=== PATIENT | female | born 1985 | race Caucasian/White ===

== ENCOUNTER 2017-06-02 22:53 | Emergency (ER) | payer MEDICAID, SELFPAY ==
[2017-06-02 22:54] VITALS: BP 142/91; PULSE 130; RESP 18; TEMP 37.1; O2SAT 98; BMI 31.1
--- NOTE | 2017-06-02 23:36 | EKG12_ITS ---
Test Reason : CP Blood Pressure : / mmHG Vent. Rate : 117 BPM Atrial Rate : 117 BPM P-R Int : 146 ms QRS Dur : 076 ms QT Int : 312 ms P-R-T Axes : 031 083 013 degrees QTc Int : 435 ms Sinus tachycardia Otherwise normal ECG Confirmed by JAY JAY HEALY, CATALINA ([id number]), photographic editor AMRIK HOOVER ([id number]) on 06/05/2017 12:57:18 PM Referred By: LISBETH Confirmed By:CATALINA GOYAL MD
--- NOTE | 2017-06-02 23:48 | RAD_ITS ---
STUDY: X-RAY CHEST REASON FOR EXAM: Female, 31 years old. chest pain TECHNIQUE: Single AP portable view of the chest. COMPARISON: None. FINDINGS: The lungs are clear and expanded. There is no demonstrated pleural abnormality. Normal size heart. Normal mediastinum and shruthi. Normal visualized pulmonary arteries. Normal visualized aortic arch and descending thoracic aorta. Normal visualized thoracic spine. Normal visualized ribs, clavicles, and shoulders. There is no demonstrated abnormality of the visualized soft tissue structures of the upper abdomen. RAD/Chest PA and Lateral IMPRESSION: Normal x-ray examination of the chest. Electronically Signed: Teresa Morse MD at 0:09 EST Tel , Service support ,
[2017-06-02 23:49] VITALS: O2SAT 99
--- NOTE | 2017-06-02 23:49 | ED.DCSUM_ITS ---
- ER Visit Summary Date of Service: 06/02/17 Chief Complaint: Chest pain History of Present Illness: The patient is a 31 F with central substernal sharp pleuritic chest pain that started about 2 hours prior to evaluation while she was sitting, resting at home. Associated with dyspnea, radiation to her neck and throat and jaw, no lateralizing here. Also radiates to her mid back between her scapulae, and has discomfort down her left upper extremity. Also has some epigastric discomfort and some nausea. Minor cough recently with some runny nose. No leg pain or swelling. No recent travel, hospitalization, surgery, history of DVT/PE. Has a history of PVCs, has felt nothing unusual tonight. Takes no medications. Physical Examination: Well-appearing in no distress. Tachycardic in the 120 area. Sinus tach on the monitor. Otherwise vital signs are normal. Pulse ox 98% on room air. She does not appear uncomfortable. Chest is nontender, epigastrium is tender. No other abdominal tenderness. No guarding or rebound or distention, normal bowel sounds present. Lungs are clear to auscultate throughout, no splinting on deep inspiration. Equal bilateral 2+/4 radial pulses. No calf tenderness or pedal edema bilaterally. Test Results: EKG shows sinus tachycardia 117 with no acute injury pattern, normal axis. Labs show a slightly elevated d-dimer but are otherwise unremarkable. Chest x-ray unremarkable. CTA chest normal/negative. Emergency Department Course and Treatment: Initially patient was given a GI cocktail but it did not help her discomfort. She developed a headache and nausea. She was initially given Toradol but it did not help her headache. It did help her chest feel much better although not completely gone, she can still feel discomfort when she took a breath. After Compazine her head and nausea feel much better. I reassure her, her EKG is normal except for the tachycardia. When I would reevaluate her heart rate was in the mid 90s, and as she would talk and breathe it would quickly go to the 110s. Sinus tachycardia, no dysrhythmia or ectopy seen as I was watching this. I think she is stable to be discharged home on NSAID, suspect that her discomfort is more related to pleurisy. It is not impossible that she could have esophageal spasm although that is difficult to rule out and test for in the ED. Treatment Plan: Naproxen prn, follow-up --referred to PCP Disposition: Discharge home Impression: Pleurisy This note was generated with [employer] dictation software. It may contain incorrect words, spelling, and punctuation that were not noted in review of the chart prior to signing ED Disposition - Plan for ED Patient: Disposition: Home or Assisted Living Chief Complaint: Chest Pain Instructions: ED Chest Pain Pleurisy Prescriptions: Naproxen [Naprosyn] 500 mg PO BID PRN #20 tab Referrals: Zina Parks MD [STAFF PHYSICIAN] - 3-5 Days if not improving
[2017-06-02 23:50] LABS: Absolute Lymphocyte Count 1.98 X10^3/ul (0.83-4.51); Basophil# 0.05 X10^3/uL; Basophil% 0.2 % (0-1); Eosinophil# 0.13 X10^3/uL; Eosinophils% 0.6 % (0-5); Hematocrit 42.3 % (37-47); Hemoglobin 14.7 g/dl (12.0-15.0); Lymphocyte # 1.98 X10^3/ul (4.0); Lymphocyte % 9.8 % (19-41); Mean Corp Hgb Conc 34.8 g/gl (32-36); Mean Corpuscular Hgb 29.2 pg (27.0-32.0); Mean Corpuscular Volume 83.9 fL (81-99); Mean Platelet Vol. 9.9 fl (6.2-12.0); Monocyte# 0.96 X10^3/uL; Monocyte% 4.8 % (0-10); Neutrophil # 17.03 X10^3/uL (2.7-7.7); Neutrophil % 84.3 % (47-70); Platelet Count 249 K/mm3 (150-450); RBC Distribution Width CV 12.9 % (11.6-14.6); RBC Distribution Width SD 39.1 fl (35.1-43.9); Red Blood Count 5.04 M/mm3 (4.2-5.4); White Blood Count 20.2 K/mm3 (4.4-11.0)
[2017-06-02 23:51] LABS: POSITIVE COUNT NO; POSITIVE DIFFERENTIAL NO; POSITIVE MORPHOLOGY NO
[2017-06-03 00:02] LABS: D-Dimer Quantitative (DVT/PE) 0.59 FEU/ug/m (0.27-0.49)
--- NOTE | 2017-06-03 00:02 | ED.RN ---
DR. BOB NOTIFIED OF CRITICAL D-DIMER 0.59
[2017-06-03 00:11] LABS: BUN 19 mg/dL (7-18); Creatinine, Serum 0.92 mg/dL (0.55-1.02); Estimated Creatinine Clearance 66.86 ml/min; Glucose 115 mg/dL (74-106)
[2017-06-03 00:12] LABS: Anion Gap 12 (5-15); BUN/Creat Ratio 20.7 RATIO (10-20); Calcium,Total 9.3 mg/dL (8.5-10.1); Chloride 106 mmol/L (98-107); EST Glomerular Filtration Rate 76 mL/min (>60); Est Glom Filt Rate - Afr Amer 92 mL/min (>60); Potassium 3.5 mmol/L (3.5-5.1); Sodium Level 138 mmol/L (136-145)
--- NOTE | 2017-06-03 00:15 | ED.RN ---
lab called with critical lab results. d-dimer 0.59. dr. bailey made aware. no new orders at this time
[2017-06-03 00:30] VITALS: BP 123/91; PULSE 126; RESP 27; O2SAT 97
--- NOTE | 2017-06-03 00:43 | CT_ITS ---
STUDY: CTA CHEST REASON FOR EXAM: Female, 31 years old. SOB/ELEV DDIMER. Hx of cholecystectomy RADIATION DOSAGE (If Supplied By Facility): CTDIvol = ( 12.24 ) mGy, DLP = ( 446.63 ) mGycm TECHNIQUE: The examination was performed with the intravenous administration of 100ml ml of Isovue 370 contrast material. Post-processing of the angiographic images was performed, with multiplanar reformation and 3D reconstruction. Individualized dose optimization techniques were used for this CT. COMPARISON: None. FINDINGS: Normal enhancement of the main pulmonary artery and right and left pulmonary arteries. There is limited evaluation of the bilateral peripheral pulmonary arteries due to motion artifacts. There is no demonstrated pulmonary embolism. Normal thoracic aorta and visualized great vessels. There is no demonstrated aortic dissection. Normal heart and pericardium. Normal mediastinum. Normal hilar regions. Normal visualized trachea and bronchi. The lungs are well expanded. Normal pulmonary parenchyma. Normal pleura. Normal chest wall structures. Normal osseous structures. There is fatty infiltration of the liver CT/CTA Chest W/WO Contrast IMPRESSION: No demonstrated pulmonary embolism or arterial dissection. Electronically Signed: Teresa Morse MD at 2:29 EST Tel , Service support ,
[2017-06-03] MEDS: Ketorolac 30 MG/ML Syringe IV (01:26)
[2017-06-03 02:00] VITALS: BP 121/84; PULSE 108; RESP 15; O2SAT 97
[2017-06-03] MEDS: proCHLORPERazine 10 MG/2 ML Vial 5 MG IV (02:22)
[2017-06-03 02:46] VITALS: BP 108/76; PULSE 104; RESP 18; O2SAT 96
[2017-06-03 03:28] VITALS: BP 118/70; PULSE 98; RESP 19; O2SAT 93
== END 2017-06-03 03:29 | disposition home or self-care (01) ==
PROVIDERS: Emergency Provider Emergency Medicine
DX: R09.1 Pleurisy (principal); R74.8 Abnormal levels of other serum enzymes; R00.0 Tachycardia, unspecified; R11.0 Nausea; R51 Headache
CPT/HCPCS: 71046; 71275; 80048; 84484; 85025; 85379; 93005; 96361; 96374; 96375; 99285; J7030; J7040; Q9967; A4216

== ENCOUNTER 2017-06-30 23:18 | Emergency (ER) | payer MEDICAID, SELFPAY ==
[2017-06-30 23:19] VITALS: BP 148/88; PULSE 97; RESP 14; TEMP 36.1; O2SAT 99; BMI 37.2
--- NOTE | 2017-06-30 23:30 | RAD_ITS ---
STUDY: X-RAY - RIGHT WRIST REASON FOR EXAM: Female, 31 years old. Pain, twisting injury TECHNIQUE: 3 view(s) of the wrist were obtained. COMPARISON: None. FINDINGS: Normal visualized distal radius and ulna. Normal radiocarpal articulation. Normal distal radioulnar articulation. Normal carpal bones. Normal carpal articulations. Normal carpometacarpal articulation of the thumb. Normal second through fifth carpometacarpal articulations. Normal visualized metacarpal bones. The soft tissue structures are unremarkable. RAD/Wrist min 3 Views IMPRESSION: Normal x-ray examination of the wrist. Electronically Signed: Roseanne Del Rosario MD at 0:36 EDT Tel , Service support ,
--- NOTE | 2017-07-01 00:13 | ED.RN ---
ON TRIAGE PT REPORTS TO THIS RN THAT SHE DOES NOT FEEL SAFE AT HOME. PT REPORTS THIS IS NOT THE FIRST TIME SOMETHING LIKE THIS HAS HAPPENED TO HER. PT REPORTS SHE WOULD LIKE TO SPEAK WITH AN OFFICER. CHARGE NURSE YAEL NOTIFIED. REFERENCE SERVICES HEAD NOTIFIED.
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
[2017-07-01] MEDS: Ibuprofen 600 MG Tablet PO (02:09)
[2017-07-01 02:14] VITALS: PULSE 107; RESP 16; O2SAT 97
== END 2017-07-01 02:14 | disposition home or self-care (01) ==
LOC: ED 07-01 01:59
PROVIDERS: Emergency Provider Emergency Medicine
DX: Z04.71 Encounter for examination and observation following alleged adult physical abuse (principal); S63.501A Unspecified sprain of right wrist, initial encounter; S30.0XXA Contusion of lower back and pelvis, initial encounter; Y04.8XXA Assault by other bodily force, initial encounter; Y93.9 Activity, unspecified; Y92.9 Unspecified place or not applicable; Y99.9 Unspecified external cause status; I49.3 Ventricular premature depolarization
CPT/HCPCS: 73110; 99283

== ENCOUNTER 2018-12-31 14:02 | Emergency (ER) | payer MEDICAID, SELFPAY ==
[2018-12-31 14:04] VITALS: BP 130/72; PULSE 66; RESP 16; TEMP 36.6; O2SAT 98; BMI 28.0
[2018-12-31 14:29] VITALS: RESP 16
[2018-12-31 14:47] LABS: Absolute Lymphocyte Count 2.97 X10^3/uL (0.83-4.51); Absolute Neutrophil Count 3.9 X10^3/uL (2.0-7.7); Basophil# 0.05 X10^3/uL; Basophil% 0.7 % (0-1); Eosinophil# 0.14 X10^3/uL; Eosinophils% 1.8 % (0-5); Hematocrit 47.9 % (37-47); Hemoglobin 15.6 g/dL (12.0-15.0); Lymphocyte # 2.97 X10^3/ul (4.0); Lymphocyte % 39.2 % (19-41); Mean Corp Hgb Conc 32.6 g/dL (32-36); Mean Corpuscular Hgb 28.6 pg (27.0-32.0); Mean Corpuscular Volume 87.7 fL (81-99); Mean Platelet Vol. 9.8 fl (6.2-12.0); Monocyte# 0.55 X10^3/uL; Monocyte% 7.3 % (0-10); NRBC Flagged by Analyzer 0 % (0-5); Neutrophil # 3.85 X10^3/uL (2.7-7.7); Neutrophil % 50.7 % (47-70); Platelet Count 268 K/mm3 (150-450); RBC Distribution Width CV 12.9 % (11.6-14.6); RBC Distribution Width SD 41.3 fl (35.1-43.9); Red Blood Count 5.46 M/mm3 (4.2-5.4); White Blood Count 7.6 K/mm3 (4.4-11.0)
[2018-12-31 15:06] LABS: AST(SGOT) 27 U/L (15-37); Alanine Aminotransfer ALT/SGPT 51 U/L (13-56); Albumin, Serum 4.3 g/dL (3.2-5.0); Alkaline Phosphatase 148 U/L (45-117); Anion Gap 6 (5-15); BUN 15 mg/dL (7-18); BUN/Creat Ratio 18.7 RATIO (10-20); Bilirubin, Direct 0.13 mg/dL (0.00-0.30); Calcium,Total 9.1 mg/dL (8.5-10.1); Chloride 106 mmol/L (98-107); EST Glomerular Filtration Rate 88 mL/min (>60); Est Glom Filt Rate - Afr Amer 106 mL/min (>60); Estimated Creatinine Clearance 75.48 ml/min; Globulin 4.1 g/dL (2.2-4.2); Glucose 85 mg/dL (74-106); Lipase 118 U/L (73-393); Potassium 3.8 mmol/L (3.5-5.1); Protein, Total 8.4 g/dL (6.4-8.2); Sodium Level 141 mmol/L (136-145)
[2018-12-31] MEDS: 0.9% Normal Saline 1,000 ML 1000 ML IV (15:07)
[2018-12-31] MEDS: Ondansetron 4 MG/2 ML Vial IV (15:08)
[2018-12-31] MEDS: Mag Hydrox/Al Hydrox/Simeth 30 ML UDC PO (15:09)
[2018-12-31 15:30] LABS: Internal QC Validated? YES +Cl - CLEAR BKGD; Pregnancy, Serum, hCG Quali. NEGATIVE Negative
--- NOTE | 2018-12-31 16:25 | ED.DCSUM_ITS ---
History of Present Illness Chief Complaint: Abd Pain Informant: Patient Onset: Yesterday Narrative: Increasing epigastric abdominal pain radiates to the left side and across her abdomen since yesterday. Nausea without vomiting. Loose stool yesterday. No urinary symptoms. No fevers. History of cholecystectomy [place] [address] Esqueda. No fevers. Prior similar symptoms: Yes Past Medical History - Allergies and Home Meds Allergies/Adverse Reactions: Allergies hydrocodone bitartrate [From Vicodin] Adverse Reaction (Verified 12/31/18 14:04) Other jittery and heart races tramadol [From Ultram] Adverse Reaction (Verified 12/31/18 14:04) Nausea Primary Care Physician: Care Physician,No Primary [Primary Care Provider] - Surgical History: - - wisdom teeth extraction Smoking Status: Never smoker - Family History Maternal Family History: Reports: - - pt was adopted and has no knowledge of her parents. Review of Systems General: Denies: Chills, Fever, Sweats Eyes: Denies: Visual changes - bilaterally, Diplopia ENT: Denies: Rhinorrhea, Sore throat Cardiovascular: Denies: Chest pain, Palpitations Respiratory: Denies: Dyspnea, Cough, Dyspnea on exertion Gastrointestinal: Reports: Abdominal pain, Nausea. Denies: Vomiting, Diarrhea, Melena, Hematochezia Genitourinary: Denies: Dysuria, Hematuria, Frequency Musculoskeletal: Denies: Back pain, Extremity Pain Skin: Denies: Rash, Wounds Neurological: Denies: Headache, Weakness, Numbness Physical Exam Vital Signs/Narrative: Vital Signs Temp Pulse Resp BP Pulse Ox 12/31/18 14:29 16 12/31/18 14:04 98 F 66 16 130/72 H 98 Inital Vital Signs reviewed: Yes General: Well nourished, Well developed, No Acute Distress Head: Normocephalic, Atraumatic Eyes: Perrl, EOMI ENT: Moist mucous membranes, No rhinorrhea Neck: Supple, Nontender Cardiovascular: Regular rate, Regular rhythm, No murmurs Respiratory: No distress, CTA bilaterally, Chest nontender Abdomen: Soft, Nondistended, Normal bowel sounds, Tender, - - slight tenderness epigastric, no G/R Back: Nontender, Normal Inspection Extremities: Nontender, No edema Skin: Normal color, No rash Neurological: Alert, Oriented x3, Cranial nerves II-XII grossly intact, Normal Strength, Normal Sensation Psychological: Normal affect, Normal Mood Diagnostic/Tx/Re-eval Abnormal Lab Results 12/31/18 12/31/18 12/31/18 14:25 14:25 14:25 WBC 7.6 RBC 5.46 H Hgb 15.6 H Hct 47.9 H MCV 87.7 MCH 28.6 MCHC 32.6 RDW Std Deviation 41.3 RDW Coeff of Johnny 12.9 Plt Count 268 MPV 9.8 Immature Gran % (Auto) 0.300 Neut % (Auto) 50.7 Lymph % (Auto) 39.2 [place] % (Auto) 7.3 Eos % (Auto) 1.8 Baso % (Auto) 0.7 Absolute Neuts (auto) 3.9 Absolute Lymphs (auto) 2.97 Nucleated RBC % 0 Sodium 141 Potassium 3.8 Chloride 106 Carbon Dioxide 29.0 Anion Gap 6 BUN 15 Creatinine 0.80 Estim Creat Clear Calc 75.48 Est GFR (MDRD) Af Amer 106 Est GFR (MDRD) Non-Af 88 BUN/Creatinine Ratio 18.7 Glucose 85 Calcium 9.1 Total Bilirubin 0.60 Direct Bilirubin 0.13 AST 27 ALT 51 Alkaline Phosphatase 148 H Total Protein 8.4 H Albumin 4.3 Globulin 4.1 Lipase 118 Serum , Qual NEGATIVE Patient nontoxic, vital signs stable, nonsurgical abdomen. History of cholecystectomy. Abdominal labs obtained normal labs including lipase and LFTs. hCG negative. Given fluids, Zofran, GI cocktail. Reevaluation reports she had similar improvement with a GI cocktail, she denies any GI bleed issues. She will be a prescription for Zofran, omeprazole, Carafate. She will follow-up with Dr. Esqueda as an outpatient. ED Disposition - Plan for ED Patient: Disposition: [facility] Diagnosis: Acute gastritis without bleeding Instructions: GASTRITIS vs. ULCER Prescriptions: Sucralfate [Carafate] 1 gm PO 4X/DAY #60 tablet Omeprazole 40 mg PO DAILY #30 capsule. Ondansetron [Zofran Odt] 4 mg PO Q8H PRN PRN #10 tablet PRN Reason: Nausea Referrals: Care Physician,No Primary [Primary Care Provider] - Tangela Esqueda MD [STAFF PHYSICIAN] - 5-7 Days
[2018-12-31 16:50] VITALS: BP 113/78; PULSE 55; RESP 16; O2SAT 100
== END 2018-12-31 16:51 | disposition home or self-care (01) ==
PROVIDERS: Emergency Provider Emergency Medicine
DX: K29.00 Acute gastritis without bleeding (principal); Z88.8 Allergy status to other drugs, medicaments and biological substances; Z88.5 Allergy status to narcotic agent; Z90.49 Acquired absence of other specified parts of digestive tract
CPT/HCPCS: 80048; 80076; 83690; 84703; 85025; 96361; 96374; 99285; J7030; A4216; J2405

== ENCOUNTER 2019-01-03 13:45 | Emergency (ER) | payer MEDICAID, SELFPAY ==
[2019-01-03 13:45] VITALS: BP 123/68; PULSE 73; RESP 18; TEMP 37; O2SAT 99; BMI 27.6
--- NOTE | 2019-01-03 14:21 | ED.VISSUMM ---
- ER Visit Summary Date of Service: 01/03/19 Chief Complaint: Diffuse abdominal pain for 1 week. History of Present Illness: The patient is a 33 F and is post cholecystectomy and prior . Patient states for 1 week since last Friday evening she has had abdominal pain basically from her lower abdomen up to her epigastric and right upper quadrant. She denies any fever or chills. She denies nausea without vomiting or diarrhea. No constipation. No menstrual bleeding or discharge. Last menstrual period was approximately a week ago. She has been recently seen in this emergency department had a negative work-up. At that time was felt to be possibly gastritis. She denies any melena. Physical Examination: Well-appearing young female vital signs are stable afebrile. HEENT exam unremarkable. Lungs clear to auscultation. Heart regular rhythm no murmur. Abdomen is soft. Nondistended normal bowel sounds no peritoneal signs. She describes tenderness in the periumbilical epigastric and suprapubic region. Is not specifically reproducible. Positive bowel sounds. No hernias or masses. No peritoneal signs. No signs of obstruction. Back nontender. Moving all 4 extremities. Neurologically awake and alert. Test Results: Normal white count of 6. Hemoglobin 13. No bands. Chemistries normal normal creatinine gap. Liver enzymes unremarkable alkaline phosphatase 136. Lipase 125. UA negative. Emergency Department Course and Treatment: I reviewed the patient's recent work-up CBC, chemistry, liver and lipase tests were all negative. She will be treated with GI cocktail and Protonix here orally. Repeat exam patient is doing well at 1515 p.m. GI cocktail Protonix and to help her. Abdomen is benign. Treatment Plan: Protonix for possible gastritis. Outpatient follow-up. Disposition: Discharge Impression: Acute abdominal pain uncertain etiology Gastritis This note was generated with [employer] dictation software. It may contain incorrect words, spelling, and punctuation that were not noted in review of the chart prior to signing ED Disposition - Plan for ED Patient: Referrals: Care Physician,No Primary [Primary Care Provider] -
[2019-01-03 14:36] LABS: Absolute Lymphocyte Count 2.23 X10^3/uL (0.83-4.51); Basophil# 0.05 X10^3/uL; Basophil% 0.7 % (0-1); Eosinophil# 0.11 X10^3/uL; Eosinophils% 1.6 % (0-5); Hematocrit 42.4 % (37-47); Hemoglobin 13.8 g/dL (12.0-15.0); Lymphocyte # 2.23 X10^3/ul (4.0); Lymphocyte % 32.6 % (19-41); Mean Corp Hgb Conc 32.5 g/dL (32-36); Mean Corpuscular Hgb 28.5 pg (27.0-32.0); Mean Corpuscular Volume 87.6 fL (81-99); Mean Platelet Vol. 9.6 fl (6.2-12.0); Monocyte# 0.45 X10^3/uL; Monocyte% 6.6 % (0-10); NRBC Flagged by Analyzer 0 % (0-5); Neutrophil # 3.99 X10^3/uL (2.7-7.7); Neutrophil % 58.4 % (47-70); Platelet Count 232 K/mm3 (150-450); RBC Distribution Width CV 12.5 % (11.6-14.6); RBC Distribution Width SD 40.4 fl (35.1-43.9); Red Blood Count 4.84 M/mm3 (4.2-5.4); White Blood Count 6.8 K/mm3 (4.4-11.0)
[2019-01-03 14:51] LABS: AST(SGOT) 18 U/L (15-37); Alanine Aminotransfer ALT/SGPT 39 U/L (13-56); Alkaline Phosphatase 136 U/L (45-117); Anion Gap 5 (5-15); BUN 17 mg/dL (7-18); Bilirubin, Direct 0.12 mg/dL (0.00-0.30); Calcium,Total 8.9 mg/dL (8.5-10.1); Chloride 107 mmol/L (98-107); Creatinine, Serum 0.71 mg/dL (0.55-1.02); EST Glomerular Filtration Rate 101 mL/min (>60); Est Glom Filt Rate - Afr Amer 122 mL/min (>60); Estimated Creatinine Clearance 85.04 ml/min; Globulin 3.5 g/dL (2.2-4.2); Glucose 92 mg/dL (74-106); Lipase 125 U/L (73-393); Potassium 3.5 mmol/L (3.5-5.1); Protein, Total 7.5 g/dL (6.4-8.2); Sodium Level 141 mmol/L (136-145)
[2019-01-03] MEDS: Pantoprazole Sodium 40 MG Tablet PO (14:55)
[2019-01-03] MEDS: Mag Hydrox/Al Hydrox/Simeth 30 ML UDC PO (14:56)
[2019-01-03 15:04] LABS: Red Blood Cells-Urine 0 SEEN /hpf (0-5); White Blood Cells 0 SEEN /hpf (0-5)
[2019-01-03 15:05] LABS: Color, Urine Yellow (Yellow); Glucose, Dipstick Normal (Normal); Ketone-Dipstick 15 mg/dl (Negative); Leukocyte Esterase-Dipstick Negative /ul (Negative); Nitrite-Dipstick Negative (Negative); Occult Blood-Urine Negative /ul (Negative); Protein-Dipstick 15 mg/dl (Negative); Specific Gravity, Urine 1.015 (1.002-1.030); Urine Bilirubin Dipstick Negative (Negative); Urine Clarity Sl. Cloudy (Clear); Urine Urobilinogen 1 mg/dl (Normal)
[2019-01-03 15:11] LABS: Amorphous Sediment 1+; Bacteria RARE /hpf (None Seen); Mucous, Urine 2+ /hpf (<or=2+); Squamous Epithelial Cells - UA 0-5 SEEN /hpf (5-10)
--- NOTE | 2019-01-03 15:19 | ED.DEP ---
ED Disposition - Plan for ED Patient: Disposition: Home or Assisted Living Instructions: ABDOMINAL PAIN, Unknown Cause, (Female) Prescriptions: Pantoprazole Sodium [Protonix] 20 mg PO DAILY #20 tab Prescription Printed Referrals: Augie Rodrigues MD [NON-STAFF] - 1-2 Weeks Additional Instructions: Protonix for possible gastritis Follow-up with local doctor.
== END 2019-01-03 15:35 | disposition home or self-care (01) ==
PROVIDERS: Emergency Provider Emergency Medicine
DX: K29.70 Gastritis, unspecified, without bleeding (principal); R10.9 Unspecified abdominal pain; R11.0 Nausea; Z90.49 Acquired absence of other specified parts of digestive tract
CPT/HCPCS: 80048; 80076; 81001; 83690; 85025; 99284; A4216

== ENCOUNTER → 2019-01-14 11:35 | Outpatient (CLI) | payer MEDICAID, SELFPAY ==
[2019-01-03 13:45] VITALS: BMI 27.6
--- NOTE | 2019-01-20 16:52 | STRESSREP ---
Stress Test Report Date: 01/14/2019 Procedure: Exercise tolerance test Indications: Chest pain Consent: Per the patient Procedure: The patient exercised on a Herman protocol for 9 minutes achieving a peak heart rate of 146 bpm (78 % predicted maximal heart rate) with a peak blood pressure 130/80 mmHg and a peak MET capacity of approximately 10.1 mET's. The baseline ECG demonstrated normal sinus rhythm. The peak exercise ECG demonstrated no significant ischemic changes. Patient had some chest discomfort at rest which got worse with exertion. She also had shortness of breath dizziness and tingling sensation in her hands. The functional capacity was considered average for age. The examination was discontinued secondary to symptoms described above. Impression: 1. Technically suboptimal exercise tolerance test due to inability to reach target heart rate. 2. The test is negative for exercise-induced EKG changes of ischemia. However the sensitivity of the test is decreased because of inability to reach target heart rate. 3. Patient had chest pain at rest that was worse with exertion. This note was generated with [employer] software. It may contain incorrect words, spelling, and punctuation that were not noted in checking the note before signing.
== END ==
PROVIDERS: Family Provider Nurse Practitioner Primary Care; PCP Nurse Practitioner Primary Care; Referring Provider Nurse Practitioner Primary Care; Visit Provider Nurse Practitioner Primary Care
DX: R07.9 Chest pain, unspecified (principal)
CPT/HCPCS: 93017

== ENCOUNTER → 2019-05-19 11:51 | Outpatient (CLI) | payer MEDICAID, SELFPAY ==
--- NOTE | 2019-05-19 13:45 | NEURO ---
NCS and/or EMG Patient Report Ordering Doctor: Radha Campos DATE OF SERVICE: 05/19/19 Samantha Dwyer is a 33-year-old female presents for electrodiagnostic testing of the upper limbs. She works numbness and tingling in both hands. Electrodiagnostic findings: Nerve conduction study, median motor nerve demonstrates normal distal latency, amplitude and conduction velocity bilaterally. Ulnar motor response normal bilaterally, including conduction across the elbow. Normal median ulnar F waves. Sensory responses are within normal limits. On needle EMG, all muscles tested in the upper limb showed no evidence of denervation with normal motor unit action potentials. Electrodiagnostic impression: This is a normal electrodiagnostic study of the upper limbs. There is no electrodiagnostic evidence for peripheral neuropathy, including cubital tunnel or carpal tunnel syndrome. There is no electrodiagnostic evidence for cervical radiculopathy. If there are any further questions, please do not hesitate to contact me.
== END ==
PROVIDERS: Family Provider Nurse Practitioner Primary Care; PCP Nurse Practitioner Primary Care; Referring Provider Nurse Practitioner Primary Care; Visit Provider Nurse Practitioner Primary Care
DX: R20.0 Anesthesia of skin (principal); R20.2 Paresthesia of skin
CPT/HCPCS: 95886; 95912

== ENCOUNTER → 2019-11-18 | Outpatient (CLI) | payer MEDICAID, SELFPAY ==
[2019-11-18 09:33] VITALS: BMI 27.6
[2019-11-18 11:33] LABS: Amphetamine Urine VISTA NEGATIVE (<1000 ng/mL); Barbiturate Urine VISTA NEGATIVE (< 200 ng/mL); Benzodiazepine Urine VISTA NEGATIVE (< 200 ng/mL); Cocaine Urine VISTA NEGATIVE (< 300 ng/mL); Ecstacy Urine VISTA NEGATIVE (< 500 ng/mL); Methadone Urine VISTA NEGATIVE (< 300 ng/mL); PCP Urine VISTA NEGATIVE (< 25 ng/mL); THC Urine VISTA NEGATIVE (< 50 ng/mL); Vista UDS pH Range 5
== END | disposition home or self-care (01) ==
LOC: LABSPEC 10:44
PROVIDERS: PCP Nurse Practitioner Primary Care; Referring Provider Obstetrics & Gynecology; Visit Provider Obstetrics & Gynecology
DX: Z34.90 Encounter for supervision of normal pregnancy, unspecified, unspecified trimester (principal)
CPT/HCPCS: 80307; 87086; 87088

== ENCOUNTER → 2019-11-22 13:09 | Outpatient (CLI) | payer MEDICAID, SELFPAY ==
[2019-11-18 09:33] VITALS: BMI 27.6
[2019-11-22 13:55] LABS: Absolute Neutrophil Count 2.6 X10^3/uL (2.0-7.7); Basophil# 0.02 X10^3/uL; Basophil% 0.4 % (0-1); Eosinophil# 0.09 X10^3/uL; Eosinophils% 1.9 % (0-5); Hematocrit 38.9 % (37-47); Hemoglobin 12.7 g/dL (12.0-15.0); Lymphocyte % 31.7 % (19-41); Mean Corp Hgb Conc 32.6 g/dL (32-36); Mean Corpuscular Hgb 28.3 pg (27.0-32.0); Mean Corpuscular Volume 86.8 fL (81-99); Mean Platelet Vol. 9.8 fl (6.2-12.0); Monocyte# 0.47 X10^3/uL; Monocyte% 9.9 % (0-10); NRBC Flagged by Analyzer 0 % (0-5); Neutrophil # 2.64 X10^3/uL (2.7-7.7); Neutrophil % 55.9 % (47-70); Platelet Count 172 K/mm3 (150-450); RBC Distribution Width CV 13.7 % (11.6-14.6); RBC Distribution Width SD 43.5 fl (35.1-43.9); Red Blood Count 4.48 M/mm3 (4.2-5.4); White Blood Count 4.7 K/mm3 (4.4-11.0)
[2019-11-22 14:37] LABS: NATERA MAILED SPECIMEN
[2019-11-22 15:20] LABS: HIV - WCH Non-Reactive (Nonreactive); Hepatitis B Surface Antigen Non-Reactive (Nonreactive); Hepatitis C Antibody Non-Reactive (Nonreactive); Rubella IgG 187.4 IU/mL
[2019-11-23 16:56] LABS: V-Zoster IgG (Immunity) 604 index (Immune >165)
[2019-11-25 02:04] LABS: Rapid Plasmin Reagin (RPR) NONREACTIVE (NONREACTIVE)
== END ==
PROVIDERS: PCP Nurse Practitioner Primary Care; Referring Provider Obstetrics & Gynecology; Visit Provider Obstetrics & Gynecology
DX: Z34.81 Encounter for supervision of other normal pregnancy, first trimester (principal); Z31.430 Encounter of female for testing for genetic disease carrier status for procreative management
CPT/HCPCS: 36415; 85025; 86592; 86703; 86762; 86787; 86803; 86850; 86900; 86901; 87340

== ENCOUNTER → 2019-12-17 | Outpatient (CLI) | payer MEDICAID, SELFPAY ==
[2019-12-17 09:18] VITALS: BMI 27.6
[2019-12-17 17:53] LABS: Chlamydia Trachomatis by PCR Negative (Negative); Neisserai gonorrhoeae by PCR Negative (Negative); Probe Check PASS; Sample Adequacy Control PASS; Specimen Processing Control PASS
== END | disposition home or self-care (01) ==
LOC: LABSPEC 12:45
PROVIDERS: PCP Nurse Practitioner Primary Care; Referring Provider Obstetrics & Gynecology; Visit Provider Obstetrics & Gynecology
DX: Z34.90 Encounter for supervision of normal pregnancy, unspecified, unspecified trimester (principal)
CPT/HCPCS: 87491; 87591

== ENCOUNTER 2020-01-28 09:44 | Emergency (ER) | payer MEDICAID, SELFPAY ==
[2020-01-28 09:09] VITALS: BMI 27.6
[2020-01-28 09:45] VITALS: BP 132/83; PULSE 99; RESP 20; TEMP 36.9; O2SAT 98; BMI 32.6
--- NOTE | 2020-01-28 10:04 | CT_ITS ---
STUDY: CT ABDOMEN AND PELVIS WITH CONTRAST REASON FOR EXAM: Female, 34 years old. RLQ PAIN/ ? APPY 20 WKS RADIATION DOSAGE (If Supplied By Facility): CTDIvol = ( 16.18 ) mGy, DLP = ( 1093.07 ) mGycm TECHNIQUE: Transaxial images were obtained from the dome of the diaphragm to the symphysis pubis without oral contrast. IV 100mL Isovue-300 was administered. Sagittal and coronal images were reconstructed. Individualized dose optimization techniques were used for this CT. COMPARISON: None. FINDINGS: The visualized lung bases are unremarkable. The visualized portions of the heart are within normal limits. Normal liver. There is non-visualization of the gallbladder, which may be secondary to either contraction or a prior cholecystectomy. Normal spleen. Normal pancreas. Normal bilateral adrenal glands. Normal right kidney. Normal left kidney. Normal visualized stomach. Normal small intestine. Normal colon. There is non-visualization of the appendix. Normal abdominal aorta. Normal inferior vena cava. Normal retroperitoneum. Normal urinary bladder. Enlarged gravid uterus. Normal abdominal wall. Normal osseous structures. CT/Abdomen/Pelvis WITH Contrast IMPRESSION: Normal enhanced CT of the abdomen and pelvis. Electronically Signed: Kenny Marshall MD at 12:39 EDT Tel , Service support ,
[2020-01-28 10:24] LABS: Absolute Lymphocyte Count 1.87 X10^3/uL (0.83-4.51); Absolute Neutrophil Count 8.4 X10^3/uL (2.0-7.7); Basophil# 0.04 X10^3/uL; Basophil% 0.4 % (0-1); Eosinophil# 0.23 X10^3/uL; Hematocrit 38.7 % (37-47); Hemoglobin 12.5 g/dL (12.0-15.0); Lymphocyte # 1.87 X10^3/ul (4.0); Lymphocyte % 16.4 % (19-41); Mean Corp Hgb Conc 32.3 g/dL (32-36); Mean Corpuscular Hgb 28.6 pg (27.0-32.0); Mean Corpuscular Volume 88.6 fL (81-99); Mean Platelet Vol. 9.1 fl (6.2-12.0); Monocyte# 0.83 X10^3/uL; Monocyte% 7.3 % (0-10); NRBC Flagged by Analyzer 0 % (0-5); Neutrophil # 8.36 X10^3/uL (2.7-7.7); Neutrophil % 73.4 % (47-70); Platelet Count 243 K/mm3 (150-450); RBC Distribution Width CV 13.4 % (11.6-14.6); RBC Distribution Width SD 43.8 fl (35.1-43.9); Red Blood Count 4.37 M/mm3 (4.2-5.4); White Blood Count 11.4 K/mm3 (4.4-11.0)
[2020-01-28 10:26] LABS: Mucous, Urine 0 SEEN /hpf (<or=2+); Red Blood Cells-Urine 0 SEEN /hpf (0-5); White Blood Cells 0 SEEN /hpf (0-5)
[2020-01-28 10:32] LABS: Color, Urine Yellow (Yellow); Glucose, Dipstick Normal (Normal); Ketone-Dipstick 15 mg/dl (Negative); Leukocyte Esterase-Dipstick 25 /ul (Negative); Nitrite-Dipstick Negative (Negative); Occult Blood-Urine Negative /ul (Negative); Protein-Dipstick Negative (Negative); Urine Bilirubin Dipstick Negative (Negative); Urine Clarity Cloudy (Clear); Urine Urobilinogen Normal (Normal)
[2020-01-28 10:38] LABS: ALB/GLOB Ratio 0.8 RATIO (0.9-2.4); AST(SGOT) 18 U/L (15-37); Alanine Aminotransfer ALT/SGPT 23 U/L (13-56); Albumin, Serum 3.1 g/dL (3.2-5.0); Alkaline Phosphatase 95 U/L (45-117); Anion Gap 9 (5-15); BUN 10 mg/dL (7-18); BUN/Creat Ratio 16.7 RATIO (10-20); Calcium,Total 8.9 mg/dL (8.5-10.1); Chloride 109 mmol/L (98-107); EST Glomerular Filtration Rate 122 mL/min (>60); Est Glom Filt Rate - Afr Amer 147 mL/min (>60); Estimated Creatinine Clearance 99.69 ml/min; Globulin 3.8 g/dL (2.2-4.2); Glucose 94 mg/dL (74-106); Lipase 80 U/L (73-393); Potassium 3.8 mmol/L (3.5-5.1); Protein, Total 6.9 g/dL (6.4-8.2); Sodium Level 139 mmol/L (136-145)
[2020-01-28 10:40] LABS: Amorphous Sediment 2+; Bacteria 2+ /hpf (None Seen); Squamous Epithelial Cells - UA 50-100 SEEN /hpf (5-10)
[2020-01-28] MEDS: Morphine 4 MG/ML Syringe IV (11:10)
[2020-01-28] MEDS: Ondansetron 4 MG/2 ML Vial IV (11:10)
[2020-01-28] MEDS: 0.9% Normal Saline 1,000 ML 1000 ML IV (11:10)
[2020-01-28 12:09] VITALS: BP 104/60; PULSE 80; RESP 16; O2SAT 100
--- NOTE | 2020-01-28 12:45 | ED.RN ---
PT ASSISTED UP TO BATHROOM. PT COMPLAINS OF CONTINUED PAIN, DR. CURRAN MADE AWARE.
--- NOTE | 2020-01-28 12:45 | ED.VISSUMM ---
- ER Visit Summary Date of Service: 01/28/20 Chief Complaint: Abdominal pain History of Present Illness: The patient is a [address] Joey Shepherd and . She is a G2, P1 at 20 weeks of . She reports she is right side abdominal pain that began 3 days ago. Is a sharp pain is 1010 worsening a 10 currently. Is worsened by movement relieved by remaining still. She is had nausea without vomiting. No diarrhea. Her last bowel was today. No hematochezia. No dysuria or frequency. No vaginal discharge. She reports that she is spotted twice in the past 6 days. Physical Examination: Vitals: Stable. Afebrile. General: Well-nourished and well-developed. Head: Normocephalic atraumatic. Neck: Supple, no lymphadenopathy. No JVD. Nontender. Cardiovascular: Regular rate and rhythm. No murmurs. Respiratory: No respiratory distress. Clear to auscultation bilaterally. Abdominal: Soft, moderate right upper quadrant tenderness and mild right lower quadrant tenderness to palpation, nondistended, normal bowel sounds. No guarding, rebound, or peritoneal signs. Gravid uterus. Back: Nontender. Extremities: Nontender, no edema. Skin: Normal color, no rash. Neurologic: Alert and oriented ?3. Cranial nerves II through XII are intact. Normal strength and sensation. Psych: Normal affect. Test Results: CBC shows a white count 11.4 with segmented for 70 lymphs at 16. Chem-7 shows a chloride of 109. LFTs are normal. Lipase is 80. UA is negative. Clinical Impression(s) from Imaging Studies Abdomen/Pelvis CT 01/28/20 10:04 IMPRESSION: Normal enhanced CT of the abdomen and pelvis. Electronically Signed: Kenny Marshall MD at 12:39 EDT Tel , Service support , Emergency Department Course and Treatment: Patient had heart tones of 145. She was given a dose of Zofran and morphine IV initially. When the CT returned and was unremarkable she was given Tylenol p.o. They did not visualize her appendix on CT. However, she has had 3 days of pain and I would expect that she would have some inflammatory changes if she did have appendicitis. Treatment Plan: Patient was discussed with Dr. Joey Shepherd. She be discharged with Zofran and Tylenol. Follow-up with her in 2 weeks for another exam. Return to the emergency department for any worsening symptoms. Of note Dr. Joey Shepherd saw the patient prior to arrival to the emergency department and had a prolonged discussion with her about the risk of CT during . Disposition: To home in improved and stable condition. Impression: 1. Abdominal pain, uncertain cause. 2. Second trimester . This note was generated with [employer] dictation software. It may contain incorrect words, spelling, and punctuation that were not noted in review of the chart prior to signing ED Disposition - Plan for ED Patient: Instructions: ED Abdominal Pain Unkn Cause Fem Prescriptions: Ondansetron [Zofran Odt] 4 mg PO Q8H PRN PRN #10 tablet PRN Reason: Nausea Referrals: PodlogRadha medina NP, PROCESS CONTROL SUPERVISOR-C [Primary Care Provider] - Kae Lindsey MD [STAFF PHYSICIAN] - 1-2 Weeks
[2020-01-28] MEDS: Acetaminophen 500 MG Tablet 1000 MG PO (12:56)
--- NOTE | 2020-01-28 12:59 | ED.RN ---
IV DC'ED, CATHETER INTACT, SMALL GAUZE DRESSING PLACED. DISCHARGE INSTRUCTIONS GIVEN TO AND REVIEWED WITH PATIENT, PATIENT DENIES QUESTIONS OR CONCERNS AND VOICES UNDERSTANDING OF DISCHARGE INSTRUCTIONS. PT AMBULATES OUT OF ROOM WITHOUT DIFFICULTY.
== END 2020-01-28 13:00 | disposition home or self-care (01) ==
LOC: ED 10:38
PROVIDERS: Emergency Provider Emergency Medicine; PCP Nurse Practitioner Primary Care
DX: O26.892 Other specified pregnancy related conditions, second trimester (principal); R10.11 Right upper quadrant pain; R10.31 Right lower quadrant pain; Z3A.20 20 weeks gestation of pregnancy
CPT/HCPCS: 74177; 80053; 81001; 83690; 85025; 96361; 96374; 96375; 99284; J7030; Q9967; J2405

== ENCOUNTER 2020-02-21 17:10 | Outpatient (CLI) | payer MEDICAID, SELFPAY ==
[2020-02-07 09:45] VITALS: BMI 33.4
[2020-02-21 17:29] VITALS: BP 115/53; PULSE 84; PULSE 88; TEMP 36.9; O2SAT 98
[2020-02-21 17:31] VITALS: BMI 31.4
[2020-02-21 18:59] LABS: Fibrinogen 465 mg/dl (203-444)
[2020-02-21 19:21] VITALS: BP 129/62; PULSE 85
[2020-02-21 19:26] VITALS: PULSE 99; TEMP 37; O2SAT 99
[2020-02-21 19:41] LABS: Absolute Lymphocyte Count 2.12 X10^3/uL (0.83-4.51); Basophil# 0.06 X10^3/uL; Basophil% 0.5 % (0-1); Eosinophils% 1.8 % (0-5); Hematocrit 37.2 % (37-47); Hemoglobin 11.9 g/dL (12.0-15.0); Lymphocyte # 2.12 X10^3/ul (4.0); Lymphocyte % 18.7 % (19-41); Mean Corpuscular Hgb 28.7 pg (27.0-32.0); Mean Corpuscular Volume 89.6 fL (81-99); Mean Platelet Vol. 9.6 fl (6.2-12.0); Monocyte# 0.91 X10^3/uL; NRBC Flagged by Analyzer 0 % (0-5); Neutrophil # 7.96 X10^3/uL (2.7-7.7); Neutrophil % 70.1 % (47-70); Platelet Count 259 K/mm3 (150-450); RBC Distribution Width CV 13.7 % (11.6-14.6); RBC Distribution Width SD 44.7 fl (35.1-43.9); Red Blood Count 4.15 M/mm3 (4.2-5.4); White Blood Count 11.4 K/mm3 (4.4-11.0)
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
[2020-02-23 07:41] LABS: Kleihauer-Betke Negative
== END 2020-02-21 21:10 | disposition home or self-care (01) ==
PROVIDERS: PCP Nurse Practitioner Primary Care; Visit Provider Obstetrics & Gynecology
DX: O36.8120 Decreased fetal movements, second trimester, not applicable or unspecified (principal); O44.12 Complete placenta previa with hemorrhage, second trimester; O26.892 Other specified pregnancy related conditions, second trimester; R10.2 Pelvic and perineal pain; O99.412 Diseases of the circulatory system complicating pregnancy, second trimester; I49.3 Ventricular premature depolarization; Z3A.23 23 weeks gestation of pregnancy; Z88.5 Allergy status to narcotic agent; Z88.8 Allergy status to other drugs, medicaments and biological substances; Z28.21 Immunization not carried out because of patient refusal; Z87.59 Personal history of other complications of pregnancy, childbirth and the puerperium
CPT/HCPCS: 59025; 59050; 85025; 85384; 85460; 99218; G0378

== ENCOUNTER 2020-02-22 22:44 | Outpatient (CLI) | payer MEDICAID, SELFPAY ==
[2020-02-21 17:31] VITALS: BMI 31.4
[2020-02-22 22:58] VITALS: BP 134/75; PULSE 116; TEMP 37
[2020-02-22 22:59] VITALS: PULSE 112; O2SAT 99
[2020-02-22 23:04] VITALS: PULSE 116; O2SAT 99
[2020-02-22 23:09] VITALS: PULSE 108; O2SAT 97
[2020-02-22 23:14] VITALS: BMI 33.3
[2020-02-22 23:50] LABS: Absolute Lymphocyte Count 2.09 X10^3/uL (0.83-4.51); Absolute Neutrophil Count 8.8 X10^3/uL (2.0-7.7); Basophil# 0.05 X10^3/uL; Basophil% 0.4 % (0-1); Eosinophil# 0.18 X10^3/uL; Eosinophils% 1.5 % (0-5); Hemoglobin 11.6 g/dL (12.0-15.0); Lymphocyte # 2.09 X10^3/ul (4.0); Lymphocyte % 17.1 % (19-41); Mean Corp Hgb Conc 32.2 g/dL (32-36); Mean Corpuscular Hgb 28.4 pg (27.0-32.0); Mean Corpuscular Volume 88.2 fL (81-99); Mean Platelet Vol. 9.2 fl (6.2-12.0); Monocyte# 0.95 X10^3/uL; Monocyte% 7.8 % (0-10); NRBC Flagged by Analyzer 0 % (0-5); Neutrophil # 8.77 X10^3/uL (2.7-7.7); Neutrophil % 71.6 % (47-70); Platelet Count 251 K/mm3 (150-450); RBC Distribution Width CV 13.4 % (11.6-14.6); RBC Distribution Width SD 43.6 fl (35.1-43.9); Red Blood Count 4.08 M/mm3 (4.2-5.4); White Blood Count 12.2 K/mm3 (4.4-11.0)
[2020-02-22 23:53] LABS: Fibrinogen 449 mg/dl (203-444)
[2020-02-23 04:58] VITALS: BP 127/83; PULSE 103
--- NOTE | 2020-02-23 11:38 | OB.TRI.PN_ITS ---
Progress Notes Date of Service: 02/22/20 Progress Note: patient seen for cramping and spotting- has been present for most of her , known previa. still previable. saw mfm last week and recommended exp management with nl cervical lenght. reassuring fht and cbc fibrinogen today. recommend fu in office Laboratory Studies: Laboratory Tests 02/22/20 02/22/20 Range/Units 23:35 23:35 WBC 12.2 H (4.4-11.0) K/mm3 RBC 4.08 L (4.2-5.4) M/mm3 Hgb 11.6 L (12.0-15.0) g/dL Hct 36.0 L (37-47) % MCV 88.2 (81-99) fL MCH 28.4 (27.0-32.0) pg MCHC 32.2 (32-36) g/dL RDW Std Deviation 43.6 (35.1-43.9) fl RDW Coeff of Johnny 13.4 (11.6-14.6) % Plt Count 251 (150-450) K/mm3 MPV 9.2 (6.2-12.0) fl Immature Gran % (Auto) 1.600 H (0.0-0.9) % Neut % (Auto) 71.6 H (47-70) % Lymph % (Auto) 17.1 L (19-41) % [place] % (Auto) 7.8 (0-10) % Eos % (Auto) 1.5 (0-5) % Baso % (Auto) 0.4 (0-1) % Absolute Neuts (auto) 8.8 H (2.0-7.7) X10^3/uL Absolute Lymphs (auto) 2.09 (0.83-4.51) X10^3/uL Nucleated RBC % 0 (0-5) % Fibrinogen 449 H (203-444) mg/dl Multi Select Codes - Urinary/Genital Urinary/Genital CPT Codes: No Charge - report visit
== END 2020-02-23 00:20 | disposition other institution (70) ==
LOC: WPOUT 22:55 → WP 22:56
PROVIDERS: PCP Nurse Practitioner Primary Care; Visit Provider Obstetrics & Gynecology
DX: O44.00 Complete placenta previa NOS or without hemorrhage, unspecified trimester (principal); Z3A.00 Weeks of gestation of pregnancy not specified
CPT/HCPCS: 36415; 59025; 59050; 85025; 85384; 99218; G0378

== ENCOUNTER 2020-02-25 10:37 | Outpatient (CLI) | payer MEDICAID, SELFPAY ==
[2020-02-25] VITALS (45 sets, daily range): BP systolic 113–133; BP diastolic 60–90; PULSE 92–128; RESP 18; TEMP 36.6–37.2; O2SAT 91–100; BMI 32.9
[2020-02-25 11:17] LABS: Absolute Lymphocyte Count 1.55 X10^3/uL (0.83-4.51); Basophil# 0.05 X10^3/uL; Basophil% 0.4 % (0-1); Eosinophil# 0.17 X10^3/uL; Eosinophils% 1.4 % (0-5); Hematocrit 37.3 % (37-47); Hemoglobin 12.1 g/dL (12.0-15.0); Lymphocyte # 1.55 X10^3/ul (4.0); Lymphocyte % 12.9 % (19-41); Mean Corp Hgb Conc 32.4 g/dL (32-36); Mean Corpuscular Hgb 28.8 pg (27.0-32.0); Mean Corpuscular Volume 88.8 fL (81-99); Mean Platelet Vol. 9.3 fl (6.2-12.0); Monocyte# 1.05 X10^3/uL; Monocyte% 8.8 % (0-10); NRBC Flagged by Analyzer 0 % (0-5); Neutrophil # 9.04 X10^3/uL (2.7-7.7); Neutrophil % 75.6 % (47-70); Platelet Count 235 K/mm3 (150-450); RBC Distribution Width CV 13.6 % (11.6-14.6); RBC Distribution Width SD 43.9 fl (35.1-43.9)
[2020-02-25 11:58] LABS: Prothrombin Time (Protime)PT. 12.6 SECONDS (11.7-14.9)
[2020-02-25 11:59] LABS: Fibrinogen 541 mg/dl (203-444)
[2020-02-25 12:06] LABS: Partial Thromboplast Time 27.7 Seconds (24.1-36.2)
[2020-02-25] MEDS: Lactated Ringers 1,000 ML 15 ML IV (12:55)
[2020-02-25] MEDS: Magnesium Sulfate 4gm/100mL 4 GM/100 ML IV.SOLN. IV (13:07)
[2020-02-25] MEDS: Magnesium Sulfate 4gm/100mL 2 GM/50 ML IV.SOLN. IV (13:27)
[2020-02-25] MEDS: Magnesium Sulfate 20 GM/500 ML BAG IV (13:39)
[2020-02-25] MEDS: Betamethasone/Betamethasone 30 MG/5 ML Vial 12 MG IM (13:40)
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
[2020-02-25] MEDS: NIFEdipine 10 MG Capsule 20 MG PO (15:11)
== END 2020-02-25 15:55 | disposition short-term general hospital (02) ==
LOC: WPOUT 10:39 → WP 02-28 09:43
PROVIDERS: PCP Nurse Practitioner Primary Care; Visit Provider Obstetrics & Gynecology
DX: O44.12 Complete placenta previa with hemorrhage, second trimester (principal); Z3A.24 24 weeks gestation of pregnancy
CPT/HCPCS: 96365; 96366; 36415; 59025; 59050; 85025; 85384; 85610; 85730; 96372; 99218; J7120; G0378; J0702

== ENCOUNTER → 2022-01-24 | Outpatient (CLI) | payer MEDICAID, SELFPAY ==
[2022-02-02 14:36] LABS: HPV APTIMA, High Risk Negative (Negative)
== END | disposition home or self-care (01) ==
LOC: LABSPEC 14:29
PROVIDERS: PCP Nurse Practitioner Primary Care; Referring Provider Obstetrics & Gynecology; Visit Provider Obstetrics & Gynecology
DX: Z12.4 Encounter for screening for malignant neoplasm of cervix (principal)
CPT/HCPCS: 87624; 88175; G0145

== ENCOUNTER → 2023-02-12 | Outpatient (CLI) | payer MEDICAID, SELFPAY ==
[2023-02-12 17:13] LABS: Absolute Lymphocyte Count 2.66 X10^3/uL (0.83-4.51); Absolute Neutrophil Count 4.1 X10^3/uL (2.0-7.7); Basophil# 0.07 X10^3/uL; Basophil% 0.9 % (0-1); Eosinophil# 0.19 X10^3/uL; Eosinophils% 2.5 % (0-5); Hematocrit 41.9 % (37-47); Hemoglobin 13.3 g/dL (12.0-15.0); Lymphocyte # 2.66 X10^3/ul (0.83-4.51); Lymphocyte % 35.3 % (19-41); Mean Corp Hgb Conc 31.7 g/dL (32-36); Mean Corpuscular Hgb 28.4 pg (27.0-32.0); Mean Corpuscular Volume 89.3 fL (81-99); Mean Platelet Vol. 9.5 fl (6.2-12.0); Monocyte# 0.54 X10^3/uL; Monocyte% 7.2 % (0-10); NRBC Flagged by Analyzer 0 % (0-5); Neutrophil # 4.05 X10^3/uL (2.7-7.7); Neutrophil % 53.8 % (47-70); Platelet Count 246 K/mm3 (150-450); RBC Distribution Width CV 13.2 % (11.6-14.6); RBC Distribution Width SD 43.3 fl (35.1-43.9); Red Blood Count 4.69 M/mm3 (4.2-5.4); White Blood Count 7.5 K/mm3 (4.4-11.0)
[2023-02-12 17:53] LABS: Hemoglobin A1c 5.4 % (3.8-5.6)
[2023-02-12 18:11] LABS: Thyroid Stim Hormone (TSH) 1.46 uIU/mL (0.358-3.74)
[2023-02-12 18:18] LABS: Vitamin B12 308 pg/mL (211-911); Vitamin D,25 Hydroxy 29.1 ng/mL
== END | disposition home or self-care (01) ==
LOC: LAB 16:40
PROVIDERS: PCP Internal Medicine; Referring Provider Obstetrics & Gynecology; Visit Provider Obstetrics & Gynecology
DX: N93.9 Abnormal uterine and vaginal bleeding, unspecified (principal); R53.83 Other fatigue; R73.03 Prediabetes; Z13.21 Encounter for screening for nutritional disorder
CPT/HCPCS: 36415; 82306; 82607; 83036; 84443; 85025

== ENCOUNTER 2023-03-21 17:20 | Emergency (ER) | payer MEDICAID, SELFPAY ==
[2023-03-21 17:22] VITALS: BP 133/70; PULSE 74; RESP 14; TEMP 36.7; O2SAT 98; BMI 34.6
[2023-03-21 18:32] LABS: Absolute Lymphocyte Count 2.91 X10^3/uL (0.83-4.51); Absolute Neutrophil Count 3.2 X10^3/uL (2.0-7.7); Basophil# 0.07 X10^3/uL; Eosinophil# 0.25 X10^3/uL; Eosinophils% 3.5 % (0-5); Hematocrit 43.8 % (37-47); Hemoglobin 13.9 g/dL (12.0-15.0); Lymphocyte # 2.91 X10^3/ul (0.83-4.51); Lymphocyte % 40.8 % (19-41); Mean Corp Hgb Conc 31.7 g/dL (32-36); Mean Corpuscular Hgb 28.3 pg (27.0-32.0); Mean Corpuscular Volume 89.2 fL (81-99); Mean Platelet Vol. 9.2 fl (6.2-12.0); Monocyte# 0.64 X10^3/uL; NRBC Flagged by Analyzer 0 % (0-5); Neutrophil # 3.24 X10^3/uL (2.7-7.7); Neutrophil % 45.3 % (47-70); Platelet Count 234 K/mm3 (150-450); RBC Distribution Width CV 13.3 % (11.6-14.6); RBC Distribution Width SD 43.8 fl (35.1-43.9); Red Blood Count 4.91 M/mm3 (4.2-5.4); White Blood Count 7.1 K/mm3 (4.4-11.0)
[2023-03-21 18:44] LABS: Internal QC Validated? YES +Cl - CLEAR BKGD; Pregnancy, Serum, hCG Quali. NEGATIVE Negative; Record Kit Lot#, Serum Preg. 667200
[2023-03-21 18:46] LABS: Mucous, Urine 0 SEEN /hpf (<or=2+); Red Blood Cells-Urine 0 SEEN /hpf (0-5)
[2023-03-21 18:50] LABS: Color, Urine Yellow (Yellow); Glucose, Dipstick Normal (Normal); Ketone-Dipstick 5 mg/dl (Negative); Leukocyte Esterase-Dipstick Negative /ul (Negative); Nitrite-Dipstick Negative (Negative); Occult Blood-Urine Negative /ul (Negative); Protein-Dipstick 15 mg/dl (Negative); Urine Bilirubin Dipstick Negative (Negative); Urine Clarity Clear (Clear); Urine Urobilinogen Normal (Normal); Urine pH 6.5 (5.0 - 8.0)
[2023-03-21 18:50] LABS: AST(SGOT) 86 U/L (15-37); Alanine Aminotransfer ALT/SGPT 190 U/L (13-56); Albumin, Serum 3.9 g/dL (3.2-5.0); Alkaline Phosphatase 202 U/L (45-117); Anion Gap 2 (5-15); BUN 13 mg/dL (7-18); BUN/Creat Ratio 15.4 RATIO (10-20); Calcium,Total 9.1 mg/dL (8.5-10.1); Chloride 112 mmol/L (98-107); Creatinine, Serum 0.84 mg/dL (0.55-1.02); EST Glomerular Filtration Rate 81 mL/min (>60); Est Glom Filt Rate - Afr Amer 97 mL/min (>60); Estimated Creatinine Clearance 69.19 ml/min; Glucose 124 mg/dL (74-106); Lipase 50 U/L (13-75); Potassium 3.4 mmol/L (3.5-5.1); Protein, Total 7.9 g/dL (6.4-8.2); Sodium Level 141 mmol/L (136-145)
[2023-03-21 18:56] LABS: Bacteria 2+ /hpf (None Seen); Squamous Epithelial Cells - UA 0-5 SEEN /hpf (5-10); White Blood Cells 0-5 SEEN /hpf (0-5)
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
[2023-03-21 20:00] VITALS: RESP 18
[2023-03-21] MEDS: Dicyclomine 10 MG Capsule 20 MG PO (20:02)
[2023-03-21] MEDS: Ondansetron 4 MG/2 ML Vial IV (20:02)
--- NOTE | 2023-03-21 21:29 | US_ITS ---
INDICATION: abdominal pain EXAMINATION: Ultrasound US Abdomen RUQ (limited) TECHNIQUE: Santillan scale and color doppler imaging was performed of the right upper quadrant. COMPARISON: 01/28/2020 CT. FINDINGS: LIVER: Diffuse increased echogenicity. Hepatomegaly with the right lobe length measuring 17.6 cm. No evidence of a mass. No intrahepatic duct dilation. GALLBLADDER: Status post cholecystectomy. COMMON BILE DUCT: Normal measuring 4 mm in diameter. PANCREAS: Visualized portions of the pancreas appear normal. RIGHT KIDNEY: Unremarkable. FREE FLUID: No free fluid in the right upper quadrant. US/Gallbladder IMPRESSION: 1. No acute abnormality in the right upper quadrant. 2. Fatty infiltration of the liver and hepatomegaly. Electronically Signed: Mark Nix DO at 0:12 EST ,
== END 2023-03-22 02:10 | disposition home or self-care (01) ==
PROVIDERS: Emergency Provider Student in an Organized Health Care Education/Training Program; PCP Internal Medicine; Visit Provider Student in an Organized Health Care Education/Training Program
DX: R10.9 Unspecified abdominal pain (principal); R74.01 Elevation of levels of liver transaminase levels
CPT/HCPCS: 76705; 80053; 81001; 83690; 84703; 85025; 96374; 99284; J2405

== ENCOUNTER 2023-03-27 17:15 | Emergency (ER) | payer MEDICAID, SELFPAY ==
[2023-03-27 17:15] VITALS: BP 144/77; PULSE 98; RESP 17; TEMP 36.4; O2SAT 98; BMI 35.0
[2023-03-27 20:28] LABS: Absolute Lymphocyte Count 2.85 X10^3/uL (0.83-4.51); Absolute Neutrophil Count 3.6 X10^3/uL (2.0-7.7); Basophil# 0.06 X10^3/uL; Basophil% 0.8 % (0-1); Eosinophil# 0.19 X10^3/uL; Eosinophils% 2.6 % (0-5); Hematocrit 41.7 % (37-47); Hemoglobin 13.5 g/dL (12.0-15.0); Lymphocyte # 2.85 X10^3/ul (0.83-4.51); Lymphocyte % 38.6 % (19-41); Mean Corp Hgb Conc 32.4 g/dL (32-36); Mean Corpuscular Hgb 28.5 pg (27.0-32.0); Mean Corpuscular Volume 88.2 fL (81-99); Mean Platelet Vol. 9.4 fl (6.2-12.0); Monocyte# 0.69 X10^3/uL; Monocyte% 9.3 % (0-10); NRBC Flagged by Analyzer 0 % (0-5); Neutrophil # 3.58 X10^3/uL (2.7-7.7); Neutrophil % 48.4 % (47-70); Platelet Count 231 K/mm3 (150-450); RBC Distribution Width CV 13.1 % (11.6-14.6); RBC Distribution Width SD 42.2 fl (35.1-43.9); Red Blood Count 4.73 M/mm3 (4.2-5.4); White Blood Count 7.4 K/mm3 (4.4-11.0)
[2023-03-27 20:57] LABS: AST(SGOT) 72 U/L (15-37); Alanine Aminotransfer ALT/SGPT 172 U/L (13-56); Albumin, Serum 3.6 g/dL (3.2-5.0); Alkaline Phosphatase 184 U/L (45-117); Anion Gap 5 (5-15); BUN 15 mg/dL (7-18); BUN/Creat Ratio 16.9 RATIO (10-20); Bilirubin, Direct 0.08 mg/dL (0.00-0.30); Calcium,Total 8.3 mg/dL (8.5-10.1); Chloride 113 mmol/L (98-107); Creatinine, Serum 0.89 mg/dL (0.55-1.02); EST Glomerular Filtration Rate 76 mL/min (>60); Est Glom Filt Rate - Afr Amer 92 mL/min (>60); Estimated Creatinine Clearance 65.31 ml/min; Globulin 3.7 g/dL (2.2-4.2); Glucose 132 mg/dL (74-106); Lipase 46 U/L (13-75); Potassium 3.6 mmol/L (3.5-5.1); Protein, Total 7.3 g/dL (6.4-8.2); Sodium Level 139 mmol/L (136-145)
--- NOTE | 2023-03-27 22:10 | CT_ITS ---
INDICATION: Pain EXAMINATION: CT Head or Brain W/O Contrast Injection TECHNIQUE: Multiple axial images were obtained of the head without intravenous contrast. A radiation dose optimization technique was used for this scan. IV Contrast dosage and agent: None. COMPARISON: None FINDINGS: BRAIN PARENCHYMA: No intra- or extra-axial hemorrhage. No evidence of acute major territorial infarct. No intracranial mass or mass effect. There is preservation of the pyle/white matter interface. Posterior fossa structures are unremarkable. CSF SPACES: Appropriate for age. No hydrocephalus. Basal cisterns are patent. CALVARIUM, SKULL BASE, PARANASAL SINUSES AND MASTOID AIR CELLS: Calvarium is intact. No acute findings within imaged paranasal sinuses. Mastoid air cells are well-pneumatized. ORBITS: No acute findings, as visualized. CT/Brain/Head without Contrast IMPRESSION: No evidence of acute intracranial abnormality. Electronically Signed: Joey Gamez MD at 22:48 EST ,
[2023-03-27] MEDS: Metoclopramide 10 MG/2 ML Vial IV (22:38)
[2023-03-27] MEDS: DiphenhydrAMINE 50 MG/ML Syringe 25 MG IV (22:38)
[2023-03-27] MEDS: 0.9% Normal Saline (1000mL) 1,000 ML 999 ML IV (22:38)
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
[2023-03-27 23:55] VITALS: BP 121/77; PULSE 65; RESP 16; O2SAT 99
== END 2023-03-27 23:57 | disposition home or self-care (01) ==
PROVIDERS: Emergency Provider Student in an Organized Health Care Education/Training Program; PCP Internal Medicine; Visit Provider Student in an Organized Health Care Education/Training Program
DX: R51.9 Headache, unspecified (principal)
CPT/HCPCS: 70450; 80048; 80076; 83690; 85025; 96374; 96375; 99283; J7030; A4216

== ENCOUNTER → 2023-08-12 | Outpatient (CLI) | payer MEDICAID, SELFPAY | END | disposition home or self-care (01) | LOC: LABSPEC 15:03 | PROVIDERS: PCP Internal Medicine; Referring Provider Nurse Practitioner Women's Health; Visit Provider Nurse Practitioner Women's Health | DX: N89.8 Other specified noninflammatory disorders of vagina (principal) | CPT/HCPCS: 87070; 87205 ==

== ENCOUNTER → 2023-11-06 | Outpatient (CLI) | payer MEDICAID, SELFPAY ==
--- NOTE | 2023-11-06 14:42 | US_ITS ---
STUDY: ULTRASOUND OF THE FEMALE PELVIS - COMPLETE REASON FOR EXAM: Female, 38 years old. Infertility, abdominal pain LMP: October 28, 2023. TECHNIQUE: Transabdominal and Transvaginal TECHNICAL QUALITY: Adequate. COMPARISON: Comparison is made with prior study March 12, 2017. FINDINGS: The uterus is retroverted and is in a midline position. The uterus measures 7.5 cm x 5.6 cm x 3.9 cm. There is a Nabothian cyst of the cervix. The endometrium measures 4.2 mm in thickness, and is hyperechoic. There is no demonstrated endometrial mass. There is no demonstrated myometrial mass. I.U.D. - The patient does not have an I.U.D. The right ovary is visualized. The right ovary measures 3.2 cm x 1.7 cm x 1.9 cm. Small follicles are seen within the right ovary. There is no visualized right adnexal mass or complex lesion. There is normal arterial and normal venous vascularity. The left ovary is visualized. The left ovary measures 3.1 cm x 2.7 cm x 1.9 cm. Several follicles are seen. There is a dominant follicle measuring 1.5 cm x 1.6 cm x 1.1 cm. There is no visualized left adnexal mass or complex lesion. There is normal arterial and normal venous vascularity. There is no fluid in the cul-de-sac. The pre void volume of the bladder was 500 ml. US/Pelvic w/ Transvaginal IMPRESSION: Follicles are seen in both ovaries. Electronically Signed: Carlo Moreno MD at 8:29 EDT ,
== END | disposition home or self-care (01) ==
LOC: OPUS 14:41
PROVIDERS: PCP Internal Medicine; Referring Provider Obstetrics & Gynecology; Visit Provider Obstetrics & Gynecology
DX: R10.9 Unspecified abdominal pain (principal); Z31.69 Encounter for other general counseling and advice on procreation
CPT/HCPCS: 76830; 76856

== ENCOUNTER 2023-12-10 14:54 | Emergency (ER) | payer MEDICAID, SELFPAY ==
[2023-12-10 14:55] VITALS: BP 136/95; PULSE 83; RESP 16; TEMP 36.1; O2SAT 97; BMI 33.3
--- NOTE | 2023-12-10 15:53 | EKG12_ITS ---
Test Reason : Blood Pressure : / mmHG Vent. Rate : 071 BPM Atrial Rate : 071 BPM P-R Int : 156 ms QRS Dur : 084 ms QT Int : 380 ms P-R-T Axes : -12 059 005 degrees QTc Int : 412 ms Normal sinus rhythm Normal ECG Confirmed by LEE HEALY, SENAIT ([id number]), news video editor KEVIN DANGELO ([id number]) on 12/12/2023 6:48:42 AM Referred By: Confirmed By:SIL HOWARD MD
--- NOTE | 2023-12-10 15:55 | RAD_ITS ---
STUDY: X-RAY - LUMBAR SPINE REASON FOR EXAM: Female, 38 years old. pain TECHNIQUE: 5 view(s) of the lumbar spine were obtained. COMPARISON: None FINDINGS: Normal lumbar lordosis. There is no substantial scoliosis. There is a normal alignment of the vertebrae. Normal vertebral bodies and endplates. Normal disc space heights. There is no demonstrated fracture. The soft tissue structures are unremarkable. RAD/L/S Spine Min 4 Views IMPRESSION: Normal x-ray examination of the lumbar spine. Electronically Signed: Aston Manzo MD at 16:40 EDT ,
[2023-12-10 16:04] LABS: Mucous, Urine 0 SEEN /hpf (<or=2+); Red Blood Cells-Urine 0 SEEN /hpf (0-5); White Blood Cells 0 SEEN /hpf (0-5)
[2023-12-10 16:07] LABS: Absolute Lymphocyte Count 2.04 X10^3/uL (0.83-4.51); Absolute Neutrophil Count 4.1 X10^3/uL (2.0-7.7); Basophil# 0.04 X10^3/uL; Basophil% 0.6 % (0-1); Color, Urine Straw (Yellow); Eosinophils% 1.5 % (0-5); Glucose, Dipstick 1000 mg/dl (Normal); Hematocrit 46.1 % (37-47); Hemoglobin 14.9 g/dL (12.0-15.0); Ketone-Dipstick Negative (Negative); Leukocyte Esterase-Dipstick Negative /ul (Negative); Lymphocyte # 2.04 X10^3/ul (0.83-4.51); Lymphocyte % 30.4 % (19-41); Mean Corp Hgb Conc 32.3 g/dL (32-36); Mean Corpuscular Hgb 27.6 pg (27.0-32.0); Mean Corpuscular Volume 85.5 fL (81-99); Mean Platelet Vol. 10.4 fl (6.2-12.0); Monocyte# 0.45 X10^3/uL; Monocyte% 6.7 % (0-10); NRBC Flagged by Analyzer 0 % (0-5); Neutrophil # 4.05 X10^3/uL (2.7-7.7); Neutrophil % 60.5 % (47-70); Nitrite-Dipstick Negative (Negative); Occult Blood-Urine Negative /ul (Negative); Platelet Count 182 K/mm3 (150-450); Protein-Dipstick Negative (Negative); RBC Distribution Width CV 12.5 % (11.6-14.6); RBC Distribution Width SD 38.5 fl (35.1-43.9); Red Blood Count 5.39 M/mm3 (4.2-5.4); Urine Bilirubin Dipstick Negative (Negative); Urine Clarity Clear (Clear); Urine Urobilinogen Normal (Normal); White Blood Count 6.7 K/mm3 (4.4-11.0)
[2023-12-10] MEDS: Morphine 4 MG/ML Syringe IV (16:09)
[2023-12-10] MEDS: 0.9% Normal Saline (1000mL) 1,000 ML 999 ML IV ×2 (16:10→17:43)
[2023-12-10] MEDS: Ondansetron 4 MG/2 ML Vial IV (16:10)
--- NOTE | 2023-12-10 16:10 | RAD_ITS ---
STUDY: X-RAY CHEST REASON FOR EXAM: Female, 38 years old. chest pressure TECHNIQUE: Single AP portable view of the chest. COMPARISON: 06/02/2017. FINDINGS: The lungs are clear and expanded. There is no demonstrated pleural abnormality. Normal size heart. Normal mediastinum and shruthi. Normal visualized pulmonary arteries. Normal visualized aortic arch and descending thoracic aorta. Normal visualized thoracic spine. Normal visualized ribs, clavicles, and shoulders. There is no demonstrated abnormality of the visualized soft tissue structures of the upper abdomen. RAD/Chest PA and Lateral IMPRESSION: Normal x-ray examination of the chest. Electronically Signed: Aston Manzo MD at 16:39 EDT ,
[2023-12-10 16:22] LABS: Bacteria 1+ /hpf (None Seen); Internal QC Validated? YES +Cl - CLEAR BKGD; Pregnancy, Urine Negative Negative; Squamous Epithelial Cells - UA 0-5 SEEN /hpf (5-10)
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
[2023-12-10 16:32] LABS: Blood Gas Specimen Type VEN; O2 Delivery Device Not entered; SITE Not entered; VBG BASE EXCESS -5 mmol/L (-1.0-3.5); VBG Bicarbonate 21 mmol/L (22-26); VBG PO2 41 mmHg (25-40); VBG SO2 75 % (50-70); VBG TCO2 22 mmol/L (23-33); VBG pCO2 36.5 mmHg (41-51); VBG pH 7.36 (7.32-7.42)
--- NOTE | 2023-12-10 16:36 | ED.RN ---
CRITICAL GLUCOSE OF 620. DR. GONZALEZ INFORMED
[2023-12-10 16:38] LABS: AST(SGOT) 129 U/L (15-37); Alanine Aminotransfer ALT/SGPT 241 U/L (13-56); Albumin, Serum 3.8 g/dL (3.2-5.0); Alkaline Phosphatase 287 U/L (45-117); Anion Gap 9 (5-15); BUN 11 mg/dL (7-18); BUN/Creat Ratio 10.2 RATIO (10-20); Calcium,Total 9.2 mg/dL (8.5-10.1); Chloride 98 mmol/L (98-107); Creatinine, Serum 1.08 mg/dL (0.55-1.02); EST Glomerular Filtration Rate 60 mL/min (>60); Est Glom Filt Rate - Afr Amer 73 mL/min (>60); Globulin 3.9 g/dL (2.2-4.2); Glucose 620 mg/dL (74-106); Potassium 4.1 mmol/L (3.5-5.1); Protein, Total 7.7 g/dL (6.4-8.2); Sodium Level 129 mmol/L (136-145); Troponin-I HS < 3 pg/mL (3.0-54.0)
--- NOTE | 2023-12-10 17:57 | US_ITS ---
STUDY: ABDOMINAL ULTRASOUND - RIGHT UPPER QUADRANT REASON FOR VISIT: Female, 38 years old pain, transaminitis . TECHNIQUE: Ultrasound evaluation of the right upper quadrant was performed with real-time and static pyle-scale imaging. TECHNICAL QUALITY: Adequate. COMPARISON: 03/21/2023. FINDINGS: Liver: The liver measures 19.3 cm. There is increased echogenicity consistent with fatty infiltration. The bile ducts are within normal limits. There is hepatic color flow. The direction of portal flow is hepatopetal. There is no demonstrated mass lesion. Gallbladder: The patient is status post cholecystectomy. Common Bile Duct (C.B.D.): The common bile duct measures 5 mm. Pancreas: Normal size of the head, body and tail of the pancreas. There is normal echogenicity of the pancreas. There is no demonstrated pancreatic mass or cyst. Right Kidney: Normal size of the right kidney. The right kidney measures 12.3 cm. Normal renal cortex. The right cortex measures 1.7 cm. There is no demonstrated renal mass or cyst. There is no right hydronephrosis. US/Liver IMPRESSION: Hepatomegaly. Fatty liver. Otherwise negative. Electronically Signed: Aston Manzo MD at 19:28 EDT ,
[2023-12-10] MEDS: diazePAM 5 MG Tablet 2.5 MG PO (18:07)
[2023-12-10 18:17] LABS: Lipase 65 U/L (13-75)
[2023-12-10 18:58] VITALS: BP 101/90; PULSE 80; RESP 16; O2SAT 98
[2023-12-10] MEDS: HYDROmorphone 0.5 MG/0.5 ML SYRINGE IV (19:14)
[2023-12-10 20:02] LABS: CPK Total, Creatine Kinase 44 U/L (26-192)
[2023-12-10 20:31] LABS: Bedside Glucose 250 mg/dL (74-106)
[2023-12-10] MEDS: Ketorolac 15 MG/ML Vial IV (20:34)
[2023-12-10] MEDS: Insulin Lispro 100 UNIT/ML INSULN.PEN SC (21:12)
[2023-12-10 21:15] VITALS: BP 126/75; PULSE 79; RESP 16; TEMP 36.6; O2SAT 99
== END 2023-12-10 21:49 | disposition home or self-care (01) ==
PROVIDERS: Emergency Provider Emergency Medicine; PCP Internal Medicine; Visit Provider Emergency Medicine
DX: M54.42 Lumbago with sciatica, left side (principal); E11.65 Type 2 diabetes mellitus with hyperglycemia; Z79.4 Long term (current) use of insulin; R94.5 Abnormal results of liver function studies; R10.11 Right upper quadrant pain; R07.9 Chest pain, unspecified
CPT/HCPCS: 71046; 72110; 76705; 80053; 81001; 81025; 82009; 82550; 82803; 82962; 83690; 84484; 85025; 93005; 96361; 96374; 96375; 99283; J7030; A4216; J2405

== ENCOUNTER → 2024-01-07 | Outpatient (CLI) | payer MEDICAID, SELFPAY ==
--- NOTE | 2024-01-07 13:37 | NEURO ---
NCS and/or EMG Patient Report Ordering Doctor: Prabhakar Dempsey DATE OF SERVICE: 01/07/24 Samantha presents with complaints of left leg pain with numbness and tingling. She reports chronic low back pain. Electrodiagnostic findings: Left peroneal motor nerve demonstrates normal distal latency, amplitude and conduction velocity. Normal left tibial motor response. Normal tibial and peroneal F?waves. Sensory responses are within normal limits in the left lower limb. H-reflex is normal bilaterally. Needle EMG testing was performed in the left lower limb. All muscles tested showed no evidence of denervation with normal motor unit action potentials. Electrodiagnostic impression: This is a normal electrodiagnostic study in the left lower limb. There is no electrodiagnostic evidence for peripheral neuropathy or lumbosacral radiculopathy. Multi Select Codes Neurology Neurology Interp Codes: 57031-49 Musc test done w/n test comp (interp) and 27513-99 Nrv cndj test 7-8 studies (interp)
== END | disposition home or self-care (01) ==
LOC: PSN 12:08
PROVIDERS: PCP Internal Medicine; Referring Provider Orthopaedic Surgery Sports Medicine; Visit Provider Orthopaedic Surgery Sports Medicine
DX: M54.32 Sciatica, left side (principal)
CPT/HCPCS: 95886; 95910

== ENCOUNTER → 2024-01-08 | Outpatient (CLI) | payer MEDICAID, SELFPAY ==
--- NOTE | 2024-01-08 11:18 | MRI_ITS ---
INDICATION: left L spine radicu -- LBP AND INTO BOTH LEGS WITH NUMB AND TINGLING X 3MOS EXAMINATION: MRI - MR Spine Lumbar W/O Contrast TECHNIQUE: Multiplanar and multisequence MR images of the lumbar spine without contrast. IV Contrast Dosage and Agent: None. COMPARISON: Lumbar spine radiograph December 10, 2023. FINDINGS: VERTEBRAE: Normal bone marrow signal. No fracture or compression deformity. No aggressive osseous lesion. VERTEBRAL ALIGNMENT: No spondylolisthesis. There is preservation of the normal lumbar lordosis. CORD: Conus medullaris at L1. Imaged portion of the cord is normal signal. Cauda equina layer dependently. L1/L2: Normal disc height and morphology. Normal spinal canal, lateral recesses and neuroforamina. L2/L3: Normal disc height and morphology. Normal spinal canal, lateral recesses and neuroforamina. L3/L4: Normal disc height and morphology. Normal spinal canal, lateral recesses and neuroforamina. L4/L5: Normal disc height and morphology. Normal spinal canal, lateral recesses and neuroforamina. L5/S1: Disc desiccation with small broad-based posterior disc protrusion extending 3 mm posterior to vertebral body with minimal spinal canal and bilateral neural foraminal narrowing.. SOFT TISSUES: Multiple left ovarian follicles up to 2 cm in size.. MRI/Spine Lumbar (Routine) IMPRESSION: Small L5-S1 posterior disc protrusion with minimal spinal canal and bilateral neural foraminal stenosis Partially seen dominant 2 cm left ovarian follicle. Electronically Signed: Miky Milner MD at 8:40 EDT ,
== END | disposition home or self-care (01) ==
PROVIDERS: PCP Internal Medicine; Referring Provider Orthopaedic Surgery Sports Medicine; Visit Provider Orthopaedic Surgery Sports Medicine
DX: M54.32 Sciatica, left side (principal)
CPT/HCPCS: 72148

== ENCOUNTER 2024-03-26 12:00 | Outpatient (RCR) | payer MEDICAID, SELFPAY ==
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
--- NOTE | 2024-03-26 12:47 | HP.PTDCSUM ---
Discharge Summary D/C summary: It has been my pleasure to treat ANAHI BERGERON referred by Dr. Prabhakar Dempsey MD, with the diagnosis of SCIATICA ,LEFT for a total of 12 visit(s). Discharge Date: 03/26/24 Please see the following information for a summary of their discharge status. Subjective Subjective: Doing better Pain Right Lower Extremity: Pain Intensity (Out of 10): N/A Left Back: Pain Intensity (Out of 10): 6 LBP: Pain Intensity (Out of 10): 6 LLE: Pain Intensity (Out of 10): 6 Overall Improvement % Improvement: 60 Objective Objective/Function: POSTURE: mild forward posture PALPATION: tender LS /SI GAIT:reciprocal pattern SYMMETRIES: align FLEXABILITY: mod tight hamstrings MMT: quads/hams4/5 ,hip flexion 4/5 ,ankle 4/5 LUMBAR ROM: flexion min loss ,extension min loss ,side glides min loss Goals Goal 1:: Patient to be I with HEP and Aquatic therapy for lumbar Goal Progress: Goal Met Goal 2:: Patient to improve lumbar ROM for function of recovery Goal Progress: Goal Met Goal 3:: Patient to demonstrate 50% improvement with less pain and improved function Goal Progress: Goal Met Goal 4:: Patient to improve back oswestry by 5 points allison improve function Goal Progress: Goal Met Goal 5:: Patient to return to prior level of function without limitations Goal Progress: Progressing Plan Plan: D/C RTD D/C Information d/c sentence: If there are questions or concerns regarding this patient's physical therapy, please feel free to call me at [phone]. Thank you for the referral of this patient. Sincerely, Manoj Caputo, PT, Cert MDT, OCS Balance/Gait/Functional tests Balance/Special Test Scores Oswestry Low Back Score: 5 Improvement % Improvement: 60
== END 2024-03-26 19:00 | disposition home or self-care (01) ==
LOC: PT 12:00
PROVIDERS: PCP Internal Medicine; Referring Provider Orthopaedic Surgery Sports Medicine; Visit Provider Orthopaedic Surgery Sports Medicine
DX: M54.32 Sciatica, left side (principal)
CPT/HCPCS: 97113; 97162; 97530

== ENCOUNTER 2024-04-07 09:45 | Outpatient (RCR) | payer MEDICAID, SELFPAY ==
--- NOTE | 2024-04-07 12:01 | HP.PTEVAL ---
Patient's Visit Information Visit Information Visit Information: ANAHI BERGERON is a 38 year old F referred to Physical Therapy by Dr. Rosas Lopes MD with a diagnosis of LBP secondary to leg length discrepancy. Date of Evaluation: 04/07/24 Physical Therapist: Grant Aguirre, PT, ATC Visit Plan Frequency: 2-3x /Week Duration: 4-6 Weeks Plan: Postural edu, core stab ex's in neutral, B LE strengthening, and HEP Subjective Subjective: Pt reports she has had LBP and B LE pain for several years, really ever since she can remember. Pt notes the past year has progressively worsened until she had to go and see her doctor. Pt reports she is here for PT to see if we can help with her pain and assess her LE's for a leg length discrepancy. Pt reports she has had an MRI in the past which revealed a herniated disc. Pt reports the pain that she has in her LE's is sharp and tingling in nature, and extends down her legs all the way to her toes. Pt reports she has sleep difficulty at this time secondary to pain. Pt reports prolonged walking and standing tend to increase her LE sx's. 6/10 pain while sitting here in the clinic, 10/10 pain at worst (standing for a prolonged period of time and forward bending activity). Pt works at [employer]. Pain LBP: Pain Intensity (Out of 10): 6 Pain Intensity Range: 10 Objective Objective: Neuro: B LE sensation is WNL to light touch. MMT:B LE's are grossly 4/5 throughout ROM: Pt is moderately limited with both flexion and extension. B SB is WNL Repeated movements: Both flexion and extension peripheralize sx's Special testing: No leg length discrepancy this date. Balance/Special Test Scores Lower Extremity Functional Score: 32 Goals Goal 1:: Decrease LBP x 50% to aid with sleep Goal Time Frame: 4-6 Weeks Goal 2:: Increase L/S flex and ext ROM x 1 grade to aid with IADL's Goal Time Frame: 4-6 Weeks Goal 3:: Decrease frequency and intensity of B LE radiculopathy x 50% to aid with sleep Goal Time Frame: 4-6 Weeks Goal 4:: I with HEP Goal Time Frame: 4-6 Weeks Rehabilitation Potential Physical Therapy Diagnosis: Pt has LBP and B LE radiculopathy secondary to Lumbar disc pathology Rehabilitation Potential: Good Anticipated Interventions Patient/Client Instruction: Educate patient on: Condition and Plan of Care For the Purpose of:: To improve self management Therapeutic Exercise to Include: Strength training, Body mechanics, Postural training and Dynamic Lumbar Stabilization For the Purpose of:: To decrease pain, To increase ROM and To improve muscle performance and motor function Text: Thank you for the opportunity to evaluate your patient. For Medicare and Medicare HMO plans, please review the plan of care and approve it. It will need to be FAXED BACK to us at [phone] for Medicare purposes. For Medicare only, by signing this I certify the plan of care. Please let me know if there are questions or concerns regarding this plan of care. Physician Signature: Date:
--- NOTE | 2024-05-28 12:50 | HP.PT.NRP ---
Patient Information Patient Information: ANAHI BERGERON was seen in my office for initial evaluation on 04/07/24. The following Plan of Care was established for this patient: POC Established Initial Frequency: 2-3x /Week Initial Duration: 4-6 Weeks Anticipated Interventions Patient/Client Instruction: Educate patient on: Condition and Plan of Care For the Purpose of:: To improve self management Therapeutic Exercise to Include: Strength training, Body mechanics, Postural training and Dynamic Lumbar Stabilization For the Purpose of:: To decrease pain, To increase ROM and To improve muscle performance and motor function Last Seen Last Seen: This patient was last seen in our office . Pertinent comments regarding their Physical therapy will appear below: Pt has not returned through todays date for 30 days and is discontinued at this time. At this point I will be discontinuing this patient from physical therapy. I would be happy to see this patient again in the future if found appropriate by the physician. Thank you! Grant Aguirre, PT, ATC Balance/Gait/Functional tests Balance/Special Test Scores Lower Extremity Functional Score: 32
== END 2024-04-07 19:00 | disposition home or self-care (01) ==
LOC: PT 09:45
PROVIDERS: PCP Internal Medicine; Referring Provider Orthopaedic Surgery Orthopaedic Surgery of the Spine; Visit Provider Orthopaedic Surgery Orthopaedic Surgery of the Spine
DX: M21.70 Unequal limb length (acquired), unspecified site (principal)
CPT/HCPCS: 97161

== ENCOUNTER → 2024-06-30 | Outpatient (CLI) | payer MEDICAID, SELFPAY ==
[2024-06-30 11:30] LABS: ALB/GLOB Ratio 1.3 RATIO (0.9-2.4); AST(SGOT) 50 U/L (<=31); Alanine Aminotransfer ALT/SGPT 74 U/L (<=34); Albumin, Serum 4.2 g/dL (3.5-5.0); Alkaline Phosphatase 162 U/L (35-104); Anion Gap 10 (5-15); BUN 11 mg/dL (4-19); BUN/Creat Ratio 14.6 RATIO (10-20); Calcium,Total 9.4 mg/dL (7.6-11.0); Carbon Dioxide 24.8 mmol/L (21.0-32.0); Chloride 104 mmol/L (98-108); Cholesterol 182 mg/dL (<=200); Creatinine, Serum 0.72 mg/dL (0.70-1.20); EST Glomerular Filtration Rate 110 (>60); Globulin 3.3 g/dL (2.2-4.2); Glucose 100 mg/dL (70-99); High Density Lipoprotein 41 mg/dL; Low Density Lipoprotein Calc. 110 mg/dL; Potassium 3.8 mmol/L (3.3-5.1); Protein, Total 7.5 g/dL (5.9-8.4); Sodium Level 138 mmol/L (133-145); Total Bilirubin 0.32 mg/dL (0.00-1.30); Triglycerides 158 mg/dL; Very Low Density Lipoprotein 32 mg/dL (5-40); cholesterol:hdl ratio screen 4.48
[2024-06-30 14:19] LABS: Microalbumin,Random Urine < 12.0 mg/L (NO RANGE EST.); Microalbumin:Creatinine Ratio UNABLE TO CALCULATE mg/g CRE
== END | disposition home or self-care (01) ==
LOC: LAB 10:19
PROVIDERS: Referring Provider Nurse Practitioner Family; Visit Provider Nurse Practitioner Family
DX: E11.65 Type 2 diabetes mellitus with hyperglycemia (principal); Z79.4 Long term (current) use of insulin
CPT/HCPCS: 36415; 80053; 80061; 82043; 82570; 84443

== ENCOUNTER → 2024-07-16 | Outpatient (CLI) | payer MEDICAID, SELFPAY ==
[2024-07-16 17:54] LABS: hCG Titer Quant., Serum 24 mIU/mL (<9 non-preg)
== END | disposition home or self-care (01) ==
PROVIDERS: Referring Provider Obstetrics & Gynecology; Visit Provider Obstetrics & Gynecology
DX: N91.2 Amenorrhea, unspecified (principal)
CPT/HCPCS: 36415; 84702

== ENCOUNTER → 2024-07-18 | Outpatient (CLI) | payer MEDICAID, SELFPAY ==
[2024-07-18 15:42] LABS: hCG Titer Quant., Serum 8 mIU/mL (<9 non-preg)
== END | disposition home or self-care (01) ==
LOC: LAB 14:30
PROVIDERS: Visit Provider Obstetrics & Gynecology
DX: N91.2 Amenorrhea, unspecified (principal)
CPT/HCPCS: 84702

== ENCOUNTER 2024-07-19 10:18 | Emergency (ER) | payer MEDICAID, SELFPAY ==
[2024-07-19 10:19] VITALS: BP 125/71; PULSE 65; RESP 16; TEMP 36.7; O2SAT 99; BMI 35.4
--- NOTE | 2024-07-19 11:03 | US_ITS ---
PROCEDURE: TRANSVAGINAL W/PREG US 07/19/2024 REASON FOR EXAM: RIGHT PELVIC PAIN, NEAR-SYNCOPE TECHNIQUE: Transvaginal. COMPARISON: None FINDINGS: Comments: LMP: June 16, 2024 Number of Gestational Sacs: 0 Yolk Sac: Not visualized. Uterine Abnormalities: 1 cm x 1 cm x 0.9 cm fundal fibroid. Small nabothian cyst. Ovaries / Adnexa: Enlarged right ovary. It measures 5.3 cm x 3.2 cm x 3.1 cm. There is a 3.1 cm x 2.5 cm x 3 cm cyst within it. The left ovary measures 2.4 cm x 2.1 cm x 1.3 cm. Minimal amount of free fluid is seen in the cul-de-sac. ESTIMATED GESTATIONAL AGE: By LMP: 4 weeks and 5 days ESTIMATED DATE OF DELIVERY: By LMP: March 23, 2025. US/Transvaginal w/Preg US IMPRESSION: No intrauterine gestational sac is seen. Small fundal fibroid of the uterus. 3.1 cm x 2.5 cm x 3 cm cyst in the enlarged right ovary. Reading Location: [place] [id number]
[2024-07-19] MEDS: 0.9% Normal Saline (1000mL) 1,000 ML 999 ML IV (11:22)
[2024-07-19] MEDS: Ondansetron 4 MG/2 ML Vial IV (11:22)
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
[2024-07-19 11:32] LABS: Mucous, Urine 0 SEEN /hpf (<or=2+)
[2024-07-19 11:33] LABS: Absolute Lymphocyte Count 1.99 X10^3/uL (0.83-4.51); Absolute Neutrophil Count 4.2 X10^3/uL (2.0-7.7); Basophil# 0.04 X10^3/uL; Basophil% 0.6 % (0-1); Eosinophil# 0.15 X10^3/uL; Eosinophils% 2.1 % (0-5); Hematocrit 39.5 % (37-47); Hemoglobin 13.1 g/dL (12.0-15.0); Lymphocyte # 1.99 X10^3/ul (0.83-4.51); Lymphocyte % 28.3 % (19-41); Mean Corp Hgb Conc 33.2 g/dL (32-36); Mean Corpuscular Hgb 28.5 pg (27.0-32.0); Mean Corpuscular Volume 85.9 fL (81-99); Mean Platelet Vol. 9.2 fl (6.2-12.0); Monocyte# 0.66 X10^3/uL; Monocyte% 9.4 % (0-10); NRBC Flagged by Analyzer 0 % (0-5); Neutrophil # 4.18 X10^3/uL (2.7-7.7); Neutrophil % 59.3 % (47-70); Platelet Count 206 K/mm3 (150-450); RBC Distribution Width CV 13.5 % (11.6-14.6); RBC Distribution Width SD 42.3 fl (35.1-43.9)
[2024-07-19 11:36] LABS: Color, Urine Yellow (Yellow); Glucose, Dipstick Normal (Normal); Ketone-Dipstick Negative (Negative); Leukocyte Esterase-Dipstick Negative /ul (Negative); Nitrite-Dipstick Negative (Negative); Occult Blood-Urine Negative /ul (Negative); Protein-Dipstick 15 mg/dl (Negative); Urine Bilirubin Dipstick Negative (Negative); Urine Clarity Clear (Clear); Urine Urobilinogen Normal (Normal)
[2024-07-19 12:04] LABS: Red Blood Cells-Urine 0-5 SEEN /hpf (0-5); White Blood Cells 0-5 SEEN /hpf (0-5)
[2024-07-19 12:05] LABS: Bacteria 1+ /hpf (None Seen); Squamous Epithelial Cells - UA 0-5 SEEN /hpf (5-10)
[2024-07-19 12:19] VITALS: PULSE 69; RESP 16; O2SAT 97
[2024-07-19 12:23] LABS: ALB/GLOB Ratio 1.6 RATIO (0.9-2.4); AST(SGOT) 65 U/L (<=31); Alanine Aminotransfer ALT/SGPT 101 U/L (<=34); Albumin, Serum 3.9 g/dL (3.5-5.0); Alkaline Phosphatase 157 U/L (35-104); Anion Gap 11 (5-15); BUN 13 mg/dL (4-19); BUN/Creat Ratio 21.5 RATIO (10-20); Calcium,Total 8.8 mg/dL (7.6-11.0); Carbon Dioxide 18.7 mmol/L (21.0-32.0); Chloride 107 mmol/L (98-108); Creatinine, Serum 0.59 mg/dL (0.70-1.20); EST Glomerular Filtration Rate 118 (>60); Estimated Creatinine Clearance 128.12 ml/min (50-250); Globulin 2.4 g/dL (2.2-4.2); Glucose 134 mg/dL (70-99); Potassium 3.9 mmol/L (3.3-5.1); Protein, Total 6.3 g/dL (5.9-8.4); Sodium Level 137 mmol/L (133-145); Total Bilirubin 0.22 mg/dL (0.00-1.30)
[2024-07-19 12:36] LABS: hCG Titer Quant., Serum 3 mIU/mL (<9 non-preg)
[2024-07-19 14:00] VITALS: PULSE 71; RESP 16; O2SAT 97
[2024-07-19 14:25] VITALS: BP 125/71; PULSE 71; RESP 16; TEMP 36.7; O2SAT 97
== END 2024-07-19 14:35 | disposition home or self-care (01) ==
PROVIDERS: Emergency Provider Emergency Medicine; Visit Provider Emergency Medicine
DX: O02.1 Missed abortion (principal); N83.201 Unspecified ovarian cyst, right side; R42 Dizziness and giddiness; O99.891 Other specified diseases and conditions complicating pregnancy; Z90.49 Acquired absence of other specified parts of digestive tract; O34.80 Maternal care for other abnormalities of pelvic organs, unspecified trimester; Z3A.00 Weeks of gestation of pregnancy not specified
CPT/HCPCS: 76817; 80053; 81001; 84702; 85025; 96361; 96374; 99283; A4216; J2405

== ENCOUNTER → 2024-10-04 | Outpatient (CLI) | payer MEDICAID, SELFPAY ==
[2024-10-06 04:07] LABS: PROGESTERONE 21.8 ng/mL (.)
== END | disposition home or self-care (01) ==
PROVIDERS: Obstetrics & Gynecology; Referring Provider Advanced Practice Midwife; Visit Provider Advanced Practice Midwife
DX: N97.0 Female infertility associated with anovulation (principal)
CPT/HCPCS: 36415; 84144

== ENCOUNTER → 2024-10-28 | Outpatient (CLI) | payer MEDICAID, SELFPAY ==
[2024-11-02 17:08] LABS: QNTFERON TB Mitogen Value > 10.00 IU/mL (.); QNTFERON TB Nil Value 0.05 IU/mL (.); QNTFERON TB1+ Ag Value 0.12 IU/mL (.); QNTFERON TB2+ Ag Value 0.12 IU/mL (.); QNTIFERON TB Positive Criteria Negative (Negative)
== END | disposition home or self-care (01) ==
PROVIDERS: PCP Physician Assistant Medical; Referring Provider Physician Assistant; Visit Provider Physician Assistant
DX: L40.0 Psoriasis vulgaris (principal)
CPT/HCPCS: 36415; 86480

== ENCOUNTER 2024-11-24 19:13 | Emergency (ER) | payer MEDICAID, SELFPAY ==
[2024-11-24 19:13] VITALS: PULSE 82; RESP 15; TEMP 36.6; O2SAT 100; BMI 34.5
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
--- OUTSIDE RECORDS SUMMARY | 2024-11-24 19:52 | XMS RPT_ITS | CCD ---
Author Organization [facility] Care Team Providers Care Technical Business Systems Analyst Name Role Phone Niangua ANALYTICS SENIOR MANAGER, Kasie Matos Unavailable MIRYAM Goodman RN, Micki Guan Unavailable Unavailabl e Felgar, Angelita C Unavailable Unavailable Felgar, Angelita C Unavailable Unavailable Felgar, Angelita C Unavailable Unavailable Felgar, Angelita C Unavailable Unavailable MIRYAM Goodman RN, Micki A Unavailable Unavailabl e MIRYAM Goodman RN, Micki Guan Unavailable Unavailabl e Unavailable Primary Care Provider Unavailabl e Free, Text Entry Unavailable Unavailable David Seaman Unavailable Alonzo Rosales Unavailable Unavailable Nelly Agarwal MD Primary Care Provider Pending Provider Unavailable Unavailable Oberhauser, Nicola L Unavailable Unavailable Primary Care Provider Unavailabl e Unavailable Unavailable Podlogar ANALYTICS SENIOR MANAGER, ANALYTICS SENIOR MANAGER-C Radha Primary Care Provider Podlogar ANALYT[employer] SENIOR MANAGER, ANALYTICS SENIOR MANAGER-C Radha Referring Provider [phone] Dr. Michelle Huerta Attending Provider [phone] Vasilyjustina DDS, Francesca Unavailable [phone] Oberhauser DO, Nicola Primary Care Provider [phone] Vasilyeva DDS, Francesca Unavailable Oberhauser, Nicola Primary Care Unavailable Oberhauser, Nicola Attending Unavailable Oberhauser, Nicola Primary Care Unavailable Oberhauser, Nicola Attending Unavailable Oberhauser, Nicola Primary Care Unavailable Aris Moreno Attending Unavailable Oberhauser, Nicola Primary Care Unavailable Aris Moreno Attending Unavailable Oberhauser DO, Nicola L Primary Care Provider PROVIDER, UNKNOWN Admitting Unavailable PROVIDER, UNKNOWN Attending Unavailable PROVIDER, UNKNOWN Admitting Unavailable PROVIDER, UNKNOWN Attending Unavailable PROVIDER, UNKNOWN Admitting Unavailable PROVIDER, UNKNOWN Attending Unavailable PROVIDER, UNKNOWN Admitting Unavailable PROVIDER, UNKNOWN Attending Unavailable PROVIDER, UNKNOWN Admitting Unavailable PROVIDER, UNKNOWN Attending Unavailable PROVIDER, UNKNOWN Admitting Unavailable PROVIDER, UNKNOWN Attending Unavailable PROVIDER, UNKNOWN Admitting Unavailable PROVIDER, UNKNOWN Attending Unavailable PROVIDER, UNKNOWN Attending Unavailable PROVIDER, UNKNOWN Admitting Unavailable PROVIDER, UNKNOWN Admitting Unavailable PROVIDER, UNKNOWN Attending Unavailable PODLOGAR, RADHA A Primary Care Unavailable PODLOGAR, RADHA A Referring Unavailable BOYDSTUN, ANTHONY P Attending Unavailable PODLOGAR, RADHA A Primary Care Unavailable PODLOGAR, RADHA A Referring Unavailable BOYDSTUN, ANTHONY P Attending Unavailable PODLOGAR, RADHA A Primary Care Unavailable KUPIECJADEN Referring Unavailable BOYDSTUN, ANTHONY P Attending Unavailable PODLOGAR, RADHA A Primary Care Unavailable PODLOGAR, RADHA A Referring Unavailable [#/Vol] 0.2 10*3/uL [facility] Eosinophils/100 WBC (Bld) 1.7 % 0.0 - 6.0 % [facility] Erythrocyte distribution width (RBC) [Ratio] 13.1 % 11.5 - 14.5 % [facility] Hematocrit (Bld) [Volume fraction] 49 % High 36.0 - 46.0 % [facility] Hemoglobin (Bld) [Mass/Vol] 16.2 g/dL High 12.0 - 16.0 g/dL [facility] Immature granulocytes (Bld) [#/Vol] 0.04 10*3/uL [facility] Immature granulocytes/100 WBC (Bld) 0.3 % 0.0 - 0.9 % [facility] Comment on above: Immature Granulocyte Count (IG) includes promyelocytes, myelocytes and metamyelocytes but does not include bands. Percent differential counts (%) should be interpreted in the context of the absolute cell counts (cells/UL). Interpretation and review of laboratory results Abnormal [facility] Lymphocytes (Bld) [#/Vol] 2.33 10*3/uL [facility] Lymphocytes/100 WBC (Bld) 19.4 % 13.0 - 44.0 % [facility] MCH (RBC) [Entitic mass] 28.5 pg 26.0 - 34.0 pg [facility] MCHC (RBC) [Mass/Vol] 33.1 g/dL 32.0 - 36.0 g/dL [facility] MCV (RBC) [Entitic vol] 86 fL 80 - 100 fL [facility] Monocytes (Bld) [#/Vol] 0.73 10*3/uL [facility] Monocytes/100 WBC (Bld) 6.1 % 2.0 - 10.0 % [facility] Neutrophils (Bld) [#/Vol] 8.68 10*3/uL High [facility] Comment on above: Percent differential counts (%) should be interpreted in the context of the absolute cell counts (cells/uL). Neutrophils/100 WBC (Bld) 72 % 40.0 - 80.0 % [facility] Nucleated RBC/100 WBC (Bld) [Ratio] 0 % [facility] Platelets (Bld) [#/Vol] 287 10*3/uL [facility] RBC (Bld) [#/Vol] 5.68 10*6/uL High [facility] WBC (Bld) [#/Vol] 12 10*3/uL High [facility] Basophils (Bld) [#/Vol] 0.06 x10*3/uL Normal 0.00-0.10 [facility] Comment on above: Performed By: #### 5 643-2 #### BIN SCOTT ([id number]) [facility] ([facility]) [address] [place] [address] 66944 Basophils/100 WBC (Bld) 0.5 % Normal 0.0-2.0 [facility] Comment on above: Performed By: #### 5 643-2 #### BIN SCOTT ([id number]) [facility] ([facility]) [address] [place] [address] 38248 Eosinophils (Bld) [#/Vol] 0.20 x10*3/uL Normal 0.00-0.70 [facility] Comment on above: Performed By: #### 5 643-2 #### BIN SCOTT ([id number]) [facility] ([facility]) [address] [place] [address] 14023 Eosinophils/100 WBC (Bld) 1.7 % Normal 0.0-6.0 [facility] Comment on above: Performed By: #### 5 643-2 #### BIN SCOTT ([id number]) [facility] ([facility]) [address] [place] [address] 50327 Erythrocyte distribution width (RBC) [Ratio] 13.1 % Normal 11.5-14.5 [facility] Comment on above: Performed By: #### 5 643-2 #### BIN SCOTT ([id number]) [facility] ([facility]) [address] [place], [place] [id number] Hematocrit (Bld) [Volume fraction] 49.0 % High 36.0-46.0 [facility] Comment on above: Performed By: #### 5 643-2 #### BIN SCOTT ([id number]) [facility] ([facility]) [address] [place] [address] 65310 Hemoglobin (Bld) [Mass/Vol] 16.2 g/dL High 12.0-16.0 [facility] Comment on above: Performed By: #### 5 643-2 #### BIN SCOTT ([id number]) [facility] ([facility]) [address] [place] [address] 71055 Immature granulocytes (Bld) [#/Vol] 0.04 x10*3/uL Normal 0.00-0.70 [facility] Comment on above: Performed By: #### 5 643-2 #### BIN SCOTT ([id number]) [facility] ([facility]) [address] [place] [address] 03545 Immature granulocytes/100 WBC (Bld) 0.3 % Normal 0.0-0.9 [facility] Comment on above: Result Comment: Tatyana ture Granulocyte Count (IG) includes promyelocytes, myelocytes and metamyelocytes but does not include bands. Percent differential counts (%) should be interpreted in the context of the absolute cell counts (cells/UL). Performed By: #### 5 643-2 #### BIN SCOTT ([id number]) [facility] ([facility]) [address] [place] [address] 94611 Lymphocytes (Bld) [#/Vol] 2.33 x10*3/uL Normal 1.20-4.80 [facility] Comment on above: Performed By: #### 5 643-2 #### BIN SCOTT ([id number]) [facility] ([facility]) [address] [place], [place] [id number] Lymphocytes/100 WBC (Bld) 19.4 % Normal 13.0-44.0 [facility] Comment on above: Performed By: #### 5 643-2 #### BIN SCOTT ([id number]) [facility] ([facility]) [address] [place] [address] 55992 MCH (RBC) [Entitic mass] 28.5 pg Normal 26.0-34.0 [facility] Comment on above: Performed By: #### 5 643-2 #### BIN SCOTT ([id number]) [facility] ([facility]) [address] [place] [address] 78200 MCHC (RBC) [Mass/Vol] 33.1 g/dL Normal 32.0-36.0 [facility] Comment on above: Performed By: #### 5 643-2 #### BIN SCOTT ([id number]) [facility] ([facility]) [address] [place] [address] 94530 MCV (RBC) [Entitic vol] 86 fL Normal 80-100 [facility] Comment on above: Performed By: #### 5 643-2 #### BIN SCOTT ([id number]) [facility] ([facility]) [address] [place] [address] 18504 Monocytes (Bld) [#/Vol] 0.73 x10*3/uL Normal 0.10-1.00 [facility] Comment on above: Performed By: #### 5 643-2 #### BIN SCOTT ([id number]) [facility] ([facility]) [address] [place] [address] 17123 Monocytes/100 WBC (Bld) 6.1 % Normal 2.0-10.0 [facility] Comment on above: Performed By: #### 5 643-2 #### BIN SCOTT ([id number]) [facility] ([facility]) [address] [place] [address] 82669 Neutrophils (Bld) [#/Vol] 8.68 x10*3/uL High 1.20-7.70 [facility] Comment on above: Result Comment: Perc ent differential counts (%) should be interpreted in the context of the absolute cell counts (cells/uL). Performed By: #### 5 643-2 #### BIN SCOTT ([id number]) [facility] ([facility]) [address] [place] [address] 78478 Neutrophils/100 WBC (Bld) 72.0 % Normal 40.0-80.0 [facility] Comment on above: Performed By: #### 5 643-2 #### BIN SCOTT ([id number]) [facility] ([facility]) [address] [place] [address] 53978 Nucleated RBC/100 WBC (Bld) [Ratio] 0.0 /100 WBCs Normal 0.0-0.0 [facility] Comment on above: Performed By: #### 5 643-2 #### BIN SCOTT ([id number]) [facility] ([facility]) [address] [place] [address] 01824 Platelets (Bld) [#/Vol] 287 x10*3/uL Normal 150-450 [facility] Comment on above: Performed By: #### 5 643-2 #### BIN SCOTT ([id number]) [facility] ([facility]) [address] [place] [address] 18754 RBC (Bld) [#/Vol] 5.68 x10*6/uL High 4.00-5.20 [facility] Comment on above: Performed By: #### 5 643-2 #### BIN SCOTT ([id number]) [facility] ([facility]) [address] [place] [address] WBC (Bld) [#/Vol] 12.0 x10*3/uL High 4.4-11.3 [facility] Comment on above: Performed By: #### 5 643-2 #### STEWARD SONIA ([id number]) [facility] ([facility]) [address] [place] [id number] Comprehensive metabolic 2000 panelon 02-12-2024 Albumin BCP dye [Mass/Vol] 4.9 g/dL 3.4 - 5.0 g/dL [facility] ALP [Catalytic activity/Vol] 201 U/L High 33 - 110 U/L [facility] ALT With P-5'-P [Catalytic activity/Vol] 109 U/L High 7 - 45 U/L [facility] Comment on above: Patients treated wit h Sulfasalazine may generate falsely decreased results for ALT. Anion gap [Moles/Vol] 13 mmol/L 10 - 2 0 mmol/L [facility] AST With P-5'-P [Catalytic activity/Vol] 48 U/L High 9 - 39 U/L [facility] Bilirubin [Mass/Vol] 0.5 mg/dL 0.0 - 1 .2 mg/dL [facility] Calcium [Mass/Vol] 10.1 mg/dL 8.6 - 10. 3 mg/dL [facility] Chloride [Moles/Vol] 105 mmol/L 98 - 10 7 mmol/L [facility] CO2 [Moles/Vol] 23 mmol/L 21 - 32 mmol/L [facility] Creatinine [Mass/Vol] 0.7 mg/dL 0.50 - 1.05 mg/dL [facility] eGFR - PINF [facility] Comment on above: Calculations of sherwin mated GFR are performed using the 2020 CKD-EPI Study Refit equation without the race variable for the IDMS-Traceable creatinine methods. https://jasn.asnjournals.org/content//ASN.11720 34640 Glucose [Mass/Vol] 133 mg/dL High 74 - 99 mg/dL [facility] Interpretation and review of laboratory results Abnormal [facility] Potassium [Moles/Vol] 3.9 mmol/L 3.5 - 5.3 mmol/L [facility] Protein [Mass/Vol] 8.3 g/dL High 6.4 - 8.2 g/dL [facility] Sodium [Moles/Vol] 137 mmol/L 136 - 145 mmol/L [facility] Urea nitrogen [Mass/Vol] 22 mg/dL 6 - 23 mg/dL [facility] Albumin BCP dye [Mass/Vol] 4.9 g/dL Normal 3.4-5.0 [facility] Comment on above: Performed By: #### 5 643-2 #### BIN SCOTT ([id number]) [facility] ([facility]) [address] [place] [address] ALP [Catalytic activity/Vol] 201 U/L High 33-110 [facility] Comment on above: Performed By: #### 5 643-2 #### BIN SCOTT ([id number]) [facility] ([facility]) [address] [place] [address] ALT With P-5'-P [Catalytic activity/Vol] 109 U/L High 7-45 [facility] Comment on above: Result Comment: Ana M ents treated with Sulfasalazine may generate falsely decreased results for ALT. Performed By: #### 5 643-2 #### BIN SCOTT ([id number]) [facility] ([facility]) [address] [place] [address] 58809 Anion gap [Moles/Vol] 13 mmol/L Normal 10-20 [facility] Comment on above: Performed By: #### 5 643-2 #### BIN SCOTT ([id number]) [facility] ([facility]) [address] [place] [address] 55982 AST With P-5'-P [Catalytic activity/Vol] 48 U/L High 9-39 [facility] Comment on above: Performed By: #### 5 643-2 #### BIN SCOTT ([id number]) [facility] ([facility]) [address] [place] [address] 81248 Bilirubin [Mass/Vol] 0.5 mg/dL Normal 0.0-1.2 [facility] Comment on above: Performed By: #### 5 643-2 #### BIN SCOTT ([id number]) [facility] ([facility]) [address] [place] [address] 31930 Calcium [Mass/Vol] 10.1 mg/dL Normal 8.6-10.3 [facility] Comment on above: Performed By: #### 5 643-2 #### BIN SCOTT ([id number]) [facility] ([facility]) [address] [place] [address] 54749 Chloride [Moles/Vol] 105 mmol/L Normal 98-107 [facility] Comment on above: Performed By: #### 5 643-2 #### BIN SCOTT ([id number]) [facility] ([facility]) [address] [place] [address] 95500 CO2 [Moles/Vol] 23 mmol/L Normal 21-32 [facility] Comment on above: Performed By: #### 5 643-2 #### BIN SCOTT ([id number]) [facility] ([facility]) [address] [place] [address] 69598 Creatinine [Mass/Vol] 0.70 mg/dL Normal 0.50-1.05 [facility] Comment on above: Performed By: #### 5 643-2 #### BIN SCOTT ([id number]) [facility] ([facility]) [address] [place] [address] 93976 GFR/1.73 sq M.predicted MDRD (S/P/Bld) [Vol rate/Area] mL/min/{1.73_m2} Normal >60 [facility] Comment on above: Result Comment: Calc ulations of estimated GFR are performed using the 2020 CKD-EPI Study Refit equation without the race variable for the IDMS-Traceable creatinine methods. https://jasn.asnjournals.org/content//ASN.24465 97828 Performed By: #### 5 643-2 #### BIN SCOTT ([id number]) [facility] ([facility]) [facility] [place] [address] Glucose [Mass/Vol] 133 mg/dL High 74-99 [facility] Comment on above: Performed By: #### 5 643-2 #### BIN SCOTT ([id number]) [facility] ([facility]) [address] [place] [address] 88015 Potassium [Moles/Vol] 3.9 mmol/L Normal 3.5-5.3 [facility] Comment on above: Performed By: #### 5 643-2 #### BIN SCOTT ([id number]) [facility] ([facility]) [address] [place] [address] 40901 Protein [Mass/Vol] 8.3 g/dL High 6.4-8.2 [facility] Comment on above: Performed By: #### 5 643-2 #### BIN SCOTT ([id number]) [facility] ([facility]) [address] [place] [address] 73559 Sodium [Moles/Vol] 137 mmol/L Normal 136-145 [facility] Comment on above: Performed By: #### 5 643-2 #### BIN SCOTT ([id number]) [facility] ([facility]) [address] [place] [address] 17373 Urea nitrogen [Mass/Vol] 22 mg/dL Normal 6-23 [facility] Comment on above: Performed By: #### 5 643-2 #### BNI SCOTT ([id number]) [facility] ([facility]) [address] [place] [address] 02347 ECG 12-LEADon 02-12-2024 ECG 12-LEAD Ventricular Rate 84 Atrial Rate 84 P-R Interval 148 QRS Duration 82 Q-T Interval 374 QTC Calculation(Bazett) 441 P Elgin 7 R Elgin 24 T Elgin 10 QRS Count 14 Q Onset 216 P Onset 142 P Offset 195 T Offset 403 QTC Fredericia 418 Diagnosis Normal sinus rhythm with sinus arrhythmia Normal ECG When compared with ECG of 05-FEB-2024 15:31, No significant change was found See ED provider note for full interpretation and clinical correlation Confirmed by Ramesh Serrano ([id number]) on 02/20/2024 12:30:21 PM Normal [facility] Glucose Test strip manual (B ld) [Mass/Vol]on 02-12-2024 Glucose [Mass/Vol] 120 mg/dL High 74 - 99 mg/dL [facility] Interpretation and review of laboratory results Abnormal [facility] Glucose [Mass/Vol] 120 mg/dL High 74-99 [facility] Comment on above: Performed By: #### 5 643-2 #### BIN SCOTT ([id number]) [facility] ([facility]) [address] [place] [address] Glucose [Mass/Vol] 106 mg/dL High 74 - 99 mg/dL [facility] Interpretation and review of laboratory results Abnormal [facility] Glucose [Mass/Vol] 106 mg/dL High 74-99 [facility] Comment on above: Performed By: #### 5 643-2 #### BIN SCOTT ([id number]) [facility] ([facility]) [address] [place] [address] HCG ( test) IA.rapi d Ql (U)Ordered By: Odalis Pike on 02-12-2024 HCG ( test) Ql (U) Negative NEGATIVE [facility] Interpretation and review of laboratory results Normal [facility] HCG ( test) IA.rapi d Ql (U)on 02-12-2024 HCG ( test) Ql (U) Negative Normal NEGATIVE [facility] Comment on above: Performed By: #### 5 643-2 #### BNI SCOTT ([id number]) [facility] ([facility]) [address] [place] [address] Magnesiumon 02-12-2024 Magnesium [Mass/Vol] 1.94 mg/dL 1.60 - 2.40 mg/dL [facility] Magnesium [Mass/Vol] 1.94 mg/dL Normal 1.60-2.40 [facility] Comment on above: Performed By: #### 5 643-2 #### STEWARD SONIA ([id number]) [facility] ([facility]) [address] [place] [address] Magnesium [Mass/Vol]on 02-11 Interpretation and review of laboratory results Normal [facility] No Panel Informationon 02-11 [facility] Tropinin I.cardiac panel Hig h sensitivity methodon 02-12-2024 Interpretation and review of laboratory results Normal [facility] Less than 99th percentile of normal range cutoff- Female and children under 18 years old <14 ng/L; Male <21 ng/L: Negative Repeat testing should be performed if clinically indicated. Female and children under 18 years old 14-50 ng/L; Male 21-50 ng/L: Consistent with possible cardiac damage and possible increased clinical risk. Serial measurements may help to assess extent of myocardial damage. >50 ng/L: Consistent with cardiac damage, increased clinical risk and myocardial infarction. Serial measurements may help assess extent of myocardial damage. NOTE: Children less than 1 year old may have higher baseline troponin levels and results should be interpreted in conjunction with the overall clinical context. NOTE: Troponin I testing is performed using a different testing methodology at [facility] than at other [facility]. Direct result comparisons should only be made within the same method. [facility] Troponin I, High Sensitivity on 02-12-2024 Tropinin I.cardiac panel High sensitivity method 3 ng/L 0 - 13 ng/L [facility] Troponin I.cardiac panelon 1 Tropinin I.cardiac panel High sensitivity method 3 ng/L Normal 0-13 [facility] Comment on above: Order Comment: Less than 99th percentile of normal range cutoff-Female and children under 18 years old <14 ng/L; Male <21 ng/L: NegativeRepeat testing should be performed if clinically indicated.Female and children under 18 years old 14-50 ng/L; Male 21-50 ng/L:Consistent with possible cardiac damage and possible increased clinicalrisk. Serial measurements may help to assess extent of myocardial damage.>50 ng/L: Consistent with cardiac damage, increased clinical risk andmyocardial infarction. Serial measurements may help assess extent ofmyocardial damage.NOTE: Children less than 1 year old may have higher baseline troponinlevels and results should be interpreted in conjunction with the overallclinical context.NOTE: Troponin I testing is performed using a differenttesting methodology at [facility] than at [facility]. Direct result comparisons should onlybe made within the same method. Performed By: #### 5 643-2 #### STEWARD SONIA ([id number]) [facility] ([facility]) [address] [place] [address] Urinalysis complete W Reflex Culture panel (U)on 02-12-2024 Appearance (U) Clear Clear [facility] Bacteria Auto (Urine sed) [#/Area] 1+ Abnormal NONE SEEN /HPF [facility] Bilirubin (U) [Mass/Vol] Negative NEGATIVE [facility] Color (U) Light-Yellow Light-Yellow , Yellow, Dark-Yellow [facility] Crystals.amorphous Computer assisted (U) [#/Area] 1+ NONE, 1+, 2+ /HPF [facility] Epithelial cells.squamous Auto (Urine sed) [#/Area] 1-9 (SPARSE) Reference range not established. /HPF [facility] Glucose Auto test strip (U) [Mass/Vol] Normal Normal mg/dL [facility] Interpretation and review of laboratory results Normal [facility] Interpretation and review of laboratory results Abnormal [facility] Ketones (U) [Mass/Vol] Negative NEGAT REHAN mg/dL [facility] Leukocyte esterase Auto test strip Ql (U) Negative NEGATIVE [facility] Mucus Auto (Urine sed) [#/Area] FEW Reference range not established. /LPF [facility] Nitrite Auto test strip Ql (U) Negative NEGATIVE [facility] pH (U) 5.5 [pH] 5.0, 5.5, 6.0, 6.5, 7.0, 7.5, 8.0 [facility] Protein (U) [Mass/Vol] 10 (TRACE) NEGAT REHAN, 10 (TRACE), 20 (TRACE) mg/dL [facility] RBC (U) [#/Vol] Negative NEGATIVE [facility] RBC Auto (Urine sed) [#/Area] 3-5 NONE, 1-2, 3-5 /HPF [facility] Specific gravity (U) [Rel density] 1.024 1.005 - 1.035 [facility] Urobilinogen (U) [Mass/Vol] Normal Normal mg/dL [facility] WBC Auto (Urine sed) [#/Area] 1-5 1-5, NONE /HPF [facility] Appearance (U) Clear Normal Clear [facility] Comment on above: Performed By: #### 5 643-2 #### BIN SCOTT ([id number]) [facility] ([facility]) [address] [place] [address] Bacteria Auto (Urine sed) [#/Area] 1+ /HPF Abnormal NONE SEEN [facility] Comment on above: Performed By: #### 5 643-2 #### BIN SCOTT ([id number]) [facility] ([facility]) [address] [place] [address] Bilirubin (U) [Mass/Vol] Negative Normal NEGATIVE [facility] Comment on above: Performed By: #### 5 643-2 #### BIN SCOTT ([id number]) [facility] ([facility]) [address] [place] [address] Color (U) Light-Yellow Normal Light-Yellow , Yellow, Dark-Yellow [facility] Comment on above: Performed By: #### 5 643-2 #### BIN SCOTT ([id number]) [facility] ([facility]) [address] [place] [address] Crystals.amorphous Computer assisted (U) [#/Area] 1+ /HPF Normal NONE, 1+, 2+ [facility] Comment on above: Performed By: #### 5 643-2 #### BIN SCOTT ([id number]) [facility] ([facility]) [address] [place] [address] Epithelial cells.squamous Auto (Urine sed) [#/Area] 1-9 (SPARSE) Normal Reference range not established. [facility] Comment on above: Performed By: #### 5 643-2 #### BIN SCOTT ([id number]) [facility] ([facility]) [address] [place] [address] 48010 Glucose Auto test strip (U) [Mass/Vol] Normal Normal Normal [facility] Comment on above: Performed By: #### 5 643-2 #### BIN SCOTT ([id number]) [facility] ([facility]) [address] [place] [address] 27390 Ketones (U) [Mass/Vol] Negative Normal NEGATIVE [facility] Comment on above: Performed By: #### 5 643-2 #### BIN SCOTT ([id number]) [facility] ([facility]) [address] [place] [address] 23014 Leukocyte esterase Auto test strip Ql (U) Negative Normal NEGATIVE [facility] Comment on above: Performed By: #### 5 643-2 #### BIN SCOTT ([id number]) [facility] ([facility]) [address] [place], [place] [id number] Mucus Auto (Urine sed) [#/Area] FEW Normal Reference range not established. [facility] Comment on above: Performed By: #### 5 643-2 #### BIN SCOTT ([id number]) [facility] ([facility]) [address] [place] [address] 32676 Nitrite Auto test strip Ql (U) Negative Normal NEGATIVE [facility] Comment on above: Performed By: #### 5 643-2 #### BIN SCOTT ([id number]) [facility] ([facility]) [address] [place] [address] 10677 pH (U) 5.5 [pH] Normal 5.0, 5.5, 6.0, 6.5, 7.0, 7.5, 8.0 [facility] Comment on above: Performed By: #### 5 643-2 #### BIN SCOTT ([id number]) [facility] ([facility]) [address] [place] [address] 08793 Protein (U) [Mass/Vol] 10 (TRACE) Normal NEGAT REHAN, 10 (TRACE), 20 (TRACE) [facility] Comment on above: Performed By: #### 5 643-2 #### BIN SCOTT ([id number]) [facility] ([facility]) [address] [place] [address] RBC (U) [#/Vol] Negative Normal NEGATIVE [facility] Comment on above: Performed By: #### 5 643-2 #### BIN SCOTT ([id number]) [facility] ([facility]) [address] [place] [address] RBC Auto (Urine sed) [#/Area] 3-5 Normal NONE, 1-2, 3-5 [facility] Comment on above: Performed By: #### 5 643-2 #### BIN SCOTT ([id number]) [facility] ([facility]) [address] [place] [address] Specific gravity (U) [Rel density] 1.024 Normal 1.005-1.035 [facility] Comment on above: Performed By: #### 5 643-2 #### BIN SCOTT ([id number]) [facility] ([facility]) [address] [place] [address] 12640 Urobilinogen (U) [Mass/Vol] Normal Normal Normal [facility] Comment on above: Performed By: #### 5 643-2 #### BIN SCOTT ([id number]) [facility] ([facility]) [address] [place] [address] 90786 WBC Auto (Urine sed) [#/Area] 1-5 Normal 1-5, NONE [facility] Comment on above: Performed By: #### 5 643-2 #### BIN SCOTT ([id number]) [facility] ([facility]) [address] [place] [address] XR CHEST 1 VIEWon 02-12-2024 XR CHEST 1 VIEW Interpreted By: Abimael Vick i, STUDY: XR CHEST 1 VIEW; 02/12/2024 12:30 am INDICATION: Signs/Symptoms:weaknes s; hypoglycemia. COMPARISON: CT chest abdomen and pelvis 02/05/2024 ACCESSION NUMBER(S): [id number] ORDERING CLINICIAN: RAMESH SERRANO FINDINGS: Lungs are clear. No pleural effusion or pneumothorax. Cardiomediastinal contour is normal in size and configuration. No remarkable upper abdominal findings. No acute osseous abnormality. IMPRESSION: 1. No acute cardiopulmonary process. MACRO: None Signed by: Abimael Botello 02/12/2024 1:12 AM Dictation workstation: [id number] [facility] XR Chest Single viewon 02-11 1. No acute cardiopulmonary process. MACRO: None Signed by: Abimael Botello 02/12/2024 1:12 AM Dictation workstation: [id number] MMODAL Interpreted By: Abimael Vick i, STUDY: XR CHEST 1 VIEW; 02/12/2024 12:30 am INDICATION: Signs/Symptoms:weaknes s; hypoglycemia. COMPARISON: CT chest abdomen and pelvis 02/05/2024 ACCESSION NUMBER(S): [id number] ORDERING CLINICIAN: RAMESH SERRANO FINDINGS: Lungs are clear. No pleural effusion or pneumothorax.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 other Details: bilateral lower leg pain ; Denies arthralgias Integumentary Denies rash Neurologic Neurologic: Reports headache(s) and paresthesias; Denies weakness EXAM Physical Exam Const Vital Signs: 12/10/23 14:55 12/10/23 18:58 12/10/23 21:15 Temperature 97 (more content not included)... Normal [facility] L/S Spine Min 4 Views11-20 L/S Spine Min 4 Views [facility] Imaging Services [address] [place] [address] L/S Spine Min 4 Views MR#: [id number] Acct: [id number] Name: ANAHI DWYER Rep #: [id number] : 1985 F 38 From: Aston singh MD PCP: Dr. Nicola Glez DO Status: REG ER Study: L/S Spine Min 4 Views Date of Exam: 12/10/23 Exam# [id number] Ordering Dr: Joy Pappas DO [id number] STUDY: X-RAY - LUMBAR SPINE REASON FOR EXAM: Female, 38 years old. pain TECHNIQUE: 5 view(s) of the lumbar spine were obtained. COMPARISON: None FINDINGS: Normal lumbar lordosis. There is no substantial scoliosis. There is a normal alignment of the vertebrae. Normal vertebral bodies and endplates. Normal disc space heights. There is no demonstrated fracture. The soft tissue structures are unremarkable. RAD/L/S Spine Min 4 Views IMPRESSION: Normal x-ray examination of the lumbar spine. Electronically Signed: Aston Manzo MD at 16:40 EDT , CC: Dr. Joy Pappas, DO; Dr. Nicola Glez, DO Staffing Account Manager: Signed Normal [facility] L501.4020on 12-10-2023 TROPONIN-I HS < 3 Low 3.0-54.0 [facility] Comment on above: Order Comment: 'TROP ' Serial specimen #1, #2 or #3: 1 Result Comment: Jorge otoole Note: New Test Units and Gender Specific Reference Ranges. For more information see Policy Stat Procedure [place] High Sensitivity Troponin (TNIH) and attachments. Performed By: #### L 501.6900, L501.4020, L100.0100, L500.4050 #### [facility] [place], [place], [address] Lipaseon 12-10-2023 Lipase [Catalytic activity/Vol] 65 U/L Normal 13-75 [facility] Comment on above: Result Comment: Jorge otoole note: LIPASE revised reference range effective 22. New Lipase methodology. Expected to produce lower values than the previous assay method. NEW Reference Range: 13 - 75 U/L Performed By: #### L 501.2450 #### [facility] Laboratory [address] [place], [place], [address] Liveron 12-10-2023 Liver [facility] Imaging Services [address] [place] [address] Liver MR#: [id number] Acct: [id number] Name: ANAHI DWYER Rep #: [id number] : [id number] F [id number] From: Aston singh MD PCP: Dr. Nicola Glez, DO Status: REG ER Study: Liver Date of Exam: 12/10/23 Exam# [id number] Ordering Dr: Joy Pappas DO [id number] STUDY: ABDOMINAL ULTRASOUND - RIGHT UPPER QUADRANT REASON FOR VISIT: Female, 38 years old pain, transaminitis . TECHNIQUE: Ultrasound evaluation of the right upper quadrant was performed with real-time and static swanson-scale imaging. TECHNICAL QUALITY: Adequate. COMPARISON: 03/21/2023. FINDINGS: Liver: The liver measures 19.3 cm. There is increased echogenicity consistent with fatty infiltration. The bile ducts are within normal limits. There is hepatic color flow. The direction of portal flow is hepatopetal. There is no demonstrated mass lesion. Gallbladder: The patient is status post cholecystectomy. Common Bile Duct (C.B.D.): The common bile duct measures 5 mm. Pancreas: Normal size of the head, body and tail of the pancreas. There is normal echogenicity of the pancreas. There is no demonstrated pancreatic mass or cyst. Right Kidney: Normal size of the right kidney. The right kidney measures 12.3 cm. Normal renal cortex. The right cortex measures 1.7 cm. There is no demonstrated renal mass or cyst. There is no right hydronephrosis. US/Liver IMPRESSION: Hepatomegaly. Fatty liver. Otherwise negative. Electronically Signed: Aston Manzo MD at 19:28 EDT , CC: Dr. Joy Pappas, DO; Dr. Nicola Glez, DO Staffing Account Manager: Signed Normal [facility] ,Urineon 12-10-2023 Beta HCG ( test) Ql (U) Negative Normal [facility] Comment on above: Order Comment: CLEAN CATCH Result Comment: Very dilute urine specimens, as indicated by a low specific gravity, may not contain artist's representative levels of hCG. If is still suspected, a first morning urine specimen should be collected 48 hours later and tested. Performed By: #### L 700.8000 #### [facility] [address] [place], [address] Urinalysis, Completeon 12-09 BACTERIA 1+ /hpf Normal None Seen [facility] Comment on above: Order Comment: CLEAN CATCH Performed By: #### L 700.8000 #### [facility] [address] [place], [address] EPI,SQUAMOUS 0-5 SEEN Normal 5-10 [facility] Comment on above: Order Comment: CLEAN CATCH Performed By: #### L 700.8000 #### [facility] [address] [place], [address] Mucus Ql (Urine sed) 0 SEEN Normal [facility] Comment on above: Order Comment: CLEAN CATCH Performed By: #### L 700.8000 #### [facility] [address] [place], [address] RBC 0 SEEN Normal 0-5 [facility] Comment on above: Order Comment: CLEAN CATCH Performed By: #### L 700.8000 #### [facility] [address] [place], [address] WBC 0 SEEN Normal 0-5 [facility] Comment on above: Order Comment: CLEAN CATCH Performed By: #### L 700.8000 #### [facility] [address] [place], [address] Venous Blood Gason 4 Blood Gas Type ALEX Normal [facility] Comment on above: Performed By: #### L 9000.0810 #### [facility] [address] [place], [address] CO2 [Moles/Vol] 22 mmol/L Low 23-33 [facility] Comment on above: Performed By: #### L 9000.0810 #### [facility] [address] [place], [address] HCO3 (Bld) [Moles/Vol] 21 mmol/L Low 22-26 [facility] Comment on above: Performed By: #### L 9000.0810 #### [facility] [address] [place], [address] O2 Delivery Dev Not entered Normal [facility] Comment on above: Performed By: #### L 9000.0810 #### [facility] [address] [place], [address] SITE Not entered Normal [facility] Comment on above: Performed By: #### L 9000.0810 #### [facility] [address] [place], [address] VBG BE -5 mmol/L Low -1.0-3.5 [facility] Comment on above: Performed By: #### L 9000.0810 #### [facility] [address] [place], [address] VBG pCO2 36.5 mmHg Low 41-51 [facility] Comment on above: Performed By: #### L 9000.0810 #### [facility] [address] [place], [place], [address] VBG pH 7.36 Normal 7.32-7.42 [facility] Comment on above: Performed By: #### L 9000.0810 #### [facility] [address] [place], [address] VBG PO2 41 mmHg High 25-40 [facility] Comment on above: Performed By: #### L 9000.0810 #### [facility] [address] [place], [address] VBG SO2 75 High 50-70 [facility] Comment on above: Performed By: #### L 9000.0810 #### [facility] [address] [place], [address] CBC W Auto Differential pane l (Bld)on 11-20-2023 Basophils (Bld) [#/Vol] 0.06 x10*3/uL Normal 0.00-0.10 [facility] Comment on above: Performed By: #### 6 3453-5 #### BRENNA Napier ([id number]) [facility] ([facility]) [address] [place] [address] Basophils/100 WBC (Bld) 0.7 % Normal 0.0-2.0 [facility] Comment on above: Performed By: #### 6 3453-5 #### BRENNA Napier ([id number]) [facility] ([facility]) [address] [place] [address] Eosinophils (Bld) [#/Vol] 0.17 x10*3/uL Normal 0.00-0.70 [facility] Comment on above: Performed By: #### 6 3453-5 #### BRENNA Napier ([id number]) [facility] ([facility]) [address] [place] [address] Eosinophils/100 WBC (Bld) 2.1 % Normal 0.0-6.0 [facility] Comment on above: Performed By: #### 6 0073-5 #### BRENNA Napier ([id number]) [facility] ([facility]) [address] [place] [address] 12255 Erythrocyte distribution width (RBC) [Ratio] 12.8 % Normal 11.5-14.5 [facility] Comment on above: Performed By: #### 6 4233-5 #### BRENNA Napier ([id number]) [facility] ([facility]) [address] [place] [address] Hematocrit (Bld) [Volume fraction] 45.7 % Normal 36.0-46.0 [facility] Comment on above: Performed By: #### 6 1703-5 #### BRENNA Napier ([id number]) [facility] ([facility]) [address] [place] [address] 17070 Hemoglobin (Bld) [Mass/Vol] 14.9 g/dL Normal 12.0-16.0 [facility] Comment on above: Performed By: #### 6 5303-5 #### BRENNA Napier ([id number]) [facility] ([facility]) [address] [place] [address]808 Immature granulocytes (Bld) [#/Vol] 0.02 x10*3/uL Normal 0.00-0.70 [facility] Comment on above: Performed By: #### 6 7303-5 #### BRENNA Napier ([id number]) [facility] ([facility]) [address] [place] [address] 44362 Immature granulocytes/100 WBC (Bld) 0.2 % Normal 0.0-0.9 [facility] Comment on above: Result Comment: Tatyana ture Granulocyte Count (IG) includes promyelocytes, myelocytes and metamyelocytes but does not include bands. Percent differential counts (%) should be interpreted in the context of the absolute cell counts (cells/UL). Performed By: #### 6 73035 #### BRENNA Napier ([id number]) [facility] ([facility]) [address] [place] [address] [place] [address] Lymphocytes (Bld) [#/Vol] 2.44 x10*3/uL Normal 1.20-4.80 [facility] Comment on above: Performed By: #### 6 6093-5 #### BRENNA Napier ([id number]) [facility] ([facility]) [address] [place] [address] 75569 Lymphocytes/100 WBC (Bld) 30.1 % Normal 13.0-44.0 [facility] Comment on above: Performed By: #### 6 2833-5 #### BRENNA Napier ([id number]) [facility] ([facility]) [address] [place] [address] 67101 MCH (RBC) [Entitic mass] 28.0 pg Normal 26.0-34.0 [facility] Comment on above: Performed By: #### 6 0453-5 #### BRENNA Napier ([id number]) [facility] ([facility]) [address] [place] [address] 86339 MCHC (RBC) [Mass/Vol] 32.6 g/dL Normal 32.0-36.0 [facility] Comment on above: Performed By: #### 6 5403-5 #### BRENNA Napier (09293) [facility] ([facility]) [address] [place] [address] 11858 MCV (RBC) [Entitic vol] 86 fL Normal 80-100 [facility] Comment on above: Performed By: #### 6 2183-5 #### BRENNA Napier ([id number]) [facility] ([facility]) [address] [place] [address] 33055 Monocytes (Bld) [#/Vol] 0.49 x10*3/uL Normal 0.10-1.00 [facility] Comment on above: Performed By: #### 6 0173-5 #### BRENNA Napier ([id number]) [facility] ([facility]) [address] [place] [address] 06249 Monocytes/100 WBC (Bld) 6.0 % Normal 2.0-10.0 [facility] Comment on above: Performed By: #### 6 3453-5 #### BRENNA Napier ([id number]) [facility] ([facility]) [address] [place] [address] 63028 Neutrophils (Bld) [#/Vol] 4.93 x10*3/uL Normal 1.20-7.70 [facility] Comment on above: Result Comment: Perc ent differential counts (%) should be interpreted in the context of the absolute cell counts (cells/uL). Performed By: #### 6 3453-5 #### BRENNA Napier ([id number]) [facility] ([facility]) [address] [place] [address] 46322 Neutrophils/100 WBC (Bld) 60.9 % Normal 40.0-80.0 [facility] Comment on above: Performed By: #### 6 2533-5 #### BRENNA Napier (18808) [facility] ([facility]) [address] [place] [address] 74560 Nucleated RBC/100 WBC (Bld) [Ratio] 0.0 /100 WBCs Normal 0.0-0.0 [facility] Comment on above: Performed By: #### 6 1843-5 #### BRENNA Napier (84979) [facility] ([facility]) [address] [place] [address] 18873 Platelets (Bld) [#/Vol] 227 x10*3/uL Normal 150-450 [facility] Comment on above: Performed By: #### 6 3453-5 #### BRENNA MALCOLM L (82939) [facility] ([facility]) [address] [place] [address] RBC (Bld) [#/Vol] 5.32 x10*6/uL High 4.00-5.20 [facility] Comment on above: Performed By: #### 6 6593-5 #### BRENNA MALCOLM L (69779) [facility] ([facility]) [address] [place] [address] 64193 WBC (Bld) [#/Vol] 8.1 x10*3/uL Normal 4.4-11.3 [facility] Comment on above: Performed By: #### 6 6793-5 #### BRENNA Napier (61980) [facility] ([facility]) [address] [place] [address] 71013 Comprehensive metabolic 2000 panelon 11-20-2023 Albumin BCP dye [Mass/Vol] 4.5 g/dL Normal 3.4-5.0 [facility] Comment on above: Performed By: #### 6 5883-5 #### BRENNA MALCOLM L (85205) [facility] ([facility]) [address] [place] [address] 34969 ALP [Catalytic activity/Vol] 269 U/L High 33-110 [facility] Comment on above: Performed By: #### 6 0183-5 #### BRENNA Napier (24327) [facility] ([facility]) [address] [place] [address] 87757 ALT With P-5'-P [Catalytic activity/Vol] 214 U/L High 7-45 [facility] Comment on above: Result Comment: Ana M ents treated with Sulfasalazine may generate falsely decreased results for ALT. Performed By: #### 6 2063-5 #### BRENNA Napier ([id number]) [facility] ([facility]) [address] [place] [address] 36907 Anion gap [Moles/Vol] 14 mmol/L Normal 10-20 [facility] Comment on above: Performed By: #### 6 5733-5 #### BRENNA MALCOLM L ([id number]) [facility] ([facility]) [address] [place] [address] AST With P-5'-P [Catalytic activity/Vol] 110 U/L High 9-39 [facility] Comment on above: Performed By: #### 6 4623-5 #### BRENNA MALCOLM L (26626) [facility] ([facility]) [address] [place] [address] 14023 Bilirubin [Mass/Vol] 0.4 mg/dL Normal 0.0-1.2 [facility] Comment on above: Performed By: #### 6 3453-5 #### BRENNA MALCOLM L (27483) [facility] ([facility]) [address] [place] [address] Calcium [Mass/Vol] 10.4 mg/dL Normal 8.6-10.6 [facility] Comment on above: Performed By: #### 6 3453-5 #### BRENNA DANIELTZER L (28493) [facility] ([facility]) [address] [place] [address] Chloride [Moles/Vol] 102 mmol/L Normal 98-107 [facility] Comment on above: Performed By: #### 6 3453-5 #### BRENNA THOMASMOTZER L (95727) [facility] ([facility]) [address] [place] [address] CO2 [Moles/Vol] 24 mmol/L Normal 21-32 [facility] Comment on above: Performed By: #### 6 3453-5 #### BRENNA MALCOLM L (41953) [facility] ([facility]) [address] [place] [address] Creatinine [Mass/Vol] 0.69 mg/dL Normal 0.50-1.05 [facility] Comment on above: Performed By: #### 6 3453-5 #### BRENNA MALCOLM L (06305) [facility] ([facility]) [address] [place] [address] 84654 GFR/1.73 sq M.predicted MDRD (S/P/Bld) [Vol rate/Area] mL/min/{1.73_m2} Normal >60 [facility] Comment on above: Result Comment: Calc ulations of estimated GFR are performed using the 2020 CKD-EPI Study Refit equation without the race variable for the IDMS-Traceable creatinine methods. https://jasn.asnjournals.org/content//ASN53408 43476 Performed By: #### 6 3453-5 #### BRENNA Napier (82144) [facility] ([facility]) [address] [place] [address] 81489 Glucose [Mass/Vol] 349 mg/dL High 74-99 [facility] Comment on above: Performed By: #### 6 3453-5 #### BRENNA Napier ([id number]) [facility] ([facility]) [address] [place] [address] 66054 Potassium [Moles/Vol] 4.7 mmol/L Normal 3.5-5.3 [facility] Comment on above: Performed By: #### 6 7823-5 #### BRENNA Napier (41404) [facility] ([facility]) [address] [place] [address] 35323 Protein [Mass/Vol] 7.8 g/dL Normal 6.4-8.2 [facility] Comment on above: Performed By: #### 6 1213-5 #### BRENNA Napier (84438) [facility] ([facility]) [address] [place] [address] 55231 Sodium [Moles/Vol] 135 mmol/L Low 136-145 [facility] Comment on above: Performed By: #### 6 6173-5 #### BRENNA Napier (56549) [facility] ([facility]) [address] [place] [address] 78536 Urea nitrogen [Mass/Vol] 16 mg/dL Normal 6-23 [facility] Comment on above: Performed By: #### 6 1083-5 #### BRENNA Napier (84954) [facility] ([facility]) [address] [place] [address] 97988 Gamma glutamyl transferaseon 11-20-2023 Gamma glutamyl transferase [Catalytic activity/Vol] 194 U/L High 5-55 [facility] Comment on above: Performed By: #### 6 2343-5 #### BRENNA Napier (02296) [facility] ([facility]) [address] [place] [address] VITAMIN D, TOTAL, 25-OHon VITAMIN D 25-HYDROXY 32 ng/mL Normal 20-100 [facility] Comment on above: Order Comment: Vitam in D Expected Values Deficiency: 0-10 Insufficiency: 10-20 Sufficient: 20-100 Toxicity: >100 Performed By: #### 4 6678 #### LAB [address] [facility] [address] Jorge Crespo M.D. [id number] Vitamin D, Total, 25-OHon 25-hydroxyvitamin D [Mass/Vol] 32 ng/mL 20 - 100 ng/mL [facility] Interpretation and review of laboratory results Normal [facility] Vitamin D Expected Values Deficiency: 0-10 Insufficiency: 10-20 Sufficient: 20-100 Toxicity: >100 [facility] HbA1c (Bld) [Mass fraction]o n 09-05-2023 Average glucose Estimated from glycated hemoglobin (Bld) [Mass/Vol] 278 mg/dL Normal Not Established [facility] Comment on above: Order Comment: Diagn osis of Vgjvdadu-JqbphxQsr-Sojjrhto: < or = 5.6%Increased risk for developing diabetes: 5.7-6.4%Diagnostic of diabetes: > or = 6.5%Monitoring of DiabetesAge (y)....................... Therapeutic Goal (%)Adults: >18.........................<7.0Pediatrics: 13-18...................<7.5Pediatrics: 7-12....................<8.0Pediatrics: 0-6..................... 7.5-8.5American Diabetes Association. Diabetes Care 33(S1), Apr 2009 Performed By: #### 6 3453-5 #### BRENNA Napier (05031) [facility] ([facility]) [address] [place] [address] Hemoglobin A1c/Hemoglobin.to ady 09-05-2023 HbA1c (Bld) [Mass fraction] 11.3 % High see below [facility] Comment on above: Order Comment: Diagn osis of Kqohrdyn-IfvfhvFyn-Pohqzkrw: < or = 5.6%Increased risk for developing diabetes: 5.7-6.4%Diagnostic of diabetes: > or = 6.5%Monitoring of DiabetesAge (y)....................... Therapeutic Goal (%)Adults: >18.........................<7.0Pediatrics: 13-18...................<7.5Pediatrics: 7-12....................<8.0Pediatrics: 0-6..................... 7.5-8.5American Diabetes Association. Diabetes Care 33(S1), Apr 2009 Performed By: #### 6 3453-5 #### BRENNA Napier (44677) [facility] ([facility]) [address] [place], [place] [address] Comprehensive metabolic 2000 panelon 09-03-2023 Albumin BCP dye [Mass/Vol] 3.7 g/dL 3.4 - 5.0 g/dL [facility] ALP [Catalytic activity/Vol] 207 U/L High 33 - 110 U/L [facility] ALT With P-5'-P [Catalytic activity/Vol] 244 U/L High 7 - 45 U/L [facility] Comment on above: Patients treated wit h Sulfasalazine may generate falsely decreased results for ALT. Anion gap [Moles/Vol] 11 mmol/L 10 - 2 0 mmol/L [facility] AST With P-5'-P [Catalytic activity/Vol] 182 U/L High 9 - 39 U/L [facility] Comment on above: MILD HEMOLYSIS DETEC EVELYN. The result may be falsely elevated due to hemolysis or other interferents. Clinical correlation is recommended. Repeat testing may be considered. Bilirubin [Mass/Vol] 0.4 mg/dL 0.0 - 1 .2 mg/dL [facility] Calcium [Mass/Vol] 8.5 mg/dL Low 8.6 - 10. 3 mg/dL [facility] Chloride [Moles/Vol] 110 mmol/L High 98 - 10 7 mmol/L [facility] CO2 [Moles/Vol] 18 mmol/L Low 21 - 32 mmol/L [facility] Creatinine [Mass/Vol] 0.76 mg/dL 0.50 - 1.05 mg/dL [facility] eGFR - PINF [facility] Comment on above: Calculations of sherwin mated GFR are performed using the 2020 CKD-EPI Study Refit equation without the race variable for the IDMS-Traceable creatinine methods. https://jasn.asnjournals.org/content/early/ASN.47528 92890 Glucose [Mass/Vol] 209 mg/dL High 74 - 99 mg/dL [facility] Interpretation and review of laboratory results Abnormal [facility] Potassium [Moles/Vol] 3.9 mmol/L 3.5 - 5.3 mmol/L [facility] Comment on above: MILD HEMOLYSIS DETEC EVELYN. The result may be falsely elevated due to hemolysis or other interferents. Clinical correlation is recommended. Repeat testing may be considered. Protein [Mass/Vol] 6.4 g/dL 6.4 - 8.2 g/dL [facility] Sodium [Moles/Vol] 135 mmol/L Low 136 - 145 mmol/L [facility] Urea nitrogen [Mass/Vol] 11 mg/dL 6 - 23 mg/dL [facility] Glucose Test strip manual (B ld) [Mass/Vol]on 09-03-2023 Glucose [Mass/Vol] 189 mg/dL High 74 - 99 mg/dL [facility] Interpretation and review of laboratory results Abnormal [facility] Glucose [Mass/Vol] 241 mg/dL High 74 - 99 mg/dL [facility] Interpretation and review of laboratory results Abnormal [facility] Lavender Topon 09-03-2023 Extra Tube Hold for add-ons. [facility] Comment on above: Auto resulted. [facility] CBC panel Auto (Bld)on 09-01 Erythrocyte distribution width (RBC) [Ratio] 12.2 % 11.5 - 14.5 % [facility] Hematocrit (Bld) [Volume fraction] 43.9 % 36.0 - 46.0 % [facility] Hemoglobin (Bld) [Mass/Vol] 13.8 g/dL 12.0 - 16.0 g/dL [facility] Interpretation and review of laboratory results Abnormal [facility] MCH (RBC) [Entitic mass] 28.4 pg 26.0 - 34.0 pg [facility] MCHC (RBC) [Mass/Vol] 31.4 g/dL Low 32.0 - 36.0 g/dL [facility] MCV (RBC) [Entitic vol] 90 fL 80 - 100 fL [facility] Nucleated RBC/100 WBC (Bld) [Ratio] 0.0 % [facility] Platelets (Bld) [#/Vol] 184 10*3/uL [facility] RBC (Bld) [#/Vol] 4.86 10*6/uL [facility] WBC (Bld) [#/Vol] 5.8 10*3/uL [facility] Cobalamin (Vitamin B12) [Mas s/Vol]on 09-02-2023 Interpretation and review of laboratory results Normal [facility] Comprehensive metabolic 2000 panelon 09-02-2023 Albumin BCP dye [Mass/Vol] 3.9 g/dL 3.4 - 5.0 g/dL [facility] ALP [Catalytic activity/Vol] 223 U/L High 33 - 110 U/L [facility] ALT With P-5'-P [Catalytic activity/Vol] 253 U/L High 7 - 45 U/L [facility] Comment on above: Patients treated wit h Sulfasalazine may generate falsely decreased results for ALT. Anion gap [Moles/Vol] 10 mmol/L 10 - 2 0 mmol/L [facility] AST With P-5'-P [Catalytic activity/Vol] 194 U/L High 9 - 39 U/L [facility] Bilirubin [Mass/Vol] 0.5 mg/dL 0.0 - 1 .2 mg/dL [facility] Calcium [Mass/Vol] 8.7 mg/dL 8.6 - 10. 3 mg/dL [facility] Chloride [Moles/Vol] 110 mmol/L High 98 - 10 7 mmol/L [facility] CO2 [Moles/Vol] 21 mmol/L 21 - 32 mmol/L [facility] Creatinine [Mass/Vol] 0.75 mg/dL 0.50 - 1.05 mg/dL [facility] eGFR - PINF [facility] Comment on above: Calculations of sherwin mated GFR are performed using the 2020 CKD-EPI Study Refit equation without the race variable for the IDMS-Traceable creatinine methods. https://jasn.asnjournals.org/content//ASN.18541 62279 Glucose [Mass/Vol] 181 mg/dL High 74 - 99 mg/dL [facility] Interpretation and review of laboratory results Abnormal [facility] Potassium [Moles/Vol] 3.7 mmol/L 3.5 - 5.3 mmol/L [facility] Protein [Mass/Vol] 6.6 g/dL 6.4 - 8.2 g/dL [facility] Sodium [Moles/Vol] 137 mmol/L 136 - 145 mmol/L [facility] Urea nitrogen [Mass/Vol] 7 mg/dL 6 - 23 mg/dL [facility] Glucose Test strip manual (B ld) [Mass/Vol]on 09-02-2023 Glucose [Mass/Vol] 188 mg/dL High 74 - 99 mg/dL [facility] Interpretation and review of laboratory results Abnormal [facility] [facility] Glucose [Mass/Vol] 173 mg/dL High 74 - 99 mg/dL [facility] Interpretation and review of laboratory results Abnormal [facility] Glucose [Mass/Vol] 193 mg/dL High 74 - 99 mg/dL [facility] Interpretation and review of laboratory results Abnormal [facility] Glucose [Mass/Vol] 166 mg/dL High 74 - 99 mg/dL [facility] Interpretation and review of laboratory results Abnormal [facility] MR Pancreas WO and W contras t Aixa 09-02-2023 1. Hepatomegaly with hepatic steatosis. 2. Cholecystectomy without abnormal biliary ductal dilatation. Signed by: Amy Rojas 09/02/2023 4:46 PM Dictation workstation: [id number] [facility] Interpreted By: Amy Rojas, STUDY: MRCP PANCREAS W AND WO IV CONTRAST; 09/01/2023 3:38 pm INDICATION: Signs/Symptoms:RUQ pain. COMPARISON: CT dated 08/31/2023 ACCESSION NUMBER(S): [id number] ORDERING CLINICIAN: CHELSEA JON TECHNIQUE: Multiplanar multisequence T1 and T2 weighted images through the abdomen. 17 ml of Gadolinium contrast agent Dotarem were administered intravenously without immediate complication. FINDINGS: Motion degradation limits evaluation. Lower Chest: Clear. Liver: Hepatic steatosis. Hepatomegaly, liver measures 21 cm craniocaudally. Gallbladder and Biliary: Status post cholecystectomy. No abnormal CBD or intrahepatic biliary ductal dilatation. No choledocholithiasis or biliary stricture. Pancreas: No abnormality identified in the pancreas. Limited assessment for detection of pancreatic divisum due to motion artifact. Spleen: No abnormality identified in the spleen. Adrenals: No abnormality identified in either adrenal gland. Urinary: No parenchymal abnormality identified in either kidney. No hydronephrosis. Gastrointestinal/Perit oneum: No small or large bowel obstruction in the visualized abdomen. In the abdomen, there is no extraluminal air. No significant free fluid. Vascular: Abdominal aorta is normal in caliber. Lymphatics: No enlarged lymph nodes by size criteria. MSK/Body Wall: No aggressive bony lesion identified. [facility] Amy Rojas MD - 09/02/2023 Interpreted By: Amy Rojas, STUDY: MRCP PANCREAS W AND WO IV CONTRAST; 09/01/2023 3:38 pm INDICATION: Signs/Symptoms:RUQ pain. COMPARISON: CT dated 08/31/2023 ACCESSION NUMBER(S): [id number] ORDERING CLINICIAN: CHELSEA JON TECHNIQUE: Multiplanar multisequence T1 and T2 weighted images through the abdomen. 17 ml of Gadolinium contrast agent Dotarem were administered intravenously without immediate complication. FINDINGS: Motion degradation limits evaluation. Lower Chest: Clear. Liver: Hepatic steatosis. Hepatomegaly, liver measures 21 cm craniocaudally. Gallbladder and Biliary: Status post cholecystectomy. No abnormal CBD or intrahepatic biliary ductal dilatation. No choledocholithiasis or biliary stricture. Pancreas: No abnormality identified in the pancreas. Limited assessment for detection of pancreatic divisum due to motion artifact. Spleen: No abnormality identified in the spleen. Adrenals: No abnormality identified in either adrenal gland. Urinary: No parenchymal abnormality identified in either kidney. No hydronephrosis. Gastrointestinal/Perit oneum: No small or large bowel obstruction in the visualized abdomen. In the abdomen, there is no extraluminal air. No significant free fluid. Vascular: Abdominal aorta is normal in caliber. Lymphatics: No enlarged lymph nodes by size criteria. MSK/Body Wall: No aggressive bony lesion identified. IMPRESSION: 1. Hepatomegaly with hepatic steatosis. 2. Cholecystectomy without abnormal biliary ductal dilatation. Signed by: Amy Rojas 09/02/2023 4:46 PM Dictation workstation: [id number] [facility] Work Phone: MR Pancreas WO and W contras t IVOrdered By: Amy Rojas on 09-02-2023 [facility] Work Phone: Vitamin B12on 09-02-2023 Cobalamin (Vitamin B12) [Mass/Vol] 512 pg/mL 211 - 911 pg/mL [facility] CBC panel Auto (Bld)on 08-31 Erythrocyte distribution width (RBC) [Ratio] 12.3 % 11.5 - 14.5 % [facility] Hematocrit (Bld) [Volume fraction] 40.9 % 36.0 - 46.0 % [facility] Hemoglobin (Bld) [Mass/Vol] 13.2 g/dL 12.0 - 16.0 g/dL [facility] Interpretation and review of laboratory results Normal [facility] MCH (RBC) [Entitic mass] 29.0 pg 26.0 - 34.0 pg [facility] MCHC (RBC) [Mass/Vol] 32.3 g/dL 32.0 - 36.0 g/dL [facility] MCV (RBC) [Entitic vol] 90 fL 80 - 100 fL [facility] Nucleated RBC/100 WBC (Bld) [Ratio] 0.0 % [facility] Platelets (Bld) [#/Vol] 175 10*3/uL [facility] RBC (Bld) [#/Vol] 4.55 10*6/uL [facility] WBC (Bld) [#/Vol] 5.8 10*3/uL [facility] Comprehensive metabolic 2000 panelon 09-01-2023 Albumin BCP dye [Mass/Vol] 3.5 g/dL 3.4 - 5.0 g/dL [facility] ALP [Catalytic activity/Vol] 198 U/L High 33 - 110 U/L [facility] ALT With P-5'-P [Catalytic activity/Vol] 198 U/L High 7 - 45 U/L [facility] Comment on above: Patients treated wit h Sulfasalazine may generate falsely decreased results for ALT. Anion gap [Moles/Vol] 9 mmol/L Low 10 - 2 0 mmol/L [facility] AST With P-5'-P [Catalytic activity/Vol] 163 U/L High 9 - 39 U/L [facility] Bilirubin [Mass/Vol] 0.5 mg/dL 0.0 - 1 .2 mg/dL [facility] Calcium [Mass/Vol] 7.9 mg/dL Low 8.6 - 10. 3 mg/dL [facility] Chloride [Moles/Vol] 110 mmol/L High 98 - 10 7 mmol/L [facility] CO2 [Moles/Vol] 21 mmol/L 21 - 32 mmol/L [facility] Creatinine [Mass/Vol] 0.64 mg/dL 0.50 - 1.05 mg/dL [facility] eGFR - PINF [facility] Comment on above: Calculations of sherwin mated GFR are performed using the 2020 CKD-EPI Study Refit equation without the race variable for the IDMS-Traceable creatinine methods. https://jasn.asnjournals.org/content//ASN.95244 50641 Glucose [Mass/Vol] 202 mg/dL High 74 - 99 mg/dL [facility] Interpretation and review of laboratory results Abnormal [facility] Potassium [Moles/Vol] 3.7 mmol/L 3.5 - 5.3 mmol/L [facility] Protein [Mass/Vol] 5.9 g/dL Low 6.4 - 8.2 g/dL [facility] Sodium [Moles/Vol] 136 mmol/L 136 - 145 mmol/L [facility] Urea nitrogen [Mass/Vol] 13 mg/dL 6 - 23 mg/dL [facility] Glucose Test strip manual (B ld) [Mass/Vol]on 09-01-2023 Glucose [Mass/Vol] 220 mg/dL High 74 - 99 mg/dL [facility] Interpretation and review of laboratory results Abnormal [facility] Glucose [Mass/Vol] 134 mg/dL High 74 - 99 mg/dL [facility] Interpretation and review of laboratory results Abnormal [facility] Glucose [Mass/Vol] 135 mg/dL High 74 - 99 mg/dL [facility] Interpretation and review of laboratory results Abnormal [facility] MR Brain WO contraston 08-31 No evidence of restricted diffusion to suggest recent ischemia. I personally reviewed the images/study and I agree with the findings as stated by Resident Ga Lagunas MD. This study was interpreted at [place], [place]. MACRO: None Signed by: Bar Mckinley 09/01/2023 6:00 PM Dictation workstation: [id number] [facility] Interpreted By: Bar Cho and Dervishi Mario STUDY: MR BRAIN WO IV CONTRAST; 09/01/2023 10:38 am INDICATION: Signs/Symptoms:dizzine ss. COMPARISON: CT head: 08/31/2023 ACCESSION NUMBER(S): [id number] ORDERING CLINICIAN: CHECO MO TECHNIQUE: Axial T2, FLAIR, DWI, gradient echo T2 and sagittal and coronal T1 weighted images of brain were acquired. FINDINGS: The ventricles, sulci and basal cisterns are within normal limits. There is no extra-axial fluid collections. Diffusion-weighted imaging demonstrates no diffusion restriction abnormality to suggest an acute infarct. No focal parenchymal signal abnormality. No mass effect or midline shift Visualized paranasal sinuses and mastoid air cells are clear. [facility] Bar Mckinley MD - 09/01/2023 Interpreted By: Bar Mckinley, and Bebo Koroma STUDY: MR BRAIN WO IV CONTRAST; 09/01/2023 10:38 am INDICATION: Signs/Symptoms:dizzine ss. COMPARISON: CT head: 08/31/2023 ACCESSION NUMBER(S): [id number] ORDERING CLINICIAN: CHECO MO TECHNIQUE: Axial T2, FLAIR, DWI, gradient echo T2 and sagittal and coronal T1 weighted images of brain were acquired. FINDINGS: The ventricles, sulci and basal cisterns are within normal limits. There is no extra-axial fluid collections. Diffusion-weighted imaging demonstrates no diffusion restriction abnormality to suggest an acute infarct. No focal parenchymal signal abnormality. No mass effect or midline shift Visualized paranasal sinuses and mastoid air cells are clear. IMPRESSION: No evidence of restricted diffusion to suggest recent ischemia. I personally reviewed the images/study and I agree with the findings as stated by Resident Ga Lagunas MD. This study was interpreted at [place], [place]. MACRO: None Signed by: Bar Mckinley 09/01/2023 6:00 PM Dictation workstation: [id number] [facility] Work Phone: Radiology Study observation (narrative) [facility] Work Phone: MR Brain WO contrastOrdered By: Bar Mckinley on 09-01-2023 [facility] Work Phone: MR Pancreas WO and W contras t Aixa 09-01-2023 Radiology Study observation (narrative) [facility] Work Phone: PT Coag (PPP) [Time]on 08-31 INR Coag (PPP) [Relative time] 1.2 {INR} High 0.9 - 1.1 [facility] Interpretation and review of laboratory results Abnormal [facility] Protime-INRon 09-01-2023 PT Coag (PPP) [Time] 13.1 s High [facility] Beta hydroxybutyrate [Mass o r moles/Vol]on 08-31-2023 Beta hydroxybutyrate [Moles/Vol] 0.18 mmol/L 0.02 - 0.27 mmol/L [facility] Interpretation and review of laboratory results Normal [facility] The beta-hydroxybutyrate test performance characteristics have been validated by [facility]. This test has not been approved by the FDA; however, such approval is not necessary. [facility] CBC W Auto Differential pane l (Bld)on 08-31-2023 Basophils (Bld) [#/Vol] 0.06 10*3/uL [facility] Basophils/100 WBC (Bld) 1.1 % 0.0 - 2.0 % [facility] Eosinophils (Bld) [#/Vol] 0.12 10*3/uL [facility] Eosinophils/100 WBC (Bld) 2.1 % 0.0 - 6.0 % [facility] Erythrocyte distribution width (RBC) [Ratio] 12.0 % 11.5 - 14.5 % [facility] Hematocrit (Bld) [Volume fraction] 44.1 % 36.0 - 46.0 % [facility] Hemoglobin (Bld) [Mass/Vol] 14.1 g/dL 12.0 - 16.0 g/dL [facility] Immature granulocytes (Bld) [#/Vol] 0.02 10*3/uL [facility] Immature granulocytes/100 WBC (Bld) 0.4 % 0.0 - 0.9 % [facility] Comment on above: Immature Granulocyte Count (IG) includes promyelocytes, myelocytes and metamyelocytes but does not include bands. Percent differential counts (%) should be interpreted in the context of the absolute cell counts (cells/UL). Lymphocytes (Bld) [#/Vol] 1.83 10*3/uL [facility] Lymphocytes/100 WBC (Bld) 32.7 % 13.0 - 44.0 % [facility] MCH (RBC) [Entitic mass] 28.8 pg 26.0 - 34.0 pg [facility] MCHC (RBC) [Mass/Vol] 32.0 g/dL 32.0 - 36.0 g/dL [facility] MCV (RBC) [Entitic vol] 90 fL 80 - 100 fL [facility] Monocytes (Bld) [#/Vol] 0.39 10*3/uL [facility] Monocytes/100 WBC (Bld) 7.0 % 2.0 - 10.0 % [facility] Neutrophils (Bld) [#/Vol] 3.17 10*3/uL [facility] Comment on above: Percent differential counts (%) should be interpreted in the context of the absolute cell counts (cells/uL). Neutrophils/100 WBC (Bld) 56.7 % 40.0 - 80.0 % [facility] Nucleated RBC/100 WBC (Bld) [Ratio] 0.0 % [facility] Platelets (Bld) [#/Vol] 181 10*3/uL [facility] RBC (Bld) [#/Vol] 4.90 10*6/uL [facility] WBC (Bld) [#/Vol] 5.6 10*3/uL [facility] CT Abdomen and Pelvis W cont rast Aixa 08-31-2023 Hepatomegaly and diffuse fatty infiltration of the liver. Previous cholecystectomy. No biliary dilation. Normal appendix. No bowel obstruction. MACRO: None. Signed by: Miky Mccann 08/31/2023 12:25 PM Dictation workstation: [id number] [facility] Interpreted By: Miky Mccann, STUDY: CT ABDOMEN PELVIS W IV CONTRAST; 08/31/2023 12:09 pm INDICATION: Signs/Symptoms:RUQ abd pain. COMPARISON: 06/16/2023. ACCESSION NUMBER(S): [id number] ORDERING CLINICIAN: HOLLEY GARNER TECHNIQUE: Contiguous axial images were obtained through the abdomen and pelvis after the administration of 69 mL Omnipaque 350 intravenous contrast. Coronal and sagittal reformations were made. FINDINGS: LOWER CHEST: Lung bases are clear. ABDOMEN: LIVER: Liver is enlarged measuring 20 cm in craniocaudal dimension. Diffuse fatty infiltration of the liver is again seen. BILE DUCTS: Nondilated. GALLBLADDER: Surgically absent. PANCREAS: Within normal limits. SPLEEN: Within normal limits. ADRENAL GLANDS: Within normal limits. KIDNEYS AND URETERS: The kidneys enhance symmetrically without focal lesion. No hydroureteronephrosis bilaterally. Urinary bladder is unremarkable. VESSELS: There is no aneurysmal dilatation of the abdominal aorta. The IVC is within normal limits. BOWEL: No bowel obstruction. Appendix is normal. No focal diverticular disease. PERITONEUM/RETROPERITO NEUM/LYMPH NODES: No ascites or free air, no fluid collection. No retroperitoneal fluid collection or lymphadenopathy. ABDOMINAL WALL: Unremarkable. BONE AND SOFT TISSUE: There is L5 left unilateral spondylolysis without spondylolisthesis. [facility] Miky Mccann MD - 08/31/2023 Interpreted By: Miky Mccann, STUDY: CT ABDOMEN PELVIS W IV CONTRAST; 08/31/2023 12:09 pm INDICATION: Signs/Symptoms:RUQ abd pain. COMPARISON: 06/16/2023. ACCESSION NUMBER(S): [id number] ORDERING CLINICIAN: HOLLEY GARNER TECHNIQUE: Contiguous axial images were obtained through the abdomen and pelvis after the administration of 69 mL Omnipaque 350 intravenous contrast. Coronal and sagittal reformations were made. FINDINGS: LOWER CHEST: Lung bases are clear. ABDOMEN: LIVER: Liver is enlarged measuring 20 cm in craniocaudal dimension. Diffuse fatty infiltration of the liver is again seen. BILE DUCTS: Nondilated. GALLBLADDER: Surgically absent. PANCREAS: Within normal limits. SPLEEN: Within normal limits. ADRENAL GLANDS: Within normal limits. KIDNEYS AND URETERS: The kidneys enhance symmetrically without focal lesion. No hydroureteronephrosis bilaterally. Urinary bladder is unremarkable. VESSELS: There is no aneurysmal dilatation of the abdominal aorta. The IVC is within normal limits. BOWEL: No bowel obstruction. Appendix is normal. No focal diverticular disease. PERITONEUM/RETROPERITO NEUM/LYMPH NODES: No ascites or free air, no fluid collection. No retroperitoneal fluid collection or lymphadenopathy. ABDOMINAL WALL: Unremarkable. BONE AND SOFT TISSUE: There is L5 left unilateral spondylolysis without spondylolisthesis. IMPRESSION: Hepatomegaly and diffuse fatty infiltration of the liver. Previous cholecystectomy. No biliary dilation. Normal appendix. No bowel obstruction. MACRO: None. Signed by: Miky Mccann 08/31/2023 12:25 PM Dictation workstation: [id number] [facility] Work Phone: [facility] Work Phone: CT Head WO contraston 2023 No acute intracrania l process. MACRO: None. Signed by: Miky Mccann 08/31/2023 12:17 PM Dictation workstation: [id number] [facility] Interpreted By: Miky Mccann, STUDY: CT HEAD WO IV CONTRAST; 08/31/2023 12:09 pm INDICATION: Signs/Symptoms:dizzine ss. COMPARISON: None. ACCESSION NUMBER(S): [id number] ORDERING CLINICIAN: HOLLEY GARNER TECHNIQUE: Contiguous unenhanced axial images were obtained through the brain. FINDINGS: INTRACRANIAL: No acute intracranial bleed, midline shift, or mass effect is seen. Swanson-white differentiation is maintained. No extra-axial fluid collection or hydrocephalus. Bones are intact. EXTRACRANIAL: Visualized paranasal sinuses and mastoids are clear. [facility] Miky Mccann MD - 08/31/2023 Interpreted By: Miky Mccann, STUDY: CT HEAD WO IV CONTRAST; 08/31/2023 12:09 pm INDICATION: Signs/Symptoms:dizzine ss. COMPARISON: None. ACCESSION NUMBER(S): [id number] ORDERING CLINICIAN: HOLLEY GARNER TECHNIQUE: Contiguous unenhanced axial images were obtained through the brain. FINDINGS: INTRACRANIAL: No acute intracranial bleed, midline shift, or mass effect is seen. Swanson-white differentiation is maintained. No extra-axial fluid collection or hydrocephalus. Bones are intact. EXTRACRANIAL: Visualized paranasal sinuses and mastoids are clear. IMPRESSION: No acute intracranial process. MACRO: None. Signed by: Miky Mccann 08/31/2023 12:17 PM Dictation workstation: [id number] [facility] Work Phone: CT Head WO contrastOrdered B y: Miky Mccann on 08-31-2023 [facility] Work Phone: Comprehensive metabolic 2000 panelon 08-31-2023 Albumin BCP dye [Mass/Vol] 4.2 g/dL 3.4 - 5.0 g/dL [facility] ALP [Catalytic activity/Vol] 249 U/L High 33 - 110 U/L [facility] ALT With P-5'-P [Catalytic activity/Vol] 218 U/L High 7 - 45 U/L [facility] Comment on above: Patients treated wit h Sulfasalazine may generate falsely decreased results for ALT. Anion gap [Moles/Vol] 13 mmol/L 10 - 2 0 mmol/L [facility] AST With P-5'-P [Catalytic activity/Vol] 137 U/L High 9 - 39 U/L [facility] Bilirubin [Mass/Vol] 0.4 mg/dL 0.0 - 1 .2 mg/dL [facility] Calcium [Mass/Vol] 8.8 mg/dL 8.6 - 10. 3 mg/dL [facility] Chloride [Moles/Vol] 101 mmol/L 98 - 10 7 mmol/L [facility] CO2 [Moles/Vol] 21 mmol/L 21 - 32 mmol/L [facility] Creatinine [Mass/Vol] 0.81 mg/dL 0.50 - 1.05 mg/dL [facility] eGFR - PINF [facility] Comment on above: Calculations of sherwin mated GFR are performed using the 2020 CKD-EPI Study Refit equation without the race variable for the IDMS-Traceable creatinine methods. https://jasn.asnjournals.org/content//ASN.89146 56275 Glucose [Mass/Vol] 505 mg/dL Critically high 74 - 9 9 mg/dL [facility] Interpretation and review of laboratory results Abnormal [facility] Potassium [Moles/Vol] 4.1 mmol/L 3.5 - 5.3 mmol/L [facility] Protein [Mass/Vol] 7.1 g/dL 6.4 - 8.2 g/dL [facility] Sodium [Moles/Vol] 131 mmol/L Low 136 - 145 mmol/L [facility] Urea nitrogen [Mass/Vol] 13 mg/dL 6 - 23 mg/dL [facility] ECG 12-LEADon 08-31-2023 ECG 12-LEAD Ventricular Rate 75 Atrial Rate 75 P-R Interval 138 QRS Duration 82 Q-T Interval 376 QTC Calculation(Bazett) 419 P Elgin 8 R Elgin 55 T Elgin 7 QRS Count 12 Q Onset 217 P Onset 148 P Offset 197 T Offset 405 QTC Fredericia 404 Diagnosis Normal sinus rhythm Cannot rule out Inferior infarct (cited on or before 16-JUN-2023) Abnormal ECG When compared with ECG of 16-JUN-2023 16:55, No significant change was found See ED provider note for full interpretation and clinical correlation Confirmed by Holley Landry ([id number]) on 09/10/2023 3:13:42 PM Normal [facility] Extra Urine Swanson Tubeon 08-19 Extra Tube Hold for add-ons. [facility] Comment on above: Auto resulted. [facility] FLUAV and FLUBV RNA GAY+prob e Nom (Unsp spec)on 08-31-2023 FLUAV RNA GAY+probe Ql (Resp) Not detected Not Detected [facility] FLUBV RNA GAY+probe Ql (Resp) Not detected Not Detected [facility] This assay is an in vitro diagnostic multiplex nucleic acid amplification test for the detection and discrimination of Influenza A & B from nasopharyngeal specimens, and has been validated for use at [facility]. Negative results do not preclude Influenza A/B infections, and should not be used as the sole basis for diagnosis, treatment, or other management decisions. If Influenza A/B and RSV PCR results are negative, testing for Parainfluenza virus, Adenovirus and Metapneumovirus is routinely performed for [facility] pediatric oncology and intensive care inpatients, and is available on other patients by placing an add-on request. [facility] Glucose Test strip manual (B ld) [Mass/Vol]on 08-31-2023 Glucose [Mass/Vol] 250 mg/dL High 74 - 99 mg/dL [facility] Interpretation and review of laboratory results Abnormal [facility] Glucose [Mass/Vol] 317 mg/dL High 74 - 99 mg/dL [facility] Interpretation and review of laboratory results Abnormal [facility] Glucose [Mass/Vol] 461 mg/dL High 74 - 99 mg/dL [facility] Comment on above: RN/MD NOTIFIED Interpretation and review of laboratory results Abnormal [facility] Glucose [Mass/Vol] 434 mg/dL High 74 - 99 mg/dL [facility] Interpretation and review of laboratory results Abnormal [facility] HCG ( test) IAnataliya d Ql (U)Ordered By: Freddy Dillard on 08-31-2023 HCG ( test) Ql (U) Negative NEGATIVE [facility] Interpretation and review of laboratory results Normal [facility] Lipaseon 08-31-2023 Lipase [Catalytic activity/Vol] 62 U/L 9 - 82 U/L [facility] Lipase [Catalytic activity/V ol]on 08-31-2023 Interpretation and review of laboratory results Normal [facility] Venipuncture immediately after or during the administration of Metamizole may lead to falsely low results. Testing should be performed immediately prior to Metamizole dosing. [facility] No Panel Informationon 08-30 Interpretation and review of laboratory results Normal [facility] Radiology Study observation (narrative) [facility] Work Phone: RSV PCRon 08-31-2023 RSV RNA GAY+probe Ql (Resp) Not detected Not Detected [facility] RSV RNA GAY+probe Ql (Resp)o n 08-31-2023 This assay is an FDA-cleared, in vitro diagnostic nucleic acid amplification test for the detection of RSV from nasopharyngeal specimens, and has been validated for use at [facility]. Negative results do not preclude RSV infections, and should not be used as the sole basis for diagnosis, treatment, or other management decisions. If Influenza A/B and RSV PCR results are negative, testing for Parainfluenza virus, Adenovirus and Metapneumovirus is routinely performed for pediatric oncology and intensive care inpatients at [facility], and is available on other patients by placing an add-on request. [facility] SARS-CoV-2 (COVID-19) RNA NA A+probe Ql (Resp)on 08-31-2023 This assay has received FDA Emergency Use Authorization (EUA) and is only authorized for the duration of time that circumstances exist to justify the authorization of the emergency use of in vitro diagnostic tests for the detection of SARS-CoV-2 virus and/or diagnosis of COVID-19 infection under section 564(b)(1) of the Act, 21 U.S.C. 360bbb-3(b)(1). This assay is an in vitro diagnostic nucleic acid amplification test for the qualitative detection of SARS-CoV-2 from nasopharyngeal specimens and has been validated for use at [facility]. Negative results do not preclude COVID-19 infections and should not be used as the sole basis for diagnosis, treatment, or other management decisions. [facility] Sars-CoV-2 PCRon 08-31-2023 SARS-CoV-2 (COVID-19) RNA GAY+probe Ql (Resp) Not detected Not Detected [facility] TSHon 08-31-2023 TSH Qn 2.34 m[IU]/L [facility] TSH Qnon 08-31-2023 Interpretation and review of laboratory results Normal [facility] TSH testing is performed using different testing methodology at [facility] than at [facility]. Direct result comparisons should only be made within the same method. [facility] Tropinin I.cardiac panel Hig h sensitivity methodon 08-31-2023 Interpretation and review of laboratory results Normal [facility] Less than 99th percentile of normal range cutoff- Female and children under 18 years old <14 ng/L; Male <21 ng/L: Negative Repeat testing should be performed if clinically indicated. Female and children under 18 years old 14-50 ng/L; Male 21-50 ng/L: Consistent with possible cardiac damage and possible increased clinical risk. Serial measurements may help to assess extent of myocardial damage. >50 ng/L: Consistent with cardiac damage, increased clinical risk and myocardial infarction. Serial measurements may help assess extent of myocardial damage. NOTE: Children less than 1 year old may have higher baseline troponin levels and results should be interpreted in conjunction with the overall clinical context. NOTE: Troponin I testing is performed using a different testing methodology at [facility] than at other [facility]. Direct result comparisons should only be made within the same method. [facility] Troponin I, High Sensitivity on 08-31-2023 Tropinin I.cardiac panel High sensitivity method 4 ng/L 0 - 13 ng/L [facility] Urinalysis complete W Reflex Culture panel (U)on 08-31-2023 Appearance (U) Clear Clear [facility] Bilirubin (U) [Mass/Vol] Negative NEGATIVE [facility] Color (U) Straw Straw, Yellow [facility] Epithelial cells.squamous Auto (Urine sed) [#/Area] 1-9 (SPARSE) Reference range not established. /HPF [facility] Glucose Auto test strip (U) [Mass/Vol] >=500 (3+) Abnormal NEGATIVE mg/dL [facility] Interpretation and review of laboratory results Abnormal [facility] Ketones (U) [Mass/Vol] Negative NEGAT REHAN mg/dL [facility] Leukocyte esterase Auto test strip Ql (U) Negative NEGATIVE [facility] Nitrite Auto test strip Ql (U) Negative NEGATIVE [facility] pH (U) 5.0 [pH] 5.0, 5.5, 6.0, 6.5, 7.0, 7.5, 8.0 [facility] Protein (U) [Mass/Vol] Negative NEGAT REHAN mg/dL [facility] RBC (U) [#/Vol] LARGE (3+) Abnormal NEGATIVE [facility] RBC Auto (Urine sed) [#/Area] NONE NONE, 1-2, 3-5 /HPF [facility] Specific gravity (U) [Rel density] 1.032 1.005 - 1.035 [facility] Urobilinogen (U) [Mass/Vol] mg/dL NINF - 2.0 mg/dL [facility] WBC Auto (Urine sed) [#/Area] 1-5 1-5, NONE /HPF [facility] VITAMIN D, TOTAL, 25-OHon VITAMIN D 25-HYDROXY 20 ng/mL Normal 20-100 [facility] Comment on above: Order Comment: Vitam in D Expected Values Deficiency: 0-10 Insufficiency: 10-20 Sufficient: 20-100 Toxicity: >100 Performed By: #### 4 [id number] #### [address] [place], [place] [address] Jorge Crespo M.D. [id number] CBC W Auto Differential pane l (Bld)on 08-14-2023 Basophils (Bld) [#/Vol] 0.06 x10*3/uL Normal 0.00-0.10 [facility] Comment on above: Performed By: #### 6 3453-5 #### BRENNA Napier ([id number]) [facility] ([facility]) [address] [place] [address] 50713 Basophils/100 WBC (Bld) 0.7 % Normal 0.0-2.0 [facility] Comment on above: Performed By: #### 6 3453-5 #### BRENNA Napier ([id number]) [facility] ([facility]) [address] [place] [address] 54617 Eosinophils (Bld) [#/Vol] 0.23 x10*3/uL Normal 0.00-0.70 [facility] Comment on above: Performed By: #### 6 6883-5 #### BRENNA Napier ([id number]) [facility] ([facility]) [address] [place] [address] 47529 Eosinophils/100 WBC (Bld) 2.7 % Normal 0.0-6.0 [facility] Comment on above: Performed By: #### 6 3453-5 #### BRENNA Napier ([id number]) [facility] ([facility]) [address] [place] [address] 53276 Erythrocyte distribution width (RBC) [Ratio] 13.2 % Normal 11.5-14.5 [facility] Comment on above: Performed By: #### 6 3453-5 #### BRENNA Napier ([id number]) [facility] ([facility]) [address] [place] [address] 18910 Hematocrit (Bld) [Volume fraction] 41.0 % Normal 36.0-46.0 [facility] Comment on above: Performed By: #### 6 3453-5 #### BRENNA THOMASMOTZER L ([id number]) [facility] ([facility]) [address] [place] [address] 62260 Hemoglobin (Bld) [Mass/Vol] 13.4 g/dL Normal 12.0-16.0 [facility] Comment on above: Performed By: #### 6 5763-5 #### BRENNA THOMASMOTZER L ([id number]) [facility] ([facility]) [address] [place] [address] 54251 Immature granulocytes (Bld) [#/Vol] 0.02 x10*3/uL Normal 0.00-0.70 [facility] Comment on above: Performed By: #### 6 3453-5 #### BRENNA THOMASMOTZER L ([id number]) [facility] ([facility]) [address] [place] [address] 52561 Immature granulocytes/100 WBC (Bld) 0.2 % Normal 0.0-0.9 [facility] Comment on above: Result Comment: Tatyana ture Granulocyte Count (IG) includes promyelocytes, myelocytes and metamyelocytes but does not include bands. Percent differential counts (%) should be interpreted in the context of the absolute cell counts (cells/UL). Performed By: ####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 By: #### 2 777-1 #### YANIQUE CHARLES ([id number]) [facility] [address] [place] [address] Erythrocyte distribution width (RBC) [Ratio] 13.6 % 11.5 - 14.5 % [facility] Hematocrit (Bld) [Volume fraction] 41.6 % 36.0 - 46.0 % [facility] Hemoglobin (Bld) [Mass/Vol] 13.0 g/dL 12.0 - 16.0 g/dL [facility] Interpretation and review of laboratory results Abnormal [facility] MCH (RBC) [Entitic mass] 28.5 pg 26.0 - 34.0 pg [facility] MCHC (RBC) [Mass/Vol] 31.3 g/dL Low 32.0 - 36.0 g/dL [facility] MCV (RBC) [Entitic vol] 91 fL 80 - 100 fL [facility] Nucleated RBC/100 WBC (Bld) [Ratio] 0.0 % [facility] Platelets (Bld) [#/Vol] 217 10*3/uL [facility] RBC (Bld) [#/Vol] 4.56 10*6/uL [facility] WBC (Bld) [#/Vol] 8.4 10*3/uL [facility] Comprehensive metabolic 2000 panelon 06-20-2023 Albumin BCP dye [Mass/Vol] 4.2 g/dL Normal 3.4-5.0 [facility] Comment on above: Performed By: #### 2 777-1 #### YANIQUE CHARLES ([id number]) [facility] [address] [place] [address] ALP [Catalytic activity/Vol] 215 U/L High 33-110 [facility] Comment on above: Performed By: #### 2 777-1 #### YANIQUE CHARLES ([id number]) [facility] ([facility] [address] [place] [address] ALT With P-5'-P [Catalytic activity/Vol] 222 U/L High 7-45 [facility] Comment on above: Result Comment: Ana M ents treated with Sulfasalazine may generate falsely decreased results for ALT. Performed By: #### 2 777-1 #### YANIQUE CHARLES ([id number]) [facility] [address] [place] [address] Anion gap [Moles/Vol] 11 mmol/L Normal 10-20 [facility] Comment on above: Performed By: #### 2 777-1 #### YANIQUE CHARLES ([id number]) [facility] [address] [place] [address] AST With P-5'-P [Catalytic activity/Vol] 234 U/L High 9-39 [facility] Comment on above: Performed By: #### 2 777-1 #### YANIQUE CHARLES ([id number]) [facility] [address] [place] [address] Bilirubin [Mass/Vol] 0.6 mg/dL Normal 0.0-1.2 [facility] Comment on above: Performed By: #### 2 777-1 #### YANIQUE CHARLES ([id number]) [facility] [address] [place] [address] Calcium [Mass/Vol] 9.3 mg/dL Normal 8.6-10.3 [facility] Comment on above: Performed By: #### 2 777-1 #### YANIQUE CHARLES ([id number]) [facility] [address] [place] [address] Chloride [Moles/Vol] 106 mmol/L Normal 98-107 [facility] Comment on above: Performed By: #### 2 777-1 #### YANIQUE CHARLES ([id number]) [facility] [address] [place] [address] CO2 [Moles/Vol] 24 mmol/L Normal 21-32 [facility] Comment on above: Performed By: #### 2 777-1 #### YANIQUE CHARLES ([id number]) [facility] ([facility] [address] [place] [address] Creatinine [Mass/Vol] 0.81 mg/dL Normal 0.50-1.05 [facility] Comment on above: Performed By: #### 2 777-1 #### YANIQUE CHARLES ([id number]) [facility] ([facility] [address] [place] [address] GFR/1.73 sq M.predicted MDRD (S/P/Bld) [Vol rate/Area] mL/min/{1.73_m2} Normal >60 [facility] Comment on above: Result Comment: Calc ulations of estimated GFR are performed using the 2021 CKD-EPI Study Refit equation without the race variable for the IDMS-Traceable creatinine methods. https://jasn.asnjournals.org/content//ASN.59762 85537 Performed By: #### 2 777-1 #### YANIQUE CHARLES ([id number]) [facility] ([facility] [address] [place] [address] Glucose [Mass/Vol] 126 mg/dL High 74-99 [facility] Comment on above: Performed By: #### 2 777-1 #### YANIQUE CHARLES ([id number]) [facility] [address] [place] [address] Potassium [Moles/Vol] 3.6 mmol/L Normal 3.5-5.3 [facility] Comment on above: Performed By: #### 2 777-1 #### YANIQUE CHARLES ([id number]) [facility] [address] [place] [address] Protein [Mass/Vol] 7.2 g/dL Normal 6.4-8.2 [facility] Comment on above: Performed By: #### 2 777-1 #### YANIQUE CHARLES ([id number]) [facility] [address] [place] [address] Sodium [Moles/Vol] 137 mmol/L Normal 136-145 [facility] Comment on above: Performed By: #### 2 777-1 #### YANIQUE CHARLES ([id number]) [facility] [address] [place] [address] Urea nitrogen [Mass/Vol] 9 mg/dL Normal 6-23 [facility] Comment on above: Performed By: #### 2 777-1 #### YANIQUE CHARLES ([id number]) [facility] [address] [place] [address] Albumin BCP dye [Mass/Vol] 4.2 g/dL 3.4 - 5.0 g/dL [facility] ALP [Catalytic activity/Vol] 215 U/L High 33 - 110 U/L [facility] ALT With P-5'-P [Catalytic activity/Vol] 222 U/L High 7 - 45 U/L [facility] Comment on above: Patients treated wit h Sulfasalazine may generate falsely decreased results for ALT. Anion gap [Moles/Vol] 11 mmol/L 10 - 2 0 mmol/L [facility] AST With P-5'-P [Catalytic activity/Vol] 234 U/L High 9 - 39 U/L [facility] Bilirubin [Mass/Vol] 0.6 mg/dL 0.0 - 1 .2 mg/dL [facility] Calcium [Mass/Vol] 9.3 mg/dL 8.6 - 10. 3 mg/dL [facility] Chloride [Moles/Vol] 106 mmol/L 98 - 10 7 mmol/L [facility] CO2 [Moles/Vol] 24 mmol/L 21 - 32 mmol/L [facility] Creatinine [Mass/Vol] 0.81 mg/dL 0.50 - 1.05 mg/dL [facility] eGFR - PINF [facility] Comment on above: Calculations of sherwin mated GFR are performed using the 2020 CKD-EPI Study Refit equation without the race variable for the IDMS-Traceable creatinine methods. https://jasn.asnjournals.org/content//ASN.91948 [address]81 Glucose [Mass/Vol] 126 mg/dL High 74 - 99 mg/dL [facility] Interpretation and review of laboratory results Abnormal [facility] Potassium [Moles/Vol] 3.6 mmol/L 3.5 - 5.3 mmol/L [facility] Protein [Mass/Vol] 7.2 g/dL 6.4 - 8.2 g/dL [facility] Sodium [Moles/Vol] 137 mmol/L 136 - 145 mmol/L [facility] Urea nitrogen [Mass/Vol] 9 mg/dL 6 - 23 mg/dL [facility] Glucose Test strip manual (B ld) [Mass/Vol]on 06-20-2023 Glucose [Mass/Vol] 111 mg/dL High 74-99 [facility] Comment on above: Performed By: #### 2 777-1 #### YANIQUE CHARLES ([id number]) [facility] ([facility] [address] [place] [address] Glucose [Mass/Vol] 111 mg/dL High 74 - 99 mg/dL [facility] Interpretation and review of laboratory results Abnormal [facility] Glucose [Mass/Vol] 108 mg/dL High 74-99 [facility] Comment on above: Performed By: #### 2 777-1 #### YANIQUE CHARLES ([id number]) [facility] ([facility] [address] [place] [address] Glucose [Mass/Vol] 108 mg/dL High 74 - 99 mg/dL [facility] Interpretation and review of laboratory results Abnormal [facility] Glucose [Mass/Vol] 128 mg/dL High 74-99 [facility] Comment on above: Performed By: #### 2 777-1 #### YANIQUE CHARLES ([id number]) [facility] ([facility] [address] [place] [address] Glucose [Mass/Vol] 128 mg/dL High 74 - 99 mg/dL [facility] Interpretation and review of laboratory results Abnormal [facility] Glucose [Mass/Vol] 129 mg/dL High 74-99 [facility] Comment on above: Performed By: #### 2 777-1 #### YANIQUE CHARLES ([id number]) [facility] ([facility] [address] [place] [address] Glucose [Mass/Vol] 129 mg/dL High 74 - 99 mg/dL [facility] Interpretation and review of laboratory results Abnormal [facility] Glucose [Mass/Vol] 114 mg/dL High 74-99 [facility] Comment on above: Performed By: #### 2 777-1 #### YANIQUE CHARLES ([id number]) [facility] ([facility] [address] [place] [address] Glucose [Mass/Vol] 114 mg/dL High 74 - 99 mg/dL [facility] Interpretation and review of laboratory results Abnormal [facility] Magnesiumon 06-20-2023 Magnesium [Mass/Vol] 1.96 mg/dL Normal 1.60-2.40 [facility] Comment on above: Performed By: #### 2 777-1 #### YANIQUE CHARLES ([id number]) [facility] ([facility] [address] [place] [address] Magnesium [Mass/Vol] 1.96 mg/dL 1.60 - 2.40 mg/dL [facility] Magnesium [Mass/Vol]on 06-19 Interpretation and review of laboratory results Normal [facility] No Panel Informationon 06-19 [facility] Surgical pathology studyon 0 06-20-2023 Surgical pathology study Pathology report.total SEE COMMENT Surgical Pathology Case: [id number] Authorizing Provider: Desmond Lai PA-C Collected: 06/20/2023 1051 Ordering Location: [facility] Received: 06/20/2023 1216 [address] Pathologist: Emilia Daigle MD PhD Specimen: LIVER BIOPSY RIGHT Path report.final diagnosis SEE COMMENT A. LIVER BIOPSY RIGHT: -Steatohepatitis with moderate steatosis and perisinusoidal fibrosis Note: The liver shows 55-60% macrovesicular steatosis with ballooning degeneration and Jackie bodies. Multiple foci of neutrophilic inflammation are present, with rare hepatocyte necrosis. There is no significant portal inflammation, bile duct injury, or cholestasis. Special stains: Iron trace PAS with digestion no cytoplasmic eosinophilic globules Trichrome perisinusoidal Reticulin no collapsed liver parenchyma Laboratory comment By the signature on this report, the individual or group listed as making the Final Interpretation/Diagnos is certifies that they have reviewed this case. Path report.relevant Hx fatty liver Path report.gross observation SEE COMMENT A: Received in formalin, labeled with the patient's name and hospital number and liver BX R, are multiple cylindrical segments of mayo-red soft tissue measuring 0.9 cm, 0.9 cm, and 1.1 cm in length by < 0.1 cm in diameter. The specimen is submitted in toto in two cassettes. DMB Normal [facility] US Guidance for biopsy of Gi pulliam 06-20-2023 1. Significant increased echotexture of the hepatic parenchyma consistent with hepatic steatosis. 2. Random liver biopsy as above. Performed and dictated at [facility]. Signed by: Augie Archibald 06/20/2023 12:32 PM Dictation workstation: [id number] [facility] MMODAL Interpreted By: Augie Archibald, STUDY: US GUIDED NEEDLE LIVER BIOPSY; 06/20/2023 11:16 am INDICATION: Signs/Symptoms:LIver biopsy for Portal HTN on EGD. COMPARISON: 06/16/2023. ACCESSION NUMBER(S): [id number] ORDERING CLINICIAN: PORFIRIO NORTON TECHNIQUE: TIPPLE OILER: Augie Archibald MD CONSENT: The patient was informed of the nature of the proposed procedure. The purposes, alternatives, risks, and benefits were explained and discussed. All questions were answered and consent was obtained. SEDATION: Moderate conscious intravenous sedation services (supervision of administration, induction, and maintenance) were provided by the physician performing the procedure with intravenous fentanyl and versed. Total intra-service sedation time from 9414-4218 hours (10 minutes). The physician was assisted by an independent trained observer, an interventional radiology nurse, in the continuous monitoring of the patient level of consciousness and physiologic status. MEDICATION/CONTRAST: None additional TIME OUT: A time out was performed immediately prior to the procedure start with interventional team, correctly identifying the patient using multiple identifiers and ensuring the appropriate procedure and anatomy (including laterality, if applicable) were identified. The procedure consent form and all relevant laboratory and imaging tests were reviewed. The need for antibiotic administration or patient or procedure specific safety precautions or equipment was reviewed. COMPLICATIONS: None immediate FINDINGS: The patient was positioned supine on the ultrasound table. Limited sonographic images of the liver were obtained for the purpose of needle guidance. These demonstrate diffuse increased echotexture consistent with hepatic steatosis. No focal lesion seen on limited imaging of the right hepatic lobe. The right upper abdomen was then prepped and draped in the usual sterile fashion. The skin and subcutaneous tissues were then anesthetized with 1% lidocaine. A small cutaneous incision was made to allow for passage of a 17 gauge coaxial needle. Next, under direct sonographic guidance, the needle was advanced into the liver and immediately adjacent to the area targeted for biopsy. Once positioned appropriately, the inner stylet was removed and 3 18 gauge core biopsy samples were obtained. Sonographic images of each pass were saved. A Gelfoam pledget was injected through the outer needle as it was withdrawn from the liver. Post procedure images demonstrate no evidence of immediate hemorrhage. A sterile dressing was applied. [facility] MM[facility]AL Augie Archibald MD - 06/20/2023 Interpreted By: Augie Archibald, STUDY: US GUIDED NEEDLE LIVER BIOPSY; 06/20/2023 11:16 am INDICATION: Signs/Symptoms:LIver biopsy for Portal HTN on EGD. COMPARISON: 06/16/2023. ACCESSION NUMBER(S): [id number] ORDERING CLINICIAN: PORFIRIO NORTON TECHNIQUE: TIPPLE OILER: Augie Archibald MD CONSENT: The patient was informed of the nature of the proposed procedure. The purposes, alternatives, risks, and benefits were explained and discussed. All questions were answered and consent was obtained. SEDATION: Moderate conscious intravenous sedation services (supervision of administration, induction, and maintenance) were provided by the physician performing the procedure with intravenous fentanyl and versed. Total intra-service sedation time from 6792-7299 hours (10 minutes). The physician was assisted by an independent trained observer, an interventional radiology nurse, in the continuous monitoring of the patient level of consciousness and physiologic status. MEDICATION/CONTRAST: None additional TIME OUT: A time out was performed immediately prior to the procedure start with interventional team, correctly identifying the patient using multiple identifiers and ensuring the appropriate procedure and anatomy (including laterality, if applicable) were identified. The procedure consent form and all relevant laboratory and imaging tests were reviewed. The need for antibiotic administration or patient or procedure specific safety precautions or equipment was reviewed. COMPLICATIONS: None immediate FINDINGS: The patient was positioned supine on the ultrasound table. Limited sonographic images of the liver were obtained for the purpose of needle guidance. These demonstrate diffuse increased echotexture consistent with hepatic steatosis. No focal lesion seen on limited imaging of the right hepatic lobe. The right upper abdomen was then prepped and draped in the usual sterile fashion. The skin and subcutaneous tissues were then anesthetized with 1% lidocaine. A small cutaneous incision was made to allow for passage of a 17 gauge coaxial needle. Next, under direct sonographic guidance, the needle was advanced into the liver and immediately adjacent to the area targeted for biopsy. Once positioned appropriately, the inner stylet was removed and 3 18 gauge core biopsy samples were obtained. Sonographic images of each pass were saved. A Gelfoam pledget was injected through the outer needle as it was withdrawn from the liver. Post procedure images demonstrate no evidence of immediate hemorrhage. A sterile dressing was applied. IMPRESSION: 1. Significant increased echotexture of the hepatic parenchyma consistent with hepatic steatosis. 2. Random liver biopsy as above. Performed and dictated at [facility]. Signed by: Augie Archibald 06/20/2023 12:32 PM Dictation workstation: [id number] [facility] Work Phone: [facility] Work Phone: Radiology Study observation (narrative) [facility] Work Phone: CBC panel Auto (Bld)on Erythrocyte distribution width (RBC) [Ratio] 13.7 % Normal 11.5-14.5 [facility] Comment on above: Performed By: #### 1 9123-9 #### YANIQUE CHARLES ([id number]) [facility] ([facility] [address] [place] [address] Hematocrit (Bld) [Volume fraction] 41.8 % Normal 36.0-46.0 [facility] Comment on above: Performed By: #### 1 9123-9 #### YANIQUE CHARLES ([id number]) [facility] ([facility] [address] [place] [address] Hemoglobin (Bld) [Mass/Vol] 13.2 g/dL Normal 12.0-16.0 [facility] Comment on above: Performed By: #### 1 9123-9 #### YANIQUE CHARLES ([id number]) [facility] ([facility] [address] [place] [address] MCH (RBC) [Entitic mass] 28.4 pg Normal 26.0-34.0 [facility] Comment on above: Performed By: #### 1 9123-9 #### YANIQUE CHARLES ([id number]) [facility] ([facility] [address] [place] [address] MCHC (RBC) [Mass/Vol] 31.6 g/dL Low 32.0-36.0 [facility] Comment on above: Performed By: #### 1 9123-9 #### YANIQUE CHARLES ([id number]) [facility] ([facility] [address] [place] [address] MCV (RBC) [Entitic vol] 90 fL Normal 80-100 [facility] Comment on above: Performed By: #### 1 9123-9 #### YANIQUE CHARLES ([id number]) [facility] ([facility] [address] [place] [address] Nucleated RBC/100 WBC (Bld) [Ratio] 0.0 /100 WBCs Normal 0.0-0.0 [facility] Comment on above: Performed By: #### 1 9123-9 #### YANIQUE CHARLES ([id number]) [facility] ([facility] [address] [place] [address] Platelets (Bld) [#/Vol] 232 x10*3/uL Normal 150-450 [facility] Comment on above: Performed By: #### 1 9123-9 #### YANIQUE CHARLES ([id number]) [facility] ([facility] [address] [place] [address] RBC (Bld) [#/Vol] 4.65 x10*6/uL Normal 4.00-5.20 [facility] Comment on above: Performed By: #### 1 9123-9 #### YANIQUE CHARLES ([id number]) [facility] ([facility] [address] [place] [address] WBC (Bld) [#/Vol] 8.5 x10*3/uL Normal 4.4-11.3 [facility] Comment on above: Performed By: #### 1 9123-9 #### YANIQUE CHARLES ([id number]) [facility] ([facility] [address] [place] [address] Erythrocyte distribution width (RBC) [Ratio] 13.7 % 11.5 - 14.5 % [facility] Hematocrit (Bld) [Volume fraction] 41.8 % 36.0 - 46.0 % [facility] Hemoglobin (Bld) [Mass/Vol] 13.2 g/dL 12.0 - 16.0 g/dL [facility] Interpretation and review of laboratory results Abnormal [facility] MCH (RBC) [Entitic mass] 28.4 pg 26.0 - 34.0 pg [facility] MCHC (RBC) [Mass/Vol] 31.6 g/dL Low 32.0 - 36.0 g/dL [facility] MCV (RBC) [Entitic vol] 90 fL 80 - 100 fL [facility] Nucleated RBC/100 WBC (Bld) [Ratio] 0.0 % [facility] Platelets (Bld) [#/Vol] 232 10*3/uL [facility] RBC (Bld) [#/Vol] 4.65 10*6/uL [facility] WBC (Bld) [#/Vol] 8.5 10*3/uL [facility] Coagulation tissue factor in ducedon 06-19-2023 PT Coag (PPP) [Time] 13.4 s High 9.8-12.8 [facility] Comment on above: Performed By: #### 1 9123-9 #### YANIQUE CHARLES ([id number]) [facility] ([facility] [address] [place] [address] Comprehensive metabolic 2000 panelon 06-19-2023 Albumin BCP dye [Mass/Vol] 3.8 g/dL Normal 3.4-5.0 [facility] Comment on above: Performed By: #### 1 9123-9 #### YANIQUE CHARLES ([id number]) [facility] ([facility] [address] [place] [address] ALP [Catalytic activity/Vol] 222 U/L High 33-110 [facility] Comment on above: Performed By: #### 1 9123-9 #### YANIQUE CHARLES ([id number]) [facility] ([facility] [address] [place] [address] ALT With P-5'-P [Catalytic activity/Vol] 232 U/L High 7-45 [facility] Comment on above: Result Comment: Ana M ents treated with Sulfasalazine may generate falsely decreased results for ALT. Performed By: #### 1 9123-9 #### YANIQUE CHARLES ([id number]) [facility] ([facility] [address] [place] [address] Anion gap [Moles/Vol] 11 mmol/L Normal 10-20 [facility] Comment on above: Performed By: #### 1 9123-9 #### YANIQUE CHARLES ([id number]) [facility] ([facility] [address] [place] [address] AST With P-5'-P [Catalytic activity/Vol] 265 U/L High 9-39 [facility] Comment on above: Performed By: #### 1 9123-9 #### YANIQUE CHARLES ([id number]) [facility] ([facility] [address] [place] [address] Bilirubin [Mass/Vol] 0.6 mg/dL Normal 0.0-1.2 [facility] Comment on above: Performed By: #### 1 9123-9 #### YANIQUE CHARLES ([id number]) [facility] ([facility] [address] [place] [address] Calcium [Mass/Vol] 9.0 mg/dL Normal 8.6-10.3 [facility] Comment on above: Performed By: #### 1 9123-9 #### YANIQUE CHARLES ([id number]) [facility] ([facility] [address] [place] [address] Chloride [Moles/Vol] 107 mmol/L Normal 98-107 [facility] Comment on above: Performed By: #### 1 9123-9 #### YANIQUE CHARLES ([id number]) [facility] ([facility] [address] [place] [address] CO2 [Moles/Vol] 23 mmol/L Normal 21-32 [facility] Comment on above: Performed By: #### 1 9123-9 #### YANIQUE CHARLES ([id number]) [facility] ([facility] [address] [place] [address] Creatinine [Mass/Vol] 0.74 mg/dL Normal 0.50-1.05 [facility] Comment on above: Performed By: #### 1 9123-9 #### YANIQUE CHARLES ([id number]) [facility] ([facility] [address] [place] [address] GFR/1.73 sq M.predicted MDRD (S/P/Bld) [Vol rate/Area] mL/min/{1.73_m2} Normal >60 [facility] Comment on above: Result Comment: Calc ulations of estimated GFR are performed using the 2020 CKD-EPI Study Refit equation without the race variable for the IDMS-Traceable creatinine methods. https://jasn.asnjournals.org/content/early//ASN.95438 47404 Performed By: #### 1 9123-9 #### YANIQUE CHARLES ([id number]) [facility] ([facility] [address] [place] [address] Glucose [Mass/Vol] 111 mg/dL High 74-99 [facility] Comment on above: Performed By: #### 1 9123-9 #### YANIQUE CHARLES ([id number]) [facility] ([facility] [address] [place] [address] Potassium [Moles/Vol] 3.6 mmol/L Normal 3.5-5.3 [facility] Comment on above: Performed By: #### 1 9123-9 #### YANIQUE CHARLES ([id number]) [facility] ([facility] [address] [place] [address] Protein [Mass/Vol] 7.2 g/dL Normal 6.4-8.2 [facility] Comment on above: Performed By: #### 1 9123-9 #### YANIQUE CHARLES ([id number]) [facility] ([facility] [address] [place] [address] Sodium [Moles/Vol] 137 mmol/L Normal 136-145 [facility] Comment on above: Performed By: #### 1 9123-9 #### YANIQUE CHARLES ([id number]) [facility] ([facility] [address] [place] [address] Urea nitrogen [Mass/Vol] 10 mg/dL Normal 6-23 [facility] Comment on above: Performed By: #### 1 9123-9 #### YANIQUE CHARLES ([id number]) [facility] ([facility] [address] [place] [address] Albumin BCP dye [Mass/Vol] 3.8 g/dL 3.4 - 5.0 g/dL [facility] ALP [Catalytic activity/Vol] 222 U/L High 33 - 110 U/L [facility] ALT With P-5'-P [Catalytic activity/Vol] 232 U/L High 7 - 45 U/L [facility] Comment on above: Patients treated wit h Sulfasalazine may generate falsely decreased results for ALT. Anion gap [Moles/Vol] 11 mmol/L 10 - 2 0 mmol/L [facility] AST With P-5'-P [Catalytic activity/Vol] 265 U/L High 9 - 39 U/L [facility] Bilirubin [Mass/Vol] 0.6 mg/dL 0.0 - 1 .2 mg/dL [facility] Calcium [Mass/Vol] 9.0 mg/dL 8.6 - 10. 3 mg/dL [facility] Chloride [Moles/Vol] 107 mmol/L 98 - 10 7 mmol/L [facility] CO2 [Moles/Vol] 23 mmol/L 21 - 32 mmol/L [facility] Creatinine [Mass/Vol] 0.74 mg/dL 0.50 - 1.05 mg/dL [facility] eGFR - PINF [facility] Comment on above: Calculations of sherwin mated GFR are performed using the 2020 CKD-EPI Study Refit equation without the race variable for the IDMS-Traceable creatinine methods. https://jasn.asnjournals.org/content/early//ASN.50984 93254 Glucose [Mass/Vol] 111 mg/dL High 74 - 99 mg/dL [facility] Interpretation and review of laboratory results Abnormal [facility] Potassium [Moles/Vol] 3.6 mmol/L 3.5 - 5.3 mmol/L [facility] Protein [Mass/Vol] 7.2 g/dL 6.4 - 8.2 g/dL [facility] Sodium [Moles/Vol] 137 mmol/L 136 - 145 mmol/L [facility] Urea nitrogen [Mass/Vol] 10 mg/dL 6 - 23 mg/dL [facility] EGDon 06-19-2023 Esophagogastroduodenos copy Table formatting from the original result was not included. Normal [facility] EGD Study observation Narrat ivrafaelon 06-19-2023 Table formatting fro m the original result was not included. Impression The cricopharynx, upper third of the esophagus, middle third of the esophagus, lower third of the esophagus, GE junction and Z-line appeared normal. Moderate abnormal mucosa in the body of the stomach and antrum, consistent with gastritis; performed cold forceps biopsy Mild and mosaic portal hypertensive gastropathy in the body of the stomach The duodenal bulb and 2nd part of the duodenum appeared normal. Findings The cricopharynx, upper third of the esophagus, middle third of the esophagus, lower third of the esophagus, GE junction and Z-line appeared normal. Moderate, patchy edematous and erythematous mucosa in the body of the stomach and antrum, consistent with gastritis; performed cold forceps biopsy; Mild, diffuse and mosaic portal hypertensive gastropathy in the body of the stomach The duodenal bulb and 2nd part of the duodenum appeared normal. Recommendation Await pathology results Indication RUQ abdominal pain Staff Staff Role No Staff Documented Medications See Anesthesia Record. Preprocedure A history and physical has been performed, and patient medication allergies have been reviewed. The patient's tolerance of previous anesthesia has been reviewed. The risks and benefits of the procedure and the sedation options and risks were discussed with the patient. All questions were answered and informed consent obtained. Details of the Procedure The patient underwent monitored anesthesia care, which was administered by an anesthesia professional. The patient's blood pressure, ECG, ETCO2, heart rate, level of consciousness, oxygen and respirations were monitored throughout the procedure. The scope was introduced through the mouth and advanced to the second part of the duodenum. Retroflexion was performed in the cardia. Prior to the procedure, the patient's H. Pylori status was unknown. The patient experienced no blood loss. The procedure was not difficult. The patient tolerated the procedure well. There were no apparent adverse events. Events Procedure Events Event Event Time ENDO SCOPE IN TIME 06/19/2023 9:42 AM Specimens ID Type Source Tests Collected by Time 1 : gastritis Tissue STOMACH BODY/CORPUS BIOPSY SURGICAL PATHOLOGY EXAM Ayush Moody 06/19/2023 0945 Procedure Location [facility] Observation [address] [facility] [address] Referring Provider Desmond Lai PA-C [address] [place] [address] Procedure Provider No name on file [facility] Work Phone: Radiology Study observation (narrative) [facility] Work Phone: EGD Study observation Narrat iveOrdered By: Deirdre Krause on 06-19-2023 [facility] Work Phone: Glucose Test strip manual (B ld) [Mass/Vol]on 06-19-2023 Glucose [Mass/Vol] 132 mg/dL High 74-99 [facility] Comment on above: Performed By: #### 2 777-1 #### YANIQUE CHARLES ([id number]) [facility] ([facility] [address] [place] [address] Glucose [Mass/Vol] 132 mg/dL High 74 - 99 mg/dL [facility] Interpretation and review of laboratory results Abnormal [facility] Glucose [Mass/Vol] 153 mg/dL High 74-99 [facility] Comment on above: Performed By: #### 1 9123-9 #### YANIQUE CHARLES ([id number]) [facility] ([facility] [address] [place] [address] Glucose [Mass/Vol] 153 mg/dL High 74 - 99 mg/dL [facility] Interpretation and review of laboratory results Abnormal [facility] Glucose [Mass/Vol] 117 mg/dL High 74-99 [facility] Comment on above: Performed By: #### 1 9123-9 #### YANIQUE CHARLES ([id number]) [facility] ([facility] [address] [place] [address] Glucose [Mass/Vol] 123 mg/dL High 74-99 [facility] Comment on above: Performed By: #### 1 9123-9 #### YANIQUE CHARLES ([id number]) [facility] ([facility] [address] [place] [address] Glucose [Mass/Vol] 117 mg/dL High 74 - 99 mg/dL [facility] Interpretation and review of laboratory results Abnormal [facility] Glucose [Mass/Vol] 123 mg/dL High 74 - 99 mg/dL [facility] Interpretation and review of laboratory results Abnormal [facility] Glucose [Mass/Vol] 110 mg/dL High 74-99 [facility] Comment on above: Performed By: #### 1 9123-9 #### YANIQUE CHARLES ([id number]) [facility] ([facility] [address] [place] [address] Glucose [Mass/Vol] 110 mg/dL High 74-99 [facility] Comment on above: Performed By: #### 2 341-6 #### YANIQUE CHARLES ([id number]) [facility] ([facility] [address] [place] [address] Glucose [Mass/Vol] 110 mg/dL High 74 - 99 mg/dL [facility] Interpretation and review of laboratory results Abnormal [facility] Glucose [Mass/Vol] 121 mg/dL High 74-99 [facility] Comment on above: Performed By: #### 2 341-6 #### YANIQUE CHARLES ([id number]) [facility] ([facility] [address] [place] [address] Glucose [Mass/Vol] 110 mg/dL High 74 - 99 mg/dL [facility] Interpretation and review of laboratory results Abnormal [facility] Glucose [Mass/Vol] 121 mg/dL High 74 - 99 mg/dL [facility] Interpretation and review of laboratory results Abnormal [facility] Glucose [Mass/Vol] 119 mg/dL High 74-99 [facility] Comment on above: Performed By: #### 2 341-6 #### YANIQUE CHARLES ([id number]) [facility] ([facility] [address] [place] [address] Glucose [Mass/Vol] 119 mg/dL High 74 - 99 mg/dL [facility] Interpretation and review of laboratory results Abnormal [facility] Glucose [Mass/Vol] 176 mg/dL High 74-99 [facility] Comment on above: Performed By: #### 2 341-6 #### YANIQUE CHARLES ([id number]) [facility] ([facility] [address] [place] [address] Magnesiumon 06-19-2023 Magnesium [Mass/Vol] 1.88 mg/dL Normal 1.60-2.40 [facility] Comment on above: Performed By: #### 1 9123-9 #### YANIQUE CHARLES ([id number]) [facility] ([facility] [address] [place] [address] Magnesium [Mass/Vol] 1.88 mg/dL 1.60 - 2.40 mg/dL [facility] Magnesium [Mass/Vol]on Interpretation and review of laboratory results Normal [facility] No Panel Informationon [facility] PT Coag (PPP) [Time]on INR Coag (PPP) [Relative time] 1.2 High 0.9-1.1 [facility] Comment on above: Performed By: #### 1 9123-9 #### YANIQUE CHARLES ([id number]) [facility] ([facility] [address] [place] [address] INR Coag (PPP) [Relative time] 1.2 {INR} High 0.9 - 1.1 [facility] Interpretation and review of laboratory results Abnormal [facility] Protime-INRon 06-19-2023 PT Coag (PPP) [Time] 13.4 s High [facility] Surgical pathology studyon 0 06-19-2023 Surgical pathology study Pathology report.total SEE COMMENT Surgical Pathology Case: [id number] Authorizing Provider: Deirdre Krause MD Collected: 06/19/2023 0945 Ordering Location: [facility] Received: 06/19/2023 1000 [address] South Observation Pathologist: Raul Nance MD Specimen: STOMACH BODY/CORPUS BIOPSY, gastritis Path report.final diagnosis SEE COMMENT A. STOMACH BODY/CORPUS BIOPSY: Mild reactive gastritis/gastropathy No H. pylori organisms are identified Laboratory comment By the signature on this report, the individual or group listed as making the Final Interpretation/Diagnos is certifies that they have reviewed this case. Path report.relevant Hx RUQ abdominal pain [R10.11] Path report.gross observation SEE COMMENT Received in formalin, labeled with the patient's name and hospital number and gastritis, are 2 fragments of mayo, soft tissue aggregating to 0.3 x 0.3 cm. The specimen is submitted in toto in one cassette. [facility] US Abdomen RUQon 06-19-2023 Enlarged liver with diffuse fatty infiltration. The patient is status post cholecystectomy. Overall, stable appearance when compared to 05/23/2023. MACRO: None Signed by: Jorge Wilson 06/19/2023 6:38 AM Dictation workstation: [id number] MMODAL Interpreted By: Jorge Wilson, STUDY: US GALLBLADDER; 06/18/2023 6:55 pm INDICATION: Signs/Symptoms:Right upper quadrant pain. COMPARISON: 05/23/2023 ACCESSION NUMBER(S): [id number] ORDERING CLINICIAN: KATIE GARLAND TECHNIQUE: Multiple images of the right upper quadrant were obtained. FINDINGS: LIVER: The liver measures 22.2 cm and is diffusely echogenic in appearance, consistent with diffuse fatty infiltration. The resulting increased beam attenuation thereby limiting evaluation of the liver for focal lesions. Within the limitations, no focal lesions are seen. GALLBLADDER: Surgically absent. BILE DUCTS: No evidence of intra or extrahepatic biliary dilatation is identified; the common bile duct measures .5 cm. PANCREAS: The visualized pancreas is unremarkable in appearance. RIGHT KIDNEY: The right kidney measures 11.6 cm in length. The renal cortical echogenicity and thickness are within normal limit. No hydronephrosis or renal calculi are seen. MMODAL Jorge Wilson MD - 06/19/2023 Interpreted By: Jorge Wilson, STUDY: US GALLBLADDER; 06/18/2023 6:55 pm INDICATION: Signs/Symptoms:Right upper quadrant pain. COMPARISON: 05/23/2023 ACCESSION NUMBER(S): [id number] ORDERING CLINICIAN: KATIE GARLAND TECHNIQUE: Multiple images of the right upper quadrant were obtained. FINDINGS: LIVER: The liver measures 22.2 cm and is diffusely echogenic in appearance, consistent with diffuse fatty infiltration. The resulting increased beam attenuation thereby limiting evaluation of the liver for focal lesions. Within the limitations, no focal lesions are seen. GALLBLADDER: Surgically absent. BILE DUCTS: No evidence of intra or extrahepatic biliary dilatation is identified; the common bile duct measures .5 cm. PANCREAS: The visualized pancreas is unremarkable in appearance. RIGHT KIDNEY: The right kidney measures 11.6 cm in length. The renal cortical echogenicity and thickness are within normal limit. No hydronephrosis or renal calculi are seen. IMPRESSION: Enlarged liver with diffuse fatty infiltration. The patient is status post cholecystectomy. Overall, stable appearance when compared to 05/23/2023. MACRO: None Signed by: Jorge Wilson 06/19/2023 6:38 AM Dictation workstation: [id number] [facility] Work Phone: US Abdomen RUQOrdered By: Ana Wilson on 06-19-2023 [facility] Work Phone: US GUIDED NEEDLE LIVER BIOPS Yon 06-19-2023 US GUIDED NEEDLE LIVER BIOPSY Interpreted By: Augie Archibald, STUDY: US GUIDED NEEDLE LIVER BIOPSY; 06/20/2023 11:16 am INDICATION: Signs/Symptoms:LIver biopsy for Portal HTN on EGD. COMPARISON: 06/16/2023. ACCESSION NUMBER(S): [id number] ORDERING CLINICIAN: PORFIRIO NORTON TECHNIQUE: TIPPLE OILER: Augie Archibald MD CONSENT: The patient was informed of the nature of the proposed procedure. The purposes, alternatives, risks, and benefits were explained and discussed. All questions were answered and consent was obtained. SEDATION: Moderate conscious intravenous sedation services (supervision of administration, induction, and maintenance) were provided by the physician performing the procedure with intravenous fentanyl and versed. Total intra-service sedation time from 9012-1108 hours (10 minutes). The physician was assisted by an independent trained observer, an interventional radiology nurse, in the continuous monitoring of the patient level of consciousness and physiologic status. MEDICATION/CONTRAST: None additional TIME OUT: A time out was performed immediately prior to the procedure start with interventional team, correctly identifying the patient using multiple identifiers and ensuring the appropriate procedure and anatomy (including laterality, if applicable) were identified. The procedure consent form and all relevant laboratory and imaging tests were reviewed. The need for antibiotic administration or patient or procedure specific safety precautions or equipment was reviewed. COMPLICATIONS: None immediate FINDINGS: The patient was positioned supine on the ultrasound table. Limited sonographic images of the liver were obtained for the purpose of needle guidance. These demonstrate diffuse increased echotexture consistent with hepatic steatosis. No focal lesion seen on limited imaging of the right hepatic lobe. The right upper abdomen was then prepped and draped in the usual sterile fashion. The skin and subcutaneous tissues were then anesthetized with 1% lidocaine. A small cutaneous incision was made to allow for passage of a 17 gauge coaxial needle. Next, under direct sonographic guidance, the needle was advanced into the liver and immediately adjacent to the area targeted for biopsy. Once positioned appropriately, the inner stylet was removed and 3 18 gauge core biopsy samples were obtained. Sonographic images of each pass were saved. A Gelfoam pledget was injected through the outer needle as it was withdrawn from the liver. Post procedure images demonstrate no evidence of immediate hemorrhage. A sterile dressing was applied. IMPRESSION: 1. Significant increased echotexture of the hepatic parenchyma consistent with hepatic steatosis. 2. Random liver biopsy as above. Performed and dictated at [facility]. Signed by: Augie Archibald 06/20/2023 12:32 PM Dictation workstation: [id number] Normal [facility] Albumin , Urine Randomon Albumin/Creatinine DL <= 20 mg/L (U) [Mass ratio] 25.7 mg/g [facility] Albumin/Creatinine DL <= 20 mg/L (U) [Mass ratio]on 06-18-2023 Albumin DL <= 20 mg/L (U) [Mass/Vol] 8.3 mg/L Not established [facility] Creatinine (U) [Mass/Vol] 32.3 mg/dL 20.0 - 320.0 mg/dL [facility] CBC panel Auto (Bld)on 06-18 Erythrocyte distribution width (RBC) [Ratio] 13.8 % Normal 11.5-14.5 [facility] Comment on above: Performed By: #### 5 8410-2 #### YANIQUE CHARLES ([id number]) [facility] ([facility] [address] [place] [address] Hematocrit (Bld) [Volume fraction] 43.4 % Normal 36.0-46.0 [facility] Comment on above: Performed By: #### 5 8410-2 #### YANIQUE CHARLES ([id number]) [facility] ([facility] [address] [place] [address] Hemoglobin (Bld) [Mass/Vol] 13.3 g/dL Normal 12.0-16.0 [facility] Comment on above: Performed By: #### 5 8410-2 #### YANIQUE CHARLES ([id number]) [facility] ([facility]) [address] [place] [address] MCH (RBC) [Entitic mass] 28.7 pg Normal 26.0-34.0 [facility] Comment on above: Performed By: #### 5 8410-2 #### YANIQUE CHARLES ([id number]) [facility] ([facility]) [address] [place] [address] MCHC (RBC) [Mass/Vol] 30.6 g/dL Low 32.0-36.0 [facility] Comment on above: Performed By: #### 5 8410-2 #### YANIQUE CHARLES ([id number]) [facility] ([facility]) [address] [place] [address] MCV (RBC) [Entitic vol] 94 fL Normal 80-100 [facility] Comment on above: Performed By: #### 5 8410-2 #### YANIQUE CHARLES ([id number]) [facility] ([facility] [address] [place] [address] Nucleated RBC/100 WBC (Bld) [Ratio] 0.0 /100 WBCs Normal 0.0-0.0 [facility] Comment on above: Performed By: #### 5 8410-2 #### YANIQUE CHARLES ([id number]) [facility] ([facility]) [address] [place] [address] Platelets (Bld) [#/Vol] 200 x10*3/uL Normal 150-450 [facility] Comment on above: Performed By: #### 5 8410-2 #### YANIQUE CHARLES ([id number]) [facility] ([facility]) [address] [place] [address] RBC (Bld) [#/Vol] 4.63 x10*6/uL Normal 4.00-5.20 [facility] Comment on above: Performed By: #### 5 8410-2 #### YANIQUE CHARLES ([id number]) [facility] ([facility] [address] [place] [address] WBC (Bld) [#/Vol] 8.5 x10*3/uL Normal 4.4-11.3 [facility] Comment on above: Performed By: #### 5 8410-2 #### YANIQUE CHARLES ([id number]) [facility] ([facility]) [address] [place] [address] Erythrocyte distribution width (RBC) [Ratio] 13.8 % 11.5 - 14.5 % [facility] Hematocrit (Bld) [Volume fraction] 43.4 % 36.0 - 46.0 % [facility] Hemoglobin (Bld) [Mass/Vol] 13.3 g/dL 12.0 - 16.0 g/dL [facility] Interpretation and review of laboratory results Abnormal [facility] MCH (RBC) [Entitic mass] 28.7 pg 26.0 - 34.0 pg [facility] MCHC (RBC) [Mass/Vol] 30.6 g/dL Low 32.0 - 36.0 g/dL [facility] MCV (RBC) [Entitic vol] 94 fL 80 - 100 fL [facility] Nucleated RBC/100 WBC (Bld) [Ratio] 0.0 % [facility] Platelets (Bld) [#/Vol] 200 10*3/uL [facility] RBC (Bld) [#/Vol] 4.63 10*6/uL [facility] WBC (Bld) [#/Vol] 8.5 10*3/uL [facility] Comprehensive metabolic 2000 panelon 06-18-2023 Albumin BCP dye [Mass/Vol] 4.0 g/dL Normal 3.4-5.0 [facility] Comment on above: Performed By: #### 2 341-6 #### YANIQUE CHARLES ([id number]) [facility] ([facility]) [id number] [place] [address] ALP [Catalytic activity/Vol] 224 U/L High 33-110 [facility] Comment on above: Performed By: #### 2 341-6 #### YANIQUE CHARLES ([id number]) [facility] ([facility]) [address] [place] [address] ALT With P-5'-P [Catalytic activity/Vol] 230 U/L High 7-45 [facility] Comment on above: Result Comment: Ana M ents treated with Sulfasalazine may generate falsely decreased results for ALT. Performed By: #### 2 341-6 #### YANIQUE CHARLES ([id number]) [facility] ([facility] [id number] [place] [address] Anion gap [Moles/Vol] 14 mmol/L Normal 10-20 [facility] Comment on above: Performed By: #### 2 341-6 #### YANIQUE CHARLES ([id number]) [facility] ([facility]) [address] [place] [address] AST With P-5'-P [Catalytic activity/Vol] 258 U/L High 9-39 [facility] Comment on above: Result Comment: MILD HEMOLYSIS DETECTED. The result may be falsely elevated due to hemolysis or other interferents. Clinical correlation is recommended. Repeat testing may be considered. Performed By: #### 2 341-6 #### YANIQUE CHARLES ([id number]) [facility] ([facility]) [address] [place] [address] Bilirubin [Mass/Vol] 0.7 mg/dL Normal 0.0-1.2 [facility] Comment on above: Performed By: #### 2 341-6 #### YANIQUE CHARLES ([id number]) [facility] ([facility]) [address] [place] [address] Calcium [Mass/Vol] 9.4 mg/dL Normal 8.6-10.3 [facility] Comment on above: Performed By: #### 2 341-6 #### YANIQUE CHARLES ([id number]) [facility] ([facility] [address] [place] [address] Chloride [Moles/Vol] 105 mmol/L Normal 98-107 [facility] Comment on above: Performed By: #### 2 341-6 #### YANIQUE CHARLES ([id number]) [facility] ([facility] [address] [place] [address] CO2 [Moles/Vol] 19 mmol/L Low 21-32 [facility] Comment on above: Performed By: #### 2 341-6 #### YANIQUE CHARLES ([id number]) [facility] ([facility] [address] [place] [address] Creatinine [Mass/Vol] 0.70 mg/dL Normal 0.50-1.05 [facility] Comment on above: Performed By: #### 2 341-6 #### YANIQUE CHARLES ([id number]) [facility] ([facility] [address] [place] [address] GFR/1.73 sq M.predicted MDRD (S/P/Bld) [Vol rate/Area] mL/min/{1.73_m2} Normal >60 [facility] Comment on above: Result Comment: Calc ulations of estimated GFR are performed using the 2020 CKD-EPI Study Refit equation without the race variable for the IDMS-Traceable creatinine methods. https://jasn.asnjournals.org/content//ASN.48820 75872 Performed By: #### 2 341-6 #### YANIQUE CHARLES ([id number]) [facility] ([facility] [address] [place] [address] Glucose [Mass/Vol] 139 mg/dL High 74-99 [facility] Comment on above: Performed By: #### 2 341-6 #### YANIUQE CHARLES ([id number]) [facility] ([facility] [address] [place] [address] Potassium [Moles/Vol] 3.8 mmol/L Normal 3.5-5.3 [facility] Comment on above: Result Comment: MILD HEMOLYSIS DETECTED. The result may be falsely elevated due to hemolysis or other interferents. Clinical correlation is recommended. Repeat testing may be considered. Performed By: #### 2 341-6 #### YANIQUE CHARLES ([id number]) [facility] ([facility]) [address] [place] [address] Protein [Mass/Vol] 7.2 g/dL Normal 6.4-8.2 [facility] Comment on above: Performed By: #### 2 341-6 #### YANIQUE CHARLES ([id number]) [facility] ([facility] [address] [place] [address] Sodium [Moles/Vol] 134 mmol/L Low 136-145 [facility] Comment on above: Performed By: #### 2 341-6 #### YANIQUE CHARLES ([id number]) [facility] ([facility]) [address] [place] [address] Urea nitrogen [Mass/Vol] 10 mg/dL Normal 6-23 [facility] Comment on above: Performed By: #### 2 341-6 #### YANIQUE CHARLES ([id number]) [facility] ([facility] [address] [place] [address] Albumin BCP dye [Mass/Vol] 4.0 g/dL 3.4 - 5.0 g/dL [facility] ALP [Catalytic activity/Vol] 224 U/L High 33 - 110 U/L [facility] ALT With P-5'-P [Catalytic activity/Vol] 230 U/L High 7 - 45 U/L [facility] Comment on above: Patients treated wit h Sulfasalazine may generate falsely decreased results for ALT. Anion gap [Moles/Vol] 14 mmol/L 10 - 2 0 mmol/L [facility] AST With P-5'-P [Catalytic activity/Vol] 258 U/L High 9 - 39 U/L [facility] Comment on above: MILD HEMOLYSIS DETEC EVELYN. The result may be falsely elevated due to hemolysis or other interferents. Clinical correlation is recommended. Repeat testing may be considered. Bilirubin [Mass/Vol] 0.7 mg/dL 0.0 - 1 .2 mg/dL [facility] Calcium [Mass/Vol] 9.4 mg/dL 8.6 - 10. 3 mg/dL [facility] Chloride [Moles/Vol] 105 mmol/L 98 - 10 7 mmol/L [facility] CO2 [Moles/Vol] 19 mmol/L Low 21 - 32 mmol/L [facility] Creatinine [Mass/Vol] 0.70 mg/dL 0.50 - 1.05 mg/dL [facility] eGFR - PINF [facility] Comment on above: Calculations of sherwin mated GFR are performed using the 2020 CKD-EPI Study Refit equation without the race variable for the IDMS-Traceable creatinine methods. https://jasn.asnjournals.org/content//ASN.19939 17030 Glucose [Mass/Vol] 139 mg/dL High 74 - 99 mg/dL [facility] Interpretation and review of laboratory results Abnormal [facility] Potassium [Moles/Vol] 3.8 mmol/L 3.5 - 5.3 mmol/L [facility] Comment on above: MILD HEMOLYSIS DETEC EVELYN. The result may be falsely elevated due to hemolysis or other interferents. Clinical correlation is recommended. Repeat testing may be considered. Protein [Mass/Vol] 7.2 g/dL 6.4 - 8.2 g/dL [facility] Sodium [Moles/Vol] 134 mmol/L Low 136 - 145 mmol/L [facility] Urea nitrogen [Mass/Vol] 10 mg/dL 6 - 23 mg/dL [facility] Free T4 [Mass/Vol]on Interpretation and review of laboratory results Abnormal [facility] Thyroxine Free testi ng is performed using different testing methodology at [facility] than at other [facility]. Direct result comparisons should only be made within the same method. Biotin can cause falsely elevated free T4 results. Patients taking a Biotin dose of up to 10 mg/day should refrain from taking Biotin for 24 hours before sample collection. Patient taking a Biotin dose of >10 mg/day should consult with their physician or the laboratory before the blood draw. [facility] Glucose Test strip manual (B ld) [Mass/Vol]on 06-18-2023 Glucose [Mass/Vol] 176 mg/dL High 74 - 99 mg/dL [facility] Interpretation and review of laboratory results Abnormal [facility] Glucose [Mass/Vol] 195 mg/dL High 74-99 [facility] Comment on above: Performed By: #### 2 341-6 #### YANIQUE CHARLES ([id number]) [facility] ([facility] [address] [place] [address] Glucose [Mass/Vol] 195 mg/dL High 74 - 99 mg/dL [facility] Interpretation and review of laboratory results Abnormal [facility] Glucose [Mass/Vol] 113 mg/dL High 74-99 [facility] Comment on above: Performed By: #### 2 341-6 #### YANIQUE CHARLES ([id number]) [facility] ([facility] [address] [place] [address] Glucose [Mass/Vol] 113 mg/dL High 74 - 99 mg/dL [facility] Interpretation and review of laboratory results Abnormal [facility] Glucose [Mass/Vol] 88 mg/dL Normal 74-99 [facility] Comment on above: Performed By: #### 2 341-6 #### YANIQUE CHARLES ([id number]) [facility] ([facility] [address] [place] [address] Glucose [Mass/Vol] 88 mg/dL 74 - 99 mg/dL [facility] Interpretation and review of laboratory results Normal [facility] [facility] Glucose [Mass/Vol] 176 mg/dL High 74-99 [facility] Comment on above: Performed By: #### 2 341-6 #### YANIQUE CHARLES ([id number]) [facility] ([facility] [address] [place] [address] Glucose [Mass/Vol] 176 mg/dL High 74 - 99 mg/dL [facility] Interpretation and review of laboratory results Abnormal [facility] Glucose [Mass/Vol] 171 mg/dL High 74-99 [facility] Comment on above: Performed By: #### 5 8410-2 #### YANIQUE CHARLES ([id number]) [facility] ([facility] [address] [place] [address] Glucose [Mass/Vol] 171 mg/dL High 74 - 99 mg/dL [facility] Interpretation and review of laboratory results Abnormal [facility] Glucose [Mass/Vol] 126 mg/dL High 74-99 [facility] Comment on above: Performed By: #### 5 8410-2 #### YANIQUE CHARLES ([id number]) [facility] ([facility] [address] [place] [address] Glucose [Mass/Vol] 126 mg/dL High 74 - 99 mg/dL [facility] Interpretation and review of laboratory results Abnormal [facility] Magnesiumon 06-18-2023 Magnesium [Mass/Vol] 2.05 mg/dL Normal 1.60-2.40 [facility] Comment on above: Performed By: #### 5 8410-2 #### YANIQUE CHARLES ([id number]) [facility] ([facility]) [address] [place] [address] Magnesium [Mass/Vol] 2.05 mg/dL 1.60 - 2.40 mg/dL [facility] Magnesium [Mass/Vol]on 06-18 Interpretation and review of laboratory results Normal [facility] No Panel Informationon 06-18 [facility] T4, freeon 06-18-2023 Free T4 [Mass/Vol] 1.15 ng/dL High 0.61 - 1. 12 ng/dL [facility] TPO Ab Qnon 06-18-2023 Interpretation and review of laboratory results Normal [facility] Negative: <=60 U/mL Positive: >60 U/mL [facility] Thyroid Peroxidase Antibodyo n 06-18-2023 TPO Ab Qn 58 [IU]/mL NINF [facility] Thyroperoxidase Abon 024 TPO Ab Qn 58 [IU]/mL Normal <=60 [facility] Comment on above: Order Comment: Negat rehan: <=60 U/mLPositive: >60 U/mL Performed By: #### 2 341-6 #### YANIQUE CHARLES ([id number]) [facility] ([facility]) [address] [place] [address] Thyroxine.freeon 06-18-2023 Free T4 [Mass/Vol] 1.15 ng/dL High 0.61-1.12 [facility] Comment on above: Order Comment: Thyro xine Free testing is performed using different testing methodology at [facility] than at other [facility]. Direct result comparisons should only be made within the same method.Biotin can cause falsely elevated free T4 results. Patients taking a Biotin dose of up to 10 mg/day should refrain from taking Biotin for 24 hours before sample collection. Patient taking a Biotin dose of >10 mg/day should consult with their physician or the laboratory before the blood draw. Performed By: #### 5 8410-2 #### YANIQUE CHARLES ([id number]) [facility] ([facility]) [address] [place] [address] US Abdomen RUQon 06-18-2023 Radiology Study observation (narrative) [facility] Work Phone: US GALLBLADDERon 06-18-2023 US GALLBLADDER Interpreted By: Jorge Wilson, STUDY: US GALLBLADDER; 06/18/2023 6:55 pm INDICATION: Signs/Symptoms:Right upper quadrant pain. COMPARISON: 05/23/2023 ACCESSION NUMBER(S): [id number] ORDERING CLINICIAN: KATIE GARLAND TECHNIQUE: Multiple images of the right upper quadrant were obtained. FINDINGS: LIVER: The liver measures 22.2 cm and is diffusely echogenic in appearance, consistent with diffuse fatty infiltration. The resulting increased beam attenuation thereby limiting evaluation of the liver for focal lesions. Within the limitations, no focal lesions are seen. GALLBLADDER: Surgically absent. BILE DUCTS: No evidence of intra or extrahepatic biliary dilatation is identified; the common bile duct measures .5 cm. PANCREAS: The visualized pancreas is unremarkable in appearance. RIGHT KIDNEY: The right kidney measures 11.6 cm in length. The renal cortical echogenicity and thickness are within normal limit. No hydronephrosis or renal calculi are seen. IMPRESSION: Enlarged liver with diffuse fatty infiltration. The patient is status post cholecystectomy. Overall, stable appearance when compared to 05/23/2023. MACRO: None Signed by: Jorge Wilson 06/19/2023 6:38 AM Dictation workstation: [id number] Normal [facility] Ammoniaon 06-17-2023 Ammonia (P) [Moles/Vol] 37 umol/L Normal 16-53 [facility] Comment on above: Performed By: #### 1 6362-6 #### YANIQUE CHARLES ([id number]) [facility] ([facility]) [address] [place] [address] Ammonia (P) [Moles/Vol] 37 umol/L 16 - 53 umol/L [facility] Ammonia (P) [Moles/Vol]on Interpretation and review of laboratory results Normal [facility] CBC panel Auto (Bld)on 06-17 Erythrocyte distribution width (RBC) [Ratio] 13.5 % Normal 11.5-14.5 [facility] Comment on above: Performed By: #### 5 8410-2 #### YANIQUE CHARLES ([id number]) [facility] ([facility]) [address] [place] [address] Hematocrit (Bld) [Volume fraction] 37.8 % Normal 36.0-46.0 [facility] Comment on above: Performed By: #### 5 8410-2 #### YANIQUE CHARLES ([id number]) [facility] ([facility]) [address] [place] [address] Hemoglobin (Bld) [Mass/Vol] 12.2 g/dL Normal 12.0-16.0 [facility] Comment on above: Performed By: #### 5 8410-2 #### YANIQUE CHARLES ([id number]) [facility] ([facility]) [address] [place] [address] MCH (RBC) [Entitic mass] 28.6 pg Normal 26.0-34.0 [facility] Comment on above: Performed By: #### 5 8410-2 #### YANIQUE CHARLES ([id number]) [facility] ([facility]) [address] [place] [address] MCHC (RBC) [Mass/Vol] 32.3 g/dL Normal 32.0-36.0 [facility] Comment on above: Performed By: #### 5 8410-2 #### YANIQUE CHARLES ([id number]) [facility] ([facility]) [address] [place] [address] MCV (RBC) [Entitic vol] 89 fL Normal 80-100 [facility] Comment on above: Performed By: #### 5 8410-2 #### YANIQUE CHARLES ([id number]) [facility] ([facility]) [address] [place] [address] Nucleated RBC/100 WBC (Bld) [Ratio] 0.0 /100 WBCs Normal 0.0-0.0 [facility] Comment on above: Performed By: #### 5 8410-2 #### YANIQUE CHARLES ([id number]) [facility] ([facility]) [address] [place] [address] Platelets (Bld) [#/Vol] 203 x10*3/uL Normal 150-450 [facility] Comment on above: Performed By: #### 5 8410-2 #### YANIQUE CHARLES ([id number]) [facility] ([facility]) [address] [place] [address] RBC (Bld) [#/Vol] 4.27 x10*6/uL Normal 4.00-5.20 [facility] Comment on above: Performed By: #### 5 8410-2 #### YANIQUE CHARLES ([id number]) [facility] ([facility]) [address] [place] [address] WBC (Bld) [#/Vol] 9.2 x10*3/uL Normal 4.4-11.3 [facility] Comment on above: Performed By: #### 5 8410-2 #### YANIQUE CHARLES ([id number]) [facility] ([facility]) [address] [place] [address] Erythrocyte distribution width (RBC) [Ratio] 13.5 % 11.5 - 14.5 % [facility] Hematocrit (Bld) [Volume fraction] 37.8 % 36.0 - 46.0 % [facility] Hemoglobin (Bld) [Mass/Vol] 12.2 g/dL 12.0 - 16.0 g/dL [facility] Interpretation and review of laboratory results Normal [facility] MCH (RBC) [Entitic mass] 28.6 pg 26.0 - 34.0 pg [facility] MCHC (RBC) [Mass/Vol] 32.3 g/dL 32.0 - 36.0 g/dL [facility] MCV (RBC) [Entitic vol] 89 fL 80 - 100 fL [facility] Nucleated RBC/100 WBC (Bld) [Ratio] 0.0 % [facility] Platelets (Bld) [#/Vol] 203 10*3/uL [facility] RBC (Bld) [#/Vol] 4.27 10*6/uL [facility] WBC (Bld) [#/Vol] 9.2 10*3/uL [facility] Comprehensive metabolic 2000 panelon 06-17-2023 Albumin BCP dye [Mass/Vol] 3.6 g/dL Normal 3.4-5.0 [facility] Comment on above: Performed By: #### 2 4323-8 #### YANIQUE CHARLES ([id number]) [facility] ([facility]) [address] [place] [address] ALP [Catalytic activity/Vol] 195 U/L High 33-110 [facility] Comment on above: Performed By: #### 2 4323-8 #### YANIQUE CHARLES ([id number]) [facility] ([facility]) [address] [place] [address] ALT With P-5'-P [Catalytic activity/Vol] 214 U/L High 7-45 [facility] Comment on above: Result Comment: Ana M ents treated with Sulfasalazine may generate falsely decreased results for ALT. Performed By: #### 2 4323-8 #### YANIQUE CHARLES ([id number]) [facility] ([facility]) [address] [place] [address] Anion gap [Moles/Vol] 15 mmol/L Normal 10-20 [facility] Comment on above: Performed By: #### 2 4323-8 #### YANIQUE CHARLES ([id number]) [facility] ([facility]) [address] [place] [address] AST With P-5'-P [Catalytic activity/Vol] 267 U/L High 9-39 [facility] Comment on above: Performed By: #### 2 4323-8 #### YANIQUE CHARLES ([id number]) [facility] ([facility]) [address] [place] [address] Bilirubin [Mass/Vol] 0.5 mg/dL Normal 0.0-1.2 [facility] Comment on above: Performed By: #### 2 4323-8 #### YANIQUE CHARLES ([id number]) [facility] ([facility]) [address] [place] [address] Calcium [Mass/Vol] 8.7 mg/dL Normal 8.6-10.3 [facility] Comment on above: Performed By: #### 2 4323-8 #### YANIQUE CHARLES ([id number]) [facility] ([facility]) [address] [place] [address] Chloride [Moles/Vol] 108 mmol/L High 98-107 [facility] Comment on above: Performed By: #### 2 4323-8 #### YANIQUE CHARLES ([id number]) [facility] ([facility]) [address] [place] [address] CO2 [Moles/Vol] 18 mmol/L Low 21-32 [facility] Comment on above: Performed By: #### 2 4323-8 #### YANIQUE CHARLES ([id number]) [facility] ([facility]) [address] [place] [address] Creatinine [Mass/Vol] 0.63 mg/dL Normal 0.50-1.05 [facility] Comment on above: Performed By: #### 2 4323-8 #### YANIQUE CHARLES ([id number]) [facility] ([facility]) [address] [place] [address] GFR/1.73 sq M.predicted MDRD (S/P/Bld) [Vol rate/Area] mL/min/{1.73_m2} Normal >60 [facility] Comment on above: Result Comment: Calc ulations of estimated GFR are performed using the 2020 CKD-EPI Study Refit equation without the race variable for the IDMS-Traceable creatinine methods. https://jasn.asnjournals.org/content/early/ASN.71171 53451 Performed By: #### 2 4323-8 #### YANIQUE CHARLES ([id number]) [facility] ([facility]) [address] [place] [address] Glucose [Mass/Vol] 142 mg/dL High 74-99 [facility] Comment on above: Performed By: #### 2 4323-8 #### YANIQUE CHARLES ([id number]) [facility] ([facility]) [address] [place] [address] Potassium [Moles/Vol] 3.6 mmol/L Normal 3.5-5.3 [facility] Comment on above: Performed By: #### 2 4323-8 #### YANIQUE CHARLES ([id number]) [facility] ([facility]) [address] [place] [address] Protein [Mass/Vol] 6.5 g/dL Normal 6.4-8.2 [facility] Comment on above: Performed By: #### 2 4323-8 #### YANIQUE CHARLES ([id number]) [facility] ([facility]) [address] [place] [address] Sodium [Moles/Vol] 137 mmol/L Normal 136-145 [facility] Comment on above: Performed By: #### 2 4323-8 #### YANIQUE CHARLES ([id number]) [facility] ([facility]) [address] [place] [address] Urea nitrogen [Mass/Vol] 14 mg/dL Normal 6-23 [facility] Comment on above: Performed By: #### 2 4323-8 #### YANIQUE CHARLES ([id number]) [facility] ([facility]) [address] [place] [address] Albumin BCP dye [Mass/Vol] 3.6 g/dL 3.4 - 5.0 g/dL [facility] ALP [Catalytic activity/Vol] 195 U/L High 33 - 110 U/L [facility] ALT With P-5'-P [Catalytic activity/Vol] 214 U/L High 7 - 45 U/L [facility] Comment on above: Patients treated wit h Sulfasalazine may generate falsely decreased results for ALT. Anion gap [Moles/Vol] 15 mmol/L 10 - 2 0 mmol/L [facility] AST With P-5'-P [Catalytic activity/Vol] 267 U/L High 9 - 39 U/L [facility] Bilirubin [Mass/Vol] 0.5 mg/dL 0.0 - 1 .2 mg/dL [facility] Calcium [Mass/Vol] 8.7 mg/dL 8.6 - 10. 3 mg/dL [facility] Chloride [Moles/Vol] 108 mmol/L High 98 - 10 7 mmol/L [facility] CO2 [Moles/Vol] 18 mmol/L Low 21 - 32 mmol/L [facility] Creatinine [Mass/Vol] 0.63 mg/dL 0.50 - 1.05 mg/dL [facility] eGFR - PINF [facility] Comment on above: Calculations of sherwin mated GFR are performed using the 2020 CKD-EPI Study Refit equation without the race variable for the IDMS-Traceable creatinine methods. https://jasn.asnjournals.org/content//ASN.94024 [address] Glucose [Mass/Vol] 142 mg/dL High 74 - 99 mg/dL [facility] Interpretation and review of laboratory results Abnormal [facility] Potassium [Moles/Vol] 3.6 mmol/L 3.5 - 5.3 mmol/L [facility] Protein [Mass/Vol] 6.5 g/dL 6.4 - 8.2 g/dL [facility] Sodium [Moles/Vol] 137 mmol/L 136 - 145 mmol/L [facility] Urea nitrogen [Mass/Vol] 14 mg/dL 6 - 23 mg/dL [facility] Free T4 [Mass/Vol]on 024 Interpretation and review of laboratory results Normal [facility] Thyroxine Free testi ng is performed using different testing methodology at [facility] than at other [facility]. Direct result comparisons should only be made within the same method. Biotin can cause falsely elevated free T4 results. Patients taking a Biotin dose of up to 10 mg/day should refrain from taking Biotin for 24 hours before sample collection. Patient taking a Biotin dose of >10 mg/day should consult with their physician or the laboratory before the blood draw. [facility] Glucose Test strip manual (B ld) [Mass/Vol]on 06-17-2023 Glucose [Mass/Vol] 120 mg/dL High 74-99 [facility] Comment on above: Performed By: #### 5 8410-2 #### YANIQUE CHARLES ([id number]) [facility] ([facility]) [address] [place] [address] Glucose [Mass/Vol] 120 mg/dL High 74 - 99 mg/dL [facility] Interpretation and review of laboratory results Abnormal [facility] Glucose [Mass/Vol] 165 mg/dL High 74-99 [facility] Comment on above: Performed By: #### 5 8410-2 #### YANIQUE CHARLES ([id number]) [facility] ([facility]) [address] [place] [address] Glucose [Mass/Vol] 165 mg/dL High 74 - 99 mg/dL [facility] Interpretation and review of laboratory results Abnormal [facility] Glucose [Mass/Vol] 103 mg/dL High 74-99 [facility] Comment on above: Performed By: #### 5 8410-2 #### YANIQUE CHARLES ([id number]) [facility] ([facility]) [address] [place] [address] Glucose [Mass/Vol] 103 mg/dL High 74 - 99 mg/dL [facility] Interpretation and review of laboratory results Abnormal [facility] Glucose [Mass/Vol] 123 mg/dL High 74-99 [facility] Comment on above: Performed By: #### 5 8410-2 #### YANIQUE CHARLES ([id number]) [facility] ([facility]) [address] [place] [address] Glucose [Mass/Vol] 123 mg/dL High 74 - 99 mg/dL [facility] Interpretation and review of laboratory results Abnormal [facility] Glucose [Mass/Vol] 144 mg/dL High 74-99 [facility] Comment on above: Performed By: #### 2 341-6 #### YAINQUE CHARLES ([id number]) [facility] ([facility]) [address] [place] [address] Glucose [Mass/Vol] 144 mg/dL High 74 - 99 mg/dL [facility] Interpretation and review of laboratory results Abnormal [facility] Glucose [Mass/Vol] 172 mg/dL High 74-99 [facility] Comment on above: Performed By: #### 2 341-6 #### YANIQUE CHARLES ([id number]) [facility] ([facility]) [address] [place] [address] Glucose [Mass/Vol] 172 mg/dL High 74 - 99 mg/dL [facility] Interpretation and review of laboratory results Abnormal [facility] Lipid 1996 panelon 4 Cholesterol [Mass/Vol] 195 mg/dL 0 - 1 99 mg/dL [facility] Comment on above: Age Desirable Borderline High High 0-19 Y 0 - 169 170 - 199 >/= 200 20-24 Y 0 - 189 190 - 224 >/= 225 >24 Y 0 - 199 200 - 239 >/= 240 All ranges are based on fasting samples. Specific therapeutic targets will vary based on patient-specific cardiac risk. Pediatric guidelines reference:Pediatrics 2011, 128(S5).Adult guidelines reference: NCEP ATPIII Guidelines,MICHELLE 2001, 258:2486-97 Venipuncture immediately after or during the administration of Metamizole may lead to falsely low results. Testing should be performed immediately prior to Metamizole dosing. Cholesterol in HDL [Mass/Vol] 30.3 mg/dL [facility] Comment on above: Age Very Low Low Normal High 0-19 Y < 35 < 40 40-45 ---- 20-24 Y ---- < 40 >45 ---- >24 Y ---- < 40 40-60 >60 Cholesterol in LDL [Mass/Vol] 122 mg/dL High NINF - 99 mg/dL [facility] Comment on above: Near Borderline AGE Desirable Optimal High High Very High 0-19 Y 0 - 109 --- 110-129 >/= 130 ---- 20-24 Y 0 - 119 --- 120-159 >/= 160 ---- >24 Y 0 - 99 100-129 130-159 160-189 >/=190 Cholesterol in VLDL [Mass/Vol] 43 mg/dL High 0 - 40 mg/dL [facility] Cholesterol.total/Chol esterol in HDL [Mass ratio] 6.4 {ratio} [facility] Comment on above: Ref Values Desirable < 3.4 High Risk > 5.0 Interpretation and review of laboratory results Abnormal [facility] Non HDL Cholesterol 165 mg/dL High 0 - 149 mg/dL [facility] Comment on above: Age Desirable Borderline High High Very High 0-19 Y 0 - 119 120 - 144 >/= 145 >/= 160 20-24 Y 0 - 149 150 - 189 >/= 190 ---- >24 Y 30 mg/dL above LDL Cholesterol goal Triglyceride [Mass/Vol] 214 mg/dL High 0 - 149 mg/dL [facility] Comment on above: Age Desirable Borderline High High Very High 0 D-90 D 19 - 174 ---- ---- ---- 91 D- 9 Y 0 - 74 75 - 99 >/= 100 ---- 10-19 Y 0 - 89 90 - 129 >/= 130 ---- 20-24 Y 0 - 114 115 - 149 >/= 150 ---- >24 Y 0 - 149 150 - 199 200- 499 >/= 500 Venipuncture immediately after or during the administration of Metamizole may lead to falsely low results. Testing should be performed immediately prior to Metamizole dosing. [facility] Cholesterol [Mass/Vol] 195 mg/dL Normal 0-199 [facility] Comment on above: Result Comment: Age Desirable Borderline High High 0-19 Y 0 - 169 170 - 199 >/= 200 20-24 Y 0 - 189 190 - 224 >/= 225 >24 Y 0 - 199 200 - 239 >/= 240 All ranges are based on fasting samples. Specific therapeutic targets will vary based on patient-specific cardiac risk. Pediatric guidelines reference:Pediatrics 2011, 128(S5).Adult guidelines reference: NCEP ATPIII Guidelines,MICHELLE 2001, 258:2486-97 Venipuncture immediately after or during the administration of Metamizole may lead to falsely low results. Testing should be performed immediately prior to Metamizole dosing. Performed By: #### 2 4331-1 #### YANIQUE CHARLES ([id number]) [facility] ([facility] [address] [place] [address] Cholesterol in HDL [Mass/Vol] 30.3 mg/dL Normal [facility] Comment on above: Result Comment: Age Very Low Low Normal High 0-19 Y < 35 < 40 40-45 ---- 20-24 Y ---- < 40 >45 ---- >24 Y ---- < 40 40-60 >60 Performed By: #### 2 4331-1 #### YANIQUE CHARLES ([id number]) [facility] ([facility] [address] [place] [address] Cholesterol in LDL [Mass/Vol] 122 mg/dL High <=99 [facility] Comment on above: Result Comment: Near Borderline AGE Desirable Optimal High High Very High 0-19 Y 0 - 109 --- 110-129 >/= 130 ---- 20-24 Y 0 - 119 --- 120-159 >/= 160 ---- >24 Y 0 - 99 100-129 130-159 160-189 >/=190 Performed By: #### 2 4331-1 #### YANIQUE CHARLES ([id number]) [facility] ([facility] [address] [place] [address] Cholesterol in VLDL [Mass/Vol] 43 mg/dL High 0-40 [facility] Comment on above: Performed By: #### 2 4331-1 #### YANIQUE CHARLES ([id number]) [facility] ([facility]) [address] [place] [address] CHOLESTEROL/HDL RATIO 6.4 Normal [facility] Comment on above: Result Comment: Ref Values Desirable < 3.4 High Risk > 5.0 Performed By: #### 2 4331-1 #### YANIQUE CHARLES ([id number]) [facility] ([facility] [address] [place] [address] NON HDL CHOLESTEROL 165 mg/dL High 0-149 [facility] Comment on above: Result Comment: Age Desirable Borderline High High Very High 0-19 Y 0 - 119 120 - 144 >/= 145 >/= 160 20-24 Y 0 - 149 150 - 189 >/= 190 ---- >24 Y 30 mg/dL above LDL Cholesterol goal Performed By: #### 2 4331-1 #### YANIQUE CHARLES ([id number]) [facility] ([facility]) [address] [place] [address] Triglyceride [Mass/Vol] 214 mg/dL High 0-149 [facility] Comment on above: Result Comment: Age Desirable Borderline High High Very High 0 D-90 D 19 - 174 ---- ---- ---- 91 D- 9 Y 0 - 74 75 - 99 >/= 100 ---- 10-19 Y 0 - 89 90 - 129 >/= 130 ---- 20-24 Y 0 - 114 115 - 149 >/= 150 ---- >24 Y 0 - 149 150 - 199 200- 499 >/= 500 Venipuncture immediately after or during the administration of Metamizole may lead to falsely low results. Testing should be performed immediately prior to Metamizole dosing. Performed By: #### 2 4331-1 #### YANIQUE CHARLES ([id number]) [facility] ([facility] [address] [place] [address] Magnesiumon 06-17-2023 Magnesium [Mass/Vol] 1.74 mg/dL Normal 1.60-2.40 [facility] Comment on above: Performed By: #### 1 9123-9 #### YANIQUE CHARLES ([id number]) [facility] ([facility]) [address] [place] [address] 18912 Magnesium [Mass/Vol] 1.74 mg/dL 1.60 - 2.40 mg/dL [facility] No Panel Informationon 06-17 Interpretation and review of laboratory results Normal [facility] Phosphateon 06-17-2023 Phosphate [Mass/Vol] 3.3 mg/dL Normal 2.5-4.9 [facility] Comment on above: Result Comment: The performance characteristics of phosphorus testing in heparinized plasma have been validated by the individual laboratory site where testing is performed. Testing on heparinized plasma is not approved by the FDA; however, such approval is not necessary. Performed By: #### 2 777-1 #### YANIQUE CHARLES ([id number]) [facility] ([facility]) [address] [place] [address] Phosphoruson 06-17-2023 Phosphate [Mass/Vol] 3.3 mg/dL 2.5 - 4 .9 mg/dL [facility] Comment on above: The performance ladonna acteristics of phosphorus testing in heparinized plasma have been validated by the individual laboratory site where testing is performed. Testing on heparinized plasma is not approved by the FDA; however, such approval is not necessary. T4, freeon 06-17-2023 Free T4 [Mass/Vol] 1.08 ng/dL 0.61 - 1. 12 ng/dL [facility] TSHon 06-17-2023 TSH Qn 5.79 m[IU]/L High [facility] TSH Qnon 06-17-2023 Interpretation and review of laboratory results Abnormal [facility] TSH testing is performed using different testing methodology at [facility] than at other [facility]. Direct result comparisons should only be made within the same method. [facility] Thyrotropinon 06-17-2023 TSH Qn 5.79 m[IU]/L High 0.44-3.98 [facility] Comment on above: Order Comment: TSH t esting is performed using different testing methodology at [facility] than at other [facility]. Direct result comparisons should only be made within the same method. Performed By: #### 3 016-3 #### YANIQUE CHARLES ([id number]) [facility] ([facility]) [address] [place] [address] Thyroxine.freeon 06-17-2023 Free T4 [Mass/Vol] 1.08 ng/dL Normal 0.61-1.12 [facility] Comment on above: Order Comment: Thyro xine Free testing is performed using different testing methodology at [facility] than at other [facility]. Direct result comparisons should only be made within the same method. Biotin can cause falsely elevated free T4 results. Patients taking a Biotin dose of up to 10 mg/day should refrain from taking Biotin for 24 hours before sample collection. Patient taking a Biotin dose of >10 mg/day should consult with their physician or the laboratory before the blood draw. Performed By: #### 3 024-7 #### YANIQUE CHARLES ([id number]) [facility] ([facility]) [address] [place] [address] 29569 Albumin/Creatinineon 024 Albumin/Creatinine DL <= 20 mg/L (U) [Mass ratio] 25.7 ug/mg Creat Normal <30.0 [facility] Comment on above: Performed By: #### 5 8410-2 #### YANIQUE CHARLES ([id number]) [facility] ([facility]) [address] [place] [address] 27746 Albumin/Creatinine DL <= 20 mg/L (U) [Mass ratio]on 06-16-2023 Albumin DL <= 20 mg/L (U) [Mass/Vol] 8.3 mg/L Normal Not established [facility] Comment on above: Performed By: #### 5 8410-2 #### YANIQUE CHARLES ([id number]) [facility] ([facility]) [address] [place] [address] 83088 Creatinine (U) [Mass/Vol] 32.3 mg/dL Normal 20.0-320.0 [facility] Comment on above: Performed By: #### 5 8410-2 #### YANIQUE CHARLES ([id number]) [facility] ([facility]) [address] [place] [address] 88165 Acute hepatitis 2000 panel ( S)on 06-12-2023 HAV IgM Ql (S) Non-Reactive Normal Nonreactive [facility] Comment on above: Result Comment: Biot in interference may cause falsely decreased results. Patients taking a Biotin dose of up to 5 mg/day should refrain from taking Biotin for 24 hours before sample collection. Providers may contact their local laboratory for further information. Performed By: #### 2 4363-4 #### BRENNA Napier ([id number]) [facility] ([facility]) [address] [place] [address] 67827 HBV core IgM Ql (S) Non-Reactive Normal Nonreactive [facility] Comment on above: Result Comment: Resu lts from patients taking biotin supplements or receiving high-dose biotin therapy should be interpreted with caution due to possible interference with this test. Providers may contact their local laboratory for further information. Performed By: #### 2 4363-4 #### BRENNA Napier ([id number]) [facility] ([facility]) [address] [place] [address] 61293 HBV surface Ag IA Ql Non-Reactive Normal Nonreactive [facility] Comment on above: Result Comment: Biot in interference may cause falsely decreased results. Patients taking a Biotin dose of up to 5 mg/day should refrain from taking Biotin for 24 hours before sample collection. Providers may contact their local laboratory for further information. Performed By: #### 2 4363-4 #### BRENNA Napier ([id number]) [facility] ([facility]) [address] [place] [address] 65840 HCV Ab Ql (S) Non-Reactive Normal Nonreactive [facility] Comment on above: Result Comment: Resu lts from patients taking biotin supplements or receiving high-dose biotin therapy should be interpreted with caution due to possible interference with this test. Providers may contact their local laboratory for further information. 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 The M allele protein product is a normal variant. The S allele protein product is a deficiency variant that is associated with a less severe deficiency (approximately 60 percent of normal serum concentrations) of the smthh-0-dyqudsdg inhibitor than the classic Z variant (approximately 15 percent of normal serum concentrations). Individuals with this phenotype are rarely at risk for development of tbixg-0-mfgdyoim inhibitor deficiency-related hepatic or pulmonary disease. Caution in interpretation is advised if the patient has been transfused in the previous 21 days. Performed By: [employer] [address] [place] [address]67 Codifier: Jorge Kruse MD, PhD CLIA Number: [id number] Performed By: #### 2 4325-3 #### BIN SCOTT ([id number]) [facility] ([facility]) [address] [place] [address] 70660 Alpha 1 antitrypsin phenotyp ing [Interp]on 06-12-2023 Alpha 1 antitrypsin [Mass/Vol] 145 mg/dL Normal 90-200 [facility] Comment on above: Result Comment: To c onvert to umol/L, multiply mg/dL by 0.185 Performed By: #### 2 4325-3 #### BIN SCOTT ([id number]) [facility] ([facility]) [address] [place] [address] 20454 Ceruloplasminon 06-12-2023 Ceruloplasmin [Mass/Vol] 31.4 mg/dL Normal 20.0-60.0 [facility] Comment on above: Performed By: #### 2 064-4 #### BRENNA Napier ([id number]) [facility] ([facility]) [address] [place] [address] 07547 Ferritinon 06-12-2023 Ferritin [Mass/Vol] 943 ng/mL High 8-150 [facility] Comment on above: Performed By: #### 2 276-4 #### BIN SCOTT ([id number]) [facility] ([facility]) [address] [place] [address] 20679 Mitochondria Abon 06-12-2023 Mitochondria Ab IF Ql (S) Negative Normal Negative [facility] Comment on above: Performed By: #### 2 4325-3 #### BIN SCOTT ([id number]) [facility] ([facility]) [address] [place] [address] 58934 Nuclear Abon 06-12-2023 Nuclear Ab Hep2 substrate Ql (S) Negative Normal Negative [facility] Comment on above: Result Comment: The Antinuclear Antibody (PAULETTE) test was performed using indirect immunofluorescence assay with HEp-2 cells slide. Performed By: #### 2 4325-3 #### STEWARD SONIA ([id number]) [facility] ([facility]) [facility] [place] [address] Smooth muscle Abon 4 Smooth muscle Ab IF Ql (S) Negative Normal Negative [facility] Comment on above: Performed By: #### 2 6971-2 #### BRENNA Napier ([id number]) [facility] ([facility]) [address] [place] [address] 25793 Gliadin peptide Ab.IgAon Gliadin peptide IgA IA Qn (S) 2.5 U/mL Normal <15.0 [facility] Comment on above: Result Comment: Fals e negative Deamidated Gliadin Peptide Antibody, IgA results can occur in patients already adhering to a gluten-free diet or patients with IgA deficiency. Tissue Transglutaminase Antibody, IgA is the preferred test for screening patients with suspected Celiac Disease. ??? Performed By: #### 6 3453-5 #### BRENNA Napier ([id number]) [facility] ([facility]) [address] [place] [address] 00085 Gliadin peptide Ab.IgGon Gliadin peptide IgG IA Qn (S) <0.56 Normal 0.00-4.99 [facility] Comment on above: Result Comment: INTE RPRETIVE INFORMATION: Deamidated Gliadin Peptide (DGP) Ab, IgG In individuals with low or deficient IgA, testing for tissue transglutaminase (tTG) and deamidated Gliadin (DGP) antibodies of the IgG isotype is performed. Positive tTG and/or DGP IgG antibody results indicate celiac disease; however, small intestinal biopsy is required to establish a diagnosis due to the lower accuracy of these markers, especially in patients without IgA deficiency. Performed By: [employer] [address] [place] [address]140 Codifier: Jorge Kruse MD, PhD [place] Number: [id number] Performed By: #### 6 3459-2 #### EKTA BELLA) ([id number]) [address] [place] [address] Hepatic function 2000 panelo n 06-02-2023 Albumin BCP dye [Mass/Vol] 4.1 g/dL Normal 3.4-5.0 [facility] Comment on above: Performed By: #### 2 4325-3 #### BIN SCOTT ([id number]) [facility] ([facility]) [address] [place] [address] 73708 ALP [Catalytic activity/Vol] 203 U/L High 33-110 [facility] Comment on above: Performed By: #### 2 5-3 #### BIN SCOTT ([id number]) [facility] ([facility]) [address] [place] [address] 84712 ALT With P-5'-P [Catalytic activity/Vol] 189 U/L High 7-45 [facility] Comment on above: Result Comment: Ana M ents treated with Sulfasalazine may generate falsely decreased results for ALT. Performed By: #### 2 5-3 #### BIN SCOTT ([id number]) [facility] ([facility]) [address] [place] [address] 02324 AST With P-5'-P [Catalytic activity/Vol] 108 U/L High 9-39 [facility] Comment on above: Performed By: #### 2 5-3 #### BIN SCOTT ([id number]) [facility] ([facility]) [address] [place] [address] 95214 Bilirubin [Mass/Vol] 0.3 mg/dL Normal 0.0-1.2 [facility] Comment on above: Performed By: #### 2 5-3 #### BIN SCOTT ([id number]) [facility] ([facility]) [address] [place] [address] 65949 Bilirubin.direct [Mass/Vol] 0.0 mg/dL Normal 0.0-0.3 [facility] Comment on above: Performed By: #### 2 5-3 #### BIN SCOTT ([id number]) [facility] ([facility]) [address] [place] [address] 14356 Protein [Mass/Vol] 6.6 g/dL Normal 6.4-8.2 [facility] Comment on above: Performed By: #### 2 4325-3 #### BIN SCOTT ([id number]) [facility] ([facility]) [address] [place] [address] 43063 Tissue transglutaminase Ab.I gAon 06-02-2023 tTG IgA IA Qn (S) <1.0 Normal <15.0 [facility] Comment on above: Result Comment: Soheila ac disease is unlikely. False negative Tissue Transglutaminase Antibody, IgA results can occur in approximately 10% of patients with celiac disease, patients already adhering to a gluten-free diet, or patients with IgA deficiency. Performed By: #### 4 6128-5 #### BRENNA Napier ([id number]) [facility] ([facility]) [address] [place] [address] 96016 Tissue transglutaminase Ab.I gGon 06-02-2023 tTG IgG IA Qn (S) <0.82 Normal 0.00-4.99 [facility] Comment on above: Result Comment: INTE RPRETIVE INFORMATION: Tissue Transglutaminase Ab, IgG In individuals with low or deficient IgA, testing for tissue transglutaminase (tTG) and deamidated Gliadin (DGP) antibodies of the IgG isotype is performed. Positive tTG and/or DGP IgG antibody results indicate celiac disease; however, small intestinal biopsy is required to establish a diagnosis due to the lower accuracy of these markers, especially in patients without IgA deficiency. Performed By: [employer] [address] [place] [address] Codifier: Jorge Kruse MD, PhD CLIA Number: [id number] Performed By: #### 5 6537-4 #### [employer] RADHA BELLA) ([id number]) [address] [place] [address] Elastase.pancreaticon 2023 Elastase.pancreatic (Stl) [Mass/Mass] 335 ug/g Normal >=100 [facility] Comment on above: Result Comment: REFE RENCE INTERVAL: Pancreatic Elastase Fecal by Immunoassay Less than 100 ug/g............Severe insufficiency 100 - 199 ug/g................Moderate insufficiency 200 ug/g or greater...........Normal INTERPRETIVE INFORMATION: Pancreatic Elastase Fecal by Immunoassay Reference intervals do not apply for infants less than one month old. Performed By: [employer] [address] [place] [address] Codifier: Jorge Kruse MD, PhD CLIA Number: [id number] Performed By: #### 2 5907-7 #### [employer] [facility] ([id number]) [address] [place] [address] Liver limitedon 4 Enlarged liver with diffuse fatty infiltration. The patient is status post cholecystectomy. Otherwise, grossly unremarkable right upper quadrant ultrasound. MACRO: None Signed by: Jorge Wilson 05/24/2023 7:20 AM Dictation workstation: [id number] MMODAL Interpreted By: Jorge Wilson, STUDY: US ABDOMEN LIMITED LIVER; 05/23/2023 8:29 am INDICATION: Signs/Symptoms:elevate d transaminases. COMPARISON: 01/27/2021 ACCESSION NUMBER(S): [id number] ORDERING CLINICIAN: TITI QUEZADA TECHNIQUE: Multiple images of the right upper quadrant were obtained. FINDINGS: LIVER: The liver measures 19.9 cm and is diffusely echogenic in appearance, consistent with diffuse fatty infiltration. The resulting increased beam attenuation thereby limiting evaluation of the liver for focal lesions. Within the limitations, no focal lesions are seen. GALLBLADDER: Surgically absent. BILE DUCTS: No evidence of intra or extrahepatic biliary dilatation is identified; the common bile duct measures 5.2 mm. PANCREAS: The visualized pancreas is unremarkable in appearance. RIGHT KIDNEY: The right kidney measures 11.3 cm in length. The renal cortical echogenicity and thickness are within normal limit. No hydronephrosis or renal calculi are seen. MMODAL Jorge Wilson MD - 05/24/2023 Interpreted By: Jorge Wilson, STUDY: US ABDOMEN LIMITED LIVER; 05/23/2023 8:29 am INDICATION: Signs/Symptoms:elevate d transaminases. COMPARISON: 01/27/2021 ACCESSION NUMBER(S): [id number] ORDERING CLINICIAN: TITI QUEZADA TECHNIQUE: Multiple images of the right upper quadrant were obtained. FINDINGS: LIVER: The liver measures 19.9 cm and is diffusely echogenic in appearance, consistent with diffuse fatty infiltration. The resulting increased beam attenuation thereby limiting evaluation of the liver for focal lesions. Within the limitations, no focal lesions are seen. GALLBLADDER: Surgically absent. BILE DUCTS: No evidence of intra or extrahepatic biliary dilatation is identified; the common bile duct measures 5.2 mm. PANCREAS: The visualized pancreas is unremarkable in appearance. RIGHT KIDNEY: The right kidney measures 11.3 cm in length. The renal cortical echogenicity and thickness are within normal limit. No hydronephrosis or renal calculi are seen. IMPRESSION: Enlarged liver with diffuse fatty infiltration. The patient is status post cholecystectomy. Otherwise, grossly unremarkable right upper quadrant ultrasound. MACRO: None Signed by: Jorge Wilson 05/24/2023 7:20 AM Dictation workstation: [id number] [facility] Work Phone: US Liver limitedOrdered By: Jorge Wilson on 05-24-2023 [facility] Work Phone: US Liver limitedon Radiology Study observation (narrative) [facility] Work Phone: Absolute lymphocyte countOrd ered By: Tyler Ariza on 03-27-2023 Lymphocytes Auto (Unsp spec) [#/Vol] 2.85 10*3/uL 0.83-4.51 [facility] Basophil percentageOrdered B y: Tyler Ariza on 03-27-2023 Basophils/100 WBC (Bld) 0.8 % 0-1 [facility] Bilirubin [Mass/Vol] 0.20 mg/dL 0.20-1.00 [facility] Comment on above: For patients on eltr ombopag therapy, use of Dimension [place] TBIL is not recommended. Chloride [Moles/Vol] 113 mmol/L 98-107 [facility] Eosinophils/100 WBC (Bld) 2.6 % 0-5 [facility] Glucose [Mass/Vol] 132 mg/dL 74-106 [facility] Comment on above: Fasting Glucose resu lt greater than or equal to 126 mg/dL suggests DIABETES MELLITUS per A.D.A. criteria. Neutrophils (Bld) [#/Vol] 3.6 10*3/uL 2.0-7.7 [facility] Neutrophils/100 WBC (Bld) 48.4 % 47-70 [facility] Potassium [Moles/Vol] 3.6 mmol/L 3.5-5.1 [facility] Protein [Mass/Vol] 7.3 g/dL 6.4-8.2 [facility] Sodium [Moles/Vol] 139 mmol/L 136-145 [facility] WBC (Bld) [#/Vol] 7.4 10*3/uL 4.4-11.0 [facility] Blood erythrocytes count (nu mber/volume)Ordered By: Tyler Ariza on 03-27-2023 RBC (Bld) [#/Vol] 4.73 10*6/uL 4.2-5.4 [facility] Blood hemoglobin measurement (mass/volume)Ordered By: Tyler Ariza on 03-27-2023 Hemoglobin (Bld) [Mass/Vol] 13.5 g/dL 12.0-15.0 [facility] Blood lymphocytes/100 leukoc ytesOrdered By: Tyler Ariza on 03-27-2023 Lymphocytes/100 WBC (Bld) 38.6 % 19-41 [facility] Blood monocytes/100 leukocyt esOrdered By: Tyler Ariza on 03-27-2023 Monocytes/100 WBC (Bld) 9.3 % 0-10 [facility] Blood platelet mean volumeOr dered By: Tyler Ariza on 03-27-2023 Platelet mean volume (Bld) [Entitic vol] 9.4 fL 6.2-12.0 [facility] Determination of erythrocyte mean corpuscular volume (MCV)Ordered By: Tyler Ariza on 03-27-2023 MCV (RBC) [Entitic vol] 88.2 fL 81-99 [facility] Direct bilirubinOrdered By: Tyler Ariza on 03-27-2023 Bilirubin.direct [Mass/Vol] 0.08 mg/dL 0.00-0.30 [facility] Hematocrit Auto (Bld) [Volum e fraction]Ordered By: Tyler Ariza on 03-27-2023 Hematocrit (Bld) [Volume fraction] 41.7 % 37-47 [facility] - Chemistry and C hemistry - challengeOrdered By: Tyler Ariza on 03-27-2023 ALP [Catalytic activity/Vol] 184 U/L 45-117 [facility] ALT [Catalytic activity/Vol] 172 U/L 13-56 [facility] CO2 [Moles/Vol] 21.0 mmol/L 21.0-32.0 [facility] Globulin (S) [Mass/Vol] 3.7 g/dL 2.2-4.2 [facility] Lipase [Catalytic activity/Vol] 46 U/L 13-75 [facility] Comment on above: Please note:LIPASE r evised reference range effective 22. New Lipase methodology. Expected to produce lower values than the previous assay method. NEW Reference Range: 13 - 75 U/L Urea nitrogen/Creatinine [Mass ratio] 16.9 mg/mg 10-20 [facility] - Hematology and Cell countsOrdered By: Tyler Ariza on 03-27-2023 Erythrocyte distribution width (RBC) [Entitic vol] 42.2 fL 35.1-43.9 [facility] Erythrocyte distribution width (RBC) [Ratio] 13.1 % 11.6-14.6 [facility] Immature granulocytes/100 WBC (Bld) 0.300 % 0.0-0.9 [facility] Comment on above: IG% - Immature Granu locytes (promyelocytes, myelocytes and metamyelocytes) > 1% indicates that a LEFT SHIFT is Present. MCH (RBC) [Entitic mass] 28.5 pg 27.0-32.0 [facility] Nucleated RBC/100 WBC (Bld) [Ratio] 0 % 0-5 [facility] MCHC Auto (RBC) [Mass/Vol]Or dered By: Tyler Ariza on 03-27-2023 MCHC (RBC) [Mass/Vol] 32.4 g/dL 32-36 [facility] No Panel InformationOrdered By: Tyler Ariza on 03-27-2023 Estimated Creatinine Clearance Calc 65.31 ml/min [facility] Estimated GFR (MDRD) Amer 92 mL/min >60 [facility] Comment on above: GFR Calc Estimated GFR (MDRD) Non-Af Amer 76 mL/min >60 [facility] Comment on above: Non- GFR Calc Platelets bldOrdered By: Jeanmarie Ariza on 03-27-2023 Platelets (Bld) [#/Vol] 231 10*3/uL 150-450 [facility] Serum or plasma albumin thomas urement (mass/volume)Ordered By: Tyler Ariza on 03-27-2023 Albumin [Mass/Vol] 3.6 g/dL 3.2-5.0 [facility] Serum or plasma calcium thomas urement (mass/volume)Ordered By: Tyler Ariza on 03-27-2023 Calcium [Mass/Vol] 8.3 mg/dL 8.5-10.1 [facility] Serum or plasma creatinine m easurement (mass/volume)Ordered By: Tyler Ariza on 03-27-2023 Creatinine [Mass/Vol] 0.89 mg/dL 0.55-1.02 [facility] Comment on above: The validity of the calculated GFR & GFRAA in patients over 70 years has not been determined. Clinical correlation is essential. Serum or plasma urea nitroge n measurement (mass/volume)Ordered By: Tyler Ariza on 03-27-2023 Urea nitrogen [Mass/Vol] 15 mg/dL 7-18 [facility] Thin prep Papanicolaou smear with manual screeningOrdered By: Tyler Ariza on 03-27-2023 Thin prep Papanicolaou smear with manual screening 72 U/L 15-37 [facility] Thin prep Papanicolaou smear with manual screening 5 5-15 [facility] Absolute lymphocyte countOrd ered By: Tyler Ariza on 03-21-2023 Lymphocytes Auto (Unsp spec) [#/Vol] 2.91 10*3/uL 0.83-4.51 [facility] Basophil percentageOrdered B y: Tyler Ariza on 03-21-2023 Basophil percentage 0-5 SEEN /hpf 0-5 [facility] Basophils/100 WBC (Bld) 1.0 % 0-1 [facility] Bilirubin [Mass/Vol] 0.20 mg/dL 0.20-1.00 [facility] Comment on above: For patients on eltr ombopag therapy, use of Dimension [place] TBIL is not recommended. Chloride [Moles/Vol] 112 mmol/L 98-107 [facility] Eosinophils/100 WBC (Bld) 3.5 % 0-5 [facility] Glucose [Mass/Vol] 124 mg/dL 74-106 [facility] Comment on above: Fasting Glucose resu lt from 100 to 125 mg/dL suggests IMPAIRED HOMEOSTASIS per A.D.A. criteria. Neutrophils (Bld) [#/Vol] 3.2 10*3/uL 2.0-7.7 [facility] Neutrophils/100 WBC (Bld) 45.3 % 47-70 [facility] Potassium [Moles/Vol] 3.4 mmol/L 3.5-5.1 [facility] Protein [Mass/Vol] 7.9 g/dL 6.4-8.2 [facility] Sodium [Moles/Vol] 141 mmol/L 136-145 [facility] WBC (Bld) [#/Vol] 7.1 10*3/uL 4.4-11.0 [facility] [facility] Beta hCG serum qualOrdered B y: Tyler Ariza on 03-21-2023 Beta HCG ( test) Ql Negative [facility] Bilirubin Test strip Ql (U)O rdered By: Tyler Ariza on 03-21-2023 Bilirubin Ql (U) Negative Negative [facility] Blood erythrocytes count (nu mber/volume)Ordered By: Tyler Ariza on 03-21-2023 RBC (Bld) [#/Vol] 4.91 10*6/uL 4.2-5.4 [facility] Blood hemoglobin measurement (mass/volume)Ordered By: Tyler Ariza on 03-21-2023 Hemoglobin (Bld) [Mass/Vol] 13.9 g/dL 12.0-15.0 [facility] Blood lymphocytes/100 leukoc ytesOrdered By: Tyler Ariza on 03-21-2023 Lymphocytes/100 WBC (Bld) 40.8 % 19-41 [facility] Blood monocytes/100 leukocyt esOrdered By: Tyler Ariza on 03-21-2023 Monocytes/100 WBC (Bld) 9.0 % 0-10 [facility] Blood platelet mean volumeOr dered By: Tyler Ariza on 03-21-2023 Platelet mean volume (Bld) [Entitic vol] 9.2 fL 6.2-12.0 [facility] Determination of erythrocyte mean corpuscular volume (MCV)Ordered By: Tyler Ariza on 03-21-2023 MCV (RBC) [Entitic vol] 89.2 fL 81-99 [facility] Hematocrit Auto (Bld) [Volum e fraction]Ordered By: Tyler Ariza on 03-21-2023 Hematocrit (Bld) [Volume fraction] 43.8 % 37-47 [facility] Ketones Test strip Ql (U)Ord ered By: Tyler Ariza on 03-21-2023 Ketones Ql (U) 5 mg/dl Negative [facility] Laboratory - Chemistry and C hemistry - challengeOrdered By: Tyler Ariza on 03-21-2023 ALP [Catalytic activity/Vol] 202 U/L 45-117 [facility] ALT [Catalytic activity/Vol] 190 U/L 13-56 [facility] CO2 [Moles/Vol] 27.0 mmol/L 21.0-32.0 [facility] Globulin (S) [Mass/Vol] 4.0 g/dL 2.2-4.2 [facility] Lipase [Catalytic activity/Vol] 50 U/L 13-75 [facility] Comment on above: Please note:LIPASE r evised reference range effective 22. New Lipase methodology. Expected to produce lower values than the previous assay method. NEW Reference Range: 13 - 75 U/L Urea nitrogen/Creatinine [Mass ratio] 15.4 mg/mg 10-20 [facility] Laboratory - Hematology and Cell countsOrdered By: Tyler Ariza on 03-21-2023 Erythrocyte distribution width (RBC) [Entitic vol] 43.8 fL 35.1-43.9 [facility] Erythrocyte distribution width (RBC) [Ratio] 13.3 % 11.6-14.6 [facility] Immature granulocytes/100 WBC (Bld) 0.400 % 0.0-0.9 [facility] Comment on above: IG% - Immature Granu locytes (promyelocytes, myelocytes and metamyelocytes) > 1% indicates that a LEFT SHIFT is Present. MCH (RBC) [Entitic mass] 28.3 pg 27.0-32.0 [facility] Nucleated RBC/100 WBC (Bld) [Ratio] 0 % 0-5 [facility] MCHC Auto (RBC) [Mass/Vol]Or dered By: Tyler Ariza on 03-21-2023 MCHC (RBC) [Mass/Vol] 31.7 g/dL 32-36 [facility] Mucus LM Ql (Urine sed)Order ed By: Tyler Ariza on 03-21-2023 Mucus Ql (Urine sed) 0 SEEN /hpf [facility] Nitrite Test strip Ql (U)Ord ered By: Tyler Ariza on 03-21-2023 Nitrite Ql (U) Negative Negative [facility] No Panel InformationOrdered By: Tyler Ariza on 03-21-2023 Estimated Creatinine Clearance Calc 69.19 ml/min [facility] Estimated GFR (MDRD) Amer 97 mL/min >60 [facility] Comment on above: GFR Calc Estimated GFR (MDRD) Non-Af Amer 81 mL/min >60 [facility] Comment on above: Non- GFR Calc Platelets bldOrdered By: Jeanmaire Ariza on 03-21-2023 Platelets (Bld) [#/Vol] 234 10*3/uL 150-450 [facility] Protein Test strip Ql (U)Ord ered By: Tyler Ariza on 03-21-2023 Protein Ql (U) 15 mg/dl Negative [facility] Serum or plasma albumin thomas urement (mass/volume)Ordered By: Tyler Ariza on 03-21-2023 Albumin [Mass/Vol] 3.9 g/dL 3.2-5.0 [facility] Serum or plasma albumin/glob ulin mass ratioOrdered By: Tyler Ariza on 03-21-2023 Albumin/Globulin [Mass ratio] 1.0 {ratio} 0.9-2.4 [facility] Serum or plasma calcium thomas urement (mass/volume)Ordered By: Tyler Ariza on 03-21-2023 Calcium [Mass/Vol] 9.1 mg/dL 8.5-10.1 [facility] Serum or plasma creatinine m easurement (mass/volume)Ordered By: Tyler Ariza on 03-21-2023 Creatinine [Mass/Vol] 0.84 mg/dL 0.55-1.02 [facility] Comment on above: The validity of the calculated GFR & GFRAA in patients over 70 years has not been determined. Clinical correlation is essential. Serum or plasma urea nitroge n measurement (mass/volume)Ordered By: Tyler Ariza on 03-21-2023 Urea nitrogen [Mass/Vol] 13 mg/dL 7-18 [facility] Squamous epithelial cells de tection in urine sediment by light microscopyOrdered By: Tyler Ariza on 03-21-2023 Epithelial cells.squamous LM Ql (Urine sed) 0-5 SEEN /hpf 5-10 [facility] Thin prep Papanicolaou smear with manual screeningOrdered By: Tyler Ariza on 03-21-2023 Thin prep Papanicolaou smear with manual screening 86 U/L 15-37 [facility] Thin prep Papanicolaou smear with manual screening 2 5-15 [facility] Urine blood detectionOrdered By: Tyler Ariza on 03-21-2023 RBC Ql (U) Negative Negative [facility] RBC Ql (U) 0 SEEN /hpf 0-5 [facility] Urine clarityOrdered By: Jeanmarie Ariza on 03-21-2023 Clarity (U) Clear Clear [facility] Urine color determinationOrd ered By: Tyler Ariza on 03-21-2023 Color (U) Yellow Yellow [facility] Urine glucose detectionOrder ed By: Tyler Ariza on 03-21-2023 Glucose Ql (U) Normal mg/dl Normal [facility] Urine leukocyte esterase det ection by dipstickOrdered By: Tyler Ariza on 03-21-2023 Leukocyte esterase Test strip Ql (U) Negative Negative [facility] Urine pHOrdered By: Tyler omalley on 03-21-2023 pH (U) 6.5 [pH] 5.0 - 8.0 [facility] Urine sediment bacteria coun t by microscopy (number/high power field)Ordered By: Tyler Ariza on 03-21-2023 Bacteria LM.HPF (Urine sed) [#/Area] 2 /[HPF] None Seen [facility] Urine specific gravity measu rementOrdered By: Tyler Ariza on 03-21-2023 Specific gravity (U) [Rel density] 1.020 1.002-1.030 [facility] Urobilinogen Auto test strip Ql (U)Ordered By: Tyler To on 03-21-2023 Urobilinogen Ql (U) Normal mg/dl Normal [facility] CBC W Auto Differential pane l (Bld)on 03-14-2023 Basophils (Bld) [#/Vol] 0.05 10*3/uL [facility] Basophils/100 WBC (Bld) 0.8 % 0.0 - 2.0 % [facility] Eosinophils (Bld) [#/Vol] 0.18 10*3/uL [facility] Eosinophils/100 WBC (Bld) 2.8 % 0.0 - 6.0 % [facility] Erythrocyte distribution width (RBC) [Ratio] 13.4 % 11.5 - 14.5 % [facility] Hematocrit (Bld) [Volume fraction] 45.0 % 36.0 - 46.0 % [facility] Hemoglobin (Bld) [Mass/Vol] 14.5 g/dL 12.0 - 16.0 g/dL [facility] Immature granulocytes (Bld) [#/Vol] 0.03 10*3/uL [facility] Immature granulocytes/100 WBC (Bld) 0.5 % 0.0 - 0.9 % [facility] Comment on above: Immature Granulocyte Count (IG) includes promyelocytes, myelocytes and metamyelocytes but does not include bands. Percent differential counts (%) should be interpreted in the context of the absolute cell counts (cells/UL). Lymphocytes (Bld) [#/Vol] 1.90 10*3/uL [facility] Lymphocytes/100 WBC (Bld) 30.0 % 13.0 - 44.0 % [facility] MCH (RBC) [Entitic mass] 29.1 pg 26.0 - 34.0 pg [facility] MCHC (RBC) [Mass/Vol] 32.2 g/dL 32.0 - 36.0 g/dL [facility] MCV (RBC) [Entitic vol] 90 fL 80 - 100 fL [facility] Monocytes (Bld) [#/Vol] 0.43 10*3/uL [facility] Monocytes/100 WBC (Bld) 6.8 % 2.0 - 10.0 % [facility] Neutrophils (Bld) [#/Vol] 3.75 10*3/uL [facility] Comment on above: Percent differential counts (%) should be interpreted in the context of the absolute cell counts (cells/uL). Neutrophils/100 WBC (Bld) 59.1 % 40.0 - 80.0 % [facility] Nucleated RBC/100 WBC (Bld) [Ratio] 0.0 % [facility] Platelets (Bld) [#/Vol] 251 10*3/uL [facility] RBC (Bld) [#/Vol] 4.99 10*6/uL [facility] WBC (Bld) [#/Vol] 6.3 10*3/uL [facility] CT Abdomen and Pelvis W cont rast Aixa 03-14-2023 Normal appendix. No evidence of renal or ureteral calculi. No evidence of hydronephrosis. Hepatic steatosis. Otherwise unremarkable CT scan of the abdomen and pelvis. Signed by Jose Whatley MD TELERADIOLOGY STUDY: CT Abdomen and Pelvis with IV Contrast; 03/14/23 at 11:58 AM INDICATION: RLQ pain, right flank pain. COMPARISON: Gallbladder US 01/27/21, CT AP 01/26/21. ACCESSION NUMBER(S): [id number] ORDERING CLINICIAN: JULIANE HARRINGTON TECHNIQUE: CT of the abdomen and pelvis was performed. Contiguous axial images were obtained at 3 mm slice thickness through the abdomen and pelvis. Coronal and sagittal reconstructions at 3 mm slice thickness were performed. Omnipaque 350 70 mL was administered intravenously. FINDINGS: LOWER CHEST: No cardiomegaly. No pericardial effusion. Lung bases are clear. ABDOMEN: LIVER: No hepatomegaly. Smooth surface contour. There is fatty infiltration of the liver. BILE DUCTS: No intrahepatic or extrahepatic biliary ductal dilatation. GALLBLADDER: The gallbladder is nonvisualized. STOMACH: No abnormalities identified. PANCREAS: No masses or ductal dilatation. SPLEEN: No splenomegaly or focal splenic lesion. ADRENAL GLANDS: No thickening or nodules. KIDNEYS AND URETERS: Kidneys are normal in size and location. No renal or ureteral calculi. PELVIS: BLADDER: No abnormalities identified. REPRODUCTIVE ORGANS: No abnormalities identified. BOWEL: No abnormalities identified. The appendix is identified and is normal. VESSELS: No abnormalities identified. Abdominal aorta is normal in caliber. PERITONEUM/RETROPERITO NEUM/LYMPH NODES: No free fluid. No pneumoperitoneum. No lymphadenopathy. ABDOMINAL WALL: No abnormalities identified. SOFT TISSUES: No abnormalities identified. BONES: No acute fracture or aggressive osseous lesion. TELERADIOLOGY Jose Whatley MD - 03/14/2023 STUDY: CT Abdomen and Pelvis with IV Contrast; 03/14/23 at 11:58 AM INDICATION: RLQ pain, right flank pain. COMPARISON: Gallbladder US 01/27/21, CT AP 01/26/21. ACCESSION NUMBER(S): [id number] ORDERING CLINICIAN: JULIANE HARRINGTON TECHNIQUE: CT of the abdomen and pelvis was performed. Contiguous axial images were obtained at 3 mm slice thickness through the abdomen and pelvis. Coronal and sagittal reconstructions at 3 mm slice thickness were performed. Omnipaque 350 70 mL was administered intravenously. FINDINGS: LOWER CHEST: No cardiomegaly. No pericardial effusion. Lung bases are clear. ABDOMEN: LIVER: No hepatomegaly. Smooth surface contour. There is fatty infiltration of the liver. BILE DUCTS: No intrahepatic or extrahepatic biliary ductal dilatation. GALLBLADDER: The gallbladder is nonvisualized. STOMACH: No abnormalities identified. PANCREAS: No masses or ductal dilatation. SPLEEN: No splenomegaly or focal splenic lesion. ADRENAL GLANDS: No thickening or nodules. KIDNEYS AND URETERS: Kidneys are normal in size and location. No renal or ureteral calculi. PELVIS: BLADDER: No abnormalities identified. REPRODUCTIVE ORGANS: No abnormalities identified. BOWEL: No abnormalities identified. The appendix is identified and is normal. VESSELS: No abnormalities identified. Abdominal aorta is normal in caliber. PERITONEUM/RETROPERITO NEUM/LYMPH NODES: No free fluid. No pneumoperitoneum. No lymphadenopathy. ABDOMINAL WALL: No abnormalities identified. SOFT TISSUES: No abnormalities identified. BONES: No acute fracture or aggressive osseous lesion. IMPRESSION: Normal appendix. No evidence of renal or ureteral calculi. No evidence of hydronephrosis. Hepatic steatosis. Otherwise unremarkable CT scan of the abdomen and pelvis. Signed by Jose Whatley MD [facility] Work Phone: Radiology Study observation (narrative) [facility] Work Phone: CT Abdomen and Pelvis W cont rast IVOrdered By: Jose Whatley on 03-14-2023 [facility] Work Phone: Comprehensive metabolic 2000 panelon 03-14-2023 Albumin BCP dye [Mass/Vol] 4.6 g/dL 3.4 - 5.0 g/dL [facility] ALP [Catalytic activity/Vol] 181 U/L High 33 - 110 U/L [facility] ALT With P-5'-P [Catalytic activity/Vol] 156 U/L High 7 - 45 U/L [facility] Comment on above: Patients treated wit h Sulfasalazine may generate falsely decreased results for ALT. Anion gap [Moles/Vol] 11 mmol/L 10 - 2 0 mmol/L [facility] AST With P-5'-P [Catalytic activity/Vol] 102 U/L High 9 - 39 U/L [facility] Bilirubin [Mass/Vol] 0.4 mg/dL 0.0 - 1 .2 mg/dL [facility] Calcium [Mass/Vol] 9.2 mg/dL 8.6 - 10. 3 mg/dL [facility] Chloride [Moles/Vol] 108 mmol/L High 98 - 10 7 mmol/L [facility] CO2 [Moles/Vol] 24 mmol/L 21 - 32 mmol/L [facility] Creatinine [Mass/Vol] 0.77 mg/dL 0.50 - 1.05 mg/dL [facility] GFR/1.73 sq M.predicted MDRD (S/P/Bld) [Vol rate/Area] - PINF [facility] Comment on above: Calculations of sherwin mated GFR are performed using the 2020 CKD-EPI Study Refit equation without the race variable for the IDMS-Traceable creatinine methods. https://jasn.asnjournals.org/content//ASN.87058 11284 Glucose [Mass/Vol] 110 mg/dL High 74 - 99 mg/dL [facility] Interpretation and review of laboratory results Abnormal [facility] Potassium [Moles/Vol] 3.6 mmol/L 3.5 - 5.3 mmol/L [facility] Protein [Mass/Vol] 7.5 g/dL 6.4 - 8.2 g/dL [facility] Sodium [Moles/Vol] 139 mmol/L 136 - 145 mmol/L [facility] Urea nitrogen [Mass/Vol] 18 mg/dL 6 - 23 mg/dL [facility] Extra Urine Swanson Tubeon 02-20 Extra Tube Hold for add-ons. [facility] Comment on above: Auto resulted. [facility] HCG.beta subunit Qnon 2022 Interpretation and review of laboratory results Normal [facility] Total HCG measuremen t is performed using the Melinda Renaldo Access Immunoassay which detects intact HCG and free beta HCG subunit. This test is not indicated for use as a tumor marker. HCG testing is performed using a different test methodology at [facility] than other [facility]. Direct result comparison should only be made within the same method. [facility] Human Chorionic Gonadotropin , Serum Quantitativeon 03-14-2023 HCG.beta subunit Qn NINF Unive [facility] Lactateon 03-14-2023 Lactate [Moles/Vol] 1.2 mmol/L 0.4 - 2. 0 mmol/L [facility] Lactate [Moles/Vol]on 2022 Interpretation and review of laboratory results Normal [facility] Venipuncture immediately after or during the administration of Metamizole may lead to falsely low results. Testing should be performed immediately prior to Metamizole dosing. [facility] Lipaseon 03-14-2023 Lipase [Catalytic activity/Vol] 34 U/L 9 - 82 U/L [facility] Lipase [Catalytic activity/V ol]on 03-14-2023 Interpretation and review of laboratory results Normal [facility] Venipuncture immediately after or during the administration of Metamizole may lead to falsely low results. Testing should be performed immediately prior to Metamizole dosing. [facility] Urinalysis complete W Reflex Culture panel (U)on 03-14-2023 Appearance (U) Hazy Abnormal Clear [facility] Bilirubin (U) [Mass/Vol] Negative NEGATIVE [facility] Color (U) Yellow Straw, Yellow [facility] Epithelial cells.squamous Auto (Urine sed) [#/Area] 10-25 (FEW) Reference range not established. /HPF [facility] Glucose Auto test strip (U) [Mass/Vol] Negative NEGATIVE mg/dL [facility] Interpretation and review of laboratory results Abnormal [facility] Ketones (U) [Mass/Vol] Negative NEGAT REHAN mg/dL [facility] Leukocyte esterase Auto test strip Ql (U) Negative NEGATIVE [facility] Mucus Auto (Urine sed) [#/Area] 1+ Reference range not established. /LPF [facility] Nitrite Auto test strip Ql (U) Negative NEGATIVE [facility] pH (U) 5.0 [pH] 5.0, 5.5, 6.0, 6.5, 7.0, 7.5, 8.0 [facility] Protein (U) [Mass/Vol] Negative NEGAT REHAN mg/dL [facility] RBC (U) [#/Vol] SMALL (1+) Abnormal NEGATIVE [facility] RBC Auto (Urine sed) [#/Area] 6-10 Abnormal NONE, 1-2, 3-5 /HPF [facility] Specific gravity (U) [Rel density] 1.023 1.005 - 1.035 [facility] Urobilinogen (U) [Mass/Vol] mg/dL NINF - 2.0 mg/dL [facility] WBC Auto (Urine sed) [#/Area] 1-5 1-5, NONE /HPF [facility] Absolute lymphocyte countOrd ered By: Michelle Guzman on 02-12-2023 Lymphocytes Auto (Unsp spec) [#/Vol] 2.66 10*3/uL 0.83-4.51 [facility] Basophil percentageOrdered B y: Michelle Guzman on 02-12-2023 Basophils/100 WBC (Bld) 0.9 % 0-1 [facility] Eosinophils/100 WBC (Bld) 2.5 % 0-5 [facility] Neutrophils (Bld) [#/Vol] 4.1 10*3/uL 2.0-7.7 [facility] Neutrophils/100 WBC (Bld) 53.8 % 47-70 [facility] WBC (Bld) [#/Vol] 7.5 10*3/uL 4.4-11.0 [facility] Blood erythrocytes count (nu mber/volume)Ordered By: Michelle Guzman on 02-12-2023 RBC (Bld) [#/Vol] 4.69 10*6/uL 4.2-5.4 [facility] Blood hemoglobin measurement (mass/volume)Ordered By: Michelle Guzman on 02-12-2023 Hemoglobin (Bld) [Mass/Vol] 13.3 g/dL 12.0-15.0 [facility] Blood lymphocytes/100 leukoc ytesOrdered By: Michelle Guzman on 02-12-2023 Lymphocytes/100 WBC (Bld) 35.3 % 19-41 [facility] Blood monocytes/100 leukocyt esOrdered By: Michelle Guzman on 02-12-2023 Monocytes/100 WBC (Bld) 7.2 % 0-10 [facility] Blood platelet mean volumeOr dered By: Michelle Guzman on 02-12-2023 Platelet mean volume (Bld) [Entitic vol] 9.5 fL 6.2-12.0 [facility] Determination of erythrocyte mean corpuscular volume (MCV)Ordered By: Michelle Guzman on 02-12-2023 MCV (RBC) [Entitic vol] 89.3 fL 81-99 [facility] Hematocrit Auto (Bld) [Volum e fraction]Ordered By: Michelle Guzman on 02-12-2023 Hematocrit (Bld) [Volume fraction] 41.9 % 37-47 [facility] Laboratory - Chemistry and C hemistry - challengeOrdered By: Michelle Guzman on 02-12-2023 Cobalamin (Vitamin B12) [Mass/Vol] 308 pg/mL 211-911 [facility] - Hematology and Cell countsOrdered By: Michelle Guzman on 02-12-2023 Erythrocyte distribution width (RBC) [Entitic vol] 43.3 fL 35.1-43.9 [facility] Erythrocyte distribution width (RBC) [Ratio] 13.2 % 11.6-14.6 [facility] Immature granulocytes/100 WBC (Bld) 0.300 % 0.0-0.9 [facility] Comment on above: IG% - Immature Granu locytes (promyelocytes, myelocytes and metamyelocytes) > 1% indicates that a LEFT SHIFT is Present. MCH (RBC) [Entitic mass] 28.4 pg 27.0-32.0 [facility] Nucleated RBC/100 WBC (Bld) [Ratio] 0 % 0-5 [facility] MCHC Auto (RBC) [Mass/Vol]Or dered By: Michelle Guzman on 02-12-2023 MCHC (RBC) [Mass/Vol] 31.7 g/dL 32-36 [facility] No Panel InformationOrdered By: Michelle Guzman on 02-12-2023 Miscellaneous Test See comment [facility] Comment on above: Sent directly to [facility] facility per ordering physician. Thyroid Stimulating Hormone (TSH) 1.46 uIU/mL 0.358-3.74 [facility] Vitamin D 25-Hydroxy 29.1 ng/mL [facility] Comment on above: Vitamin D 25(OH) Sta tus Range Deficiency <20 ng/mL (50nmol/L) Insufficiency 20 - 30 ng/mL (50 - 75 nmol/L) Sufficiency 30 - 100 ng/mL (75 - 250 nmol/L) Toxicity >100 ng/mL (>250 nmol/L) Platelets bldOrdered By: Agustina Guzman on 02-12-2023 Platelets (Bld) [#/Vol] 246 10*3/uL 150-450 [facility] Whole blood hemoglobin A1c/t otal hemoglobin ratio (mass fraction)Ordered By: Michelle Guzman on 02-12-2023 HbA1c (Bld) [Mass fraction] 5.4 % 3.8-5.6 [facility] Comment on above: Normal < 5.7 % Predi abetic 5.7 - 6.4 % Diabetic >or= 6.5 % Please note range changes. Progress Noteon 01-14-2023 Clinical Engineer Authentication Interface Message Text Chief Complaint Patient presents with Strabismus Post-op Exam History of Presenting Problem: HPI Strabismus Laterality: both eyes Onset: chronic Duration: years Movement: turning out Context: random times Course: stable Treatments tried: glasses and surgery Comments PO EOM 01/10. Parent states that Pt is doing well after surgery. Sleeping and eating well. Using Tobradex 4 times a day. States that she is seeing double specially for driving. States that she's in a lot pain right now. 9/10 scale. Last edited by Army Misha on 01/14/2023 11:16 AM. Ocular History: Ocular History Glasses Yes Headaches Yes Refractive Error Yes Strabismus Yes Past Medical History: History reviewed. No pertinent past medical history. Past Surgical History: Procedure Laterality Date STRABISMUS SURGERY Review of Systems: Review of Systems Constitutional: Negative for fever. HENT: Negative for congestion. Eyes: Positive for blurred vision, double vision, pain and redness. Negative for discharge. Respiratory: Negative for cough. Gastrointestinal: Negative for vomiting. Skin: Negative for rash. Neurological: Negative for headaches. Endo/Heme/Allergies: Negative for environmental allergies. A complete ROS was performed. Pertinent positives have been documented above or are in the HPI. All other systems were negative. Allergies: Not on File Medications: Current Outpatient Medications Medication Sig Dispense Refill tobramycin-DexAMETHaso ne (TOBRADEX) 0.3-0.1 % ophthalmic solution instill 1 Drop into both eyes 4 times daily for 14 days 5 mL 1 acetaminophen (TYLENOL) 325 MG tablet Take 2 Tablets (650 mg) by mouth every 6 hours as needed for Pain for up to 7 days 56 Tablet 0 ibuprofen (MOTRIN) 600 MG tablet Take 1 Tablet (600 mg) by mouth every 6 hours as needed for Pain for up to 7 days 28 Tablet 0 FLUoxetine HCl (PROZAC PO) Take by mouth topiramate (TOPAMAX) 25 MG tablet Take by mouth 2 times daily Cetirizine HCl (ZYRTEC ALLERGY PO) Take by mouth ARTIFICIAL TEARS SOLN Apply to eye No current facility-administered medications for this visit. Family Medical History: Family History Problem Relation Age of Onset Amblyopia Neg Hx Blindness Neg Hx Cataracts Neg Hx ChildHD Cataract Neg Hx Diabetes Neg Hx Glasses BF 6 Y/O Neg Hx Glaucoma Neg Hx Hypertension Neg Hx Macular Degen Neg Hx Patching Treatment Neg Hx Ptosis Neg Hx Retinal Detachment Neg Hx Social History: Social History Social History Socioeconomic History Marital status: Spouse name: None Number of children: None Years of education: None Highest education level: None Tobacco Use Smoking status: Never Smokeless tobacco: Never Exam: Physical Exam Base Eye Exam Visual Acuity (HOTV - Blocked) Dist cc Right 20/200 Left 20/200 Both 20/150 Correction: Glasses Tonometry (I Care, 11:23 AM) Pressure Right 17 Left 15 Pupils Pupils Right PERRL Left PERRL Extraocular Movement Right -- -- -- 0 0 -- -- -- Left -- -- -- 0 0 -- -- -- Strabismus Exam Distance Near Near +3DS N Bifocals E(T) 4 Ortho - - - - - - - - - - - - 0 0 0 0 - - - - - - - - - - - - Monocular diplopia OS Slit Lamp and Fundus Exam External Exam Right Left External Normal Normal Slit Lamp Exam Right Left Lids/Lashes Normal Normal Conjunctiva/Sclera MARTHA MARTHA Cornea Clear Clear Anterior Chamber Deep and quiet Deep and quiet Iris Round and reactive Round and reactive Lens Clear Clear Anterior Vitreous Normal Normal Fundus Exam Good rr ou Refraction Wearing Rx Sphere Cylinder [place] Horz Prism Right -2.25 +0.50 100 Left -2.00 +0.75 090 2.00IN Type: SVL Impression/Plan/Recomm endations: 1. Exotropia 2. Diplopia 3. Myopic astigmatism, unspecified laterality 4. Blurred vision 5. Amblyopia, bilateral 6. History of strabismus surgery 36 yoF S/P BLRc Doing well, excellent post op alignment Continue gtts as scheduled Pt reports intermittent diplopia, endorses monocular diplopia OS that was present prior to surgery Will monitor Patch provided in office for symptomatic relief F/U 3 months or sooner PRN Normal [facility] Progress Noteon 01-10-2023 Clinical Engineer Authentication Interface Message Text Date: 01/10/2023 Patient: Anahi Dwyer Date of : 1985 Service: Ophthalmology Surgeon: Anthony Moffett DO Corner Cutter: none Preoperative Diagnosis: Exotropia - Alternating Postoperative Diagnosis: Same Procedure: Bilateral Lateral Rectus Recession 8.0 mm Anesthesia: General Complications: None EBL: Minimal SPECIMENS: None. LOCATION: [facility] Indications for Procedure: Anahi Dwyer is a 37 y.o. female with a history of exotropia who was seen previously in the [facility]. The risks, benefits, and alternatives of operative repair were discussed with the parents(s) and informed consent was obtained. Procedure: On the day of surgery the patient was seen in the preop area where the correct procedure was verified with the parent(s) and the operative eye(s) was marked. The patient was then taken to operative suite where general anesthesia was induced. A time out was performed and the correct patient, operation, and eyes were confirmed with the hearing aid assistant and the operative staff. The eyes were then prepped and draped in the usual sterile fashion for ocular surgery. A speculum was placed in the right eye. A locking forcep was placed at the inferotemporal limbus and the eye was then rotated superonasally. An incision through conjunctiva and tenon's capsule was made using braden scissors inferotemporally. A small and then large hook was used to isolate the lateral rectus muscle and the insertion was then cleaned of any tenon's adhesions using braden scissors. A double armed, 6-0 vicryl suture was then used to secure the muscle with locking bites to the upper and lower poles. The muscle was then disinserted from the globe using braden scissors and then reattached approximately 8.0 mm posterior to the original insertion using partial thickness scleral bites. Good muscle spread without central sag was observed. Hemostasis was achieved using gentle cautery. The conjunctiva and tenon's was then closed using multiple interrupted 8-0 vicryl sutures. The subconjunctival space was irrigated with 0.5-1.0 cc of 0.5% marcaine. The speculum was then removed from the right eye and placed in the left at which time the exact same procedure, a lateral rectus recession of 8.0 mm, was performed. The speculum was removed and the drapes were removed. Tobradex drops were placed in the operative eye(s) and the patient was taken to the recovery area in good condition. DO Dl Huerta [facility] Progress Noteon 01-03-2023 Clinical Engineer Authentication Interface Message Text Chief Complaint Patient presents with Strabismus Eye Pain History of Presenting Problem: HPI Strabismus Laterality: both eyes Onset: present since childhood Duration: years Movement: turning out Course: gradually worsening Associated symptoms: headaches Treatments tried: patching and glasses Eye Pain Laterality: In right eye Quality: throbbing Pain scale: 6/10 Frequency: intermittently Duration: 2 months Associated symptoms: photophobia and headaches. Negative for discharge and redness Treatments tried: glasses Comments Sx sched 01/10/23, Here for pre op measurements Using AT PRN Last edited by Kandice Mcconnell MA on 01/03/2023 8:27 AM. Ocular History: Ocular History Glasses Yes Headaches Yes Strabismus Yes Past Medical History: No past medical history on file. No past surgical history on file. Review of Systems: Review of Systems Constitutional: Negative for fever. HENT: Negative for congestion. Eyes: Positive for blurred vision and double vision. Negative for discharge and redness. Respiratory: Negative for cough. Gastrointestinal: Negative for vomiting. Skin: Negative for rash. Neurological: Negative for headaches. Endo/Heme/Allergies: Negative for environmental allergies. A complete ROS was performed. Pertinent positives have been documented above or are in the HPI. All other systems were negative. Allergies: Not on File Medications: Current Outpatient Medications Medication Sig Dispense Refill FLUoxetine HCl (PROZAC PO) Take by mouth topiramate (TOPAMAX) 25 MG tablet Take by mouth 2 times daily Cetirizine HCl (ZYRTEC ALLERGY PO) Take by mouth ARTIFICIAL TEARS SOLN Apply to eye No current facility-administered medications for this visit. Family Medical History: Family History Problem Relation Age of Onset Amblyopia Neg Hx Blindness Neg Hx Cataracts Neg Hx Social History: Social History Social History Socioeconomic History Marital status: Spouse name: None Number of children: None Years of education: None Highest education level: None Tobacco Use Smoking status: Never Smokeless tobacco: Never Exam: Physical Exam Base Eye Exam Visual Acuity (HOTV - Blocked) Dist cc Right 20/150 Left 20/150 Both 20/70 Correction: Glasses Tonometry (I Care, 8:33 AM) Pressure Right 15 Left 15 Pupils Pupils Right PERRL Left PERRL Extraocular Movement Right Full Left Full Dilation Both eyes: 2.5% Phenylephrine, 1.0% Mydriacyl @ 8:58 AM Additional Tests Stereo Fly: + Animals: 0/3 Circles: 0/9 Strabismus Exam Method: Alternate cover Correction: sc Distance Near Near +3DS N Bifocals XT 40 rev 45 XT' 60 0 0 0 XT 40 0 0 0 LHT 4 XT 40 0 0 XT 40 0 0 XT 40 LHT 4 LHT 4 LHT 4 0 0 0 XT 40 0 0 0 LHT 4 R Tilt L Tilt XT 25 XT 25 RHT 2 LHT 4 AHP: Yes: slight right tilt Reports closing eyes for a few minutes resolves monocular diplopia Slit Lamp and Fundus Exam External Exam Right Left External Normal Normal Slit Lamp Exam Right Left Lids/Lashes Normal Normal Conjunctiva/Sclera White and quiet White and quiet Cornea Clear Clear Anterior Chamber Deep and quiet Deep and quiet Iris Round and reactive Round and reactive Lens Clear Clear Anterior Vitreous Normal Normal Fundus Exam Right Left Disc Normal Normal Macula Normal Normal Vessels Normal Normal Periphery Normal Normal Refraction Wearing Rx Sphere Cylinder [place] Horz Prism Right -2.25 +0.50 098 Left -2.00 +0.79 081 2.00IN Type: SVL Manifest Refraction (Auto) Sphere Cylinder [place] Right -1.75 +0.75 092 Left -2.00 +1.00 081 Cycloplegic Refraction (Subjective) Sphere Cylinder [place] Dist VA Right -2.00 +0.50 092 20/150 Left -2.25 +0.75 083 20/150 Impression/Plan/Recomm endations: 1. Exotropia 2. Diplopia 3. Myopic astigmatism, unspecified laterality 4. Blurred vision 5. Amblyopia, bilateral 36 yoF Here for pre op measurements Exam stable, f/u for EOM sx as scheduled - BLRc Best corrected VA poor again today Encouraged follow up with a scheduling administrator for further evaluation as pt without a diagnosis or known reason for poor VA Normal [facility] Progress Noteson 09-19-2022 Clinical Engineer Authentication Interface Message Text ----- September at 3:59:46 PM ----- ----- Provider: Blayne Vásquez, Fellow -- Clinic: [place] ----- Reevaluation for trigger point injections cycle 2 #1 Referring physician: Nicola Glez DO Overall feeling better -- overall stable although still headaches On exam, stiff and tender muscles of neck, although tenderness and palpable knots in masseters overall improved BP 105/55 P 76 Plan: Trigger point injections: done today, prep with alcohol, IFC signed. Explained risks and benefits, including pain, swelling, hemorrhage, CN VII involvement. Mepivacaine 3% on bilateral, masseter (0.3 cc), temporalis tendon extraoral (0.1 cc), temporalis tendon intraoral (0.1 cc), temporalis anterior (0.1 cc), occipital (0.1 cc), SCM (0.1 cc) Rested 5 min to observe for AEs. Discussion/Counseling: discussed and encouraged habit awareness, warm compresses, massage at home discuss PT at next visit sent refills for baclogen 10mg Qhs NV: TPI cycle 2 #2 Teaching Attending Note: I saw and evaluated the patient. I personally obtained the espinal and critical portions of the history and physical exam. I reviewed the resident's /fellow's documentation and discussed the patient with the resident. I agree with the resident's medical decision making as documented in the resident's note. ----- Signed on Tuesday, September 20, 2022 at 6:39:53 AM ----- ----- Provider: Shae Tineo DMD -- Clinic: [place] ----- Normal [facility] Progress Noteon 08-27-2022 Clinical Engineer Authentication Interface Message Text Chief Complaint Patient presents with Strabismus Headache Diplopia History of Presenting Problem: HPI Strabismus Laterality: both eyes Onset: present since childhood Duration: years Movement: turning out Course: gradually worsening Associated symptoms: headaches Treatments tried: patching and glasses Headache Laterality: Temporal Quality: pressure Pain scale: 7/10 Frequency: constantly Timing: throughout the day Duration: 1 year Course: gradually worsening Associated symptoms: photophobia. Negative for swelling Treatments tried: analgesics Response to treatment: mild improvement Diplopia Quality: vertical (And horizontal ) Duration: years Frequency: constantly Timing: when tired Associated symptoms: headaches Treatments tried: glasses Comments Referred by Dr Any Mireles for strabismus. States that her eyes are wandering since 6 yrs old. States that she wore eye patch for 5 months years ago. Last eye exam was April 2022. States that sometimes she feel pressure in her eyes. States that she take medicines for headaches and sometimes help. ( Sumatriptan) Last edited by Army Misha on 08/27/2022 12:55 PM. Ocular History: Ocular History Glasses Yes Headaches Yes Strabismus Yes Past Medical History: No past medical history on file. No past surgical history on file. Review of Systems: ROS A complete ROS was performed. Pertinent positives have been documented above or are in the HPI. All other systems were negative. Allergies: Not on File Medications: No current outpatient medications on file. No current facility-administered medications for this visit. Family Medical History: Family History Problem Relation Age of Onset Amblyopia Neg Hx Blindness Neg Hx Cataracts Neg Hx Social History: Social History Social History Socioeconomic History Marital status: Exam: Physical Exam Base Eye Exam Visual Acuity (HOTV - Blocked) Dist cc Dist ph cc Near cc Right 20/150 20/150 J10 Left 20/200 20/150 J10 Correction: Glasses Still diplopia with pinhole OS Tonometry (I Care, 1:07 PM) Pressure Right 18 Left 16 Visual Peterson Right Left Extraocular Movement Right Full Left Full Additional Tests Color Pt. saw pags 1,5,7,10 OU Stereo Fly: + Animals: 2/3 Circles: 0/9 [place] 4 Dot Distance: Suppression Left Eye Near: Diplopia Strabismus Exam Distance Near Near +3DS N Bifocals XT' 30 0 0 0 XT 30 0 0 0 LHT 4 XT 25 0 0 XT 25 0 0 XT 25 LHT 4 LHT 4 LHT 4 0 0 0 XT 25 0 0 0 LHT 4 R Tilt L Tilt XT 25 XT 25 RHT 2 LHT 4 AHP: Yes: slight right tilt Monocular horizontal diplopia OS today No monocular diplopia OD today Reports closing eyes for a few minutes resolves monocular diplopia Slit Lamp and Fundus Exam External Exam Right Left External Normal Normal Slit Lamp Exam Right Left Lids/Lashes Normal Normal Conjunctiva/Sclera White and quiet White and quiet Cornea Clear Clear Anterior Chamber Deep and quiet Deep and quiet Iris Round and reactive Round and reactive Lens Clear Clear Anterior Vitreous Normal Normal Fundus Exam Right Left Disc Normal Normal Refraction Wearing Rx Sphere Cylinder [place] Horz Prism Right -2.25 +0.50 098 Left -2.00 +0.79 081 2.00IN Age: 4m Type: SVL Manifest Refraction Sphere Cylinder [place] Dist VA Right -2.25 +0.50 105 20/150 Left -2.00 +0.50 050 20/150 Dry refraction Impression/Plan/Recomm endations: 1. Exotropia 2. Diplopia 3. Myopic astigmatism, unspecified laterality 4. Blurred vision 5. Amblyopia, bilateral 36 yoF Exotropia and diplopia Pt reports worsening of symptoms Discussed binocular vs monocular diplopia and that EOM sx will not alleviate monocular diplopia Monocular diplopia does improve with eyelid closure for a few minutes - recommend trying artificial tears to see if episodes of dry eye contributes to symptoms Pt interested in pursuing EOM sx I discussed the risks benefits and alternatives of operative correction with the parent(s)/guardian(s)/ fork lift mechanic(s). The risks may include but are not limited to: 1. Loss of vision - partial or complete 2. Loss of eye 3. Hemorrhage 4. Reoperation 5. Infection 6. Loss of Life I reviewed the risks, benefits and options with the patient/family for their elective surgery that may require hospitalization during the COVID-19 pandemic. This included the potential risk of exposure to COVID-19 virus during the surgery and hospital stay. The COVID-19 illness may also occur. Educational material was used and all of the family's questions were answered. Delaying the surgery further is an option that was discussed. The patient/family agreed to proceed with this procedure where the likely benefit outweighs this potential chance of COVID-19 exposure/illness. The benefits may include but are not limited to: 1. Improvement of visual f (more content not included)... Normal [facility] Cardiac Stress Teston 2022 [place]iac [place] [address] [phone], Exercise Stress Test Patient Name: ANAHI DWYER Ordering Physician: Study Date: 08/15/2022 Reading Physician: [id number] Moreno MD MRN/PID: [id number] Supervising Physician: Edil Moreno MD Accession/Order#: [id number] Referring Physician: ARIS MORENO Date of : 1985 PCP: Gender: F Fellow: Admit Date: 08/15/2022 Fellow: Admission Status: Outpatient In Service Educator: Height: 154.94 cm Nurse: N/A Weight: 77.11 kg Carton Catcher: N/A BSA: 1.76 m2 Technologist: Anat Stewart BMI: 32.12 kg/m2 Additional Staff: Age: 36 years cc report to: Patient Location: [facility] Stress Lab cc report to: Study Type: Stress Test-Exercise Treadmill Diagnosis/ICD: R07.9-Chest pain, unspecified Indication: Chest Pain Procedure/CPT: Stress Test Interpretation-[id number]; Stress Test Supervision-[id number] Falls Risk: Low: Patient has low risk for sustaining a fall; environmental safety interventions in place. Study Details: Correct procedure and correct patient verified verbally and with ID Band checked. Patient History: Chest pain, syncope and PVC'S. Allergies: VICODIN. Smoker: Never. Diabetes: No. BMI: Obese >30. Medications: SEE ATTACHED SHEET. The patient did not take medications as prescribed. Patient Performance: The patient exercised to stage IV on a Herman protocol for 9 minutes and 25 seconds, achieving 10.5 METS. The peak heart rate achieved was 165 bpm, which was 90 % of the age predicted target heart rate of 183 bpm. The resting blood pressure was 110/76 mmHg with a heart rate of 60 bpm. The standing blood pressure was 116/77 mmHg with a heart rate of 67 bpm. The patient developed atypical chest pain and shortness of breath during the stress exam. The symptoms resolved with rest 3 minutes into recovery. The blood pressure response was normal. The test was terminated due to: MPHR >85%, dyspnea and chest pain - non-cardiac. Baseline ECG: Resting ECG showed Sinus Arrhythmia. Stress Stage Data: + +--- +------+-------+ HR Sys BP Nuno BP + +--- +------+-------+ Baseline Resting 60 110 76 + +--- +------+-------+ Baseline Standing 67 116 77 + +--- +------+-------+ Stage I 114 158 74 + +--- +------+-------+ Stage II 113 144 68 + +--- +------+-------+ Stage III 147 151 95 + +--- +------+-------+ Stage IV 165 + +--- +------+-------+ Recovery ECG: The heart rate recovery was normal. + +---+---- --+-------+ HR Sys BP Nuno BP + +---+---- --+-------+ Recovery I 130 + +---+---- --+-------+ Recovery II 112 168 95 + +---+---- --+-------+ Recovery III 94 + +---+---- --+-------+ Recovery IV 88 140 82 + +---+---- --+-------+ Recovery V 85 + +---+---- --+-------+ Recovery 87 132 78 + +---+---- --+-------+ Summary: 1. Baseline EKG shows normal sinus rhythm with nonspecific ST-T segment changes. 2. Patient exercised for 9 minutes 25 seconds achieving 10.5 METS. 3. Exercise capacity is average for age. 4. Heart rate response to exercise is normal. Blood pressure response to exercise is normal. 5. With exercise no ST-T segment changes suggestive of ischemia or sustained ventricular arrhythmias are seen. Sensitivity is reduced due to marked artifact seen at peak exercise. 6. Exercise stress EKG appears to be negative for ischemia. 7. Waller treadmill score is 9 (low risk). [id number] Aris Moreno MD Electronically signed on 08/15/2022 at 1:09:05 PM Final Normal [facility] Progress Noteson 06-11-2022 Clinical Engineer Authentication Interface Message Text ----- Saturday, June 11, 2022 at 12:07:08 PM ----- ----- Provider: Cyn Dumont -- Clinic: [place] ----- Trigger point injections cycle 1 # 6 Overall feeling better -- overall improved but still sore on R. On exam, palpable muscle knots masseters bilterally. stiffness of neck overall improved Plan: Trigger point injections: done today, prep with alcohol, IFC signed. Explained risks and benefits, including pain, swelling, hemorrhage, CN VII involvement. Mepivacaine 3% on bilateral, masseter (0.3 cc), temporalis tendon extraoral (0.1 cc), temporalis tendon intraoral (0.1 cc), temporalis anterior (0.1 cc), occipital (0.1 cc), SCM (0.1 cc), and trapezius (0.3 cc). Rested 5 min to observe for AEs. Discussion/Counseling: discussed and encouraged habit awareness, warm compresses, massage at home PT referral in system, discussed scheduling instructions NV: reeval for TPI cycle 2. ----- Signed on Saturday, June 11, 2022 at 1:45:21 PM ----- ----- Provider: [id number] Bal Mejias DDS -- Clinic: [place] ----- Normal [facility] Progress Noteson 05-21-2022 Clinical Engineer Authentication Interface Message Text ----- Saturday, May 21, 2022 at 1:17:09 PM ----- ----- Provider: Blayne Vásquez, Fellow -- Clinic: [place] ----- MUSIC COORDINATOR DELIVERY Patient presents for Irrigation Worker delivery fabricated to the Lower arch. Reviewed patient's medical history. Patient is ready for treatment. An Occlusal Bite Guard was fitted in the patient's mouth. Occlusion checked and adjusted. The patient has been instructed to wear the bite guard at night. The patient has also been encouraged to wear the guard any time they are biting or grinding their teeth. __ Trigger point injections cycle 1 # 5 Overall feeling much better -- still sore but overall improved. On exam, palpable muscle knots masseters bilterally. stiffness of neck overall improved Plan: Trigger point injections: done today, prep with alcohol, IFC signed. Explained risks and benefits, including pain, swelling, hemorrhage, CN VII involvement. Mepivacaine 3% on bilateral, masseter (0.3 cc), temporalis tendon extraoral (0.1 cc), temporalis tendon intraoral (0.1 cc), temporalis anterior (0.1 cc), occipital (0.1 cc), SCM (0.1 cc), and trapezius (0.3 cc). Rested 5 min to observe for AEs. Discussion/Counseling: discussed habit awareness, warm compresses, massage at home NV: TPI cycle 1 # 6; GIRALDO follow ----- Signed on Saturday, May 21, 2022 at 2:19:53 PM ----- ----- Provider: [id number] Bal Mejias DDS -- Clinic: [place] ----- Normal [facility] Progress Noteson 05-07-2022 Clinical Engineer Authentication Interface Message Text ----- Saturday, May 07, 2022 at 1:44:58 PM ----- ----- Provider: Blayne Vásquez, Fellow -- Clinic: [place] ----- Patient presents for trigger point injections cycle 1 # 4 Reports improvement in symptoms immediately after previous TPIs GIRALDO is not back yet On exam, myalgia masseters and SCM bilaterally, tendonitis temporalis bilaterally Plan: Trigger point injections: done today, prep with alcohol, IFC signed. Explained risks and benefits, including pain, swelling, hemorrhage, CN VII involvement. Mepivacaine 3% on bilateral, masseter (0.3 cc), temporalis tendon extraoral (0.1 cc), temporalis tendon intraoral (0.1 cc), temporalis anterior (0.1 cc), occipital (0.1 cc), SCM (0.1 cc), and trapezius (0.3 cc). Rested 5 min to observe for AEs. NV: TPI cycle 1 # 5; GIRALDO delivery if back. ----- Signed on Saturday, May 07, 2022 at 1:47:04 PM ----- ----- Provider: [id number] Bal Mejias DDS -- Clinic: [place] ----- Normal [facility] EEG (Standard)on 04-30-2022 Prabhakar Davenport MD 04/30/2022 2:46 PM EEG Report Indication for Study: Evaluate for possible seizure activity Clinical Summary: Pt is a 36 y.o. year old female presenting with syncopal episodes. Patient is undergoing EEG to evaluate for evidence of seizure activity. Medications reviewed in chart. Conditions of Recording This routine EEG study was performed using a standard 10-20 placement system digital electroencephalographi c array, with data analyzed across multiple montages. A single EKG lead is utilized throughout the study, as is direct video visualization of the patient. Photic stimulation was performed. HV was not performed. The patient is not noted to be sleep deprived. EEG Description Overall the patient's awake background activity consists of moderate voltage primarily alpha activity. There is the presence of a well-developed 10 Hz PDR that is reactive. Sleep features were not seen. Focal slowing is not seen. No sustained significant asymmetry seen between the two hemispheres. Provoking maneuvers were unremarkable. Just after typical recording finished, she began reporting typical symptoms of lightheadedness, followed about 5 minutes later by a migraine-type headache. EEG was resumed. During this period of typical symptoms, there was no change in the background EEG rhythm and no epileptic features were seen. No clear epileptiform discharges are seen. NO Electrographic Seizures are captured. Summary This is a normal EEG obtained during the awake and drowsy state. She had an episode of her typical lightheadedness and feeling like she was going to pass out, followed by a migraine-type headache, with normal EEG during this period. Consider nonepileptic spell but also migraine aura given the symptom progression without EEG change. There are no interictal epileptiform discharges and no seizures seen but this does not rule out a potential diagnosis of epilepsy. Prabhakar Davenport MD Staff Neurologist [facility] [id number], [facility] [id number] Clinic Fax: [phone] 04/30/22 __ [facility] EEG (Standard)Ordered By: Rod Davenport on 04-30-2022 [facility] Work Phone: Progress Noteson 04-23-2022 Clinical Engineer Authentication Interface Message Text ----- Saturday, April 23, 2022 at 2:23:43 PM ----- ----- Provider: Cyn Dumont -- Clinic: [place] ----- Patient presents for trigger point injections cycle 1 # 3 Reports improvement in symptoms immediately after TPI cycle 1 #1 and #2 On exam, myalgia masseters and SCM bilaterally, tendonitis temporalis bilaterally Plan: Trigger point injections: done today, prep with alcohol, IFC signed. Explained risks and benefits, including pain, swelling, hemorrhage, CN VII involvement. Mepivacaine 3% on bilateral, masseter (0.3 cc), temporalis tendon extraoral (0.1 cc), temporalis tendon intraoral (0.1 cc), temporalis anterior (0.1 cc), occipital (0.1 cc), SCM (0.1 cc), and trapezius (0.3 cc). Rested 5 min to observe for AEs. Reports immediate improvement in ability to open mouth right after this TPI session. NV: TPI cycle 1 # 4; GIRALDO delivery if back ----- Signed on Saturday, April 23, 2022 at 4:54:17 PM ----- ----- Provider: [id number] Brown DDS -- Clinic: [place] ----- Normal [facility] [employer] [facility] MR Brain With And Without Co ntraston 04-18-2022 1. No acute intracranial abnormality or abnormal enhancement. 2. Incidental note of prominence of the Meckel's caves bilaterally. This is nonspecific in appearance although it has been described previously idiopathic intracranial hypertension. Clinical correlation is recommended. Workstation ID: [id number] [employer] EXAMINATION: MR BRAIN WITH AND WITHOUT CONTRAST HISTORY: Syncope, recurrent Injury/Trauma or Illness?:Illness/Other How long have you had these symptoms (acute/chronic)?:Acute Reason for exam?:Syncope episodes since 2019 w/headaches and dizziness Type of Exam?:Subsequent/Follo w-up Additional signs and symptoms?:. R55 Syncope, unspecified syncope type Injury/Trauma or Illness?:Illness/Other How long have you had these symptoms (acute/chronic)?:Acute TECHNIQUE: Multiplanar multiecho sequences were performed through the brain utilizing T1 and T2 weighting, as well as T2 gradient echo sequences, and axial diffusion weighted images. 3 planes T1 postcontrast as well as T2 gradient echo sequences, and axial diffusion weighted images. Imaging was performed with and without contrast administration: 15.5 mL of contrast:DOTAREM FINDINGS: Diagnostic Quality: Adequate. The brain sulci and ventricles are overall within normal limits for patient age. No significant white matter changes were noted within the limitation of the study. There is no intraparenchymal mass, mass effect or midline shift is noted. No abnormal extra-axial fluid collections are seen. The basal cisterns are patent. No evidence of acute infarction or definite intracranial hemorrhage within the limitation of the study. No abnormal intracranial enhancement is present. Incidental note of prominence of the Meckel caves bilaterally. Vascular Flow Voids: Normal. Paranasal Sinuses and Mastoid Air Cells: Grossly clear. Orbits: No definite masses within the limitations of the study. Extracranial Findings: None. Craniocervical Junction and Skull Base: No tonsillar ectopia or mass is present. [facility] Hillary Blake MD - 04/18/2022 EXAMINATION: MR BRAIN WITH AND WITHOUT CONTRAST HISTORY: Syncope, recurrent Injury/Trauma or Illness?:Illness/Other How long have you had these symptoms (acute/chronic)?:Acute Reason for exam?:Syncope episodes since 2019 w/headaches and dizziness Type of Exam?:Subsequent/Follo w-up Additional signs and symptoms?:. R55 Syncope, unspecified syncope type Injury/Trauma or Illness?:Illness/Other How long have you had these symptoms (acute/chronic)?:Acute TECHNIQUE: Multiplanar multiecho sequences were performed through the brain utilizing T1 and T2 weighting, as well as T2 gradient echo sequences, and axial diffusion weighted images. 3 planes T1 postcontrast as well as T2 gradient echo sequences, and axial diffusion weighted images. Imaging was performed with and without contrast administration: 15.5 mL of contrast:DOTAREM FINDINGS: Diagnostic Quality: Adequate. The brain sulci and ventricles are overall within normal limits for patient age. No significant white matter changes were noted within the limitation of the study. There is no intraparenchymal mass, mass effect or midline shift is noted. No abnormal extra-axial fluid collections are seen. The basal cisterns are patent. No evidence of acute infarction or definite intracranial hemorrhage within the limitation of the study. No abnormal intracranial enhancement is present. Incidental note of prominence of the Meckel caves bilaterally. Vascular Flow Voids: Normal. Paranasal Sinuses and Mastoid Air Cells: Grossly clear. Orbits: No definite masses within the limitations of the study. Extracranial Findings: None. Craniocervical Junction and Skull Base: No tonsillar ectopia or mass is present. IMPRESSION: 1. No acute intracranial abnormality or abnormal enhancement. 2. Incidental note of prominence of the Meckel's caves bilaterally. This is nonspecific in appearance although it has been described previously idiopathic intracranial hypertension. Clinical correlation is recommended. Workstation ID: [id number] [facility] MR Brain With And Without Co ntrastOrdered By: Nam Blake on 04-18-2022 [facility] Work Phone: MR Brain With And Without Co ntraston 04-17-2022 Radiology Study observation (narrative) [facility] Progress Noteson 04-09-2022 Clinical Engineer Authentication Interface Message Text ----- Saturday, April 09, 2022 at 2:09:19 PM ----- ----- Provider: Blayne Vásquez, Fellow -- Clinic: [place] ----- Patient presents for trigger point injections cycle 1 # 2 Reports improvement in symptoms immediately after TPI cycle 1 #1 Reports tender cervical LAD: on exam, tonsillitis. Denies sore throat. Recommend supportive treatment and reevaluation. On exam, myalgia masseters and SCM bilaterally, tendonitis temporalis bilaterally Plan: Trigger point injections: done today, prep with alcohol, IFC signed. Explained risks and benefits, including pain, swelling, hemorrhage, CN VII involvement. Mepivacaine 3% on bilateral, masseter (0.3 cc), temporalis tendon extraoral (0.1 cc), temporalis tendon intraoral (0.1 cc), temporalis anterior (0.1 cc), occipital (0.1 cc), SCM (0.1 cc), and trapezius (0.3 cc). Rested 5 min to observe for AEs. NV: TPI cycle 1 # 3 ----- Signed on Saturday, April 09, 2022 at 3:53:40 PM ----- ----- Provider: [id number] Bal Mejias DDS -- Clinic: [place] ----- Normal [facility] [employer] [facility] Progress Noteson 03-25-2022 Clinical Engineer Authentication Interface Message Text ----- Friday, March 25, 2022 at 11:14:13 AM ----- ----- Provider: [id number] Cyn Castro -- Clinic: [place] ----- Patient presents for follow up of facial pain after 6 weeks on tizanidine 4 mg Qhs. S: Reports improvement in symptoms, attributes to muscle relaxant and chiropractor. O: Taking topiramate and sumatriptan for headache. On exam today, myalgia and myospasm persist (bilateral masseter, temporalis posterior, trapezius), temporalis tendon (bilateral), R > L A/P: - continue tizanidine 4mg - continue muscle relaxants - lower GIRALDO -- impressed today - consider TPI -- offered and chosen by patient trigger point injections cycle 1 # 1 Plan: Trigger point injections: done today, prep with alcohol, IFC signed. Explained risks and benefits, including pain, swelling, hemorrhage, CN VII involvement. Mepivacaine 3% on bilateral, masseter (0.3 cc), temporalis tendon extraoral (0.1 cc), temporalis tendon intraoral (0.1 cc) and trapezius (0.3 cc) Rested 5 min to observe for AEs. NV: TPI cycle 1 # 2 ----- Signed on Saturday, March 26, 2022 at 7:04:00 AM ----- ----- Provider: Shae Tineo DMD -- Clinic: [place] ----- Normal [facility] Cobalamin (Vitamin B12) [Mas s/Vol]on 03-18-2022 Interpretation and review of laboratory results Normal [facility] Comprehensive metabolic 2000 panelon 03-18-2022 Albumin [Mass/Vol] 3.8 g/dL 3.2 - 5.2 g/dL [facility] ALP [Catalytic activity/Vol] 171 U/L High 40 - 140 U/L [facility] ALT [Catalytic activity/Vol] 124 U/L High 14 - 65 U/L [facility] Anion gap [Moles/Vol] 9 mmol/L Low 10 - 2 0 mmol/L [facility] AST [Catalytic activity/Vol] 57 U/L High 0 - 45 U/L [facility] Bilirubin [Mass/Vol] 0.2 mg/dL 0.0 - 1 .3 mg/dL [facility] Calcium [Mass/Vol] 9.0 mg/dL 8.4 - 10. 2 mg/dL [facility] Chloride [Moles/Vol] 108 mmol/L 98 - 10 8 mmol/L [facility] Creatinine [Mass/Vol] 0.66 mg/dL 0.40 - 1.10 mg/dL [facility] GFR/1.73 sq M.predicted CKD-EPI (S/P/Bld) [Vol rate/Area] 117 - PINF [facility] Comment on above: Estimated GFR was ca lculated using the 2020 CKD-EPI creatinine equation. Glucose [Mass/Vol] 148 mg/dL High 65 - 99 mg/dL [facility] HCO3 [Moles/Vol] 26 mmol/L 21 - 32 mmol/L [facility] Potassium [Moles/Vol] 3.8 mmol/L 3.5 - 5.1 mmol/L [facility] Protein [Mass/Vol] 6.9 g/dL 6.0 - 8.0 g/dL [facility] Sodium [Moles/Vol] 139 mmol/L 135 - 145 mmol/L [facility] Urea nitrogen [Mass/Vol] 12 mg/dL 8 - 25 mg/dL [facility] Urea nitrogen/Creatinine [Mass ratio] 18.2 mg/mg 10.0 - 20.0 [facility] has implemented the eGFR calculation approach that does not have a coefficient for race that conforms to the NKF-ASN Task Force Recommendations. [facility] Folateon 03-18-2022 Folate [Mass/Vol] 11.8 ng/mL 3.1 - 17.5 ng/mL [facility] Comment on above: Deficient <2.2 Borderline 2.2 - 3.0 Excessive >17.5 Folate [Mass/Vol]on 03-18-20 Interpretation and review of laboratory results Normal [facility] Lipid 1996 panelon Cholesterol [Mass/Vol] 176 mg/dL 100 - 199 mg/dL [facility] Comment on above: National Cholesterol Education Program Guidelines: Cholesterol Desirable: <200 mg/dL Borderline High: 200-239 mg/dL High: greater than or equal to 240 mg/dL Cholesterol in HDL [Mass/Vol] 35 mg/dL Low 40 - 59 mg/dL [facility] Comment on above: National Cholesterol Education Program Guidelines: HDL Cholesterol Low: <40 mg/dL Near Optimal: 40-59 mg/dL High: greater than or equal to 60 mg/dL Cholesterol in LDL [Mass/Vol] 90 mg/dL 10 - 130 mg/dL [facility] Comment on above: National Cholesterol Education Program Guidelines: LDL Cholesterol Optimal: <100 mg/dL Near Optimal/above Optimal: 100-129 mg/dL Borderline High: 130-159 mg/dL High: 160-189 mg/dL Very High: greater than or equal to 190 mg/dL Cholesterol non HDL [Mass/Vol] 141 mg/dL [facility] Comment on above: National Cholesterol Education Program Guidelines: NON HDL Cholesterol Desirable: <130 mg/dL Borderline High: 130-159 mg/dL High: 160-189 mg/dL Very High: > or = 190 mg/dL Cholesterol.total/Chol esterol in HDL [Mass ratio] 5.0 {ratio} ratio [facility] Comment on above: Female Cholesterol/H DL Ratio: Average risk: 4.4 1/2 average risk: 3.3 2 x average risk: 7.1 Triglyceride [Mass/Vol] 256 mg/dL High 30 - 150 mg/dL [facility] Comment on above: National Cholesterol Education Program Guidelines: Triglyceride Normal: <150 mg/dL Borderline High: 150-199 mg/dL High: 200-499 mg/dL Very High: greater than or equal to 500 mg/dL No Panel Informationon 03-18 Interpretation and review of laboratory results Abnormal [facility] TSH DL <= 0.005 mIU/L Qnon 1 05-18-2021 Interpretation and review of laboratory results Normal [facility] TSH Qn 1.04 m[IU]/L [facility] Vitamin B12on 03-18-2022 Cobalamin (Vitamin B12) [Mass/Vol] 503 pg/mL 193 - 986 pg/mL [facility] Echocardiogramon 03-06-2022 [place] [address] [phone], TRANSTHORACIC ECHOCARDIOGRAM REPORT Patient Name: ANAHI DWYER Reading Physician: [id number] Zac Davis MD Study Date: 03/06/2022 Referring Physician: ARIS MORENO MRN/PID: [id number] PCP: Accession/Order#: [id number] Department Location: [facility] Echo Lab Date of : 1985 Fellow: Gender: F Nurse: Shama Talley RN Admit Date: Carton Catcher: Bernardo Parrish [facility] Admission Status: Outpatient Additional Staff: Height: 154.94 cm CC Report to: Weight: 79.38 kg Study Type: Echocardiogram BSA: 1.78 m2 Blood Pressure: 120 /78 mmHg Diagnosis/ICD: S53-[id number] Indication: Procedure/CPT: Echo Complete w Full [id number] Study Detail: The following Echo studies were performed: 2D, M-Mode, Doppler and color flow. Agitated saline used as a contrast agent for intraseptal flow evaluation. PHYSICIAN INTERPRETATION: Left Ventricle: Left ventricular systolic function is normal. There are no regional wall motion abnormalities. The left ventricular cavity size is normal. Spectral Doppler shows a normal pattern of left ventricular diastolic filling. Left Atrium: The left atrium is normal in size. A bubble study using agitated saline was performed. Bubble study is negative. Right Ventricle: The right ventricle is normal in size. There is normal right ventricular global systolic function. Right Atrium: The right atrium is normal in size. Aortic Valve: The aortic valve is trileaflet. There is mild aortic valve thickening. There is no evidence of aortic valve regurgitation. The peak instantaneous gradient of the aortic valve is 8.0 mmHg. The mean gradient of the aortic valve is 5.0 mmHg. Mitral Valve: The mitral valve is normal in structure. There is trace mitral valve regurgitation. Tricuspid Valve: The tricuspid valve is structurally normal. No evidence of tricuspid regurgitation. Pulmonic Valve: The pulmonic valve is structurally normal. There is no indication of pulmonic valve regurgitation. Pericardium: There is no pericardial effusion noted. Aorta: The aortic root is normal. CONCLUSIONS: 1. Left ventricular systolic function is normal. QUANTITATIVE DATA SUMMARY: 2D MEASUREMENTS: Normal Ranges: Ao Root d: 2.80 cm (2.0-3.7cm) LAs: 2.50 cm (2.7-4.0cm) IVSd: 0.81 cm (0.6-1.1cm) LVPWd: 0.68 cm (0.6-1.1cm) LVIDd: 4.26 cm (3.9-5.9cm) LVIDs: 2.92 cm LV Mass Index: 52.8 g/m2 LV % FS 31.5 % LA VOLUME: Normal Ranges: LA Vol A4C: 30.8 ml (22+/-6mL/m2) LA Vol A2C: 25.3 ml LA Vol BP: 30.1 ml LA Vol Index A4C: 17.3ml/m2 LA Vol Index A2C: 14.2 ml/m2 LA Vol Index BP: 16.9 ml/m2 LA Area A4C: 13.9 cm2 LA Area A2C: 11.7 cm2 LA Major [place] A4C: 5.3 cm LA Major [place] A2C: 4.6 cm LA Volume Index: 16.7 ml/m2 LA Vol A4C: 29.3 ml LA Vol A2C: 24.9 ml LV SYSTOLIC FUNCTION BY 2D PLANIMETRY (MOD): Normal Ranges: EF-A4C View: 64.4 % (>=55%) EF-A2C View: 60.5 % EF-Biplane: 61.0 % LV DIASTOLIC FUNCTION: Normal Ranges: MV Peak E: 0.74 m/s (0.7-1.2 m/s) MV Peak A: 0.40 m/s (0.42-0.7 m/s) E/A Ratio: 1.83 (1.0-2.2) MV lateral e' 0.16 m/s MV medial e' 0.09 m/s MITRAL VALVE: Normal Ranges: MV DT: 180 msec (150-240msec) AORTIC VALVE: Normal Ranges: AoV Vmax: 1.41 m/s (<=1.7m/s) AoV Peak P.0 mmHg (<20mmHg) AoV Mean P.0 mmHg (1.7-11.5mmHg) LVOT Max Meng: 1.11 m/s (<=1.1m/s) AoV VTI: 30.10 cm (18-25cm) LVOT VTI: 25.20 cm LVOT Diameter: 1.90 cm (1.8-2.4cm) AoV Area, VTI: 2.13 cm2 (2.5-5.5cm2) AoV Area,Vmax: 2.00 cm2 (2.5-4.5cm2) AoV Dimensionless Index: 0.84 RIGHT VENTRICLE: RV 1 3.53 cm RV 2 2.58 cm RV 3 6.84 cm TAPSE: 20.3 mm RV s' 0.14 m/s PULMONIC VALVE: Normal Ranges: PV Accel Time: 123 msec (>120ms) PV Max Meng: 1.0 m/s (0.6-0.9m/s) PV Max P.8 mmHg [id number] Zac Davis MD Electronically signed on 03/06/2022 at 7:27:59 PM Final [facility] Narrative Note - Outpatient- CPS for bubble studyon 03-06-2022 Narrative Note - Outpatient-CPS for bubble study Narrative Note: Discipline/ClinicCPS for bubble study Description Called to CPS to administer bubbles. Started a 22g IV in the LAC. IV flushed easily. Administered bubble test times 1 as electronics technology department chair instructed. Once test completed IV flushed with NS then dc'ed with angiocath intact and dressing to site. Patient tolerated without complaint. Electronic Signatures: Shama Talley (MIRYAM) (Signed 06-Mar-2022 14:20) Authored: Narrative Note - OP Last Updated: 06-Mar-2022 14:20 by Shama Talley) [facility] Blood Pressure Cuff Sizeon 1 04-28-2021 Fall risk assessment a) No falls within the last year [facility] Work Phone: Tobacco use status CP b) No [facility] Work Phone: Blood Pressure Cuff Size Adult [facility] Work Phone: Office Visit (Internal Medic ine)on 02-26-2022 Follow-up visit Diagnoses/Problems Assessed Hair loss (704.00) (L65.9) Skin tag (701.9) (L91.8) Orders Hair loss Start: Hair Skin AND Nails Gummies 1250-7.5-7.5 MCG-MG-UNT Oral Tablet Chewable; Take 1 vitamin gummy by mouth daily Rx By: Nicola Glez; Dispense: 0 Days ; #:30 Tablet; Refill: 4;For: Hair loss; YESI = N; Verified Transmission to [id number]; Msg to Pharmacy: whatever hair skin and nails vitamin insurance will cover; Last Updated By: DonalOncovision; 02/26/2022 1:40:37 PM Provider Impressions 1. Pt tolerated skin tag removal well with no complications -instructed in aftercare, leave bandage on for 24 hours, keep Vaseline, antibiotic ointment or Aquaphor on it, try to avoid getting deodorant on it until it is healed Chief Complaint 36 y/o female presents for skin excision of her LT axilla States her Prozac was increased to 20 MG History of Present IllnessPatient is here today skin excision. Patient reports that since her last appt she had her Prozac to 20mg po daily by [facility] for the last month. She has a large skin tag in her left axilla that she would like removed. Review of Systems Integumentary: skin lesions. Active Problems Problems Depression (311) (F32.A) Hair loss (704.00) (L65.9) Near syncope (780.2) (R55) PVC's (premature ventricular contractions) (427.69) (I49.3) Vitamin D deficiency (268.9) (E55.9) Past Medical History Problems No pertinent past medical history (V49.89) (Z78.9) Surgical History Problems History of section History of Gallbladder surgery Family History Mother No pertinent family history Father No pertinent family history Other Family history of Patient unsure of family history Social History Problems Daily caffeinated coffee consumption Drinks caffeinated tea No alcohol use No illicit drug use Non-smoker (V49.89) (Z78.9) Allergies Medication Vicodin TABS Recorded By: Rach Ennis; 12/12/2021 2:07:08 PM Current Meds Medication NameInstruction FLUoxetine HCl - 20 MG Oral TabletTAKE 1 TABLET DAILY. 27-0.8 MG Oral TabletTAKE 1 TABLET DAILY DIRECTED. Vitamin D3 125 MCG (5000 UT) Oral TabletTake 1 tablet daily Vitals Vital Signs Recorded: 26Feb2022 01:22PM Heart Rate85 Refzjnze041 Jpvfoxhym59 Blood Pressure Cuff SizeAdult Height5 ft 1 in Uieznc339 lb BMI Gshpsiywuv80.44 kg/m2 BSA Calculated1.79 Tobacco Useb) No Falls Screening (Age 18+)a) No falls within the last year Physical Exam Constitutional General appearance: Alert and in no acute distress. Eyes Inspection of eyes: Sclera and conjunctiva were normal. Pupil exam: Pupils were equal in size. Extraocular movements were intact. Musculoskeletal Examination of gait: Normal. Inspection of digits and nails: No clubbing or cyanosis of the fingernails. Skin Skin and subcutaneous tissue: Abnormal. large 5mm x 3 mm pedunculated skin tag in upper corner of left axilla. Procedure Procedure Note: Anesthesia: xylocaine 1%. The lesion was located on the left axilla. The patient was prepped and draped in the usual sterile fashion using alcohol. snipped with sterile scissors at the base. The base of the wound was cauterized with silver nitrate. antibiotic ointment and bandage applied Signatures Electronically signed by : Nicola Glez DO; Feb 26 2022 2:32PM EST (Author) Normal [facility] Laboratory - Chemistry and C hemistry - challengeon 01-30-2022 TSH Qn 1.44 m[IU]/L See Below MP-Cardiolog y- [address] Work Phone: Comment on above: Reference Range: 0.4 4 - 3.98 TSH testing is performed using different testing methodology at [facility] than at other [facility]. Direct result comparisons should only be made within the same method. Lipid Panelon 01-30-2022 Cholesterol [Mass/Vol] 169 mg/dL 0 - 199 [facility] Work Phone: Comment on above: . AGE DESIRABLE BORD IVETH HIGH HIGH 0-19 Y 0 - 169 170 - 199 >/= 200 20-24 Y 0 - 189 190 - 224 >/= 225 >24 Y 0 - 199 200 - 239 >/= 240 All ranges are based on fasting samples. Specific therapeutic targets will vary based on patient-specific cardiac risk.. Pediatric guidelines reference:Pediatrics 2011, 128(S5). Adult guidelines reference: NCEP ATPIII Guidelines, MICHELLE 2001, 258:2486-97. Venipuncture immediately after or during the administration of Metamizole may lead to falsely low results. Testing should be performed immediately prior to Metamizole dosing. Cholesterol in HDL [Mass/Vol] 34.0 mg/dL Abnormal [facility] Work Phone: Comment on above: . AGE VERY LOW LOW N ORMAL HIGH 0-19 Y < 35 < 40 40-45 ---- 20-24 Y ---- < 40 >45 ---- >24 Y ---- < 40 40-60 >60. Cholesterol in LDL [Mass/Vol] 108 mg/dL above high threshold 0 - 99 [facility] Work Phone: Comment on above: . NEAR BORD AGE ISABELL RABLE OPTIMAL HIGH HIGH VERY HIGH 0-19 Y 0 - 109 --- 110-129 >/= 130 ---- 20-24 Y 0 - 119 --- 120-159 >/= 160 ---- >24 Y 0 - 99 100-129 130-159 160-189 >/=190. Cholesterol.total/Chol esterol in HDL [Mass ratio] 5.0 {ratio} [facility] Work Phone: Comment on above: REF VALUESDESIRABLE < 3.4HIGH RISK > 5.0 Triglyceride [Mass/Vol] 134 mg/dL 0 - 149 [facility] Work Phone: Comment on above: . AGE DESIRABLE BORD IVETH HIGH HIGH VERY HIGH 0 D-90 D 19 - 174 ---- ---- ----91 D- 9 Y 0 - 74 75 - 99 >/= 100 ---- 10-19 Y 0 - 89 90 - 129 >/= 130 ---- 20-24 Y 0 - 114 115 - 149 >/= 150 ---- >24 Y 0 - 149 150 - 199 200- 499 >/= 500. Venipuncture immediately after or during the administration of Metamizole may lead to falsely low results. Testing should be performed immediately prior to Metamizole dosing. Lipid Panel 27 mg/dL 0 - 40 -Cardiology - [place] [facility] Work Phone: Office Visit (Cardiology)on 01-23-2022 Follow-up visit Diagnoses/Problems Assessed Near syncope (780.2) (R55) Orders Near syncope Echocardiogram; Status:Hold For - Scheduling; Requested for:23Jan2022; Lipid Panel; Status:Active; Requested for:23Jan2022; TSH WITH REFLEX TO FREE T4 IF ABNORMAL; Status:Active; Requested for:23Jan2022; Chief Complaint syncope History of Present [id number]-necp-wbc female with a medical history of PVCs, anxiety, IBS, here to establish care regarding the following conditions: Vasovagal syncope -Patient notes that for the past 2 years she has occasional episodes where she reports dizziness/lightheadedn ess -Episodes do not have any clear triggers. They are associated with warmth/diaphoresis to the face, dizziness, and transient episodes of loss of consciousness. Denies any exertional angina or shortness of breath. Although she does admit to chest discomfort that happens randomly; described as sharp lasting a few minutes; changes with position/palpation/res piration. -Denies any orthopnea/PND/lower extremity edema Active Problems Problems Depression (311) (F32.A) Hair loss (704.00) (L65.9) Near syncope (780.2) (R55) PVC's (premature ventricular contractions) (427.69) (I49.3) Vitamin D deficiency (268.9) (E55.9) Surgical History Problems History of section History of Gallbladder surgery Past Medical History Problems No pertinent past medical history (V49.89) (Z78.9) Current Meds Medication NameInstruction FLUoxetine HCl - 10 MG Oral TabletTAKE 1 TABLET DAILY. 27-0.8 MG Oral TabletTAKE 1 TABLET DAILY DIRECTED. Vitamin D3 125 MCG (5000 UT) Oral TabletTake 1 tablet daily Allergies Medication Vicodin TABS Recorded By: Rach Ennis; 12/12/2021 2:07:08 PM Family History Mother No pertinent family history Father No pertinent family history Other Family history of Patient unsure of family history Social History Problems Daily caffeinated coffee consumption Drinks caffeinated tea No alcohol use No illicit drug use Non-smoker (V49.89) (Z78.9) Review of Systems Constitutional: Denies any fever or chills Eyes: Denies any eye pain or blurry vision ENT: Denies any ear pain or hearing loss Cardiovascular: The heart rate is not slow, the heart rate is not fast Respiratory: Denies any asthma/wheezing Gastrointestinal: Denies any jordan colored stools or fatty food intolerance Genitourinary: Denies any blood in the urine or pelvic pain Musculoskeletal: Denies any swelling in the joints or difficulty walking Skin: Denies any skin lumps or skin lesions Neurological: Denies any dizziness/tingling Vitals Vital Signs Recorded: 23Jan2022 03:25PM Heart Rate81 Epblemtz394, RUE Vhsocnxlb27, RUE Height5 ft 1 in Fqhpfx230 lb BMI Ovxpjmjyql86.63 kg/m2 BSA Calculated1.8 Tobacco Useb) No Falls Screening (Age 18+)b) One or more falls in the last year O2 [id number] Physical Exam General: AANDOx3 HEENT: NC/AT; EOMI; PERRLA, external ear is normal Neck: supple; no JVD Chest: CTAB; no wheezing CVS: S1S2 normal, no murmurs Abdomen: Soft, NT/ND, no organomegaly Extremities: no clubbing/cyanosis/yasmin a Neuro: Grossly intact Results/Data Complete Blood Count + [id number] 08:40AMNicola Glez Test NameResultFlagReferenc e White Blood Cell Count6.9 x10E9/L4.4 - 11.3 Red Blood Cell Count5.20 x10E12/LSee Below Reference Range: 4.00 - 5.20 Nucleated Erythrocyte Count0.1 /100 WBC Wdyepaybmb30.7 g/dLSee Below Reference Range: 12.0 - 16.0 HCT44.6 %See Below Reference Range: 36.0 - 46.0 MCV86 fL80 - 100 MCHC33.0 g/dLSee Below Reference Range: 32.0 - 36.0 Platelet Yoxmg088 x10E9/L150 - 450 RDW-CV13.4 %See Below Reference Range: 11.5 - 14.5 Neutrophil %56.8 %See Below Reference Range: 40.0 - 80.0 Lymphocyte %33.7 %See Below Reference Range: 13.0 - 44.0 Monocyte %5.8 %2.0 - 10.0 Eosinophil %2.9 %0.0 - 6.0 Basophil %0.8 %0.0 - 2.0 Neutrophil Count3.90 x10E9/LSee Below Reference Range: 1.20 - 7.70 Percent differential counts (%) should be interpreted in the context of the absolute cell counts (cells/L). Lymphocyte Count2.30 x10E9/LSee Below Reference Range: 1.20 - 4.80 Monocyte Count0.40 x10E9/LSee Below Reference Range: 0.10 - 1.00 Eosinophil Count0.20 x10E9/LSee Below Reference Range: 0.00 - 0.70 Basophil Count0.10 x10E9/LSee Below Reference Range: 0.00 - 0.10 Comprehensive Metabolic [id number] 08:40AMNicola Glez Test NameResultFlagReferenc e Glucose, Yladx289 mg/dLH74 - 99 Sodium, Zouxm109 mmol/L136 - 145 POTASSIUM3.8 mmol/L3.5 - 5.3 Chloride, Eqysc211 mmol/L98 - 107 Bicarbonate, Serum25 mmol/L21 - 32 Anion Gap, Serum12 mmol/L10 - 20 Blood Urea Nitrogen, Serum16 mg/dL6 - 23 CREATININE0.66 mg/dLSee Below Reference Range: 0.50 - 1.05 Calcium, Serum9.5 mg/dL8.6 - 10.3 Albumin, Serum4.4 g/dL3.4 - 5.0 ALKALINE [id number] U/LH33 - 110 Protein, Total Serum7.2 g/dL6.4 - 8.2 Geo (more content not included)... Normal edPULSE Tobacco Screening.on 10-05-2 022 Fall risk assessment b) One or more fall s in the last year [facility] Work Phone: Tobacco use status CPHS b) No NPTV Work Phone: Progress Noteson 01-14-2022 Clinical Engineer Authentication Interface Message Text ----- Friday, January 14, 2022 at 7:14:03 PM ----- ----- Provider: Blayne - Francesca Vásquez, Fellow -- Clinic: [place] ----- Chief complaint - Patient presented with outside referral complaining of bilateral face/TMJ pain also pops and clicks on both sides, painful worse with looking up pain on opening for at least a decade clenching Quality - sharp, discomfort Intensity - 4/5 Duration - 10+ years Frequency - per day Ameliorating - chiropractor Aggravating - wide opening/chewing hard Associated pains - neck pain Headaches - frontal headache Past Treatment - bite guard has been made in [facility] ~2012 - no help No meds for CC Imaging panoramic film: CBCT: None Legal - No legal action in process Sleep duration: 9-10 hours No interruptions Exam PMH: anxiety, strabismus, IBS Meds: prozac Allergies: vicodin (heart racing) Social - Denies EtOH, denies tobacco Habits - denies Physical exam Height: 5-7 ft. weight: 180 lbs. Vitals - BP: 127/88 T: NA P: 78 R: O2: ROS: rhinorrhea, DV, no dysphagia, some muscle pain general Cranial Nerves - II through XII grossly intact Detailed CN V: sensory: R: Normal L:Normal V1-V3 Motor: R: Normal L: Normal Two point discrimination: Not done Directionality: Not done Detailed CN VII: motor R: Normal L: Normal Cervical - NO LAD Balance/Equilibrium - Finger to nose normal response. Romberg: not performed Occlusion: OV: 6 mm OJ: 4mm Wear: fair Midline: Deviated to the L 1 mm Deviation/deflection - L on opening R lateral: 9 mm L lateral: 11 mm Joint palpation: R TMJ dorsal:4/5 lateral:0 intrauaricular: 0 L TMJ dorsal:4/5 lateral:0 intraauricular:0 Joint sounds - R TMJ: None L TMJ: None Loading: R TMJ: ipsilateral pain: - contralateral pain:- L TMJ: ipsilateral pain: - contralateral pain:- Occlusion (self-report): even : + uneven:- Myofascial Exam - Deep masseter: R:4/5 L:4/5 Superficial masseter R:0 L:0 Anterior temp R:0 L:0 Medial/post temp R:0 L:0 Frontal R:0 L:0 Medial pterygoid R:0 L:0 Lateral pterygoid R:0 L:0 Digastric Ant R:0 L:0 Digastric post: R:0 L:0 Temp tendon R:4/5 L:4/5 Occipital R:0 L:0 Splenius R:0 L:0 Scalenes R:0 L:0 Trapezius R:0 L:0 Suprascapular R:0 L:0 SCM R:0 L:0 Stylohyoid R:0 L:0 Presence of trigger areas: None Presence of ANS signs: None Impression: 1. bruxism 2. myofascial pain 3. TTH 4. cervical MFP 5. anterior DD with reduction TMJ bilateral Plan: 1. start tizanidine 4mg 2. follow up 6 weeks 3. consider ENZO NV: 6 week follow up Normal [employer] Complete Blood Count + Diffrafael morales 12-19-2021 Basophils/100 WBC (Bld) 0.8 % 0.0 - 2.0 [facility] Work Phone: Erythrocyte distribution width (RBC) [Ratio] 13.4 % See Below [facility] Work Phone: Comment on above: Reference Range: 11. 5 - 14.5 Hematocrit (Bld) [Volume fraction] 44.6 % See Below [facility] Work Phone: Comment on above: Reference Range: 36. 0 - 46.0 Hemoglobin (Bld) [Mass/Vol] 14.7 g/dL See Below [facility] Work Phone: Comment on above: Reference Range: 12. 0 - 16.0 Lymphocytes/100 WBC (Bld) 33.7 % See Below [facility] Work Phone: Comment on above: Reference Range: 13. 0 - 44.0 MCHC (RBC) [Mass/Vol] 33.0 g/dL See Below [facility] Work Phone: Comment on above: Reference Range: 32. 0 - 36.0 MCV (RBC) [Entitic vol] 86 fL 80 - 100 [facility] Work Phone: Monocytes/100 WBC (Bld) 5.8 % 2.0 - 10.0 [facility] Work Phone: Neutrophils/100 WBC (Bld) 56.8 % See Below [facility] Work Phone: Comment on above: Reference Range: 40. 0 - 80.0 Platelets (Bld) [#/Vol] 227 10*3/uL 150 - 450 [facility] Work Phone: RBC (Bld) [#/Vol] 5.20 {x10E12/L} See Below [facility] Work Phone: Comment on above: Reference Range: 4.0 0 - 5.20 WBC (Bld) [#/Vol] 6.9 10*3/uL 4.4 - 11.3 [facility] Work Phone: Complete Blood Count + Differential 0.10 {x10E9/L} See Below [facility] Work Phone: Comment on above: Reference Range: 0.0 0 - 0.10 Complete Blood Count + Differential 0.20 {x10E9/L} See Below [facility] Work Phone: Comment on above: Reference Range: 0.0 0 - 0.70 Complete Blood Count + Differential 0.40 {x10E9/L} See Below [facility] Work Phone: Comment on above: Reference Range: 0.1 0 - 1.00 Complete Blood Count + Differential 2.30 {x10E9/L} See Below [facility] Work Phone: Comment on above: Reference Range: 1.2 0 - 4.80 Complete Blood Count + Differential 3.90 {x10E9/L} See Below [facility] Work Phone: Comment on above: Reference Range: 1.2 0 - 7.70 Percent differential counts (%) should be interpreted in the context of the absolute cell counts (cells/L). Complete Blood Count + Differential 2.9 % 0.0 - 6.0 [facility] Work Phone: Complete Blood Count + Differential 0.1 {/100_WBC} [facility] Work Phone: Hemoglobin A1Con 12-19-2021 Glucose [Mass/Vol] 117 mg/dL [facility] Work Phone: HbA1c (Bld) [Mass fraction] 5.7 % Abnormal [facility] Work Phone: Comment on above: Diagnosis of Diabete s-Adults Non-Diabetic: < or = 5.6% Increased risk for developing diabetes: 5.7-6.4% Diagnostic of diabetes: > or = 6.5%. Monitoring of Diabetes Age (y) Therapeutic Goal (%) Adults: >18 <7.0 Pediatrics: 13-18 <7.5 7-12 <8.0 0- 6 7.5-8.5 [place] [employer]. Diabetes Care 33(S1), Apr 2009. Laboratory - Chemistry and C hemistry - challengeon 12-19-2021 Albumin BCP dye [Mass/Vol] 4.4 g/dL 3.4 - 5.0 [facility] Work Phone: ALP [Catalytic activity/Vol] 160 U/L above high threshold 33 - 110 [facility] Work Phone: ALT With P-5'-P [Catalytic activity/Vol] 306 U/L above high threshold 7 - 45 [facility] Work Phone: Comment on above: Patients treated wit h Sulfasalazine may generate falsely decreased results for ALT. Anion gap [Moles/Vol] 12 mmol/L 10 - 20 [facility] Work Phone: AST With P-5'-P [Catalytic activity/Vol] 168 U/L above high threshold 9 - 39 [facility] Work Phone: Bilirubin [Mass/Vol] 0.4 mg/dL 0.0 - 1.2 [facility] Work Phone: Calcium [Mass/Vol] 9.5 mg/dL 8.6 - 10.3 [facility] Work Phone: Chloride [Moles/Vol] 105 mmol/L 98 - 107 [facility] Work Phone: CO2 [Moles/Vol] 25 mmol/L 21 - 32 [facility] Work Phone: Creatinine [Mass/Vol] 0.66 mg/dL See Below [facility] Work Phone: Comment on above: Reference Range: 0.5 0 - 1.05 Glucose [Mass/Vol] 136 mg/dL above high threshold 74 - 99 [facility] Work Phone: Iron [Mass/Vol] 108 ug/dL 35 - 150 [facility] Work Phone: Iron binding capacity [Mass/Vol] 382 ug/dL 240 - 445 [facility] Work Phone: Potassium [Moles/Vol] 3.8 mmol/L 3.5 - 5.3 [facility] Work Phone: Protein [Mass/Vol] 7.2 g/dL 6.4 - 8.2 [facility] Work Phone: Sodium [Moles/Vol] 138 mmol/L 136 - 145 [facility] Work Phone: TSH Qn 1.99 m[IU]/L See Below [facility] Work Phone: Comment on above: Reference Range: 0.4 4 - 3.98 TSH testing is performed using different testing methodology at [facility] than at other [facility]. Direct result comparisons should only be made within the same method. Urea nitrogen [Mass/Vol] 16 mg/dL 6 - 23 [facility] Work Phone: No Panel Informationon 12-19 >90 >90 [facility] Work Phone: Comment on above: CALCULATIONS OF SHERWIN MATED GFR ARE PERFORMED USING THE 2020 CKD-EPI STUDY REFIT EQUATION WITHOUT THE RACE VARIABLE FOR THE IDMS-TRACEABLE CREATININE METHODS.https://jasn.asnjournals.org/content/early/A .4311318723 28 % 25 - 45 [facility] Work Phone: Vitamin B12, Serumon 022 Cobalamin (Vitamin B12) [Mass/Vol] 499 pg/mL 211 - 911 [facility] Work Phone: Vitamin D 25-Hydroxyon 12-19 25-hydroxyvitamin D3 [Mass/Vol] 19 ng/mL Abnormal [facility] Work Phone: Comment on above: .DEFICIENCY: < 20 NG /MLINSUFFICIENCY: 20-29 NG/MLSUFFICIENCY: 30-100 NG/MLTHIS ASSAY ACCURATELY QUANTIFIES THE SUM OFVITAMIN D3, 25-HYDROXY AND VIT D2,25-HYDROXY. Blood Pressure Cuff Sizeon 0 12-12-2021 Adult depression screening assessment Yes [facility] Work Phone: Adult depression screening assessment No [facility] Work Phone: Fall risk assessment b) One or more fall s in the last year [facility] Work Phone: Tobacco use status CPHS b) No [facility] Work Phone: Blood Pressure Cuff Size Adult [facility] Work Phone: Office Visit (Internal Medic ine)on 12-12-2021 Follow-up visit Diagnoses/Problems Health Maintenance/Risks Encounter for preventive health examination (V70.0) (Z00.00) Assessed Hair loss (704.00) (L65.9) Near syncope (780.2) (R55) PVC's (premature ventricular contractions) (427.69) (I49.3) Orders Hair loss Iron + TIBC, Serum; Status:Active; Requested for:12Dec2021; Perform:Lab Services - Lab To Draw (Blood Test); Due:12Mar2022;Ordered; For:Hair loss; Ordered By:Nicola Glez; TSH WITH REFLEX TO FREE T4 IF ABNORMAL; Status:Active; Requested for:12Dec2021; Perform:Lab Services - Lab To Draw (Blood Test); Due:12Mar2022;Ordered; For:Hair loss; Ordered By:Niocla Glez; Vitamin B12, Serum; Status:Active; Requested for:12Dec2021; Perform:Lab Services - Lab To Draw (Blood Test); Due:12Mar2022;Ordered; For:Hair loss; Ordered By:Nicola Glez; Vitamin D 25-Hydroxy; Status:Active; Requested for:12Dec2021; Perform:Lab Services - Lab To Draw (Blood Test); Due:12Mar2022;Ordered; For:Hair loss; Ordered By:Nicola Glez; Health Maintenance Complete Blood Count + Differential; Status:Active; Requested for:[id number]; Perform:Lab Services - Lab To Draw (Blood Test); Due:12Mar2022;Ordered; For:Health Maintenance; Ordered By:Nicola Glez; Comprehensive Metabolic Panel; Status:Active; Requested for:12Dec2021; Perform:Lab Services - Lab To Draw (Blood Test); Due:12Mar2022;Ordered; For:Health Maintenance; Ordered By:Nicola Glez; Near syncope Hemoglobin A1C; Status:Active; Requested for:[id number]; Perform:Lab Services - Lab To Draw (Blood Test); Due:12Mar2022;Ordered; For:Near syncope; Ordered By:Nicola Glez; Neurology - General Referral Evaluation and Treatment Evaluate AND Treat near syncope, possible seizure activity Status: Hold For - Scheduling Requested for: 12Dec2021 Ordered;For: Near syncope; Ordered By: Nicola Glez Performed: Due: 12Mar2022 Near syncope, PVC's (premature ventricular contractions) Holter Monitor 3-14 Days; Status:Hold For - Scheduling,Retrospecti ve Authorization; Requested for:13Dec2021; Perform:[facility]; Due:13Mar2022; Last Updated By:Rach Ennis; 12/13/2021 8:33:06 AM;Ordered; For:Near syncope, PVC's (premature ventricular contractions); Ordered By:Nicola Glez; Holter Monitor 3-14 Days; Status:Complete; Done: 12Dec2021 Perform:[facility]; Due:12Mar2022; Last Updated By:Etta Hernandez; 12/12/2021 3:20:34 PM;Ordered; For:Near syncope, PVC's (premature ventricular contractions); Ordered By:Nicola Glez; Cardiology - General Referral Evaluation and Treatment Evaluate AND Treat Status: Complete Done: 12Dec2021 Ordered;For: Near syncope, PVC's (premature ventricular contractions); Ordered By: Nicola Glez Performed: Due: 12Mar2022; Last Updated By: Etta Hernandez; 12/12/2021 3:20:34 PM SocHx: Non-smoker Tobacco Use Screening; Status:Complete; Done: 12Dec2021 Perform:Not Applicable;Ordered; For:SocHx: Non-smoker; Ordered By:Rach Ennis; Provider Impressions 36 y.o. female who is here today to establish care with a cc of blackouts, weight gain and hair loss: 1. Blackouts, near syncopal episodes, possibly syncopal episodes, not really clear if she actually has syncope or she just reports lapses in memory at times - differential includes cardiac or nervous system pathology, does have a history of PVCs, consider also seizures, pseudoseizures, conversion disorder or other psych causes - will order holter monitor - will check cbc, cmp, tsh, b12, vit d, does have heavy periods so will check iron studies - referral to cardiology for eval - referral to neurology for eval 2. Hair loss - has been under a lot of stress with current custody arthur, had covid in May 12, also possible that she is pulling her hair out herself as coping mechanism to stress,though she denies this - checking tsh 3. Per patient she tells me that she was diagnosed with [place] by [facility], I have no records to review and she is not sure what circumstances led them to make that diagnosis, she is currently seeing psych services through [place] and says they have diagnosed her with depression, anxiety and PTSD though she is not currently on any medications, most recently on Lexapro but says she had side effects so she stopped it. Per document sent from color artist pt is being evaluated by psych as part of her court proceedings to retain custody of the baby back but at this time they are just looking for medical work up to be completed regarding her self reported blackouts. 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 male patient who is here today to establish care. Pt is here today to have workup for medical issues that she has been having. (more content not included)... Normal [employer] Amita 03-28-2021 JAIME Telephone (CDLBME) ANAHI DWYER ([id number]) 1985 F Date Time Provider Department 03/28/21 AUNDREA BIRD During your visit today, we recorded the following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 Codes 96787 (CT Abdomen/Pelvis w/ IV Contrast (IV Onl), Q9967 (CT ISOVUE 370MG/[id number] andMLand1) Reason For Exam abdominal pain Report CT ABDOMEN AND PELVIS WITH CONTRAST CLINICAL INDICATION: Abdominal pain, placenta previa, [address] images of the abdomen and pelvis were acquired after the administration of intravenous contrast. 75 ml of Isovue 370 contrast was given intravenously. Oral contrast was also given for this examination. COMPARISON: None FINDINGS: The gallbladder has been removed. The liver, spleen, pancreas, adrenal glands and kidneys appear within normal limits. The abdominal aorta is normal in caliber. There is no retroperitoneal, pelvic, or inguinal lymphadenopathy. The urinary bladder appears grossly normal. There is a gravid uterus with a single intrauterine gestation. The placenta is posterior. The large and small bowel appears within normal limits without evidence of wall thickening or dilatation. The appendix is not definitely identified, however there are no inflammatory changes within the right lower quadrant of the abdomen to suggest acute appendicitis. There is no free fluid within the abdomen or pelvis. There is no free air under the diaphragm. The visualized portion of the lung bases appear clear. No lytic or blastic lesions are seen on the bone windows. IMPRESSION: No acute findings are seen on this examination to explain the patient's pain. Gravid uterus noted with a single intrauterine gestation. The placenta is posterior and appears to cover the cervical os, consistent with the history of placenta previa. Report Dictated on Final Dictated: 02/26/2020 8:51 am Dictating Physician: MD SANCHEZ JONATHAN R Signed Date and Time: 02/26/2020 8:59 am Signed by: MD SANCHEZ JONATHAN R Transcribed Date and Time: 02/26/2020 8:51 Normal [facility] Chlamydia and GC PCR Panelon 02-26-2020 Chlamydia and GC PCR Panel Chlamydia trachomatis PCR --> Status: F NOT Detected Chlamydia trachomatis Nucleic Acid NOT Detected by DNA Amplification using the [employer] System. Culture is the only recommended test in medical-legal cases such as suspected child abuse or molestation. Chlamydia trachomatis Nucleic Acid NOT Detected by DNA Amplification using the [employer] System. Culture is the only recommended test in medical-legal cases such as suspected child abuse or molestation. Neisseria gonorrhoeae PCR --> Status: F NOT Detected Neisseria gonorrhoeae Nucleic Acid NOT Detected by DNA Amplification using the [employer] System. Culture is the only recommended test in medical-legal cases such as suspected child abuse or molestation. Neisseria gonorrhoeae Nucleic Acid NOT Detected by DNA Amplification using the [employer] System. Culture is the only recommended test in medical-legal cases such as suspected child abuse or molestation. Normal [facility] Comment on above: Order Comment: Speci men Source Comment Performed By: #### C UA2 #### [address] [address] GROUP B STREP,PCRon 02-26-20 20 Group B Strep Screen PCR NEGATIVE Expected Result: Negative CDC guidelines for prevention of Group B Strep disease recommends collection of both vaginal and rectal specimens for optimal recovery of GBS. Methodology - Real Time PCR ([employer]) [place], [place] Test Performed by [facility], [address] [place] [address] Specimen Source Comment:Vaginal-Perire ctal [place], [place] Group B Strep Screen PCRon 1 04-27-2019 Group B Strep Screen PCR Group B Strep Screen PCR --> Status: F NEGATIVE Expected Result: Negative CDC guidelines for prevention of Group B Strep disease recommends collection of both vaginal and rectal specimens for optimal recovery of GBS. Methodology - Real Time PCR ([employer]) Expected Result: Negative CDC guidelines for prevention of Group B Strep disease recommends collection of both vaginal and rectal specimens for optimal recovery of GBS. Methodology - Real Time PCR ([employer]) Normal [facility] Comment on above: Order Comment: Speci men Source Comment:Vaginal-Perirectal Performed By: #### C UA2 #### [address] [address] [place] [address] RETROPERITONEAL LIMITEDon 02-26-2020 Patient Name: ANAHI DWYER ---Ultrasound--- Exam Date/Time 02/26/2020 03:18:04 EST Exam US Retroperitoneal Limited Ordering Physician CODIE ROBLES Accession Number [id number] CPT4 Codes 10728 () Reason For Exam BL flank pain Report RENAL ULTRASOUND CLINICAL INDICATION: Bilateral flank pain Sonographic images of the bilateral kidneys and bladder were obtained. COMPARISON: None. FINDINGS: The right kidney measures 11.5 cm in longitudinal dimension. Parenchymal echotexture is normal. No focal lesions are seen. Slight prominence of the renal pelvis and calyces are noted, without definite dimitri hydronephrosis. There is no renal calculus. The left kidney measures 11.6 cm in longitudinal dimension. Parenchymal echotexture is normal. No focal lesions are seen. There is no evidence of hydronephrosis or renal calculus. No mass or fluid collection is seen adjacent to the kidneys. The bladder is grossly unremarkable. IMPRESSION: Mild prominence of the right renal pelvis and renal calyces, without definite dimitri hydronephrosis. Otherwise unremarkable renal ultrasound. Report Dictated on --- Final --- Dictated: 02/26/2020 7:04 am Dictating Physician: MD SANCHEZ JONATHAN R Signed Date and Time: 02/26/2020 7:06 am Signed by: MD SANCHEZ JONATHAN R Transcribed Date and Time: 02/26/2020 7:04 [place], [place] Mehrdad, [facility] Incoming Radiology Results From [facility] - 02/26/2020 7:07 AM EST Patient Name: ANAHI DWYER ---Ultrasound--- Exam Date/Time 02/26/2020 03:18:04 EST Exam US Retroperitoneal Limited Ordering Physician CODIE ROBLES Accession Number [id number] CPT4 Codes 05257 () Reason For Exam BL flank pain Report RENAL ULTRASOUND CLINICAL INDICATION: Bilateral flank pain Sonographic images of the bilateral kidneys and bladder were obtained. COMPARISON: None. FINDINGS: The right kidney measures 11.5 cm in longitudinal dimension. Parenchymal echotexture is normal. No focal lesions are seen. Slight prominence of the renal pelvis and calyces are noted, without definite dimitri hydronephrosis. There is no renal calculus. The left kidney measures 11.6 cm in longitudinal dimension. Parenchymal echotexture is normal. No focal lesions are seen. There is no evidence of hydronephrosis or renal calculus. No mass or fluid collection is seen adjacent to the kidneys. The bladder is grossly unremarkable. IMPRESSION: Mild prominence of the right renal pelvis and renal calyces, without definite dimitri hydronephrosis. Otherwise unremarkable renal ultrasound. Report Dictated on --- Final --- Dictated: 02/26/2020 7:04 am Dictating Physician: MD SANCHEZ JONATHAN R Signed Date and Time: 02/26/2020 7:06 am Signed by: MD SANCHEZ JONATHAN R Transcribed Date and Time: 02/26/2020 7:04 [place], [place] US Retroperitoneal Limitedon 02-26-2020 US Retroperitoneal Limited Patient Name: ANAHI DWYER Ultrasound Exam Date/Time 02/26/2020 03:18:04 EST Exam US Retroperitoneal Limited Ordering Physician [id number] SHARIF Accession Number [id number] CPT4 Codes 89321 () Reason For Exam BL flank pain Report RENAL ULTRASOUND CLINICAL INDICATION: Bilateral flank pain Sonographic images of the bilateral kidneys and bladder were obtained. COMPARISON: None. FINDINGS: The right kidney measures 11.5 cm in longitudinal dimension. Parenchymal echotexture is normal. No focal lesions are seen. Slight prominence of the renal pelvis and calyces are noted, without definite dimitri hydronephrosis. There is no renal calculus. The left kidney measures 11.6 cm in longitudinal dimension. Parenchymal echotexture is normal. No focal lesions are seen. There is no evidence of hydronephrosis or renal calculus. No mass or fluid collection is seen adjacent to the kidneys. The bladder is grossly unremarkable. IMPRESSION: Mild prominence of the right renal pelvis and renal calyces, without definite dimitri hydronephrosis. Otherwise unremarkable renal ultrasound. Report Dictated on Final Dictated: 02/26/2020 7:04 am Dictating Physician: MD SANCHEZ JONATHAN R Signed Date and Time: 02/26/2020 7:06 am Signed by: MD SANCHEZ JONATHAN R Transcribed Date and Time: 02/26/2020 7:04 Normal [facility] CBCon 02-25-2020 Erythrocyte distribution width (RBC) [Ratio] 13.5 % 11.5 - 14.5 % [place], [place] Hematocrit (Bld) [Volume fraction] 37.9 % 35 - 47 % [place] Hemoglobin (Bld) [Mass/Vol] 12.5 g/dL 11.7 - 16 g/dL [place] Interpretation and review of laboratory results Abnormal [place] MCH (RBC) [Entitic mass] 28.7 pg 26 - 34 pg [place] MCHC (RBC) [Mass/Vol] 32.9 % 32 - 36 % [place] MCV (RBC) [Entitic vol] 87.3 fL 79 - 98 fL [place] Platelet mean volume (Bld) [Entitic vol] 7.6 fL 7.4 - 10.4 fL [place] Platelets (Bld) [#/Vol] 270 10*3/uL 140 - 440 10*3/uL [place] RBC (Bld) [#/Vol] 4.35 10*6/uL 3.8 - 5.2 10*6/uL [place] WBC (Bld) [#/Vol] 13.9 10*3/uL High 3.6 - 10.7 10*3/uL [place] Test Performed by [facility], [address] [id number] [place], [place] Comp Metabolic Panelon 02-24 ALT [Catalytic activity/Vol] 19 U/L Normal 0-34 [facility] Comment on above: Result Comment: The ALT test is performed by an updated assay method. Please note that the reference intervals have been changed and are now sex specific. Performed By: #### H EMOG, FIBGN, PT/AP, CMP3 #### [address] [id number] Calcium [Mass/Vol] 8.0 mg/dL Low 8.4-10.4 [facility] Comment on above: Performed By: #### H EMOG, FIBGN, PT/AP, CMP3 #### [place] [address] [address] [place], [place] Glucose [Mass/Vol] 136 mg/dL High 70-100 [facility] Comment on above: Performed By: #### H EMOG, FIBGN, PT/AP, CMP3 #### [place] [address] [address] [place], [place] ALP [Catalytic activity/Vol] 137 U/L High 38-126 [facility] Comment on above: Performed By: #### H EMOG, FIBGN, PT/AP, CMP3 #### [place] [address] [address] [place], [place] Anion gap [Moles/Vol] 12 Normal [facility] Comment on above: Performed By: #### H EMOG, FIBGN, PT/AP, CMP3 #### [place] [address] [address] [place], [place] AST [Catalytic activity/Vol] 33 U/L Normal 15-46 [facility] Comment on above: Performed By: #### H EMOG, FIBGN, PT/AP, CMP3 #### [place] [address] [address] [place], [place] Bilirubin [Mass/Vol] 0.3 mg/dL Normal 0.2-1.3 [facility] Comment on above: Performed By: #### H EMOG, FIBGN, PT/AP, CMP3 #### [place] [address] [place], [place] CO2 [Moles/Vol] 14 mmol/L Low 22-30 [facility] Comment on above: Performed By: #### H EMOG, FIBGN, PT/AP, CMP3 #### [place] [address] [place], [place] Creatinine [Mass/Vol] 0.43 mg/dL Low 0.52-1.25 [facility] Comment on above: Performed By: #### H EMOG, FIBGN, PT/AP, CMP3 #### [address] GFR/1.73 sq M predicted among blacks MDRD (S/P/Bld) [Vol rate/Area] mL/min/{1.73_m2} Normal >60 [facility] Comment on above: Performed By: #### H EMOG, FIBGN, PT/AP, CMP3 #### [address] GFR/1.73 sq M predicted among non-blacks MDRD (S/P/Bld) [Vol rate/Area] mL/min/{1.73_m2} Normal >60 [facility] Comment on above: Result Comment: KDIG O guidelines provide the following GFR categories: Stage GFR(ml/min/1.73 m2) Terms G1 >=90 Normal or high G2 60-89 Mildly decreased* G3a 45-59 Mildly to moderately decreased G3b 30-44 Moderately to severely decreased G4 15-29 Severely decreased G5 <15 Kidney failure *Relative to young adult level. In the absence of evidence of kidney damage, neither GFR category G1 nor G2 fulfill the criteria for CKD. The CKD-EPI equation is validated in individuals 18 years of age and older. Currently the best equation for estimating glomerular filtration rate (GFR) from serum creatinine in children is the Bedside Rendon equation. It is less accurate in patients with extremes of muscle mass, restriction of dietary protein, ingestion of creatine, extra-renal metabolism of creatinine, or treatment with medications that affect renal tubular creatinine secretion. Performed By: #### H EMOG, FIBGN, PT/AP, CMP3 #### [address] Protein [Mass/Vol] 7.4 g/dL Normal 6.3-8.2 [facility] Comment on above: Performed By: #### H EMOG, FIBGN, PT/AP, CMP3 #### [address] Urea nitrogen [Mass/Vol] 7 mg/dL Normal 7-20 [facility] Comment on above: Performed By: #### H EMOG, FIBGN, PT/AP, CMP3 #### [address] [place], [place] Potassium [Moles/Vol] 3.8 mmol/L Normal 3.5-5.1 [facility] Comment on above: Performed By: #### H EMOG, FIBGN, PT/AP, CMP3 #### [facility] [address], [place] Sodium [Moles/Vol] 134 mmol/L Low 135-145 [facility] Comment on above: Performed By: #### H EMOG, FIBGN, PT/AP, CMP3 #### [place] [address] [address] [place], [place] Albumin [Mass/Vol] 4.0 g/dL Normal 3.5-5.0 [facility] Comment on above: Performed By: #### H EMOG, FIBGN, PT/AP, CMP3 #### [place] [address] [address] [place], [place] Chloride [Moles/Vol] 107 mmol/L Normal 98-107 [facility] Comment on above: Performed By: #### H EMOG, FIBGN, PT/AP, CMP3 #### [place] [address] [address] [place], [place] Complete Urinalysison 2019 Appearance (U) Clear Normal Clear [facility] Comment on above: Result Comment: . Performed By: #### C UA2 #### [place] [address] [address] [place], [place] Bilirubin,Urine Negative Normal Negative [facility] Comment on above: Result Comment: . Performed By: #### C UA2 #### [place] [address] [address] [place], [place] Color (U) Colorless Normal Lt. Yellow [facility] Comment on above: Result Comment: . Performed By: #### C UA2 #### [place] [address] [address] [place], [place] Glucose Ql (U) Normal Normal Normal (<70) [facility] Comment on above: Result Comment: . Performed By: #### C UA2 #### [place] [address] [address] [place], [place] Ketone,Urine 100 mg/dL Abnormal Negative [facility] Comment on above: Result Comment: . Performed By: #### C UA2 #### [facility] [address], [place] Leukocytes,Urine Negative Normal Negative [facility] Comment on above: Result Comment: . Performed By: #### C UA2 #### [facility] [address], [place] Nitrites,Urine Negative Normal Negative [facility] Comment on above: Result Comment: . Performed By: #### C UA2 #### [place] [address] [address] [place], [place] Occult Blood,Urine Negative Normal Negative [facility] Comment on above: Result Comment: . Performed By: #### C UA2 #### [place] [address] [address] [place], [place] pH (U) 5.0 Normal 5.0-8.0 [facility] Comment on above: Result Comment: . Performed By: #### C UA2 #### [place] [address] [address] [place], [place] Protein (U) [Mass/Vol] Negative Normal Negative [facility] Comment on above: Result Comment: . Performed By: #### C UA2 #### [place] [address] [address] [place], [place] Specific [place],Urine 1.013 Normal 1.005 - 1.030 [facility] Comment on above: Result Comment: . Performed By: #### C UA2 #### [place] [address] [place], [place] Urobilinogen,Urine Normal Normal Normal (0-1) [facility] Comment on above: Result Comment: . Performed By: #### C UA2 #### [place] [address] [address] [place], [place] Comprehensive Metabolic Pane lyndsey 02-25-2020 Albumin [Mass/Vol] 4.0 g/dL 3.5 - 5 g/dL [facility], [place] ALP [Catalytic activity/Vol] 137 U/L High 38 - 126 U/L [place], [place] ALT [Catalytic activity/Vol] 19 U/L 0 - 34 U/L [place] Comment on above: The ALT test is perf ormed by an updated assay method. Please note that the reference intervals have been changed and are now sex specific. Anion gap [Moles/Vol] 12 mmol/L [place] AST [Catalytic activity/Vol] 33 U/L 15 - 46 U/L [place] Bilirubin Ql (U) 0.3 mg/dL 0.2 - 1.3 mg/dL [place] Calcium [Mass/Vol] 8.0 mg/dL Low 8.4 - 10. 4 mg/dL [place] Chloride [Moles/Vol] 107 mmol/L 98 - 10 7 mmol/L [place] CO2 [Moles/Vol] 14 mmol/L Low 22 - 30 mmol/L [place] Creatinine [Mass/Vol] 0.43 mg/dL Low 0.52 - 1.25 mg/dL [place] EGFR IF NonAfrican [place]cuadorean >90.0 >60 mL/min [place] Comment on above: KDIGO guidelines pro vide the following GFR categories: Stage GFR(ml/min/1.73 m2) Terms G1 >=90 Normal or high G2 60-89 Mildly decreased* G3a 45-59 Mildly to moderately decreased G3b 30-44 Moderately to severely decreased G4 15-29 Severely decreased G5 <15 Kidney failure *Relative to young adult level. In the absence of evidence of kidney damage, neither GFR category G1 nor G2 fulfill the criteria for CKD. The CKD-EPI equation is validated in individuals 18 years of age and older. Currently the best equation for estimating glomerular filtration rate (GFR) from serum creatinine in children is the Bedside Rendon equation. It is less accurate in patients with extremes of muscle mass, restriction of dietary protein, ingestion of creatine, extra-renal metabolism of creatinine, or treatment with medications that affect renal tubular creatinine secretion. GFR/1.73 sq M predicted among blacks MDRD (S/P/Bld) [Vol rate/Area] mL/min/{1.73_m2} >60 mL/min [place] Glucose [Mass/Vol] 136 mg/dL High 70 - 100 mg/dL [place] Interpretation and review of laboratory results Abnormal [place] Potassium [Moles/Vol] 3.8 mmol/L 3.5 - 5.1 mmol/L [place] Protein [Mass/Vol] 7.4 g/dL 6.3 - 8.2 g/dL [place] Sodium [Moles/Vol] 134 mmol/L Low 135 - 145 mmol/L [place] Urea nitrogen [Mass/Vol] 7 mg/dL 7 - 20 mg/dL [place] Test Performed by [id number] [place] [address] Fibrinogenon 02-25-2020 Fibrinogen 550 mg/dL High 200-400 [facility] Comment on above: Performed By: #### H EMOG, FIBGN, PT/AP, CMP3 #### [address] Fibrinogen 550 mg/dL High 200 - 400 mg/dL [place] Interpretation and review of laboratory results Abnormal [place] Hemogramon 02-25-2020 Erythrocyte distribution width (RBC) [Ratio] 13.5 % Normal 11.5-14.5 [facility] Comment on above: Performed By: #### H EMOG, FIBGN, PT/AP, CMP3 #### [address] Hematocrit (Bld) [Volume fraction] 37.9 % Normal 35.0-47.0 [facility] Comment on above: Performed By: #### H EMOG, FIBGN, PT/AP, CMP3 #### [address] Hemoglobin (Bld) [Mass/Vol] 12.5 g/dL Normal 11.7-16.0 [facility] Comment on above: Performed By: #### H EMOG, FIBGN, PT/AP, CMP3 #### [address] MCH (RBC) [Entitic mass] 28.7 pg Normal 26.0-34.0 [facility] Comment on above: Performed By: #### H EMOG, FIBGN, PT/AP, CMP3 #### [address] [place] [address] [place], [place] MCHC (RBC) [Mass/Vol] 32.9 % Normal 32.0-36.0 [facility] Comment on above: Performed By: #### H EMOG, FIBGN, PT/AP, CMP3 #### [address] MCV (RBC) [Entitic vol] 87.3 fL Normal 79.0-98.0 [facility] Comment on above: Performed By: #### H EMOG, FIBGN, PT/AP, CMP3 #### [address] Platelet mean volume (Bld) [Entitic vol] 7.6 fL Normal 7.4-10.4 [facility] Comment on above: Performed By: #### H EMOG, FIBGN, PT/AP, CMP3 #### [address] Platelets (Bld) [#/Vol] 270 10*3/uL Normal 140-440 [facility] Comment on above: Performed By: #### H EMOG, FIBGN, PT/AP, CMP3 #### [address] RBC (Bld) [#/Vol] 4.35 10*6/uL Normal 3.80-5.20 [facility] Comment on above: Performed By: #### H EMOG, FIBGN, PT/AP, CMP3 #### [address] WBC (Bld) [#/Vol] 13.9 10*3/uL High 3.6-10.7 [facility] Comment on above: Performed By: #### H EMOG, FIBGN, PT/AP, CMP3 #### [address] Medication Assisted Treatmen t Panelon 02-25-2020 Amphetamines Ql (U) Negative Normal [facility] Comment on above: Performed By: #### M AT #### [facility] [address], [place] Barbiturates Negative Normal [facility] Comment on above: Performed By: #### M AT #### [facility] [address], [place] Benzodiazepines Ql (U) Negative Normal [facility] Comment on above: Performed By: #### M AT #### [facility] [address], [place] Buprenorphine Screen Negative [facility] Comment on above: Performed By: #### M AT #### [facility] [address], [place] Cocaine Ql (U) Negative Normal [facility] Comment on above: Performed By: #### M AT #### [facility] [address], [place] Ethanol [Mass/Vol] Negative Normal [facility] Comment on above: Performed By: #### M AT #### [facility] [address], [place] Fentanyl Negative [facility] Comment on above: Performed By: #### M AT #### [facility] [address] [facility], [place] Methadone Ql (U) Negative Normal [facility] Comment on above: Performed By: #### M AT #### [facility] [address], [place] Opiates Ql (U) Negative Normal [facility] Comment on above: Performed By: #### M AT #### [facility] [address], [place] Oxycodone/Oxymorphone Negative Normal [facility] Comment on above: Performed By: #### M AT #### [facility] [address], [place] PCP Negative Normal [facility] Comment on above: Performed By: #### M AT #### [facility] [address] [place] [address] THC Negative Normal [facility] Comment on above: Performed By: #### M AT #### [facility] [address] [place] [place] [address] Amphetamines Ql (U) Negative [facility], [place] Benzodiazepines Ql (U) Negative [facility], [place] Cocaine Ql (U) Negative [facility], [place] Ethanol [Mass/Vol] Negative [facility], [place] Methadone Ql (U) Negative [facility] [place], [place] Opiates Ql (U) Negative [facility], [place] Sodium [Moles/Vol] See Below [place], [place] Comment on above: The expected value f or the drugs listed above is Negative. The following drugs or drug groups have been screened for by Immunoassay at the following thresholds: Amphetamine class(1000ng/mL), Barbituates(200ng/mL), Benzodiazepines(200ng/mL), Cocaine(300ng/mL), Ethanol (50 ng/mL), Methadone(300ng/mL), Opiates(300ng/mL), Oxycodone(100ng/mL), PCP(25ng/mL), Buprenorphine(5ng/mL), THC(50ng/mL), Fentanyl(2ng/mL). Positive results are NOT confirmed by a more specific alternative method unless requested. If confirmation is needed, request confirmation under separate order. NOTE: These results are for medical treatment only. Analysis performed using non-forensic procedures. Test Performed by [address] [address] [place], [place] MAT Panel Test Comment See Below [facility] Comment on above: Result Comment: The expected value for the drugs listed above is Negative. The following drugs or drug groups have been screened for by Immunoassay at the following thresholds: Amphetamine class(1000ng/mL), Barbituates(200ng/mL), Benzodiazepines(200ng/mL), Cocaine(300ng/mL), Ethanol (50 ng/mL), Methadone(300ng/mL), Opiates(300ng/mL), Oxycodone(100ng/mL), PCP(25ng/mL), Buprenorphine(5ng/mL), THC(50ng/mL), Fentanyl(2ng/mL). Positive results are NOT confirmed by a more specific alternative method unless requested. If confirmation is needed, request confirmation under separate order. NOTE: These results are for medical treatment only. Analysis performed using non-forensic procedures. Performed By: #### M AT #### [address] [place] [address] [place] [address] Metabolic Panelon 02-25-2020 Sodium [Moles/Vol] Negative [place], [place] Otheron 02-25-2020 Test Performed by [facility], [address] [id number] [place] [address] PROTIME/INR & PTTon 02-25-20 20 aPTT Coag (Bld) [Time] 25.1 s 20 - 30.5 s [place], [place] Comment on above: NOTE: The therapeuti c time for Heparin anticoagulation, based on Xa activity inhibition, is an APTT of 46-80 seconds. INR Coag (PPP) [Relative time] 0.9 {INR} [place], [place] Comment on above: Recommended Anticoag ulant Therapy: SEE BELOW ----- INR of 2.0 - 3.0 : - Prophylaxis of Venous Thrombosis (high-risk surgery) - Treatment of Venous Thrombosis - Treatment of Pulmonary Embolism (Includes tissue heart valves, Acute Myocardial Infarction to prevent systemic embolism, Valvular Heart Disease, and Atrial Fibrillation) ----- INR of 2.5 - 3.5 : - Mechanical Prosthetic Valves (high risk) - If oral anticoagulant therapy is used to prevent Myocardial Infarction PT Coag (PPP) [Time] 9.8 s 9 - 12 s [place], [place] Comment on above: . Protime AND APTTon 0 aPTT Coag (Bld) [Time] 25.1 s Normal 20.0-30.5 [facility] Comment on above: Result Comment: NOTE : The therapeutic time for Heparin anticoagulation, based on Xa activity inhibition, is an APTT of 46-80 seconds. Performed By: #### H EMOG, FIBGN, PT/AP, CMP3 #### [address] [place] [place] [address] INR Coag (PPP) [Relative time] 0.9 Normal 0.9-1.1 [facility] Comment on above: Result Comment: David mmended Anticoagulant Therapy: SEE BELOW ----- INR of 2.0 - 3.0 : - Prophylaxis of Venous Thrombosis (high-risk surgery) - Treatment of Venous Thrombosis - Treatment of Pulmonary Embolism (Includes tissue heart valves, Acute Myocardial Infarction to prevent systemic embolism, Valvular Heart Disease, and Atrial Fibrillation) ----- INR of 2.5 - 3.5 : - Mechanical Prosthetic Valves (high risk) - If oral anticoagulant therapy is used to prevent Myocardial Infarction Performed By: #### H EMOG, FIBGN, PT/AP, CMP3 #### [address] PT Coag (PPP) [Time] 9.8 s Normal 9.0-12.0 [facility] Comment on above: Result Comment: . Performed By: #### H EMOG, FIBGN, PT/AP, CMP3 #### [address] TS GELon 02-25-2020 TS GEL ABO Group: A Rh, Gel: POS Antibody Screen Gel: NEG Normal [facility] Comment on above: Performed By: #### C UA2 #### [address] TYPE AND SCREENon 02-25-2020 Sodium [Moles/Vol] A [place] Sodium [Moles/Vol] Negative [place] Sodium [Moles/Vol] Positive [place] Test Performed by [facility], [address] [place] [id number] [place] [address] Urinalysison 02-25-2020 Appearance (U) Clear Clear NA [place], [place] Comment on above: . Bilirubin Urine Negative Negative mg/dL [place], [place] Comment on above: . Color (U) Colorless Lt. Yellow NA [place], [place] Comment on above: . Glucose, Ur Normal Normal (<70) mg/dL [place], [place] Comment on above: . Interpretation and review of laboratory results Abnormal [place], [place] Ketones Ql (U) 100 mg/dL Abnormal Negative [place], [place] Comment on above: . LEUKOCYTES, UA Negative Negative Dannielle/uL [place], [place] Comment on above: . Nitrite, Urine Negative Negative NA [place], [place] Comment on above: . Occult Blood,Urine Negative Negative mg/dL [place], [place] Comment on above: . pH (U) 5.0 [pH] [place], [place] Comment on above: . Protein (U) [Mass/Vol] Negative Negat rehan mg/dL [place], [place] Comment on above: . Specific [place], Urine 1.013 [place], [place] Comment on above: . Urobilinogen, Urine Normal Normal ( 0-1) mg/dL [place], [place] Comment on above: . Test [facility], [address] [place] [id number] [place] ABO, External Resulton 11-21 ABO, External Result A [place], [place] HIV, External Resulton 11-21 HIV, External Result non-reactive [place], [place] Hepatitis B, External Result on 11-22-2019 Hep B, External Result non-reactive [place], [place] Hepatitis C Antibody, Cigarette Inspector al Resulton 11-22-2019 Hepatitis C Antibody, External Result non-reactive [place], [place] Otheron 11-22-2019 Verified by Antonia Pollard RN [place], [place] RPR, External Labon 11-22-19 20 RPR, External Result non-reactive [place], [place] Rh Factor, External Resulton 11-22-2019 Rh Factor, External Result Positive [place], [place] Rubella Titer, External Resu lton 11-22-2019 Rubella Titer, External Result immune [place], [place] Microbiology: Culture, Genit al Comprehensiveon 03-14-2017 CUV Gent Cult CompNormal genital hui isolated Invalid Interpretation Code [facility] Microbiology: (P) Culture, G enital Comprehensiveon 03-11-2017 CUV . Invalid Interpretation Code [facility] Work Phone: Lab Report: CT/NG [facility] BY PCR on 03-10-2017 Chlamydia trachomatis DNA [Presence] in Urine by Probe and target amplification method Negative Invalid Interpretation Code Negative [facility] Neisseria gonorrhoeae presence Negative Invalid Interpretation Code Negative [facility] Office Visit: lower back vicki n/bloatingon 03-10-2017 Documentation of current medications (procedure) Done Invalid Interpretation Code [facility] Fall risk assessment No Invalid Interpretation Code [facility] Tobacco smoking status NHIS Never Invalid Interpretation Code [facility] Tobacco use CPHS Never smoker Invalid Interpretation Code [facility] Microbiology: Culture, Urine on 03-05-2017 CUUR . Invalid Interpretation Code [facility] Append: Preloadon 03-03-2017 Bilirubin Ql (U) Negative Invalid Interpretation Code [facility] blood in urine (hemoglobin) by dipstick 1+ Invalid Interpretation Code [facility] specific gravity, urine 1.030 Invalid Interpretation Code [facility] Urine, appearance cloudy Invalid Interpretation Code [facility] Urine, color brown Invalid Interpretation Code [facility] Urine, glucose presence Negative Invalid Interpretation Code [facility] Urine, ketones presence large (80) Invalid Interpretation Code [facility] Urine, leukocyte esterase presence Negative Invalid Interpretation Code [facility] Urine, nitrite presence Negative Invalid Interpretation Code [facility] Urine, pH 5.0 [pH] Invalid Interpretation Code [facility] Urine, protein trace Invalid Interpretation Code [facility] Urine, urobilinogen presence Negative Invalid Interpretation Code [facility] Lab Report: CBC W/Diff, Auto matedon 03-03-2017 Absolute Neut 7.8 X10 3/UL High 2.0-7.7 [facility] Basophils/100 WBC Auto (Bld) 1.2 % High 0-1 [facility] Eosinophils/100 leukocytes 4.8 % Invalid Interpretation Code 0-5 [facility] Erythrocyte distribution width Auto Ratio (RBC) 13.1 % Invalid Interpretation Code 11.6-14.6 [facility] Erythrocytes (RBC) 5.05 10*6/uL Invalid Interpretation Code 4.2-5.4 [facility] Hematocrit (HCT) 42.8 % Invalid Interpretation Code 37-47 [facility] Hemoglobin mass conc (Bld) 14.6 g/dL Invalid Interpretation Code 12.0-15.0 [facility] Immature granulocytes/100 WBC (Bld) 0.200 % Invalid Interpretation Code 0.0-0.9 [facility] Lymphocytes 2.78 X10 3/UL Invalid Interpretation Code 0.83-4.51 [facility] Lymphocytes/100 leukocytes 23.0 % Invalid Interpretation Code 19-41 [facility] MCH 28.9 pg Invalid Interpretation Code 27.0-32.0 [facility] MCHC mass conc (RBC) 34.1 G/GL Invalid Interpretation Code 32-36 [facility] MCV 84.8 fL Invalid Interpretation Code 81-99 [facility] Monocytes/100 leukocytes 6.4 % Invalid Interpretation Code 0-10 [facility] Neutrophils/100 WBC Auto (Bld) 64.4 % Invalid Interpretation Code 47-70 [facility] Platelets 265 10*3/mm3 Invalid Interpretation Code 150-450 [facility] PMV by Perri 9.6 fL Invalid Interpretation Code 6.2-12.0 [facility] RDW SD 40.0 fL Invalid Interpretation Code 35.1-43.9 [facility] WBC (Leukocytes) 12.1 10*3/uL High 4.4-11.0 [facility] Lab Report: Thyroid Stim Hor dariel (TSH)on 03-03-2017 Thyroid stimulating hormone (TSH) 1.64 u[iU]/mL Invalid Interpretation Code 0.358-3.74 [facility] Office Visit: ovarian pain, fatigueon 03-03-2017 Documentation of current medications (procedure) Done Invalid Interpretation Code [facility] Fall risk assessment No Invalid Interpretation Code [facility] Tobacco smoking status NHIS Never Invalid Interpretation Code [facility] Tobacco use CPHS Never smoker Invalid Interpretation Code [facility] Lab Report: PAP I-G HPV Hi R iskon 02-19-2017 HPV HC,HGH RISK . Invalid Interpretation Code [facility] Office Visit: bloatingon Documentation of current medications (procedure) Done Invalid Interpretation Code [facility] Fall risk assessment No Invalid Interpretation Code [facility] Protein mass conc Done Invalid Interpretation Code [facility] Tobacco smoking status NHIS Never Invalid Interpretation Code [facility] Tobacco smoking status FLIS Never smoker Invalid Interpretation Code [facility] Tobacco use [facility] Never smoker Invalid Interpretation Code [facility] Lab Report: CBC W/Diff, Auto matedon 08-10-2016 Absolute Neut 4.5 X10 3/UL Invalid Interpretation Code 2.0-7.7 [facility] Basophils/100 WBC Auto (Bld) 0.4 % Invalid Interpretation Code 0-1 [facility] Eosinophils/100 WBC Auto (Bld) 3.7 % Invalid Interpretation Code 0-5 [facility] Erythrocyte distribution width Auto Ratio (RBC) 15.3 % High 11.6-14.6 [facility] Erythrocyte distribution width Auto Ratio (RBC) 47.0 fL High 35.1-43.9 [facility] Hematocrit Auto Volume Fraction (Bld) 39.4 % Invalid Interpretation Code 37-47 [facility] Hemoglobin mass conc (Bld) 12.8 g/dL Invalid Interpretation Code 12.0-15.0 [facility] Immature granulocytes #/vol (Bld) 0.100 % Invalid Interpretation Code 0.0-0.9 [facility] Immature granulocytes/100 WBC (Bld) 0.100 % Invalid Interpretation Code 0.0-0.9 [facility] Lymphocytes Auto #/vol (Bld) 1.66 X10 3/UL Invalid Interpretation Code 0.83-4.51 [facility] Lymphocytes/100 WBC Auto (Bld) 23.0 % Invalid Interpretation Code 19-41 [facility] MCH Auto Entitic mass (RBC) 27.5 pg Invalid Interpretation Code 27.0-32.0 [facility] MCHC Auto mass conc (RBC) 32.5 G/GL Invalid Interpretation Code 32-36 [facility] MCV Auto Entitic volume (RBC) 84.5 fL Invalid Interpretation Code 81-99 [facility] Monocytes/100 WBC Auto (Bld) 10.2 % High 0-10 [facility] Neutrophils Auto #/vol (Bld) 4.5 X10 3/UL Invalid Interpretation Code 2.0-7.7 [facility] Neutrophils/100 WBC Auto (Bld) 62.6 % Invalid Interpretation Code 47-70 [facility] Platelet mean volume Payam-Pat Entitic volume (Bld) 8.8 fL Invalid Interpretation Code 6.2-12.0 [facility] Platelets Auto #/vol (Bld) 253 10*3/mm3 Invalid Interpretation Code 150-450 [facility] RBC Auto #/vol (Bld) 4.66 10*6/uL Invalid Interpretation Code 4.2-5.4 [facility] RDW SD 47.0 fL High 35.1-43.9 [facility] WBC Auto #/vol (Bld) 7.2 10*3/uL Invalid Interpretation Code 4.4-11.0 [facility] Lab Report: Comprehensive Ia tabolic Profilon 08-10-2016 Albumin mass conc 3.1 g/dL Low 3.4-5.0 [facility] Albumin/Globulin mass ratio 0.9 {ratio} Invalid Interpretation Code 0.9-2.4 [facility] Alkaline phosphatase (ALP) 335 U/L High 45-117 [facility] ALP enzyme act/vol (Bld) 335 U/L High 45-117 [facility] ALT enzyme act/vol 736 U/L High 12-78 [facility] Anion gap 6 mmol/L Invalid Interpretation Code 5-15 [facility] Anion gap 4 molar conc 6 Invalid Interpretation Code 5-15 [facility] AST enzyme act/vol 315 U/L High 15-37 [facility] Bilirubin mass conc 4.70 mg/dL High 0.20-1.00 [facility] Calcium mass conc 8.9 mg/dL Invalid Interpretation Code 8.5-10.1 [facility] Chloride molar conc 103 mmol/L Invalid Interpretation Code 98-107 [facility] CO2 29.0 mmol/L Invalid Interpretation Code 21.0-32.0 [facility] CO2 ppres (BldV) 29.0 mmol/L Invalid Interpretation Code 21.0-32.0 [facility] Creatinine 81.68 mL/min Invalid Interpretation Code [facility] Creatinine mass conc 0.76 mg/dL Invalid Interpretation Code 0.55-1.02 [facility] eGFR (non-black) 114 mL/min/{1.73_m2} Invalid Interpretation Code >60 [facility] EST GFR - AA 114 mL/min Invalid Interpretation Code >60 [facility] GFR/1.73 sq M predicted among non-blacks MDRD vol rate/area (S/P/Bld) 94 mL/min/{1.73_m2} Invalid Interpretation Code >60 [facility] Globulin Calculated mass conc (S) 3.5 g/dL Invalid Interpretation Code 2.3-3.5 [facility] Glucose mass conc 107 mg/dL Invalid Interpretation Code 70-110 [facility] Potassium molar conc 3.5 mmol/L Invalid Interpretation Code 3.5-5.1 [facility] Protein mass conc 6.6 g/dL Invalid Interpretation Code 6.4-8.2 [facility] Sodium molar conc 138 mmol/L Invalid Interpretation Code 136-145 [facility] Urea nitrogen mass conc 4 mg/dL Low 7-18 [facility] Urea nitrogen/Creatinine mass ratio 5.2 RATIO Low 10-20 [facility] Lab Report: Lipaseon 017 LIPASE 279 U/L Invalid Interpretation Code 04-537 [facility] Office Visit: bloatingon General categories Cyto stain Interp (Cervical or vaginal smear or scraping) Normal Invalid Interpretation Code [facility] Vital Signs Date Time Vital Sign Value Performing Clinician Facility 11-24-2024 03:29-0400 Diastolic blood pressure 60 mm[Hg] Antonio Tan MD Work Phone: [facility] 11-24-2024 03:29-0400 Heart rate 54 /min Antonio Tan MD Work Phone: [facility] 11-24-2024 03:29-0400 SaO2% (BldA) [Mass fraction] 97 % Antonio Tan MD Work Phone: [facility] 11-24-2024 03:29-0400 Systolic blood pressure 99 mm[Hg] Antonio Tan MD Work Phone: [facility] 11-24-2024 02:53-0400 Respiratory rate 16 /min Antonio Tan MD Work Phone: [facility] 11-24-2024 01:56-0400 Body height 154.9 cm Antonio Tan MD Work Phone: [facility] 11-24-2024 01:56-0400 Body mass index (BMI) [Ratio] 33.25 kg/m2 Antonio Tan MD Work Phone: [facility] 11-24-2024 01:56-0400 Body temperature 97.81 [degF] Antonio Tan MD Work Phone: [facility] 11-24-2024 01:56-0400 Body weight 79.83 kg Antonio Tan MD Work Phone: [facility] 08-25-2024 01:03-0400 Diastolic blood pressure 61 mm[Hg] Luan Joyner DO Work Phone: [facility] 08-25-2024 01:03-0400 Heart rate 68 /min Luan Joyner DO Work Phone: [facility] 08-25-2024 01:03-0400 Respiratory rate 16 /min Luan Joyner DO Work Phone: [facility] 08-25-2024 01:03-0400 SaO2% (BldA) [Mass fraction] 96 % Luan Joyner DO Work Phone: [facility] 08-25-2024 01:03-0400 Systolic blood pressure 104 mm[Hg] Luan Joyner DO Work Phone: [facility] 08-24-2024 23:02-0400 Body height 157.5 cm Luan Joyner DO Work Phone: [facility] 08-24-2024 23:02-0400 Body mass index (BMI) [Ratio] 34.39 kg/m2 Luan Joyner DO Work Phone: [facility] 08-24-2024 23:02-0400 Body temperature 97.59 [degF] Luan Joyner DO Work Phone: [facility] 08-24-2024 23:02-0400 Body weight 85.28 kg Luan Joyner DO Work Phone: [facility] 07-22-2024 09:12-0400 Body height 154.[address] Nicola Glez DO Work Phone: [facility] 07-22-2024 09:12-0400 Body mass index (BMI) [Ratio] 35.5 kg/m2 Dr. Nicola Glez DO Work Phone: [facility] 07-22-2024 09:12-0400 Body weight 85.[address] Nicola Gelz DO Work Phone: [facility] 07-22-2024 09:12-0400 Diastolic blood pressure 79 mm[Hg] Dr. Nicola Glez DO Work Phone: [facility] 07-22-2024 09:12-0400 Systolic blood pressure 114 mm[Hg] Dr. Nicola Glez DO Work Phone: [facility] 07-20-2024 10:12-0400 Body height 154.9 cm Carri Carrasco PA-C Work Phone: [facility] 07-20-2024 10:12-0400 Body mass index (BMI) [Ratio] 35.67 kg/m2 Carri SALDIVAR-C Work Phone: [facility] 07-20-2024 10:12-0400 Body weight 85.64 kg Carri SALDIVAR-C Work Phone: [facility] 07-20-2024 10:12-0400 Diastolic blood pressure 64 mm[Hg] Carri SALDIVAR-C Work Phone: [facility] 07-20-2024 10:12-0400 Heart rate 68 /min Carri Carrasco PA-C Work Phone: [facility] 07-20-2024 10:12-0400 Systolic blood pressure 110 mm[Hg] Carri Carrasco PA-C Work Phone: [facility] 07-19-2024 14:25-0400 Body temperature 98.1 [degF] Dr. Nicola Glez DO Work Phone: [facility] 07-19-2024 14:25-0400 Diastolic blood pressure 71 mm[Hg] Dr. Nicola Glez DO Work Phone: [facility] 07-19-2024 14:25-0400 Heart rate 71 /min Dr. Nicola Glez DO Work Phone: [facility] 07-19-2024 14:25-0400 Respiratory rate 16 /min Dr. Nicola Glez DO Work Phone: [facility] 07-19-2024 14:25-0400 SaO2% (BldA) [Mass fraction] 97 % Dr. Nicola Glez DO Work Phone: [facility] 07-19-2024 14:25-0400 Systolic blood pressure 125 mm[Hg] Dr. Nicola Glez DO Work Phone: [facility] 07-19-2024 10:19-0400 Body height 154.[address] Nicola Glez DO Work Phone: [facility] 07-19-2024 10:19-0400 Body mass index (BMI) [Ratio] 35.4 kg/m2 Dr. Nicola Glez DO Work Phone: [facility] 07-19-2024 10:19-0400 Body weight 85.[address] Nicola Glez DO Work Phone: [facility] 06-30-2024 10:36-0400 Body height 154.[address] Nicola Glez DO Work Phone: [facility] 06-30-2024 10:36-0400 Body mass index (BMI) [Ratio] 34.4 kg/m2 Dr. Nicola Glez DO Work Phone: [facility] 06-30-2024 10:36-0400 Body weight 82.[address] Nicola Glez DO Work Phone: [facility] 06-30-2024 10:36-0400 Diastolic blood pressure 87 mm[Hg] Dr. Nicola Glez DO Work Phone: [facility] 06-30-2024 10:36-0400 Systolic blood pressure 128 mm[Hg] Dr. Nicola Glez DO Work Phone: [facility] 06-28-2024 11:49-0400 Body mass index (BMI) [Ratio] 34.4 kg/m2 Dr. Nicola Glez DO Work Phone: [facility] 06-28-2024 11:49-0400 Body weight 82.[address] Nicola Glez DO Work Phone: [facility] 06-28-2024 11:49-0400 Diastolic blood pressure 71 mm[Hg] Dr. Nicola Glez DO Work Phone: [facility] 06-28-2024 11:49-0400 Heart rate 72 /min Dr. Nicola Glez DO Work Phone: [facility] 06-28-2024 11:49-0400 SaO2% (BldA) [Mass fraction] 97 % Dr. Nicola Glez DO Work Phone: [facility] 06-28-2024 11:49-0400 Systolic blood pressure 121 mm[Hg] Dr. Nicola Glez DO Work Phone: [facility] 06-19-2024 15:04-0500 Diastolic blood pressure 75 mm[Hg] Cesar Whatley DO Work Phone: [facility] 06-19-2024 15:04-0500 Heart rate 75 /min Cesar Whatley DO Work Phone: [facility] 06-19-2024 15:04-0500 Respiratory rate 16 /min Cesar Whatley DO Work Phone: [facility] 06-19-2024 15:04-0500 SaO2% (BldA) [Mass fraction] 97 % Cesar Whatley DO Work Phone: [facility] 06-19-2024 15:04-0500 Systolic blood pressure 95 mm[Hg] Cesar Whatley DO Work Phone: [facility] 06-19-2024 11:39-0500 Body height 154.9 cm Cesar Whatley DO Work Phone: [facility] 06-19-2024 11:39-0500 Body mass index (BMI) [Ratio] 33.44 kg/m2 Cesar Whatley DO Work Phone: [facility] 06-19-2024 11:39-0500 Body temperature 98.01 [degF] Cesar Whatley DO Work Phone: [facility] 06-19-2024 11:39-0500 Body weight 80.29 kg Cesar Whatley DO Work Phone: [facility] 06-15-2024 10:18-0500 Body height 154.9 cm Nicola Oberhauser DO Work Phone: [facility] 06-15-2024 10:18-0500 Body mass index (BMI) [Ratio] 35.03 kg/m2 Nicola Oberhauser DO Work Phone: [facility] 06-15-2024 10:18-0500 Body weight 84.1 kg Nicola Oberhauser DO Work Phone: [facility] 06-15-2024 10:18-0500 Diastolic blood pressure 77 mm[Hg] Nicola Oberhauser DO Work Phone: [facility] 06-15-2024 10:18-0500 Heart rate 76 /min Nicola Oberhauser DO Work Phone: [facility] 06-15-2024 10:18-0500 SaO2% (BldA) [Mass fraction] 98 % Nicola Oberhauser DO Work Phone: [facility] 06-15-2024 10:18-0500 Systolic blood pressure 116 mm[Hg] Nicola Oberhauser DO Work Phone: [facility] 05-22-2024 02:07-0500 Diastolic blood pressure 80 mm[Hg] Ramesh Ridge DO Work Phone: [facility] 05-22-2024 02:07-0500 Heart rate 70 /min Ramesh Mcelroyjacinta DO Work Phone: [facility] 05-22-2024 02:07-0500 Respiratory rate 16 /min Ramesh Ridge DO Work Phone: [facility] 05-22-2024 02:07-0500 SaO2% (BldA) [Mass fraction] 97 % Ramesh Ridge DO Work Phone: [facility] 05-22-2024 02:07-0500 Systolic blood pressure 112 mm[Hg] Ramesh Mcelroyjacinta DO Work Phone: [facility] 05-22-2024 01:00-0500 Body temperature 98.8 [degF] Ramesh Lemasters DO Work Phone: [facility] 05-21-2024 23:19-0500 Body height 154.9 cm Ramesh Mcelroyjacinta DO Work Phone: [facility] 05-21-2024 23:19-0500 Body mass index (BMI) [Ratio] 34.39 kg/m2 Ramesh Serrano DO Work Phone: [facility] 05-21-2024 23:19-0500 Body weight 82.56 kg Ramesh Navijacinta DO Work Phone: [facility] 05-10-2024 10:03-0500 Body height 154.9 cm Rach Ballesteros [employer] DISPATCHER[employer] WORK[employer] Work Phone: [facility] 05-10-2024 10:03-0500 Body mass index (BMI) [Ratio] 35.04 kg/m2 Rach Gillner [employer] DISP[employer]ER[employer] WORK[employer] Work Phone: [facility] 05-10-2024 10:03-0500 Body temperature 98.4 [degF] Rach Gillner TOOL DISPATCHER[employer] WORK[employer] Work Phone: [facility] 05-10-2024 10:03-0500 Body weight 84.13 kg Rach Gillner TOOL DISPATCHER[employer] WORK[employer] Work Phone: [facility] 05-10-2024 10:03-0500 Diastolic blood pressure 75 mm[Hg] Rach Gillner [employer]OL DISPATCHER[employer] WORKER Work Phone: [facility] 05-10-2024 10:03-0500 Heart rate 76 /min Rach Gillner TOOL DISPATCHER[employer] WORKER Work Phone: [facility] 05-10-2024 10:03-0500 Systolic blood pressure 109 mm[Hg] Rach Gillner TO[employer] DISPATCHER[employer] WORKER Work Phone: [facility] 03-16-2024 10:27-0500 Body height 154.9 cm Nicola Oberhauser DO Work Phone: [facility] 03-16-2024 10:27-0500 Body mass index (BMI) [Ratio] 34.58 kg/m2 Nicola Oberhauser DO Work Phone: [facility] 03-16-2024 10:27-0500 Body weight 83.01 kg Nicola Oberhauser DO Work Phone: [facility] 03-16-2024 10:27-0500 Diastolic blood pressure 75 mm[Hg] Nicola Oberhauser DO Work Phone: [facility] 03-16-2024 10:27-0500 Heart rate 77 /min Nicola Oberhauser DO Work Phone: [facility] 03-16-2024 10:27-0500 Systolic blood pressure 114 mm[Hg] Nicola Oberhauser DO Work Phone: [facility] 02-13-2024 18:30-0400 Diastolic blood pressure 89 mm[Hg] Nicola Oberhauser DO Work Phone: [facility] 02-13-2024 18:30-0400 Heart rate 99 /min Nicola Oberhauser DO Work Phone: [facility] 02-13-2024 18:30-0400 Respiratory rate 16 /min Nicola Oberhauser DO Work Phone: [facility] 02-13-2024 18:30-0400 SaO2% (BldA) [Mass fraction] 96 % Nicola Oberhauser DO Work Phone: [facility] 02-13-2024 18:30-0400 Systolic blood pressure 107 mm[Hg] Nicola Oberhauser DO Work Phone: [facility] 02-13-2024 15:53-0400 Body height 154.9 cm Nicola Oberhauser DO Work Phone: [facility] 02-13-2024 15:53-0400 Body mass index (BMI) [Ratio] 33.44 kg/m2 Nicola Oberhauser DO Work Phone: [facility] 02-13-2024 15:53-0400 Body temperature 98.49 [degF] Nicola Oberhauser DO Work Phone: [facility] 02-13-2024 15:53-0400 Body weight 80.29 kg Nicola Oberhauser DO Work Phone: [facility] 02-12-2024 02:51-0400 Diastolic blood pressure 78 mm[Hg] Ramesh Serrano DO Work Phone: [facility] 02-12-2024 02:51-0400 Heart rate 80 /min Ramesh Serrano DO Work Phone: [facility] 02-12-2024 02:51-0400 Respiratory rate 20 /min Ramesh Serrano DO Work Phone: [facility] 02-12-2024 02:51-0400 SaO2% (BldA) [Mass fraction] 99 % Ramesh Serrano DO Work Phone: [facility] 02-12-2024 02:51-0400 Systolic blood pressure 109 mm[Hg] Ramesh Serrano DO Work Phone: [facility] 02-12-2024 00:28-0400 Body mass index (BMI) [Ratio] 33.44 kg/m2 Ramesh Serrano DO Work Phone: [facility] 02-12-2024 00:28-0400 Body temperature 98.1 [degF] Ramesh Serrano DO Work Phone: [facility] 02-12-2024 00:28-0400 Body weight 80.29 kg Ramesh Serrano DO Work Phone: [facility] 02-07-2024 15:25-0400 Body temperature 97.59 [degF] Cesar Whatley DO Work Phone: [facility] 02-07-2024 15:25-0400 Diastolic blood pressure 66 mm[Hg] Cesar Whatley DO Work Phone: [facility] 02-07-2024 15:25-0400 Heart rate 67 /min Cesar Whatley DO Work Phone: [facility] 02-07-2024 15:25-0400 Respiratory rate 16 /min Cesar Whatley DO Work Phone: [facility] 02-07-2024 15:25-0400 SaO2% (BldA) [Mass fraction] 95 % Cesar Whatley DO Work Phone: [facility] 02-07-2024 15:25-0400 Systolic blood pressure 101 mm[Hg] Cesar Whatley DO Work Phone: [facility] 02-05-2024 21:20-0400 Body height 154.9 cm Cesar Whatley DO Work Phone: [facility] 02-05-2024 21:20-0400 Body mass index (BMI) [Ratio] 33.82 kg/m2 Cesar Whatley DO Work Phone: [facility] 02-05-2024 21:20-0400 Body weight 81.2 kg Cesar Whatley DO Work Phone: [facility] 01-15-2024 09:11-0400 Body height 154.9 cm Titi Quezada DO Work Phone: [facility] 01-15-2024 09:11-0400 Body mass index (BMI) [Ratio] 34.12 kg/m2 Titi Christieae DO Work Phone: [facility] 01-15-2024 09:11-0400 Body weight 81.92 kg Titi Christieae DO Work Phone: [facility] 01-15-2024 09:11-0400 Diastolic blood pressure 73 mm[Hg] Titi Thomae DO Work Phone: [facility] 01-15-2024 09:11-0400 Heart rate 69 /min Titi Thomae DO Work Phone: [facility] 01-15-2024 09:11-0400 Systolic blood pressure 116 mm[Hg] Titi Thomae DO Work Phone: [facility] 12-30-2023 14:47-0400 Body height 154.9 cm Nicola Glez DO Work Phone: [facility] 12-30-2023 14:47-0400 Body mass index (BMI) [Ratio] 33.25 kg/m2 Nicola Oberhauser DO Work Phone: [facility] 12-30-2023 14:47-0400 Body weight 79.83 kg Nicola Oberhauser DO Work Phone: [facility] 12-30-2023 14:47-0400 Diastolic blood pressure 74 mm[Hg] Nicola Oberhauser DO Work Phone: [facility] 12-30-2023 14:47-0400 Heart rate 90 /min Nicola Oberhauser DO Work Phone: [facility] 12-30-2023 14:47-0400 Systolic blood pressure 125 mm[Hg] Nicola Oberhauser DO Work Phone: [facility] 12-16-2023 14:32-0400 Body height 154.9 cm Michelle Rubineder RED CROSS WORKER Work Phone: [facility] 12-16-2023 14:32-0400 Body mass index (BMI) [Ratio] 32.31 kg/m2 Michelle Rubineder RED CROSS WORKER Work Phone: [facility] 12-16-2023 14:32-0400 Body weight 77.56 kg Michelle Rubineder RED CROSS WORKER Work Phone: [facility] 12-16-2023 14:32-0400 Diastolic blood pressure 72 mm[Hg] Michelle Veronica RED CROSS WORKER Work Phone: [facility] 12-16-2023 14:32-0400 Heart rate 74 /min Michelle Veronica RED CROSS WORKER Work Phone: [facility] 12-16-2023 14:32-0400 Respiratory rate 16 /min Michelle Veronica RED CROSS WORKER Work Phone: [facility] 12-16-2023 14:32-0400 SaO2% (BldA) [Mass fraction] 98 % Michelle Veronica RED CROSS WORKER Work Phone: [facility] 12-16-2023 14:32-0400 Systolic blood pressure 116 mm[Hg] Michelle Lambert CNP Work Phone: [facility] 11-04-2023 13:01-0400 Body height 154.9 cm Michelle Lambert CNP Work Phone: [facility] 11-04-2023 13:01-0400 Body mass index (BMI) [Ratio] 34.39 kg/m2 Michelle Lambert CNP Work Phone: [facility] 11-04-2023 13:01-0400 Body weight 82.56 kg Michelle Lambert CNP Work Phone: [facility] 11-04-2023 13:01-0400 Diastolic blood pressure 73 mm[Hg] Michelle Lambert CNP Work Phone: [facility] 11-04-2023 13:01-0400 Heart rate 72 /min Michelle Lambert CNP Work Phone: [facility] 11-04-2023 13:01-0400 SaO2% (BldA) [Mass fraction] 95 % Michelle Lambert CNP Work Phone: [facility] 11-04-2023 13:01-0400 Systolic blood pressure 110 mm[Hg] Michelle Lambert RED CROSS WORKER Work Phone: [facility] 10-27-2023 15:50-0400 Body temperature 98.71 [degF] Natalya Bronx DPM Work Phone: [facility] 10-27-2023 15:50-0400 Diastolic blood pressure 70 mm[Hg] Natalya Rashad DPM Work Phone: [facility] 10-27-2023 15:50-0400 Heart rate 85 /min Natalya Rashad DPM Work Phone: [facility] 10-27-2023 15:50-0400 Systolic blood pressure 109 mm[Hg] Natalya Bronx DPM Work Phone: [facility] 09-25-2023 08:56-0400 Body height 154.9 cm Nicola Oberhauser DO Work Phone: [facility] 09-25-2023 08:56-0400 Body mass index (BMI) [Ratio] 35.14 kg/m2 Nicola Oberhauser DO Work Phone: [facility] 09-25-2023 08:56-0400 Body weight 84.37 kg Nicola Oberhauser DO Work Phone: [facility] 09-25-2023 08:56-0400 Diastolic blood pressure 71 mm[Hg] Nicola Oberhauser DO Work Phone: [facility] 09-25-2023 08:56-0400 Heart rate 87 /min Nicola Oberhauser DO Work Phone: [facility] 09-25-2023 08:56-0400 Systolic blood pressure 110 mm[Hg] Nicola Oberhauser DO Work Phone: [facility] 09-03-2023 12:16-0400 Diastolic blood pressure 72 mm[Hg] Checo Mo MD Work Phone: [facility] 09-03-2023 12:16-0400 Heart rate 75 /min Checo Mo MD Work Phone: [facility] 09-03-2023 12:16-0400 SaO2% (BldA) [Mass fraction] 96 % Checo Mo MD Work Phone: [facility] 09-03-2023 12:16-0400 Systolic blood pressure 109 mm[Hg] Checo Mo MD Work Phone: [facility] 09-03-2023 11:34-0400 Body temperature 96.8 [degF] Checo Mo MD Work Phone: [facility] 09-03-2023 11:34-0400 Respiratory rate 16 /min Checo Mo MD Work Phone: [facility] 08-31-2023 15:45-0400 Body height 154.9 cm Checo Mo MD Work Phone: [facility] 08-31-2023 15:45-0400 Body mass index (BMI) [Ratio] 35.37 kg/m2 Checo Mo MD Work Phone: [facility] 08-31-2023 15:45-0400 Body weight 84.9 kg Checo Mo MD Work Phone: [facility] 08-14-2023 15:05-0400 Body mass index (BMI) [Ratio] 36.11 kg/m2 Rach Hepner TOOL DISPATCHER-RED CROSS WORKER Work Phone: [facility] 08-14-2023 15:05-0400 Body temperature 98.71 [degF] Rach Hepner TOOL DISPATCHER-RED CROSS WORKER Work Phone: [facility] 08-14-2023 15:05-0400 Body weight 86.64 kg Rach Hepner TOOL DISPATCHER-RED CROSS WORKER Work Phone: [facility] 08-14-2023 15:05-0400 Diastolic blood pressure 73 mm[Hg] Rach Hepner TOOL DISPATCHER-RED CROSS WORKER Work Phone: [facility] 08-14-2023 15:05-0400 Heart rate 81 /min Rach Hepner TOOL DISPATCHER-RED CROSS WORKER Work Phone: [facility] 08-14-2023 15:05-0400 Systolic blood pressure 106 mm[Hg] Rach Hepner TOOL DISPATCHER-RED CROSS WORKER Work Phone: [facility] 08-13-2023 15:16-0400 Body height 157.5 cm Nicolle Cioce TOOL DISPATCHER.RED CROSS WORKER Work Phone: [facility] 08-13-2023 15:16-0400 Body mass index (BMI) [Ratio] 34.79 kg/m2 Nicolle Cioce TOOL DISPATCHER.RED CROSS WORKER Work Phone: [facility] 08-13-2023 15:16-0400 Body temperature 97.59 [degF] Nicolle Cioce TOOL DISPATCHER.RED CROSS WORKER Work Phone: [facility] 08-13-2023 15:16-0400 Body weight 86.27 kg Nicolle Cioce TOOL DISPATCHER.RED CROSS WORKER Work Phone: [facility] 08-13-2023 15:16-0400 Diastolic blood pressure 78 mm[Hg] Nicolle Cioce TOOL DISPATCHER.RED CROSS WORKER Work Phone: [facility] 08-13-2023 15:16-0400 Heart rate 89 /min Nicolle Cioce TOOL DISPATCHER.RED CROSS WORKER Work Phone: [facility] 08-13-2023 15:16-0400 SaO2% (BldA) [Mass fraction] 97 % Nicolle Cioce TOOL DISPATCHER.RED CROSS WORKER Work Phone: [facility] 08-13-2023 15:16-0400 Systolic blood pressure 116 mm[Hg] Nicolle Cioce TOOL DISPATCHER.RED CROSS WORKER Work Phone: [facility] 08-12-2023 13:50-0400 Body height 154.[address] Nicola Glez Work Phone: [facility] 08-12-2023 13:41-0400 Body mass index (BMI) [Ratio] 35.8 kg/m2 Dr. Nicola Glez Work Phone: [facility] 08-12-2023 13:41-0400 Body weight 85.[address] Nicola Glez Work Phone: [facility] 08-12-2023 13:41-0400 Diastolic blood pressure 82 mm[Hg] Dr. Nicola Glez Work Phone: [facility] 08-12-2023 13:41-0400 Systolic blood pressure 128 mm[Hg] Dr. Nicola Glez Work Phone: [facility] 07-28-2023 09:20-0400 Body height 154.9 cm Michelle Lambert RED CROSS WORKER Work Phone: [facility] 07-28-2023 09:20-0400 Body mass index (BMI) [Ratio] 36.09 kg/m2 Michelle Lambert CNP Work Phone: [facility] 07-28-2023 09:20-0400 Body weight 86.64 kg Michelle Lambert RED CROSS WORKER Work Phone: [facility] 07-28-2023 09:20-0400 Diastolic blood pressure 68 mm[Hg] Michelle Lambert RED CROSS WORKER Work Phone: [facility] 07-28-2023 09:20-0400 Heart rate 76 /min Michelle Lambert CNP Work Phone: [facility] 07-28-2023 09:20-0400 Respiratory rate 16 /min Michelle Lambert RED CROSS WORKER Work Phone: [facility] 07-28-2023 09:20-0400 SaO2% (BldA) [Mass fraction] 96 % Michelle Lambert CNP Work Phone: [facility] 07-28-2023 09:20-0400 Systolic blood pressure 114 mm[Hg] Michelle Lambert CNP Work Phone: [facility] 07-02-2023 10:57-0400 Body height 157.5 cm Nicolle Cioce TOOL DISPATCHER.RED CROSS WORKER Work Phone: [facility] 07-02-2023 10:57-0400 Body temperature 98.2 [degF] Nicolle Cioce TOOL DISPATCHER.RED CROSS WORKER Work Phone: [facility] 07-02-2023 10:57-0400 Body weight 88 kg Nicolle Cioce TOOL DISPATCHER.RED CROSS WORKER Work Phone: [facility] 07-02-2023 10:57-0400 Diastolic blood pressure 78 mm[Hg] Nicolle Cioce TOOL DISPATCHER.RED CROSS WORKER Work Phone: [facility] 07-02-2023 10:57-0400 Heart rate 96 /min Nicolle Cioce TOOL DISPATCHER.RED CROSS WORKER Work Phone: [facility] 07-02-2023 10:57-0400 SaO2% (BldA) [Mass fraction] 95 % Nicolle Cioce TOOL DISPATCHER.RED CROSS WORKER Work Phone: [facility] 07-02-2023 10:57-0400 Systolic blood pressure 124 mm[Hg] Nicolle Cioce TOOL DISPATCHER.RED CROSS WORKER Work Phone: [facility] 06-25-2023 15:38-0500 Body height 154.9 cm Nicola Oberhauser DO Work Phone: [facility] 06-25-2023 15:38-0500 Body mass index (BMI) [Ratio] 35.92 kg/m2 Nicola Oberhauser DO Work Phone: [facility] 06-25-2023 15:38-0500 Body weight 86.18 kg Nicola Oberhauser DO Work Phone: [facility] 06-25-2023 15:38-0500 Diastolic blood pressure 74 mm[Hg] Nicola Oberhauser DO Work Phone: [facility] 06-25-2023 15:38-0500 Heart rate 88 /min Nicola Oberhauser DO Work Phone: [facility] 06-25-2023 15:38-0500 Systolic blood pressure 116 mm[Hg] Nicola Oberhauser DO Work Phone: [facility] 06-20-2023 16:00-0500 Body temperature 97 [degF] Stephanie Hernadnez MD Work Phone: [facility] 06-20-2023 16:00-0500 Diastolic blood pressure 63 mm[Hg] Stephanie Hernandez MD Work Phone: [facility] 06-20-2023 16:00-0500 Heart rate 78 /min Stephanie Hernandez MD Work Phone: [facility] 06-20-2023 16:00-0500 Respiratory rate 16 /min Stephanie Hernandez MD Work Phone: [facility] 06-20-2023 16:00-0500 SaO2% (BldA) [Mass fraction] 97 % Stephanie Hernandez MD Work Phone: [facility] 06-20-2023 16:00-0500 Systolic blood pressure 108 mm[Hg] Stephanie Hernandez MD Work Phone: [facility] 06-19-2023 08:00-0500 Body mass index (BMI) [Ratio] 34.22 kg/m2 Stephanie Hernandez MD Work Phone: 0(077)[phone] [place] [address] 06-19-2023 08:00-0500 Body weight 82.1 kg Stephanie Hernandez MD Work Phone: 0(959)[phone] [place] [address] 06-17-2023 01:42-0500 Body height 154.9 cm Stephanie Hernandez MD Work Phone: 6(730)[phone] [place] [address] 06-12-2023 08:39-0500 Body height 154.9 cm Titi Quezada DO Work Phone: [facility] 06-12-2023 08:39-0500 Body mass index (BMI) [Ratio] 36.43 kg/m2 Titi Thomae DO Work Phone: [facility] 06-12-2023 08:39-0500 Body weight 87.45 kg Titi Thomjose DO Work Phone: [facility] 06-10-2023 09:05-0500 Body mass index (BMI) [Ratio] 36.09 kg/m2 Trinity ALEXANDER DNP Work Phone: [facility] 06-10-2023 09:05-0500 Body weight 86.64 kg Trinity ALEXANDER, DNP Work Phone: [facility] 06-10-2023 09:05-0500 Diastolic blood pressure 74 mm[Hg] Trinity ALEXANDER, DNP Work Phone: [facility] 06-10-2023 09:05-0500 Heart rate 75 /min Trinity Lerma AGUSTIN-RED CROSS WORKER, DNP Work Phone: [facility] 06-10-2023 09:05-0500 SaO2% (BldA) [Mass fraction] 97 % Trinity Lerma APRN-CORINA, DNP Work Phone: [facility] 06-10-2023 09:05-0500 Systolic blood pressure 118 mm[Hg] Trinity Lerma APRN-RED CROSS WORKER, DNP Work Phone: [facility] 05-22-2023 10:48-0500 Body height 154.9 cm Titi Quezada DO Work Phone: [facility] 05-22-2023 10:48-0500 Body mass index (BMI) [Ratio] 34.28 kg/m2 Titi Quezada DO Work Phone: [facility] 05-22-2023 10:48-0500 Body weight 82.28 kg Titi Quezada DO Work Phone: [facility] 05-19-2023 10:47-0500 Body height 154.9 cm Michelle Lambert CNP Work Phone: [facility] 05-19-2023 10:47-0500 Body mass index (BMI) [Ratio] 35.86 kg/m2 Michelle Lambert CNP Work Phone: [facility] 05-19-2023 10:47-0500 Body weight 86.09 kg Michelle Lambert CNP Work Phone: [facility] 05-19-2023 10:47-0500 Diastolic blood pressure 83 mm[Hg] Michelle Lambert CNP Work Phone: [facility] 05-19-2023 10:47-0500 Heart rate 65 /min Michelle Lambert CNP Work Phone: [facility] 05-19-2023 10:47-0500 SaO2% (BldA) [Mass fraction] 97 % Michelle Lambert CNP Work Phone: [facility] 05-19-2023 10:47-0500 Systolic blood pressure 131 mm[Hg] Michelle Veronica RED CROSS WORKER Work Phone: [facility] 03-27-2023 23:55-0500 Diastolic blood pressure 77 mm[Hg] Dr. Nicola Glez Work Phone: [facility] 03-27-2023 23:55-0500 Heart rate 65 /min Dr. Nicola Glez Work Phone: [facility] 03-27-2023 23:55-0500 Respiratory rate 16 /min Dr. Nicola Glez Work Phone: [facility] 03-27-2023 23:55-0500 SaO2% (BldA) [Mass fraction] 99 % Dr. Nicola Glez Work Phone: [facility] 03-27-2023 23:55-0500 Systolic blood pressure 121 mm[Hg] Dr. Nicola Glez Work Phone: [facility] 03-27-2023 17:15-0500 Body height 154.[address] Nicola Glez Work Phone: [facility] 03-27-2023 17:15-0500 Body mass index (BMI) [Ratio] 35 kg/m2 Dr. Nicola Glez Work Phone: [facility] 03-27-2023 17:15-0500 Body temperature 97.6 [degF] Dr. Nicola lGez Work Phone: [facility] 03-27-2023 17:15-0500 Body weight 84.[address] Nicola Glez Work Phone: [facility] 03-21-2023 20:00-0500 Respiratory rate 18 /min Dr. Nicola Glez Work Phone: [facility] 03-21-2023 17:22-0500 Body height 154.[address] Nicola Glez Work Phone: [facility] 03-21-2023 17:22-0500 Body mass index (BMI) [Ratio] 34.6 kg/m2 Dr. Nicola Glez Work Phone: [facility] 03-21-2023 17:22-0500 Body temperature 98.1 [degF] Dr. Nicola Glez Work Phone: [facility] 03-21-2023 17:22-0500 Body weight 83.[address] Nicola Glez Work Phone: [facility] 03-21-2023 17:22-0500 Diastolic blood pressure 70 mm[Hg] Dr. Nicola Glez Work Phone: [facility] 03-21-2023 17:22-0500 Heart rate 74 /min Dr. Nicola Glez Work Phone: [facility] 03-21-2023 17:22-0500 SaO2% (BldA) [Mass fraction] 98 % Dr. Nicola Glez Work Phone: [facility] 03-21-2023 17:22-0500 Systolic blood pressure 133 mm[Hg] Dr. Nicola Glez Work Phone: [facility] 03-21-2023 16:24-0500 Body mass index (BMI) [Ratio] 35 kg/m2 Dr. Nicola Glez Work Phone: [facility] 03-21-2023 16:24-0500 Body weight 84.[address] Nicola Glez Work Phone: [facility] 03-21-2023 16:24-0500 Diastolic blood pressure 75 mm[Hg] Dr. Nicola lGez Work Phone: [facility] 03-21-2023 16:24-0500 Systolic blood pressure 118 mm[Hg] Dr. Nicola Glez Work Phone: [facility] 03-14-2023 13:40-0500 Diastolic blood pressure 72 mm[Hg] Juliane Harrington DO Work Phone: [facility] 03-14-2023 13:40-0500 Heart rate 88 /min Juliane Basurtoersen DO Work Phone: 1(229)595-342[address] [place] [address] 03-14-2023 13:40-0500 Respiratory rate 18 /min Juliane Basurtoersen DO Work Phone: 0(506)[phone] [place] [address] 03-14-2023 13:40-0500 SaO2% (BldA) [Mass fraction] 98 % Juliane Basurtoersen DO Work Phone: 4(701)215-471508 [place] [address] 03-14-2023 13:40-0500 Systolic blood pressure 106 mm[Hg] Juliane Harrington DO Work Phone: 6(025)123-625[address] [place] [address] 03-14-2023 10:40-0500 Body height 154.9 cm Juliane Harrington DO Work Phone: 7(712)978-483508 [place] [address] 03-14-2023 10:40-0500 Body mass index (BMI) [Ratio] 34.39 kg/m2 Juliane Basurtoersen DO Work Phone: 4(696)586-441608 [place] [address] 03-14-2023 10:40-0500 Body temperature 97.3 [degF] Juliane Harirngton DO Work Phone: 9(032)754-297508 [place] [address] 03-14-2023 10:40-0500 Body weight 82.56 kg Juliane Harrington DO Work Phone: [facility] 01-27-2023 13:33-0400 Body height 154.[address] Nicola Glez Work Phone: [facility] 01-27-2023 13:33-0400 Body mass index (BMI) [Ratio] 34.2 kg/m2 Dr. Nicola Glez Work Phone: [facility] 01-27-2023 13:33-0400 Body weight 82.[address] Nicola Glez Work Phone: [facility] 01-27-2023 13:33-0400 Diastolic blood pressure 90 mm[Hg] Dr. Nicola Glez Work Phone: [facility] 01-27-2023 13:33-0400 Systolic blood pressure 134 mm[Hg] Dr. Nicola Glez Work Phone: [facility] 08-19-2022 13:08-0400 Body height 154.9 cm Grant Newbill PA-C Work Phone: [facility] 08-19-2022 13:08-0400 Body mass index (BMI) [Ratio] 33.44 kg/m2 Grant Newbill PA-C Work Phone: [facility] 08-19-2022 13:08-0400 Body weight 80.29 kg Grant Newbill PA-C Work Phone: [facility] 08-19-2022 13:08-0400 Diastolic blood pressure 60 mm[Hg] Grant Newbill PA-C Work Phone: [facility] 08-19-2022 13:08-0400 Heart rate 68 /min Grant Newbill PA-C Work Phone: [facility] 08-19-2022 13:08-0400 SaO2% (BldA) [Mass fraction] 98 % Grant Newbill PA-C Work Phone: [facility] 08-19-2022 13:08-0400 Systolic blood pressure 108 mm[Hg] Grant Newbill PA-C Work Phone: [facility] 03-18-2022 14:46-0500 Diastolic blood pressure 78 mm[Hg] Kiersten Mayo MD Work Phone: [facility] 03-18-2022 14:46-0500 Heart rate 90 /min Kiersten Mayo MD Work Phone: [facility] 03-18-2022 14:46-0500 Respiratory rate 16 /min Kiersten Mayo MD Work Phone: [facility] 03-18-2022 14:46-0500 SaO2% (BldA) [Mass fraction] 95 % Kiersten Mayo MD Work Phone: [facility] 03-18-2022 14:46-0500 Systolic blood pressure 113 mm[Hg] Kiersten Mayo MD Work Phone: [facility] 03-18-2022 14:44-0500 Body height 154.9 cm Kiersten Mayo MD Work Phone: [facility] 03-18-2022 14:44-0500 Body mass index (BMI) [Ratio] 32.88 kg/m2 Kiersten Mayo MD Work Phone: [facility] 03-18-2022 14:44-0500 Body weight 78.93 kg Kiersten Mayo MD Work Phone: [facility] 02-26-2022 13:22-0500 Body height 154.94 cm Nicola L Oberhauser Work Phone: [facility] Work Phone: 02-26-2022 13:22-0500 Body mass index (BMI) [Ratio] 33.44 kg/m2 Nicola L Oberhauser Work Phone: [facility] Work Phone: 02-26-2022 13:22-0500 Body surface area Derived from formula 1.79 m2 Nicola L Oberhauser Work Phone: [facility] Work Phone: 02-26-2022 13:22-0500 Body weight 80.29 kg Nicola L Oberhauser Work Phone: [facility] Work Phone: 02-26-2022 13:22-0500 Diastolic blood pressure 77 mm[Hg] Nicola L Oberhauser Work Phone: [facility] Work Phone: 02-26-2022 13:22-0500 Heart rate 85 /min Nicola L Oberhauser Work Phone: [facility] Work Phone: 02-26-2022 13:22-0500 Systolic blood pressure 114 mm[Hg] Nicola L Oberhauser Work Phone: [facility] Work Phone: 01-24-2022 10:39-0400 Body height 154.94 cm ANALYTICS SENIOR MANAGER-C Radha Podlogar ANALYTICS SENIOR MANAGER Work Phone: [facility] Work Phone: 01-24-2022 10:39-0400 Body mass index (BMI) [Ratio] 33.6 kg/m2 ANALYTICS SENIOR MANAGER-C Radha Podlogar ANALYTICS SENIOR MANAGER Work Phone: [facility] Work Phone: 01-24-2022 10:39-0400 Body weight 80.79 kg ANALYTICS SENIOR MANAGER-C Radha Podlogar ANALYTICS SENIOR MANAGER Work Phone: [facility] Work Phone: 01-24-2022 10:39-0400 Diastolic blood pressure 74 mm[Hg] ANALYTICS SENIOR MANAGER-C Radha Podlogar ANALYTICS SENIOR MANAGER Work Phone: [facility] Work Phone: 01-24-2022 10:39-0400 Systolic blood pressure 109 mm[Hg] ANALYTICS SENIOR MANAGER-C Radha Podlogar ANALYTICS SENIOR MANAGER Work Phone: [facility] Work Phone: 01-23-2022 15:25-0400 Body height 154.94 cm Nicola L Oberhauser Work Phone: VM-Ozicsmsoqm-Lxecqq [facility] [address] Work Phone: 01-23-2022 15:25-0400 Body mass index (BMI) [Ratio] 33.63 kg/m2 Nicola L Oberhauser Work Phone: RT-Tuimwbjxyc-Pzjqth [facility] [address] Work Phone: 01-23-2022 15:25-0400 Body surface area Derived from formula 1.8 m2 Nicola L Oberhauser Work Phone: HN-Wluzezonyg-Wojluq d [address] Work Phone: 01-23-2022 15:25-0400 Body weight 80.74 kg Nicola L Oberhauser Work Phone: FF-Ppsduksdek-Wegsnz [address] Work Phone: 01-23-2022 15:25-0400 Diastolic blood pressure 84 mm[Hg] Nicola L Oberhauser Work Phone: RN-Jhonwqwhcn-Keqmgo d [address] Work Phone: 01-23-2022 15:25-0400 Heart rate 81 /min Nicola L Oberhauser Work Phone: UE-Arekijrkaw-Gtshmr [address] Work Phone: 01-23-2022 15:25-0400 SaO2% (BldA) [Mass fraction] 96 % Nicola L Oberhauser Work Phone: EV-Qqdimxkxaa-Rkepfs [address] Work Phone: 01-23-2022 15:25-0400 Systolic blood pressure 112 mm[Hg] Nicola L Oberhauser Work Phone: QB-Mbbakcetwl-Aqfxdx d [address] Work Phone: 12-12-2021 14:12-0400 Body height 156.21 cm Nicola Oberhauser DO Work Phone: [facility] Work Phone: 12-12-2021 14:12-0400 Body mass index (BMI) [Ratio] 34.02 kg/m2 Nicola Oberhauser DO Work Phone: [facility] Work Phone: 12-12-2021 14:12-0400 Body surface area Derived from formula 1.83 m2 Nicola Oberhauser DO Work Phone: [facility] Work Phone: 12-12-2021 14:12-0400 Body weight 83.01 kg Nicola Oberhauser DO Work Phone: [facility] Work Phone: 12-12-2021 14:12-0400 Diastolic blood pressure 77 mm[Hg] Nicola Oberhauser DO Work Phone: [facility] Work Phone: 12-12-2021 14:12-0400 Heart rate 72 /min Nicola Oberhauser DO Work Phone: [facility] Work Phone: 12-12-2021 14:12-0400 Systolic blood pressure 118 mm[Hg] Nicola Oberhauser DO Work Phone: [facility] Work Phone: 02-03-2021 21:52-0400 Diastolic blood pressure 85 mm[Hg] Text Entry Free [facility] 02-03-2021 21:52-0400 Heart rate 74 /min Text Entry Free [facility] 02-03-2021 21:52-0400 Respiratory rate 16 /min Text Entry Free [facility] 02-03-2021 21:52-0400 SaO2% (BldA) [Mass fraction] 97 % Text Entry Free [facility] 02-03-2021 21:52-0400 Systolic blood pressure 131 mm[Hg] Text Entry Free [facility] 02-03-2021 16:36-0400 Body temperature 98.06 [degF] Text Entry Free [facility] 02-03-2021 16:36-0400 Body weight 79 kg Text Entry Free [facility] 01-27-2021 14:00-0400 Body temperature 98.24 [degF] Text Entry Free [facility] [place] 01-27-2021 05:00-0400 Diastolic blood pressure 63 mm[Hg] Text Entry Free [facility] 01-27-2021 05:00-0400 Heart rate 65 /min Text Entry Free [facility] [place] 01-27-2021 05:00-0400 Respiratory rate 16 /min Text Entry Free [facility] 01-27-2021 05:00-0400 SaO2% (BldA) [Mass fraction] 96 % Text Entry Free [facility] 01-27-2021 05:00-0400 Systolic blood pressure 106 mm[Hg] Text Entry Free [facility] 03-01-2020 07:48-0500 Body Temperature 97.9 [degF] Raquel Gutierres [employer] [place] , [place] 03-01-2020 07:48-0500 BP Diastolic 64 mm[Hg] [facility] [place] 03-01-2020 07:48-0500 BP Systolic 109 mm[Hg] [facility] [place] 03-01-2020 07:48-0500 Pulse (Heart Rate) 78 /min [facility] [place] 03-01-2020 07:48-0500 Pulse Oximetry 100 % Raquel [employer] [facility] , [place] 03-01-2020 07:48-0500 Respiratory Rate 16 /min Raquel Gutierres [employer] 02-26-2020 14:12-0500 Height 154.9 cm [facility] [place] 02-25-2020 19:45-0500 BMI (Body Mass Index) 32.5 kg/m2 [facility] [place] 02-25-2020 19:45-0500 Body weight 78.02 kg [facility] [place] 03-10-2017 11:37-0500 BMI (Body Mass Index) 30.98 kg/m2 Angelita Woods [facility] 03-10-2017 11:37-0500 BP Diastolic 81 mm[Hg] Angelita Woods [facility] 03-10-2017 11:37-0500 BP Systolic 120 mm[Hg] [facility] 03-10-2017 11:37-0500 Height 154.94 cm Angelita Woods [facility] 03-10-2017 11:37-0500 Weight 74.39 kg Angelita Woods [facility] 03-03-2017 11:55-0500 BMI (Body Mass Index) 31.17 kg/m2 Angelita Woods [facility] 03-03-2017 11:55-0500 BP Diastolic 78 mm[Hg] Angelita Woods [facility] 03-03-2017 11:55-0500 BP Systolic 119 mm[Hg] Angelita Woods [facility] 03-03-2017 11:55-0500 Height 154.94 cm Angelita Woods [facility] 03-03-2017 11:55-0500 Weight 74.84 kg Angelita Woods [facility] 02-11-2017 13:31-0400 BMI (Body Mass Index) 32.53 kg/m2 Kasie Aden ANALYTICS SENIOR MANAGER [facility] 02-11-2017 13:31-0400 Body Temperature 97.3 [degF] Kasie Aden ANALYTICS SENIOR MANAGER [facility] Care 02-11-2017 13:31-0400 BP Diastolic 78 mm[Hg] Kasie Aden ANALYTICS SENIOR MANAGER [facility] 02-11-2017 13:31-0400 BP Systolic 120 mm[Hg] Kasie Aden ANALYTICS SENIOR MANAGER [facility] 02-11-2017 13:31-0400 Height 154.94 cm Kasie Aden ANALYTICS SENIOR MANAGER [facility] 02-11-2017 13:31-0400 Pulse (Heart Rate) 71 /min Kasie Aden NP [facility] 02-11-2017 13:31-0400 Weight 78.11 kg Kasie Aden ANALYTICS SENIOR MANAGER [facility] 08-10-2016 07:23-0400 Body surface area Derived from formula 81.68 mL/min Kasie Aden NP [facility] 10-30-2015 14:42-0400 Body Temperature 96.26 [degF] Kasie Calhouns ANALYTICS SENIOR MANAGER [facility] 10-30-2015 14:42-0400 BSA (Body Surface Area) 1.73 m2 Kasietorri Calhouns ANALYTICS SENIOR MANAGER [facility] 10-30-2015 14:42-0400 Height 154.94 cm Kasie Calhouns ANALYTICS SENIOR MANAGER [facility] 10-30-2015 14:42-0400 Respiratory Rate 18 /min Kasie Calhouns ANALYTICS SENIOR MANAGER [facility] 10-30-2015 14:42-0400 Weight 73.64 kg Kasie Smithtings ANALYTICS SENIOR MANAGER [facility] Encounters Encounter Date Encounter Type Care Provider Facility Start: 11-24-2024 End: 11-24-2024 Emergency department patient visit Antonio Tan MD Work Phone: [facility] Comment on above: Acute exacerbation o f chronic low back pain (Primary Dx) Start: 11-14-2024 End: 11-14-2024 Emergency department patient visit [facility] Start: 11-03-2024 End: 11-03-2024 Telemedicine consultation with patient Michelle Sherin Lambert [facility] Work Phone: [facility] Comment on above: 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); 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; JUANA (generalized anxiety disorder); PTSD (post-traumatic stress disorder); Vitamin D insufficiency Start: 11-03-2024 End: 11-03-2024 ambulatory MICHELLE LAMBERT [facility] Amb[facility] Start: 11-03-2024 ambulatory Jennifer Orozco Facility :[facility] Start: 11-02-2024 End: 11-02-2024 Emergency department patient visit [facility] Start: 10-28-2024 End: 10-28-2024 ambulatory No Primary Care Physician -Laboratory [facility] Start: 10-28-2024 End: 10-28-2024 Patient encounter procedure Micki SALDIVAR-Behzad -Laboratory [facility] Work Phone: Start: 10-28-2024 End: 10-28-2024 ambulatory Micki Gomez Facility:[facility] Start: 10-04-2024 End: 10-04-[address] Nicola Glez DO Work Phone: [facility] Work Phone: Start: 10-04-2024 End: 10-04-2024 Patient encounter procedure Estefania Mc CNM -Lab [facility] Start: 10-04-2024 End: 10-04-2024 ambulatory No Primary Care Physician Facility:[facility] Start: 09-13-2024 End: 09-13-2024 Orders Only Michelle Lambert RED CROSS WORKER Work Phone: [facility] Comment on above: Vitamin D insufficie ncy (Primary Dx) Start: 08-24-2024 End: 08-25-2024 Emergency department patient visit LUAN Walsh [facility] Start: 08-24-2024 End: 08-24-2024 Subsequent hospital visit by physician Chago Alvarez [employer] [facility] Start: 08-24-2024 End: 08-25-2024 Emergency department patient visit Luan Joyner DO Work Phone: [facility] Comment on above: PUD (peptic ulcer di sease) (Primary Dx); Chest wall pain Start: 08-12-2024 End: 08-12-2024 ambulatory MICHELLE LAMBERT [facility] Amb[facility] Start: 08-12-2024 End: 08-12-2024 Telemedicine consultation with patient Michelle Sherin Lambert RED CROSS WORKER Work Phone: [facility] Comment on above: 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 Michelle Huerta DO -[facility] Work Phone: Start: 07-22-2024 End: 07-22-2024 ambulatory No Primary Care Physician Facility:[facility] Start: 07-20-2024 End: 07-20-2024 Office outpatient new 45 minutes Carri Carrasco PA-C Work Phone: [facility] Comment on above: Establishing care wi th new doctor, encounter for (Primary Dx); Type 2 diabetes mellitus with hyperglycemia, with long-term current use of insulin; Metabolic dysfunction-associated steatohepatitis (MASH); PTSD (post-traumatic stress disorder); JUANA (generalized anxiety disorder); Mild recurrent major depression (CMS-HCC); Chronic bilateral low back pain with bilateral sciatica Start: 07-20-2024 End: 07-20-2024 ambulatory CARRI Santo [facility] Amb[facility] Start: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 08-25-2024 Comprehensive metabolic panel Luan Walsh [employer] DO Work Phone: Start: 08-24-2024 Troponin I.cardiac panel - Serum or Plasma by High sensitivity method Luan Joyner [place] Work Phone: Start: 08-24-2024 Ecg routine ecg w/least 12 lds trcg only w/o i&r Luan Walsh Joyner DO Work Phone: Start: 07-19-[address] Nicola Glez DO Work Phone: Start: 07-19-2024 Urnls dip stick/tablet reagent auto microscopy Dr. Nicola Glez DO Work Phone: Start: 07-19-[address] Nicola Glez DO Work Phone: Start: 06-19-2024 Ecg routine ecg w/least 12 lds trcg only w/o i&r Holley Garner PA-C Work Phone: Start: 06-19-2024 Ct angiography chest w/contrast/noncontrast Holley Garner PA-C Work Phone: Start: 06-19-2024 Radiologic exam chest single view Holley Garner PA-C Work Phone: Start: 06-19-2024 Influenza virus A and B and SARS-CoV-2 (COVID-19) identified in Respiratory specimen by GAY with probe detection Holley Garner PA-C Work Phone: Start: 06-19-2024 End: 06-19-2024 Comprehensive metabolic panel Holley JACKSONC Work Phone: Start: 06-19-2024 Troponin I.cardiac panel - Serum or Plasma by High sensitivity method Holley Garner PA-C Work Phone: Start: 05-22-2024 Ct abdomen & pelvis w/contrast material Ramesh Serrano DO Work Phone: Start: 05-21-2024 Comprehensive metabolic panel Ramesh Serrano DO Work Phone: Start: 02-13-2024 Glucose quantitative blood xcpt reagent strip Interface Unspecifiedprovider Work Phone: Start: 02-13-2024 Glucose quantitative blood xcpt reagent strip Interface Unspecifiedprovider Work Phone: Start: 02-13-2024 Glucose quantitative blood xcpt reagent strip Interface Unspecifiedprovider Work Phone: Start: 02-12-2024 Ecg routine ecg w/least 12 lds trcg only w/o i&r Ramesh Serrano DO Work Phone: Start: 02-12-2024 End: 02-12-2024 Glucose quantitative blood xcpt reagent strip Ramesh Serrano DO Work Phone: Start: 02-12-2024 Urinalysis complete W Reflex Culture panel - Urine Ramesh Serrano DO Work Phone: Start: 02-12-2024 Urine test visual color cmprsn meths Ramesh Serrano DO Work Phone: Start: 02-12-2024 Urnls dip stick/tablet reagent auto microscopy Ramesh Serrano DO Work Phone: Start: 02-12-2024 Comprehensive metabolic panel Ramesh Serrano DO Work Phone: Start: 02-12-2024 Radiologic exam chest single view Ramesh Serrano DO Work Phone: Start: 02-07-2024 Glucose quantitative blood xcpt reagent strip Deniz Durand MD Work Phone: Start: 02-07-2024 Glucose quantitative blood xcpt reagent strip Saw Glez MD Work Phone: Start: 02-06-2024 Glucose quantitative blood xcpt reagent strip Saw Glez MD Work Phone: Start: 02-06-2024 Glucose quantitative blood xcpt reagent strip Saw Glez MD Work Phone: Start: 02-06-2024 Mri spinal canal lumbar w/o contrast material Chelsea Jon PA-C Work Phone: Start: 02-06-2024 Glucose quantitative blood xcpt reagent strip Saw Glez MD Work Phone: Start: 02-06-2024 Glucose quantitative blood xcpt reagent strip Saw Glez MD Work Phone: Start: 02-05-2024 Assay of troponin quantitative Cesar Whatley DO Work Phone: Start: 02-05-2024 EXTRA URINE SWANSON TUBE Cesar Whatley D O Work Phone: Start: 02-05-2024 Urinalysis complete W Reflex Culture panel - Urine Cesar Whatley DO Work Phone: Start: 02-05-2024 End: 02-05-2024 Urnls dip stick/tablet rgnt auto w/o microscopy Cesar Whatley DO Work Phone: Start: 02-05-2024 Drug tst prsmv instrmnt chem analyzers pr date Cesar Whatley DO Work Phone: Start: 02-05-2024 Assay of troponin quantitative Cesar Whatley DO Work Phone: Start: 02-05-2024 Ct thorax w/contrast material Cesar Whatley DO Work Phone: Start: 02-05-2024 Ct cervical spine w/o contrast material Cesar Whatley DO Work Phone: Start: 02-05-2024 Ct head/brain w/o contrast material Cesar Whatley DO Work Phone: Start: 02-05-2024 Radiologic examination femur minimum 2 views Cesar Whatley DO Work Phone: Start: 02-05-2024 Basic metabolic panel calcium total Cesar Whatley DO Work Phone: Start: 02-05-2024 Ethanol [Mass/volume] in Serum or Plasma Cesar Whatley DO Work Phone: Start: 02-05-2024 Troponin I.cardiac panel - Serum or Plasma by High sensitivity method Cesar Whatley DO Work Phone: Start: 02-05-2024 Ecg routine ecg w/least 12 lds trcg only w/o i&r Cesar Whatley DO Work Phone: Start: 12-30-2023 Follow-up visit Follow-up NICOLA GLEZ Start: 09-05-2023 Hemoglobin A1c/Hemoglobin.total in Blood NICOLA GLEZ Start: 09-03-2023 Glucose quantitative blood xcpt reagent strip Checo Mo MD Work Phone: Start: 09-03-2023 Glucose quantitative blood xcpt reagent strip Checo Mo MD Work Phone: Start: 09-03-2023 EXTRA TUBES Checo oM MD Work Phone: Start: 09-03-2023 LAVENDER TOP Checo Mo MD Work Phone: Start: 09-03-2023 Comprehensive metabolic panel Amina Wooten [facility]apercy [facility] Work Phone: Start: 09-02-2023 Glucose quantitative blood xcpt reagent strip Checo Mo MD Work Phone: Start: 09-02-2023 Glucose quantitative blood xcpt reagent strip Checo Mo MD Work Phone: Start: 09-02-2023 Glucose quantitative blood xcpt reagent strip Checo Mo MD Work Phone: Start: 09-02-2023 Glucose quantitative blood xcpt reagent strip Checo Mo MD Work Phone: Start: 09-02-2023 Comprehensive metabolic panel Chelsea SALDIVAR-C Work Phone: Start: 09-01-2023 Glucose quantitative blood xcpt reagent strip Checo Mo MD Work Phone: Start: 09-01-2023 Mri abdomen w/o & w/contrast material Chelsea SALDIVAR-C Work Phone: Start: 09-01-2023 Glucose quantitative blood xcpt reagent strip Checo Mo MD Work Phone: Start: 09-01-2023 Mri brain brain stem w/o contrast material Checo Mo MD Work Phone: Start: 09-01-2023 End: 09-01-2023 Comprehensive metabolic panel Checo english MD Work Phone: Start: 08-31-2023 Influenza virus A and B RNA [Identifier] in Unspecified specimen by GAY with probe detection Checo Mo MD Work Phone: Start: 08-31-2023 Respiratory syncytial virus RNA [Presence] in Respiratory specimen by GAY with probe detection Checo Mo MD Work Phone: Start: 08-31-2023 SARS-CoV-2 (COVID-19) RNA [Presence] in Respiratory specimen by GAY with probe detection Checo Mo MD Work Phone: Start: 08-31-2023 Assay of thyroid stimulating hormone tsh Checo Mo MD Work Phone: Start: 08-31-2023 Glucose quantitative blood xcpt reagent strip Checo Mo MD Work Phone: Start: 08-31-2023 Ecg routine ecg w/least 12 lds trcg only w/o i&r Holley Garner PA-C Work Phone: Start: 08-31-2023 Glucose quantitative blood xcpt reagent strip Interface Unspecifiedprovider Work Phone: Start: 08-31-2023 Ct abdomen & pelvis w/contrast material Holley Barrioso PA-C Work Phone: Start: 08-31-2023 Ct head/brain w/o contrast material Holley Barrioso PA-C Work Phone: Start: 08-31-2023 Glucose quantitative blood xcpt reagent strip Interface Unspecifiedprovider Work Phone: Start: 08-31-2023 End: 08-31-2023 Comprehensive metabolic panel Holley Garner PA-C Work Phone: Start: 08-31-2023 EXTRA URINE SWANSON TUBE Holley singh PA-C Work Phone: Start: 08-31-2023 Urinalysis complete W Reflex Culture panel - Urine Holley Garner PA-C Work Phone: Start: 08-31-2023 Urine test visual color cmprsn meths Holley Garner PA-C Work Phone: Start: 08-31-2023 Urnls dip stick/tablet reagent auto microscopy Holley Garner PA-C Work Phone: Start: 08-14-2023 CBC W Auto Differential panel - Blood NICOLA GLEZ Start: 08-14-2023 Comprehensive metabolic 2000 panel - Serum or Plasma NICOLA GLEZ Start: 08-14-2023 AMB REFERRAL TO GASTROENTEROLOGY NICOLA AVINA Start: 08-12-[address] Nicola Glez Work Phone: Start: 08-12-2023 Investigation of transfusion reaction Dr. Nicola Glez Work Phone: Start: 07-17-2023 BILL ONLY-THYROGLOBULIN NICOLA GLEZ Start: 07-17-2023 Ferritin [Mass/volume] in Serum or Plasma NICOLA GLEZ Start: 07-17-2023 Hemoglobin A1c/Hemoglobin.total in Blood NICOLA GLEZ Start: 07-17-2023 IRON AND TIBC NICOLA GLEZ Start: 07-17-2023 THYROGLOBULIN AND ANTITHYROGLOBULIN NICOLA GLEZ Start: 07-17-2023 THYROID PEROXIDASE (TPO) ANTIBODY NICOLA GLEZ Start: 07-17-2023 THYROXINE, FREE NICOLA GLEZ Start: 07-17-2023 TSH WITH REFLEX TO FREE T4 IF ABNORMAL NICOLA GLEZ Start: 06-20-2023 DISCHARGE PATIENT DESMOND LIA Start: 06-20-2023 Glucose [Mass/volume] in Serum or Plasma DESMOND LAI Start: 06-20-2023 Glucose quantitative blood xcpt reagent strip Maicol Pollard MD Work Phone: Start: 06-20-2023 Glucose [Mass/volume] in Serum or Plasma DESMOND LAI Start: 06-20-2023 US GUIDED NEEDLE LIVER BIOPSY DESMOND LAI Start: 06-20-2023 SURGICAL PATHOLOGY EXAM DESMOND LAI Start: 06-20-2023 Glucose quantitative blood xcpt reagent strip Maicol Pollard MD Work Phone: Start: 06-20-2023 Biopsy liver needle percutaneous Porfirio Yapd TOOL DISPATCHER-RED CROSS WORKER Work Phone: Start: 06-20-2023 IP CONSULT TO NUTRITION SERVICES DESMOND Molina ART Start: 06-20-2023 Comprehensive metabolic 2000 panel - Serum or Plasma DESMOND LAI Start: 06-20-2023 Magnesium [Mass/volume] in Serum or Plasma DESMOND LAI Start: 06-20-2023 CBC panel - Blood by Automated count DESMOND LAI Start: 06-20-2023 Glucose [Mass/volume] in Serum or Plasma DESMOND LAI Start: 06-20-2023 End: 06-20-2023 Comprehensive metabolic panel Marjorie Wharton TOOL DISPATCHER-RED CROSS WORKER Work Phone: Start: 06-20-2023 Glucose [Mass/volume] in Serum or Plasma DESMOND LAI Start: 06-20-2023 Glucose quantitative blood xcpt reagent strip Maicol Pollard MD Work Phone: Start: 06-20-2023 Glucose [Mass/volume] in Serum or Plasma DESMOND LAI Start: 06-20-2023 Glucose quantitative blood xcpt reagent strip Maicol Pollard MD Work Phone: Start: 06-19-2023 Glucose [Mass/volume] in Serum or Plasma DESMOND LAI Start: 06-19-2023 Glucose quantitative blood xcpt reagent strip Maicol Pollard MD Work Phone: Start: 06-19-2023 Glucose [Mass/volume] in Serum or Plasma DESMOND LAI Start: 06-19-2023 ADMIT TO INPATIENT DESMOND LAI Start: 06-19-2023 PROTIME-INR DESMOND LAI Start: 06-19-2023 Glucose quantitative blood xcpt reagent strip Maicol Pollard MD Work Phone: Start: 06-19-2023 Prothrombin time Moe Clifford TOOL DISPATCHER-RED CROSS WORKER Work Phone: Start: 06-19-2023 CBC panel - Blood by Automated count DESMOND LAI Start: 06-19-2023 Comprehensive metabolic 2000 panel - Serum or Plasma DESMOND LAI Start: 06-19-2023 Magnesium [Mass/volume] in Serum or Plasma DESMOND LAI Start: 06-19-2023 NURSING COMMUNICATION DESMOND LAI Start: 06-19-2023 Glucose [Mass/volume] in Serum or Plasma DESMOND LAI Start: 06-19-2023 Esophagogastroduodenoscopy DESMOND LAI Start: 06-19-2023 SURGICAL PATHOLOGY EXAM DESMOND LAI Start: 06-19-2023 Comprehensive metabolic panel Marjorie Guan Wharton TOOL DISPATCHER-RED CROSS WORKER Work Phone: Start: 06-19-2023 End: 06-19-2023 Glucose quantitative blood xcpt reagent strip Maicol Pollard MD Work Phone: Start: 06-19-2023 Egd transoral biopsy single/multiple Porfirio Yapd TOOL DISPATCHER-RED CROSS WORKER Work Phone: Start: 06-19-2023 Glucose [Mass/volume] in Serum or Plasma DESMOND LAI Start: 06-19-2023 Glucose [Mass/volume] in Serum or Plasma DESMOND LAI Start: 06-19-2023 End: 06-19-2023 Glucose quantitative blood xcpt reagent strip Maicol Pollard MD Work Phone: Start: 06-19-2023 Glucose quantitative blood xcpt reagent strip Maicol Pollard MD Work Phone: Start: 06-19-2023 Glucose [Mass/volume] in Serum or Plasma DESMOND LAI Start: 06-19-2023 Glucose quantitative blood xcpt reagent strip Maicol Pollard MD Work Phone: Start: 06-19-2023 Glucose [Mass/volume] in Serum or Plasma DESMOND LAI Start: 06-18-2023 Glucose quantitative blood xcpt reagent strip Maicol Pollard MD Work Phone: Start: 06-18-2023 Glucose [Mass/volume] in Serum or Plasma DESMOND LAI Start: 06-18-2023 US GALLBLADDER DESMOND LAI Start: 06-18-2023 Glucose quantitative blood xcpt reagent strip Maicol Pollard MD Work Phone: Start: 06-18-2023 Glucose [Mass/volume] in Serum or Plasma DESMOND LAI Start: 06-18-2023 Us abdominal real time w/image limited Katie Garland TOOL DISPATCHER-RED CROSS WORKER Work Phone: Start: 06-18-2023 Glucose quantitative blood xcpt reagent strip Maicol Pollard MD Work Phone: Start: 06-18-2023 Glucose [Mass/volume] in Serum or Plasma DESMOND LAI Start: 06-18-2023 Glucose quantitative blood xcpt reagent strip Maicol Pollard MD Work Phone: Start: 06-18-2023 Glucose [Mass/volume] in Serum or Plasma DESMOND LAI Start: 06-18-2023 THYROID PEROXIDASE (TPO) ANTIBODY DESMOND LAI Start: 06-18-2023 Glucose quantitative blood xcpt reagent strip Maicol Pollard MD Work Phone: Start: 06-18-2023 CBC panel - Blood by Automated count DESMOND LAI Start: 06-18-2023 Comprehensive metabolic 2000 panel - Serum or Plasma DESMOND LAI Start: 06-18-2023 Magnesium [Mass/volume] in Serum or Plasma DESMOND LAI Start: 06-18-2023 THYROXINE, FREE DESMOND LAI Start: 06-18-2023 Microsomal antibodies each Reynold rees DO Work Phone: Start: 06-18-2023 Glucose [Mass/volume] in Serum or Plasma DESMOND LAI Start: 06-18-2023 End: 06-18-2023 Comprehensive metabolic panel Marjorie Wharton TOOL DISPATCHER-RED CROSS WORKER Work Phone: Start: 06-18-2023 Glucose [Mass/volume] in Serum or Plasma DESMOND LAI Start: 06-18-2023 Glucose quantitative blood xcpt reagent strip Maicol Pollard MD Work Phone: Start: 06-17-2023 Glucose [Mass/volume] in Serum or Plasma DESMOND LAI Start: 06-17-2023 Glucose quantitative blood xcpt reagent strip Maicol Pollard MD Work Phone: Start: 06-17-2023 Glucose [Mass/volume] in Serum or Plasma DESMOND LAI Start: 06-17-2023 Glucose quantitative blood xcpt reagent strip Maicol Pollard MD Work Phone: Start: 06-17-2023 Glucose [Mass/volume] in Serum or Plasma DESMOND LAI Start: 06-17-2023 Glucose quantitative blood xcpt reagent strip Stephanie Hernandez MD Work Phone: Start: 06-17-2023 Glucose [Mass/volume] in Serum or Plasma DESMOND LAI Start: 06-17-2023 Glucose quantitative blood xcpt reagent strip Stephanie Hernandez MD Work Phone: Start: 06-17-2023 Glucose [Mass/volume] in Serum or Plasma DESMOND LAI Start: 06-17-2023 Ammonia [Mass/volume] in Plasma DESMOND LAWRENCE RT Start: 06-17-2023 CBC panel - Blood by Automated count DESMOND LAI Start: 06-17-2023 Comprehensive metabolic 2000 panel - Serum or Plasma DESMOND LAI Start: 06-17-2023 Lipid panel DESMOND LAI Start: 06-17-2023 Magnesium [Mass/volume] in Serum or Plasma DESMOND LAI Start: 06-17-2023 Phosphate [Mass/volume] in Serum or Plasma DESMOND LAI Start: 06-17-2023 Thyrotropin [Units/volume] in Serum or Plasma DESMOND LAI Start: 06-17-2023 THYROXINE, FREE DESMOND LAI Start: 06-17-2023 End: 06-17-2023 Comprehensive metabolic panel Marjorie Wharton TOOL DISPATCHER-RED CROSS WORKER Work Phone: Start: 06-17-2023 Lipid panel Reynold Ruiz DO Work Phone: Start: 06-17-2023 Glucose [Mass/volume] in Serum or Plasma DESMOND LAI Start: 06-17-2023 IP CONSULT TO ENDOCRINOLOGY DESMOND LAI Start: 06-17-2023 FULL CODE DESMOND LAI Start: 06-17-2023 INITIATE OBSERVATION STATUS DESMOND LAI Start: 06-17-2023 IP CONSULT TO GASTROENTEROLOGY DESMOND Guerin Start: 06-17-2023 MEASURE HEIGHT DESMOND LAI Start: 06-17-2023 Glucose quantitative blood xcpt reagent strip Stephanie Hernandez MD Work Phone: Start: 06-17-2023 Lipid 1996 panel - Serum or Plasma Stephanie Hernandez MD Work Phone: Start: 06-16-2023 ALBUMIN, URINE RANDOM DESMOND LAI Start: 06-16-2023 Creatinine other source Reynold Ruiz Anastasia Anupama Work Phone: Start: 06-12-2023 ALPHA-1 ANTITRYPSIN PHENOTYPE NICOLA PATRICIA ERIN Start: 06-12-2023 PAULETTE-WITH REFLEX TO TIANA NICOLA OBERHAUSER Start: 06-12-2023 ANTI-MITOCHONDRIAL ANTIBODY NICOLA OBERHA USER Start: 06-12-2023 ANTI-SMOOTH MUSCLE ANTIBODY NICOLA OBERHA USER Start: 06-12-2023 CERULOPLASMIN NICOLA OBERHAUSER Start: 06-12-2023 Ferritin [Mass/volume] in Serum or Plasma NICOLA PATRICIAHAUSCHIARA Start: 06-12-2023 HEPATITIS PANEL, ACUTE NICOLA OBERHAUSER Start: 06-02-2023 CELIAC PANEL (ARUP) NICOLA OBERHAUSER Start: 06-02-2023 DEAMIDATED GLIADIN ANTIBODY IGA NICOLA OB ERHAUSER Start: 06-02-2023 DEAMIDATED GLIADIN ANTIBODY IGG (ARUP) NICOLA OBERHAUSER Start: 06-02-2023 Hepatic function 2000 panel - Serum or Plasma NICOLA OBCHIARAHAUSER Start: 06-02-2023 TISSUE TRANSGLUTAMINASE, IGA NICOLA URIBE AUSER Start: 06-02-2023 TISSUE TRANSGLUTAMINASE, IGG (ARUP) NICOLA OBERHAUSER Start: 05-28-2023 PANCREATIC ELASTASE, FECAL NICOLA OBCHIARAHAU SER Start: 05-23-2023 Us abdominal real time w/image limited Titi Shaikh Pratikjose Work Phone: Start: 03-27-2023 CT of head without contrast Dr. Nicola armenta Work Phone: Start: 03-21-2023 US scan of gallbladder Dr. Nicola jennings Work Phone: Start: 03-14-2023 Ct abdomen & pelvis w/contrast material Juliane Harrington DO Work Phone: Start: 03-14-2023 EXTRA URINE SWANSON TUBE Juliane Harrington DO Work Phone: Start: 03-14-2023 Urinalysis complete W Reflex Culture panel - Urine Juliane Harrington DO Work Phone: Start: 03-14-2023 Urnls dip stick/tablet reagent auto microscopy Juliane Harrington DO Work Phone: Start: 03-14-2023 Comprehensive metabolic panel Juliane Harrington DO Work Phone: Start: 03-06-2022 Echocardiography Nicola Glez Work Phone: Start: 01-30-2022 Lipid 1996 panel - Serum or Plasma Grant SALDIVAR-C Work Phone: Start: 02-03-2021 End: 02-03-2021 EKG impression Alonzo Rosales Start: 01-22-2021 Radiologic exam chest 2 views Radha alston TOOL DISPATCHER.RED CROSS WORKER Work Phone: Start: 01-22-2021 Adult depression screening assessment Radha Campos TOOL DISPATCHER.RED CROSS WORKER Work Phone: Start: 02-29-2020 Blood count hemoglobin Skyla Kohli Work Phone: Start: 02-28-2020 Blood typing serologic abo Raquel Gutierres Work Phone: Start: 02-28-2020 Blood count complete automated Raquel olmedo Work Phone: Start: 02-28-2020 Fibrinogen activity Raquel Gutierres Work Phone: Start: 02-28-2020 PROTIME/INR & PTT Raquel Gutierres Work Phone: Start: 02-27-2020 nonstress test Nick Koch Work Phone: Start: 02-26-2020 nonstress test Nick Koch Work Phone: Start: 02-26-2020 Iadna-dna/rna gi pthgn multiplex probe tq 12- Codie Fink Work Phone: Start: 02-26-2020 Inf agent det nucleic acid clostridium amp probe Codie Fink Work Phone: Start: 02-26-2020 CT Abdomen and Pelvis W contrast IV Codie Fink Work Phone: Start: 02-26-2020 Us retroperitoneal real time w/image limited Codie Fink Work Phone: Start: 02-26-2020 COVID-19 Codie Fink Work Phone: Start: 02-25-2020 Blood count complete automated Jalen Liao Work Phone: Start: 02-25-2020 Blood typing serologic abo Brandy Liao Work Phone: Start: 02-25-2020 Comprehensive metabolic panel Brandy Liao Work Phone: Start: 02-25-2020 Fibrinogen activity Brandy Liao Work Phone: Start: 02-25-2020 PROTIME/INR & PTT Brandy Liao Work Phone: Start: 02-25-2020 Culture bacterial quanttative colony count urine Brandy Liao Work Phone: Start: 02-25-2020 Iadna multiple organisms direct probe tq Brandy Liao Work Phone: Start: 02-25-2020 MEDICATION ASSISTED TREATMENT PANEL Brandy Liao Work Phone: Start: 02-25-2020 Susceptiblty stdy antimicrbial micro/agar dilutj Brandy Liao Work Phone: Start: 02-25-2020 Urnls dip stick/tablet rgnt auto w/o microscopy Brandy Liao Work Phone: Start: 11-22-2019 ABO, EXTERNAL RESULT Historical Provider Start: 11-22-2019 HEPATITIS B, EXTERNAL RESULT Historical Provider Start: 11-22-2019 HEPATITIS C ANTIBODY, EXTERNAL RESULT Historical Provider Start: 11-22-2019 HIV, EXTERNAL RESULT Historical Provider Start: 11-22-2019 RH FACTOR, EXTERNAL RESULT Historical Pr ovider Start: 11-22-2019 RPR, EXTERNAL RESULT Historical Provider Start: 11-22-2019 RUBELLA TITER, EXTERNAL RESULT Historica l Provider Start: 03-10-2017 End: 03-10-2017 Urnls dip stick/tablet rgnt non-auto w/o micrscp Kasie S Keiko ANALYTICS SENIOR MANAGER Work Phone: Start: 03-10-2017 End: 03-11-2017 Us pelvic nonobstetric real-time image complete Kasie S Keiko ANALYTICS SENIOR MANAGER Work Phone: Start: 03-10-2017 End: 03-11-2017 Us transvaginal Kasie S Niangua ANALYTICS SENIOR MANAGER Work Phone: Start: 03-03-2017 End: 03-04-2017 *CBC with Differential Kasie S Niangua ANALYTICS SENIOR MANAGER Work Phone: Start: 03-03-2017 End: 03-11-2017 *CUUID - Urine MURIEL Culture - Identificatn Kasie Calhouns ANALYTICS SENIOR MANAGER Work Phone: Start: 03-03-2017 End: 03-04-2017 Thyrotropin [Units/volume] in Serum or Plasma Kasie S Niangua ANALYTICS SENIOR MANAGER Work Phone: Start: 03-03-2017 End: 03-03-2017 Urnls dip stick/tablet rgnt non-auto w/o micrscp Kasie S Keiko ANALYTICS SENIOR MANAGER Work Phone: Start: 02-11-2017 Screening for malignant neoplasm of cervix Screening pap Kasie Calhouns ANALYTICS SENIOR MANAGER Start: 02-11-2017 End: 02-11-2017 Urine test visual color cmprsn meths Kasie S Niangua ANALYTICS SENIOR MANAGER Work Phone: Start: 02-11-2017 End: 02-19-2017 Us pelvic nonobstetric real-time image complete Kasie S Keiko ANALYTICS SENIOR MANAGER Work Phone: Start: 02-11-2017 End: 02-19-2017 Us transvaginal Kasie Aden ANALYTICS SENIOR MANAGER Work Phone: section Nicola wan DO Work Phone: Operation on gallbladder Ann an Oberhauser DO Work Phone: Plan of Treatment Date Care Activity Detail Author Start: 11-06-2035 Shingles (RZV) Vaccine (1 of 2) Shingles (RZV) Vaccine (1 of 2) [facility] Start: 11-06-2035 Zoster Vaccines (1 of 2) Zoster Vaccines (1 of 2) [facility] Start: 03-01-2030 DTaP/Tdap/Td Vaccines (3 - Td or Tdap) DTaP/Tdap/Td Vaccines (3 - Td or Tdap) [facility] Start: 03-01-2030 Tetanus vaccination [facility] Start: 03-01-2030 Urine microalbumin profile DTaP,Tdap,Td Vaccine (3 - Td or Tdap) [facility] Start: 01-30-2027 Lipid panel Lipid Panel [facility] Start: 08-26-2026 Urine microalbumin profile DTAP,TDAP,TD (2 - Td or Tdap) [facility] Start: 05-21-2026 Diabetes mellitus screening Diabetes Screening [facility] Start: 05-17-2025 Depression screening using PHQ-9 (Patient Health Questionnaire 9) score Depression Screening/Follow-Up (PHQ-2/9) [facility] Start: 01-26-2025 End: 01-26-2025 Telemedicine consultation with patient 01/26/2025 9:30 AM EDT Telemedicine [facility] [address] [place] [address] Michelle Lambert, RED CROSS WORKER [address] [place] [address] [facility] Start: 01-19-2025 Urine screening for protein Diabetes: Urine Protein Screening [facility] Start: 01-19-2025 End: 01-19-2025 Patient encounter procedure 01/19/2025 10:20 AM EDT Office Visit [facility] [address] [place] [address] Carri Carrasco, PABalC [address] [place] [place] [address] [facility] Start: 01-17-2025 End: 01-17-2025 Patient encounter procedure 01/17/2025 11:00 AM EDT Office Visit [facility] [address] [place] [phone] Titi Quezada, [address] [facility] [address] [place] [id number] [facility] Start: 12-24-2024 Hepatitis B screening Urine Albumin:Creatinine Ratio [facility] Start: 12-24-2024 Hepatitis B surface antibody level LDL Cholesterol [facility] Start: 12-24-2024 Urine screening for protein Diabetes: Urine Protein Screening [facility] Start: 12-20-2024 Influenza vaccination [facility] Start: 12-19-2024 Diabetes mellitus screening Diabetes Screening [facility] Start: 11-03-2024 End: 11-03-2024 Telemedicine consultation with patient [facility] Start: 10-28-2024 In-vitro immunologic test [facility] Start: 10-26-2024 Diabetic foot examination Diabetic Foot Exam [facility] Start: 10-26-2024 eGFR Diabetes eGFR Diabetes [facility] Start: 10-26-2024 Urine screening for protein eGFR Diabetes [facility] Start: 08-20-2024 End: 08-20-2024 Patient encounter procedure 08/20/2024 11:20 AM EDT Office Visit [facility] [address] [facility] [address] [place] [phone] Rach Ballesteros, TOOL DISPATCHER-RED CROSS WORKER [id number] [address] Hebert Department [place] [id number] [facility] Start: 08-12-2024 End: 08-12-2024 Patient encounter procedure 08/12/2024 11:30 AM EDT Office Visit [facility] [address] [place] [address] Michelle Lambert CNP [address] [place] [address] [facility] Start: 07-20-2024 Hemoglobin A1c measurement A1C [facility] Start: 07-19-2024 [facility] Start: 07-14-2024 End: 07-14-2024 Patient encounter procedure 07/14/2024 2:30 PM EDT Office Visit [facility] [address] [place] [phone] Trinity Lerma APRN-CNP, DNP [address] [facility] Level, [address] [place] [address] [facility] Start: 06-29-2024 End: 06-29-2024 Patient encounter procedure 06/29/2024 3:00 PM EDT Office Visit [facility] [address] [place] [phone] Nicola Glez, [address] [facility] [place] [address] [facility] Start: 06-23-2024 End: 06-23-2024 Patient encounter procedure 06/23/2024 10:30 AM EST Office Visit [facility] [address] [place] [phone] Trinity Lerma, BENJAMIN, DNP [address] Level, [address] [place] [address] [facility] Start: 06-21-2024 End: 06-21-2024 Patient encounter procedure 06/21/2024 1:30 PM EST Appointment [address] [phone] [facility] Start: 06-17-2024 Hepatitis B surface antibody level LDL Cholesterol [facility] Start: 06-17-2024 Lipid panel Lipid Panel [facility] Start: 06-17-2024 End: 06-17-2024 Patient encounter procedure 06/17/2024 9:30 AM EST Appointment [address] [phone] [facility] Start: 06-16-2024 Urine screening for protein Diabetes: Urine Protein Screening [facility] Start: 06-15-2024 End: 06-15-2025 US Head and neck soft tissue US head neck soft tissue Imaging Routine Neck mass Expected: 06/15/2024, Expires: 06/15/2025 [facility] Service Area Work Phone: Comment on above: Expected: 06/15/2024, Expires: Start: 06-15-2024 End: 06-15-2024 Patient encounter procedure 06/15/2024 10:40 AM EST Office Visit [facility] [address] [place] [phone] Nicola Glez DO [address] [facility] [place] [address] [facility] Start: 06-07-2024 End: 06-07-2024 Clinical Support 06/07/2024 3:00 PM EST Clinical Support [facility] [address] [place] [address] [facility] Start: 05-29-2024 Depression Remission Assessment (PHQ9) Depression Remission Assessment (PHQ9) [facility] Start: 05-21-2024 Hemoglobin A1c measurement Diabetes: Hemoglobin A1C [facility] Start: 05-10-2024 End: 05-10-2025 CBC W Auto Differential panel - Blood CBC and Auto Differential Lab Routine Hepatic steatosis Metabolic dysfunction-associated steatotic liver disease (MASLD) Expected: 05/10/2024 (Approximate), Expires: 05/10/2025 [facility] Service Area Work Phone: Comment on above: Expected: 05/10/2024 (Approximate), Expi res: 05/10/2025 Start: 05-10-2024 End: 05-10-2025 Comprehensive metabolic 2000 panel - Serum or Plasma Comprehensive Metabolic Panel Lab Routine Hepatic steatosis Metabolic dysfunction-associated steatotic liver disease (MASLD) Expected: 05/10/2024 (Approximate), Expires: 05/10/2025 [facility] Work Phone: Comment on above: Expected: 05/10/2024 (Approximate), Expi res: 05/10/2025 Start: 05-10-2024 End: 05-10-2025 Gamma glutamyl transferase [Enzymatic activity/volume] in Serum or Plasma Gamma-Glutamyl Transferase Lab Routine Hepatic steatosis Metabolic dysfunction-associated steatotic liver disease (MASLD) Expected: 05/10/2024 (Approximate), Expires: 05/10/2025 [facility] Work Phone: Comment on above: Expected: 05/10/2024 (Approximate), Expi res: 05/10/2025 Start: 05-10-2024 End: 05-10-2025 Liver Elastography (Fibroscan) Liver Elastography (Fibroscan) GI Routine Hepatic steatosis Metabolic dysfunction-associated steatotic liver disease (MASLD) Expected: 05/10/2024, Expires: 05/10/2025 [facility] Work Phone: Comment on above: Expected: 05/10/2024, Expires: Start: 05-10-2024 End: 05-10-2024 Patient encounter procedure 05/10/2024 10:00 AM EST Office Visit [facility] [address] [place] [address] Rach Ballesteros, TOOL DISPATCHER-RED CROSS WORKER [address] [address] [place] [address] [facility] Start: 04-29-2024 End: 04-29-2024 Patient encounter procedure 04/29/2024 12:30 PM EST Office Visit [facility] [address] [place] [phone] Michelle Lambert, RED CROSS WORKER [address] [place] [address] [facility] Start: 04-21-2024 Hemoglobin A1c measurement Diabetes: Hemoglobin A1C [facility] Start: 04-02-2024 Patient referral [facility] Work Phone: Start: 03-25-2024 Hemoglobin A1c measurement [facility] Start: 03-19-2024 Depression Remission Assessment (PHQ9) Depression Remission Assessment (PHQ9) [facility] Start: 03-19-2024 End: 03-19-2024 Patient encounter procedure 03/19/2024 10:30 AM EST Office Visit [facility] [address] [place] [phone] Michelle Lambert, RED CROSS WORKER [address] [place] [address] [facility] Start: 03-16-2024 End: 03-16-2024 Patient encounter procedure 03/16/2024 10:40 AM EST Office Visit [facility] [address] [place] [address] Nicola Glez DO [address] [facility] [place] [address] [facility] Start: 03-13-2024 Hemoglobin A1c measurement A1C [facility] Start: 01-20-2024 End: 01-20-2024 ambulatory 01/20/2024 4:45 PM EDT Results Only [facility] [address] [place] [address] [facility] Start: 01-20-2024 End: 04-20-2024 Comprehensive metabolic 2000 panel - Serum or Plasma COMPREHENSIVE METABOLIC PANEL Lab Routine Controlled type 2 diabetes mellitus without complication, without long-term current use of insulin (HCC) Expected: 01/20/2024, Expires: 04/20/2024 [facility] Work Phone: Comment on above: Expected: 01/20/2024, Expires: Start: 01-20-2024 End: 04-20-2024 Hemoglobin A1c in Blood HEMOGLOBIN A1C Lab Routine Controlled type 2 diabetes mellitus without complication, without long-term current use of insulin (HCC) Expected: 01/20/2024, Expires: 04/20/2024 [facility] Comment on above: Expected: 01/20/2024, Expires: Start: 01-20-2024 End: 04-20-2024 LIPID PANEL, NONFASTING LIPID PANEL, NONFASTING Lab Routine Controlled type 2 diabetes mellitus without complication, without long-term current use of insulin (HCC) Expected: 01/20/2024, Expires: 04/20/2024 [facility] Comment on above: Expected: 01/20/2024, Expires: Start: 01-20-2024 End: 04-20-2024 Microalbumin/Creatinine [Mass Ratio] in Urine ALBUMIN/CREATININE RATIO, URINE Lab Routine Controlled type 2 diabetes mellitus without complication, without long-term current use of insulin (HCC) Expected: 01/20/2024, Expires: 04/20/2024 [facility] Comment on above: Expected: 01/20/2024, Expires: Start: 01-17-2024 Hemoglobin A1c measurement HbA1C [facility] Start: 01-15-2024 End: 01-15-2024 Patient encounter procedure 01/15/2024 9:00 AM EDT Office Visit [facility] [address] [place] [phone] Titi Quezada DO [address] [facility] [address] [place] [address] [facility] Start: 01-01-2024 End: 01-01-2024 ambulatory 01/01/2024 9:15 AM EDT Treatment [facility] [address] [place] [address] Jacques Santamaria, GRINDER OPERATOR TOOL [address] [facility] [place] [address] [facility] Start: 12-30-2023 End: 12-30-2023 Patient encounter procedure 12/30/2023 3:00 PM EDT Office Visit [facility] [address] [place] [phone] Nicola Glez DO [address] [facility] [place] [address] [facility] Start: 12-23-2023 End: 12-23-2023 ambulatory 12/23/2023 4:45 PM EDT Results Only Soraida [place] [facility] Laboratory [address] [place] [address] [facility] Start: 12-21-2023 End: 03-21-2024 ALBUMIN/CREAT RATIO RND UR ALBUMIN/CREAT RATIO RND UR Lab Routine Controlled type 2 diabetes mellitus without complication, without long-term current use of insulin (HCC) Expected: 12/21/2023, Expires: 03/21/2024 [facility] Work Phone: Comment on above: Expected: 12/21/2023, Expires: Start: 12-21-2023 End: 03-21-2024 Comprehensive metabolic 2000 panel - Serum or Plasma COMP METABOLIC PANEL Lab Routine Controlled type 2 diabetes mellitus without complication, without long-term current use of insulin (HCC) Expected: 12/21/2023, Expires: 03/21/2024 [facility] Work Phone: Comment on above: Expected: 12/21/2023, Expires: Start: 12-21-2023 COVID-19 Vaccine () COVID-19 Vaccine () [facility] Start: 12-21-2023 COVID-19 Vaccine () COVID-19 Vaccine () [facility] Start: 12-21-2023 Covid-19 Vaccine () Covid-19 Vaccine () [facility] Start: 12-21-2023 End: 03-21-2024 Hemoglobin A1c in Blood HGB A1C Lab Routine Controlled type 2 diabetes mellitus without complication, without long-term current use of insulin (HCC) Expected: 12/21/2023, Expires: 03/21/2024 [facility] Work Phone: Comment on above: Expected: 12/21/2023, Expires: 4 Start: 12-21-[address] [facility] Start: 12-21-2023 End: 03-21-2024 LIPID PANEL, NONFASTING LIPID PANEL, NONFASTING Lab Routine Controlled type 2 diabetes mellitus without complication, without long-term current use of insulin (HCC) Expected: 12/21/2023, Expires: 03/21/2024 [facility] Work Phone: Comment on above: Expected: 12/21/2023, Expires: Start: 12-16-2023 End: 12-16-2023 Patient encounter procedure 12/16/2023 2:45 PM EDT Office Visit [facility] [address] [place] [phone] Michelle Lambert, RED CROSS WORKER [address] [place] [address] [facility] Start: 12-11-2023 End: 12-10-2024 Hemoglobin A1c/Hemoglobin.total in Blood Hemoglobin A1C Lab Routine New onset type 2 diabetes mellitus (Multi) Expected: 12/11/2023 (Approximate), Expires: 12/10/2024 [facility] Service Area Work Phone: Comment on above: Expected: 12/11/2023 (Approximate), Expi res: 12/10/2024 Start: 12-10-2023 End: 12-10-2023 Telemedicine consultation with patient 12/10/2023 4:30 PM EDT Telemedicine [facility] [address] [place] [address] [facility] Start: 12-06-2023 Hemoglobin A1c measurement [facility] Start: 11-13-2023 End: 11-13-2023 Telemedicine consultation with patient 11/13/2023 4:30 PM EDT Telemedicine [facility] [address] [place] [phone] [facility] Start: 11-13-2023 End: 11-13-2023 Patient encounter procedure 11/13/2023 3:00 PM EDT Office Visit [facility] [address] [facility] [address] [place] [phone] Rach Ballesteros, TOOL DISPATCHER-RED CROSS WORKER [address] Department of [place] [address] [facility] Start: 11-10-2023 End: 11-10-2023 Telemedicine consultation with patient 11/10/2023 4:30 PM EDT Telemedicine [facility] [address] [place] [phone] [facility] Start: 11-04-2023 End: 11-04-2023 Telemedicine consultation with patient 11/04/2023 4:00 PM EDT Telemedicine [facility] [address] [place] [address] [facility] Start: 11-04-2023 End: 11-04-2023 Patient encounter procedure 11/04/2023 12:30 PM EDT Office Visit [facility] [address] [place] [phone] Michelle Lambert, RED CROSS WORKER [address] [place] [address] [facility] Start: 10-30-2023 End: 10-30-2023 Patient encounter procedure 10/30/2023 11:00 AM EDT Office Visit [facility] [address] [place] [address] [place] [phone] Rustam Hoskins, CORINA [address] [place] [address] [facility] Start: 10-28-2023 End: 10-28-2023 Patient encounter procedure 10/28/2023 2:45 PM EDT Office Visit [facility] [address] [place] [phone] Michelle Lambert, RED CROSS WORKER [address] [place] [address] [facility] Start: 10-27-2023 End: 10-27-2023 Patient encounter procedure 10/27/2023 3:45 PM EDT Office Visit [facility] Podiatry [address] [place] [address] Natalya Solorzano, RICO [address] [place] [address] [facility] Start: 10-17-2023 Hemoglobin A1c measurement [facility] Start: 10-08-2023 End: 10-08-2023 Patient encounter procedure 10/08/2023 9:15 AM EDT Office Visit Endocrinology [address] [place] [address] Nicolle Atreaga APRN.[facility] [address] [place] [address] 3 MTH F/U Endocrinology Comment on above: 3 MTH F/U Start: 09-25-2023 End: 06-24-2024 Hemoglobin A1c/Hemoglobin.total in Blood Hemoglobin A1C Lab Routine Type 2 diabetes mellitus without complication, without long-term current use of insulin ([facility] Expected: 09/25/2023 (Approximate), Expires: 06/24/2024 [facility] Work Phone: Comment on above: Expected: 09/25/2023 (Approximate), Expi res: 06/24/2024 Start: 09-25-2023 End: 09-25-2023 Patient encounter procedure 09/25/2023 9:20 AM EDT Office Visit [facility] [address] [place] [phone] Nicola Glez DO [address] [facility] [place] [address] [facility] Start: 09-22-2023 End: 09-22-2023 Nutrition therapy 09/22/2023 3:15 PM EDT Education [facility] [address] [place] [address] Constance Rosas, RD [address] [place] [address] Controlled type 2 diabetes mellitus without complication, without long-term curr... Nutrition Therapy Comment on above: Controlled type 2 diabetes mellitus with out complication, without long-term curr... Start: 09-14-2023 Hemoglobin A1c measurement Diabetes: Hemoglobin A1C [facility] Start: 08-22-2023 End: 08-22-2023 Patient encounter procedure 08/22/2023 10:00 AM EDT Office Visit [place] [address] [place] [phone] [place] [address] [address] Department of Dermatology [place], [place] [phone] [facility] Start: 08-14-2023 End: 08-13-2024 CBC W Auto Differential panel - Blood [facility] Service Area Work Phone: Comment on above: Expected: 08/14/2023 (Approximate), Expi res: 08/13/2024 Start: 08-14-2023 End: 08-13-2024 Comprehensive metabolic 2000 panel - Serum or Plasma [facility] Work Phone: Comment on above: Expected: 08/14/2023 (Approximate), Expi res: 08/13/2024 Start: 08-14-2023 End: 08-14-2023 Patient encounter procedure 08/14/2023 9:30 AM EDT Office Visit [facility] [address] [phone] Titi Quezada, [address] [facility] [address] [id number] [facility] Start: 08-13-2023 End: 08-13-2023 Patient encounter procedure 08/13/2023 3:15 PM EDT Office Visit Endocrinology [address] [place] [address] Nicolle Arteaga, TOOL DISPATCHER.RED CROSS WORKER [address] [place] [address] Blood sugars elevated Endocrinology Comment on above: Blood sugars elevated Start: 08-07-2023 End: 08-07-2023 Patient encounter procedure [facility] Start: 07-28-2023 End: 07-28-2023 Patient encounter procedure 07/28/2023 9:15 AM EDT Office Visit [facility] [address] [place] [address] Michelle Lambert, RED CROSS WORKER [address] [place] [phone] [facility] Start: 07-17-2023 End: 07-17-2023 Patient encounter procedure 07/17/2023 10:45 AM EDT Office Visit [facility] [address] [place] [phone] Titi Quezada, [address] [facility], [address] [place] [address] [facility] Start: 07-02-2023 End: 07-02-2023 Nutrition therapy 07/02/2023 2:45 PM EDT Nutrition [facility] [address] [place] [phone] Viktoria Estrada RDN, LD [facility] Start: 07-02-2023 End: 10-01-2023 Glutamate decarboxylase 65 Ab [Units/volume] in Serum [facility] Work Phone: Comment on above: Expected: 07/02/2023, Expires: 4 Start: 07-02-2023 End: 10-01-2023 Pancreatic islet cell Ab [Titer] in Serum [facility] Work Phone: Comment on above: Expected: 07/02/2023, Expires: 4 Start: 07-01-2023 End: 07-01-2023 Clinical Support 07/01/2023 10:00 AM EDT Clinical Support [facility] [address] [place] [address] [facility] Start: 06-25-2023 End: 06-24-2024 Ferritin [Mass/volume] in Serum or Plasma Ferritin Lab Routine Pica Expected: 06/25/2023 (Approximate), Expires: 06/24/2024 [facility] Work Phone: Comment on above: Expected: 06/25/2023 (Approximate), Expi res: 06/24/2024 Start: 06-25-2023 End: 06-24-2024 Hemoglobin A1c/Hemoglobin.total in Blood Hemoglobin A1C Lab Routine Type 2 diabetes mellitus without complication, without long-term current use of insulin ([facility]) Expected: 06/25/2023 (Approximate), Expires: 06/24/2024 [facility] Work Phone: Comment on above: Expected: 06/25/2023 (Approximate), Expi res: 06/24/2024 Start: 06-25-2023 End: 06-24-2024 Iron and Iron binding capacity panel - Serum or Plasma Iron and TIBC Lab Routine Pica Expected: 06/25/2023 (Approximate), Expires: 06/24/2024 [facility] Work Phone: Comment on above: Expected: 06/25/2023 (Approximate), Expi res: 06/24/2024 Start: 06-25-2023 End: 06-24-2024 Thyroglobulin and Antithyroglobulin Thyroglobulin and Antithyroglobulin Lab Routine Thyroid enlargement Expected: 06/25/2023 (Approximate), Expires: 06/24/2024 [facility] Work Phone: Comment on above: Expected: 06/25/2023 (Approximate), Expi res: 06/24/2024 Start: 06-25-2023 End: 06-24-2024 Thyroperoxidase Ab [Units/volume] in Serum or Plasma Thyroid Peroxidase (TPO) Antibody Lab Routine Thyroid enlargement Expected: 06/25/2023 (Approximate), Expires: 06/24/2024 [facility] Work Phone: Comment on above: Expected: 06/25/2023 (Approximate), Expi res: 06/24/2024 Start: 06-25-2023 End: 06-24-2024 Thyroxine (T4) free [Mass/volume] in Serum or Plasma T4, free Lab Routine Thyroid enlargement Expected: 06/25/2023 (Approximate), Expires: 06/24/2024 [facility] Work Phone: Comment on above: Expected: 06/25/2023 (Approximate), Expi res: 06/24/2024 Start: 06-25-2023 End: 06-24-2024 TSH with reflex to Free T4 if abnormal TSH with reflex to Free T4 if abnormal Lab Routine Thyroid enlargement Expected: 06/25/2023 (Approximate), Expires: 06/24/2024 [facility] Work Phone: Comment on above: Expected: 06/25/2023 (Approximate), Expi res: 06/24/2024 Start: 06-25-2023 End: 06-24-2024 US Thyroid gland US thyroid Imaging Routine Thyroid enlargement Expected: 06/25/2023, Expires: 06/24/2024 [facility] Service Area Work Phone: Comment on above: Expected: 06/25/2023, Expires: Start: 06-19-2023 End: 06-19-2023 Patient encounter procedure 06/19/2023 10:20 AM EST Office Visit [facility] [address] [place] [phone] Nicola Glez DO [address] [facility] [place] [address] [facility] Start: 06-18-2023 End: 06-18-2023 Patient encounter procedure 06/18/2023 11:00 AM EST Office Visit [facility] [address] [place] [phone] Michelle Lambert, RED CROSS WORKER [address] [place] [address] [facility] Start: 06-12-2023 End: 06-12-2024 Acute hepatitis 2000 panel - Serum [facility] Work Phone: Comment on above: Expected: 06/12/2023 (Approximate), Expi res: 06/12/2024 Start: 06-12-2023 End: 06-12-2024 Alpha-1 Antitrypsin Phenotype [facility] Service Area Work Phone: Comment on above: Expected: 06/12/2023 (Approximate), Expi res: 06/12/2024 Start: 06-12-2023 End: 06-12-2024 Ceruloplasmin [Mass/volume] in Serum or Plasma [facility] Work Phone: Comment on above: Expected: 06/12/2023 (Approximate), Expi res: 06/12/2024 Start: 06-12-2023 End: 06-12-2024 Ferritin [Mass/volume] in Serum or Plasma [facility] Work Phone: Comment on above: Expected: 06/12/2023 (Approximate), Expi res: 06/12/2024 Start: 06-12-2023 End: 06-12-2024 Mitochondria Ab [Presence] in Serum by Immunofluorescence [facility] Work Phone: Comment on above: Expected: 06/12/2023 (Approximate), Expi res: 06/12/2024 Start: 06-12-2023 End: 06-12-2024 Nuclear Ab [Presence] in Serum by Hep2 substrate [facility] Work Phone: Comment on above: Expected: 06/12/2023 (Approximate), Expi res: 06/12/2024 Start: 06-12-2023 End: 06-12-2024 Smooth muscle Ab [Presence] in Serum by Immunofluorescence [facility] Work Phone: Comment on above: Expected: 06/12/2023 (Approximate), Expi res: 06/12/2024 Start: 06-12-2023 End: 06-12-2023 ambulatory 06/12/2023 9:30 AM EST Lab [address] [phone] Transaminitis [facility] Comment on above: Transaminitis Start: 06-12-2023 End: 06-12-2023 Patient encounter procedure 06/12/2023 8:45 AM EST Office Visit [facility] [address] [facility] [address] [place] [phone] Titi Quezada DO [address] [facility], [address] [place] [address] [facility] Start: 05-23-2023 End: 05-23-2023 Patient encounter procedure 05/23/2023 8:15 AM EST Appointment [place] [address] [place] [phone] [facility] Start: 05-22-2023 End: 05-22-2024 Celiac Panel Celiac Panel Lab Routine Diarrhea due to malabsorption Expected: 05/22/2023 (Approximate), Expires: 05/22/2024 [facility] Service Area Work Phone: Comment on above: Expected: 05/22/2023 (Approximate), Expi res: 05/22/2024 Start: 05-22-2023 End: 05-22-2024 Elastase.pancreatic [Mass/mass] in Stool Pancreatic Elastase, Fecal Lab Routine Diarrhea due to malabsorption Expected: 05/22/2023 (Approximate), Expires: 05/22/2024 [facility] Work Phone: Comment on above: Expected: 05/22/2023 (Approximate), Expi res: 05/22/2024 Start: 05-22-2023 End: 05-22-2024 Hepatic function 2000 panel - Serum or Plasma Hepatic function panel Lab Routine Diarrhea due to malabsorption Transaminitis Expected: 05/22/2023 (Approximate), Expires: 05/22/2024 [facility] Work Phone: Comment on above: Expected: 05/22/2023 (Approximate), Expi res: 05/22/2024 Start: 05-22-2023 End: 05-22-2024 US Liver limited US abdomen limited liver Imaging Routine Diarrhea due to malabsorption Transaminitis Expected: 05/22/2023 (Approximate), Expires: 05/22/2024 [facility] Work Phone: Comment on above: Expected: 05/22/2023 (Approximate), Expi res: 05/22/2024 Start: 05-19-2023 End: 05-19-2023 Patient encounter procedure 05/19/2023 11:00 AM EST Office Visit [facility] [address] [place] [phone] Harinder Gallagher MD [address] [place] [address] Michelle Lambert, CORINA [address] [place] [address] [facility] Start: 04-21-2023 Behavioral Health Screening Behavioral Health Screening [facility] Start: 04-21-2023 Depression Assessment Depression Assessment [facility] Start: 03-27-2023 [facility] Start: 03-22-2023 [facility] Start: 02-12-2023 Procedure [facility] Start: 12-20-2022 COVID-19 Vaccine ( season) COVID-19 Vaccine ( season) [facility] Start: 12-20-2022 Influenza vaccination [facility] Start: 12-19-2022 Hemoglobin A1c measurement Diabetes: Hemoglobin A1C [facility] Start: 10-21-2022 End: 10-21-2022 Patient encounter procedure 10/21/2022 11:30 AM EDT Procedure Visit [facility] [address] [place], [place] [phone] Francesca Vásquez DDS [address] [place] [address] [facility] Start: 07-24-2022 FUV, Provider: Aris Moreno, Status: Pen, Time: 3:15 PM FUV, Provider: Aris Moreno, Status: Alex, Time: 3:15 PM KI-[id number]-YbuogqCarly Yoon Work Phone: Start: 07-23-2022 End: 07-23-2022 Patient encounter procedure 07/23/2022 Procedure Visit Dentistry Francesca Vásquez, REGINAS [address] [place] [address] [facility] Start: 07-12-2022 End: 07-12-2022 Patient encounter procedure 07/12/2022 Office Visit Neurology MayoKiersten MD [address] [place] [address] [address] [facility] Start: 05-21-2022 End: 05-21-2022 Patient encounter procedure 05/21/2022 Procedure Visit Dentistry ClarissarogeFrancesca, REGINAS [address] [place] [address] [facility] Start: 05-07-2022 End: 05-07-2022 Patient encounter procedure 05/07/2022 Procedure Visit Dentistry Francesca Vásquez, REGINAS [address] [place] [address] [facility] Start: 04-23-2022 End: 04-23-2022 Patient encounter procedure 04/23/2022 Procedure Visit Dentistry Francesca Vásquez, REGINAS [address] [place] [address] [facility] Start: 04-09-2022 End: 04-09-2022 Patient encounter procedure 04/09/2022 Procedure Visit Dentistry ClarissarogeFrancesca, REGINAS [address] [place] [address] [facility] Start: 03-18-2022 End: 03-18-2022 ambulatory 03/18/2022 Lab Draw Lab Kiersten Mayo MD [address] [address] [facility] Lab Draw Site Comment on above: Arrived Start: 03-18-2022 End: 03-18-2022 Patient encounter procedure 03/18/2022 Office Visit Neurology Nicola Glez, DO [address] [place] [address] Kiersten Mayo MD [facility] [address] [address] [facility] Start: 03-06-2022 ECHO, Provider: [facility] ECHO 1,[email or web address], Status: Pen, Time: 2:00 PM ECHO, Provider: [facility] ECHO 1,SMCECHO1, Status: Pen, Time: 2:00 PM [facility] Work Phone: Start: 02-25-2022 End: 02-25-2022 Patient encounter procedure 02/25/2022 Procedure Visit Dentistry Derrek Tineo, DMD [address] [place] [address] [facility] Start: 02-07-2022 ECHO, Provider: [facility] ECHO 1,[email or web address], Status: Pen, Time: 1:00 PM ECHO, Provider: [facility] ECHO 1,SMCECHO1, Status: Pen, Time: 1:00 PM [id number]-KqnblnCarly Yoon Work Phone: Start: 02-06-2022 MSO, Provider: Nicola Glez, Status: Pen, Time: 2:40 PM MSO, Provider: Nicola Glez, Status: Pen, Time: 2:40 PM [facility] Work Phone: Start: 01-24-2022 Liquid based cervical cytology screening [facility] Work Phone: Start: 01-23-2022 NPV, Provider: Aris Moreno, Status: Pen, Time: 3:15 PM NPV, Provider: Aris Moreno, Status: Pen, Time: 3:15 PM [facility] Work Phone: Start: 01-22-2022 Adult depression screening assessment DEPRESSION SCREENING [facility] Start: 01-22-2022 Annual PCP Team Chronic Disease Visit Annual PCP Team Chronic Disease Visit [facility] Start: 01-19-2022 Influenza vaccination Influenza Vaccine (#1) [facility] Start: 12-20-[address] [facility] Start: 01-15-2021 COVID-19 VACCINE (3 - Booster for Pfizer series) COVID-19 VACCINE (3 - Booster for Pfizer series) [facility] Start: 10-10-2020 COVID-19 Vaccine (3 - Booster for Pfizer series) COVID-19 Vaccine (3 - Booster for Pfizer series) [facility] Start: 10-10-2020 COVID-19 Vaccine (3 - Pfizer series) COVID-19 Vaccine (3 - Pfizer series) [facility] Start: 10-02-2020 PAP TEST[address] PAP TESTING [facility] Start: 10-02-2020 Screening for malignant neoplasm of cervix Pap Testing [facility] Start: 12-21-2019 Influenza vaccination Flu vaccine (#1) [place], [place] Start: 10-02-2018 Screening for malignant neoplasm of cervix Cervical Cancer Screening [facility] Start: 03-10-2017 End: 03-10-2017 *CUUID - Urine MURIEL Culture - Identificatn *CUUID - Urine MURIEL Culture - Identificatn [facility] Start: 03-10-2017 End: 03-10-2017 *GC/Chlamydia *GC/Chlamydia [facility] Start: 03-10-2017 End: 03-10-2017 Bacteria genital culture *CUV - Culture, VAG/CX Comprehensive [facility] Start: 03-10-2017 End: 03-11-2017 Us pelvic nonobstetric real-time image complete US Pelvis [facility] Start: 03-10-2017 End: 03-11-2017 Us transvaginal US Transvaginal [facility] Start: 03-10-2017 End: 03-10-2017 Appointment Appointment [facility] Start: 03-03-2017 End: 03-04-2017 *CBC with Differential *CBC with Differential [facility] Start: 03-03-2017 End: 03-11-2017 *CUUID - Urine MURIEL Culture - Identificatn *CUUID - Urine MURIEL Culture - Identificatn [facility] Start: 03-03-2017 End: 03-04-2017 Thyroid stimulating hormone (TSH) *TSH [facility] Start: 03-03-2017 End: 03-03-2017 Appointment Appointment [facility] Start: 02-11-2017 End: 02-19-2017 Us pelvic nonobstetric real-time image complete US Pelvis [facility] Start: 02-11-2017 End: 02-19-2017 Us transvaginal US Transvaginal [facility] Start: 02-11-2017 End: 02-11-2017 Appointment Appointment [facility] Start: 11-06-2015 HPV TESTING HPV TESTING [facility] Start: 11-06-2015 Screening for malignant neoplasm of cervix [facility] Start: 10-30-2015 End: 10-30-2015 Dup-scan xtr veins complete bilateral study Venous Doppler LE Right [facility] Start: 10-30-2015 End: 10-30-2015 Follow Up Appt 3 months Follow Up Appt 3 months [facility] Start: 2012 HPV Vaccines (1 - 3-dose standard series) HPV Vaccines (1 - 3-dose standard series) [facility] Start: 2006 Screening for malignant neoplasm of cervix [facility] Start: 2004 Hepatitis A Vaccines (1 of 2 - Risk 2-dose series) Hepatitis A Vaccines (1 of 2 - Risk 2-dose series) [facility] Start: 2004 Hepatitis B Vaccine (1 of 3 - 19+ 3-dose series) Hepatitis B Vaccine (1 of 3 - 19+ 3-dose series) [facility] Start: 2004 Hepatitis B Vaccines (1 of 3 - 19+ 3-dose series) Hepatitis B Vaccines (1 of 3 - 19+ 3-dose series) [facility] Start: 2004 Pneumococcal Vaccine: Ped or At-Risk (1 of 2 - PCV) Pneumococcal Vaccine: Ped or At-Risk (1 of 2 - PCV) [facility] Start: 2004 Pneumococcal Vaccine: Pediatrics and At-Risk Adult Patients (1 of 2 - PCV) Pneumococcal Vaccine: Pediatrics and At-Risk Adult Patients (1 of 2 - PCV) [facility] Start: 11-06-2003 Anxiety Screening Anxiety Screening [facility] Start: 11-06-2003 Depression Screening Depression Screening [facility] Start: 11-06-2003 HEPATITIS C SCREENING HEPATITIS C SCREENING [facility] Start: 11-06-2003 Hepatitis C screening [facility] Start: 2000 HIV screening HIV Screening [facility] Start: 1998 Varicella vaccination Varicella Vaccines (1 of 2 - 13+ 2-dose series) [facility] Start: 1997 Depression screening using PHQ-9 (Patient Health Questionnaire 9) score Depression Screening (PHQ-2/9) [facility] Start: 11-06-1995 Diabetic foot examination [facility] Start: 11-06-1995 Glaucoma screening [facility] Start: 11-06-1995 Hepatitis B screening Urine Albumin:Creatinine Ratio [facility] Start: 11-06-1995 Urine screening for protein [facility] Start: 11-06-1991 Pneumococcal vaccination Pneumococcal Vaccine (1 of 2 - PCV) [facility] Start: 11-06-1991 Pneumococcal Vaccine: Ped or At-Risk (1 of 2 - PCV) Pneumococcal Vaccine: Ped or At-Risk (1 of 2 - PCV) [facility] Start: 11-06-1991 Pneumococcal Vaccine: Pediatrics (0 to 5 Years) and At-Risk Patients (6 to 64 Years) (1 - PCV) Pneumococcal Vaccine: Pediatrics (0 to 5 Years) and At-Risk Patients (6 to 64 Years) (1 - PCV) [facility] Start: 11-06-1991 Pneumococcal Vaccine: Pediatrics (0 to 5 Years) and At-Risk Patients (6 to 64 Years) (1 of 2 - PCV) Pneumococcal Vaccine: Pediatrics (0 to 5 Years) and At-Risk Patients (6 to 64 Years) (1 of 2 - PCV) [facility] Start: 1990 COVID-19 Vaccine (#1) COVID-19 Vaccine (#1) [facility] Start: 1988 History and physical examination, annual for health maintenance Wellness Visit [facility] Start: 1986 MMR Vaccines (1 of 1 - Standard series) MMR Vaccines (1 of 1 - Standard series) [facility] Start: 1986 Varicella vaccination Varicella Vaccines (1 of 2 - 2-dose childhood series) [facility] Start: 05-08-1986 COVID-19 Vaccine (#1) COVID-19 Vaccine (#1) [facility] Start: 1985 Hepatitis B Vaccines (1 of 3 - 3-dose series) Hepatitis B Vaccines (1 of 3 - 3-dose series) [facility] Start: 1985 HIV screening HIV Screening [facility] Start: 1985 Screening for malignant neoplasm of breast Mammography shared decision making (35 through 39 years) [facility] Start: 1985 Screening for malignant neoplasm of cervix Pap Smear [facility] Start: 1985 Tetanus vaccination Tetanus: Every 10yrs [facility] Start: 1985 Yearly Adult Physical Yearly Adult Physical [facility] End: 05-19-2024 B12/Folate B12/Folate 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 1 Occurrences starting 05/19/2023 until 05/19/2024 [facility] Work Phone: Comment on above: 1 Occurrences starting 05/19/2023 until 05/19/2024 End: 08-12-2025 B12/Folate B12/Folate 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 1 Occurrences starting 08/12/2024 until 08/12/2025 [facility] Comment on above: 1 Occurrences starting 08/12/2024 until 08/12/2025 CBC panel - Blood by Automated count CBC Lab Routine Morning draw (Lab) until discontinued starting 06/17/2023, 4 completed [facility] Work Phone: Comment on above: Morning draw (Lab) until discontinued st arting 06/17/2023, 4 completed End: 01-23-2022 Chronic hepatitis differentiation between hepatitis B and C virus panel - Serum or Plasma HEP REMOTE PANEL BL Lab Routine Elevated liver enzymes 1 Occurrences starting 01/23/2021 until 01/23/2022 [facility] Work Phone: Comment on above: 1 Occurrences starting 01/23/2021 until 01/23/2022 End: 03-19-2023 Cobalamin (Vitamin B12) [Mass/volume] in Serum or Plasma Vitamin B12 Lab Routine Syncope, unspecified syncope type 1 Occurrences starting 03/18/2022 until 03/19/2023 [facility] Comment on above: 1 Occurrences starting 03/18/2022 until 03/19/2023 Cobalamin (Vitamin B 12) [Mass/volume] in Serum or Plasma Vitamin B12 Lab Routine Syncope, unspecified syncope type 03/18/2022 3:22 PM EST [facility] End: 03-19-2023 Complete blood count with white cell differential, manual CBC and Differential Lab Routine Syncope, unspecified syncope type 1 Occurrences starting 03/18/2022 until 03/19/2023 [facility] Comment on above: 1 Occurrences starting 03/18/2022 until 03/19/2023 End: 05-19-2024 Complete blood count with white cell differential, manual CBC and Differential 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 1 Occurrences starting 05/19/2023 until 05/19/2024 [facility] Comment on above: 1 Occurrences starting 05/19/2023 until 05/19/2024 End: 01-23-2022 Comprehensive metabolic 2000 panel - Serum or Plasma CMP (CMP) (FOR REMOTE [facility] USE) Lab Routine Elevated liver enzymes 1 Occurrences starting 01/23/2021 until 01/23/2022 [facility] Work Phone: Comment on above: 1 Occurrences starting 01/23/2021 until 01/23/2022 End: 03-19-2023 Comprehensive metabolic 2000 panel - Serum or Plasma Comprehensive Metabolic Panel Lab Routine Syncope, unspecified syncope type 1 Occurrences starting 03/18/2022 until 03/19/2023 [facility] Comment on above: 1 Occurrences starting 03/18/2022 until 03/19/2023 Comprehensive metabo lic 2000 panel - Serum or Plasma Comprehensive Metabolic Panel Lab Routine Syncope, unspecified syncope type 03/18/2022 3:22 PM EST [facility] End: 05-19-2024 Comprehensive metabolic 2000 panel - Serum or Plasma Comprehensive Metabolic Panel Lab Routine 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 1 Occurrences starting 05/19/2023 until 05/19/2024 [facility] Comment on above: 1 Occurrences starting 05/19/2023 until 05/19/2024 Comprehensive metabo lic 2000 panel - Serum or Plasma Comprehensive Metabolic Panel Lab Routine Morning draw (Lab) until discontinued starting 06/17/2023, 4 completed [facility] Work Phone: Comment on above: Morning draw (Lab) until discontinued st arting 06/17/2023, 4 completed End: 06-19-2023 Continuous Pulse oximetry, In Phase 1 Continuous Pulse oximetry, In Phase 1 Respiratory Care Routine Continuous until discontinued starting 06/19/2023 [facility] Work Phone: Comment on above: Continuous until discontinued starting 0 06/19/2023 ECG 12 Lead ECG 12 Lead ECG STAT 08/31/2023 2:07 PM EDT [facility] Work Phone: ECG 12 lead ECG 12 lead ECG STAT 02/05/2024 3:31 PM EDT [facility] Work Phone: End: 02-12-2024 ECG 12 lead ECG 12 lead ECG STAT Once for 1 Occurrences starting 02/12/2024 until 02/12/2024 [facility] Work Phone: Comment on above: Once for 1 Occurrences starting 02/12/20 24 until 02/12/2024 ECG 12 lead ECG 12 lead ECG STAT 02/12/2024 5:44 AM EDT [facility] Work Phone: ECG 12 Lead ECG 12 Lead ECG STAT 06/19/2024 3:02 PM [facility] Work Phone: End: 08-24-2024 ECG 12 lead [facility] Work Phone: Comment on above: Once for 1 Occurrences starting 08/25/19 25 until 08/24/2024 End: 03-19-2023 EEG (STANDARD) EEG (Standard) Neurology Routine Syncope, unspecified syncope type 1 Occurrences starting 03/18/2022 until 03/19/2023 [facility] Work Phone: Comment on above: 1 Occurrences starting 03/18/2022 until 03/19/2023 Electrocardiogram, 1 2-lead PRN ACS symptoms Electrocardiogram, 12-lead PRN ACS symptoms ECG Routine As needed until discontinued starting 06/17/2023 [facility] Work Phone: Comment on above: As needed until discontinued starting Electrocardiogram, 1 2-lead PRN ACS symptoms Electrocardiogram, 12-lead PRN ACS symptoms ECG Routine As needed until discontinued starting 08/31/2023 [facility] Work Phone: Comment on above: As needed until discontinued starting Electrocardiogram, 1 2-lead PRN ACS symptoms Electrocardiogram, 12-lead PRN ACS symptoms ECG Routine As needed until discontinued starting 02/05/2024 [facility] Work Phone: Comment on above: As needed until discontinued starting Electrocardiogram, 1 2-lead PRN ACS symptoms Electrocardiogram, 12-lead PRN ACS symptoms ECG Routine As needed until discontinued starting 02/06/2024 [facility] Work Phone: Comment on above: As needed until discontinued starting End: 08-24-2024 Extra Tubes [facility] Work Phone: Comment on above: Once (Lab) for 1 Occurrences starting until 08/24/2024 End: 02-12-2024 Extra Urine Swanson Tube Extra Urine Swanson Tube Lab Timed Once for 1 Occurrences starting 02/12/2024 until 02/12/2024 [facility] Work Phone: Comment on above: Once for 1 Occurrences starting 02/12/20 24 until 02/12/2024 End: 02-25-2020 Fibrinogen Fibrinogen Lab Routine One Time for 1 Occurrences starting 02/25/2020 until 02/25/2020 [facility] on above: One Time for 1 Occurrences starting 09/2019 until 02/25/2020 Fibrinogen Fibrinogen Lab R outine 02/25/2020 8:08 PM EST [facility] End: 03-19-2023 Folate [Mass/volume] in Serum or Plasma Folate Lab Routine Syncope, unspecified syncope type 1 Occurrences starting 03/18/2022 until 03/19/2023 [facility] Comment on above: 1 Occurrences starting 03/18/2022 until 03/19/2023 Folate [Mass/volume] in Serum or Plasma Folate Lab Routine Syncope, unspecified syncope type 03/18/2022 3:22 PM EST [facility] End: 01-23-2022 Gamma glutamyl transferase [Enzymatic activity/volume] in Serum or Plasma GGT BLD Lab Routine Elevated alkaline phosphatase level 1 Occurrences starting 01/23/2021 until 01/23/2022 [facility] Work Phone: Comment on above: 1 Occurrences starting 01/23/2021 until 01/23/2022 Glucose [Mass/volume ] in Serum or Plasma [facility] Work Phone: Comment on above: Every 4 hours until discontinued startin g 06/17/2023 As needed (Lab) unti l discontinued starting 06/17/2023 Glucose [Mass/volume ] in Serum or Plasma POCT Glucose Point of Care Testing - Docked Device Routine As needed (Lab) until discontinued starting 08/31/2023 [facility] Work Phone: Comment on above: As needed (Lab) until discontinued start ing 08/31/2023 End: 09-03-2023 Glucose [Mass/volume] in Serum or Plasma [facility] Work Phone: Comment on above: 4 times daily before meals and at bedtim e for 3 Days starting 08/31/2023 until 09/03/2023 4 times daily before meals and at bedtime for 3 Days starting 08/31/2023 until 09/03/2023, 8 completed Glucose [Mass/volume ] in Serum or Plasma POCT Glucose Point of Care Testing - Docked Device Routine As needed (Lab) until discontinued starting 08/31/2023 [facility] Work Phone: Comment on above: As needed (Lab) until discontinued start ing 08/31/2023 End: 02-08-2024 Glucose [Mass/volume] in Serum or Plasma POCT Glucose Point of Care Testing - Docked Device Routine 4 times daily before meals and at bedtime for 3 Days starting 02/06/2024 until 02/08/2024, 4 completed [facility] Work Phone: Comment on above: 4 times daily before meals and at bedtim e for 3 Days starting 02/06/2024 until 02/08/2024, 4 completed Glucose [Mass/volume ] in Serum or Plasma POCT Glucose Point of Care Testing - Docked Device Routine As needed (Lab) until discontinued starting 02/06/2024 [facility] Work Phone: Comment on above: As needed (Lab) until discontinued start ing 02/06/2024 End: 02-12-2024 Glucose [Mass/volume] in Serum or Plasma POCT Glucose Point of Care Testing - Docked Device STAT Once (Lab) for 1 Occurrences starting 02/12/2024 until 02/12/2024 [facility] Work Phone: Comment on above: Once (Lab) for 1 Occurrences starting until 02/12/2024 End: 02-13-2024 Glucose [Mass/volume] in Serum or Plasma POCT Glucose Point of Care Testing - Docked Device STAT Once (Lab) for 1 Occurrences starting 02/13/2024 until 02/13/2024 [facility] Service Area Work Phone: Comment on above: Once (Lab) for 1 Occurrences starting until 02/13/2024 End: 05-19-2024 Hemoglobin A1c/Hemoglobin.total in Blood Hemoglobin A1c 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 1 Occurrences starting 05/19/2023 until 05/19/2024 [facility] Comment on above: 1 Occurrences starting 05/19/2023 until 05/19/2024 End: 01-23-2022 Iron and Iron binding capacity panel - Serum or Plasma IRON + TIBC Lab Routine Elevated liver enzymes 1 Occurrences starting 01/23/2021 until 01/23/2022 [facility] Work Phone: Comment on above: 1 Occurrences starting 01/23/2021 until 01/23/2022 End: 08-24-2024 Light Blue Top [facility] Work Phone: Comment on above: Once for 1 Occurrences starting 08/25/19 25 until 08/24/2024, 1 completed End: 03-19-2023 Lipid 1996 panel - Serum or Plasma Lipid Panel Lab Routine Syncope, unspecified syncope type 1 Occurrences starting 03/18/2022 until 03/19/2023 [facility] Comment on above: 1 Occurrences starting 03/18/2022 until 03/19/2023 Lipid 1996 panel - S matteo or Plasma Lipid Panel Lab Routine Syncope, unspecified syncope type 03/18/2022 3:22 PM [facility] End: 05-19-2024 Lipid 1996 panel - Serum or Plasma Lipid Panel 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 1 Occurrences starting 05/19/2023 until 05/19/2024 [facility] Comment on above: 1 Occurrences starting 05/19/2023 until 05/19/2024 Magnesium [Mass/volu me] in Serum or Plasma Magnesium Lab Routine Morning draw (Lab) until discontinued starting 06/17/2023, 4 completed [facility] Service Area Work Phone: Comment on above: Morning draw (Lab) until discontinued st arting 06/17/2023, 4 completed End: 03-19-2023 MR Brain With And Without Contrast MR Brain With And Without Contrast Imaging Routine Syncope, unspecified syncope type 1 Occurrences starting 03/18/2022 until 03/19/2023 [facility] Comment on above: 1 Occurrences starting 03/18/2022 until 03/19/2023 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 [Presence] in Blood [facility] Oxygen therapy [[facility] Set] Initiate Oxygen Therapy Protocol Respiratory Care Routine Daily until discontinued starting 02/28/2020 [facility] Comment on above: Daily until discontinued starting 2019 Path report.final Dx Spec [facility] Work Phone: Pathogen Reduced Lekuoreduced Platelet Pheresis Pathogen Reduced Lekuoreduced Platelet Pheresis Blood Bank Routine 02/28/2020 10:15 AM [facility] [employer] [facility] Patient Education [facility] Work Phone: Patient referral [facility] Work Phone: PREPARE FRESH FROZEN PLASMA PREPARE FRESH FROZEN PLASMA Blood Bank Routine 02/28[facility]2020 [facility] (CROSSMATCH) PREPARE RBC (CROSSMATCH) Blood Bank Routine 02/28/2020 10:15 AM EST [facility] End: 06-19-2024 Pulse oximetry, continuous Pulse oximetry, continuous Respiratory Care STAT Continuous until discontinued starting 06/19/2024 [facility] Work Phone: Comment on above: Continuous until discontinued starting 0 06/19/2024 Spirometry panel Incentive mike metry Respiratory Care Routine Every 2hr while awake until discontinued starting 02/28/2020 [facility] Comment on above: Every 2hr while awake until discontinued starting 02/28/2020 Stool Pathogen Panel, PCR Stool Pathogen Panel, PCR Microbiology Routine Diarrhea due to malabsorption Ordered: 05/22/2023 [facility] Work Phone: Comment on above: Ordered: 05/22/2023 Surgical pathology study [facility] Work Phone: Comment on above: Release Upon Ordering for 1 Occurrences starting 06/19/2023, 1 completed End: 06-20-2023 Surgical pathology study [facility] Work Phone: Comment on above: Once (Lab) for 1 Occurrences starting until 06/20/2023, 1 completed End: 03-19-2023 Thyrotropin [Units/volume] in Serum or Plasma TSH Lab Routine Syncope, unspecified syncope type 1 Occurrences starting 03/18/2022 until 03/19/2023 [facility] Comment on above: 1 Occurrences starting 03/18/2022 until 03/19/2023 Thyrotropin [Units/v olume] in Serum or Plasma TSH Lab Routine Syncope, unspecified syncope type 03/18/2022 3:22 PM [facility] End: 05-19-2024 Thyrotropin [Units/volume] in Serum or Plasma TSH 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 1 Occurrences starting 05/19/2023 until 05/19/2024 [facility] Comment on above: 1 Occurrences starting 05/19/2023 until 05/19/2024 End: 08-12-2025 Thyrotropin [Units/volume] in Serum or Plasma TSH Lab Routine 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 1 Occurrences starting 08/12/2024 until 08/12/2025 [facility] Comment on above: 1 Occurrences starting 08/12/2024 until 08/12/2025 End: 05-19-2024 Thyroxine (T4) [Mass/volume] in Serum or Plasma T4 Lab Routine 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 1 Occurrences starting 05/19/2023 until 05/19/2024 [facility] Comment on above: 1 Occurrences starting 05/19/2023 until 05/19/2024 End: 08-12-2025 Thyroxine (T4) [Mass/volume] in Serum or Plasma T4 Lab Routine 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 1 Occurrences starting 08/12/2024 until 08/12/2025 [facility] Work Phone: Comment on above: 1 Occurrences starting 08/12/2024 until 08/12/2025 End: 02-12-2024 Urinalysis complete W Reflex Culture panel - Urine Urinalysis with Reflex Culture and Microscopic Lab STAT Once (Lab) for 1 Occurrences starting 02/12/2024 until 02/12/2024 [facility] Work Phone: Comment on above: Once (Lab) for 1 Occurrences starting until 02/12/2024 Urinalysis complete W Reflex Culture panel - Urine Urinalysis with Reflex Culture and Microscopic Lab STAT 02/12/2024 1:02 AM EDT [facility] Work Phone: End: 02-22-2022 Us abdominal real time w/image limited US ABD RT UPPER QUADRANT Radiology Routine Elevated liver enzymes 1 Occurrences starting 01/23/2021 until 02/22/2022 [facility] Work Phone: Comment on above: 1 Occurrences starting 01/23/2021 until 02/22/2022 End: 06-21-2024 US Head and neck soft tissue [facility] Service Area Work Phone: Comment on above: Once for 1 Occurrences starting 06/22/19 until 06/21/2024 End: 05-23-2023 US Liver limited [facility] Service Area Work Phone: Comment on above: Once for 1 Occurrences starting 05/23/19 24 until 05/23/2023 End: 05-19-2024 Vitamin D, 25-hydroxy measurement Vitamin D, Total, 25-OH Lab Routine 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 1 Occurrences starting 05/19/2023 until 05/19/2024 [facility] Comment on above: 1 Occurrences starting 05/19/2023 until 05/19/2024 End: 07-27-2024 Vitamin D, 25-hydroxy measurement Vitamin D, Total, 25-OH Lab Routine Vitamin D deficiency 1 Occurrences starting 07/28/2023 until 07/27/2024 [facility] Work Phone: Comment on above: 1 Occurrences starting 07/28/2023 until 07/27/2024 End: 08-12-2025 Vitamin D, 25-hydroxy measurement Vitamin D, Total, 25-OH Lab Routine 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 1 Occurrences starting 08/12/2024 until 08/12/2025 [facility] Comment on above: 1 Occurrences starting 08/12/2024 until 08/12/2025 End: 11-03-2025 Vitamin D, 25-hydroxy measurement Vitamin D, Total, 25-OH Lab Routine Vitamin D insufficiency 1 Occurrences starting 11/03/2024 until 11/03/2025 [facility] Work Phone: Comment on above: 1 Occurrences starting 11/03/2024 until 11/03/2025 [facility] Immun[facility] Immunization Date Immunization Notes Care Provider Elisabeth eisenberg 08-15-2020 Pfizer Purple Cap SARS-CoV-2 Carri Carrasco PA-C Work Phone: [facility] Work Phone: 07-25-2020 Pfizer Purple Cap SARS-CoV-2 Carri Carrasco PA-C Work Phone: [facility] Work Phone: 03-01-2020 tetanus toxoid, reduced diphtheria toxoid, and acellular pertussis vaccine, adsorbed [facility], [place] 02-28-2020 diphtheria, tetanus toxoids and acellular pertussis vaccine, unspecified formulation [facility] [place] 02-28-2020 measles, mumps and rubella virus vaccine [facility], [place] 08-26-2016 tetanus toxoid, reduced diphtheria toxoid, and acellular pertussis vaccine, adsorbed Radha Campos APRN.CORINA Work Phone: [facility] NEGATED: Highlighted row has not occurred!03-01-2020 measles, mumps and rubella virus vaccine Raquel Gutierres [facility] [place] Comment on above: Deferred: - patient immune Payers Date Payer Category Payer Legal Liability / Liability Insurance ACCIDENT RELATED NON-MEDICARE [id number] 2023 Self-pay [id number] 2021 Medicaid (Managed Care) 1.2. [id number] 2021 Private Health Insurance [id number] 2016 Medicaid [facility] MEDICAID [facility] [employer] MEDICAID [id number] 2016-Present [phone] [address] [place] [address] Medicaid [id number] 2016 Medicaid [id number] 2015 Medicare [id number] .[id number] 2015 Private Health Insurance [id number] 1998 Medicare [id number] 1985 Unknown [id number] 2.16.840.1.963923.3.579.2 .1068 1985 Unknown [id number] 2.16.840.1.046755.3.579.2 .1068 1985 Unknown [id number] 2.16.840.1.445672.3.579.2 .1068 1985 Unknown [id number] 2.16.840.1.285916.3.579.2 .1068 1985 Unknown [id number] 2.840.1.613163.3.579.2 1985 Unknown [id number] 2.16840.1.969224.3.579.2 .1985 Unknown [id number] 2.840.1.956414.3.579.2 1985 Unknown [id number] 2.840.1.260760.3.579.2 1985 Unknown [id number] 2.16840.1.211998.3.579.2 1985 Unknown [id number] 2.16840.1.225341.3.579.2 1985 Unknown [id number] 2.16840.1.739344.3.579.2 1985 Unknown [id number] 2.16840.1.334991.3.579.2 .1985 Unknown [id number] 2.16840.1.752226.3.579.2 1985 Unknown [id number] 2.16.840.1.524851.3.579.2 .1985 Unknown [id number] 2.16.840.1.393762.3.579.2 .479 1985 Unknown [id number] 2.16.840.1.839748.3.579.2 .47 1985 Unknown [id number] 2.16.840.1.049946.3.579.2 .47 1985 Unknown [id number] 2.16840.1.393493.3.579.2 .124 1985 Unknown [id number] 2.16840.1.248258.3.579.2 .90 1985 Unknown [id number] 2.16840.1.067832.3.579.2 .1985 Unknown [id number] 2.16840.1.569984.3.579.2 .1985 Unknown [id number] 2.840.1.811664.3.579.2 .1244 1985 Unknown [id number] 2.840.1.326914.3.579.2 .1244 1985 Unknown [id number] 2.840.1.728117.3.579.2 .1244 1985 Unknown [id number] 2.16840.1.038925.3.579.2 .1244 1985 Unknown [id number] 2.840.1.258325.3.579.2 .1244 1985 Unknown [id number] 2.16840.1.776196.3.579.2 .1244 1985 Unknown [id number] 2.16840.1.341436.3.579.2 .1244 1985 Unknown [id number] 2.16840.1.050899.3.579.2 .1244 1985 Unknown [id number] 2.16840.1.230722.3.579.2 .1244 1985 Unknown [id number] 2.16.840.1.851299.3.579.2 .1244 1985 Unknown [id number] 2.16.840.1.863129.3.579.2 .1244 1985 Unknown [id number] 2.16.840.1.378576.3.579.2 .1244 1985 Unknown [id number] 2.16.840.1.089970.3.579.2 .1244 1985 Unknown [id number] 2.16.840.1.192906.3.579.2 .1244 1985 Unknown [id number] 2.840.1.018508.3.579.2 .1244 1985 Unknown [id number] 2.16840.1.473020.3.579.2 .1244 1985 Unknown [id number] 2.840.1.528180.3.579.2 .1244 1985 Unknown [id number] 2.840.1.375692.3.579.2 .1244 1985 Unknown [id number] 2.840.1.103338.3.579.2 .1244 1985 Unknown [id number] 2.16840.1.589918.3.579.2 .1243 1985 Unknown [id number] 2.840.1.616347.3.579.2 .1243 1985 Unknown [id number] 2.16840.1.167546.3.579.2 .1243 1985 Unknown [id number] 2.16840.1.088341.3.579.2 .1243 1985 Unknown [id number] 2.16840.1.321819.3.579.2 .1243 1985 Unknown [id number] 2.16840.1.471585.3.579.2 .1243 1985 Unknown [id number] 2.16.840.1.978015.3.579.2 .1243 1985 Unknown [id number] 2.16.840.1.833066.3.579.2 .1242 1985 Unknown [id number] 2.16.840.1.813214.3.579.2 .1242 1985 Unknown [id number] 2.16.840.1.762270.3.579.2 .1242 1985 Unknown [id number] 2.16.840.1.519939.3.579.2 .1242 1985 Unknown [id number] 2.16.840.1.170766.3.579.2 .1242 1985 Unknown [id number] 2.16840.1.246272.3.579.2 .1242 1985 Unknown [id number] 2.16840.1.234956.3.579.2 .1242 1985 Unknown [id number] 2.16840.1.460723.3.579.2 .1242 1985 Unknown [id number] 2.16.840.1.095008.3.579.2 .1242 1985 Unknown [id number] 2.16840.1.620748.3.579.2 .1242 1985 Unknown [id number] 2.16840.1.647833.3.579.2 .1985 Unknown [id number] 2.16.840.1.952691.3.579.2 .1985 Unknown [id number] 2.16.840.1.227786.3.579.2 .1985 Unknown [id number] 2.16.840.1.151766.3.579.2 .1985 Unknown [id number] 2.16.840.1.185233.3.579.2 .903 1985 Unknown [id number] 2.840.1.368936.3.579.2 .902 1985 Unknown [id number] 2.840.1.978789.3.579.2 .902 1985 Unknown [id number] 2.840.1.741775.3.579.2 .902 Unknown Unknown [id number] 2.840.1.645110.3.579.2 .462 Unknown [id number] 2.840.1.517940.3.579.2 .462 Unknown [id number] 2.840.1.350276.3.579.2 .462 Unknown [id number] 2.840.1.811776.3.579.2 .462 Unknown [id number] 2.840.1.687268.3.579.2 .462 Unknown [id number] 2.840.1.996647.3.579.2 .462 Unknown [id number] 2.840.1.159199.3.579.2 .462 Unknown [id number] 2.840.1.077986.3.579.2 .462 Unknown [id number] 2.840.1.068412.3.579.2 .462 Unknown [id number] 840.1.096183.3.579.2 .462 Unknown [id number] 2.840.1.378859.3.579.2 .462 Unknown [id number] 2.840.1.800558.3.579.2 .462 Unknown [id number] 2.840.1.638390.3.579.2 .462 Unknown [id number] 2.840.1.681398.3.579.2 .462 Unknown [id number] 2.840.1.915604.3.579.2 .462 Unknown [id number] 2.16.840.1.928151.3.579.2 .462 Unknown [id number] 2.16.840.1.136214.3.579.2 .462 Unknown [id number] 2.16.840.1.096697.3.579.2 .462 Unknown [id number] 2.16.840.1.057516.3.579.2 .462 Unknown [id number] 2.16.840.1.861025.3.579.2 .462 Unknown [id number] 2.16.840.1.157999.3.579.2 .462 Unknown [id number] 2.16.840.1.815334.3.579.2 .462 Worker's Compensation [id number] Social History Date Type Detail Facility Start: 02-28-2020 End: 08-19-2022 Tobacco smoking status NHIS Never smoker [facility] Work Phone: Start: 02-28-2020 End: 08-19-2022 Tobacco use and exposure Never used [place] Start: 02-28-2020 End: 07-20-2024 Alcohol intake Lifetime non-drinker (finding) [place] Start: 02-25-2020 History SDOH Alcohol Frequency 1 [place] Start: 1985 Sex Assigned At Not on file [place] Start: 12-23-2020 End: 08-25-2024 Exposure to SARS-CoV-2 (event) Not sure [place] Start: 01-24-2022 End: 03-27-2023 Tobacco smoking consumption unknown [facility] Start: 01-22-2021 End: 08-13-2023 Alcohol intake Current non-drinker of alcohol (finding) [facility] Start: 08-19-2022 End: 02-06-2024 Daily caffeinated coffee consumption Daily caffeinated coffee consumption [facility] Start: 10-09-2015 Rare [facility] Start: 10-09-2015 None [facility] Start: 10-09-2015 - [facility] Start: 10-09-2015 Non-smoker [facility] Start: 1985 Sex Assigned At Female [facility] Start: 03-18-2022 End: 11-03-2024 Alcohol intake Ex-drinker (finding) [facility] Start: 08-19-2022 End: 02-06-2024 Gender identity Not on file [facility] Start: 02-22-2022 Gender identity Identifies as female gender (finding) [facility] Start: 02-22-2022 Sexual orientation Heterosexual (finding) [facility] Start: 03-16-2022 Adult Depression Screening Assessment 15 [facility] Has the [email or web address], or [employer] threatened to shut off services in your home in past 12Mo No [facility] How often to you hav e a drink containing alcohol? Never [facility] How hard is it for y ou to pay for the very basics like food, housing, medical care, and heating Not very hard [facility] Work Phone: In the past 12 month s, was there a time when you were not able to pay the mortgage or rent on time? Yes [facility] Work Phone: How hard is it for y ou to pay for the very basics like food, housing, medical care, and heating Somewhat hard [facility] (I/We) worried lida er (my/our) food would run out before (I/we) got money to buy more. Never true [facility] Work Phone: Start: 10-18-2023 End: 12-10-2023 Exposure to SARS-CoV-2 (event) Unable to assess [facility] Work Phone: Start: 07-09-2024 End: 07-21-2024 Sex Female (finding) [facility] Medical Equipment Procedure Code Equipment Code Equipment Original Text Equipment Identifier Dates [id number] Start: 06-23-2023 Comment on above: Inject 1 Each subcut aneously every 24 hours. Give with each insulin administration. USE 2 STRIPS TO CHEC K GLUCOSE ONCE DAILY Give with each insul in administration. Uses 4 per day with insulin injections. TEST SUGARS TWIC E DAILY [id number] Start: 06-23-2023 Give with each insulin administration. Uses 4 per day with insulin injections. [id number] Start: 07-10-2023 USE 2 STRIPS TO CHECK GLUCOSE ONCE DAILY [id number] Start: 06-23-2023 1 each 4 times a day. Use 1 new pen needle with insulin injections four times daily as directed. 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 - recent [C-SSRS] [facility] Work Phone: Mental Status Date Assessment Result Facility 07-19-2024 Cognitive function Voice/Name [facility] Work Phone: 03-27-2023 Cognitive function Level Of Cons ciousness Awake;Alert;Appropriate;Follow s Commands [facility] Work Phone: Clinical Notes 01-10-2016 to 11-24-2024 Antonio Tan MD - 11/24/2024 2:01 AM Roseanne Tan MD - 11/24/2024 2:01 AM Michelle Bridges CNP - 11/03/2024 1:00 PM Bryan Joyner DO - 08/24/2024 11:05 PM EDT Note Date & Type Note Facility 11-24-2024 Physician Emergency department Note Images from the original note were not included. 39-year-old female presents with a chief complaint of low back pain going down both her legs the right more so than the left. Denies any saddle anesthesia or loss of control of bowel or bladder. Patient has had back pain since last year. She had an injection this past Friday which she states did not help. She sees pain management in [place]. Review of Systems Physical Exam Vitals and nursing note reviewed. Constitutional: Appearance: She is not ill-appearing or toxic-appearing. HENT: Head: Normocephalic and atraumatic. Right Ear: Tympanic membrane normal. Left Ear: Tympanic membrane normal. Nose: Nose normal. Mouth/Throat: Mouth: Mucous membranes are moist. Pharynx: No oropharyngeal exudate or posterior oropharyngeal erythema. Eyes: Extraocular Movements: Extraocular movements intact. Conjunctiva/sclera: Conjunctivae normal. Pupils: Pupils are equal, round, and reactive to light. Cardiovascular: Rate and Rhythm: Normal rate and regular rhythm. Pulmonary: Effort: Pulmonary effort is normal. No respiratory distress. Breath sounds: Normal breath sounds. No wheezing, rhonchi or rales. Abdominal: General: There is no distension. Palpations: Abdomen is soft. There is no mass. Tenderness: There is no abdominal tenderness. There is no guarding. Musculoskeletal: General: No deformity. Normal range of motion. Arms: Cervical back: Neck supple. No tenderness. Comments: Negative straight leg raise test. Diffuse tenderness, no focal Skin: General: Skin is warm and dry. Neurological: General: No focal deficit present. Mental Status: She is alert and oriented to person, place, and time. Psychiatric: Mood and Affect: Mood normal. Labs Reviewed - No data to display No orders to display Procedures Medical Decision Making 39-year-old female presents with a chief complaint of low back pain going down both her legs the right more so than the left. Denies any saddle anesthesia or loss of control of bowel or bladder. Patient has had back pain since last year. She had an injection this past Friday which she states did not help. She sees pain management in [place]. Patient was treated with 0.5 mg IM Dilaudid, 50 mg IM Toradol and 5 mg oral Valium. She is resting comfortably and feeling better. She can call a ride to take her home. Was no trauma and no fever, additional diagnostics are not necessary. Diagnoses as of 11/24/24318 Acute exacerbation of chronic low back pain Antonio Tan MD 11/24/24318 [facility] Work Phone: 11-24-2024 Emergency department Note Images from the original note were not included. 39-year-old female presents with a chief complaint of low back pain going down both her legs the right more so than the left. Denies any saddle anesthesia or loss of control of bowel or bladder. Patient has had back pain since last year. She had an injection this past Friday which she states did not help. She sees pain management in [place]. Review of Systems Physical Exam Vitals and nursing note reviewed. Constitutional: Appearance: She is not ill-appearing or toxic-appearing. HENT: Head: Normocephalic and atraumatic. Right Ear: Tympanic membrane normal. Left Ear: Tympanic membrane normal. Nose: Nose normal. Mouth/Throat: Mouth: Mucous membranes are moist. Pharynx: No oropharyngeal exudate or posterior oropharyngeal erythema. Eyes: Extraocular Movements: Extraocular movements intact. Conjunctiva/sclera: Conjunctivae normal. Pupils: Pupils are equal, round, and reactive to light. Cardiovascular: Rate and Rhythm: Normal rate and regular rhythm. Pulmonary: Effort: Pulmonary effort is normal. No respiratory distress. Breath sounds: Normal breath sounds. No wheezing, rhonchi or rales. Abdominal: General: There is no distension. Palpations: Abdomen is soft. There is no mass. Tenderness: There is no abdominal tenderness. There is no guarding. Musculoskeletal: General: No deformity. Normal range of motion. Arms: Cervical back: Neck supple. No tenderness. Comments: Negative straight leg raise test. Diffuse tenderness, no focal Skin: General: Skin is warm and dry. Neurological: General: No focal deficit present. Mental Status: She is alert and oriented to person, place, and time. Psychiatric: Mood and Affect: Mood normal. Labs Reviewed - No data to display No orders to display Procedures Medical Decision Making 39-year-old female presents with a chief complaint of low back pain going down both her legs the right more so than the left. Denies any saddle anesthesia or loss of control of bowel or bladder. Patient has had back pain since last year. She had an injection this past Friday which she states did not help. She sees pain management in [place]. Patient was treated with 0.5 mg IM Dilaudid, 50 mg IM Toradol and 5 mg oral Valium. She is resting comfortably and feeling better. She can call a ride to take her home. Was no trauma and no fever, additional diagnostics are not necessary. Diagnoses as of 11/24/24 0319 Acute exacerbation of chronic low back pain Antonio Tan MD 11/24/24318 documented in this encounter [facility] Work Phone: 11-03-2024 History of Present illness Narrative Behavioral Health Outpatient Progress Note Patient Name: Anahi Dwyer MR #: [id number] : 1985 Chief Complaint: Medication and symptom review/management Interval History: 11/03/2024 Patient presents for follow up exam. I discussed risks, benefits and alternatives of a telemedicine video consultation with the patient (and any accompanying persons) including the risks that the patient's personal health details and medical records will be discussed over real-time, synchronous, interactive audio technology, the visit will not be recorded without the express consent of both the provider and the patient, and that there are inherent diagnostic limitations compared to [id number] evaluations. We elected to proceed with the telemedicine video consultation. Patient is engaged and cooperative during conversation. Last visit was on 08-12-24 and patient continues with [employer]. 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 Anxiety: good, no panic attacks, mind does not race Depression: mood is good and does endorse bouts of sadness when she thinks of her daughter. Missing her second daughter (was adopted out), not fluctuating much Irritable around her cycle Focus/concentration: adequate Sleep: falling asleep easily, staying asleep, getting about 9 hours, no nightmares Appetite: too good Trying to exercise. Doing jumping jacks and squats at home. No anhedonia. Motivated. Aggressive behaviors: none Paranoia: none Risky behaviors: none Hypomanic/manic episodes: denies AVH: none Suicidal ideations/homicidal ideations: denies Current stressors: missing her daughter Current psychotherapy: sees [facility] Previous Visit: 08/12/2024 Patient presents for follow up exam. I discussed risks, benefits and alternatives of a telemedicine video consultation with the patient (and any accompanying persons) including the risks that the patient's personal health details and medical records will be discussed over real-time, synchronous, interactive audio technology, the visit will not be recorded without the express consent of both the provider and the patient, and that there are inherent diagnostic limitations compared to [id number] evaluations. We elected to proceed with the telemedicine video consultation. Patient is engaged and cooperative during conversation. Last visit was on 05-17-24 and patient continues with [facility]a [facility]. 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 Anxiety: decently controlled, no panic attacks, mind does not race Depression: mood has been up and down, does not fluctuate too much, does not feel depressed. Irritable at times. Focus/concentration: adequate Sleep: falls asleep easily, wakes up at times, getting about 6.5 hours, no nightmares. Appetite: too good Exercising at times. No anhedonia. Motivated. Aggressive behaviors: none Paranoid at work a little that her boss does not like her. Risky behaviors: none Hypomanic/manic episodes: none AVH: denies Suicidal ideations/homicidal ideations: none Current stressors: feels she has not had closure of her daughter being adopted out- misses her a lot- has discussed this with her therapist. Current psychotherapy: attend [facility] Current Medications: Medications Prior to Visit[1] control: none Lethality: Denies suicidal or homicidal ideations. Psychiatric ROS: Negative unless noted above. Review of Systems: Constitutional: Denies fever, chills, diaphoresis, malaise Eyes: Denies blurred vision, double vision ENT: Denies nasal congestion, sore throat, ear pain Neurological: Denies headache, photophobia, weakness, numbness CVS: Denies chest pain or palpitations Respiratory: Denies dyspnea or cough Musculoskeletal: Denies joint pain or muscle aches GI: Denies nausea, vomiting, constipation, or diarrhea : Denies urinary urgency, frequency, or burning Integumentary: Denies itching or rash Endocrine: Denies heat/cold intolerance or weight loss/weight gain Physical Exam: Patient is in a seated position with view of the upper body. General: Alert and oriented to person, place, and time. Is in no acute distress. Well developed, hydrated, and nourished. Appears stated age. Skin: Skin is intact without rashes or lesions. Appropriate color for ethnicity. Head: The head is normocephalic and atraumatic. Neck: Supple Respiratory: Respirations are non labored. Musculoskeletal: Active ROM in upper extremities. Neurological: Motor function is normal in upper extremities. There were no vitals filed for this visit as this is a telehealth visit. Mental Status Evaluation: General Appearance & Behavior: age appropriate, pleasant, cooperative, good eye contact Grooming & Hygiene: street clothes Psychomotor Activity: no psychomotor abnormalities or muscle atrophy noted Speech: normal rate, rhythym, volume, and spontaneity Flow of Thought: linear and goal directed Thought Associations: Intact Content of Thought: No evidence of suicidal ideations/homicidal ideations/psychosis Mood: Good Affect: mood congruent Insight: intact Judgment: intact Orientation: alert and oriented to person, place, time, and circumstances Memory: intact recent and remote Attention: intact Concentration: intact Language: fluent Fund of Knowledge: estimated average intelligence AIMS exam completed: No abnormal involuntary movements noted or voiced by the patient. 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 Mood is overall good. Has sad bouts in regards to missing her daughter who was adopted. Will continue with Abilify and Prozac. Self care activities advised: good sleep hygiene, daily exercise, and healthy eating. Patient advised to seek immediate assistance for any SI/HI or aggressive behaviors. Pt voiced understanding. Continue with therapy. Encouraged patient to talk with her therapist about her feelings in regards to her daughter. - ARIPiprazole (ABILIFY) 5 MG tablet; Take 1 (one) tablet (5 mg total) by mouth daily . - FLUoxetine (PROZAC) 40 MG capsule; Take 1 (one) capsule (40 mg total) by mouth daily . JUANA (generalized anxiety disorder) JUANA-7: 3 indicating a mild level. Anxiety decently controlled. PTSD (post-traumatic stress disorder) Sleep is decent. No nightmares. Vitamin D insufficiency Will recheck level as patient has completed her supplementation. - Vitamin D, Total, 25-OH; Future Follow up in: Twelve weeks or sooner if needed -Chart reviewed. -OARRS reviewed. - Any available laboratory/imaging studies reviewed. - Past psychiatric history obtained. This patient is being prescribed one antipsychotic. Diagnostic work up including: BMI, blood pressure, hemoglobin A1c or blood glucose, TSH, and lipid panel have been completed in the past year performed within [facility] and available in [facility]. Glucose <126mg/dL, no indication of impaired glucose tolerance or insulin resistance in fasting or nonfasting state. *If the patient has been diagnosed with diabetes, they were made aware of the risk for weight gain, which may result in an increase in glucose/lipids. Diet and exercise is strongly recommended. The patient verbalized understanding of this warning and agrees to continue with plan. 05/17/2024 10:14 AM 11/03/2024 1:16 PM JUANA-7 JUANA-7 Score 4 3 05/17/2024 10:16 AM 11/03/2024 1:17 PM PHQ-9 PHQ-9 Total Score 6 3 Education: Continue medication as prescribed. Please report any side effects or intolerability of the medication. Report any new or worsening symptoms. Physical health: Maintain good physical health through exercise, adequate sleep, hydration, and well balanced meals. Avoid drug use, excess alcohol consumption, and use of nicotine. Psychotherapy: Talk about your mental health with a professional or other supportive people in your life. Work on social connections and interacting with others. Relaxation: Maintain a peaceful mind through relaxation techniques such as, meditation, mindfulness, yoga, stretching, and deep breathing exercises. Stay positive: Remember that you have things in your life to be thankful for. Gratitude is a way to keep a positive mindset. Journaling your thoughts and feelings on paper can help release the mind of the daily stressors or negative thoughts that may be affecting your mental health. Try to journal 3 things you are thankful for or 3 positives that happened to you each day. Screen time/social media: Please try to limit your screen time of the phone, TV, or computer. Excessive or prolonged socia media can impact your mental health negatively. Spend time outdoors when possible. [place] has natural mood boosting qualities and may help improve feelings of anxiety, stress, and depression. Seek emergent help for any worsening of depression or thoughts of harming self or others. Recommend aerobic exercise, if physically able to do so. This includes, walking, hiking, running/jogging, cycling, swimming, skiing, or resistance training (upper and lower body). Please strive for aerobic exercise, 5-7 days per week. Increase time as tolerated, for a goal of at least 30-45 minutes per session. Treatment options and alternatives reviewed with patient. Risks, benefits, side effects of all psychiatric medications discussed with patient and informed consent obtained. All questions were answered. Goals: Improve and/or stabilize mood. Improve anxiety. Improve symptoms of depression. Improve sleep. Improve coping skills. Improve interpersonal skills. Prevent psychiatric hospitalization. Michelle Lambert, [facility], PMHNP 11/03/2024 1:22 PM [1] Outpatient Medications Prior to Visit Medication Sig Dispense Refill albuterol 90 mcg/actuation inhaler Inhale 2 (two) puffs every 6 (six) hours as needed for wheezing . 1 g 0 cephALEXin (KEFLEX) 500 MG capsule Take 1 (one) capsule (500 mg total) by mouth 2 (two) times a day for 5 days . 10 capsule 0 insulin glargine (LANTUS) 100 unit/mL injection Inject 10 (ten) Units under the skin nightly . insulin lispro (AdmeLOG,HumaLOG) 100 unit/mL injection Inject 10 (ten) Units under the skin 3 (three) times a day before meals . loratadine 10 mg Tab 10 mg, pseudoePHEDrine 120 mg TbER 120 mg Take 10 mg by mouth daily . phenazopyridine (PYRIDIUM) 200 MG tablet Take 1 (one) tablet (200 mg total) by mouth 3 (three) times a day for 3 days . 9 tablet 0 Rezdiffra 80 mg Tab Take 80 mg by mouth daily . ARIPiprazole (ABILIFY) 5 MG tablet Take 1 (one) tablet (5 mg total) by mouth daily . 30 tablet 3 cyanocobalamin (B-12) 1000 MCG tablet Take 1 (one) tablet (1,000 mcg total) by mouth daily . ergocalciferol (ERGOCALCIFEROL) 1,250 mcg (50,000 unit) capsule Take 1 (one) capsule (50,000 Units total) by mouth once a week . 12 capsule 0 FLUoxetine (PROZAC) 40 MG capsule Take 1 (one) capsule (40 mg total) by mouth daily . 30 capsule 3 ketorolac (TORADOL) 10 mg tablet Take 1 (one) tablet (10 mg total) by mouth every 6 (six) hours as needed for pain . 20 tablet 0 metFORMIN (GLUCOPHAGE-XR) 500 MG 24 hr tablet Take 2 (two) tablets (1,000 mg total) by mouth . minoxidiL (LONITEN) 2.5 MG tablet Take 1 (one) tablet (2.5 mg total) by mouth daily Take 1/2 tablet by mouth once daily. . SUMAtriptan (IMITREX) 100 MG tablet One tab by mouth as needed for migraine. MAY repeat once in 2 hours if headaches persist. Max 2 pills per 24 hours; Max 2 days per week . 12 tablet 6 topiramate (TOPAMAX) 25 MG tablet Take 2 (two) tablets (50 mg total) by mouth 2 (two) times a day . 360 tablet 3 No facility-administered medications prior to visit. documented in this encounter [facility] 11-03-2024 Note Behavioral Health Ou tpatient Progress Note Patient Name: Anahi Dwyer MR #: [id number] : 1985 Chief Complaint: Medication and symptom review/management Interval History: 11/03/2024 Patient presents for follow up exam. I discussed risks, benefits and alternatives of a telemedicine video consultation with the patient (and any accompanying persons) including the risks that the patient's personal health details and medical records will be discussed over real-time, synchronous, interactive audio technology, the visit will not be recorded without the express consent of both the provider and the patient, and that there are inherent diagnostic limitations compared to [id number] evaluations. We elected to proceed with the telemedicine video consultation. Patient is engaged and cooperative during conversation. Last visit was on 08-12-24 and patient continues with Tonya. 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 Anxiety: good, no panic attacks, mind does not race Depression: mood is good and does endorse bouts of sadness when she thinks of her daughter. Missing her second daughter (was adopted out), not fluctuating much Irritable around her cycle Focus/concentration: adequate Sleep: falling asleep easily, staying asleep, getting about 9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 that she was having leg pain with sharp radiating pain and numbness and tingling someback pain. She went to [facility] . DO not have records yet, she states they did CT and bloodwork. Her blood sugar was 620. 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 She does report that today she feels better than yesterday. Blood sugar at time of appt was 229, but was 400 earlier. Review of Systems Gastrointestinal: Positive for abdominal pain. Genitourinary: Positive for bladder incontinence. Musculoskeletal: Positive for back pain. Neurological: Positive for tingling, weakness, numbness, headaches and paresthesias. Objective There were no vitals taken for this visit. Physical Exam No physical exam was completed due to being virtual visit. Assessment/Plan Problem List Items Addressed This Visit PVC's (premature ventricular contractions) Diarrhea due to malabsorption (HHS-HCC) New onset type 2 diabetes mellitus (Multi) - Primary Relevant Orders Hemoglobin A1C Referral to Endocrinology RESOLVED: Hyperglycemia Hepatic steatosis PTSD (post-traumatic stress disorder) JUANA (generalized anxiety disorder) Metabolic dysfunction-associated steatohepatitis (MASH) Other Visit Diagnoses Chronic bilateral low back pain with bilateral sciatica Relevant Orders Referral to Physical Therapy Chronic RUQ pain, NAFLD, GERD, Ibs-D - had EGD done which showed mod abnormal mucosa in the stomach and antrum, gastritis - liver bx showed non alcoholic fatty liver with stage IV fibrosis - on Rezdiffra this week - Continue Protonix - continue cholestyramine - bentyl prn 2. Uncontrolled DMII - still has not seen or established with endo, wants to stay within system - A1c increased to 7.3% from 6.1% -> 11.3% now - continue lantus 65 units at night (recently adjusted per pharmacy team) - continue sliding scale -metformin 500mg po bid - call in 2 weeks with update blood sugars 3. Thyroid tenderness and abnormal tsh -repeat tsh normal 08/30 2.34 -thyroid us normal 4. Depression and anxiety, stable - following with Psych 10/28/2023 -Continue Abilify 5 mg tablet daily - continue Prozac 20 mg capsule daily 5. Back pain, sciatica - has appt with orthopedic surgeon on Friday - will order PT - try muscle relaxer - will obtain records from [facility] 15 min spent on virtual appt with pt 10 min spent reviewing chart 5 min spent documenting 30 min Final diagnoses: [E11.9] New onset type 2 diabetes mellitus (Multi) [M54.42, M54.41, G89.29] Chronic bilateral low back pain with bilateral sciatica [I49.3] PVC's (premature ventricular contractions) [R73.9] Hyperglycemia [K90.9, R19.7] Diarrhea due to malabsorption (HHS-HCC) [K76.0] Hepatic steatosis [K75.81] Metabolic dysfunction-associated steatohepatitis (MASH) [F41.1] JUANA (generalized anxiety disorder) [F43.10] PTSD (post-traumatic stress disorder) documented in this [facility] Work Phone: 1(567) 498-948808-21-2024 History of Present illness Narrative* Carri Power, PharmD - 12/10/2023 4:30 PM EDT Pharmacy Post-Discharge Visit Anahi Dwyer is a 38 y.o. female who was referred to the Clinical Pharmacy Team to complete a post-discharge medication optimization and monitoring visit. The patient was referred for their Diabetes. Met briefly with patient today for diabetes follow-up; [facility] that have been worsening since Friday of last week. In brief, patient does not feel as though Novolog increase at last visit has helped--states BG is running taylor high. Discussed with patient that it will be imperative that she connects with an power plant electrician soon. Assessment/Plan Problem List Items Addressed This Visit New onset type 2 diabetes mellitus (Multi) Plan/Changes Continue all meds under the continuation of care with the referring provider and clinical pharmacy team Specialists: Patient currently not seeing an power plant electrician. Next PCP Follow-Up 12/30/23 Next Clinical Pharmacy Follow-Up This pharmacist to call patient this Friday. Carri Power PharmD Verbal consent to manage patient's drug therapy was obtained from the patient. They were informed they may decline to participate or withdraw from participation in pharmacy services at any time. documented in this [facility] Work Phone: [phone]) 873-670908-13-2024 History of Present illness Narrative* Carri Power PharmD - 12/02/2023 4:30 PM EDT Pharmacy Post-Discharge Visit Anahi Dwyer is a 38 y.o. female who was referred to the Clinical Pharmacy Team to complete a post-discharge medication optimization and monitoring visit. The patient was referred for their Diabetes. Recent Hospitalization Admission Date: 08/31/23 Discharge Date: 09/03/23 Discharge Diagnosis: Hyperglycemia Referring Provider: Dr. Nicola Glez DIABETES ASSESSMENT Diagnosed with Type 2 Diabetes May 2023. Patient was previously seeing a [facility] endocrinology provider, but has since switched- will be establishing (new patient visit) with [facility] power plant electrician. Since last Clinical Pharmacy visit, insurance successfully covered Novolog--thus, patient has switched over to Novolog from Humalog. Patient believes she is seeing *possibly* some slight improvement in her after-meal blood glucose numbers despite no dose change upon switching to Novolog. Patient confirms she is certainly seeing a quicker decrease in post-meal BG since switching to Novolog--also, despite no dose change when switching to Novolog. Current Diabetes Medication Regimen Lantus 66 units in the morning- patient has been taking 56 units in the morning Novolog 10 units TID with meals + sliding scale 1 unit for every 50 over 150 pre-meal Metformin ER 500 mg, 2 tablets BID Health Maintenance: Not discussed due to time Foot Exam: Eye Exam: Lipid Panel: LDL 122 mg/dL, triglycerides 214 mg/dL as of 06/17/23 Urine Albumin/Creatinine Ratio: DIET: Wake up (6:15-6:40 am) Breakfast (7-7:30 am): Banana Lunch (11 am-1 pm): Chicken, tineo beans Dinner (6:30 pm): Protein Bedtime (8:30 pm) EXERCISE: Patient is decently active, works at [employer] and is on her feet all day. Current monitoring regimen: Patient is using: continuous glucose monitor, Dexcom G7 Patient-Reported Blood Glucose: Dexcom Clarity data unavailable due to connectivity issues- this pharmacist and patient working with [employer] to resolve connection issues. BG Time 380 Bedtime 215-220 Waking (AM FPG) 215-220 Post-Breakfast (2 hr PPG) 340s-400 Pre-Lunch 300s Post-Lunch (2 hr PPG) *Patient has snack (apple, banana, grapes)* 400+ Pre-Dinner 400+ Post-Dinner (2 hr PPG) Has the patient experienced any low sugars since last contact? no denies symptoms of low blood glucose: sweaty, shaky, anxious, excessive hunger, confusion, lightheaded, nauseous, blurred vision Has the patient experienced any high sugars since last contact? yes - See above reports symptoms of high blood glucose: excessive thirst, frequent urination, fatigue Laboratory Results Lab Results Component Value Date BILITOT 0.4 11/20/2023 CALCIUM 10.4 11/20/2023 CO2 24 11/20/2023 CL 102 11/20/2023 CREATININE 0.69 11/20/2023 GLUCOSE 349 (H) 11/20/2023 ALKPHOS 269 (H) 11/20/2023 K 4.7 11/20/2023 PROT 7.8 11/20/2023 NA 135 (L) 11/20/2023 AST 110 (H) 11/20/2023 ALT 214 (H) 11/20/2023 BUN 16 11/20/2023 ANIONGAP 14 11/20/2023 MG 1.96 06/20/2023 PHOS 3.3 06/17/2023 GGT 194 (H) 11/20/2023 ALBUMIN 4.5 11/20/2023 LIPASE 62 08/31/2023 GFRF >90 12/19/2021 EGFR >90 11/20/2023 Lab Results Component Value Date TRIG 214 (H) 06/17/2023 CHOL 195 06/17/2023 HDL 30.3 06/17/2023 Lab Results Component Value Date HGBA1C 11.3 (H) 09/05/2023 Assessment/Plan Problem List Items Addressed This Visit New onset type 2 diabetes mellitus (Multi) General Patient Discussion BG still highly elevated- see patient reported values above Per BG values, appears patient needs additional lunch and dinnertime BG management Plan/Changes Continue all meds under the continuation of care with the referring provider and clinical pharmacy team Continue Lantus 56 units each morning as clarified above Change mealtime insulin Breakfast: Continue 10 units + SSI Lunch: Increase to 14 units + SSI Dinner: Increase to 14 units + SSI Next PCP Follow-Up 12/30/23 Next Clinical Pharmacy Follow-Up ~1 week BG evaluation Carri Power PharmD Verbal consent to manage patient's drug therapy was obtained from the patient. They were informed they may decline to participate or withdraw from participation in pharmacy services at any time. documented in this [facility] Work Phone: [phone]) 613-400607-22-2024 History of Present illness Narrative* Carri Power PharmD - 11/10/2023 4:30 PM EDT Pharmacy Post-Discharge Visit Anahi Dwyer is a 38 y.o. female who was referred to the Clinical Pharmacy Team to complete a post-discharge medication optimization and monitoring visit. The patient was referred for their Diabetes. Recent Hospitalization Admission Date: 08/31/23 Discharge Date: 09/03/23 Discharge Diagnosis: Hyperglycemia Referring Provider: Dr. Nicola Glez Preferred Pharmacy [facility] [address] [place] [id number] [facility] [address] [place] [id number] [address] Allergies Allergen Reactions Bee Venom Protein (Honey Bee) Anaphylaxis Lexapro [Escitalopram Oxalate] Palpitations Tachycardia Ultram [Tramadol] Palpitations Tachycardia Vicodin [Hydrocodone-Acetaminophen] Palpitations Tachycardia Lactose GI Upset DIABETES ASSESSMENT Diagnosed with Type 2 Diabetes May 2023. Patient was previously seeing a [facility] endocrinology provider, but has since switched- will be establishing (new patient visit) with [facility] power plant electrician. At last Clinical Pharmacy visit, increased patient's Lantus to 45 units once nightly (patient increased to 46 units). Patient presents today to evaluate BG values in light of changes to basal insulin. Current Diabetes Medication Regimen Lantus 46 units in the evening (6:30-7:30 pm) Humalog 10 units TID with meals + sliding scale Metformin ER 500 mg, 2 tablets BID Secondary Prevention Statin? No EMILY-I/ARB? No Aspirin? No Pertinent PMH Review: Not discussed due to time PMH of Pancreatitis: PMH of Retinopathy: PMH/FH of Medullary Thyroid Carcinoma or Multiple Endocrine Neoplasia Type 2: PMH of Urinary Tract Infections: Health Maintenance: Not discussed due to time Foot Exam: Eye Exam: Lipid Panel: Urine Albumin/Creatinine Ratio: DIET: Wake up (6:15-6:40 am) Breakfast (7-7:30 am): Banana Lunch (11 am-1 pm): Chicken, tineo beans Dinner (6:30 pm): Protein Bedtime (8:30 pm) EXERCISE: Patient is decently active, works at [employer] and is on her feet all day. Current monitoring regimen: Patient is using: continuous glucose monitor, Dexcom G7 Patient-Reported Blood Glucose: Dexcom Clarity data unavailable due to connectivity issues- this pharmacist and patient working with [employer] to resolve connection issues. Patient reports 321 mg/dL right now at time of visit (~4:30 pm) Reports AM FPG starting to dip into the 200s Late morning starts going up again into the 400s Has the patient experienced any low sugars since last contact? no denies symptoms of low blood glucose: sweaty, shaky, anxious, excessive hunger, confusion, lightheaded, nauseous, blurred vision Has the patient experienced any high sugars since last contact? yes - See above reports symptoms of high blood glucose: excessive thirst, frequent urination, fatigue Laboratory Results Lab Results Component Value Date BILITOT 0.4 09/03/2023 CALCIUM 8.5 (L) 09/03/2023 CO2 18 (L) 09/03/2023 CL 110 (H) 09/03/2023 CREATININE 0.76 09/03/2023 GLUCOSE 209 (H) 09/03/2023 ALKPHOS 207 (H) 09/03/2023 K 3.9 09/03/2023 PROT 6.4 09/03/2023 NA 135 (L) 09/03/2023 AST 182 (H) 09/03/2023 ALT 244 (H) 09/03/2023 BUN 11 09/03/2023 ANIONGAP 11 09/03/2023 MG 1.96 06/20/2023 PHOS 3.3 06/17/2023 ALBUMIN 3.7 09/03/2023 LIPASE 62 08/31/2023 GFRF >90 12/19/2021 EGFR >90 09/03/2023 Lab Results Component Value Date TRIG 214 (H) 06/17/2023 CHOL 195 06/17/2023 HDL 30.3 06/17/2023 Lab Results Component Value Date HGBA1C 11.3 (H) 09/05/2023 Assessment/Plan Problem List Items Addressed This Visit New onset type 2 diabetes mellitus (Multi) General Patient Discussion Still having connectivity issues with Dexcom- per patient report, since last visit, she notes her morning BG values have begun to dip into the 200s in the social research assistant as she is waking up. As the morning progresses, however, BG values are back in the 400s. Although DexcomClarity connection not active, per previous BG reports, patient's BG does dip overnight--Lantus dosing will likely be more effective if timed for AM administrations to pair half-life kinetics with patient's overnight decrease in BG. Patient also amenable to further increasing Lantus dosing- will increase by 20% Plan/Changes Continue all meds under the continuation of care with the referring provider and clinical pharmacy team Increase Lantus 55 units daily Take 15 units this PM Take 55 units tomorrow AM Next Clinical Pharmacy Follow-Up , 4:30 pm Carri Power PharmD Verbal consent to manage patient's drug therapy was obtained from the patient. They were informed they may decline to participate or withdraw from participation in pharmacy services at any time. documented in this [facility] Work Phone: [phone]) [phone] History of Present illness Narrative* Carri Power, PharmD - 11/04/2023 4:00 PM EDT Images from the original note were not included. Pharmacy Post-Discharge Visit Anahi Dwyer is a 37 y.o. female who was referred to the Clinical Pharmacy Team to complete a post-discharge medication optimization and monitoring visit. The patient was referred for their Diabetes. Recent Hospitalization Admission Date: 08/31/23 Discharge Date: 09/03/23 Discharge Diagnosis: Hyperglycemia Referring Provider: Dr. Nicola Glez Preferred Pharmacy [facility] [address] [place] [address] - [address] [place] [id number] [facility] [address] [place] [id number] [address] Allergies Allergen Reactions Bee Venom Protein (Honey Bee) Anaphylaxis Lexapro [Escitalopram Oxalate] Palpitations Tachycardia Ultram [Tramadol] Palpitations Tachycardia Vicodin [Hydrocodone-Acetaminophen] Palpitations Tachycardia Lactose GI Upset DIABETES ASSESSMENT Diagnosed with Type 2 Diabetes April/May 2023. Patient was previously seeing a [facility] endocrinology provider, but has since switched- will be establishing (new patient visit) with [facility] power plant electrician. At last Clinical Pharmacy visit, increased patient's Lantus to 38 units once nightly. Since last Clinical Pharmacy visit, patient connected her Dexcom to Dexcom Clarity--this pharmacist now able to view her BG values. Patient also missed her NPV with [facility] endocrinology team (Rustam Hoskins CNP). Patient presents today to evaluate BG values in light of changes to basal insulin. Current Diabetes Medication Regimen Lantus 38 units in the evening (6:30-7:30 pm) Humalog 10 units TID with meals + sliding scale Metformin ER 500 mg, 2 tablets BID Secondary Prevention Statin? No EMILY-I/ARB? No Aspirin? No Pertinent PMH Review: Not discussed due to time PMH of Pancreatitis: PMH of Retinopathy: PMH/FH of Medullary Thyroid Carcinoma or Multiple Endocrine Neoplasia Type 2: PMH of Urinary Tract Infections: Health Maintenance: Not discussed due to time Foot Exam: Eye Exam: Lipid Panel: Urine Albumin/Creatinine Ratio: DIET: Wake up (6:15-6:40 am) Breakfast (7-7:30 am): Banana Lunch (11 am-1 pm): Chicken, tineo beans Dinner (6:30 pm): Protein Bedtime (8:30 pm) EXERCISE: Patient is decently active, works at [employer] and is on her feet all day. Current monitoring regimen: Patient is using: continuous glucose monitor, [employer] G7 Patient-Reported Blood Glucose: Has the patient experienced any low sugars since last contact? no denies symptoms of low blood glucose: sweaty, shaky, anxious, excessive hunger, confusion, lightheaded, nauseous, blurred vision Has the patient experienced any high sugars since last contact? yes - See above reports symptoms of high blood glucose: excessive thirst, frequent urination, fatigue Laboratory Results Lab Results Component Value Date BILITOT 0.4 09/03/2023 CALCIUM 8.5 (L) 09/03/2023 CO2 18 (L) 09/03/2023 CL 110 (H) 09/03/2023 CREATININE 0.76 09/03/2023 GLUCOSE 209 (H) 09/03/2023 ALKPHOS 207 (H) 09/03/2023 K 3.9 09/03/2023 PROT 6.4 09/03/2023 NA 135 (L) 09/03/2023 AST 182 (H) 09/03/2023 ALT 244 (H) 09/03/2023 BUN 11 09/03/2023 ANIONGAP 11 09/03/2023 MG 1.96 06/20/2023 PHOS 3.3 06/17/2023 ALBUMIN 3.7 09/03/2023 LIPASE 62 08/31/2023 GFRF >90 12/19/2021 EGFR >90 09/03/2023 Lab Results Component Value Date TRIG 214 (H) 06/17/2023 CHOL 195 06/17/2023 HDL 30.3 06/17/2023 Lab Results Component Value Date HGBA1C 11.3 (H) 09/05/2023 Assessment/Plan Problem List Items Addressed This Visit New onset type 2 diabetes mellitus (Multi) General Patient Discussion Per Dexcom values, patient's BG runs excessively high throughout the entire day. Patient amenable to increasing Lantus further. Emphasized importance of rescheduling endocrinology appointment with [facility] provider Gagandeep Hoskins CNP. Plan/Changes Continue all meds under the continuation of care with the referring provider and clinical pharmacy team Increase Lantus to 45 units once daily in the evening Next PCP Follow-Up 12/30/23 Next Clinical Pharmacy Follow-Up ~1 week Evaluate BG Evaluate Lantus for morning vs. Evening administration timing. Carri Power PharmD Verbal consent to manage patient's drug therapy was obtained from the patient. They were informed they may decline to participate or withdraw from participation in pharmacy services at any time. documented in this [facility] Work Phone: [phone]) [phone] History of Present illness Narrative* Michelle Lambert CNP - 11/04/2023 12:41 PM EDT Images from the original note were not included. Behavioral Health Outpatient Progress Note Patient Name: Anahi Dwyer MR #: [id number] : 1985 Chief Complaint: Medication and symptom review/management Interval History: 11/04/2023 Patient presents for follow up exam. Last visit was on 07-28-23 and patient continues with Prozac and Abilify. Finished Vitamin D supplementation. Continues to work at [employer]- about 18 hours a week. Sees Neurology for management of Migraines- taking Topamax and migraines are well controlled. Anxiety: has improved, is doing ok, has had three panic attacks, mind races. Depression: mood is sad and hopeless. Fluctuates a lot. Irritability: low level. Focus/concentration: adequate Sleep has been affected by bilateral leg pain for the past 4 weeks. Fall asleep easily, will awakenbut will go right back to sleep, no nightmares, getting about 8 hours Appetite: decreased No anhedonia. Motivated. Aggressive behaviors: none Paranoia: none Risky behaviors: none Hypomanic/manic episodes: none AVH: denies Suicidal ideations/homicidal ideations: none Current stressors: lost permanent custody of her child twice with last date being 09-24-23. Found outthe news three weeks ago. Current psychotherapy: attends [facility] weekly Previous Visit: 07/28/2023 Patient presents for follow up exam. Last seen on 05-19-23 and patient continues with Prozac, Abilify, and Vitamin D. Sees Neurology for management of Migraines- taking Topamax and migraines are well controlled. Working at [employer] two days a week. Anxiety: has improved, no panic attacks, mind races about stressors. Depression: mood has improved with addition of Abilify. Mood not fluctuating. Irritability: low level except for high level of irritability towards the CPS as she felt as if shewas not treated right. Focus/concentration: adequate Sleep: falling asleep easily, gets up to to go to the bathroom and easily falls back asleep, no nightmares, gets about 10 hours on an average. No anhedonia. Has been more motivated lately. Aggressive behaviors: none Paranoia: none Risky behaviors: denies Hypomanic/manic episodes: denies AVH: none Suicidal ideations/homicidal ideations: denies Current stressors: CPS case- is appealing case to regain custody of her 3 year old daughter, finances, Current psychotherapy: trying to get back into [facility] with the help of her color artist, Madelyn. Current Medications: Outpatient Medications Prior to Visit Medication Sig Dispense Refill cyanocobalamin (B-12) 1000 MCG tablet Take 1 (one) tablet (1,000 mcg total) by mouth daily . insulin glargine (LANTUS) 100 unit/mL injection Inject 10 (ten) Units under the skin nightly . insulin lispro (AdmeLOG,HumaLOG) 100 unit/mL injection Inject 10 (ten) Units under the skin 3 (three) times a day before meals . loratadine 10 mg Tab 10 mg, pseudoePHEDrine 120 mg TbER 120 mg Take 10 mg by mouth daily . metFORMIN (GLUCOPHAGE-XR) 500 MG 24 hr tablet Take 2 (two) tablets (1,000 mg total) by mouth . minoxidiL (LONITEN) 2.5 MG tablet Take 1 (one) tablet (2.5 mg total) by mouth daily Take 1/2 tabletby mouth once daily. . Rezdiffra 80 mg Tab Take 80 mg by mouth daily . SUMAtriptan (IMITREX) 100 MG tablet One tab by mouth as needed for migraine. MAY repeat once in 2 hours if headaches persist. Max 2 pills per 24 hours; Max 2 days per week . 12 tablet 6 topiramate (TOPAMAX) 25 MG tablet Take 2 (two) tablets (50 mg total) by mouth 2 (two) times a day .360 tablet 3 ARIPiprazole (ABILIFY) 5 MG tablet Take 1 (one) tablet (5 mg total) by mouth daily . 30 tablet 3 ergocalciferol (ERGOCALCIFEROL) 1,250 mcg (50,000 unit) capsule Take 1 (one) capsule (50,000 Units total) by mouth once a week . 12 capsule 0 FLUoxetine (PROZAC) 20 MG capsule Take 1 (one) capsule (20 mg total) by mouth daily . 30 capsule 3 No facility-administered medications prior to visit. Lethality: Denies suicidal or homicidal ideations. Psychiatric ROS: Negative unless noted above. Review of Systems: Constitutional: Denies fever, chills, diaphoresis, malaise Eyes: Denies blurred vision, double vision ENT: Denies nasal congestion, sore throat, ear pain Neurological: Denies headache, photophobia, weakness, numbness CVS: Denies chest pain or palpitations Respiratory: Denies dyspnea or cough Musculoskeletal: Denies joint pain or muscle aches GI: Denies nausea, vomiting, constipation, or diarrhea : Denies urinary urgency, frequency, or burning Integumentary: Denies itching or rash Endocrine: Denies heat/cold intolerance or weight loss/weight gain Physical Exam: General: Alert and oriented to person, place, and time. Is in no acute distress. Well developed, hydrated, and nourished. Appears stated age. Skin: Skin is warm, dry and intact without rashes or lesions. Appropriate color for ethnicity. Nailbeds pink with no cyanosis or clubbing. Head: The head is normocephalic and atraumatic. Eyes: PERRLA Neck: Supple Respiratory: Respirations are non labored. Musculoskeletal: Active ROM in all four extremities. Neurological: Motor function is normal in upper and lower extremities. No gait abnormalities are appreciated. Vitals: 11/04/23 1301 BP: 110/73 BP Location: Left arm Patient Position: Sitting BP Cuff Size: Adult Pulse: 72 SpO2: 95% Weight: 82.6 kg (182 lb) Height: 5' 1 BMI 34.4 Mental Status Evaluation: General Appearance & Behavior: age appropriate, pleasant, cooperative, good eye contact Grooming & Hygiene: street clothes Psychomotor Activity: no psychomotor abnormalities or muscle atrophy noted Speech: normal rate, rhythym, volume, and spontaneity Flow of Thought: linear and goal directed Thought Associations: Intact Content of Thought: No evidence of suicidal ideations/homicidal ideations/psychosis Mood: Sad and hopeless Affect: mood congruent Insight: intact Judgment: intact Orientation: alert and oriented to person, place, time, and circumstances Memory: intact recent and remote Attention: intact Concentration: intact Language: fluent Fund of Knowledge: estimated average intelligence AIMS exam completed: No abnormal involuntary movements noted Assessment and Plan/Recommendations Diagnosis/Medications/Plan: Diagnoses and all orders for this visit: Mild episode of recurrent major depressive disorder (HCC)/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/JUANA (generalized anxiety disorder) PHQ-9: 5 indicating a mild level. JUANA-7: 4 indicating a mild level. Mood has been sad and hopeless since learning news that she lost custody of her child. Will opt to increase Prozac as discussed. Continue with Abilify. Self care activities advised: good sleep hygiene, daily exercise, and healthy eating. Pt advised to seek immediate assistance for any SI/HI or aggressive behaviors. Pt voiced understanding. Continue with therapy. - ARIPiprazole (ABILIFY) 5 MG tablet; Take 1 (one) tablet (5 mg total) by mouth daily . - FLUoxetine (PROZAC) 40 MG capsule; Take 1 (one) capsule (40 mg total) by mouth daily . PTSD (post-traumatic stress disorder) No nightmares. Vitamin D deficiency Will recheck level since patient has completed her supplementation. - Vitamin D, Total, 25-OH; Future Follow up in: Four weeks or sooner if needed -Chart reviewed. -OARRS reviewed. - Any available laboratory/imaging studies reviewed. - Past psychiatric history obtained. This patient is being prescribed one antipsychotic. Diagnostic work up including: BMI, blood pressure, hemoglobin A1c or blood glucose, TSH, and lipid panel have been completed in the past year performed within [facility] and available in EPIC. Glucose <126mg/dL, no indication of impaired glucose tolerance or insulin resistance in fasting or nonfasting state. *If the patient has been diagnosed with diabetes, they were made aware of the risk for weight gain,which may result in an increase in glucose/lipids. Diet and exercise is strongly recommended. The patient verbalized understanding of this warning and agrees to continue with plan. 07/28/2023 9:00 AM 11/04/2023 12:51 PM JUANA-7 JUANA-7 Score 13 4 07/28/2023 9:00 AM 11/04/2023 12:50 PM PHQ-9 PHQ-9 Total Score 11 5 Education: Continue medication as prescribed. Please report any side effects or intolerability of the medication. Report any new or worsening symptoms. Physical health: Maintain good physical health through exercise, adequate sleep, hydration, and well balanced meals. Avoid drug use, excess alcohol consumption, and use of nicotine. Psychotherapy: Talk about your mental health with a professional or other supportive people in yourlife. Work on social connections and interacting with others. Relaxation: Maintain a peaceful mind through relaxation techniques such as, meditation, mindfulness, yoga, stretching, and deep breathing exercises. Stay positive: Remember that you have things in your life to be thankful for. Gratitude is a way tokeep a positive mindset. Journaling your thoughts and feelings on paper can help release the mind of the daily stressors or negative thoughts that may be affecting your mental health. Try to journal 3 things you are thankful for or 3 positives that happened to you each day. Screen time/social media: Please try to limit your screen time of the phone, TV, or computer. Excessive or prolonged socia media can impact your mental health negatively. Spend time outdoors when possible. [place] has natural mood boosting qualities and may help improve feelings of anxiety, stress, and depression. Seek emergent help for any worsening of depression or thoughts of harming self or others. Recommend aerobic exercise, if physically able to do so. This includes, walking, hiking, running/jogging, cycling, swimming, skiing, or resistance training (upper and lower body). Please strive for aerobic exercise, 5-7 days per week. Increase time as tolerated, for a goal of at least 30-45 minutesper session. Treatment options and alternatives reviewed with patient. Risks, benefits, side effects of all psychiatric medications discussed with patient and informed consent obtained. All questions were answered. Goals: Improve and/or stabilize mood. Improve anxiety. Improve symptoms of depression. Improve sleep. Improve coping skills. Improve interpersonal skills. Prevent psychiatric hospitalization. Michelle Lambert CNP, PMHNP 11/04/2023 1:18 PM documented in this [id number] History of Present illness Narrative* Natalya Solorzano DPM - 10/29/2023 9:35 AM EDT Images from the original note were not included. NEW Patient Visit Natalya Solorzano DPM Patient Name: Anahi Dwyer. . Date of : 1985, 37 y.o.. Gender: female. Subjective: Patient is a pleasant 37-year-old female who presents to clinic for a comprehensive diabetic foot examination. Patient reports that she is experiencing throbbing pain that is extending from her legs down to her feet. Describes the pain as numbness tingling shooting pain. Denies any trauma or injury. Patient's most recent blood glucose is 390 mg/dL. States that she takes her medication but she forgets at times. She also reports that she is in middle of getting set up with a new power plant electrician (does not recall name). Additionally, patient is also complaining of being nauseous for weeks and states that she wishes she can vomit but is unable to do so. No other pedal complaints at this time. Denies fevers, chills, nausea, vomiting, chest pain, shortness of breath, or any other constitutional symptoms. Past Medical History: Diagnosis Date Diabetes mellitus (HCC) Heart disease Migraine Psychiatric disorder Past Surgical History: Procedure Laterality Date SECTION 2016 & 2019 CHOLECYSTECTOMY 2017 LIVER BIOPSY 06/20/2023 LIVER BIOPSY 06/20/2023 Social History Socioeconomic History Marital status: Tobacco Use Smoking status: Never Smokeless tobacco: Never Vaping Use Vaping status: Never Used Substance and Sexual Activity Alcohol use: Not Currently Drug use: Never Social Determinants of Health Financial Resource Strain: Medium Risk (09/03/2023) [facility] Overall Financial Resource Strain (CARDIA) Difficulty of Paying Living Expenses: Somewhat hard Food Insecurity: No Food Insecurity (09/05/2022) Received from [facility]ger Vital Sign Worried About Running Out of Food in the Last Year: Never true Ran Out of Food in the Last Year: Never true Transportation Needs: No Transportation Needs (09/03/2023) Received from [facility], [facility] PRAPARE - Transportation Lack of Transportation (Medical): No Lack of Transportation (Non-Medical): No Physical Activity: Insufficiently Active (08/31/2023) Received from [facility], [facility] Exercise Vital Sign Days of Exercise per Week: 1 day Minutes of Exercise per Session: 10 min Stress: Stress Concern Present (09/05/2022) Received from [facility] Occupational Health - Occupational Stress Questionnaire Feeling of Stress : Very much Social Connections: Moderately Integrated (09/05/2022) Received from [facility] Social Connection and Isolation Panel [NHANES] Frequency of Communication with Friends and Family: More than three times a week Frequency of Social Gatherings with Friends and Family: More than three times a week Attends Mu-Ism Services: More than 4 times per year Active Member of Clubs or Organizations: No Attends Club or Organization Meetings: Never Marital Status: Housing Stability: High Risk (09/03/2023) Received from [facility], [facility] Housing Stability Vital Sign Unable to Pay for Housing in the Last Year: Yes Number of Places Lived in the Last Year: 1 In the last 12 months, was there a time when you did not have a steady place to sleep or slept in [facility] (including now)?: No Physical Examination: BP 109/70 (BP Location: Left arm, Patient Position: Sitting, BP Cuff Size: Adult) Pulse 85 Temp98.7 F (37.1 C) (Infrared) LMP 09/24/2023 General Appearance: Alert, cooperative, no distress, appears stated age. Podiatric Exam Vascular: DP and PT pulses are palpable 2/4. Capillary refill time is less than 3 secs to distal digits. Skin temperature is warm to warm from proximal tibial tuberosity to distal digit. No appreciable edema to bilateral foot or ankle Neurological: Gross sensation is intact. Vibratory sensation is diminished. Protective sensation isdiminished using the [place] monofilament. Dermatologic: No open wounds or ulcers. Interdigital spaces are clean dry and intact. Musculoskeletal: No pain on palpation to bilateral foot or ankle. No gross deformities noted. Anklejoint range of motion is intact. Muscle strength is 5/5 to dorsiflexors, plantar flexors, invertersand everters. Compartments soft and compressible. No calf pain Diagnoses: 1. Hyperglycemia due to diabetes mellitus ([facility]) 2. Comprehensive diabetic foot examination, type 2 DM, encounter for ([facility]) 3. Diabetic peripheral neuropathy ([facility]) 4. Type 2 diabetes mellitus without complication, unspecified whether halfway insulin use ([facility]) Ambulatory referral to Podiatry Assessment/Plan: Patient was seen and evaluated. Discussed all clinical findings. A comprehensive diabetic foot examination was performed. Reviewed patient's hemoglobin A1c noted to be 11.3% on August 2023. Patient is hyperglycemic today, complaining of being nauseous for weeks and lightheadedness. Discussed with patient her diabetic medication and she reports that she forgets to take her medication at times. States that she is sometimes adjust for her insulin sliding scale but she appears to me to be somewhat confused or may not understand how to manage her medication. I called patient's primary care physician, Dr. Glez office, who is currently on vacation and her covering RED CROSS WORKER is unavailable. I have also reached out to Gagandeep Hoskins CNP, with endocrinology concerning this patient's hyperglycemia and possible diabetic ketoacidosis. He recommended that patient goes to the freestanding clinicfor evaluation and labs. Therefore, I contacted Dr. Aden at the emergency department regarding this patient. Patient will leave our office and her will take her across the street to the emergency department as instructed. Moreover, an urgent appointment was established with Gagandeep Hoskins CNP for All questions were answered to patient satisfaction. Patient understands to call with any questionsor concerns. This note was partially created using voice recognition software and is inherently subject to errors including those of syntax and sound-alike substitutions which may escape proofreading. In such instances, original meaning may be extrapolated by contextual derivation. Natalya Solorzano DPM, MS Podiatric Physician & Surgeon documented in this [id number] History of Present illness Narrative* Carri Power, PharmD - 10/28/2023 4:00 PM EDT Pharmacy Post-Discharge Visit Anahi Dwyer is a 37 y.o. female who was referred to the Clinical Pharmacy Team to complete a post-discharge medication optimization and monitoring visit. The patient was referred for their Diabetes. Recent Hospitalization Admission Date: 08/31/23 Discharge Date: 09/03/23 Discharge Diagnosis: Hyperglycemia Referring Provider: Dr. Nicola Glez [facility] [address] [place] [address] [address] [address] [address] [place] [id number] [address] Allergies Allergen Reactions Bee Venom Protein (Honey Bee) Anaphylaxis Lexapro [Escitalopram Oxalate] Palpitations Tachycardia Ultram [Tramadol] Palpitations Tachycardia Vicodin [Hydrocodone-Acetaminophen] Palpitations Tachycardia Lactose GI Upset DIABETES ASSESSMENT Diagnosed with Type 2 Diabetes April/May 2023. Patient was previously seeing a [facility] endocrinology provider, but has since switched- will be establishing (new patient visit) with [facility] power plant electrician later this week. Current Diabetes Medication Regimen Lantus 32 units in the evening (6:30-7:30 pm) Humalog 10 units TID with meals + sliding scale Metformin ER 500 mg, 2 tablets BID Secondary Prevention Statin? No EMILY-I/ARB? No Aspirin? No Pertinent PMH Review: Not discussed due to time PMH of Pancreatitis: PMH of Retinopathy: PMH/FH of Medullary Thyroid Carcinoma or Multiple Endocrine Neoplasia Type 2: PMH of Urinary Tract Infections: Health Maintenance: Not discussed due to time Foot Exam: Eye Exam: Lipid Panel: Urine Albumin/Creatinine Ratio: DIET: Not discussed due to time EXERCISE: Not discussed due to time Current monitoring regimen: Patient is using: continuous glucose monitor, DexHistogenics G7 Patient-Reported Blood Glucose: AM FPs-340s Throughout the day: can be in excess of 400 mg/dL Bedtime 210-300 Has the patient experienced any low sugars since last contact? no denies symptoms of low blood glucose: sweaty, shaky, anxious, excessive hunger, confusion, lightheaded, nauseous, blurred vision Has the patient experienced any high sugars since last contact? yes - See above reports symptoms of high blood glucose: excessive thirst, frequent urination, fatigue Diabetes Patient Education PATIENT GOALS Fasting B - 130 mg/dL 2-HR Postprandial BG: Less than 180 mg/dL A1c: Less than 6.5 % or 7.0 % Laboratory Results Lab Results Component Value Date BILITOT 0.4 09/03/2023 CALCIUM 8.5 (L) 09/03/2023 CO2 18 (L) 09/03/2023 CL 110 (H) 09/03/2023 CREATININE 0.76 09/03/2023 GLUCOSE 209 (H) 09/03/2023 ALKPHOS 207 (H) 09/03/2023 K 3.9 09/03/2023 PROT 6.4 09/03/2023 NA 135 (L) 09/03/2023 AST 182 (H) 09/03/2023 ALT 244 (H) 09/03/2023 BUN 11 09/03/2023 ANIONGAP 11 09/03/2023 MG 1.96 06/20/2023 PHOS 3.3 06/17/2023 ALBUMIN 3.7 09/03/2023 LIPASE 62 08/31/2023 GFRF >90 12/19/2021 EGFR >90 09/03/2023 Lab Results Component Value Date TRIG 214 (H) 06/17/2023 CHOL 195 06/17/2023 HDL 30.3 06/17/2023 Lab Results Component Value Date HGBA1C 11.3 (H) 09/05/2023 Assessment/Plan Problem List Items Addressed This Visit New onset type 2 diabetes mellitus (Multi) - Primary Relevant Medications insulin glargine (Lantus) 100 unit/mL (3 mL) pen insulin lispro (HumaLOG KwikPen Insulin) 100 unit/mL injection pen needle, diabetic 31 gauge x 15/64 needle General Patient Discussion Patient visited the ER yesterday for lightheadedness/dizziness related to hyperglycemia. Per CareEverywhere documentation, no concern for DKA despite BG in the 300s. Per patient, blood sugar consistently excessively high. At the time of this visit, patient's Dexcomwas 'unreadable' due to high BG. Patient also states she is completely out of insulin- per patient, not addressed at ER visit yesterday. Patient encouraged to go to ER due to unreadable BG per Dexcom and being out of insulin. Refills of insulin sent in to local [facility]- Lantus increased 20% to 38 units at bedtime. Sent patient Scimetrika message to connect to Diabetes DexcomClarity system to better inform insulin adjustments and allow for remote viewing. Patient will be following with [facility] Glaze Supervisor beginning later this week. Plan/Changes Continue all meds under the continuation of care with the referring provider and clinical pharmacy team Specialists: Patient currently sees outpatient endocrinology- establishing with [facility] power plant electrician this or Sunday 10/29 or 04/13. Increased Lantus 20% to 38 units at bedtime. Next Clinical Pharmacy Follow-Up ~1 week; will call patient tomorrow to check in. Carri Power PharmD Verbal consent to manage patient's drug therapy was obtained from the patient. They were informed they may decline to participate or withdraw from participation in pharmacy services at any time. documented in this [facility] Work Phone: [phone]) [phone] History of Present illness Narrative* Nicola Glez, DO - 09/25/2023 9:20 AM EDT Subjective Patient ID: Anahi Dwyer is a 37 y.o. female who presents for Follow-up (3 month). Diabetes She has type 2 diabetes mellitus. No MedicAlert identification noted. Hypoglycemia symptoms includeconfusion, sleepiness and sweats. Associated symptoms include blurred vision, fatigue, foot paresthesias, polydipsia, polyuria, visual change and weight loss. Risk factors for coronary artery diseaseinclude obesity and stress. Current diabetic treatment includes insulin injections. She is currently taking insulin pre-breakfast, pre-lunch, pre-dinner and at bedtime. Insulin injections are given by patient. Rotation sites for injection include the abdominal wall. Her weight is fluctuating minimally. She is following a diabetic diet. Meal planning includes avoidance of concentrated sweets. She has had a previous visit with a dietitian. She participates in exercise intermittently. She monitorsblood glucose at home 5+ x per day. She monitors urine at home <1 x per month. Blood glucose monitoring compliance is fair. Her home blood glucose trend is fluctuating minimally. Her breakfast blood glucose is taken between 5-6 am. Her breakfast blood glucose range is generally >200 mg/dl. Her lunch blood glucose is taken between 12-1 pm. Her lunch blood glucose range is generally >200 mg/dl. Her dinner blood glucose is taken between 3-4 pm. Her dinner blood glucose range is generally >200 mg/dl. Her overall blood glucose range is >200 mg/dl. She does not see a sorter packer.Eye exam is current. Patient is here today for 3 mo follow up Patient was in the hospital on 08/30 for severe abd pain, hyperglycemia. At time in the hospital herblood sugar was 505. Alk phos 249, ALT 218. MRCP showed hepatomegaly with hepatic steatosis. 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 Pt was sent home with marguerite. Supposed to start Rezdiffra this week. Following with Dr Quezada. Pt complains of RUQ pain radiating into the ack. Pt reports that she would like to change endocrinologists and she does not feel like she has a goodconnection with her current one. Review of Systems Constitutional: Positive for fatigue and weight loss. Eyes: Positive for blurred vision. Gastrointestinal: Positive for abdominal pain. Endocrine: Positive for polydipsia and polyuria. Psychiatric/Behavioral: Positive for confusion. Objective BP 110/71 Pulse 87 Ht 1.549 m (5' 1) Wt 84.4 kg (186 lb) BMI 35.14 kg/m Physical Exam Constitutional: General: She is not in acute distress. Appearance: Normal appearance. HENT: Head: Normocephalic. Nose: Nose normal. Mouth/Throat: Mouth: Mucous membranes are dry. Pharynx: No oropharyngeal exudate. Eyes: General: Right eye: No discharge. Left eye: No discharge. Extraocular Movements: Extraocular movements intact. Pupils: Pupils are equal, round, and reactive to light. Cardiovascular: Rate and Rhythm: Normal rate and regular rhythm. Heart sounds: No murmur heard. No gallop. Pulmonary: Effort: Pulmonary effort is normal. No respiratory distress. Breath sounds: Normal breath sounds. No wheezing. Abdominal: General: Bowel sounds are normal. There is no distension. Palpations: Abdomen is soft. Tenderness: There is abdominal tenderness. Musculoskeletal: General: No swelling. Normal range of motion. Skin: General: Skin is warm and dry. Coloration: Skin is not jaundiced. Neurological: General: No focal deficit present. Mental Status: She is alert and oriented to person, place, and time. Cranial Nerves: No cranial nerve deficit. Psychiatric: Mood and Affect: Mood normal. Behavior: Behavior normal. Assessment/Plan Problem List Items Addressed This Visit Depression PVC's (premature ventricular contractions) - Primary Vitamin D deficiency Diarrhea due to malabsorption (HHS-HCC) New onset type 2 diabetes mellitus (Multi) RESOLVED: Hyperglycemia Hepatic steatosis PTSD (post-traumatic stress disorder) Other Visit Diagnoses Type 2 diabetes mellitus without complication, without long-term current use of insulin (Multi) Relevant Medications metFORMIN XR (Glucophage-XR) 500 mg 24 hr tablet Other Relevant Orders Referral to Endocrinology Chronic RUQ pain, NAFLD, GERD, Ibs-D - had EGD done which showed mod abnormal mucosa in the stomach and antrum, gastritis - liver bx showed non alcoholic fatty liver with stage IV fibrosis - starting Rezdiffra this week -Continue Protonix - continue cholestyramine - bentyl prn 2. Uncontrolled DMII - next endo appt October 08, 2023 , asking for new referral - A1c increased to 7.3% from 6.1% -> 11.3% now - increase lantus 35 units at night - continue sliding scale -metformin 500mg po bid - call in 2 weeks with update blood sugars -Repeat A1c in 3 months 3. Thyroid tenderness and abnormal tsh -repeat tsh normal 08/30 2.34 -thyroid us normal 4. Depression and anxiety, stable - following with Psych 10/28/2023 -Continue Abilify 5 mg tablet daily - continue Prozac 20 mg capsule daily Final diagnoses: [E11.9] Type 2 diabetes mellitus without complication, without long-term current use of insulin (Multi) [I49.3] PVC's (premature ventricular contractions) [E11.9] New onset type 2 diabetes mellitus (Multi) [R73.9] Hyperglycemia [E55.9] Vitamin D deficiency [K90.9, R19.7] Diarrhea due to malabsorption (HHS-HCC) [K76.0] Hepatic steatosis [F33.42] Recurrent major depressive disorder, in full remission (CMS-HCC) [F43.10] PTSD (post-traumatic stress disorder) documented in this [facility] Work Phone: [phone]) 334-325705-15-2024 Nurse Note* Latoya Mcgill RN - 09/03/2023 3:19 PM EDT Discharge Note: 09/02/2023 Declines wheelchair, ambulates to private car accompanied by PCT, personal belongings taken with pt, no distress noted, no complaints voiced. Pt very complimentary of care. Adrianna RN [facility]05-15-2024 Nurse Note* Latoya Mcgill RN - 09/03/2023 3:19 PM EDT Discharge Note: 09/02/2023 Declines wheelchair, ambulates to private car accompanied by PCT, personal belongings taken with pt, no distress noted, no complaints voiced. Pt very complimentary of care. Adrianna RN * Latoya Mcgill RN - 09/03/2023 3:15 PM EDT Discharge Note: 09/03/2023 1500 AVS and pt responsibilities reviewed with pt and copy given. Hyperglycemia education reviewed with pt and information sheets given. Pt verbalizes understanding of instructions received, verbalizes understanding of when to seek medical attention, denies any home going or personal care needs. Denies further questions or concerns. Reviewed follow up appts with pt and verbalizes understanding. Adrianna RN [facility] Work Phone: 1(703) 337-286705-15-2024 Nurse Note* Latoya Mcgill RN - 09/03/2023 3:15 PM EDT Discharge Note: 09/03/2023 1500 AVS and pt responsibilities reviewed with pt and copy given. Hyperglycemia education reviewed with pt and information sheets given. Pt verbalizes understanding of instructions received, verbalizes understanding of when to seek medical attention, denies any home going or personal care needs. Denies further questions or concerns. Reviewed follow up appts with pt and verbalizes understanding. Adrianna WITT [facility] Work Phone: 1(664) 931-456205-15-2024 Hospital course Narrative* Annabel Peñaloza, TOOL DISPATCHER-RED CROSS WORKER - 09/03/2023 1:13 PM EDT Discharge Diagnosis Hyperglycemia Issues Requiring Follow-Up 1. MASH - Metabolic Dysfunction Associated Steatotohepatitis/abdominal pain 2. Chronic Dizziness. 3.IBS-chronic diarrhea 4.Anxiety/Depression Test Results Pending At Discharge Pending Labs No current pending labs. Hospital Course This is a 37-year-old female presented to ED for dizziness and uncontrolled hyperglycemia in the setting of known obesity, type 2 diabetes mellitus, migraines, GERD, depression, general anxiety disorder, EWING, transaminitis, chronic right upper quadrant pain. The ED her EKG was done. No acute findings. Her blood glucose was 505. She was not in DKA. Alkaline phosphatase 249, ALT 218, ALT 137. Baseline does appear similar to this. Flu RSV and COVID were negative. Dr. Quezada consulted -gastroenterology. Previous liver biopsy showed none alcoholic fatty liver with stage IV fibrosis. Treatment with Rezdiffra recommended. Prescription prior Auth pending. MRCP revealed hepatomegaly with hepatic steatosis, status post cholecystectomy without abnormal biliary ductal dilation. Patient will be sent home for a trial of Bentyl for her abdominal discomfort. Patient does have some chronic diarrhea/IBS symptoms. Uses cholestyramine with improvement of symptoms. Patient does also use Tylenol routinely for her abdominal pain. Advised against this. Patient does follow-up with gastroenterology at [facility]. Patient is a insulin-dependent diabetic. Appears to be poorly controlled. Recommend aggressive diabetes control with getting her A1c down below 7%. Patient does have an power plant electrician in [place]. Patient has very nonspecific vague complaint of dizziness. She did have CT brain as well as MRI. This revealed no acute process. Orthostats negative. She will be discharged with meclizine. Patient will be discharged home today in stable condition. 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 She is to have is transition of care visit withher primary care within 1 week. Pertinent Physical Exam At Time of Discharge Physical Exam Vitals and nursing note reviewed. Constitutional: Appearance: Normal appearance. HENT: Head: Normocephalic. Mouth/Throat: Mouth: Mucous membranes are moist. Pharynx: Oropharynx is clear. Eyes: Conjunctiva/sclera: Conjunctivae normal. Pupils: Pupils are equal, round, and reactive to light. Cardiovascular: Rate and Rhythm: Normal rate and regular rhythm. Pulses: Normal pulses. Heart sounds: Normal heart sounds. Pulmonary: Effort: Pulmonary effort is normal. Breath sounds: Normal breath sounds. Abdominal: General: Abdomen is flat. Bowel sounds are normal. Palpations: Abdomen is soft. Musculoskeletal: General: Normal range of motion. Cervical back: Normal range of motion and neck supple. Skin: General: Skin is warm and dry. Neurological: General: No focal deficit present. Mental Status: She is alert and oriented to person, place, and time. Psychiatric: Behavior: Behavior normal. Outpatient Follow-Up Future Appointments Date Time Provider Department Center 09/25/2023 9:20 AM Nicola Glez DO [email or web address] [facility] 11/13/2023 3:00 PM BENJAMIN Medina [id number] [place] 01/15/2024 9:00 AM Titi Quezada DO [id number] [facility] BENJAMIN Arce [facility] Work Phone: [phone]) 691-882805-15-2024 Hospital Discharge instructions* Discharge Instructions* BENJAMIN Arce - 09/03/2023 1:13 PM EDT Rezdiffra is in the process of a Prior Auth per your GI. Continue to use Bentyl for stomach pains. Avoid Use of Tylenol for pain. Follow up with your GI doctor at [facility] You will need better control of your DM. Follow up with your power plant electrician. * Attachments The following attachments cannot be sent through Care Everywhere. * High Blood Sugar, Adult ED ([place]) documented in this [facility] Work Phone: [phone] 123-734605-15-2024 History of Present illness Narrative* Candace Pierce RN - 09/03/2023 12:00 PM EDT Met with patient at bedside to discuss diabetic education and assess for needs. States she has a dexacom at home for blood glucose monitoring. Her changes it every 10 days. She denies any diabetic supply needs or education needs. Candace Pierce RN/TCC * Titi Quezada DO - 09/03/2023 11:56 AM EDT Anahi Dwyer is a 37 y.o. female on day 0 of admission presenting with Hyperglycemia. Subjective 37-year-old female status postcholecystectomy with right upper quadrant pain over 2 years. Known history of steatohepatitis with underlying fibrosis. Has been evaluated by hepatology at [facility]. Liver biopsy performed in May showing grade 2 steatosis. Currently being evaluated to begin Re zdiffra. Patient's pain is unchanged from prior evaluations outpatient. Would recommend advancing diet as tolerated. Can try antispasmodics. Would avoid narcotics. Recommend aggressive diabetes control keeping blood sugar at optimal levels A1c less than 7%. Follow-up with hepatology as outpatient begin therapy for steatohepatitis. Objective Physical Exam Last Recorded Vitals Blood pressure 101/66, pulse 57, temperature 36 C (96.8 F), temperature source Temporal, resp. rate16, height 1.549 m (5' 1), weight 84.9 kg (187 lb 2.7 oz), SpO2 95%. Intake/Output last 3 Shifts: I/O last 3 completed shifts: In: 2909.3 (34.3 mL/kg) [P.O.:428; I.V.:2481.3 (29.2 mL/kg)] Out: - (0 mL/kg) Weight: 84.9 kg Relevant Results MRCP pancreas w and wo IV contrast Result Date: 09/02/2023 Interpreted By: Amy Rojas, STUDY: MRCP PANCREAS W AND WO IV CONTRAST; 09/01/2023 3:38 pm INDICATION: Signs/Symptoms:RUQ pain. COMPARISON: CT dated 08/31/2023 ACCESSION NUMBER(S): [id number] ORDERING CLINICIAN: CHELSEA JON TECHNIQUE: Multiplanar multisequence T1 and T2 weighted images through the abdomen. 17 ml of Gadolinium contrast agent Dotarem were administered intravenously without immediate complication. FINDINGS: Motion degradation limits evaluation. Lower Chest: Clear. Liver: Hepatic steatosis. Hepatomegaly, liver measures 21 cm craniocaudally. Gallbladder and Biliary: Status post cholecystectomy. No abnormal CBD or intrahepatic biliary ductal dilatation. No choledocholithiasis or biliary stricture. Pancreas: No abnormality identified in the pancreas. Limited assessment fordetection of pancreatic divisum due to motion artifact. Spleen: No abnormality identified in the spleen. Adrenals: No abnormality identified in either adrenal gland. Urinary: No parenchymal abnormality identified in either kidney. No hydronephrosis. Gastrointestinal/Peritoneum: No small or large bowel obstruction in the visualized abdomen. In the abdomen, there is no extraluminal air. No significant free fluid. Vascular: Abdominal aorta is normal in caliber. Lymphatics: No enlarged lymph nodes by size criteria. MSK/Body Wall: No aggressive bony lesion identified. 1. Hepatomegaly with hepatic steatosis. 2. Cholecystectomy without abnormal biliary ductal dilatation. Signed by: Amy Rojas 09/02/2023 4:46 PM Dictation workstation: [id number] MR brain wo IV contrast Result Date: 09/01/2023 Interpreted By: Bar Mckinley and Dervishi Mario STUDY: MR BRAIN WO IV CONTRAST; 09/01/2023 10:38 am INDICATION: Signs/Symptoms:dizziness. COMPARISON: CT head: 08/31/2023 ACCESSION NUMBER(S): [id number] ORDERING CLINICIAN: CHECO MO TECHNIQUE: Axial T2, FLAIR, DWI, gradient echo T2 and sagittal andcoronal T1 weighted images of brain were acquired. FINDINGS: The ventricles, sulci and basal cisterns are within normal limits. There is no extra-axial fluid collections. Diffusion-weighted imaging demonstrates no diffusion restriction abnormality to suggest an acute infarct. No focal parenchymal signal abnormality. No mass effect or midline shift Visualized paranasal sinuses and mastoid air cells are clear. No evidence of restricted diffusion to suggest recent ischemia. I personally reviewed the images/study and I agree with the findings as stated by Resident Ga Lagunas MD. This study was interpreted at [place], [place]. MACRO: None Signed by: Bar Mckinley 09/01/2023 6:00 PM Dictation workstation: [id number] ECG 12 Lead Result Date: 09/01/2023 Normal sinus rhythm Cannot rule out Inferior infarct (cited on or before 16-JUN-2023) Abnormal ECG When compared with ECG of 16-JUN-2023 16:55, No significant change was found CT abdomen pelvis w IV contrast Result Date: 08/31/2023 Interpreted By: Miky Mccann, STUDY: CT ABDOMEN PELVIS W IV CONTRAST; 08/31/2023 12:09 pm INDICATION: Signs/Symptoms:RUQ abd pain. COMPARISON: 06/16/2023. ACCESSION NUMBER(S): [id number] ORDERING CLINICIAN: HOLLEY GARNER TECHNIQUE: Contiguous axial images were obtained through the abdomen and pelvis after the administration of 69 mL Omnipaque 350 intravenous contrast. Coronal and sagittal reformations were made. FINDINGS: LOWER CHEST: Lung bases are clear. ABDOMEN: LIVER: Liver is enlarged measuring 20 cm in craniocaudal dimension. Diffuse fatty infiltration of the liver is again seen. BILE DUCTS: Nondilated. GALLBLADDER: Surgically absent. PANCREAS: Within normal limits. SPLEEN: Within normal limits. ADRENAL GLANDS: Within normal limits. KIDNEYS AND URETERS: The kidneys enhance symmetrically without focal lesion. No hydroureteronephrosis bilaterally. Urinary bladder is unremarkable. VESSELS: There is no aneurysmal dilatation of the abdominal aorta. The IVC is within normal limits. BOWEL: No bowel obstruction. Appendix is normal. No focal diverticular disease. PERITONEUM/RETROPERITONEUM/LYMPH NODES: No ascites or free air, no fluid collection. No retroperitoneal fluid collection or lymphadenopathy. ABDOMINAL WALL: Unremarkable. BONE AND SOFT TISSUE: There is L5 left unilateral spondylolysis without spondylolisthesis. Hepatomegaly and diffuse fatty infiltration of the liver. Previous cholecystectomy. No biliary dilation. Normal appendix. No bowel obstruction. MACRO: None. Signed by: Miky Mccann 08/31/2023 12:25 PM Dictation workstation: [id number] CT head wo IV contrast Result Date: 08/31/2023 Interpreted By: Miky Mccann, STUDY: CT HEAD WO IV CONTRAST; 08/31/2023 12:09 pm INDICATION: Signs/Symptoms:dizziness. COMPARISON: None. ACCESSION NUMBER(S): [id number] ORDERING CLINICIAN: HOLLEY GARNER TECHNIQUE: Contiguous unenhanced axial images were obtained through the brain. FINDINGS: INTRACRANIAL: No acute intracranial bleed, midline shift, or mass effect is seen. Swanson-white differentiation is maintained. No extra-axial fluid collection or hydrocephalus. Bones are intact. EXTRACRANIAL: Visualized paranasal sinuses and mastoids are clear. No acute intracranial process. MACRO: None. Signed by: Miky Mccann 08/31/2023 12:17 PM Dictation workstation: [id number] * Cannot find OR log * Last relevant procedure: Assessment/Plan Principal Problem: Hyperglycemia Steatohepatitis with fibrosis. Right upper quadrant pain secondary to above. No evidence of any worsening liver injury by CT scan or lab work. Recommend follow- up with hepatology as outpatient to begin Chiaraffra. Tight glycemic control with goal A1c less than 7%. Can try antispasmodics for pain. Resume cholestyramine which relieves the hospital control diarrhea. I spent 15 minutes in the professional and overall care of this patient. Titi Quezada DO * Yany Mendez RN - 09/03/2023 11:42 AM EDT 09/03/23 1142 Discharge Planning Living Arrangements Spouse/significant other Support Systems Spouse/significant other;Children Assistance Needed None Type of Residence Private residence Number of Stairs to Enter Residence 3 Number of Stairs Within Residence 0 Do you have animals or pets at home? No Who is requesting discharge planning? Provider Home or Post Acute Services None Patient expects to be discharged to: home Does the patient need discharge transport arranged? No RoundTrip coordination needed? No Has discharge transport been arranged? No Financial Resource Strain How hard is it for you to pay for the very basics like food, housing, medical care, and heating? Somewhat Housing Stability In the last 12 months, was there a time when you were not able to pay the mortgage or rent on time?Y In the last 12 months, how many places have you lived? 1 In the last 12 months, was there a time when you did not have a steady place to sleep or slept in ashelter (including now)? N Transportation Needs In the past 12 months, has lack of transportation kept you from medical appointments or from getting medications? no In the past 12 months, has lack of transportation kept you from meetings, work, or from getting things needed for daily living? No With pt at bedside reviewed discharge plan. Pt denies any changes. She drove herself to the hospital and will be driving self home denies other needs and feels safe. CT to follow. Yany Mendez BSN/RN-TCC * Amina Norris APRN-CORINA - 09/02/2023 3:28 PM EDT Anahi Dwyer is a 37 y.o. female on day 0 of admission presenting with Hyperglycemia. Subjective Patient is seen and examined at bedside. Reports abdominal pain in the right upper and left upper quadrants. Reports intermittent nausea. Had MRCP done this morning pending results Objective Physical Exam Skin: skin color pink, warm, and dry; no suspicious rashes or lesions Eyes : PERRL, EOM's intact ENT: mucous membranes pink and moist Neck: normocephalic Respiratory: lungs clear to auscultation anteriorly; no wheezing, rhonchi, or crackles. Heart: regular rate and rhythm. Abdomen: Nondistended, positive bowel sounds x4, soft, tender Extremities: no edema Peripheral pulses: normal x4 extremities Neuro: alert, coherent and conversant, no focal motor deficits Last Recorded Vitals Blood pressure 101/66, pulse 57, temperature 36 C (96.8 F), temperature source Temporal, resp. rate16, height 1.549 m (5' 1), weight 84.9 kg (187 lb 2.7 oz), SpO2 95%. Intake/Output last 3 Shifts: I/O last 3 completed shifts: In: 4169.2 (49.1 mL/kg) [P.O.:310; I.V.:3859.2 (45.5 mL/kg)] Out: 200 (2.4 mL/kg) [Urine:200 (0.1 mL/kg/hr)] Weight: 84.9 kg Relevant Results Scheduled medications ARIPiprazole, 5 mg, oral, Daily cholestyramine light, 4 g, oral, BID cyanocobalamin, 1,000 mcg, oral, Daily FLUoxetine, 20 mg, oral, Daily insulin glargine, 32 Units, subcutaneous, q24h insulin lispro, 0-5 Units, subcutaneous, TID pantoprazole, 40 mg, oral, Daily before breakfast polyethylene glycol, 17 g, oral, Daily topiramate, 50 mg, oral, BID Continuous medications sodium chloride 0.9%, 75 mL/hr, Last Rate: 75 mL/hr (09/02/23 1437) PRN medications PRN medications: acetaminophen OR acetaminophen OR acetaminophen, acetaminophen OR acetaminophen OR acetaminophen, benzocaine-menthol, dextrose, dextrose, glucagon, glucagon, meclizine, morphine, morphine, ondansetron ODT OR ondansetron MR brain wo IV contrast Result Date: 09/01/2023 Interpreted By: Bar Mckinley, and Bebo Koroma STUDY: MR BRAIN WO IV CONTRAST; 09/01/2023 10:38 am INDICATION: Signs/Symptoms:dizziness. COMPARISON: CT head: 08/31/2023 ACCESSION NUMBER(S): [id number] ORDERING CLINICIAN: CHECO MO TECHNIQUE: Axial T2, FLAIR, DWI, gradient echo T2 and sagittal andcoronal T1 weighted images of brain were acquired. FINDINGS: The ventricles, sulci and basal cisterns are within normal limits. There is no extra-axial fluid collections. Diffusion-weighted imaging demonstrates no diffusion restriction abnormality to suggest an acute infarct. No focal parenchymal signal abnormality. No mass effect or midline shift Visualized paranasal sinuses and mastoid air cells are clear. No evidence of restricted diffusion to suggest recent ischemia. I personally reviewed the images/study and I agree with the findings as stated by Resident Ga Lagunas MD. This study was interpreted at [place], [place]. MACRO: None Signed by: Bar Mckinley 09/01/2023 6:00 PM Dictation workstation: [id number] Results for orders placed or performed during the hospital encounter of 08/31/23 (from the past 24 hour(s)) POCT GLUCOSE Result Value Ref Range POCT Glucose 134 (H) 74 - 99 mg/dL POCT GLUCOSE Result Value Ref Range POCT Glucose 220 (H) 74 - 99 mg/dL Vitamin B12 Result Value Ref Range Vitamin B12 512 211 - 911 pg/mL CBC Result Value Ref Range WBC 5.8 4.4 - 11.3 x10*3/uL nRBC 0.0 0.0 - 0.0 /100 WBCs RBC 4.86 4.00 - 5.20 x10*6/uL Hemoglobin 13.8 12.0 - 16.0 g/dL Hematocrit 43.9 36.0 - 46.0 % MCV 90 80 - 100 fL MCH 28.4 26.0 - 34.0 pg MCHC 31.4 (L) 32.0 - 36.0 g/dL RDW 12.2 11.5 - 14.5 % Platelets 184 150 - 450 x10*3/uL Comprehensive Metabolic Panel Result Value Ref Range Glucose 181 (H) 74 - 99 mg/dL Sodium 137 136 - 145 mmol/L Potassium 3.7 3.5 - 5.3 mmol/L Chloride 110 (H) 98 - 107 mmol/L Bicarbonate 21 21 - 32 mmol/L Anion Gap 10 10 - 20 mmol/L Urea Nitrogen 7 6 - 23 mg/dL Creatinine 0.75 0.50 - 1.05 mg/dL eGFR >90 >60 mL/min/1.73m*2 Calcium 8.7 8.6 - 10.3 mg/dL Albumin 3.9 3.4 - 5.0 g/dL Alkaline Phosphatase 223 (H) 33 - 110 U/L Total Protein 6.6 6.4 - 8.2 g/dL AST 194 (H) 9 - 39 U/L Bilirubin, Total 0.5 0.0 - 1.2 mg/dL ALT 253 (H) 7 - 45 U/L POCT GLUCOSE Result Value Ref Range POCT Glucose 166 (H) 74 - 99 mg/dL POCT GLUCOSE Result Value Ref Range POCT Glucose 193 (H) 74 - 99 mg/dL Assessment/Plan Principal Problem: Hyperglycemia This is a 37-year-old female admitted for dizziness and uncontrolled hyperglycemia in the setting of known obesity, type 2 diabetes mellitus, migraines, GERD, depression, general anxiety disorder, EWING, transaminitis, chronic right upper quadrant pain. Dizziness -MRI of the brain results pending -Dizziness improving -Continue meclizine as needed Diabetes mellitus -Blood sugars have improved with IV hydration -Continue Lantus 32 units subcu daily -Continue with sliding scale -Patient does follow-up with endocrinology as outpatient -Most recent hemoglobin A1c is 8.4 -IV fluids stopped today. MASH - Metabolic Dysfunction Associated Steatotohepatitis/abdominal pain -Gastroenterology consulted, recommendations appreciated -Patient has known transaminitis -History of negative hepatitis panel, neg PAULETTE, neg SMA, -Recent INR is 1.2 -Patient did have liver biopsy -Patient is to be starting a new medication called Aric and working with receptionist telephone operator regarding this new medication to help reverse scarring in the liver. -MRCP done this morning, pending results. Patient does admit to having unintentional weight loss, itching and night sweats. And has significant pain to the right upper quadrant that seems disproportionate to the Dx of MASH. GERD -Continue Protonix Constipation -Continue MiraLAX Migraine prophylaxis -Continue Topamax Depression/anxiety -Continue Abilify, Prozac Full code Anticipate discharge in the next 24 to 48 hours. Patient will be home with no needs. I spent 35 minutes in the professional and overall care of this patient. Amina Norris APRN-RED CROSS WORKER * Chelsea Jon PA-C - 09/01/2023 1:50 PM EDT Anahi Dwyer is a 37 y.o. female on day 0 of admission presenting with Hyperglycemia. Subjective Patient is seen and examined at bedside. Patient continues to have right upper quadrant abdominal pain. Patient states the abdominal pain radiates across to the left side and will radiate to her back. She is nauseated slightly. Patient has been dealing with this pain for approximately 6 months now.Patient does have history of cholecystectomy. Objective Physical Exam Skin: skin color pink, warm, and dry; no suspicious rashes or lesions Eyes : PERRL, EOM's intact ENT: mucous membranes pink and moist Neck: normocephalic Respiratory: lungs clear to auscultation anteriorly; no wheezing, rhonchi, or crackles. Heart: regular rate and rhythm. Abdomen: Nondistended, positive bowel sounds x4, soft, tender Extremities: no edema Peripheral pulses: normal x4 extremities Neuro: alert, coherent and conversant, no focal motor deficits Last Recorded Vitals Blood pressure 104/67, pulse 54, temperature 35.7 C (96.3 F), temperature source Temporal, resp. rate 16, height 1.549 m (5' 1), weight 84.9 kg (187 lb 2.7 oz), SpO2 97%. Intake/Output last 3 Shifts: I/O last 3 completed shifts: In: 1000 (11.8 mL/kg) [IV Piggyback:1000] Out: 200 (2.4 mL/kg) [Urine:200 (0.1 mL/kg/hr)] Weight: 84.9 kg Relevant Results Scheduled medications ARIPiprazole, 5 mg, oral, Daily cholestyramine light, 4 g, oral, BID cyanocobalamin, 1,000 mcg, oral, Daily FLUoxetine, 20 mg, oral, Daily insulin glargine, 32 Units, subcutaneous, q24h insulin lispro, 0-5 Units, subcutaneous, TID with meals pantoprazole, 40 mg, oral, Daily before breakfast polyethylene glycol, 17 g, oral, Daily topiramate, 50 mg, oral, BID Continuous medications sodium chloride 0.9%, 125 mL/hr, Last Rate: 125 mL/hr (09/01/23 0931) PRN medications PRN medications: acetaminophen OR acetaminophen OR acetaminophen, acetaminophen OR acetaminophen OR acetaminophen, benzocaine-menthol, dextrose, dextrose, glucagon, glucagon, meclizine, morphine, morphine, ondansetron ODT OR ondansetron ECG 12 Lead Result Date: 09/01/2023 Normal sinus rhythm Cannot rule out Inferior infarct (cited on or before 16-JUN-2023) Abnormal ECG When compared with ECG of 16-JUN-2023 16:55, No significant change was found CT abdomen pelvis w IV contrast Result Date: 08/31/2023 Interpreted By: Miky Mccann, STUDY: CT ABDOMEN PELVIS W IV CONTRAST; 08/31/2023 12:09 pm INDICATION: Signs/Symptoms:RUQ abd pain. COMPARISON: 06/16/2023. ACCESSION NUMBER(S): [id number] ORDERING CLINICIAN: HOLLEY GARNER TECHNIQUE: Contiguous axial images were obtained through the abdomen and pelvis after the administration of 69 mL Omnipaque 350 intravenous contrast. Coronal and sagittal reformations were made. FINDINGS: LOWER CHEST: Lung bases are clear. ABDOMEN: LIVER: Liver is enlarged measuring 20 cm in craniocaudal dimension. Diffuse fatty infiltration of the liver is again seen. BILE DUCTS: Nondilated. GALLBLADDER: Surgically absent. PANCREAS: Within normal limits. SPLEEN: Within normal limits. ADRENAL GLANDS: Within normal limits. KIDNEYS AND URETERS: The kidneys enhance symmetrically without focal lesion. No hydroureteronephrosis bilaterally. Urinary bladder is unremarkable. VESSELS: There is no aneurysmal dilatation of the abdominal aorta. The IVC is within normal limits. BOWEL: No bowel obstruction. Appendix is normal. No focal diverticular disease. PERITONEUM/RETROPERITONEUM/LYMPH NODES: No ascites or free air, no fluid collection. No retroperitoneal fluid collection or lymphadenopathy. ABDOMINAL WALL: Unremarkable. BONE AND SOFT TISSUE: There is L5 left unilateral spondylolysis without spondylolisthesis. Hepatomegaly and diffuse fatty infiltration of the liver. Previous cholecystectomy. No biliary dilation. Normal appendix. No bowel obstruction. MACRO: None. Signed by: Miky Mccann 08/31/2023 12:25 PM Dictation workstation: [id number] CT head wo IV contrast Result Date: 08/31/2023 Interpreted By: Miky Mccann, STUDY: CT HEAD WO IV CONTRAST; 08/31/2023 12:09 pm INDICATION: Signs/Symptoms:dizziness. COMPARISON: None. ACCESSION NUMBER(S): [id number] ORDERING CLINICIAN: HOLLEY GARNER TECHNIQUE: Contiguous unenhanced axial images were obtained through the brain. FINDINGS: INTRACRANIAL: No acute intracranial bleed, midline shift, or mass effect is seen. Swanson-white differentiation is maintained. No extra-axial fluid collection or hydrocephalus. Bones are intact. EXTRACRANIAL: Visualized paranasal sinuses and mastoids are clear. No acute intracranial process. MACRO: None. Signed by: Miky Mccann 08/31/2023 12:17 PM Dictation workstation: [id number] Results for orders placed or performed during the hospital encounter of 08/31/23 (from the past 24 hour(s)) ECG 12 Lead Result Value Ref Range Ventricular Rate 75 BPM Atrial Rate 75 BPM MT Interval 138 ms QRS Duration 82 ms QT Interval 376 ms QTC Calculation(Bazett) 419 ms P Elgin 8 degrees R Elgin 55 degrees T Elgin 7 degrees QRS Count 12 beats Q Onset 217 ms P Onset 148 ms P Offset 197 ms T Offset 405 ms QTC Fredericia 404 ms POCT GLUCOSE Result Value Ref Range POCT Glucose 250 (H) 74 - 99 mg/dL TSH Result Value Ref Range Thyroid Stimulating Hormone 2.34 0.44 - 3.98 mIU/L Influenza A, and B PCR Result Value Ref Range Flu A Result Not Detected Not Detected Flu B Result Not Detected Not Detected Sars-CoV-2 PCR Result Value Ref Range Coronavirus 2019, PCR Not Detected Not Detected RSV PCR Result Value Ref Range RSV PCR Not Detected Not Detected CBC Result Value Ref Range WBC 5.8 4.4 - 11.3 x10*3/uL nRBC 0.0 0.0 - 0.0 /100 WBCs RBC 4.55 4.00 - 5.20 x10*6/uL Hemoglobin 13.2 12.0 - 16.0 g/dL Hematocrit 40.9 36.0 - 46.0 % MCV 90 80 - 100 fL MCH 29.0 26.0 - 34.0 pg MCHC 32.3 32.0 - 36.0 g/dL RDW 12.3 11.5 - 14.5 % Platelets 175 150 - 450 x10*3/uL Comprehensive metabolic panel Result Value Ref Range Glucose 202 (H) 74 - 99 mg/dL Sodium 136 136 - 145 mmol/L Potassium 3.7 3.5 - 5.3 mmol/L Chloride 110 (H) 98 - 107 mmol/L Bicarbonate 21 21 - 32 mmol/L Anion Gap 9 (L) 10 - 20 mmol/L Urea Nitrogen 13 6 - 23 mg/dL Creatinine 0.64 0.50 - 1.05 mg/dL eGFR >90 >60 mL/min/1.73m*2 Calcium 7.9 (L) 8.6 - 10.3 mg/dL Albumin 3.5 3.4 - 5.0 g/dL Alkaline Phosphatase 198 (H) 33 - 110 U/L Total Protein 5.9 (L) 6.4 - 8.2 g/dL AST 163 (H) 9 - 39 U/L Bilirubin, Total 0.5 0.0 - 1.2 mg/dL ALT 198 (H) 7 - 45 U/L Protime-INR Result Value Ref Range Protime 13.1 (H) 9.8 - 12.8 seconds INR 1.2 (H) 0.9 - 1.1 POCT GLUCOSE Result Value Ref Range POCT Glucose 135 (H) 74 - 99 mg/dL Assessment/Plan Principal Problem: Hyperglycemia This is a 37-year-old female admitted for dizziness and uncontrolled hyperglycemia in the setting of known obesity, type 2 diabetes mellitus, migraines, GERD, depression, general anxiety disorder, EWING, transaminitis, chronic right upper quadrant pain. Dizziness -MRI of the brain results pending -Dizziness seems to have improved some today. -Continue meclizine as needed Diabetes mellitus -Blood sugars have improved with IV hydration -Continue Lantus 32 units subcu daily -Continue with sliding scale -Patient does follow-up with endocrinology as outpatient -Most recent hemoglobin A1c is 8.4 -Continue IV fluids at a lower rate 75 MLS per hour [facility] - Metabolic Dysfunction Associated Steatotohepatitis -Patient does follow with GI and hepatology -Patient has known transaminitis -History of negative hepatitis panel, neg PAULETTE, neg SMA, -Recent INR is 1.2 -Patient did have liver biopsy -Patient is to be starting a new medication called Rezdiffra and working with receptionist telephone operator regarding this new medication to help reverse scarring in the liver. -Order MRCP to rule out other possible etiologies. Patient does admit to having unintentional weight loss, itching and night sweats. And has significant pain to the right upper quadrant that seems disproportionate to the Dx of MASH. -Patient has seen Dr. Quezada in the past. Patient's pain seems to be getting worse progressively over the past 8 months. She states her pain is now an 8 out of 10 and the pain radiates to the left & right side of her abdomen & to the back. Consult GI GERD -Continue Protonix Constipation -Continue MiraLAX Migraine prophylaxis -Continue Topamax Depression/anxiety -Continue Abilify, Prozac Full code Anticipate discharge in the next 24 to 48 hours. Patient will be home with no needs. I spent 35 minutes in the professional and overall care of this patient. Chelsea Jon PA-C * Candace Pierce RN - 09/01/2023 10:52 AM EDT 09/01/23 1326 Discharge Planning Living Arrangements Spouse/significant other Support Systems Spouse/significant other;Children Assistance Needed None Type of Residence Private residence Number of Stairs to Enter Residence 3 Number of Stairs Within Residence 0 Do you have animals or pets at home? No Who is requesting discharge planning? Provider Home or Post Acute Services None Patient expects to be discharged to: Home Does the patient need discharge transport arranged? Yes RoundTrip coordination needed? No Has discharge transport been arranged? No Financial Resource Strain How hard is it for you to pay for the very basics like food, housing, medical care, and heating? Somewhat Housing Stability In the last 12 months, was there a time when you were not able to pay the mortgage or rent on time?Y In the last 12 months, how many places have you lived? 1 In the last 12 months, was there a time when you did not have a steady place to sleep or slept in ashelter (including now)? N Transportation Needs In the past 12 months, has lack of transportation kept you from medical appointments or from getting medications? no In the past 12 months, has lack of transportation kept you from meetings, work, or from getting things needed for daily living? No Care Transitions: Patient reviewed in care round meeting this AM. ADOD 24-48 hours. Met with patient at bedside. Demographics and contacts verified. Lives in a one story with spouse and children ages7 and 3[address] Glez. Her pharmacy of choice is [facility] in [place] for prescription needs. She is independent at home with ADL's and still drives self. Denies the need for any DME or diabetic supplies. Discussed discharge plans; states she will return home and denies any needs. Care team to follow. Candace Pierce RN/TCC [facility] Phone: 1(615) 127-971305-15-2024 Plan of care note* Care Plan - Radha Plummer RN - 09/03/2023 6:55 AM EDT The patient's goals for the shift include get better feel better The clinical goals for the shift include Tolerate diet with no n/v labs wdl, tolerate diet, controlpain [facility]05-15-2024 Miscellaneous Notes* Care Plan - Radha Plummer RN - 09/03/2023 6:55 AM EDT The patient's goals for the shift include get better feel better The clinical goals for the shift include Tolerate diet with no n/v labs wdl, tolerate diet, controlpain * Care Plan - Heather Escalante RN - 09/03/2023 1:58 AM EDT The patient's goals for the shift include get better The clinical goals for the shift include Tolerate diet with no n/v Problem: Psychosocial Needs Goal: Collaborate with me, my family, and caregiver to identify my specific goals Outcome: Progressing Problem: Discharge Barriers Goal: My discharge needs are met Outcome: Progressing Problem: Nutrition Goal: Oral intake greater 75% Outcome: Progressing Goal: Adequate PO fluid intake Outcome: Progressing Goal: BG 80-180 mg/dL Outcome: Progressing Goal: Electrolytes WNL Outcome: Progressing Problem: Pain - Adult Goal: Verbalizes/displays adequate comfort level or baseline comfort level Outcome: Progressing Problem: Safety - Adult Goal: Free from fall injury Outcome: Progressing Problem: Discharge Planning Goal: Discharge to home or other facility with appropriate resources Outcome: Progressing Problem: Chronic Conditions and Co-morbidities Goal: Patient's chronic conditions and co-morbidity symptoms are monitored and maintained or improved Outcome: Progressing Problem: Diabetes Goal: Achieve decreasing blood glucose levels by end of shift Outcome: Progressing Goal: Increase stability of blood glucose readings by end of shift Outcome: Progressing Goal: Decrease in ketones present in urine by end of shift Outcome: Progressing Goal: Maintain electrolyte levels within acceptable range throughout shift Outcome: Progressing Goal: Maintain glucose levels >70mg/dl to <250mg/dl throughout shift Outcome: Progressing Goal: No changes in neurological exam by end of shift Outcome: Progressing Goal: Learn about and adhere to nutrition recommendations by end of shift Outcome: Progressing Goal: Vital signs within normal range for age by end of shift Outcome: Progressing Goal: Increase self care and/or family involovement by end of shift Outcome: Progressing Goal: Receive DSME education by end of shift Outcome: Progressing Problem: Pain Goal: Takes deep breaths with improved pain control throughout the shift Outcome: Progressing Goal: Turns in bed with improved pain control throughout the shift Outcome: Progressing Goal: Walks with improved pain control throughout the shift Outcome: Progressing Goal: Performs ADL's with improved pain control throughout shift Outcome: Progressing Goal: Participates in PT with improved pain control throughout the shift Outcome: Progressing Goal: Free from opioid side effects throughout the shift Outcome: Progressing Goal: Free from acute confusion related to pain meds throughout the shift Outcome: Progressing * Care Plan - Heather Escalante RN - 09/01/2023 11:51 PM EDT The patient's goals for the shift include get better The clinical goals for the shift include Tolerated full liquids and to advance diet. Problem: Psychosocial Needs Goal: Collaborate with me, my family, and caregiver to identify my specific goals Outcome: Progressing Problem: Discharge Barriers Goal: My discharge needs are met Outcome: Progressing Problem: Nutrition Goal: Oral intake greater 75% Outcome: Progressing Goal: Adequate PO fluid intake Outcome: Progressing Goal: BG 80-180 mg/dL Outcome: Progressing Goal: Electrolytes WNL Outcome: Progressing * Care Marcos - Rach Alvarenga RN - 09/01/2023 2:09 PM EDT Problem: Psychosocial Needs Goal: Collaborate with me, my family, and caregiver to identify my specific goals Outcome: Progressing Problem: Discharge Barriers Goal: My discharge needs are met Outcome: Progressing Problem: Nutrition Goal: Oral intake greater 75% Outcome: Progressing Goal: Adequate PO fluid intake Outcome: Progressing Goal: BG 80-180 mg/dL Outcome: Progressing Goal: Electrolytes WNL Outcome: Progressing The patient's goals for the shift include get better The clinical goals for the shift include decreased pain * Care Plan - Melissa Jaquez RN - 09/01/2023 2:10 AM EDT Problem: Pain Goal: My pain/discomfort is manageable Outcome: Met Problem: Safety Goal: Patient will be injury free during hospitalization Outcome: Met Goal: I will remain free of falls Outcome: Met Problem: Daily Care Goal: Daily care needs are met Outcome: Met Problem: Psychosocial Needs Goal: Demonstrates ability to cope with hospitalization/illness Outcome: Met The patient's goals for the shift include get better The clinical goals for the shift include get better * Care Plan - Gila Aviles RN - 08/31/2023 5:21 PM EDT Problem: Psychosocial Needs Goal: Collaborate with me, my family, and caregiver to identify my specific goals Recent Flowsheet Documentation Taken 08/31/2023 1557 by Gila Aviles RN Cultural Requests During Hospitalization: none Spiritual Requests During Hospitalization: none documented in this [facility] Work Phone: [phone]) 947-347105-15-2024 Plan of care note* Care Plan - Heather Escalante RN - 09/03/2023 1:58 AM EDT The patient's goals for the shift include get better The clinical goals for the shift include Tolerate diet with no n/v Problem: Psychosocial Needs Goal: Collaborate with me, my family, and caregiver to identify my specific goals Outcome: Progressing Problem: Discharge Barriers Goal: My discharge needs are met Outcome: Progressing Problem: Nutrition Goal: Oral intake greater 75% Outcome: Progressing Goal: Adequate PO fluid intake Outcome: Progressing Goal: BG 80-180 mg/dL Outcome: Progressing Goal: Electrolytes WNL Outcome: Progressing Problem: Pain - Adult Goal: Verbalizes/displays adequate comfort level or baseline comfort level Outcome: Progressing Problem: Safety - Adult Goal: Free from fall injury Outcome: Progressing Problem: Discharge Planning Goal: Discharge to home or other facility with appropriate resources Outcome: Progressing Problem: Chronic Conditions and Co-morbidities Goal: Patient's chronic conditions and co-morbidity symptoms are monitored and maintained or improved Outcome: Progressing Problem: Diabetes Goal: Achieve decreasing blood glucose levels by end of shift Outcome: Progressing Goal: Increase stability of blood glucose readings by end of shift Outcome: Progressing Goal: Decrease in ketones present in urine by end of shift Outcome: Progressing Goal: Maintain electrolyte levels within acceptable range throughout shift Outcome: Progressing Goal: Maintain glucose levels >70mg/dl to <250mg/dl throughout shift Outcome: Progressing Goal: No changes in neurological exam by end of shift Outcome: Progressing Goal: Learn about and adhere to nutrition recommendations by end of shift Outcome: Progressing Goal: Vital signs within normal range for age by end of shift Outcome: Progressing Goal: Increase self care and/or family involovement by end of shift Outcome: Progressing Goal: Receive DSME education by end of shift Outcome: Progressing Problem: Pain Goal: Takes deep breaths with improved pain control throughout the shift Outcome: Progressing Goal: Turns in bed with improved pain control throughout the shift Outcome: Progressing Goal: Walks with improved pain control throughout the shift Outcome: Progressing Goal: Performs ADL's with improved pain control throughout shift Outcome: Progressing Goal: Participates in PT with improved pain control throughout the shift Outcome: Progressing Goal: Free from opioid side effects throughout the shift Outcome: Progressing Goal: Free from acute confusion related to pain meds throughout the shift Outcome: Progressing [facility]05-13-2024 Plan of care note* Care Plan - Heather Escalante RN - 09/01/2023 11:51 PM EDT The patient's goals for the shift include get better The clinical goals for the shift include Tolerated full liquids and to advance diet. Problem: Psychosocial Needs Goal: Collaborate with me, my family, and caregiver to identify my specific goals Outcome: Progressing Problem: Discharge Barriers Goal: My discharge needs are met Outcome: Progressing Problem: Nutrition Goal: Oral intake greater 75% Outcome: Progressing Goal: Adequate PO fluid intake Outcome: Progressing Goal: BG 80-180 mg/dL Outcome: Progressing Goal: Electrolytes WNL Outcome: Progressing [facility] Work Phone: [phone]) 551-925005-13-2024 Consult note* Titi Quezada DO - 09/01/2023 6:19 PM EDT Consults Reason For Consult Abdominal pain History Of Present Illness Anahi Dwyer is a 37 y.o. female presenting with left right upper quad abdominal pain. Chetna is a pleasant 37-year-old female known from prior evaluation my office. Underwent cholecystectomy second obstructive gallstones in 2016. She has had chronic diarrhea related to malabsorption since surgery recent norovirus which was self-limiting. Diarrhea is improved with cholestyramine. Patient was hospitalized for severe abdominal pain and elevated transaminases which date back to 2020 outpatient workup including ultrasound and CT and workup for treatable liver problems have been negative. Hepatitisserology performed in May of this year was nonreactive. Patient had workup at [facility] in May with upper GI endoscopy and percutaneous liver biopsy. 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 At discharge she was contactedregarding treatment with Rezdiffra, this authorization and approval for medication not occurred yet. Patient admits pain is worsened by eating. Improves with rest denies any weight loss or jaundice. 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 Past Medical History She has a past medical history of Calculus of bile duct with obstruction (06/17/2023), Depression (5-16-21), Diabetes (Multi), Dizziness and giddiness (04/02/2023), JUANA (generalized anxiety disorder)(05/19/2023), Irritable bowel syndrome (-20-19), Migraines, Near syncope (02/16/2023), Other specified health status, Placenta previa antepartum in second trimester ([facility] (02/25/2020), PTSD (post-traumatic stress disorder) (05/19/2023), PVC's (premature ventricular contractions) (02/16/2023), Seborrheic dermatitis (06/17/2023), and Vitamin D deficiency (02/16/2023). Surgical History She has a past surgical history that includes section, low transverse ( and 02-28-20); Cholecystectomy; and Eye surgery (01-01-23). Social History She reports that she has never smoked. She has never used smokeless tobacco. She reports that she does not drink alcohol and does not use drugs. Family History Family History Adopted: Yes Problem Relation Name Age of Onset Depression Daughter Hope Dwyer Allergies Bee venom protein (honey bee), Lexapro [escitalopram oxalate], Ultram [tramadol], Vicodin [hydrocodone-acetaminophen], and Lactose Review of Systems Constitutional: Negative. HENT: Negative. Eyes: Negative. Respiratory: Negative. Cardiovascular: Negative. Gastrointestinal: Positive for abdominal pain and nausea. Endocrine: Negative. Genitourinary: Negative. Neurological: Negative. Hematological: Negative. Physical Exam Vitals and nursing note reviewed. Constitutional: Appearance: Normal appearance. HENT: Head: Normocephalic. Mouth/Throat: Mouth: Mucous membranes are moist. Pharynx: Oropharynx is clear. Eyes: Conjunctiva/sclera: Conjunctivae normal. Pupils: Pupils are equal, round, and reactive to light. Cardiovascular: Rate and Rhythm: Normal rate and regular rhythm. Pulses: Normal pulses. Heart sounds: Normal heart sounds. Pulmonary: Effort: Pulmonary effort is normal. Breath sounds: Normal breath sounds. Abdominal: General: Abdomen is flat. Bowel sounds are normal. Palpations: Abdomen is soft. Musculoskeletal: General: Normal range of motion. Cervical back: Normal range of motion and neck supple. Skin: General: Skin is warm and dry. Neurological: General: No focal deficit present. Mental Status: She is alert and oriented to person, place, and time. Psychiatric: Behavior: Behavior normal. Last Recorded Vitals Blood pressure 115/77, pulse 57, temperature 36.7 C (98 F), temperature source Temporal, resp. rate16, height 1.549 m (5' 1), weight 84.9 kg (187 lb 2.7 oz), SpO2 96%. Relevant Results Results for orders placed or performed during the hospital encounter of 08/31/23 (from the past 24 hour(s)) TSH Result Value Ref Range Thyroid Stimulating Hormone 2.34 0.44 - 3.98 mIU/L Influenza A, and B PCR Result Value Ref Range Flu A Result Not Detected Not Detected Flu B Result Not Detected Not Detected Sars-CoV-2 PCR Result Value Ref Range Coronavirus 2019, PCR Not Detected Not Detected RSV PCR Result Value Ref Range RSV PCR Not Detected Not Detected CBC Result Value Ref Range WBC 5.8 4.4 - 11.3 x10*3/uL nRBC 0.0 0.0 - 0.0 /100 WBCs RBC 4.55 4.00 - 5.20 x10*6/uL Hemoglobin 13.2 12.0 - 16.0 g/dL Hematocrit 40.9 36.0 - 46.0 % MCV 90 80 - 100 fL MCH 29.0 26.0 - 34.0 pg MCHC 32.3 32.0 - 36.0 g/dL RDW 12.3 11.5 - 14.5 % Platelets 175 150 - 450 x10*3/uL Comprehensive metabolic panel Result Value Ref Range Glucose 202 (H) 74 - 99 mg/dL Sodium 136 136 - 145 mmol/L Potassium 3.7 3.5 - 5.3 mmol/L Chloride 110 (H) 98 - 107 mmol/L Bicarbonate 21 21 - 32 mmol/L Anion Gap 9 (L) 10 - 20 mmol/L Urea Nitrogen 13 6 - 23 mg/dL Creatinine 0.64 0.50 - 1.05 mg/dL eGFR >90 >60 mL/min/1.73m*2 Calcium 7.9 (L) 8.6 - 10.3 mg/dL Albumin 3.5 3.4 - 5.0 g/dL Alkaline Phosphatase 198 (H) 33 - 110 U/L Total Protein 5.9 (L) 6.4 - 8.2 g/dL AST 163 (H) 9 - 39 U/L Bilirubin, Total 0.5 0.0 - 1.2 mg/dL ALT 198 (H) 7 - 45 U/L Protime-INR Result Value Ref Range Protime 13.1 (H) 9.8 - 12.8 seconds INR 1.2 (H) 0.9 - 1.1 POCT GLUCOSE Result Value Ref Range POCT Glucose 135 (H) 74 - 99 mg/dL POCT GLUCOSE Result Value Ref Range POCT Glucose 134 (H) 74 - 99 mg/dL MR brain wo IV contrast Result Date: 09/01/2023 Interpreted By: Bar Mckinley, Ady Koroma STUDY: MR BRAIN WO IV CONTRAST; 09/01/2023 10:38 am INDICATION: Signs/Symptoms:dizziness. COMPARISON: CT head: 08/31/2023 ACCESSION NUMBER(S): [id number] ORDERING CLINICIAN: CHECO MO TECHNIQUE: Axial T2, FLAIR, DWI, gradient echo T2 and sagittal andcoronal T1 weighted images of brain were acquired. FINDINGS: The ventricles, sulci and basal cisterns are within normal limits. There is no extra-axial fluid collections. Diffusion-weighted imaging demonstrates no diffusion restriction abnormality to suggest an acute infarct. No focal parenchymal signal abnormality. No mass effect or midline shift Visualized paranasal sinuses and mastoid air cells are clear. No evidence of restricted diffusion to suggest recent ischemia. I personally reviewed the images/study and I agree with the findings as stated by Resident Ga Lagunas MD. This study was interpreted at [place], [place]. MACRO: None Signed by: Bar Mckinley 09/01/2023 6:00 PM Dictation workstation: [id number] ECG 12 Lead Result Date: 09/01/2023 Normal sinus rhythm Cannot rule out Inferior infarct (cited on or before 16-JUN-2023) Abnormal ECG When compared with ECG of 16-JUN-2023 16:55, No significant change was found CT abdomen pelvis w IV contrast Result Date: 08/31/2023 Interpreted By: Miky Mccann, STUDY: CT ABDOMEN PELVIS W IV CONTRAST; 08/31/2023 12:09 pm INDICATION: Signs/Symptoms:RUQ abd pain. COMPARISON: 06/16/2023. ACCESSION NUMBER(S): [id number] ORDERING CLINICIAN: HOLLEY GARNER TECHNIQUE: Contiguous axial images were obtained through the abdomen and pelvis after the administration of 69 mL Omnipaque 350 intravenous contrast. Coronal and sagittal reformations were made. FINDINGS: LOWER CHEST: Lung bases are clear. ABDOMEN: LIVER: Liver is enlarged measuring 20 cm in craniocaudal dimension. Diffuse fatty infiltration of the liver is again seen. BILE DUCTS: Nondilated. GALLBLADDER: Surgically absent. PANCREAS: Within normal limits. SPLEEN: Within normal limits. ADRENAL GLANDS: Within normal limits. KIDNEYS AND URETERS: The kidneys enhance symmetrically without focal lesion. No hydroureteronephrosis bilaterally. Urinary bladder is unremarkable. VESSELS: There is no aneurysmal dilatation of the abdominal aorta. The IVC is within normal limits. BOWEL: No bowel obstruction. Appendix is normal. No focal diverticular disease. PERITONEUM/RETROPERITONEUM/LYMPH NODES: No ascites or free air, no fluid collection. No retroperitoneal fluid collection or lymphadenopathy. ABDOMINAL WALL: Unremarkable. BONE AND SOFT TISSUE: There is L5 left unilateral spondylolysis without spondylolisthesis. Hepatomegaly and diffuse fatty infiltration of the liver. Previous cholecystectomy. No biliary dilation. Normal appendix. No bowel obstruction. MACRO: None. Signed by: Miky Mccann 08/31/2023 12:25 PM Dictation workstation: [id number] CT head wo IV contrast Result Date: 08/31/2023 Interpreted By: Miky Mccann, STUDY: CT HEAD WO IV CONTRAST; 08/31/2023 12:09 pm INDICATION: Signs/Symptoms:dizziness. COMPARISON: None. ACCESSION NUMBER(S): [id number] ORDERING CLINICIAN: HOLLEY GARNER TECHNIQUE: Contiguous unenhanced axial images were obtained through the brain. FINDINGS: INTRACRANIAL: No acute intracranial bleed, midline shift, or mass effect is seen. Swanson-white differentiation is maintained. No extra-axial fluid collection or hydrocephalus. Bones are intact. EXTRACRANIAL: Visualized paranasal sinuses and mastoids are clear. No acute intracranial process. MACRO: None. Signed by: Miky Mccann 08/31/2023 12:17 PM Dictation workstation: [id number] Assessment/Plan 37-year-old female with abdominal pain likely related to nonalcoholic fatty liver with fibrosis. Pain is across her abdomen may be a component of IBS. Diarrhea is controlled with cholestyramine as outpatient. At this time no further GI workup is needed. Underwent liver biopsy while at [facility] consistent with steatohepatitis with stage IV fibrosis is being prescreening to begin Rezdiffra. Recommend therapeutic trial of Bentyl will write results of MRCP which I anticipate will be normal as bilirubin is not elevated doubt obstructive process. Transaminase pattern consistent with fatty liver. Prior workup has shown no signs of treatable liver disease and hepatitis serology has been nonr eactive. Recommend aggressive diabetes control with getting her A1c down below 7%. 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 Will follow-up with her as outpatient I spent 20 minutes in the professional and overall care of this patient. [facility] Work Phone: [phone] [phone] Consult note* Titi Quezada DO - 09/01/2023 6:19 PM EDT Consults Reason For Consult Abdominal pain History Of Present Illness Anahi Dwyer is a 37 y.o. female presenting with left right upper quad abdominal pain. Chetna is a pleasant 37-year-old female known from prior evaluation my office. Underwent cholecystectomy second obstructive gallstones in 2017. She has had chronic diarrhea related to malabsorption since surgery recent norovirus which was self-limiting. Diarrhea is improved with cholestyramine. Patient was hospitalized for severe abdominal pain and elevated transaminases which date back to 2020 outpatient workup including ultrasound and CT and workup for treatable liver problems have been negative. Hepatitisserology performed in May of this year was nonreactive. Patient had workup at [facility] in May with upper GI endoscopy and percutaneous liver biopsy. 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 At discharge she was contactedregarding treatment with Rezdiffra, this authorization and approval for medication not occurred yet. Patient admits pain is worsened by eating. Improves with rest denies any weight loss or jaundice. 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 Past Medical History She has a past medical history of Calculus of bile duct with obstruction (06/17/2023), Depression (16-), Diabetes (Multi), Dizziness and giddiness (04/02/2023), JUANA (generalized anxiety disorder)(05/19/2023), Irritable bowel syndrome (08-08-18), Migraines, Near syncope (02/16/2023), Other specified health status, Placenta previa antepartum in second trimester ([facility] (02/25/2020), PTSD (post-traumatic stress disorder) (05/19/2023), PVC's (premature ventricular contractions) (02/16/2023), Seborrheic dermatitis (06/17/2023), and Vitamin D deficiency (02/16/2023). Surgical History She has a past surgical history that includes section, low transverse ( and 02-28-20); Cholecystectomy; and Eye surgery (01-01-23). Social History She reports that she has never smoked. She has never used smokeless tobacco. She reports that she does not drink alcohol and does not use drugs. Family History Family History Adopted: Yes Problem Relation Name Age of Onset Depression Daughter Hope Dwyer Allergies Bee venom protein (honey bee), Lexapro [escitalopram oxalate], Ultram [tramadol], Vicodin [hydrocodone-acetaminophen], and Lactose Review of Systems Constitutional: Negative. HENT: Negative. Eyes: Negative. Respiratory: Negative. Cardiovascular: Negative. Gastrointestinal: Positive for abdominal pain and nausea. Endocrine: Negative. Genitourinary: Negative. Neurological: Negative. Hematological: Negative. Physical Exam Vitals and nursing note reviewed. Constitutional: Appearance: Normal appearance. HENT: Head: Normocephalic. Mouth/Throat: Mouth: Mucous membranes are moist. Pharynx: Oropharynx is clear. Eyes: Conjunctiva/sclera: Conjunctivae normal. Pupils: Pupils are equal, round, and reactive to light. Cardiovascular: Rate and Rhythm: Normal rate and regular rhythm. Pulses: Normal pulses. Heart sounds: Normal heart sounds. Pulmonary: Effort: Pulmonary effort is normal. Breath sounds: Normal breath sounds. Abdominal: General: Abdomen is flat. Bowel sounds are normal. Palpations: Abdomen is soft. Musculoskeletal: General: Normal range of motion. Cervical back: Normal range of motion and neck supple. Skin: General: Skin is warm and dry. Neurological: General: No focal deficit present. Mental Status: She is alert and oriented to person, place, and time. Psychiatric: Behavior: Behavior normal. Last Recorded Vitals Blood pressure 115/77, pulse 57, temperature 36.7 C (98 F), temperature source Temporal, resp. rate16, height 1.549 m (5' 1), weight 84.9 kg (187 lb 2.7 oz), SpO2 96%. Relevant Results Results for orders placed or performed during the hospital encounter of 08/31/23 (from the past 24 hour(s)) TSH Result Value Ref Range Thyroid Stimulating Hormone 2.34 0.44 - 3.98 mIU/L Influenza A, and B PCR Result Value Ref Range Flu A Result Not Detected Not Detected Flu B Result Not Detected Not Detected Sars-CoV-2 PCR Result Value Ref Range Coronavirus 2019, PCR Not Detected Not Detected RSV PCR Result Value Ref Range RSV PCR Not Detected Not Detected CBC Result Value Ref Range WBC 5.8 4.4 - 11.3 x10*3/uL nRBC 0.0 0.0 - 0.0 /100 WBCs RBC 4.55 4.00 - 5.20 x10*6/uL Hemoglobin 13.2 12.0 - 16.0 g/dL Hematocrit 40.9 36.0 - 46.0 % MCV 90 80 - 100 fL MCH 29.0 26.0 - 34.0 pg MCHC 32.3 32.0 - 36.0 g/dL RDW 12.3 11.5 - 14.5 % Platelets 175 150 - 450 x10*3/uL Comprehensive metabolic panel Result Value Ref Range Glucose 202 (H) 74 - 99 mg/dL Sodium 136 136 - 145 mmol/L Potassium 3.7 3.5 - 5.3 mmol/L Chloride 110 (H) 98 - 107 mmol/L Bicarbonate 21 21 - 32 mmol/L Anion Gap 9 (L) 10 - 20 mmol/L Urea Nitrogen 13 6 - 23 mg/dL Creatinine 0.64 0.50 - 1.05 mg/dL eGFR >90 >60 mL/min/1.73m*2 Calcium 7.9 (L) 8.6 - 10.3 mg/dL Albumin 3.5 3.4 - 5.0 g/dL Alkaline Phosphatase 198 (H) 33 - 110 U/L Total Protein 5.9 (L) 6.4 - 8.2 g/dL AST 163 (H) 9 - 39 U/L Bilirubin, Total 0.5 0.0 - 1.2 mg/dL ALT 198 (H) 7 - 45 U/L Protime-INR Result Value Ref Range Protime 13.1 (H) 9.8 - 12.8 seconds INR 1.2 (H) 0.9 - 1.1 POCT GLUCOSE Result Value Ref Range POCT Glucose 135 (H) 74 - 99 mg/dL POCT GLUCOSE Result Value Ref Range POCT Glucose 134 (H) 74 - 99 mg/dL MR brain wo IV contrast Result Date: 09/01/2023 Interpreted By: Bar Mckinley and Dervishi Mario STUDY: MR BRAIN WO IV CONTRAST; 09/01/2023 10:38 am INDICATION: Signs/Symptoms:dizziness. COMPARISON: CT head: 08/31/2023 ACCESSION NUMBER(S): [id number] ORDERING CLINICIAN: CHECO MO TECHNIQUE: Axial T2, FLAIR, DWI, gradient echo T2 and sagittal andcoronal T1 weighted images of brain were acquired. FINDINGS: The ventricles, sulci and basal cisterns are within normal limits. There is no extra-axial fluid collections. Diffusion-weighted imaging demonstrates no diffusion restriction abnormality to suggest an acute infarct. No focal parenchymal signal abnormality. No mass effect or midline shift Visualized paranasal sinuses and mastoid air cells are clear. No evidence of restricted diffusion to suggest recent ischemia. I personally reviewed the images/study and I agree with the findings as stated by Resident Ga Lagunas MD. This study was interpreted at [place], [place]. MACRO: None Signed by: Bar Mckinley 09/01/2023 6:00 PM Dictation workstation: [id number] ECG 12 Lead Result Date: 09/01/2023 Normal sinus rhythm Cannot rule out Inferior infarct (cited on or before 16-JUN-2023) Abnormal ECG When compared with ECG of 16-JUN-2023 16:55, No significant change was found CT abdomen pelvis w IV contrast Result Date: 08/31/2023 Interpreted By: Miky Mccann, STUDY: CT ABDOMEN PELVIS W IV CONTRAST; 08/31/2023 12:09 pm INDICATION: Signs/Symptoms:RUQ abd pain. COMPARISON: 06/16/2023. ACCESSION NUMBER(S): [id number] ORDERING CLINICIAN: HOLLEY GARNER TECHNIQUE: Contiguous axial images were obtained through the abdomen and pelvis after the administration of 69 mL Omnipaque 350 intravenous contrast. Coronal and sagittal reformations were made. FINDINGS: LOWER CHEST: Lung bases are clear. ABDOMEN: LIVER: Liver is enlarged measuring 20 cm in craniocaudal dimension. Diffuse fatty infiltration of the liver is again seen. BILE DUCTS: Nondilated. GALLBLADDER: Surgically absent. PANCREAS: Within normal limits. SPLEEN: Within normal limits. ADRENAL GLANDS: Within normal limits. KIDNEYS AND URETERS: The kidneys enhance symmetrically without focal lesion. No hydroureteronephrosis bilaterally. Urinary bladder is unremarkable. VESSELS: There is no aneurysmal dilatation of the abdominal aorta. The IVC is within normal limits. BOWEL: No bowel obstruction. Appendix is normal. No focal diverticular disease. PERITONEUM/RETROPERITONEUM/LYMPH NODES: No ascites or free air, no fluid collection. No retroperitoneal fluid collection or lymphadenopathy. ABDOMINAL WALL: Unremarkable. BONE AND SOFT TISSUE: There is L5 left unilateral spondylolysis without spondylolisthesis. Hepatomegaly and diffuse fatty infiltration of the liver. Previous cholecystectomy. No biliary dilation. Normal appendix. No bowel obstruction. MACRO: None. Signed by: Miky Mccann 08/31/2023 12:25 PM Dictation workstation: [id number] CT head wo IV contrast Result Date: 08/31/2023 Interpreted By: Miky Mccann, STUDY: CT HEAD WO IV CONTRAST; 08/31/2023 12:09 pm INDICATION: Signs/Symptoms:dizziness. COMPARISON: None. ACCESSION NUMBER(S): [id number] ORDERING CLINICIAN: HOLLEY GARNER TECHNIQUE: Contiguous unenhanced axial images were obtained through the brain. FINDINGS: INTRACRANIAL: No acute intracranial bleed, midline shift, or mass effect is seen. Swanson-white differentiation is maintained. No extra-axial fluid collection or hydrocephalus. Bones are intact. EXTRACRANIAL: Visualized paranasal sinuses and mastoids are clear. No acute intracranial process. MACRO: None. Signed by: Miky Mccann 08/31/2023 12:17 PM Dictation workstation: [id number] Assessment/Plan 37-year-old female with abdominal pain likely related to nonalcoholic fatty liver with fibrosis. Pain is across her abdomen may be a component of IBS. Diarrhea is controlled with cholestyramine as outpatient. At this time no further GI workup is needed. Underwent liver biopsy while at [facility] consistent with steatohepatitis with stage IV fibrosis is being prescreening to begin Rezdiffra. Recommend therapeutic trial of Bentyl will write results of MRCP which I anticipate will be normal as bilirubin is not elevated doubt obstructive process. Transaminase pattern consistent with fatty liver. Prior workup has shown no signs of treatable liver disease and hepatitis serology has been nonr eactive. Recommend aggressive diabetes control with getting her A1c down below 7%. 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 Will follow-up with her as outpatient I spent 20 minutes in the professional and overall care of this patient. * Estefania Galvin RDN, LD - 09/01/2023 11:49 AM EDTAssociated Order(s): IP CONSULT TO NUTRITION SERVICES Nutrition Initial Assessment: Nutrition Assessment Reason for Assessment: Admission nursing screening Patient is a 37 y.o. female presenting with Hyperglycemia 09/01/23 patient seen - stated was instructed on DM diet in June and denied any diet related questions. Has the Dexcom to monitor blood sugars. Vit D level 20 - is on supplement - Vit D 3 would be better absorbed Nutrition History: Energy Intake: Good > 75 % Food and Nutrient History: good po Vitamin/Herbal Supplement Use: B12, Vit D Food Allergies/Intolerances: None GI Symptoms: Nausea and Abdominal pain Oral Problems: None Anthropometrics: Height: 154.9 cm (5' 1) Weight: 84.9 kg (187 lb 2.7 oz) BMI (Calculated): 35.38 IBW/kg (Dietitian Calculated): 47.7 kg Percent of IBW: 178 % Adjusted Body Weight (kg): 57 kg Weight History: Daily Weight 08/31/23 : 84.9 kg (187 lb 2.7 oz) 08/14/23 : 86.6 kg (191 lb) 07/17/23 : 88 kg (194 lb) 07/02/23 : 88 kg (194 lb) 06/25/23 : 86.2 kg (190 lb) 06/19/23 : 82.1 kg (181 lb) 06/16/23 : 87.1 kg (192 lb) 06/12/23 : 87.5 kg (192 lb 12.8 oz) 06/10/23 : 86.6 kg (191 lb) 05/22/23 : 82.3 kg (181 lb 6.4 oz) Weight Change %: Weight History / % Weight Change: gain 10# in past year Significant Weight Loss: No Significant Weight Gain: Non-fluid related Nutrition Focused Physical Exam Findings: defer: not indicated Nutrition Significant Labs: A1C: Lab Results Component Value Date HGBA1C 8.4 (H) 07/17/2023 , BG POCT trend: Results from last 7 days Lab Units 08/31/23 1603 08/31/23 1256 08/31/23 1141 08/31/23 1024 POCT GLUCOSE mg/dL 250* 317* 461* 434* , Liver Function Trend: Results from last 7 days Lab Units 09/01/23 0510 08/31/23 1040 ALK PHOS U/L 198* 249* AST U/L 163* 137* ALT U/L 198* 218* BILIRUBIN TOTAL mg/dL 0.5 0.4 , Renal Lab Trend: Results from last 7 days Lab Units 09/01/23 0510 08/31/23 1040 POTASSIUM mmol/L 3.7 4.1 SODIUM mmol/L 136 131* EGFR mL/min/1.73m*2 >90 >90 BUN mg/dL 13 13 CREATININE mg/dL 0.64 0.81 Nutrition Specific Medications: Scheduled medications cholestyramine light, 4 g, oral, BID cyanocobalamin, 1,000 mcg, oral, Daily insulin glargine, 32 Units, subcutaneous, q24h insulin lispro, 0-5 Units, subcutaneous, TID with meals pantoprazole, 40 mg, oral, Daily before breakfast polyethylene glycol, 17 g, oral, Daily I/O: Last BM Date: 08/30/23; Dietary Orders (From admission, onward) Start Ordered 09/01/23 1111 NPO Diet; Effective now Diet effective now 09/01/23 1110 Estimated Needs: Total Energy Estimated Needs (kCal): 2000 kCal Method for Estimating Needs: [address] St Jeor Total Protein Estimated Needs (g): 68 g Method for Estimating Needs: 0.8-1 gm/kg 68-85 gm Total Fluid Estimated Needs (mL): 2000 mL Method for Estimating Needs: 1 ml/kcal Nutrition Diagnosis Malnutrition Diagnosis Patient has Malnutrition Diagnosis: No Nutrition Diagnosis Patient has Nutrition Diagnosis: Yes Diagnosis Status (1): New Nutrition Diagnosis 1: Altered nutrition related to laboratory values Related to (1): diabetes As Evidenced by (1): Glucose 202 mg/dl, A1C 8.4% Additional Nutrition Diagnosis: Diagnosis 2 Diagnosis Status (2): New Nutrition Diagnosis 2: Obese Related to (2): excess calorie intake As Evidenced by (2): BMI 35.37 kg/m2 Nutrition Interventions/Recommendations Nutrition Prescription: Individualized Nutrition Prescription Provided for : Oral nutrition Nutrition Interventions: Interventions: Meals and snacks Meals and Snacks: Carbohydrate-modified diet Goal: Recommend CCD diet when advanced - currently NPO for testing Collaboration and Referral of Nutrition Care: Team meeting involving nutrition professional Goal: IDT meeting Nutrition Education: Previously educated on DM diet - denied need for review Nutrition Monitoring and Evaluation Food/Nutrient Related History Monitoring Monitoring and Evaluation Plan: Amount of food Amount of Food: Estimated amout of food Criteria: >75% meals Body Composition/Growth/Weight History Monitoring and Evaluation Plan: BMI Body Mass: Body mass index (BMI) Criteria: Would benefit from slow weight loss toward healthy BMI Biochemical Data, Medical Tests and Procedures Monitoring and Evaluation Plan: Glucose/endocrine profile Glucose/Endocrine Profile: Glucose, casual Criteria: 100-140 mg/dl Time Spent/Follow-up Reminder: Time Spent (min): 30 minutes Last Date of Nutrition Visit: 09/01/23 Nutrition Follow-Up Needed?: 7-10 days Follow up Comment: EDILBERTO Galvin RDN, LD documented in this [facility] Work Phone: [phone]) [phone] Plan of care note* Care Plan - Rach Alvarenga RN - 09/01/2023 2:09 PM EDT Problem: Psychosocial Needs Goal: Collaborate with me, my family, and caregiver to identify my specific goals Outcome: Progressing Problem: Discharge Barriers Goal: My discharge needs are met Outcome: Progressing Problem: Nutrition Goal: Oral intake greater 75% Outcome: Progressing Goal: Adequate PO fluid intake Outcome: Progressing Goal: BG 80-180 mg/dL Outcome: Progressing Goal: Electrolytes WNL Outcome: Progressing The patient's goals for the shift include get better The clinical goals for the shift include decreased pain [facility]05-13-2024 Consult note* Estefania Galvin RDN, JEFF - 09/01/2023 11:49 AM EDTAssociated Order(s): IP CONSULT TO NUTRITION SERVICES Nutrition Initial Assessment: Nutrition Assessment Reason for Assessment: Admission nursing screening Patient is a 37 y.o. female presenting with Hyperglycemia 09/01/23 patient seen - stated was instructed on DM diet in June and denied any diet related questions. Has the Dexcom to monitor blood sugars. Vit D level 20 - is on supplement - Vit D 3 would be better absorbed Nutrition History: Energy Intake: Good > 75 % Food and Nutrient History: good po Vitamin/Herbal Supplement Use: B12, Vit D Food Allergies/Intolerances: None GI Symptoms: Nausea and Abdominal pain Oral Problems: None Anthropometrics: Height: 154.9 cm (5' 1) Weight: 84.9 kg (187 lb 2.7 oz) BMI (Calculated): 35.38 IBW/kg (Dietitian Calculated): 47.7 kg Percent of IBW: 178 % Adjusted Body Weight (kg): 57 kg Weight History: Daily Weight 08/31/23 : 84.9 kg (187 lb 2.7 oz) 08/14/23 : 86.6 kg (191 lb) 07/17/23 : 88 kg (194 lb) 07/02/23 : 88 kg (194 lb) 06/25/23 : 86.2 kg (190 lb) 06/19/23 : 82.1 kg (181 lb) 06/16/23 : 87.1 kg (192 lb) 06/12/23 : 87.5 kg (192 lb 12.8 oz) 06/10/23 : 86.6 kg (191 lb) 05/22/23 : 82.3 kg (181 lb 6.4 oz) Weight Change %: Weight History / % Weight Change: gain 10# in past year Significant Weight Loss: No Significant Weight Gain: Non-fluid related Nutrition Focused Physical Exam Findings: defer: not indicated Nutrition Significant Labs: A1C: Lab Results Component Value Date HGBA1C 8.4 (H) 07/17/2023 , BG POCT trend: Results from last 7 days Lab Units 08/31/23 1603 08/31/23 1256 08/31/23 1141 08/31/23 1024 POCT GLUCOSE mg/dL 250* 317* 461* 434* , Liver Function Trend: Results from last 7 days Lab Units 09/01/23 0510 08/31/23 1040 ALK PHOS U/L 198* 249* AST U/L 163* 137* ALT U/L 198* 218* BILIRUBIN TOTAL mg/dL 0.5 0.4 , Renal Lab Trend: Results from last 7 days Lab Units 09/01/23 0510 08/31/23 1040 POTASSIUM mmol/L 3.7 4.1 SODIUM mmol/L 136 131* EGFR mL/min/1.73m*2 >90 >90 BUN mg/dL 13 13 CREATININE mg/dL 0.64 0.81 Nutrition Specific Medications: Scheduled medications cholestyramine light, 4 g, oral, BID cyanocobalamin, 1,000 mcg, oral, Daily insulin glargine, 32 Units, subcutaneous, q24h insulin lispro, 0-5 Units, subcutaneous, TID with meals pantoprazole, 40 mg, oral, Daily before breakfast polyethylene glycol, 17 g, oral, Daily I/O: Last BM Date: 08/30/23; Dietary Orders (From admission, onward) Start Ordered 09/01/23 1111 NPO Diet; Effective now Diet effective now 09/01/23 1110 Estimated Needs: Total Energy Estimated Needs (kCal): 2000 kCal Method for Estimating Needs: [place] St Li Total Protein Estimated Needs (g): 68 g Method for Estimating Needs: 0.8-1 gm/kg 68-85 gm Total Fluid Estimated Needs (mL): 2000 mL Method for Estimating Needs: 1 ml/kcal Nutrition Diagnosis Malnutrition Diagnosis Patient has Malnutrition Diagnosis: No Nutrition Diagnosis Patient has Nutrition Diagnosis: Yes Diagnosis Status (1): New Nutrition Diagnosis 1: Altered nutrition related to laboratory values Related to (1): diabetes As Evidenced by (1): Glucose 202 mg/dl, A1C 8.4% Additional Nutrition Diagnosis: Diagnosis 2 Diagnosis Status (2): New Nutrition Diagnosis 2: Obese Related to (2): excess calorie intake As Evidenced by (2): BMI 35.37 kg/m2 Nutrition Interventions/Recommendations Nutrition Prescription: Individualized Nutrition Prescription Provided for : Oral nutrition Nutrition Interventions: Interventions: Meals and snacks Meals and Snacks: Carbohydrate-modified diet Goal: Recommend CCD diet when advanced - currently NPO for testing Collaboration and Referral of Nutrition Care: Team meeting involving nutrition professional Goal: IDT meeting Nutrition Education: Previously educated on DM diet - denied need for review Nutrition Monitoring and Evaluation Food/Nutrient Related History Monitoring Monitoring and Evaluation Plan: Amount of food Amount of Food: Estimated amout of food Criteria: >75% meals Body Composition/Growth/Weight History Monitoring and Evaluation Plan: BMI Body Mass: Body mass index (BMI) Criteria: Would benefit from slow weight loss toward healthy BMI Biochemical Data, Medical Tests and Procedures Monitoring and Evaluation Plan: Glucose/endocrine profile Glucose/Endocrine Profile: Glucose, casual Criteria: 100-140 mg/dl Time Spent/Follow-up Reminder: Time Spent (min): 30 minutes Last Date of Nutrition Visit: 09/01/23 Nutrition Follow-Up Needed?: 7-10 days Follow up Comment: EDILBERTO Galvin RDN, LD [facility] Work Phone: [phone] Plan of care note* Care Plan - Melissa Jaquez RN - 09/01/2023 2:10 AM EDT Problem: Pain Goal: My pain/discomfort is manageable Outcome: Met Problem: Safety Goal: Patient will be injury free during hospitalization Outcome: Met Goal: I will remain free of falls Outcome: Met Problem: Daily Care Goal: Daily care needs are met Outcome: Met Problem: Psychosocial Needs Goal: Demonstrates ability to cope with hospitalization/illness Outcome: Met The patient's goals for the shift include get better The clinical goals for the shift include get better [facility]05-12-2024 History and physical note* Checo Mo MD - 08/31/2023 8:53 PM EDT History Of Present Illness Anahi Dwyer is a 37 y.o. female presenting with right upper quadrant abdominal pain accompanied bynausea but no vomiting or diarrhea without any sick contacts or travel recently and not eating anything unusual lately and was diagnosed with diabetes mellitus type 2 April this year. Says that herdiabetes is not well- controlled and blood sugars often run high. Denies fever chills or appetite margot nge or weight loss. CT abdomen pelvis did not show acute process and previous cholecystectomy. She is not in DKA. No metabolic acidosis or anion gap and beta- hydroxybutyrate fine. Patient has nonalcoholic fatty liver disease and transaminitis. EKG sinus rhythm and troponin fine. Denies urinary complaints and no leukocytosis. No cough or hemoptysis or wheeze. She has dizziness with hyperglycemia and also ataxic gait. CT head was negative for acute process. Feeling of near syncope and generalizedweakness. Fatigue. No back pain flank pain hematuria dysuria as mentioned. Abdomen pain is worse with food or meals. No headache or focal weakness. No numbness weakness paralysis or paresthesias or tingling. No joint pains or skin rash or blurry vision or focal diplopia or slurred speech or dysphagia or focal weakness as mentioned. Patient was given 14 units of regular insulin IV in the ER as well 1 L normal saline. No other complaints at this time Past Medical History Past Medical History: Diagnosis Date Calculus of bile duct with obstruction 06/17/2023 Depression 5-16-21 Diabetes (Multi) Dizziness and giddiness 04/02/2023 JUANA (generalized anxiety disorder) 05/19/2023 Irritable bowel syndrome 4-20-19 Migraines Near syncope 02/16/2023 Other specified health status No pertinent past medical history Placenta previa antepartum in second trimester ([facility]) 02/25/2020 PTSD (post-traumatic stress disorder) 05/19/2023 PVC's (premature ventricular contractions) 02/16/2023 Seborrheic dermatitis 06/17/2023 Vitamin D deficiency 02/16/2023 Diabetes mellitus type 2 Migraine GERD Depression Generalized anxiety disorder Surgical History Past Surgical History: Procedure Laterality Date SECTION, LOW TRANSVERSE and 02-28-20 x2 CHOLECYSTECTOMY EYE SURGERY 01-01-23 Social History She reports that she has never smoked. She has never used smokeless tobacco. She reports that she does not drink alcohol and does not use drugs. Family History Family History Adopted: Yes Problem Relation Name Age of Onset Depression Daughter Hope Dwyer Patient states that she is adopted and unsure of her family history Allergies Bee venom protein (honey bee), Lexapro [escitalopram oxalate], Ultram [tramadol], Vicodin [hydrocodone-acetaminophen], and Lactose Review of Systems All other 12 point review of systems negative except HPI Physical Exam General Appearance: AAO x 3, Skin: skin color pink, warm, and dry; no suspicious rashes or lesions Eyes : PERRL, EOM's intact ENT: mucous membranes pink and moist Neck: normocephalic Respiratory: lungs clear to auscultation anteriorly; no wheezing, rhonchi, or crackles. Heart: regular rate and rhythm. Abdomen: Nondistended, positive bowel sounds x4, soft, tender Extremities: no edema Peripheral pulses: normal x4 extremities Neuro: alert, coherent and conversant, no focal motor deficits Last Recorded Vitals Blood pressure 103/66, pulse 60, temperature 36.3 C (97.3 F), resp. rate 16, height 1.549 m (5' 1), weight 84.9 kg (187 lb 2.7 oz), SpO2 97%. Relevant Results Scheduled medications ARIPiprazole, 5 mg, oral, Daily cholestyramine light, 4 g, oral, BID cyanocobalamin, 1,000 mcg, oral, Daily [START ON 09/01/2023] FLUoxetine, 20 mg, oral, Daily insulin glargine, 32 Units, subcutaneous, q24h insulin lispro, 0-5 Units, subcutaneous, TID with meals [START ON 09/01/2023] pantoprazole, 40 mg, oral, Daily before breakfast polyethylene glycol, 17 g, oral, Daily topiramate, 50 mg, oral, BID Continuous medications sodium chloride 0.9%, 125 mL/hr, Last Rate: 125 mL/hr (08/31/23 1612) PRN medications PRN medications: acetaminophen OR acetaminophen OR acetaminophen, acetaminophen OR acetaminophen OR acetaminophen, dextrose, dextrose, glucagon, glucagon, meclizine, morphine, morphine, ondansetron ODT OR ondansetron Results for orders placed or performed during the hospital encounter of 08/31/23 (from the past 24 hour(s)) POCT GLUCOSE Result Value Ref Range POCT Glucose 434 (H) 74 - 99 mg/dL Urinalysis with Reflex Culture and Microscopic Result Value Ref Range Color, Urine Straw Straw, Yellow Appearance, Urine Clear Clear Specific [place], Urine 1.032 1.005 - 1.035 pH, Urine 5.0 5.0, 5.5, 6.0, 6.5, 7.0, 7.5, 8.0 Protein, Urine NEGATIVE NEGATIVE mg/dL Glucose, Urine >=500 (3+) (A) NEGATIVE mg/dL Blood, Urine LARGE (3+) (A) NEGATIVE Ketones, Urine NEGATIVE NEGATIVE mg/dL Bilirubin, Urine NEGATIVE NEGATIVE Urobilinogen, Urine <2.0 <2.0 mg/dL Nitrite, Urine NEGATIVE NEGATIVE Leukocyte Esterase, Urine NEGATIVE NEGATIVE hCG, Urine, Qualitative Result Value Ref Range HCG, Urine NEGATIVE NEGATIVE Urinalysis Microscopic Result Value Ref Range WBC, Urine 1-5 1-5, NONE /HPF RBC, Urine NONE NONE, 1-2, 3-5 /HPF Squamous Epithelial Cells, Urine 1-9 (SPARSE) Reference range not established. /HPF Troponin I, High Sensitivity Result Value Ref Range Troponin I, High Sensitivity 4 0 - 13 ng/L CBC and Auto Differential Result Value Ref Range WBC 5.6 4.4 - 11.3 x10*3/uL nRBC 0.0 0.0 - 0.0 /100 WBCs RBC 4.90 4.00 - 5.20 x10*6/uL Hemoglobin 14.1 12.0 - 16.0 g/dL Hematocrit 44.1 36.0 - 46.0 % MCV 90 80 - 100 fL MCH 28.8 26.0 - 34.0 pg MCHC 32.0 32.0 - 36.0 g/dL RDW 12.0 11.5 - 14.5 % Platelets 181 150 - 450 x10*3/uL Neutrophils % 56.7 40.0 - 80.0 % Immature Granulocytes %, Automated 0.4 0.0 - 0.9 % Lymphocytes % 32.7 13.0 - 44.0 % Monocytes % 7.0 2.0 - 10.0 % Eosinophils % 2.1 0.0 - 6.0 % Basophils % 1.1 0.0 - 2.0 % Neutrophils Absolute 3.17 1.20 - 7.70 x10*3/uL Immature Granulocytes Absolute, Automated 0.02 0.00 - 0.70 x10*3/uL Lymphocytes Absolute 1.83 1.20 - 4.80 x10*3/uL Monocytes Absolute 0.39 0.10 - 1.00 x10*3/uL Eosinophils Absolute 0.12 0.00 - 0.70 x10*3/uL Basophils Absolute 0.06 0.00 - 0.10 x10*3/uL Comprehensive metabolic panel Result Value Ref Range Glucose 505 (HH) 74 - 99 mg/dL Sodium 131 (L) 136 - 145 mmol/L Potassium 4.1 3.5 - 5.3 mmol/L Chloride 101 98 - 107 mmol/L Bicarbonate 21 21 - 32 mmol/L Anion Gap 13 10 - 20 mmol/L Urea Nitrogen 13 6 - 23 mg/dL Creatinine 0.81 0.50 - 1.05 mg/dL eGFR >90 >60 mL/min/1.73m*2 Calcium 8.8 8.6 - 10.3 mg/dL Albumin 4.2 3.4 - 5.0 g/dL Alkaline Phosphatase 249 (H) 33 - 110 U/L Total Protein 7.1 6.4 - 8.2 g/dL AST 137 (H) 9 - 39 U/L Bilirubin, Total 0.4 0.0 - 1.2 mg/dL ALT 218 (H) 7 - 45 U/L Lipase Result Value Ref Range Lipase 62 9 - 82 U/L Beta Hydroxybutyrate Result Value Ref Range Beta-Hydroxybutyrate 0.18 0.02 - 0.27 mmol/L POCT GLUCOSE Result Value Ref Range POCT Glucose 461 (H) 74 - 99 mg/dL POCT GLUCOSE Result Value Ref Range POCT Glucose 317 (H) 74 - 99 mg/dL POCT GLUCOSE Result Value Ref Range POCT Glucose 250 (H) 74 - 99 mg/dL CT abdomen pelvis w IV contrast Result Date: 08/31/2023 Interpreted By: Miky Mccann, STUDY: CT ABDOMEN PELVIS W IV CONTRAST; 08/31/2023 12:09 pm INDICATION: Signs/Symptoms:RUQ abd pain. COMPARISON: 06/16/2023. ACCESSION NUMBER(S): [id number] ORDERING CLINICIAN: HOLLEY GARNER TECHNIQUE: Contiguous axial images were obtained through the abdomen and pelvis after the administration of 69 mL Omnipaque 350 intravenous contrast. Coronal and sagittal reformations were made. FINDINGS: LOWER CHEST: Lung bases are clear. ABDOMEN: LIVER: Liver is enlarged measuring 20 cm in craniocaudal dimension. Diffuse fatty infiltration of the liver is again seen. BILE DUCTS: Nondilated. GALLBLADDER: Surgically absent. PANCREAS: Within normal limits. SPLEEN: Within normal limits. ADRENAL GLANDS: Within normal limits. KIDNEYS AND URETERS: The kidneys enhance symmetrically without focal lesion. No hydroureteronephrosis bilaterally. Urinary bladder is unremarkable. VESSELS: There is no aneurysmal dilatation of the abdominal aorta. The IVC is within normal limits. BOWEL: No bowel obstruction. Appendix is normal. No focal diverticular disease. PERITONEUM/RETROPERITONEUM/LYMPH NODES: No ascites or free air, no fluid collection. No retroperitoneal fluid collection or lymphadenopathy. ABDOMINAL WALL: Unremarkable. BONE AND SOFT TISSUE: There is L5 left unilateral spondylolysis without spondylolisthesis. Hepatomegaly and diffuse fatty infiltration of the liver. Previous cholecystectomy. No biliary dilation. Normal appendix. No bowel obstruction. MACRO: None. Signed by: Miky Mccann 08/31/2023 12:25 PM Dictation workstation: [id number] CT head wo IV contrast Result Date: 08/31/2023 Interpreted By: Miky Mccann, STUDY: CT HEAD WO IV CONTRAST; 08/31/2023 12:09 pm INDICATION: Signs/Symptoms:dizziness. COMPARISON: None. ACCESSION NUMBER(S): [id number] ORDERING CLINICIAN: HOLLEY GARNER TECHNIQUE: Contiguous unenhanced axial images were obtained through the brain. FINDINGS: INTRACRANIAL: No acute intracranial bleed, midline shift, or mass effect is seen. Swanson-white differentiation is maintained. No extra-axial fluid collection or hydrocephalus. Bones are intact. EXTRACRANIAL: Visualized paranasal sinuses and mastoids are clear. No acute intracranial process. MACRO: None. Signed by: Miky Mccann 08/31/2023 12:17 PM Dictation workstation: [id number] Assessment/Plan Principal Problem: Hyperglycemia 37-year-old female with history of Obesity Diabetes mellitus type 2 Migraine GERD Depression Generalized anxiety disorder Presented with Dizziness and uncontrolled hyperglycemia, near syncope with fatigue Ataxia possible diabetic neuropathy Right upper quadrant pain/epigastric pain with GERD ruled out ACS Transaminitis/nonalcoholic fatty liver disease Sore throat possible viral illness Plan Cardiopulmonary monitoring Hydrate with normal saline at 125 cc/h Lantus 32 units subcu daily Insulin sliding scale and monitor fingerstick Full liquids to advance as tolerated to carb controlled diet Antiemetics Supportive care Protonix 40 Mg daily for GERD Morphine IV as ordered for pain control Continue home medicines as tolerated On fluoxetine 20 mg daily Education counseling Topamax 50 mg twice daily Meclizine 25 mg p.o. 3 times daily On B12 supplement Also Abilify 5 mg daily for psychiatric issues Can check flu, COVID-19 and RSV Lipase negative and no acute pancreatitis on imaging Urinalysis no infection If no improvement, consider PT, will benefit from disequilibrium exercises Encourage weight loss, check TSH Healthy diet Trend LFTs Check MRI brain to evaluate dizziness, after test to be on safe side Follow endocrine outpatient Follow vitals Daily labs CBC If no improvement in LFTs then consult gastroenterology inpatient otherwise can follow outpatient Continue home medicines colestyramine 4 g twice daily No jaundice, check PT/INR Encourage ambulation, SCDs for DVT prophylaxis Further management as clinical course evolves Checo Mo MD [facility] Work Phone: 1([phone]) 423-514905-12-2024 History and physical note* Checo Mo MD - 08/31/2023 8:53 PM EDT History Of Present Illness Anahi Dwyer is a 37 y.o. female presenting with right upper quadrant abdominal pain accompanied bynausea but no vomiting or diarrhea without any sick contacts or travel recently and not eating anything unusual lately and was diagnosed with diabetes mellitus type 2 April this year. Says that herdiabetes is not well- controlled and blood sugars often run high. Denies fever chills or appetite margot nge or weight loss. CT abdomen pelvis did not show acute process and previous cholecystectomy. She is not in DKA. No metabolic acidosis or anion gap and beta- hydroxybutyrate fine. Patient has nonalcoholic fatty liver disease and transaminitis. EKG sinus rhythm and troponin fine. Denies urinary complaints and no leukocytosis. No cough or hemoptysis or wheeze. She has dizziness with hyperglycemia and also ataxic gait. CT head was negative for acute process. Feeling of near syncope and generalizedweakness. Fatigue. No back pain flank pain hematuria dysuria as mentioned. Abdomen pain is worse with food or meals. No headache or focal weakness. No numbness weakness paralysis or paresthesias or tingling. No joint pains or skin rash or blurry vision or focal diplopia or slurred speech or dysphagia or focal weakness as mentioned. Patient was given 14 units of regular insulin IV in the ER as well 1 L normal saline. No other complaints at this time Past Medical History Past Medical History: Diagnosis Date Calculus of bile duct with obstruction 06/17/2023 Depression 09-03-20 Diabetes (Multi) Dizziness and giddiness 04/02/2023 JUANA (generalized anxiety disorder) 05/19/2023 Irritable bowel syndrome 08-08-18 Migraines Near syncope 02/16/2023 Other specified health status No pertinent past medical history Placenta previa antepartum in second trimester ([facility] [place]) 02/25/2020 PTSD (post-traumatic stress disorder) 05/19/2023 PVC's (premature ventricular contractions) 02/16/2023 Seborrheic dermatitis 06/17/2023 Vitamin D deficiency 02/16/2023 Diabetes mellitus type 2 Migraine GERD Depression Generalized anxiety disorder Surgical History Past Surgical History: Procedure Laterality Date SECTION, LOW TRANSVERSE and 02-28-20 x2 CHOLECYSTECTOMY EYE SURGERY 01-01-23 Social History She reports that she has never smoked. She has never used smokeless tobacco. She reports that she does not drink alcohol and does not use drugs. Family History Family History Adopted: Yes Problem Relation Name Age of Onset Depression Daughter Hope Dwyer Patient states that she is adopted and unsure of her family history Allergies Bee venom protein (honey bee), Lexapro [escitalopram oxalate], Ultram [tramadol], Vicodin [hydrocodone-acetaminophen], and Lactose Review of Systems All other 12 point review of systems negative except HPI Physical Exam General Appearance: AAO x 3, Skin: skin color pink, warm, and dry; no suspicious rashes or lesions Eyes : PERRL, EOM's intact ENT: mucous membranes pink and moist Neck: normocephalic Respiratory: lungs clear to auscultation anteriorly; no wheezing, rhonchi, or crackles. Heart: regular rate and rhythm. Abdomen: Nondistended, positive bowel sounds x4, soft, tender Extremities: no edema Peripheral pulses: normal x4 extremities Neuro: alert, coherent and conversant, no focal motor deficits Last Recorded Vitals Blood pressure 103/66, pulse 60, temperature 36.3 C (97.3 F), resp. rate 16, height 1.549 m (5' 1), weight 84.9 kg (187 lb 2.7 oz), SpO2 97%. Relevant Results Scheduled medications ARIPiprazole, 5 mg, oral, Daily cholestyramine light, 4 g, oral, BID cyanocobalamin, 1,000 mcg, oral, Daily [START ON 09/01/2023] FLUoxetine, 20 mg, oral, Daily insulin glargine, 32 Units, subcutaneous, q24h insulin lispro, 0-5 Units, subcutaneous, TID with meals [START ON 09/01/2023] pantoprazole, 40 mg, oral, Daily before breakfast polyethylene glycol, 17 g, oral, Daily topiramate, 50 mg, oral, BID Continuous medications sodium chloride 0.9%, 125 mL/hr, Last Rate: 125 mL/hr (08/31/23 1612) PRN medications PRN medications: acetaminophen OR acetaminophen OR acetaminophen, acetaminophen OR acetaminophen OR acetaminophen, dextrose, dextrose, glucagon, glucagon, meclizine, morphine, morphine, ondansetron ODT OR ondansetron Results for orders placed or performed during the hospital encounter of 08/31/23 (from the past 24 hour(s)) POCT GLUCOSE Result Value Ref Range POCT Glucose 434 (H) 74 - 99 mg/dL Urinalysis with Reflex Culture and Microscopic Result Value Ref Range Color, Urine Straw Straw, Yellow Appearance, Urine Clear Clear Specific [place], Urine 1.032 1.005 - 1.035 pH, Urine 5.0 5.0, 5.5, 6.0, 6.5, 7.0, 7.5, 8.0 Protein, Urine NEGATIVE NEGATIVE mg/dL Glucose, Urine >=500 (3+) (A) NEGATIVE mg/dL Blood, Urine LARGE (3+) (A) NEGATIVE Ketones, Urine NEGATIVE NEGATIVE mg/dL Bilirubin, Urine NEGATIVE NEGATIVE Urobilinogen, Urine <2.0 <2.0 mg/dL Nitrite, Urine NEGATIVE NEGATIVE Leukocyte Esterase, Urine NEGATIVE NEGATIVE hCG, Urine, Qualitative Result Value Ref Range HCG, Urine NEGATIVE NEGATIVE Urinalysis Microscopic Result Value Ref Range WBC, Urine 1-5 1-5, NONE /HPF RBC, Urine NONE NONE, 1-2, 3-5 /HPF Squamous Epithelial Cells, Urine 1-9 (SPARSE) Reference range not established. /HPF Troponin I, High Sensitivity Result Value Ref Range Troponin I, High Sensitivity 4 0 - 13 ng/L CBC and Auto Differential Result Value Ref Range WBC 5.6 4.4 - 11.3 x10*3/uL nRBC 0.0 0.0 - 0.0 /100 WBCs RBC 4.90 4.00 - 5.20 x10*6/uL Hemoglobin 14.1 12.0 - 16.0 g/dL Hematocrit 44.1 36.0 - 46.0 % MCV 90 80 - 100 fL MCH 28.8 26.0 - 34.0 pg MCHC 32.0 32.0 - 36.0 g/dL RDW 12.0 11.5 - 14.5 % Platelets 181 150 - 450 x10*3/uL Neutrophils % 56.7 40.0 - 80.0 % Immature Granulocytes %, Automated 0.4 0.0 - 0.9 % Lymphocytes % 32.7 13.0 - 44.0 % Monocytes % 7.0 2.0 - 10.0 % Eosinophils % 2.1 0.0 - 6.0 % Basophils % 1.1 0.0 - 2.0 % Neutrophils Absolute 3.17 1.20 - 7.70 x10*3/uL Immature Granulocytes Absolute, Automated 0.02 0.00 - 0.70 x10*3/uL Lymphocytes Absolute 1.83 1.20 - 4.80 x10*3/uL Monocytes Absolute 0.39 0.10 - 1.00 x10*3/uL Eosinophils Absolute 0.12 0.00 - 0.70 x10*3/uL Basophils Absolute 0.06 0.00 - 0.10 x10*3/uL Comprehensive metabolic panel Result Value Ref Range Glucose 505 (HH) 74 - 99 mg/dL Sodium 131 (L) 136 - 145 mmol/L Potassium 4.1 3.5 - 5.3 mmol/L Chloride 101 98 - 107 mmol/L Bicarbonate 21 21 - 32 mmol/L Anion Gap 13 10 - 20 mmol/L Urea Nitrogen 13 6 - 23 mg/dL Creatinine 0.81 0.50 - 1.05 mg/dL eGFR >90 >60 mL/min/1.73m*2 Calcium 8.8 8.6 - 10.3 mg/dL Albumin 4.2 3.4 - 5.0 g/dL Alkaline Phosphatase 249 (H) 33 - 110 U/L Total Protein 7.1 6.4 - 8.2 g/dL AST 137 (H) 9 - 39 U/L Bilirubin, Total 0.4 0.0 - 1.2 mg/dL ALT 218 (H) 7 - 45 U/L Lipase Result Value Ref Range Lipase 62 9 - 82 U/L Beta Hydroxybutyrate Result Value Ref Range Beta-Hydroxybutyrate 0.18 0.02 - 0.27 mmol/L POCT GLUCOSE Result Value Ref Range POCT Glucose 461 (H) 74 - 99 mg/dL POCT GLUCOSE Result Value Ref Range POCT Glucose 317 (H) 74 - 99 mg/dL POCT GLUCOSE Result Value Ref Range POCT Glucose 250 (H) 74 - 99 mg/dL CT abdomen pelvis w IV contrast Result Date: 08/31/2023 Interpreted By: Miky Mccann, STUDY: CT ABDOMEN PELVIS W IV CONTRAST; 08/31/2023 12:09 pm INDICATION: Signs/Symptoms:RUQ abd pain. COMPARISON: 06/16/2023. ACCESSION NUMBER(S): [id number] ORDERING CLINICIAN: HOLLEY GARNER TECHNIQUE: Contiguous axial images were obtained through the abdomen and pelvis after the administration of 69 mL Omnipaque 350 intravenous contrast. Coronal and sagittal reformations were made. FINDINGS: LOWER CHEST: Lung bases are clear. ABDOMEN: LIVER: Liver is enlarged measuring 20 cm in craniocaudal dimension. Diffuse fatty infiltration of the liver is again seen. BILE DUCTS: Nondilated. GALLBLADDER: Surgically absent. PANCREAS: Within normal limits. SPLEEN: Within normal limits. ADRENAL GLANDS: Within normal limits. KIDNEYS AND URETERS: The kidneys enhance symmetrically without focal lesion. No hydroureteronephrosis bilaterally. Urinary bladder is unremarkable. VESSELS: There is no aneurysmal dilatation of the abdominal aorta. The IVC is within normal limits. BOWEL: No bowel obstruction. Appendix is normal. No focal diverticular disease. PERITONEUM/RETROPERITONEUM/LYMPH NODES: No ascites or free air, no fluid collection. No retroperitoneal fluid collection or lymphadenopathy. ABDOMINAL WALL: Unremarkable. BONE AND SOFT TISSUE: There is L5 left unilateral spondylolysis without spondylolisthesis. Hepatomegaly and diffuse fatty infiltration of the liver. Previous cholecystectomy. No biliary dilation. Normal appendix. No bowel obstruction. MACRO: None. Signed by: Miky Mccann 08/31/2023 12:25 PM Dictation workstation: [id number] CT head wo IV contrast Result Date: 08/31/2023 Interpreted By: Miky Mccann, STUDY: CT HEAD WO IV CONTRAST; 08/31/2023 12:09 pm INDICATION: Signs/Symptoms:dizziness. COMPARISON: None. ACCESSION NUMBER(S): [id number] ORDERING CLINICIAN: HOLLEY GARNER TECHNIQUE: Contiguous unenhanced axial images were obtained through the brain. FINDINGS: INTRACRANIAL: No acute intracranial bleed, midline shift, or mass effect is seen. Swanson-white differentiation is maintained. No extra-axial fluid collection or hydrocephalus. Bones are intact. EXTRACRANIAL: Visualized paranasal sinuses and mastoids are clear. No acute intracranial process. MACRO: None. Signed by: Miky Mccann 08/31/2023 12:17 PM Dictation workstation: [id number] Assessment/Plan Principal Problem: Hyperglycemia 37-year-old female with history of Obesity Diabetes mellitus type 2 Migraine GERD Depression Generalized anxiety disorder Presented with Dizziness and uncontrolled hyperglycemia, near syncope with fatigue Ataxia possible diabetic neuropathy Right upper quadrant pain/epigastric pain with GERD ruled out ACS Transaminitis/nonalcoholic fatty liver disease Sore throat possible viral illness Plan Cardiopulmonary monitoring Hydrate with normal saline at 125 cc/h Lantus 32 units subcu daily Insulin sliding scale and monitor fingerstick Full liquids to advance as tolerated to carb controlled diet Antiemetics Supportive care Protonix 40 Mg daily for GERD Morphine IV as ordered for pain control Continue home medicines as tolerated On fluoxetine 20 mg daily Education counseling Topamax 50 mg twice daily Meclizine 25 mg p.o. 3 times daily On B12 supplement Also Abilify 5 mg daily for psychiatric issues Can check flu, COVID-19 and RSV Lipase negative and no acute pancreatitis on imaging Urinalysis no infection If no improvement, consider PT, will benefit from disequilibrium exercises Encourage weight loss, check TSH Healthy diet Trend LFTs Check MRI brain to evaluate dizziness, after test to be on safe side Follow endocrine outpatient Follow vitals Daily labs CBC If no improvement in LFTs then consult gastroenterology inpatient otherwise can follow outpatient Continue home medicines colestyramine 4 g twice daily No jaundice, check PT/INR Encourage ambulation, SCDs for DVT prophylaxis Further management as clinical course evolves [facility]co Mo [facility] Phone: 1([phone]) 347-424905-12-2024 Plan of care note* Care Plan - Gila Aviles RN - 08/31/2023 5:21 PM EDT Problem: Psychosocial Needs Goal: Collaborate with me, my family, and caregiver to identify my specific goals Recent Flowsheet Documentation Taken 08/31/2023 1557 by Gila Aviles RN Cultural Requests During Hospitalization: none Spiritual Requests During Hospitalization: none [facility] Work Phone: 1(293) 201-518105-12-2024 Emergency department Note* Holley Garner PA-C - 08/31/2023 10:13 AM EDTAssociated Order(s): ECG 12 Lead Patient is a 37-year-old female who presents to the emergency room with a chief complaint of right upper quadrant abdominal pain and dizziness. Patient states that she is a type II diabetic. She states that her blood glucose levels have been extremely high over the past month. She states that they regularly run between 4-600. She states that she is on a long-acting and short acting insulin. She states that her last dose of insulin was yesterday evening. She states that when her blood glucose gets this high she does become dizzy. She states that it feels as if she may pass out. She denies a headache or vision changes. She denies any chest pain or shortness of breath. No fever or chills. She states that she has right upper quadrant pain that she has had for couple of months that is worse today. She states that eating does make the pain worse. She states that she does have a fatty liver and feels that it is getting worse. She denies nausea or vomiting. No urinary symptoms. Review of Systems Constitutional: Negative for chills and fever. HENT: Negative for ear pain and sore throat. Eyes: Negative for pain and visual disturbance. Respiratory: Negative for cough, shortness of breath and wheezing. Cardiovascular: Negative for chest pain and palpitations. Gastrointestinal: Positive for abdominal pain. Negative for diarrhea, nausea and vomiting. Genitourinary: Negative for dysuria and hematuria. Musculoskeletal: Negative for arthralgias and back pain. Skin: Negative for color change and rash. Neurological: Positive for dizziness. Negative for seizures, syncope and headaches. All other systems reviewed and are negative. Physical Exam Vitals and nursing note reviewed. Constitutional: General: She is not in acute distress. Appearance: Normal appearance. She is well-developed. HENT: Head: Normocephalic and atraumatic. Right Ear: Tympanic membrane, ear canal and external ear normal. Left Ear: Tympanic membrane, ear canal and external ear normal. Nose: Nose normal. No congestion or rhinorrhea. Eyes: Extraocular Movements: Extraocular movements intact. Conjunctiva/sclera: Conjunctivae normal. Pupils: Pupils are equal, round, and reactive to light. Cardiovascular: Rate and Rhythm: Normal rate and regular rhythm. Heart sounds: No murmur heard. Pulmonary: Effort: Pulmonary effort is normal. No respiratory distress. Breath sounds: Normal breath sounds. Abdominal: General: There is no distension. Palpations: Abdomen is soft. There is no mass. Tenderness: There is abdominal tenderness (right upper quadrant tenderness). There is no right CVA tenderness, left CVA tenderness, guarding or rebound. Hernia: No hernia is present. Musculoskeletal: General: No swelling. Cervical back: Neck supple. Skin: General: Skin is warm and dry. Capillary Refill: Capillary refill takes less than 2 seconds. Neurological: Mental Status: She is alert. Psychiatric: Mood and Affect: Mood normal. Labs Reviewed COMPREHENSIVE METABOLIC PANEL - Abnormal Result Value Glucose 505 (*) Sodium 131 (*) Potassium 4.1 Chloride 101 Bicarbonate 21 Anion Gap 13 Urea Nitrogen 13 Creatinine 0.81 eGFR >90 Calcium 8.8 Albumin 4.2 Alkaline Phosphatase 249 (*) Total Protein 7.1 AST 137 (*) Bilirubin, Total 0.4 ALT 218 (*) URINALYSIS WITH REFLEX CULTURE AND MICROSCOPIC - Abnormal Color, Urine Straw Appearance, Urine Clear Specific [place], Urine 1.032 pH, Urine 5.0 Protein, Urine NEGATIVE Glucose, Urine >=500 (3+) (*) Blood, Urine LARGE (3+) (*) Ketones, Urine NEGATIVE Bilirubin, Urine NEGATIVE Urobilinogen, Urine <2.0 Nitrite, Urine NEGATIVE Leukocyte Esterase, Urine NEGATIVE POCT GLUCOSE - Abnormal POCT Glucose 434 (*) POCT GLUCOSE - Abnormal POCT Glucose 461 (*) POCT GLUCOSE - Abnormal POCT Glucose 317 (*) TROPONIN I, HIGH SENSITIVITY - Normal Troponin I, High Sensitivity 4 Narrative: Less than 99th percentile of normal range cutoff- Female and children under 18 years old <14 ng/L; Male <21 ng/L: Negative Repeat testing should be performed if clinically indicated. Female and children under 18 years old 14-50 ng/L; Male 21-50 ng/L: Consistent with possible cardiac damage and possible increased clinical risk. Serial measurements may help to assess extent of myocardial damage. >50 ng/L: Consistent with cardiac damage, increased clinical risk and myocardial infarction. Serial measurements may help assess extent of myocardial damage. NOTE: Children less than 1 year old may have higher baseline troponin levels and results should be interpreted in conjunction with the overall clinical context. NOTE: Troponin I testing is performed using a different testing methodology at [facility] than at other [facility]. Direct result comparisons should only be made within the same method. LIPASE - Normal Lipase 62 Narrative: Venipuncture immediately after or during the administration of Metamizole may lead to falsely low results. Testing should be performed immediately prior to Metamizole dosing. BETA HYDROXYBUTYRATE - Normal Beta-Hydroxybutyrate 0.18 Narrative: The beta-hydroxybutyrate test performance characteristics have been validated by [facility]. This test has not been approved by the FDA; however, such approval is not necessary. HCG, URINE, QUALITATIVE - Normal HCG, Urine NEGATIVE CBC WITH AUTO DIFFERENTIAL WBC 5.6 nRBC 0.0 RBC 4.90 Hemoglobin 14.1 Hematocrit 44.1 MCV 90 MCH 28.8 MCHC 32.0 RDW 12.0 Platelets 181 Neutrophils % 56.7 Immature Granulocytes %, Automated 0.4 Lymphocytes % 32.7 Monocytes % 7.0 Eosinophils % 2.1 Basophils % 1.1 Neutrophils Absolute 3.17 Immature Granulocytes Absolute, Automated 0.02 Lymphocytes Absolute 1.83 Monocytes Absolute 0.39 Eosinophils Absolute 0.12 Basophils Absolute 0.06 URINALYSIS WITH REFLEX CULTURE AND MICROSCOPIC Narrative: The following orders were created for panel order Urinalysis with Reflex Culture and Microscopic. Procedure Abnormality Status --------- ------ Urinalysis with Reflex C...[[id number]] Abnormal Final result Extra Urine Swanson Tube[[id number]] In process Please view results for these tests on the individual orders. EXTRA URINE SWANSON TUBE URINALYSIS MICROSCOPIC WITH REFLEX CULTURE WBC, Urine 1-5 RBC, Urine NONE Squamous Epithelial Cells, Urine 1-9 (SPARSE) CT head wo IV contrast Final Result No acute intracranial process. MACRO: None. Signed by: Miky Mccann 08/31/2023 12:17 PM Dictation workstation: Shahiya CT abdomen pelvis w IV contrast Final Result Hepatomegaly and diffuse fatty infiltration of the liver. Previous cholecystectomy. No biliary dilation. Normal appendix. No bowel obstruction. MACRO: None. Signed by: Miky Mccann 08/31/2023 12:25 PM Dictation workstation: [id number] ECG 12 Lead Performed by: Holley Garner PA-C Authorized by: Holley Garner PA-C ECG interpreted by ED Physician in the absence of a coordinate measuring machine technician: yes Comments: EKG shows NSR with a rate of [address] elevation. MT interval is 138ms and QRS duration is 82 ms. EKG interpretation per myself, Holley Garner Medical Decision Making Patient is a type II diabetic who is poorly controlled on insulin. Her blood glucose was 505. No evidence of DKA with a bicarb of 21 and anion gap of 13. Beta hydroxybutyrate is within normal limits.Patient was treated with insulin and her glucose has improved after insulin and fluids. Patient presented as she was having dizziness which has been present since awakening this morning and right upper quadrant abdominal pain with hx of fatty liver disease. Elevated lfts which are chronic and actually improved. CT scan of the abdomen pelvis shows no acute process. Patient states that she feels boby she is going to pass out when she ambulates and she has somewhat of an ataxic/unsteady gait. It did improve slightly with Antivert but is still present upon ambulation. Given that her dizziness isstill present and she has an unsteady gait she is recommended for admission, if symptoms persist MRI is recommended. Stroke alert not called as there are no focal deficits and patient has had dizziness upon wakening Amount and/or Complexity of Data Reviewed Labs: ordered. Decision-making details documented in ED Course. Radiology: ordered. Decision-making details documented in ED Course. ECG/medicine tests: ordered and independent interpretation performed. Decision- making details documented in ED Course. Holley Garner PA-C 08/31/23 1407 Associated attestation - Ramesh Serrano DO - 08/31/2023 2:54 PM EDT I personally saw the patient and made/approved the management plan and take responsibility for the patient management. History: 37-year-old female presents emergency room with chief complaint of right upper quadrant abdominal pain. Patient also having dizziness. States she feels like she is going to pass out. Patientstates her glucose has been elevated. Denies any headache, vision changes, neck pain, chest pain, shortness of breath, urinary symptoms. Exam: Tenderness to palpation of right upper quadrant. Negative Hoyt sign. No focal neurologic deficit. S1-S2 appreciated without murmur. Lungs clear bilaterally. MDM: Hyperglycemia of 505. No evidence of DKA. Elevated liver enzymes with history of fatty liver disease which is improved from previous. CT of the abdomen pelvis negative. CT brain negative. Patient treated with Antivert without significant improvement. Patient will be admitted for further treatment and evaluation. Stable at time of admission. Diagnosis: 1. Dizziness 2. Right upper quadrant abdominal pain 3. Transaminitis 4. Hyperglycemia Ramesh Serrano DO Emergency Medicine documented in this [facility] Work Phone: [phone]) 274-685605-12-2024 Physician Emergency department Note* Holley Garner PA-C - 08/31/2023 10:13 AM EDTAssociated Order(s): ECG 12 Lead Patient is a 37-year-old female who presents to the emergency room with a chief complaint of right upper quadrant abdominal pain and dizziness. Patient states that she is a type II diabetic. She states that her blood glucose levels have been extremely high over the past month. She states that they regularly run between 4-600. She states that she is on a long-acting and short acting insulin. She states that her last dose of insulin was yesterday evening. She states that when her blood glucose gets this high she does become dizzy. She states that it feels as if she may pass out. She denies a headache or vision changes. She denies any chest pain or shortness of breath. No fever or chills. She states that she has right upper quadrant pain that she has had for couple of months that is worse today. She states that eating does make the pain worse. She states that she does have a fatty liver and feels that it is getting worse. She denies nausea or vomiting. No urinary symptoms. Review of Systems Constitutional: Negative for chills and fever. HENT: Negative for ear pain and sore throat. Eyes: Negative for pain and visual disturbance. Respiratory: Negative for cough, shortness of breath and wheezing. Cardiovascular: Negative for chest pain and palpitations. Gastrointestinal: Positive for abdominal pain. Negative for diarrhea, nausea and vomiting. Genitourinary: Negative for dysuria and hematuria. Musculoskeletal: Negative for arthralgias and back pain. Skin: Negative for color change and rash. Neurological: Positive for dizziness. Negative for seizures, syncope and headaches. All other systems reviewed and are negative. Physical Exam Vitals and nursing note reviewed. Constitutional: General: She is not in acute distress. Appearance: Normal appearance. She is well-developed. HENT: Head: Normocephalic and atraumatic. Right Ear: Tympanic membrane, ear canal and external ear normal. Left Ear: Tympanic membrane, ear canal and external ear normal. Nose: Nose normal. No congestion or rhinorrhea. Eyes: Extraocular Movements: Extraocular movements intact. Conjunctiva/sclera: Conjunctivae normal. Pupils: Pupils are equal, round, and reactive to light. Cardiovascular: Rate and Rhythm: Normal rate and regular rhythm. Heart sounds: No murmur heard. Pulmonary: Effort: Pulmonary effort is normal. No respiratory distress. Breath sounds: Normal breath sounds. Abdominal: General: There is no distension. Palpations: Abdomen is soft. There is no mass. Tenderness: There is abdominal tenderness (right upper quadrant tenderness). There is no right CVA tenderness, left CVA tenderness, guarding or rebound. Hernia: No hernia is present. Musculoskeletal: General: No swelling. Cervical back: Neck supple. Skin: General: Skin is warm and dry. Capillary Refill: Capillary refill takes less than 2 seconds. Neurological: Mental Status: She is alert. Psychiatric: Mood and Affect: Mood normal. Labs Reviewed COMPREHENSIVE METABOLIC PANEL - Abnormal Result Value Glucose 505 (*) Sodium 131 (*) Potassium 4.1 Chloride 101 Bicarbonate 21 Anion Gap 13 Urea Nitrogen 13 Creatinine 0.81 eGFR >90 Calcium 8.8 Albumin 4.2 Alkaline Phosphatase 249 (*) Total Protein 7.1 AST 137 (*) Bilirubin, Total 0.4 ALT 218 (*) URINALYSIS WITH REFLEX CULTURE AND MICROSCOPIC - Abnormal Color, Urine Straw Appearance, Urine Clear Specific [place], Urine 1.032 pH, Urine 5.0 Protein, Urine NEGATIVE Glucose, Urine >=500 (3+) (*) Blood, Urine LARGE (3+) (*) Ketones, Urine NEGATIVE Bilirubin, Urine NEGATIVE Urobilinogen, Urine <2.0 Nitrite, Urine NEGATIVE Leukocyte Esterase, Urine NEGATIVE POCT GLUCOSE - Abnormal POCT Glucose 434 (*) POCT GLUCOSE - Abnormal POCT Glucose 461 (*) POCT GLUCOSE - Abnormal POCT Glucose 317 (*) TROPONIN I, HIGH SENSITIVITY - Normal Troponin I, High Sensitivity 4 Narrative: Less than 99th percentile of normal range cutoff- Female and children under 18 years old <14 ng/L; Male <21 ng/L: Negative Repeat testing should be performed if clinically indicated. Female and children under 18 years old 14-50 ng/L; Male 21-50 ng/L: Consistent with possible cardiac damage and possible increased clinical risk. Serial measurements may help to assess extent of myocardial damage. >50 ng/L: Consistent with cardiac damage, increased clinical risk and myocardial infarction. Serial measurements may help assess extent of myocardial damage. NOTE: Children less than 1 year old may have higher baseline troponin levels and results should be interpreted in conjunction with the overall clinical context. NOTE: Troponin I testing is performed using a different testing methodology at [facility] than at other [facility]. Direct result comparisons should only be made within the same method. LIPASE - Normal Lipase 62 Narrative: Venipuncture immediately after or during the administration of Metamizole may lead to falsely low results. Testing should be performed immediately prior to Metamizole dosing. BETA HYDROXYBUTYRATE - Normal Beta-Hydroxybutyrate 0.18 Narrative: The beta-hydroxybutyrate test performance characteristics have been validated by [facility]. This test has not been approved by the FDA; however, such approval is not necessary. HCG, URINE, QUALITATIVE - Normal HCG, Urine NEGATIVE CBC WITH AUTO DIFFERENTIAL WBC 5.6 nRBC 0.0 RBC 4.90 Hemoglobin 14.1 Hematocrit 44.1 MCV 90 MCH 28.8 MCHC 32.0 RDW 12.0 Platelets 181 Neutrophils % 56.7 Immature Granulocytes %, Automated 0.4 Lymphocytes % 32.7 Monocytes % 7.0 Eosinophils % 2.1 Basophils % 1.1 Neutrophils Absolute 3.17 Immature Granulocytes Absolute, Automated 0.02 Lymphocytes Absolute 1.83 Monocytes Absolute 0.39 Eosinophils Absolute 0.12 Basophils Absolute 0.06 URINALYSIS WITH REFLEX CULTURE AND MICROSCOPIC Narrative: The following orders were created for panel order Urinalysis with Reflex Culture and Microscopic. Procedure Abnormality Status --------- ------ Urinalysis with Reflex C...[[id number]] Abnormal Final result Extra Urine Swanson Tube[[id number]] In process Please view results for these tests on the individual orders. EXTRA URINE SWANSON TUBE URINALYSIS MICROSCOPIC WITH REFLEX CULTURE WBC, Urine 1-5 RBC, Urine NONE Squamous Epithelial Cells, Urine 1-9 (SPARSE) CT head wo IV contrast Final Result No acute intracranial process. MACRO: None. Signed by: Miky Mccann 08/31/2023 12:17 PM Dictation workstation: [id number] CT abdomen pelvis w IV contrast Final Result Hepatomegaly and diffuse fatty infiltration of the liver. Previous cholecystectomy. No biliary dilation. Normal appendix. No bowel obstruction. MACRO: None. Signed by: Miky Mccann 08/31/2023 12:25 PM Dictation workstation: [id number] ECG 12 Lead Performed by: Holley Garner PA-C Authorized by: Holley Garner PA-C ECG interpreted by ED Physician in the absence of a coordinate measuring machine technician: yes Comments: EKG shows NSR with a rate of [address] elevation. MT interval is 138ms and QRS duration is 82 ms. EKG interpretation per myself, Holley Garner Medical Decision Making Patient is a type II diabetic who is poorly controlled on insulin. Her blood glucose was 505. No evidence of DKA with a bicarb of 21 and anion gap of 13. Beta hydroxybutyrate is within normal limits.Patient was treated with insulin and her glucose has improved after insulin and fluids. Patient presented as she was having dizziness which has been present since awakening this morning and right upper quadrant abdominal pain with hx of fatty liver disease. Elevated lfts which are chronic and actually improved. CT scan of the abdomen pelvis shows no acute process. Patient states that she feels boby she is going to pass out when she ambulates and she has somewhat of an ataxic/unsteady gait. It did improve slightly with Antivert but is still present upon ambulation. Given that her dizziness isstill present and she has an unsteady gait she is recommended for admission, if symptoms persist MRI is recommended. Stroke alert not called as there are no focal deficits and patient has had dizziness upon wakening Amount and/or Complexity of Data Reviewed Labs: ordered. Decision-making details documented in ED Course. Radiology: ordered. Decision-making details documented in ED Course. ECG/medicine tests: ordered and independent interpretation performed. Decision- making details documented in ED Course. Holley Garner PA-C 08/31/23 1407 Associated attestation - Ramesh Serrano DO - 08/31/2023 2:54 PM EDT I personally saw the patient and made/approved the management plan and take responsibility for the patient management. History: 37-year-old female presents emergency room with chief complaint of right upper quadrant abdominal pain. Patient also having dizziness. States she feels like she is going to pass out. Patientstates her glucose has been elevated. Denies any headache, vision changes, neck pain, chest pain, shortness of breath, urinary symptoms. Exam: Tenderness to palpation of right upper quadrant. Negative Hoyt sign. No focal neurologic deficit. S1-S2 appreciated without murmur. Lungs clear bilaterally. MDM: Hyperglycemia of 505. No evidence of DKA. Elevated liver enzymes with history of fatty liver disease which is improved from previous. CT of the abdomen pelvis negative. CT brain negative. Patient treated with Antivert without significant improvement. Patient will be admitted for further treatment and evaluation. Stable at time of admission. Diagnosis: 1. Dizziness 2. Right upper quadrant abdominal pain 3. Transaminitis 4. Hyperglycemia Ramesh Serrano, Emergency Medicine [facility] Work Phone: 1([phone]) 387-538204-25-2024 Evaluation + Plan note* Assessment & Plan Note - Rach Ballesteros APRN-[employer] WORK[employer] - 08/14/2023 4:06 PM EDTAssociated Problem(s): Hepatic steatosis 37 year old with Metabolic Dysfunction Associated Steatotohepatitis (MASH) without advanced fibrosis. Biopsy proven MASH. Newly dx T2DM, now on insulin. Discussed diagnosis at length and treatment options including new drug Rezdiffra. She is interested in possibly pursuing this treatment if labs are stable. However diet and exerciseis highly recommended to aide in weight loss and management of MASH. No concern for liver dysfunction. Recommend benefiber for IBS which will help her RUQ discomfort. The following was discussed at length: Exercise/Activity: Vigorous physical activity like brisk walking or structured gym exercises 3 times a week for 30 minutes at minimum. Resistance training to build muscle mass which will aid in weight loss. Swimming, water aerobics are excellent forms of exercises that are easy on joints. Diet: Avoid/Limit simple carbs including simple sugars Avoid eating foods that are rich in sugar in excess such as high sugar content fruits (pineapple, julien...) and desserts, cakes and pies Eat more good foods that are rich in good fat such as cold water fish (salmon, swordfish...) as well as avocados and peanut butter in moderation Snack on nuts that are high in protein and good oils such as walnuts, almonds. Eat a mediteranean diet which is rich in grilled lean meats, high protein beans and legumes and olive oil Exercise for 30 minutes or more at least 3 times a week focus on exercises that build muscle mass like working with weights and lifting. Try swimming or water aerobics if you have access to a pool Aim to lose 7-10% of your total body weight over 6-12 months FU in 3 months. [facility] Work Phone: [phone]) 556-981704-25-2024 Miscellaneous Notes* Assessment & Plan Note - BENJAMIN Medina - 08/14/2023 4:06 PM EDTAssociated Problem(s): Hepatic steatosis 37 year old with Metabolic Dysfunction Associated Steatotohepatitis (MASH) without advanced fibrosis. Biopsy proven MASH. Newly dx T2DM, now on insulin. Discussed diagnosis at length and treatment options including new drug Rezdiffra. She is interested in possibly pursuing this treatment if labs are stable. However diet and exerciseis highly recommended to aide in weight loss and management of MASH. No concern for liver dysfunction. Recommend benefiber for IBS which will help her RUQ discomfort. The following was discussed at length: Exercise/Activity: Vigorous physical activity like brisk walking or structured gym exercises 3 times a week for 30 minutes at minimum. Resistance training to build muscle mass which will aid in weight loss. Swimming, water aerobics are excellent forms of exercises that are easy on joints. Diet: Avoid/Limit simple carbs including simple sugars Avoid eating foods that are rich in sugar in excess such as high sugar content fruits (pineapple, julien...) and desserts, cakes and pies Eat more good foods that are rich in good fat such as cold water fish (salmon, swordfish...) as well as avocados and peanut butter in moderation Snack on nuts that are high in protein and good oils such as walnuts, almonds. Eat a mediteranean diet which is rich in grilled lean meats, high protein beans and legumes and olive oil Exercise for 30 minutes or more at least 3 times a week focus on exercises that build muscle mass like working with weights and lifting. Try swimming or water aerobics if you have access to a pool Aim to lose 7-10% of your total body weight over 6-12 months FU in 3 months. * Assessment & Plan Note - BENJAMIN Medina - 08/14/2023 4:02 PM EDT Associated Problem(s): Transaminitis Will update labs today. Previous transaminitis suspected to be related to MASH and DM. [facility] Work Phone: [phone]) 757-662004-25-2024 Evaluation + Plan note* Assessment & Plan Note - BENJAMIN Medina - 08/14/2023 4:02 PM EDTAssociated Problem(s): Transaminitis Will update labs today. Previous transaminitis suspected to be related to MASH and DM. [facility] Work Phone: 1([phone]) 590-543104-25-2024 History of Present illness Narrative* BENJAMIN Medina - 08/14/2023 3:20 PM EDT Subjective Patient ID: Anahi Dwyer is a 37 y.o. female who presents for evaluation for hepatic steatosis. HPI 37 year old referred for recent diagnosis of hepatic steatosis. She has a history IBS, JUANA, PTSD, PVC and was admitted in May 2023 with RUQ pain and transaminitis. She was having severe nausea and vomiting at home which prompted her to go to the ED. She was found to have ALT 219, AST 159, Alk Phos 262. She was also found to have a glucose of over 500. She was discharged home on insulin and is following with endocrinology. She had imaging which showed enlarged liver with hepatic steatosis. As an outpatient, she underwent liver biopsy which confirmed EWING with perisinusoidal fibrosis. Liver disease work-up was negative for autoimmune liver disease or viral hepatitis. No history of jaundice, icterus, bleeding, edema, confusion. She continues to have RUQ pain with irregular bowel movements.. She complains of itching. LABS: Lab Results Component Value Date ALBUMIN 4.2 06/20/2023 BILITOT 0.6 06/20/2023 BILIDIR 0.0 06/02/2023 ALKPHOS 215 (H) 06/20/2023 ALT 222 (H) 06/20/2023 AST 234 (H) 06/20/2023 PROT 7.2 06/20/2023 PAULETTE Negative 06/12/2023 MITOAB Negative 06/12/2023 CERULOPLSM 31.4 06/12/2023 ASMAB Negative 06/12/2023 HEPBSAG Nonreactive 06/12/2023 HEPCAB Nonreactive 06/12/2023 INR 1.2 (H) 06/19/2023 FERRITIN 537 (H) 07/17/2023 IRON 97 07/17/2023 IRONSAT 26 07/17/2023 Lab Results Component Value Date ALBUMIN 4.2 06/20/2023 BILITOT 0.6 06/20/2023 BILIDIR 0.0 06/02/2023 ALKPHOS 215 (H) 06/20/2023 ALT 222 (H) 06/20/2023 AST 234 (H) 06/20/2023 PROT 7.2 06/20/2023 Lab Results Component Value Date WBC 8.4 06/20/2023 HGB 13.0 06/20/2023 HCT 41.6 06/20/2023 MCV 91 06/20/2023 PLT 217 06/20/2023 Lab Results Component Value Date HEPCAB Nonreactive 06/12/2023 Review of Systems Constitutional: Negative for appetite change, chills, fever and unexpected weight change. HENT: Negative for mouth sores, nosebleeds, trouble swallowing and voice change. Eyes: Negative for visual disturbance. Respiratory: Negative for cough, shortness of breath and wheezing. Cardiovascular: Negative for chest pain, palpitations and leg swelling. Gastrointestinal: Positive for abdominal pain and constipation. Negative for abdominal distention, blood in stool, diarrhea, nausea and vomiting. Genitourinary: Negative for decreased urine volume, difficulty urinating, dysuria, frequency, hematuria and urgency. Musculoskeletal: Negative for gait problem and joint swelling. Skin: Negative for color change, pallor and rash. Neurological: Negative for dizziness, tremors, weakness, light-headedness, numbness and headaches. Hematological: Does not bruise/bleed easily. Psychiatric/Behavioral: Negative for agitation, behavioral problems, confusion and sleep disturbance. LABS: Lab Results Component Value Date CASEREPORT 06/20/2023 Surgical Pathology Case: [id number] Authorizing Provider: Desmond Lai PA-C Collected: 06/20/2023 1051 Ordering Location: [facility] [place] Received: 06/20/[address] [place] [address] Pathologist: Emilia Daigle MD PhD Specimen: LIVER BIOPSY RIGHT FINALDX 06/20/2023 A. LIVER BIOPSY RIGHT: -Steatohepatitis with moderate steatosis and perisinusoidal fibrosis Note: The liver shows 55-60% macrovesicular steatosis with ballooning degeneration and Jackie bodies. Multiple foci of neutrophilic inflammation are present, with rare hepatocyte necrosis. There is no significant portal inflammation, bile duct injury, or cholestasis. Special stains: Iron trace PAS with digestion no cytoplasmic eosinophilic globules Trichrome perisinusoidal Reticulin no collapsed liver parenchyma CLINDIAG 06/20/2023 fatty liver GROSSDES 06/20/2023 A: Received in formalin, labeled with the patient's name and hospital number and liver BX R, are multiple cylindrical segments of mayo-red soft tissue measuring 0.9 cm, 0.9 cm, and 1.1 cm in length by < 0.1 cm in diameter. The specimen is submitted in toto in two cassettes. DMB Objective Physical Exam Constitutional: General: She is awake. Appearance: Normal appearance. She is well-developed. HENT: Head: Normocephalic and atraumatic. Right Ear: Hearing normal. Left Ear: Hearing normal. Nose: Nose normal. Mouth/Throat: Lips: Boley. Mouth: Mucous membranes are moist. Eyes: General: Lids are normal. Extraocular Movements: Extraocular movements intact. Conjunctiva/sclera: Conjunctivae normal. Pupils: Pupils are equal, round, and reactive to light. Cardiovascular: Rate and Rhythm: Normal rate and regular rhythm. Pulses: Normal pulses. Heart sounds: Normal heart sounds. Pulmonary: Effort: Pulmonary effort is normal. Breath sounds: Normal breath sounds. Abdominal: General: Abdomen is flat. Bowel sounds are normal. Palpations: Abdomen is soft. There is hepatomegaly. Musculoskeletal: Cervical back: Normal range of motion and neck supple. Feet: Right foot: Skin integrity: Skin integrity normal. Left foot: Skin integrity: Skin integrity normal. Skin: General: Skin is warm. Neurological: General: No focal deficit present. Mental Status: She is alert and oriented to person, place, and time. Cranial Nerves: Cranial nerves 2-12 are intact. Sensory: Sensation is intact. Motor: Motor function is intact. Coordination: Coordination is intact. Gait: Gait is intact. Psychiatric: Attention and Perception: Attention and perception normal. Mood and Affect: Mood normal. Speech: Speech normal. Behavior: Behavior is cooperative. Thought Content: Thought content normal. Cognition and Memory: Cognition normal. Judgment: Judgment normal. Assessment/Plan Problem List Items Addressed This Visit ICD-10-CM Transaminitis R74.01 Will update labs today. Previous transaminitis suspected to be related to MASH and DM. Relevant Orders CBC and Auto Differential Comprehensive Metabolic Panel Follow Up In Hepatology Hepatic steatosis K76.0 37 year old with Metabolic Dysfunction Associated Steatotohepatitis (MASH) without advanced fibrosis. Biopsy proven MASH. Newly dx T2DM, now on insulin. Discussed diagnosis at length and treatment options including new drug Rezdiffra. She is interested in possibly pursuing this treatment if labs are stable. However diet and exerciseis highly recommended to aide in weight loss and management of MASH. No concern for liver dysfunction. Recommend benefiber for IBS which will help her RUQ discomfort. The following was discussed at length: Exercise/Activity: Vigorous physical activity like brisk walking or structured gym exercises 3 times a week for 30 minutes at minimum. Resistance training to build muscle mass which will aid in weight loss. Swimming, water aerobics are excellent forms of exercises that are easy on joints. Diet: Avoid/Limit simple carbs including simple sugars Avoid eating foods that are rich in sugar in excess such as high sugar content fruits (pineapple, julien...) and desserts, cakes and pies Eat more good foods that are rich in good fat such as cold water fish (salmon, swordfish...) as well as avocados and peanut butter in moderation Snack on nuts that are high in protein and good oils such as walnuts, almonds. Eat a mediteranean diet which is rich in grilled lean meats, high protein beans and legumes and olive oil Exercise for 30 minutes or more at least 3 times a week focus on exercises that build muscle mass like working with weights and lifting. Try swimming or water aerobics if you have access to a pool Aim to lose 7-10% of your total body weight over 6-12 months FU in 3 months. Relevant Orders CBC and Auto Differential Comprehensive Metabolic Panel Follow Up In Hepatology BENJAMIN Medina 08/14/23 4:06 PM documented in this [facility] Work Phone: [phone] 661-245504-24-2024 Instructions* Patient Instructions* Nicolle Arteaga APRN.CNP - 08/13/2023 3:37 PM EDT START METFORMIN Take 1 tab with breakfast, 1 tab with dinner for 1 - 2 week, then increase to 2 tabs with breakfastand 2 tabs with dinner LANTUS Inject 32 units once ADMELOG Inject 10 units with breakfast Inject 10 units with lunch Inject 10 units with dinner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 abdominal pain New onset type 2 diabetes mellitus (CMS/HCC) Hepatic steatosis PTSD (post-traumatic stress disorder) JUANA (generalized anxiety disorder) Other Visit Diagnoses Thyroid enlargement - Primary Relevant Orders US thyroid TSH with reflex to Free T4 if abnormal T4, free Thyroid Peroxidase (TPO) Antibody Thyroglobulin and Antithyroglobulin Type 2 diabetes mellitus without complication, without long-term current use of insulin (CMS/HCC) Relevant Orders Referral to Nutrition Services Follow Up In Primary Care - Established Hemoglobin A1C Hemoglobin A1C Pica Relevant Orders Iron and TIBC Ferritin Chronic RUQ pain - reviewed hospital records - had EGD done which showed mod abnormal mucosa in the stomach and antrum, gastritis - liver bx pending - has follow-up with GI scheduled -Continue Protonix 2. New DMII - A1c increased to 7.3% from 6.1% - refer to water quality specialist -Advised checking blood sugars a few times a week -Discussed trying low-dose metformin to help with some mild weight loss and steatosis declines for now -Repeat A1c in 3 months 3. Thyroid tenderness and abnormal tsh -Repeat thyroid labs in 1 month -Check thyroid ultrasound 4. Depression and anxiety -Continue Abilify 5 mg tablet daily - continue Prozac 20 mg capsule daily 5. Will call with results follow-up in 3 months with repeat A1c Final diagnoses: [E04.9] Thyroid enlargement [E11.9] Type 2 diabetes mellitus without complication, without long-term current use of insulin (CMS/HCC) [F50.89] Pica [E11.9] New onset type 2 diabetes mellitus (CMS/HCC) [R10.11] RUQ abdominal pain [K76.0] Hepatic steatosis [F43.10] PTSD (post-traumatic stress disorder) [F41.1] JUANA (generalized anxiety disorder) [facility]: [phone]) 531-341903-01-2024 Plan of care note* Care Plan - Ayush Bosch RN - 06/20/2023 5:26 PM EST The patient's goals for the shift include decrease in abdominal pain. The clinical goals for the shift include Patient will remain afebrile through end of shift. Patient will discharge to home this evening. [facility]03-01-2024 Miscellaneous Notes* Care Plan - Ayush Bosch RN - 06/20/2023 5:26 PM EST The patient's goals for the shift include decrease in abdominal pain. The clinical goals for the shift include Patient will remain afebrile through end of shift. Patient will discharge to home this evening. * Post-Procedure Note - Moe Clifford, TOOL DISPATCHER-RED CROSS WORKER - 06/20/2023 10:59 AM EST Interventional Radiology Brief Postprocedure Note Attending: Augie Archibald MD Corner Cutter: none Diagnosis: Liver mass Description of procedure: Successful US guided targeted liver mass biopsy. 3 passes made. Anesthesia: MAC Complications: None Estimated Blood Loss: none Medications As of 06/20/23 1059 sodium chloride 0.9% infusion (mL/hr) Total volume: 1,060.66 mL* Dosing weight: 87.1 *From user-documented volume Date/Time Rate/Dose/Volume Action 06/17/23 0216 100 mL/hr New Bag 0224 100 mL/hr - 13.33 mL Rate Verify 0900 100 mL/hr - 714 mL Rate Verify 1220 100 mL/hr - 333.33 mL Rate Verify 1246 0 mL Stopped ondansetron (Zofran) injection 4 mg (mg) Total dose: 32 mg Dosing weight: 87.1 Date/Time Rate/Dose/Volume Action 06/17/23 0736 4 mg Given 1800 4 mg Given 06/18/23 0247 4 mg Given 0856 4 mg Given 1933 4 mg Given 06/19/23 0153 4 mg Given 1814 4 mg Given 06/20/23 0053 4 mg Given ondansetron (Zofran) injection 4 mg (mg) Total dose: 4 mg Dosing weight: 82.1 Date/Time Rate/Dose/Volume Action 06/19/23 1022 4 mg Given insulin lispro (HumaLOG) injection 0-10 Units (Units) Total dose: 8 Units Dosing weight: 87.1 Date/Time Rate/Dose/Volume Action 06/17/23 0216 2 Units Given 0630 *Not included in total Missed 1030 *Not included in total Missed 1430 *Not included in total Missed 1830 *Not included in total Missed 2230 *Not included in total Missed 06/18/23 0230 *Not included in total Missed 0640 2 Units Given 1131 2 Units Given 1430 *Not included in total Missed 1830 *Not included in total Missed 2224 2 Units Given 06/19/23 0230 *Not included in total Missed 0630 *Not included in total Missed 1030 *Not included in total Missed 1430 *Not included in total Missed 1830 *Not included in total Missed 2230 *Not included in total Missed 06/20/23 0230 *Not included in total Missed 0630 *Not included in total Missed pantoprazole (ProtoNix) injection 40 mg (mg) Total dose: 40 mg Dosing weight: 87.1 Date/Time Rate/Dose/Volume Action 06/17/23 0854 40 mg Given ketorolac (Toradol) injection 15 mg (mg) Total dose: 30 mg Dosing weight: 87.1 Date/Time Rate/Dose/Volume Action 06/17/23 0255 15 mg Given 1213 15 mg Given insulin glargine (Lantus) injection 12 Units (Units) Total dose: 48 Units Dosing weight: 87.1 Date/Time Rate/Dose/Volume Action 06/17/23 0854 12 Units Given 06/18/23 1123 12 Units Given 06/19/23 1205 12 Units Given 06/20/23 0842 12 Units Given sennosides-docusate sodium (Bobbi-Colace) 8.6-50 mg per tablet 2 tablet (tablet) Total dose: 4 tablet* Dosing weight: 87.1 *Administration not included in total Date/Time Rate/Dose/Volume Action 06/17/23 0930 *2 tablet Missed 2233 2 tablet Given 06/18/23 0856 2 tablet Given 2100 *2 tablet Missed 06/19/23 0900 *2 tablet Missed 2100 *2 tablet Missed 06/20/23 0900 *2 tablet Missed polyethylene glycol (Glycolax, Miralax) packet 17 g (g) Total dose: 34 g* Dosing weight: 87.1 *Administration not included in total Date/Time Rate/Dose/Volume Action 06/17/23 0930 *17 g Missed 1500 *17 g Missed 2233 17 g Given 06/18/23 0856 17 g Given 1500 *17 g Missed 2100 *17 g Missed 06/19/23 0900 *17 g Missed 1500 *17 g Missed 2100 *17 g Missed 06/20/23 0900 *17 g Missed FLUoxetine (PROzac) capsule 20 mg (mg) Total dose: 40 mg* *Administration not included in total Date/Time Rate/Dose/Volume Action 06/17/23 1213 *Not included in total Held by provider 1230 *20 mg Missed 1717 *Not included in total Unheld by provider 06/18/23 1119 20 mg Given 06/19/23 1202 20 mg Given ARIPiprazole (Abilify) tablet 5 mg (mg) Total dose: 10 mg* Dosing weight: 87.1 *Administration not included in total Date/Time Rate/Dose/Volume Action 06/17/23 1213 *Not included in total Held by provider 1230 *5 mg Missed 1717 *Not included in total Unheld by provider 06/18/23 1118 5 mg Given 06/19/23 1202 5 mg Given loratadine (Claritin) tablet 10 mg (mg) Total dose: 20 mg* Dosing weight: 87.1 *Administration not included in total Date/Time Rate/Dose/Volume Action 06/17/23 1213 *Not included in total Held by provider 1230 *10 mg Missed 1717 *Not included in total Unheld by provider 06/18/23 1119 10 mg Given 06/19/23 1202 10 mg Given minoxidil (Loniten) tablet 1.25 mg (mg) Total dose: 2.5 mg* *Administration not included in total Date/Time Rate/Dose/Volume Action 06/17/23 1213 *Not included in total Held by provider 1230 *1.25 mg Missed 1717 *Not included in total Unheld by provider 06/18/23 1118 1.25 mg Given 06/19/23 1202 1.25 mg Given topiramate (Topamax) tablet 100 mg (mg) Total dose: 200 mg* *Administration not included in total Date/Time Rate/Dose/Volume Action 06/17/23 1213 *Not included in total Held by provider 1230 *100 mg Missed 1717 *Not included in total Unheld by provider 2233 100 mg Given 06/18/23 1119 100 mg Given topiramate (Topamax) tablet 50 mg (mg) Total dose: 100 mg* *Administration not included in total Date/Time Rate/Dose/Volume Action 06/18/23 2100 *50 mg Missed 06/19/23 1202 50 mg Given 2020 50 mg Given dicyclomine (Bentyl) capsule 10 mg (mg) Total dose: 40 mg Dosing weight: 87.1 Date/Time Rate/Dose/Volume Action 06/17/23 1739 10 mg Given 06/18/23 0626 10 mg Given 1999 10 mg Given 06/19/23 1202 10 mg Given pantoprazole (ProtoNix) EC tablet 40 mg (mg) Total dose: 40 mg* Dosing weight: 87.1 *Administration not included in total Date/Time Rate/Dose/Volume Action 06/18/23 0626 40 mg Given 06/19/23 0700 *40 mg Missed 06/20/23 0700 *40 mg Missed prochlorperazine (Compazine) injection 10 mg (mg) Total dose: 30 mg Dosing weight: 87.1 Date/Time Rate/Dose/Volume Action 06/17/23 2227 10 mg Given 06/18/23 1328 10 mg Given 06/19/23 1319 10 mg Given bisacodyl (Dulcolax) suppository 10 mg (mg) Total dose: 10 mg* Dosing weight: 85.3 *Administration not included in total Date/Time Rate/Dose/Volume Action 06/18/23 1124 10 mg Given 06/19/23 0900 *10 mg Missed 06/20/23 0900 *10 mg Missed morphine injection 1 mg (mg) Total dose: 1 mg Dosing weight: 85.3 Date/Time Rate/Dose/Volume Action 06/18/23 1328 1 mg Given morphine injection 2 mg (mg) Total dose: 2 mg Dosing weight: 85.3 Date/Time Rate/Dose/Volume Action 06/19/23 0153 2 mg Given morphine injection 2 mg (mg) Total dose: 6 mg Dosing weight: 85.3 Date/Time Rate/Dose/Volume Action 06/19/23 0436 2 mg Given 1558 2 mg Given 2020 2 mg Given sodium chloride 0.9 % bolus 1,000 mL (mL/hr) Total volume: 1,000 mL* Dosing weight: 85.3 *From user-documented volume Date/Time Rate/Dose/Volume Action 06/19/23 0041 1,000 mL - 1,000 mL/hr (over 60 min) New Bag 0141 1,000 mL Stopped lactated Ringer's infusion (mL/hr) Total volume: 1,818.25 mL* Dosing weight: 85.3 *From user-documented volume Date/Time Rate/Dose/Volume Action 06/19/23 0152 85 mL/hr New Bag 0544 85 mL/hr - 328.67 mL Rate Verify 1019 389.58 mL 1040 100 mL 1700 Stopped 1800 1,000 mL lactated Ringer's infusion (mL/hr) Total volume: 300 mL* Dosing weight: 82.1 *From user-documented volume Date/Time Rate/Dose/Volume Action 06/19/23 1800 300 mL 06/20/23 0227 100 mL/hr New Bag simethicone (Mylicon) drops (mg) Total dose: 300 mg Date/Time Rate/Dose/Volume Action 06/19/23 0944 300 mg Given lidocaine PF (Xylocaine) 10 mg/mL (1 %) injection (mL) Total volume: 10 mL Date/Time Rate/Dose/Volume Action 06/20/23 1045 10 mL Given oxyCODONE (Roxicodone) immediate release tablet 5 mg (mg) Total dose: Cannot be calculated* Dosing weight: 82.1 *Administration dose not documented Date/Time Rate/Dose/Volume Action 06/20/23 Canceled Entry HYDROmorphone (Dilaudid) injection 0.5 mg (mg) Total dose: 1.5 mg Dosing weight: 82.1 Date/Time Rate/Dose/Volume Action 06/19/23 1034 0.5 mg Given 1050 0.5 mg Given 06/20/23 0053 0.5 mg Given fentaNYL PF (Sublimaze) injection (mcg) Total dose: 50 mcg Date/Time Rate/Dose/Volume Action 06/20/23 1044 50 mcg Given midazolam (Versed) injection (mg) Total dose: 2 mg Date/Time Rate/Dose/Volume Action 06/20/23 1044 2 mg Given See detailed result report with images in PACS. The patient tolerated the procedure well without incident or complication and is in stable condition. * Pre-Procedure Note - Augie Archibald MD - 06/20/2023 10:41 AM EST Interventional Radiology Preprocedure Note Indication for procedure: The encounter diagnosis was RUQ abdominal pain. Elevated LFT's, evidence of portal HTN on EGD. Presenting for random liver biopsy. Relevant review of systems: NA Relevant Labs: Lab Results Component Value Date CREATININE 0.81 06/20/2023 EGFR >90 06/20/2023 INR 1.2 (H) 06/19/2023 PROTIME 13.4 (H) 06/19/2023 Planned Sedation/Anesthesia: Moderate Airway assessment: normal Directed physical examination: Awake and alert, oriented No acute distress Regular rate, rhythm Breathing non-labored Mallampati: I (soft palate, uvula, fauces, and tonsillar pillars visible) ASA Score: ASA 3 - Patient with moderate systemic disease with functional limitations Benefits, risks and alternatives of procedure and planned sedation have been discussed with the patient and/or their artist's representative. All questions answered and they agree to proceed. * Care Plan - Dalila Cortes RN - 06/19/2023 9:54 PM EST The patient's goals for the shift include maintaining systolic BP above 100 and blood sugars below 200 The clinical goals for the shift include completed NPO at midnight for IR to biopsy liver * Care Plan - Porfirio Norton APRN-CORINA - 06/19/2023 12:43 PM EST Patient underwent EGD with Dr. Krause today noting gastritis, mild mosaic portal hypertensive gastropathy in the stomach. Normal duodenum. Plan: - continue supportive care - wean narcotics d/t nausea - continue bowel regimen - continue to trend liver enzymes daily - await pathology - IR for liver biopsy given portal HTN on EGD Plan has been discussed with Dr. Campbell. GI will continue to follow. Porfirio Norton APRN/CORINA * Care Plan - Emy Kohli RN - 06/19/2023 12:25 PM EST Problem: Skin Goal: Decreased wound size/increased tissue granulation at next dressing change Flowsheets (Taken 06/19/2023 1223) Decreased wound size/increased tissue granulation at next dressing change: Protective dressings over bony prominences Goal: Participates in plan/prevention/treatment measures Flowsheets (Taken 06/19/2023 1223) Participates in plan/prevention/treatment measures: Elevate heels Discuss with provider PT/OT consult Increase activity/out of bed for meals Goal: Prevent/manage excess moisture Flowsheets (Taken 06/19/2023 1223) Prevent/manage excess moisture: Moisturize dry skin Monitor for/manage infection if present Goal: Prevent/minimize sheer/friction injuries Flowsheets (Taken 06/19/2023 1223) Prevent/minimize sheer/friction injuries: Increase activity/out of bed for meals Goal: Promote/optimize nutrition Flowsheets (Taken 06/19/2023 1224) Promote/optimize nutrition: Assist with feeding Goal: Promote skin healing Flowsheets (Taken 06/19/2023 1224) Promote skin healing: Protective dressings over bony prominences Assess skin/pad under line(s)/device(s) The patient's goals for the shift include The clinical goals for the shift include completed * Care Plan - Dalila Cortes RN - 06/18/2023 7:50 PM EST The patient's goals for the shift include decreased abd pain The clinical goals for the shift include remain afebrile Patient has been incontinent of loose stools from laxatives. 9pm laxatives held. Npo at midnight for EGD tomorrow. * Care Plan - Lior Ledesma RN - 06/18/2023 9:25 AM EST The patient's goals for the shift include remain fall free The clinical goals for the shift include remain afebrile * Care Plan - Sushila Quispe RN - 06/18/2023 5:30 AM EST The patient's goals for the shift include Problem: Pain Goal: My pain/discomfort is manageable 06/18/2023433 by Sushila Quispe RN Outcome: Progressing 06/18/2023432 by Sushila Quispe RN Outcome: Progressing Problem: Safety Goal: Patient will be injury free during hospitalization 06/18/2023433 by Sushila Quispe RN Outcome: Progressing 06/18/2023432 by Sushila Quispe RN Outcome: Progressing Goal: I will remain free of falls 06/18/2023433 by Sushila Quispe RN Outcome: Progressing 06/18/2023432 by Sushila Quispe RN Outcome: Progressing Problem: Daily Care Goal: Daily care needs are met 06/18/2023433 by Sushila Quispe RN Outcome: Progressing 06/18/2023432 by Sushila Quispe RN Outcome: Progressing Problem: Psychosocial Needs Goal: Demonstrates ability to cope with hospitalization/illness 06/18/2023433 by Sushila Quispe RN Outcome: Progressing 06/18/2023432 by Sushila Quispe RN Outcome: Progressing Goal: Collaborate with me, my family, and caregiver to identify my specific goals 06/18/2023433 by Sushila Quispe RN Outcome: Progressing 06/18/2023432 by Sushila Quispe RN Outcome: Progressing Problem: Discharge Barriers Goal: My discharge needs are met 06/18/2023 043 by Sushila Quispe RN Outcome: Progressing 06/18/2023 043 by Sushila Quispe RN Outcome: Progressing Problem: Skin Goal: Decreased wound size/increased tissue granulation at next dressing change 06/18/2023 0434 by Sushila Quispe RN Outcome: Progressing 06/18/2023 0433 by Sushila Quispe RN Outcome: Progressing Goal: Participates in plan/prevention/treatment measures 06/18/2023 0434 by Sushila Quispe RN Outcome: Progressing 06/18/2023 0433 by Sushila Quispe RN Outcome: Progressing Goal: Prevent/manage excess moisture 06/18/2023 043 by Sushila Quispe RN Outcome: Progressing 06/18/2023 043 by Sushila Quispe RN Outcome: Progressing Goal: Prevent/minimize sheer/friction injuries 06/18/2023 043 by Sushila Quispe RN Outcome: Progressing 06/18/2023 043 by Sushila Quispe RN Outcome: Progressing Goal: Promote/optimize nutrition 06/18/2023 043 by Sushila Quispe RN Outcome: Progressing 06/18/2023 043 by Sushila Quispe RN Outcome: Progressing Goal: Promote skin healing 06/18/2023 043 by Sushila Quispe RN Outcome: Progressing 06/18/2023 043 by Sushila Quispe RN Outcome: Progressing Problem: Fall/Injury Goal: Not fall by end of shift 06/18/2023 0434 by Sushila Quispe RN Outcome: Progressing 06/18/2023 043 by Sushila Quispe RN Outcome: Progressing Goal: Be free from injury by end of the shift 06/18/2023 043 by Sushila Quispe RN Outcome: Progressing 06/18/2023 043 by Sushila Quispe RN Outcome: Progressing Goal: Verbalize understanding of personal risk factors for fall in the hospital 06/18/2023 043 by Sushila Quispe RN Outcome: Progressing 06/18/2023 043 by Sushila Quispe RN Outcome: Progressing Goal: Verbalize understanding of risk factor reduction measures to prevent injury from fall in the home 06/18/2023 0434 by Sushila Quispe RN Outcome: Progressing 06/18/2023 043 by Sushila Quispe RN Outcome: Progressing Goal: Use assistive devices by end of the shift 06/18/2023433 by Sushila Quispe RN Outcome: Progressing 06/18/2023432 by Sushila Quispe RN Outcome: Progressing Goal: Pace activities to prevent fatigue by end of the shift 06/18/2023 043 by Sushila Quispe RN Outcome: Progressing 06/18/2023432 by Sushila Quispe RN Outcome: Progressing Problem: Pain Goal: Takes deep breaths with improved pain control throughout the shift 06/18/2023 043 by Sushila Quispe RN Outcome: Progressing 06/18/2023432 by Sushila Quispe RN Outcome: Progressing Goal: Turns in bed with improved pain control throughout the shift 06/18/2023433 by Sushila Quispe RN Outcome: Progressing 06/18/2023432 by Sushila Quispe RN Outcome: Progressing Goal: Walks with improved pain control throughout the shift 06/18/2023433 by Sushila Quispe RN Outcome: Progressing 06/18/2023432 by Sushila Quispe RN Outcome: Progressing Goal: Performs ADL's with improved pain control throughout shift 06/18/2023433 by Sushila Quispe RN Outcome: Progressing 06/18/2023432 by Sushila Quispe RN Outcome: Progressing Goal: Participates in PT with improved pain control throughout the shift 06/18/2023433 by Sushila Quispe RN Outcome: Progressing 06/18/2023432 by Sushila Quispe RN Outcome: Progressing Goal: Free from opioid side effects throughout the shift 06/18/2023433 by Sushila Quispe RN Outcome: Progressing 06/18/2023432 by Sushila Quispe RN Outcome: Progressing Goal: Free from acute confusion related to pain meds throughout the shift 06/18/2023433 by Sushila Quispe RN Outcome: Progressing 06/18/2023432 by Sushila Quispe RN Outcome: Progressing Problem: Respiratory Goal: Clear secretions with interventions this shift 06/18/2023433 by Sushila Quispe RN Outcome: Progressing 06/18/2023432 by Sushila Quispe RN Outcome: Progressing Goal: Minimize anxiety/maximize coping throughout shift 06/18/2023 043 by Sushila Quispe RN Outcome: Progressing 06/18/2023 043 by Sushila Quispe RN Outcome: Progressing Goal: Minimal/no exertional discomfort or dyspnea this shift 06/18/2023 0434 by Sushila Quispe RN Outcome: Progressing 06/18/2023 043 by Sushila Quispe RN Outcome: Progressing Goal: No signs of respiratory distress (eg. Use of accessory muscles. Peds grunting) 06/18/2023 043 by Sushila Quispe RN Outcome: Progressing 06/18/2023 043 by Sushila Quispe RN Outcome: Progressing Goal: Patent airway maintained this shift 06/18/2023 043 by Sushila Quispe RN Outcome: Progressing 06/18/2023432 by Sushila Quispe RN Outcome: Progressing Goal: Tolerate mechanical ventilation evidenced by VS/agitation level this shift 06/18/2023 043 by Sushila Quispe RN Outcome: Progressing 06/18/2023 043 by Sushila Quispe RN Outcome: Progressing Goal: Tolerate pulmonary toileting this shift 06/18/2023 043 by Sushila Quispe RN Outcome: Progressing 06/18/2023432 by Sushila Quispe RN Outcome: Progressing Goal: Verbalize decreased shortness of breath this shift 06/18/2023433 by Sushila Quispe RN Outcome: Progressing 06/18/2023432 by Sushila Quispe RN Outcome: Progressing Goal: Wean oxygen to maintain O2 saturation per order/standard this shift 06/18/2023 043 by Sushila Quispe RN Outcome: Progressing 06/18/2023 043 by Sushila Quispe RN Outcome: Progressing Goal: Increase self care and/or family involvement in next 24 hours 06/18/2023 043 by Sushila Quispe RN Outcome: Progressing 06/18/2023432 by Sushila Quispe RN Outcome: Progressing Problem: Diabetes Goal: Achieve decreasing blood glucose levels by end of shift Outcome: Progressing Goal: Increase stability of blood glucose readings by end of shift Outcome: Progressing Goal: Maintain glucose levels >70mg/dl to <250mg/dl throughout shift Outcome: Progressing Goal: No changes in neurological exam by end of shift Outcome: Progressing Goal: Vital signs within normal range for age by end of shift Outcome: Progressing Goal: Increase self care and/or family involovement by end of shift Outcome: Progressing The clinical goals for the shift include labs/vital signs stable, nausea controlled, and patient safety maintained Over the shift, the patient did make progress toward the following goals. Patient labs and vital signs stable. Patient's nausea controlled with PRN antiemetics. Patient given education regarding diabetes. Patient safety maintained. * Care Plan - Chiquita Kunz RN - 06/17/2023 12:36 PM EST The patient's goals for the shift include The clinical goals for the shift include safety, patient education on diabetes Problem: Pain Goal: My pain/discomfort is manageable Outcome: Progressing Problem: Safety Goal: Patient will be injury free during hospitalization Outcome: Progressing Goal: I will remain free of falls Outcome: Progressing Problem: Daily Care Goal: Daily care needs are met Outcome: Progressing Problem: Psychosocial Needs Goal: Demonstrates ability to cope with hospitalization/illness Outcome: Progressing Goal: Collaborate with me, my family, and caregiver to identify my specific goals Outcome: Progressing Problem: Discharge Barriers Goal: My discharge needs are met Outcome: Progressing Problem: Skin Goal: Decreased wound size/increased tissue granulation at next dressing change Outcome: Progressing Goal: Participates in plan/prevention/treatment measures Outcome: Progressing Goal: Prevent/manage excess moisture Outcome: Progressing Goal: Prevent/minimize sheer/friction injuries Outcome: Progressing Goal: Promote/optimize nutrition Outcome: Progressing Goal: Promote skin healing Outcome: Progressing Problem: Fall/Injury Goal: Not fall by end of shift Outcome: Progressing Goal: Be free from injury by end of the shift Outcome: Progressing Goal: Verbalize understanding of personal risk factors for fall in the hospital Outcome: Progressing Goal: Verbalize understanding of risk factor reduction measures to prevent injury from fall in the home Outcome: Progressing Goal: Use assistive devices by end of the shift Outcome: Progressing Goal: Pace activities to prevent fatigue by end of the shift Outcome: Progressing Problem: Pain Goal: Takes deep breaths with improved pain control throughout the shift Outcome: Progressing Goal: Turns in bed with improved pain control throughout the shift Outcome: Progressing Goal: Walks with improved pain control throughout the shift Outcome: Progressing Goal: Performs ADL's with improved pain control throughout shift Outcome: Progressing Goal: Participates in PT with improved pain control throughout the shift Outcome: Progressing Goal: Free from opioid side effects throughout the shift Outcome: Progressing Goal: Free from acute confusion related to pain meds throughout the shift Outcome: Progressing Problem: Respiratory Goal: Clear secretions with interventions this shift Outcome: Progressing Goal: Minimize anxiety/maximize coping throughout shift Outcome: Progressing Goal: Minimal/no exertional discomfort or dyspnea this shift Outcome: Progressing Goal: No signs of respiratory distress (eg. Use of accessory muscles. Peds grunting) Outcome: Progressing Goal: Patent airway maintained this shift Outcome: Progressing Goal: Tolerate mechanical ventilation evidenced by VS/agitation level this shift Outcome: Progressing Goal: Tolerate pulmonary toileting this shift Outcome: Progressing Goal: Verbalize decreased shortness of breath this shift Outcome: Progressing Goal: Wean oxygen to maintain O2 saturation per order/standard this shift Outcome: Progressing Goal: Increase self care and/or family involvement in next 24 hours Outcome: [facility]ing [facility]: 1(167) 939-970903-01-2024 Hospital Discharge instructions* Discharge Instructions* Stephanie Holbrook PA-C - 06/20/2023 5:18 PM EST Follow-up with current GI physician MICKI for liver Bx results and further plan of care * Attachments The following attachments cannot be sent through Care Everywhere. * Insulin Glargine, ADULT ([place]) documented [facility] Work Phone: [phone]) 355-557703-01-2024 Consult note* Radha Kramer RN - 06/20/2023 3:37 PM EST Inpatient Diabetes Education Consult Reason for Visit: Anahi Dwyer is a 37 y.o. female who presents for Transaminitis, RUQ pain and newonset T2DM. Visit Type: Initial visit Visit Modality: In-person Discharge Equipment/Supply Needs: Patient has supplies at home: Patient History and Assessment: New diagnosis: Type 2 Patient Active Problem List Diagnosis Atypical chest pain Depression Exotropia Hair loss Near syncope Obesity affecting in second trimester Placenta previa antepartum in second trimester Placenta previa without hemorrhage, antepartum PVC's (premature ventricular contractions) Skin tag Vitamin D deficiency Diarrhea due to malabsorption Transaminitis RUQ abdominal pain New onset type 2 diabetes mellitus (CMS/HCC) Hyperglycemia Hepatic steatosis Calculus of bile duct with obstruction Dizziness and giddiness PTSD (post-traumatic stress disorder) JUANA (generalized anxiety disorder) Seborrheic dermatitis 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 ONCE A WEEK FLUoxetine (PROZAC) 20 mg, oral, Daily ketoconazole (NIZOral) 2 % shampoo Topical, Weekly, AT LEAST ONCE A WEEK.LEAVE ON FOR 6 MINUTESBEFORE WASHING OFF loratadine (CLARITIN) 10 mg, oral, Daily minoxidil (LONITEN) 1.25 mg, oral, Daily SUMAtriptan (Imitrex) 100 mg tablet One tab by mouth as needed for migraine. MAY repeat once in 2 hours if headaches persist. Max 2 pills per 24 hours; Max 2 days per week . topiramate (TOPAMAX) 50 mg, oral, 2 times daily ARIPiprazole, 5 mg, oral, Daily bisacodyl, 10 mg, rectal, Daily FLUoxetine, 20 mg, oral, Daily insulin glargine, 12 Units, subcutaneous, Daily insulin lispro, 0-10 Units, subcutaneous, q4h loratadine, 10 mg, oral, Daily minoxidil, 1.25 mg, oral, Daily pantoprazole, 40 mg, oral, Daily before breakfast [START ON 06/21/2023] polyethylene glycol, 17 g, oral, Daily sennosides-docusate sodium, 2 tablet, oral, BID topiramate, 50 mg, oral, BID Glucose Date/Time Value Ref Range Status 06/20/2023 08:09 AM 126 (H) 74 - 99 mg/dL Final 06/19/2023 11:37 AM 111 (H) 74 - 99 mg/dL Final 06/18/2023 07:36 AM 139 (H) 74 - 99 mg/dL Final 06/17/2023 06:19 AM 142 (H) 74 - 99 mg/dL Final 06/16/2023 05:20 PM 421 (H) 74 - 99 mg/dL Final 03/14/2023 10:52 AM 110 (H) 74 - 99 mg/dL Final 12/19/2021 08:40 AM 136 (H) 74 - 99 mg/dL Final 02/03/2021 02:24 PM 103 (H) 74 - 99 mg/dL Final 01/26/2021 10:33 PM 96 74 - 99 mg/dL Final 11/03/2019 12:02 PM 102 (H) 74 - 99 mg/dL Final No results found for: CPEPTIDE Hemoglobin A1C Date Value Ref Range Status 06/16/2023 7.3 (H) see below % Final 05/21/2023 6.1 (H) 4.0 - 5.6 % Final 12/19/2021 5.7 (A) % Final Comment: Diagnosis of Diabetes-Adults Non-Diabetic: < or = 5.6% Increased risk for developing diabetes: 5.7-6.4% Diagnostic of diabetes: > or = 6.5% . Monitoring of Diabetes Age (y) Therapeutic Goal (%) Adults: >18 <7.0 Pediatrics: 13-18 <7.5 7-12 <8.0 0- 6 7.5-8.5 [place] [employer]. Diabetes Care 33(S1), Apr 2009. Patient Learning/Readiness Assessment: Acceptance. Interventions/Topics Covered: See After Visit Summary for handouts/information sheets provided to patient. Education Documentation No documentation found. Additional materials provided: DM patient guide, 2 handouts on exercise, blood glucose log sheet, A1C handout with patient's level written along with target level, hypo/hyperglycemia signs/symptoms & treatment for hypoglycemia. Education Outcome/Recommendations: Recommendations for bedside nursing: Recommendations for Providers: Additional Comments: Per record patient has a plan where she will try diet and exercise first and if this fails then she will accept taking medications. Asked patient about this and she said I'm not sure if that's the best choice. Later she did reiterate she would like to try diet and exercise first. She would like to see what A1C is in 3 months with changes she makes. RD has educated patient. Discussed role and benefit of regular physical activity. Encouraged her to explore some activitiesshe enjoys, start small and build up. Admits to a lot of stress in her life lately. She would not elaborate on the source of stress. She does tend to eat when stressed out. Discussed how stress impacts blood sugar and importance of trying new strategies to deal with stress other than eating. Some examples provided. POC trending 100's. Patient said no one has told her she will need to check her blood sugar at home. She'd like to follow-up with a hematology nurse educator and lives in [facility]. Encouraged her at next follow-up with PCP to ask for referral. [facility] Work Phone: [phone]) 993-919703-01-2024 Consult note* Radha Kramer RN - 06/20/2023 3:37 PM EST Inpatient Diabetes Education Consult Reason for Visit: Anahi Dwyer is a 37 y.o. female who presents for Transaminitis, RUQ pain and newonset T2DM. Visit Type: Initial visit Visit Modality: In-person Discharge Equipment/Supply Needs: Patient has supplies at home: Patient History and Assessment: New diagnosis: Type 2 Patient Active Problem List Diagnosis Atypical chest pain Depression Exotropia Hair loss Near syncope Obesity affecting in second trimester Placenta previa antepartum in second trimester Placenta previa without hemorrhage, antepartum PVC's (premature ventricular contractions) Skin tag Vitamin D deficiency Diarrhea due to malabsorption Transaminitis RUQ abdominal pain New onset type 2 diabetes mellitus (CMS/HCC) Hyperglycemia Hepatic steatosis Calculus of bile duct with obstruction Dizziness and giddiness PTSD (post-traumatic stress disorder) UJANA (generalized anxiety disorder) Seborrheic dermatitis 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 ONCE A WEEK FLUoxetine (PROZAC) 20 mg, oral, Daily ketoconazole (NIZOral) 2 % shampoo Topical, Weekly, AT LEAST ONCE A WEEK.LEAVE ON FOR 6 MINUTESBEFORE WASHING OFF loratadine (CLARITIN) 10 mg, oral, Daily minoxidil (LONITEN) 1.25 mg, oral, Daily SUMAtriptan (Imitrex) 100 mg tablet One tab by mouth as needed for migraine. MAY repeat once in 2 hours if headaches persist. Max 2 pills per 24 hours; Max 2 days per week . topiramate (TOPAMAX) 50 mg, oral, 2 times daily ARIPiprazole, 5 mg, oral, Daily bisacodyl, 10 mg, rectal, Daily FLUoxetine, 20 mg, oral, Daily insulin glargine, 12 Units, subcutaneous, Daily insulin lispro, 0-10 Units, subcutaneous, q4h loratadine, 10 mg, oral, Daily minoxidil, 1.25 mg, oral, Daily pantoprazole, 40 mg, oral, Daily before breakfast [START ON 06/21/2023] polyethylene glycol, 17 g, oral, Daily sennosides-docusate sodium, 2 tablet, oral, BID topiramate, 50 mg, oral, BID Glucose Date/Time Value Ref Range Status 06/20/2023 08:09 AM 126 (H) 74 - 99 mg/dL Final 06/19/2023 11:37 AM 111 (H) 74 - 99 mg/dL Final 06/18/2023 07:36 AM 139 (H) 74 - 99 mg/dL Final 06/17/2023 06:19 AM 142 (H) 74 - 99 mg/dL Final 06/16/2023 05:20 PM 421 (H) 74 - 99 mg/dL Final 03/14/2023 10:52 AM 110 (H) 74 - 99 mg/dL Final 12/19/2021 08:40 AM 136 (H) 74 - 99 mg/dL Final 02/03/2021 02:24 PM 103 (H) 74 - 99 mg/dL Final 01/26/2021 10:33 PM 96 74 - 99 mg/dL Final 11/03/2019 12:02 PM 102 (H) 74 - 99 mg/dL Final No results found for: CPEPTIDE Hemoglobin A1C Date Value Ref Range Status 06/16/2023 7.3 (H) see below % Final 05/21/2023 6.1 (H) 4.0 - 5.6 % Final 12/19/2021 5.7 (A) % Final Comment: Diagnosis of Diabetes-Adults Non-Diabetic: < or = 5.6% Increased risk for developing diabetes: 5.7-6.4% Diagnostic of diabetes: > or = 6.5% . Monitoring of Diabetes Age (y) Therapeutic Goal (%) Adults: >18 <7.0 Pediatrics: 13-18 <7.5 7-12 <8.0 0- 6 7.5-8.5 [place] [employer]. Diabetes Care 33(S1), Apr 2009. Patient Learning/Readiness Assessment: Acceptance. Interventions/Topics Covered: See After Visit Summary for handouts/information sheets provided to patient. Education Documentation No documentation found. Additional materials provided: DM patient guide, 2 handouts on exercise, blood glucose log sheet, A1C handout with patient's level written along with target level, hypo/hyperglycemia signs/symptoms & treatment for hypoglycemia. Education Outcome/Recommendations: Recommendations for bedside nursing: Recommendations for Providers: Additional Comments: Per record patient has a plan where she will try diet and exercise first and if this fails then she will accept taking medications. Asked patient about this and she said I'm not sure if that's the best choice. Later she did reiterate she would like to try diet and exercise first. She would like to see what A1C is in 3 months with changes she makes. RD has educated patient. Discussed role and benefit of regular physical activity. Encouraged her to explore some activitiesshe enjoys, start small and build up. Admits to a lot of stress in her life lately. She would not elaborate on the source of stress. She does tend to eat when stressed out. Discussed how stress impacts blood sugar and importance of trying new strategies to deal with stress other than eating. Some examples provided. POC trending 100's. Patient said no one has told her she will need to check her blood sugar at home. She'd like to follow-up with a hematology nurse educator and lives in [facility]. Encouraged her at next follow-up with PCP to ask for referral. * Etta Wyatt RDN, LD - 06/20/2023 2:06 PM ESTAssociated Order(s): IP CONSULT TO NUTRITION SERVICES Nutrition Assessment Note Nutrition Assessment Reason for Assessment Reason for Assessment: Admission nursing screening (Pt requesting diet education for newly diagnosed diabetes.) Anahi Dwyer is a 37 y.o. female presenting with progressive right upper quadrant pain. GI on consult. Pt underwent EGD with Dr. 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 She was encouraged to wean narcotics. Endocrinology on consult as well and note type 2 DM - newly diagnosed. Today she underwent a biopsy of her liver. She is now tolerating clear liquids, but still having uncontrolled diarrhea. Past Medical History has a past medical history of Calculus of bile duct with obstruction (06/17/2023), Depression (5-16-21), Dizziness and giddiness (04/02/2023), JUANA (generalized anxiety disorder) (05/19/2023), Irritable bowel syndrome (4-20-19), Migraines, Near syncope (02/16/2023), Other specified health status, Placenta previa antepartum in second trimester (02/25/2020), PTSD (post-traumatic stress disorder) (05/19/2023), PVC's (premature ventricular contractions) (02/16/2023), Seborrheic dermatitis (06/17/2023), and Vitamin D deficiency (02/16/2023). Surgical History has a past surgical history that includes section, low transverse ( 30 -16 and 02-28-20) and Cholecystectomy. History: Food and Nutrient History Energy Intake: Poor < 50 % (Pt remains on clear liquids due to persistent nausea and diarrhea - no further vomiting since yesterday.) Food and Nutrient History: Pt lives at home with 7 year-old child and spouse who is away most days due to [employer] job. She says her favorite food is azeri fries, but she doesn't eat them all the time. Her daily routine generally involves eating cereal (honey Bunches of Oats) with almond milk for breakfast and then eating a breakfast sandwich for lunch. Dinner is generally shared with her child. They eat harris noodles and other convenient foods bc she is not a good cook. She said she recently was diagnosed with Norovirus last month and had uncontrollable diarrhea. At that time, she was advised to avoid milk. She switched from whole milk to almond milk and has since been drinking this. She was also started on Questran. Pt reports that she was adopted, so she is unsure of her family history with diabetes. She was borderline diabetic when she was . She questions if she will have to be on insulin and is interested in seeing an outpatient Dietitian. Vitamin/Herbal Supplement Use: Vitamin D2 Current Diet: Adult diet Carb Controlled, Regular; 60 gram carb/meal, 30 gram Carb evening snack Food allergies: NKFA. is allergic to bee venom protein (honey bee), lexapro [escitalopram oxalate],ultram [tramadol], and vicodin [hydrocodone-acetaminophen]. GI assessment: Pt reports nausea and diarrhea. Oral Problems: denied Mobility: independent Pain Assessment: 0-10 Pain Score: 0 - No pain Pain Type: Acute pain Pain Location: Abdomen Pain Orientation: Right; Upper Vitals: Blood pressure 122/72, pulse 74, temperature 36 C (96.8 F), temperature source Temporal, resp. rate 16, height 1.549 m (5' 0.98), weight 82.1 kg (181 lb), last menstrual period 06/02/2023, SpO2 97 %. Recent Lab Results: Lab Results Component Value Date GLUCOSE 126 (H) 06/20/2023 CALCIUM 9.3 06/20/2023 NA 137 06/20/2023 K 3.6 06/20/2023 CO2 24 06/20/2023 CL 106 06/20/2023 BUN 9 06/20/2023 CREATININE 0.81 06/20/2023 Lab Results Component Value Date HGBA1C 7.3 (H) 06/16/2023 HGBA1C 6.1 (H) 05/21/2023 Results from last 7 days Lab Units 06/20/23 1138 06/20/23 0741 06/20/23 0544 06/20/23 0221 06/19/23 2055 06/19/23 1616 06/19/23 1123 06/19/23 1023 POCT GLUCOSE mg/dL 108* 128* 129* 114* 132* 153* 117* 123* Medications reviewed: ARIPiprazole, 5 mg, oral, Daily bisacodyl, 10 mg, rectal, Daily FLUoxetine, 20 mg, oral, Daily insulin glargine, 12 Units, subcutaneous, Daily insulin lispro, 0-10 Units, subcutaneous, q4h loratadine, 10 mg, oral, Daily minoxidil, 1.25 mg, oral, Daily pantoprazole, 40 mg, oral, Daily before breakfast [START ON 06/21/2023] polyethylene glycol, 17 g, oral, Daily sennosides-docusate sodium, 2 tablet, oral, BID topiramate, 50 mg, oral, BID Height: Admission Weight: 87.1 kg (191 lb 15.3 oz) Weight history/ % weight change: Significant Weight Loss: Interpretation of Weight Loss: Anthropometrics: Height: 154.9 cm (5' 0.98) Weight: 82.1 kg (181 lb) BMI (Calculated): 34.22 Weight Change: -3.75 Weight Change Weight History / % Weight Change: (05/22/23) 82.3kg; (03/14/23) 82.6kg; (07/2022) 77.4kg Significant Weight Loss: No IBW/kg (Dietitian Calculated): 47.59 kg Percent of IBW: 182.95 % Amputation Calculations: BMI/Z-Score: Facility age limit for growth %swathi is 20 years. Energy Needs: Calculated Energy Needs Using Equations Height: 154.9 cm (5' 0.98) Weight Used for Equation Calculations: 82.1 kg (181 lb) Dave Petersen Equation (Overweight or Obese Patients): 1443 Equation Chosen to Use by RD: Hailee Li Activity Factor: 1.5 Stress Factor: 1 Total Energy Needs: 2165 Temp: 36 C (96.8 F) Estimated Energy Needs Total Energy Estimated Needs (kCal): (4078-6888 kcal) Method for Estimating Needs: MSJ (1.3-1.5) (1.0) Estimated Protein Needs Total Protein Estimated Needs (g): (66-82g) Method for Estimating Needs: 0.8-1.0g/kg Estimated Fluid Needs Method for Estimating Needs: 1mL/kcal Nutrition Focused Physical Findings: deferred; pt complains of pain and nausea Nutrition Diagnosis Malnutrition Diagnosis Patient has Malnutrition Diagnosis: No Patient has Nutrition Diagnosis: Yes Nutrition Diagnosis 1: Altered nutrition related to laboratory values Diagnosis Status (1): New Related to (1): glycemic control As Evidenced by (1): A1C 7.3 (06/16/23) Nutrition Diagnosis 2: Inadequate oral intake Diagnosis Status (2): New Related to (2): altered GI status As Evidenced by (2): persistent nausea + diarrhea and day 3 of clear liquids. Additional Assessment Information (2): Pt recommended by physician to remain on clear liquids untilGI symptoms resolve. Nutrition Diagnosis 3: Altered nutrition related to laboratory values Diagnosis Status (3): New Related to (3): lipid panel As Evidenced by (3): diagnosed with diabetic dyslipidemia: LDL 122. TG 214 Nutrition Interventions/Recommendations Nutrition Prescription Individualized Nutrition Prescription Provided for : Oral Diet Food and/or Nutrient Delivery Interventions Meals and Snacks: Carbohydrate-modified diet Goal: To advance as tolerated to goal of Consistent Carbohydrate diet (60g carb per meal and 30g atHS snack). Coordination of Nutrition Care by a Nutrition Professional Collaboration and Referral of Nutrition Care: Referral by nutrition professional to another nutrition professional with different expertise Goal: Referral to outpatient RD (Betty Palafox #[phone]) Education Documentation Nutrition Care Manual, taught by Etta Wyatt RDN, LD at 06/20/2023 2:03 PM. Learner: Patient Readiness: Acceptance Method: Explanation, Handout Response: Verbalizes Understanding Comment: Reviewed what foods are classified as carbohydrates and how to maintain a consistent amount within each meal. Offered suggestions for meal planning and encouraged label reading. Handout: [facility] Planning for Diabetes provided with outpatient RD contact Nutrition Monitoring and Evaluation Food and Nutrient Related History Amount of Food: Estimated amout of food, Types of food Criteria: Pt to tolerate solid foods without nausea and consume >75% of meals. Anthropometrics: Body Composition/Growth/Weight History Biochemical Data, Medical Tests and Procedures Glucose/Endocrine Profile: Glucose, casual, Hemoglobin A1c (HgbA1c) Criteria: Within normal range: 70-180mg/dL; A1C = less then 6.0 Nutrition Focused Physical Findings Follow Up Time Spent (min): 45 minutes Last Date of Nutrition Visit: 06/20/23 Nutrition Follow-Up Needed?: 3-8 days Follow up Comment: KB * Porfirio Norton, TOOL DISPATCHER-RED CROSS WORKER - 06/17/2023 9:04 AM ESTAssociated Order(s): IP CONSULT TO GASTROENTEROLOGY Reason for consult transaminitis HPI Anahi Dwyer is a 37 y.o. female presenting with RUQ pain, nausea. PMH significant for IBS, obstructive cholelithiasis s/p cholecystectomy, diarrhea secondary to malabsorption, recent norovirus. Patient presented from home noting RUQ discomfort that worsened with sitting upright, walking, movement.Pain has been going on for months though has gotten worse over the past few days. She was unable tosleep 3 nights ago and pain became more continuous. She had nausea without vomiting. Nausea has been going on for about 1 month. It is similar to morning sickness. She had not been taking anything for pain or nausea at home. She has been tolerating food. Pain and nausea do not seem to be related tofluid intake. She was able to eat scrambled eggs for breakfast yesterday. She has been having diarrhea, 1-2 episodes daily that has been treated by her GI in [place] with improvement. No chest pain or shortness of breath. She follows with [facility]Dr. Titi Quezada. She has had frequent communications with their office. She was most recently seen for follow-up with diarrhea, abdominal pain 06/12/2023 with transaminitis noted with full workup ordered. Workup NTD. She also had previous transaminitis back in 2020. Plan for possible outpatient FibroScan. Current liver enzymes noting alk phos 195, ALT 214, AST 267. Bilirubin WNL. Alk phos and ALT downtrending from yesterday with elevation in AST today from 159 yesterday. Ferritin 943. Remaining iron studies WNL. Patient is afebrile, HDS on RA. PMH She has a past medical history of Calculus of bile duct with obstruction (06/17/2023), Depression (5-16-21), Dizziness and giddiness (04/02/2023), JUANA (generalized anxiety disorder) (05/19/2023), Irritable bowel syndrome (-20-19), Migraines, Near syncope (02/16/2023), Other specified health status, Placenta previa antepartum in second trimester (02/25/2020), PTSD (post-traumatic stress disorder)(05/19/2023), PVC's (premature ventricular contractions) (02/16/2023), Seborrheic dermatitis (06/17/2023), and Vitamin D deficiency (02/16/2023). PSH She has a past surgical history that includes section, low transverse ( and 02-28-20) and Cholecystectomy. Family Family History Adopted: Yes Family history unknown: Yes Social She reports that she has never smoked. She has never used smokeless tobacco. She reports that she does not drink alcohol and does not use drugs. Review of Systems ROS negative unless stated otherwise in HPI Objective BP 114/61 (BP Location: Left arm, Patient Position: Lying) Pulse 65 Temp 36 C (96.8 F) (Temporal) Resp 17 Ht 1.549 m (5' 0.98) Wt 87.1 kg (191 lb 15.3 oz) LMP 06/02/2023 (Approximate) SpO2 98% BMI 36.29 kg/m Physical Exam Constitutional: Alert, pleasant and interactive, in NAD Eyes: PERRL, sclera clear, no conjunctival injection Skin: Warm and dry, no rash or ecchymosis ENMT: Mucous membranes moist, no lesions noted Resp: CTAB, even and unlabored CV: RRR, normal S1, S2, no m,r,g GI: +BS, soft, round, RUQ TTP, no rebound tenderness or guarding, no palpable masses or organomegaly MSK: 5/5 strength, ROM intact, no joint swelling Extremities: Extremities warm, no edema, contusions, wounds or cyanosis Neuro: Alert and oriented x3 Psych: Appropriate mood and behavior Medications Scheduled medications insulin glargine, 12 Units, subcutaneous, Daily insulin lispro, 0-10 Units, subcutaneous, q4h pantoprazole, 40 mg, intravenous, Daily Continuous medications sodium chloride 0.9%, 100 mL/hr, Last Rate: 100 mL/hr (06/17/23 0224) PRN medications PRN medications: dextrose, glucagon, melatonin, ondansetron, polyethylene glycol Labs Lab Results Component Value Date WBC 9.2 06/17/2023 HGB 12.2 06/17/2023 HCT 37.8 06/17/2023 MCV 89 06/17/2023 PLT 203 06/17/2023 Lab Results Component Value Date GLUCOSE 142 (H) 06/17/2023 CALCIUM 8.7 06/17/2023 NA 137 06/17/2023 K 3.6 06/17/2023 CO2 18 (L) 06/17/2023 CL 108 (H) 06/17/2023 BUN 14 06/17/2023 CREATININE 0.63 06/17/2023 Lab Results Component Value Date ALT 214 (H) 06/17/2023 AST 267 (H) 06/17/2023 ALKPHOS 195 (H) 06/17/2023 BILITOT 0.5 06/17/2023 Lab Results Component Value Date IRON 108 12/19/2021 TIBC 382 12/19/2021 FERRITIN 943 (H) 06/12/2023 Lab Results Component Value Date INR 1.1 02/03/2021 PROTIME 12.6 02/03/[address] A/P with IV contrast 06/16/2023 noting: Impression: 1. Hepatic steatosis. 2. Previous cholecystectomy. 3. Stool-filled colon. Signed by Terry Weems M.D. Assessment: Anahi Dwyer is a 37 y.o. female presenting with RUQ pain, nausea. PMH significant for obstructive cholelithiasis s/p cholecystectomy, recent norovirus, diarrhea. Patient follows with GI and [place]-Dr. Quezada who recently saw her for diarrhea improved with cholestyramine. Transaminitis with negative workup thus far. Plan for possible FibroScan. Liver enzymes also elevated in 2020. CT not noting any biliary abnormalities. Does note stool-filled colon. Hepatic steatosis. # transaminitis- could be multifactorial: Recent norovirus v hepatic steatosis- likely unrelated topain # abd pain- possibly r/t constipation, colonic spasms # stool filled colon # hepatic steatosis # recent norovirus Plan: - continue supportive care - clear liquids ok from GI standpoint - continue IVF's until able tolerate sufficient clears - miralax tid - continue analgesics and antiemetics as needed - continue to follow up remaining liver work up - can trial bentyl d/t concern for colonic spasms - pt will continue to follow up with her outpatient GI in [place] Plan has been discussed with Dr. Campbell. GI will continue to follow. Porfirio Norton APRN/CORINA * Reynold Ruiz DO - 06/17/2023 6:51 AM ESTAssociated Order(s): IP CONSULT TO ENDOCRINOLOGY Endocrinology Initial Inpatient Consult Note PATIENT NAME: Anahi Dwyer DATE: 06/17/2023 CONSULTING PHYSICIAN: Dr. Hernandez REASON FOR CONSULT: Uncontrolled T2DM History of Presenting Illness 37y F w. PMHx of: # Irritable Bowel Syndrome # Prediabetes # Class III Obesity # MDD/JUANA Patient presented to [place] ER on 06/16 complaining of worsening abdominal pain. She states is most in the right upper quadrant. She states that this has been going on for many months, but for the last 2 days it has worsened. She reports that it can be 10 out of 10 in nature. She states it is sharp when it does occur. The patient reports that she is having the pain on our interview. She reports that she is been following with gastroenterology. He has done many testing but without much of an answer. In the ER, CMP was remarkable for hyponatremia 131, her glucose was found to be 421 mg/dL. CO2 was 19 with an anion gap of 15. Serum lipase was 57. CBC was without any acute process. Her hemoglobin A1c was found be 7.3%. Her urinalysis did show glycosuria but did not show any nitrite, leukocyte Estrace or pyuria. The patient underwent a CT of the abdomen and pelvis which showed steatosis as well as a previous cholecystectomy. Otherwise there was no acute process. She was constipated. In regards to diabetes, the patient states that she is adopted. She does not know her family history. She is told that she had prediabetes. The patient states that she has a lot of sugary beverages by means of regular soda. Does not drink diet pop. Has juice as well. Patient does not watch her carbohydrates. She states that she does not exercise. She does not check her sugars either. Review of Systems (Bold if Positive) General: Fevers, Chills, Weight Loss, or Night Sweats HEENT: Headaches or Blurry Vision Cardiovascular: CP, Palpitations, Diaphoresis, or Peripheral Edema Respiratory: Cough, Shortness of Breath, or Hemoptysis Gastrointestinal: N/V, Abdominal Pain, Constipation, Diarrhea, Melena, Hematochezia Genitourinary: Polyruia, Dysuria, Urgency Endo: Polydipsia, Heat/Cold Intolerance, Hair/Skin/Nail Changes Rheum: Joint Pain MSK: LBP, Muscle Pain Psych: Anxiety, Depression Physical Examination BP 115/62 (BP Location: Left arm) Pulse 67 Temp 36.2 C (97.2 F) Resp 16 Ht 1.549 m (5' 0.98) Wt 87.1 kg (191 lb 15.3 oz) LMP 06/02/2023 (Approximate) SpO2 97% BMI 36.29 kg/m General: No acute distress. A&Ox3. HEENT: PERRLA. EOMi. Exophthalmos Neck: No LAD. No acanthosis nigricans. Thyroid: 20 g. Bruit CV: Normal rate and rhythm. No murmurs or rubs auscultated. Resp: CTA b/l. No wheezing or crackles. Abdomen: Soft nondistended obese abdomen. Right upper quadrant pain. Negative Hoyt sign. Noted laparotomy scars. Extremities: Trace pedal edema b/l. Neuro: CN II-XII Grossly Intact. Tremor. Brisk Reflexes. Psych: Appropriate affect Skin: No apparent rashes Past Medical / Surgical / Family / Social History Past Medical History: Diagnosis Date Calculus of bile duct with obstruction 06/17/2023 Depression 5-16-21 Dizziness and giddiness 04/02/2023 JUANA (generalized anxiety disorder) 05/19/2023 Irritable bowel syndrome 4-20-19 Migraines Near syncope 02/16/2023 Other specified health status No pertinent past medical history Placenta previa antepartum in second trimester 02/25/2020 PTSD (post-traumatic stress disorder) 05/19/2023 PVC's (premature ventricular contractions) 02/16/2023 Seborrheic dermatitis 06/17/2023 Vitamin D deficiency 02/16/2023 Past Surgical History: Procedure Laterality Date SECTION, LOW TRANSVERSE -16 and 02-28-20 x2 CHOLECYSTECTOMY Family History Adopted: Yes Family history unknown: Yes Social History Socioeconomic History Marital status: Spouse name: Not on file Number of children: Not on file Years of education: Not on file Highest education level: Not on file Occupational History Not on file Tobacco Use Smoking status: Never Smokeless tobacco: Never Vaping Use Vaping Use: Never used Substance and Sexual Activity Alcohol use: Never Drug use: Never Sexual activity: Yes Partners: Male Other Topics Concern Not on file Social History Narrative Not on file Social Determinants of Health Financial Resource Strain: Low Risk (06/17/2023) Overall Financial Resource Strain (CARDIA) Difficulty of Paying Living Expenses: Not very hard Food Insecurity: Not on file Transportation Needs: No Transportation Needs (06/17/2023) PRAPARE - Transportation Lack of Transportation (Medical): No Lack of Transportation (Non-Medical): No Physical Activity: Not on file Stress: Not on file Social Connections: Not on file Intimate Partner Violence: Not on file Housing Stability: Low Risk (06/17/2023) Housing Stability Vital Sign Unable to Pay for Housing in the Last Year: No Number of Places Lived in the Last Year: 1 Unstable Housing in the Last Year: No Medications & Allergies 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 Hemoglobin A1c (06/14): 7.3% Nutrition: NPO. New diagnosis. Her A1c is not bad, but she was able to mount a blood sugar of 400 on her CMP. The patient is symptomatic from her hyperglycemia. I will start her on basal insulin as well as sliding scale every 4 hours. I did explain to her that we can use oral therapies to help with this. I explained to her other therapies which have been shown to help with weight loss. Unfortunately her history of IBS may be prohibitive for her to use a GLP-1 receptor analog and/or metformin. -Start glargine 12 units this morning -Continue lispro sliding scale #2 every 4 hours -We will broach perhaps starting metformin once her abdominal pain improves. # MASLD: As seen on CT on admission. Explained that she needs to lose 5% of her body weight. She can benefit from a FibroScan as an outpatient. # HTN: Obtain urine albumin creatinine ratio given this is a new diagnosis of T2DM. #Dyslipidemia: Obtain lipids. # Class III Obesity: As above. Consider GLP-1 receptor analog and/or metformin. Reynold Ruiz DO Endocrinology, Diabetes, and Metabolism Available via [employer] Please excuse any typographical or unwanted errors within this documentation as voice recognition software was used to dictate this note. documented in this [facility] Work Phone: [phone] 467-214703-01-2024 Consult note* Etta Wyatt RDN, LD - 06/20/2023 2:06 PM ESTAssociated Order(s): IP CONSULT TO NUTRITION SERVICES Nutrition Assessment Note Nutrition Assessment Reason for Assessment Reason for Assessment: Admission nursing screening (Pt requesting diet education for newly diagnosed diabetes.) Anahi Dwyer is a 37 y.o. female presenting with progressive right upper quadrant pain. GI on consult. Pt underwent EGD with Dr. 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 She was encouraged to wean narcotics. Endocrinology on consult as well and note type 2 DM - newly diagnosed. Today she underwent a biopsy of her liver. She is now tolerating clear liquids, but still having uncontrolled diarrhea. Past Medical History has a past medical history of Calculus of bile duct with obstruction (06/17/2023), Depression (5-16-21), Dizziness and giddiness (04/02/2023), JUANA (generalized anxiety disorder) (05/19/2023), Irritable bowel syndrome (4-20-19), Migraines, Near syncope (02/16/2023), Other specified health status, Placenta previa antepartum in second trimester (02/25/2020), PTSD (post-traumatic stress disorder) (05/19/2023), PVC's (premature ventricular contractions) (02/16/2023), Seborrheic dermatitis (06/17/2023), and Vitamin D deficiency (02/16/2023). Surgical History has a past surgical history that includes section, low transverse ( and 02-28-20) and Cholecystectomy. History: Food and Nutrient History Energy Intake: Poor < 50 % (Pt remains on clear liquids due to persistent nausea and diarrhea - no further vomiting since yesterday.) Food and Nutrient History: Pt lives at home with 7 year-old child and spouse who is away most days due to [employer] job. She says her favorite food is azeri fries, but she doesn't eat them all the time. Her daily routine generally involves eating cereal (honey Bunches of Oats) with almond milk for breakfast and then eating a breakfast sandwich for lunch. Dinner is generally shared with her child. They eat harris noodles and other convenient foods bc she is not a good cook. She said she recently was diagnosed with Norovirus last month and had uncontrollable diarrhea. At that time, she was advised to avoid milk. She switched from whole milk to almond milk and has since been drinking this. She was also started on Questran. Pt reports that she was adopted, so she is unsure of her family history with diabetes. She was borderline diabetic when she was . She questions if she will have to be on insulin and is interested in seeing an outpatient Dietitian. Vitamin/Herbal Supplement Use: Vitamin D2 Current Diet: Adult diet Carb Controlled, Regular; 60 gram carb/meal, 30 gram Carb evening snack Food allergies: NKFA. is allergic to bee venom protein (honey bee), lexapro [escitalopram oxalate],ultram [tramadol], and vicodin [hydrocodone-acetaminophen]. GI assessment: Pt reports nausea and diarrhea. Oral Problems: denied Mobility: independent Pain Assessment: 0-10 Pain Score: 0 - No pain Pain Type: Acute pain Pain Location: Abdomen Pain Orientation: Right; Upper Vitals: Blood pressure 122/72, pulse 74, temperature 36 C (96.8 F), temperature source Temporal, resp. rate 16, height 1.549 m (5' 0.98), weight 82.1 kg (181 lb), last menstrual period 06/02/2023, SpO2 97 %. Recent Lab Results: Lab Results Component Value Date GLUCOSE 126 (H) 06/20/2023 CALCIUM 9.3 06/20/2023 NA 137 06/20/2023 K 3.6 06/20/2023 CO2 24 06/20/2023 CL 106 06/20/2023 BUN 9 06/20/2023 CREATININE 0.81 06/20/2023 Lab Results Component Value Date HGBA1C 7.3 (H) 06/16/2023 HGBA1C 6.1 (H) 05/21/2023 Results from last 7 days Lab Units 06/20/23 1138 06/20/23 0741 06/20/23 0544 06/20/23 0221 06/19/23 2055 06/19/23 1616 06/19/23 1123 06/19/23 1023 POCT GLUCOSE mg/dL 108* 128* 129* 114* 132* 153* 117* 123* Medications reviewed: ARIPiprazole, 5 mg, oral, Daily bisacodyl, 10 mg, rectal, Daily FLUoxetine, 20 mg, oral, Daily insulin glargine, 12 Units, subcutaneous, Daily insulin lispro, 0-10 Units, subcutaneous, q4h loratadine, 10 mg, oral, Daily minoxidil, 1.25 mg, oral, Daily pantoprazole, 40 mg, oral, Daily before breakfast [START ON 06/21/2023] polyethylene glycol, 17 g, oral, Daily sennosides-docusate sodium, 2 tablet, oral, BID topiramate, 50 mg, oral, BID Height: Admission Weight: 87.1 kg (191 lb 15.3 oz) Weight history/ % weight change: Significant Weight Loss: Interpretation of Weight Loss: Anthropometrics: Height: 154.9 cm (5' 0.98) Weight: 82.1 kg (181 lb) BMI (Calculated): 34.22 Weight Change: -3.75 Weight Change Weight History / % Weight Change: (05/22/23) 82.3kg; (03/14/23) 82.6kg; (07/2022) 77.4kg Significant Weight Loss: No IBW/kg (Dietitian Calculated): 47.59 kg Percent of IBW: 182.95 % Amputation Calculations: BMI/Z-Score: Facility age limit for growth %swathi is 20 years. Energy Needs: Calculated Energy Needs Using Equations Height: 154.9 cm (5' 0.98) Weight Used for Equation Calculations: 82.1 kg (181 lb) [facility] Equation (Overweight or Obese Patients): 1443 Equation Chosen to Use by RD: [facility] Activity Factor: 1.5 Stress Factor: 1 Total Energy Needs: 2165 Temp: 36 C (96.8 F) Estimated Energy Needs Total Energy Estimated Needs (kCal): (7392-7889 kcal) Method for Estimating Needs: MSJ (1.3-1.5) (1.0) Estimated Protein Needs Total Protein Estimated Needs (g): (66-82g) Method for Estimating Needs: 0.8-1.0g/kg Estimated Fluid Needs Method for Estimating Needs: 1mL/kcal Nutrition Focused Physical Findings: deferred; pt complains of pain and nausea Nutrition Diagnosis Malnutrition Diagnosis Patient has Malnutrition Diagnosis: No Patient has Nutrition Diagnosis: Yes Nutrition Diagnosis 1: Altered nutrition related to laboratory values Diagnosis Status (1): New Related to (1): glycemic control As Evidenced by (1): A1C 7.3 (06/16/23) Nutrition Diagnosis 2: Inadequate oral intake Diagnosis Status (2): New Related to (2): altered GI status As Evidenced by (2): persistent nausea + diarrhea and day 3 of clear liquids. Additional Assessment Information (2): Pt recommended by physician to remain on clear liquids untilGI symptoms resolve. Nutrition Diagnosis 3: Altered nutrition related to laboratory values Diagnosis Status (3): New Related to (3): lipid panel As Evidenced by (3): diagnosed with diabetic dyslipidemia: LDL 122. TG 214 Nutrition Interventions/Recommendations Nutrition Prescription Individualized Nutrition Prescription Provided for : Oral Diet Food and/or Nutrient Delivery Interventions Meals and Snacks: Carbohydrate-modified diet Goal: To advance as tolerated to goal of Consistent Carbohydrate diet (60g carb per meal and 30g atHS snack). Coordination of Nutrition Care by a Nutrition Professional Collaboration and Referral of Nutrition Care: Referral by nutrition professional to another nutrition professional with different expertise Goal: Referral to outpatient RD (Betty Palafox #[phone]) Education Documentation Nutrition Care Manual, taught by Etta Wyatt RDN, JEFF at 06/20/2023 2:03 PM. Learner: Patient Readiness: Acceptance Method: Explanation, Handout Response: Verbalizes Understanding Comment: Reviewed what foods are classified as carbohydrates and how to maintain a consistent amount within each meal. Offered suggestions for meal planning and encouraged label reading. Handout: Meal Planning for Diabetes provided with outpatient RD contact Nutrition Monitoring and Evaluation Food and Nutrient Related History Amount of Food: Estimated amout of food, Types of food Criteria: Pt to tolerate solid foods without nausea and consume >75% of meals. Anthropometrics: Body Composition/Growth/Weight History Biochemical Data, Medical Tests and Procedures Glucose/Endocrine Profile: Glucose, casual, Hemoglobin A1c (HgbA1c) Criteria: Within normal range: 70-180mg/dL; A1C = less then 6.0 Nutrition Focused Physical Findings Follow Up Time Spent (min): 45 minutes Last Date of Nutrition Visit: 06/20/23 Nutrition Follow-Up Needed?: 3-8 days Follow up Comment: KB [facility]03-01-2024 History of Present illness Narrative * Porfirio Norton, TOOL DISPATCHER-RED CROSS WORKER - 06/20/2023 2:03 PM EST Subjective Patient initially in IR for liver biopsy this a.m. but returned and is noting more intermittent RUQdiscomfort and decreased nausea. Tolerating more clear liquids. Plan to advance diet as tolerated. Patient will follow-up with her [place] GI-Dr. Quezada for completion of liver workup which he had initiated prior to admission. Objective Blood pressure 122/72, pulse 74, temperature 36 C (96.8 F), temperature source Temporal, resp. rate16, height 1.549 m (5' 0.98), weight 82.1 kg (181 lb), last menstrual period 06/02/2023, SpO2 97 %. Physical Exam Constitutional: Alert, pleasant and interactive, in NAD Eyes: PERRL, sclera clear, no conjunctival injection Skin: Warm and dry, no rash or ecchymosis ENMT: Mucous membranes moist, no lesions noted Resp: CTAB, even and unlabored CV: RRR, normal S1, S2, no m,r,g GI: +BS, soft, round, RUQ TTP, no rebound tenderness or guarding, no palpable masses or organomegaly MSK: 5/5 strength, ROM intact, no joint swelling Extremities: Extremities warm, no edema, contusions, wounds or cyanosis Neuro: Alert and oriented x3 Psych: Appropriate mood and behavior Medications Scheduled medications ARIPiprazole, 5 mg, oral, Daily bisacodyl, 10 mg, rectal, Daily FLUoxetine, 20 mg, oral, Daily insulin glargine, 12 Units, subcutaneous, Daily insulin lispro, 0-10 Units, subcutaneous, q4h loratadine, 10 mg, oral, Daily minoxidil, 1.25 mg, oral, Daily pantoprazole, 40 mg, oral, Daily before breakfast polyethylene glycol, 17 g, oral, TID sennosides-docusate sodium, 2 tablet, oral, BID topiramate, 50 mg, oral, BID Continuous medications PRN medications PRN medications: dextrose, dicyclomine, glucagon, lubricating eye drops, melatonin, ondansetron, oxyCODONE, prochlorperazine Labs Lab Results Component Value Date WBC 8.4 06/20/2023 HGB 13.0 06/20/2023 HCT 41.6 06/20/2023 MCV 91 06/20/2023 PLT 217 06/20/2023 Lab Results Component Value Date GLUCOSE 126 (H) 06/20/2023 CALCIUM 9.3 06/20/2023 NA 137 06/20/2023 K 3.6 06/20/2023 CO2 24 06/20/2023 CL 106 06/20/2023 BUN 9 06/20/2023 CREATININE 0.81 06/20/2023 Lab Results Component Value Date ALT 222 (H) 06/20/2023 AST 234 (H) 06/20/2023 ALKPHOS 215 (H) 06/20/2023 BILITOT 0.6 06/20/2023 Lab Results Component Value Date IRON 108 12/19/2021 TIBC 382 12/19/2021 FERRITIN 943 (H) 06/12/2023 Lab Results Component Value Date INR 1.2 (H) 06/19/2023 INR 1.1 02/03/2021 PROTIME 13.4 (H) 06/19/2023 PROTIME 12.6 02/03/2021 Endoscopic reports: EGD 06/19/[address] Krause noting: Findings The cricopharynx, upper third of the esophagus, middle third of the esophagus, lower third of the esophagus, GE junction and Z-line appeared normal. Moderate, patchy edematous and erythematous mucosa in the body of the stomach and antrum, consistent with gastritis; performed cold forceps biopsy; Mild, diffuse and mosaic portal hypertensive gastropathy in the body of the stomach The duodenal bulb and 2nd part of the duodenum appeared normal. Recommendation Await pathology results Radiology US guided liver biopsy 06/20/2023 noting: Impression: 1. Significant increased echotexture of the hepatic parenchyma consistent with hepatic steatosis. 2. Random liver biopsy as above. Performed and dictated at [facility]. Signed by: Augie Archibald 06/20/2023 12:32 PM Dictation workstation: [id number] CT A/P with IV contrast noting: IMPRESSION: 1. Hepatic steatosis. 2. Previous cholecystectomy. 3. Stool-filled colon. Signed by Terry Weems M.D. Assessment: Anahi Dwyer is a 37 y.o. female presenting with RUQ pain, nausea. PMH significant for obstructive cholelithiasis s/p cholecystectomy, recent norovirus, diarrhea. Patient follows with GI and [place]-Dr. Quezada who recently saw her for diarrhea improved with cholestyramine. Transaminitis with negative workup thus far. Plan for possible FibroScan. Liver enzymes also elevated in 2020. CT not noting any biliary abnormalities. Does note stool-filled colon. Hepatic steatosis. Patient sitting up in bed with more intermittent rather than constant RUQ discomfort. Endorses having emesis after clear liquid intake. She is having bowel movements with MiraLAX. Liver enzymes remain stably elevated with bilirubin WNL. # transaminitis- could be multifactorial: Recent norovirus v hepatic steatosis- likely unrelated topain # abd pain- possibly r/t constipation, colonic spasms # stool filled colon # hepatic steatosis # recent norovirus Plan: - continue supportive care - diet as tolerated - continue miralax daily and as needed at discharge - continue analgesics and antiemetics as needed - continue to trend liver enzymes daily - continue bentyl d/t concern for colonic spasms - pt will continue to follow up with her outpatient GI in [place]- referral on discharge profile - pt should have repeat liver enzymes within 1 week Plan has been discussed with Dr. Krause. GI will sign off. Porfirio Norton APRN/CORINA * Wallace Rowley RN - 06/20/2023 10:26 AM EST 06/20/23 1025 Discharge Planning Living Arrangements Spouse/significant other Support Systems Family members [facility] Patient to discharge home with no needs. * Chelly Ruiz MD - 06/19/2023 6:39 PM EST Anahi Dwyer 1985 [id number] Date of Service 06/19/2023 Attending Maicol Pollard MD Subjective The patient is being seen for follow up of: Pt has had EGD today which showed signs for portal HTN Pt is still vomiting Has had borderline DM in her first Second baby was premature Positive facial hair growth One skin tag in right arm pit removed Review of Systems: General: No fever or chills Resp.: No SOB Cardiac: No chest pain GI: positive N or V Allergies: Allergies Allergen Reactions Bee Venom Protein (Honey Bee) Anaphylaxis Lexapro [Escitalopram Oxalate] Palpitations Tachycardia Ultram [Tramadol] Palpitations Tachycardia Vicodin [Hydrocodone-Acetaminophen] Palpitations Tachycardia Medications: Current Facility-Administered Medications: albuterol 2.5 mg /3 mL (0.083 %) nebulizer solution 2.5 mg, 2.5 mg, nebulization, Once PRN, Carola Valentine MD ARIPiprazole (Abilify) tablet 5 mg, 5 mg, oral, Daily, BENJAMIN Tadeo, 5 mg at 06/19/23 1202 bisacodyl (Dulcolax) suppository 10 mg, 10 mg, rectal, Daily, JOSE FloydRED CROSS WORKER, 10 mg at 06/18/23 1124 dextrose 50 % injection 25 g, 25 g, intravenous, q15 min PRN, BENJAMIN Méndez dicyclomine (Bentyl) capsule 10 mg, 10 mg, oral, TID PRN, Porfirio Maicol Jevon, JOSE ARRIAGA, 10 mg at 06/19/23 1202 fentaNYL PF (Sublimaze) injection 50 mcg, 50 mcg, intravenous, q5 min PRN, Carola Gomez MD FLUoxetine (PROzac) capsule 20 mg, 20 mg, oral, Daily, BENJAMIN Tadeo, 20 mg at 06/19/23 1202 glucagon (Glucagen) injection 1 mg, 1 mg, intramuscular, q15 min PRN, BENJAMIN Méndez hydrALAZINE (Apresoline) injection 5 mg, 5 mg, intravenous, q30 min PRN, Carola Gomez MD HYDROmorphone (Dilaudid) injection 0.5 mg, 0.5 mg, intravenous, q5 min PRN, Carola Gomez MD, 0.5 mg at 06/19/23 1050 insulin glargine (Lantus) injection 12 Units, 12 Units, subcutaneous, Daily, Reynold Ruiz, DO, 12Units at 06/19/23 1205 insulin lispro (HumaLOG) injection 0-10 Units, 0-10 Units, subcutaneous, q4h, BENJAMIN Méndez, 2 Units at 06/18/23 2224 labetaloL (Normodyne,Trandate) injection 5 mg, 5 mg, intravenous, Once PRN, Carola Gomez MD lactated Ringer's infusion, 100 mL/hr, intravenous, Continuous, Carola Gomez MD lidocaine PF (Xylocaine) 10 mg/mL (1 %) injection 1 mg, 0.1 mL, subcutaneous, Once, Carola Gomez MD loratadine (Claritin) tablet 10 mg, 10 mg, oral, Daily, BENJAMIN Tadeo, 10 mg at 06/19/23 1202 lubricating eye drops ophthalmic solution 1 drop, 1 drop, Both Eyes, 4x daily PRN, BENJAMIN Tadeo melatonin tablet 3 mg, 3 mg, oral, Daily PRN, BENJAMIN Méndez minoxidil (Loniten) tablet 1.25 mg, 1.25 mg, oral, Daily, BENJAMIN Tadeo, 1.25 mg at 06/19/23 1202 morphine injection 2 mg, 2 mg, intravenous, q3h PRN, BENJAMIN Méndez, 2 mg at 06/19/23 1558 ondansetron (Zofran) injection 4 mg, 4 mg, intravenous, q6h PRN, BENJAMIN Méndez, 4 mg at 06/19/23 1814 oxyCODONE (Roxicodone) immediate release tablet 5 mg, 5 mg, oral, q4h PRN, Carola Gomez MD pantoprazole (ProtoNix) EC tablet 40 mg, 40 mg, oral, Daily before breakfast, BENJAMIN Tadeo, 40 mg at 06/18/23 0626 polyethylene glycol (Glycolax, Miralax) packet 17 g, 17 g, oral, TID, Porfirio Norton APRN-CORINA, 17 gat 06/18/23 0856 prochlorperazine (Compazine) injection 10 mg, 10 mg, intravenous, q6h PRN, BENJAMIN Méndez, 10 mg at 06/19/23 1319 promethazine (Phenergan) 6.25 mg in sodium chloride 0.9% 50 mL IV, 6.25 mg, intravenous, Once PRN, Carola Gomez MD sennosides-docusate sodium (Bobbi-Colace) 8.6-50 mg per tablet 2 tablet, 2 tablet, oral, BID, BENJAMIN Tadeo, 2 tablet at 06/18/23 0856 topiramate (Topamax) tablet 50 mg, 50 mg, oral, BID, BENJAMIN Dawn, 50 mg at 06/19/23 1202 Past Medical History Past Medical History: Diagnosis Date Calculus of bile duct with obstruction 06/17/2023 Depression 5-16-21 Dizziness and giddiness 04/02/2023 JUANA (generalized anxiety disorder) 05/19/2023 Irritable bowel syndrome 4-20-19 Migraines Near syncope 02/16/2023 Other specified health status No pertinent past medical history Placenta previa antepartum in second trimester 02/25/2020 PTSD (post-traumatic stress disorder) 05/19/2023 PVC's (premature ventricular contractions) 02/16/2023 Seborrheic dermatitis 06/17/2023 Vitamin D deficiency 02/16/2023 Physical Exam Vitam Signs: Temp: [35.9 C (96.6 F)-36.6 C (97.9 F)] 36.3 C (97.3 F) Heart Rate: [59-80] 59 Resp: [11-17] 16 BP: (89-119)/(43-70) 101/61 Constitutional: No acute distress HENT: normocephalic, some facial hair Thyroid: minimal thyromegaly Eyes: anicteric, normal EOM Cardiovascular: normal HR, normal S1 and S2 Respiratory:normal breath sounds. Normal chest wall excursion GI: Soft, no distension or tenderness Skin: warm and dry, no rash Musculoskeletal/Extremities: no edema Neurologic: Alert and oriented x 3 Psychiatric: Pleasant, cooperative Labs: Results from last 7 days Lab Units 06/19/23 1137 SODIUM mmol/L 137 POTASSIUM mmol/L 3.6 CHLORIDE mmol/L 107 CO2 mmol/L 23 BUN mg/dL 10 CREATININE mg/dL 0.74 CALCIUM mg/dL 9.0 PROTEIN TOTAL g/dL 7.2 BILIRUBIN TOTAL mg/dL 0.6 ALK PHOS U/L 222* ALT U/L 232* AST U/L 265* GLUCOSE mg/dL 111* Results from last 7 days Lab Units 06/17/23 0619 06/16/23 1720 HEMOGLOBIN A1C % -- 7.3* CHOLESTEROL mg/dL 195 -- TRIGLYCERIDES mg/dL 214* -- HDL mg/dL 30.3 -- Results from last 7 days Lab Units 06/19/23 1616 06/19/23 1137 06/19/23 1123 06/19/23 1023 06/19/23 0658 06/19/23 0559 06/19/23 0414 06/19/23 0151 06/18/23 2221 06/18/23201906/18/23 1740 06/18/23 1043 06/18/23 0736 06/17/23 0637 06/17/23 0619 06/16/23 2114 06/16/23 1720 POCT GLUCOSE mg/dL 153* -- 117* 123* 110* 110* 121* 119* 176* 195* 113* < > -- < > -- < > -- GLUCOSE mg/dL -- 111* -- -- -- -- -- -- -- -- -- -- 139* -- 142* -- 421* < > = values in this interval not displayed. Results from last 7 days Lab Units 06/18/23 0736 06/17/23 0619 TSH mIU/L -- 5.79* FREE T4 ng/dL 1.15* 1.08 Results from last 7 days Lab Units 06/18/23 0857 THYROID PEROXIDASE AB IU/mL 58 Assessment and Plan: DM type 2. On insulin sliding scale. Pt has a plan where she will try diet and exercise first and if this fails then she will accept taking medications. Abnormal LFT's plus signs of portal HTN per EGD + persistent N and V. Possible liver biopsy tomorrow. Abnormal thyroid labs. Pos TPO antibodies. Elevated FT4 sec to hepatitis like picture. TSH is elevated. Picture suggests Aditya's thyroiditis. Lipid profile suggestive of diabetic dyslipidemia. Vit D def. Possibility of PCOS is there. This is not the time to do an investigation while in-patient. Chelly Ruiz MD * M Tracy Pollard MD - 06/19/2023 8:53 AM EST Subjective Patient had uneventful night does not complain about any chest pain shortness of breath still awaiting right upper quadrant ultrasound Nursing staff was interviewed Objectives Last Recorded Vitals Blood pressure 103/51, pulse 62, temperature 36.1 C (97 F), temperature source Temporal, resp. rate16, height 1.549 m (5' 0.98), weight 82.1 kg (181 lb), last menstrual period 06/02/2023, SpO2 96 %. Physical Exam HENT: Right Ear: External ear normal. Left Ear: External ear normal. Mouth/Throat: Mouth: Mucous membranes are moist. Cardiovascular: Rate and Rhythm: Normal rate and regular rhythm. Heart sounds: No murmur heard. No friction rub. No gallop. Pulmonary: Effort: No accessory muscle usage or respiratory distress. Breath sounds: No stridor. No wheezing or rhonchi. Chest: Chest wall: No tenderness. Abdominal: General: There is no distension. Palpations: There is no mass. Tenderness: There is no abdominal tenderness. There is no guarding or rebound. Musculoskeletal: General: No deformity or signs of injury. Cervical back: No rigidity or tenderness. Normal range of motion. Right lower leg: No edema. Left lower leg: No edema. Skin: Coloration: Skin is not jaundiced or pale. Findings: No lesion. Neurological: General: No focal deficit present. Mental Status: He is alert, oriented to person, place, and time and easily aroused. Cranial Nerves: No cranial nerve deficit. Sensory: No sensory deficit. Motor: No weakness. Labs Admission on 06/17/2023 Component Date Value Ref Range Status Magnesium 06/17/2023 1.74 1.60 - 2.40 mg/dL Final WBC 06/17/2023 9.2 4.4 - 11.3 x10*3/uL Final nRBC 06/17/2023 0.0 0.0 - 0.0 /100 WBCs Final RBC 06/17/2023 4.27 4.00 - 5.20 x10*6/uL Final Hemoglobin 06/17/2023 12.2 12.0 - 16.0 g/dL Final Hematocrit 06/17/2023 37.8 36.0 - 46.0 % Final MCV 06/17/2023 89 80 - 100 fL Final MCH 06/17/2023 28.6 26.0 - 34.0 pg Final MCHC 06/17/2023 32.3 32.0 - 36.0 g/dL Final RDW 06/17/2023 13.5 11.5 - 14.5 % Final Platelets 06/17/2023 203 150 - 450 x10*3/uL Final Glucose 06/17/2023 142 (H) 74 - 99 mg/dL Final Sodium 06/17/2023 137 136 - 145 mmol/L Final Potassium 06/17/2023 3.6 3.5 - 5.3 mmol/L Final Chloride 06/17/2023 108 (H) 98 - 107 mmol/L Final Bicarbonate 06/17/2023 18 (L) 21 - 32 mmol/L Final Anion Gap 06/17/2023 15 10 - 20 mmol/L Final Urea Nitrogen 06/17/2023 14 6 - 23 mg/dL Final Creatinine 06/17/2023 0.63 0.50 - 1.05 mg/dL Final eGFR 06/17/2023 >90 >60 mL/min/1.73m*2 Final Calculations of estimated GFR are performed using the 2020 CKD-EPI Study Refit equation without therace variable for the IDMS-Traceable creatinine methods. https://jasn.asnjournals.org/content/early//ASN.5334383628 Calcium 06/17/2023 8.7 8.6 - 10.3 mg/dL Final Albumin 06/17/2023 3.6 3.4 - 5.0 g/dL Final Alkaline Phosphatase 06/17/2023 195 (H) 33 - 110 U/L Final Total Protein 06/17/2023 6.5 6.4 - 8.2 g/dL Final AST 06/17/2023 267 (H) 9 - 39 U/L Final Bilirubin, Total 06/17/2023 0.5 0.0 - 1.2 mg/dL Final ALT 06/17/2023 214 (H) 7 - 45 U/L Final Patients treated with Sulfasalazine may generate falsely decreased results for ALT. Phosphorus 06/17/2023 3.3 2.5 - 4.9 mg/dL Final The performance characteristics of phosphorus testing in heparinized plasma have been validated by the individual laboratory site where testing is performed. Testing on heparinized plasma is not approved by the FDA; however, such approval is not necessary. POCT Glucose 06/17/2023 172 (H) 74 - 99 mg/dL Final Ammonia 06/17/2023 37 16 - 53 umol/L Final POCT Glucose 06/17/2023 144 (H) 74 - 99 mg/dL Final Albumin, Urine Random 06/16/2023 8.3 Not established mg/L Final Creatinine, Urine Random 06/16/2023 32.3 20.0 - 320.0 mg/dL Final Albumin/Creatine Ratio 06/16/2023 25.7 <30.0 ug/mg Creat Final Cholesterol 06/17/2023 195 0 - 199 mg/dL Final Age Desirable Borderline High High 0-19 Y 0 - 169 170 - 199 >/= 200 20-24 Y 0 - 189 190 - 224 >/= 225 >24 Y 0 - 199 200 - 239 >/= 240 All ranges are based on fasting samples. Specific therapeutic targets will vary based on patient-specific cardiac risk. Pediatric guidelines reference:Pediatrics 2011, 128(S5).Adult guidelines reference: NCEP ATPIII Guidelines,MICHELLE 2001, 258:2486-97 Venipuncture immediately after or during the administration of Metamizole may lead to falsely low results. Testing should be performed immediately prior to Metamizole dosing. HDL-Cholesterol 06/17/2023 30.3 mg/dL Final Age Very Low Low Normal High 0-19 Y < 35 < 40 40-45 ---- 20-24 Y ---- < 40 >45 ---- >24 Y ---- < 40 40-60 >60 Cholesterol/HDL Ratio 06/17/2023 6.4 Final Ref Values Desirable < 3.4 High Risk > 5.0 LDL Calculated 06/17/2023 122 (H) <=99 mg/dL Final Near Borderline AGE Desirable Optimal High High Very High 0-19 Y 0 - 109 --- 110-129 >/= 130 ---- 20-24 Y 0 - 119 --- 120-159 >/= 160 ---- >24 Y 0 - 99 100-129 130-159 160-189 >/=190 VLDL 06/17/2023 43 (H) 0 - 40 mg/dL Final Triglycerides 06/17/2023 214 (H) 0 - 149 mg/dL Final Age Desirable Borderline High High Very High 0 D-90 D 19 - 174 ---- ---- ---- 91 D- 9 Y 0 - 74 75 - 99 >/= 100 ---- 10-19 Y 0 - 89 90 - 129 >/= 130 ---- 20-24 Y 0 - 114 115 - 149 >/= 150 ---- >24 Y 0 - 149 150 - 199 200- 499 >/= 500 Venipuncture immediately after or during the administration of Metamizole may lead to falsely low results. Testing should be performed immediately prior to Metamizole dosing. Non HDL Cholesterol 06/17/2023 165 (H) 0 - 149 mg/dL Final Age Desirable Borderline High High Very High 0-19 Y 0 - 119 120 - 144 >/= 145 >/= 160 20-24 Y 0 - 149 150 - 189 >/= 190 ---- >24 Y 30 mg/dL above LDL Cholesterol goal Thyroid Stimulating Hormone 06/17/2023 5.79 (H) 0.44 - 3.98 mIU/L Final Thyroxine, Free 06/17/2023 1.08 0.61 - 1.12 ng/dL Final POCT Glucose 06/17/2023 123 (H) 74 - 99 mg/dL Final POCT Glucose 06/17/2023 103 (H) 74 - 99 mg/dL Final POCT Glucose 06/17/2023 165 (H) 74 - 99 mg/dL Final Magnesium 06/18/2023 2.05 1.60 - 2.40 mg/dL Final WBC 06/18/2023 8.5 4.4 - 11.3 x10*3/uL Final nRBC 06/18/2023 0.0 0.0 - 0.0 /100 WBCs Final RBC 06/18/2023 4.63 4.00 - 5.20 x10*6/uL Final Hemoglobin 06/18/2023 13.3 12.0 - 16.0 g/dL Final Hematocrit 06/18/2023 43.4 36.0 - 46.0 % Final MCV 06/18/2023 94 80 - 100 fL Final MCH 06/18/2023 28.7 26.0 - 34.0 pg Final MCHC 06/18/2023 30.6 (L) 32.0 - 36.0 g/dL Final RDW 06/18/2023 13.8 11.5 - 14.5 % Final Platelets 06/18/2023 200 150 - 450 x10*3/uL Final Glucose 06/18/2023 139 (H) 74 - 99 mg/dL Final Sodium 06/18/2023 134 (L) 136 - 145 mmol/L Final Potassium 06/18/2023 3.8 3.5 - 5.3 mmol/L Final MILD HEMOLYSIS DETECTED. The result may be falsely elevated due to hemolysis or other interferents.Clinical correlation is recommended. Repeat testing may be considered. Chloride 06/18/2023 105 98 - 107 mmol/L Final Bicarbonate 06/18/2023 19 (L) 21 - 32 mmol/L Final Anion Gap 06/18/2023 14 10 - 20 mmol/L Final Urea Nitrogen 06/18/2023 10 6 - 23 mg/dL Final Creatinine 06/18/2023 0.70 0.50 - 1.05 mg/dL Final eGFR 06/18/2023 >90 >60 mL/min/1.73m*2 Final Calculations of estimated GFR are performed using the 2020 CKD-EPI Study Refit equation without therace variable for the IDMS-Traceable creatinine methods. https://jasn.asnjournals.org/content/early//ASN.4122396059 Calcium 06/18/2023 9.4 8.6 - 10.3 mg/dL Final Albumin 06/18/2023 4.0 3.4 - 5.0 g/dL Final Alkaline Phosphatase 06/18/2023 224 (H) 33 - 110 U/L Final Total Protein 06/18/2023 7.2 6.4 - 8.2 g/dL Final AST 06/18/2023 258 (H) 9 - 39 U/L Final MILD HEMOLYSIS DETECTED. The result may be falsely elevated due to hemolysis or other interferents.Clinical correlation is recommended. Repeat testing may be considered. Bilirubin, Total 06/18/2023 0.7 0.0 - 1.2 mg/dL Final ALT 06/18/2023 230 (H) 7 - 45 U/L Final Patients treated with Sulfasalazine may generate falsely decreased results for ALT. POCT Glucose 06/17/2023 120 (H) 74 - 99 mg/dL Final POCT Glucose 06/18/2023 126 (H) 74 - 99 mg/dL Final POCT Glucose 06/18/2023 171 (H) 74 - 99 mg/dL Final Thyroxine, Free 06/18/2023 1.15 (H) 0.61 - 1.12 ng/dL Final Thyroid Peroxidase (TPO) Antibody 06/18/2023 58 <=60 IU/mL Final POCT Glucose 06/18/2023 176 (H) 74 - 99 mg/dL Final POCT Glucose 06/18/2023 88 74 - 99 mg/dL Final POCT Glucose 06/18/2023 113 (H) 74 - 99 mg/dL Final POCT Glucose 06/18/2023 195 (H) 74 - 99 mg/dL Final POCT Glucose 06/18/2023 176 (H) 74 - 99 mg/dL Final POCT Glucose 06/19/2023 119 (H) 74 - 99 mg/dL Final POCT Glucose 06/19/2023 121 (H) 74 - 99 mg/dL Final POCT Glucose 06/19/2023 110 (H) 74 - 99 mg/dL Final POCT Glucose 06/19/2023 110 (H) 74 - 99 mg/dL Final Imaging US gallbladder Narrative: Interpreted By: Jorge Wilson, STUDY: US GALLBLADDER; 06/18/2023 6:55 pm INDICATION: Signs/Symptoms:Right upper quadrant pain. COMPARISON: 05/23/2023 ACCESSION NUMBER(S): [id number] ORDERING CLINICIAN: KATIE GARLAND TECHNIQUE: Multiple images of the right upper quadrant were obtained. FINDINGS: LIVER: The liver measures 22.2 cm and is diffusely echogenic in appearance, consistent with diffuse fatty infiltration. The resulting increased beam attenuation thereby limiting evaluation of the liver for focal lesions. Within the limitations, no focal lesions are seen. GALLBLADDER: Surgically absent. BILE DUCTS: No evidence of intra or extrahepatic biliary dilatation is identified; the common bile duct measures .5 cm. PANCREAS: The visualized pancreas is unremarkable in appearance. RIGHT KIDNEY: The right kidney measures 11.6 cm in length. The renal cortical echogenicity and thickness are within normal limit. No hydronephrosis or renal calculi are seen. Impression: Enlarged liver with diffuse fatty infiltration. The patient is status post cholecystectomy. Overall, stable appearance when compared to 05/23/2023. MACRO: None Signed by: Jorge Wilson 06/19/2023 6:38 AM Dictation workstation: [id number] Patient Active Problem List Diagnosis Atypical chest pain Depression Exotropia Hair loss Near syncope Obesity affecting in second trimester Placenta previa antepartum in second trimester Placenta previa without hemorrhage, antepartum PVC's (premature ventricular contractions) Skin tag Vitamin D deficiency Diarrhea due to malabsorption Transaminitis RUQ abdominal pain New onset type 2 diabetes mellitus (CMS/HCC) Hyperglycemia Hepatic steatosis Calculus of bile duct with obstruction Dizziness and giddiness PTSD (post-traumatic stress disorder) JUANA (generalized anxiety disorder) Seborrheic dermatitis Assessment/Plan Principal Problem: Transaminitis Active Problems: RUQ abdominal pain New onset type 2 diabetes mellitus (CMS/HCC) Hyperglycemia Hepatic steatosis Right upper quadrant pain waiting for ultrasound Abdominal pain constipation has resolved continue to monitor symptoms Maicol Pollard MD * Porfirio Norton, TOOL DISPATCHER-RED CROSS WORKER - 06/18/2023 3:45 PM EST Subjective Patient sitting up in bed with continued RUQ discomfort. Endorses having emesis after clear liquid intake. She is having bowel movements with MiraLAX. Liver enzymes remain stably elevated with bilirubin WNL. Plan for EGD tomorrow. Objective Blood pressure 105/58, pulse 64, temperature 37 C (98.6 F), temperature source Temporal, resp. rate17, height 1.549 m (5' 0.98), weight 85.3 kg (188 lb 0.8 oz), last menstrual period 06/02/2023, SpO2 97 %. Physical Exam Constitutional: Alert, pleasant and interactive, in NAD Eyes: PERRL, sclera clear, no conjunctival injection Skin: Warm and dry, no rash or ecchymosis ENMT: Mucous membranes moist, no lesions noted Resp: CTAB, even and unlabored CV: RRR, normal S1, S2, no m,r,g GI: +BS, soft, round, RUQ TTP, no rebound tenderness or guarding, no palpable masses or organomegaly MSK: 5/5 strength, ROM intact, no joint swelling Extremities: Extremities warm, no edema, contusions, wounds or cyanosis Neuro: Alert and oriented x3 Psych: Appropriate mood and behavior Medications Scheduled medications ARIPiprazole, 5 mg, oral, Daily bisacodyl, 10 mg, rectal, Daily FLUoxetine, 20 mg, oral, Daily insulin glargine, 12 Units, subcutaneous, Daily insulin lispro, 0-10 Units, subcutaneous, q4h loratadine, 10 mg, oral, Daily minoxidil, 1.25 mg, oral, Daily pantoprazole, 40 mg, oral, Daily before breakfast polyethylene glycol, 17 g, oral, TID sennosides-docusate sodium, 2 tablet, oral, BID topiramate, 100 mg, oral, BID Continuous medications PRN medications PRN medications: dextrose, dicyclomine, glucagon, lubricating eye drops, melatonin, ondansetron, prochlorperazine Labs Lab Results Component Value Date WBC 8.5 06/18/2023 HGB 13.3 06/18/2023 HCT 43.4 06/18/2023 MCV 94 06/18/2023 PLT 200 06/18/2023 Lab Results Component Value Date GLUCOSE 139 (H) 06/18/2023 CALCIUM 9.4 06/18/2023 NA 134 (L) 06/18/2023 K 3.8 06/18/2023 CO2 19 (L) 06/18/2023 CL 105 06/18/2023 BUN 10 06/18/2023 CREATININE 0.70 06/18/2023 Lab Results Component Value Date ALT 230 (H) 06/18/2023 AST 258 (H) 06/18/2023 ALKPHOS 224 (H) 06/18/2023 BILITOT 0.7 06/18/2023 Lab Results Component Value Date IRON 108 12/19/2021 TIBC 382 12/19/2021 FERRITIN 943 (H) 06/12/2023 Lab Results Component Value Date INR 1.1 02/03/2021 PROTIME 12.6 02/03/[address] A/P with IV contrast noting: IMPRESSION: 1. Hepatic steatosis. 2. Previous cholecystectomy. 3. Stool-filled colon. Signed by Terry Weems M.D. Assessment: Anahi Dwyer is a 37 y.o. female presenting with RUQ pain, nausea. PMH significant for obstructive cholelithiasis s/p cholecystectomy, recent norovirus, diarrhea. Patient follows with GI and [place]-Dr. Quezada who recently saw her for diarrhea improved with cholestyramine. Transaminitis with negative workup thus far. Plan for possible FibroScan. Liver enzymes also elevated in 2020. CT not noting any biliary abnormalities. Does note stool-filled colon. Hepatic steatosis. Patient sitting up in bed with continued RUQ discomfort. Endorses having emesis after clear liquid intake. She is having bowel movements with MiraLAX. Liver enzymes remain stably elevated with bilirubin WNL. # transaminitis- could be multifactorial: Recent norovirus v hepatic steatosis- likely unrelated topain # abd pain- possibly r/t constipation, colonic spasms # stool filled colon # hepatic steatosis # recent norovirus Plan: - continue supportive care - continue clear liquids - NPO after MN for EGD tomorrow - continue IVF's until able tolerate sufficient clears - continue miralax tid - continue analgesics and antiemetics as needed - continue to follow up remaining liver work up - continue to trend liver enzymes daily - continue bentyl d/t concern for colonic spasms - pt will continue to follow up with her outpatient GI in [place] Plan has been discussed with Dr. Campbell. GI will continue to follow. Porfirio Norton APRN/CORINA ANDA Pollard MD - 06/18/2023 9:30 AM EST Subjective Patient had uneventful night does not complain about any chest pain shortness of breath patient continued to have nausea vomiting abdominal pain Nursing staff was interviewed Objectives Last Recorded Vitals Blood pressure 100/55, pulse 66, temperature 35.9 C (96.6 F), temperature source Temporal, resp. rate 17, height 1.549 m (5' 0.98), weight 85.3 kg (188 lb 0.8 oz), last menstrual period 06/02/2023, SpO2 98 %. Physical Exam HENT: Right Ear: External ear normal. Left Ear: External ear normal. Mouth/Throat: Mouth: Mucous membranes are moist. Cardiovascular: Rate and Rhythm: Normal rate and regular rhythm. Heart sounds: No murmur heard. No friction rub. No gallop. Pulmonary: Effort: No accessory muscle usage or respiratory distress. Breath sounds: No stridor. No wheezing or rhonchi. Chest: Chest wall: No tenderness. Abdominal: General: There is no distension. Palpations: There is no mass. Tenderness: There is no abdominal tenderness. There is no guarding or rebound. Musculoskeletal: General: No deformity or signs of injury. Cervical back: No rigidity or tenderness. Normal range of motion. Right lower leg: No edema. Left lower leg: No edema. Skin: Coloration: Skin is not jaundiced or pale. Findings: No lesion. Neurological: General: No focal deficit present. Mental Status: He is alert, oriented to person, place, and time and easily aroused. Cranial Nerves: No cranial nerve deficit. Sensory: No sensory deficit. Motor: No weakness. Labs Admission on 06/17/2023 Component Date Value Ref Range Status Magnesium 06/17/2023 1.74 1.60 - 2.40 mg/dL Final WBC 06/17/2023 9.2 4.4 - 11.3 x10*3/uL Final nRBC 06/17/2023 0.0 0.0 - 0.0 /100 WBCs Final RBC 06/17/2023 4.27 4.00 - 5.20 x10*6/uL Final Hemoglobin 06/17/2023 12.2 12.0 - 16.0 g/dL Final Hematocrit 06/17/2023 37.8 36.0 - 46.0 % Final MCV 06/17/2023 89 80 - 100 fL Final MCH 06/17/2023 28.6 26.0 - 34.0 pg Final MCHC 06/17/2023 32.3 32.0 - 36.0 g/dL Final RDW 06/17/2023 13.5 11.5 - 14.5 % Final Platelets 06/17/2023 203 150 - 450 x10*3/uL Final Glucose 06/17/2023 142 (H) 74 - 99 mg/dL Final Sodium 06/17/2023 137 136 - 145 mmol/L Final Potassium 06/17/2023 3.6 3.5 - 5.3 mmol/L Final Chloride 06/17/2023 108 (H) 98 - 107 mmol/L Final Bicarbonate 06/17/2023 18 (L) 21 - 32 mmol/L Final Anion Gap 06/17/2023 15 10 - 20 mmol/L Final Urea Nitrogen 06/17/2023 14 6 - 23 mg/dL Final Creatinine 06/17/2023 0.63 0.50 - 1.05 mg/dL Final eGFR 06/17/2023 >90 >60 mL/min/1.73m*2 Final Calculations of estimated GFR are performed using the 2020 CKD-EPI Study Refit equation without therace variable for the IDMS-Traceable creatinine methods. https://jasn.asnjournals.org/content//ASN.8334326774 Calcium 06/17/2023 8.7 8.6 - 10.3 mg/dL Final Albumin 06/17/2023 3.6 3.4 - 5.0 g/dL Final Alkaline Phosphatase 06/17/2023 195 (H) 33 - 110 U/L Final Total Protein 06/17/2023 6.5 6.4 - 8.2 g/dL Final AST 06/17/2023 267 (H) 9 - 39 U/L Final Bilirubin, Total 06/17/2023 0.5 0.0 - 1.2 mg/dL Final ALT 06/17/2023 214 (H) 7 - 45 U/L Final Patients treated with Sulfasalazine may generate falsely decreased results for ALT. Phosphorus 06/17/2023 3.3 2.5 - 4.9 mg/dL Final The performance characteristics of phosphorus testing in heparinized plasma have been validated by the individual laboratory site where testing is performed. Testing on heparinized plasma is not approved by the FDA; however, such approval is not necessary. POCT Glucose 06/17/2023 172 (H) 74 - 99 mg/dL Final Ammonia 06/17/2023 37 16 - 53 umol/L Final POCT Glucose 06/17/2023 144 (H) 74 - 99 mg/dL Final Albumin, Urine Random 06/16/2023 8.3 Not established mg/L Final Creatinine, Urine Random 06/16/2023 32.3 20.0 - 320.0 mg/dL Final Albumin/Creatine Ratio 06/16/2023 25.7 <30.0 ug/mg Creat Final Cholesterol 06/17/2023 195 0 - 199 mg/dL Final Age Desirable Borderline High High 0-19 Y 0 - 169 170 - 199 >/= 200 20-24 Y 0 - 189 190 - 224 >/= 225 >24 Y 0 - 199 200 - 239 >/= 240 All ranges are based on fasting samples. Specific therapeutic targets will vary based on patient-specific cardiac risk. Pediatric guidelines reference:Pediatrics 2011, 128(S5).Adult guidelines reference: NCEP ATPIII Guidelines,MICHELLE 2001, 258:2486-97 Venipuncture immediately after or during the administration of Metamizole may lead to falsely low results. Testing should be performed immediately prior to Metamizole dosing. HDL-Cholesterol 06/17/2023 30.3 mg/dL Final Age Very Low Low Normal High 0-19 Y < 35 < 40 40-45 ---- 20-24 Y ---- < 40 >45 ---- >24 Y ---- < 40 40-60 >60 Cholesterol/HDL Ratio 06/17/2023 6.4 Final Ref Values Desirable < 3.4 High Risk > 5.0 LDL Calculated 06/17/2023 122 (H) <=99 mg/dL Final Near Borderline AGE Desirable Optimal High High Very High 0-19 Y 0 - 109 --- 110-129 >/= 130 ---- 20-24 Y 0 - 119 --- 120-159 >/= 160 ---- >24 Y 0 - 99 100-129 130-159 160-189 >/=190 VLDL 06/17/2023 43 (H) 0 - 40 mg/dL Final Triglycerides 06/17/2023 214 (H) 0 - 149 mg/dL Final Age Desirable Borderline High High Very High 0 D-90 D 19 - 174 ---- ---- ---- 91 D- 9 Y 0 - 74 75 - 99 >/= 100 ---- 10-19 Y 0 - 89 90 - 129 >/= 130 ---- 20-24 Y 0 - 114 115 - 149 >/= 150 ---- >24 Y 0 - 149 150 - 199 200- 499 >/= 500 Venipuncture immediately after or during the administration of Metamizole may lead to falsely low results. Testing should be performed immediately prior to Metamizole dosing. Non HDL Cholesterol 06/17/2023 165 (H) 0 - 149 mg/dL Final Age Desirable Borderline High High Very High 0-19 Y 0 - 119 120 - 144 >/= 145 >/= 160 20-24 Y 0 - 149 150 - 189 >/= 190 ---- >24 Y 30 mg/dL above LDL Cholesterol goal Thyroid Stimulating Hormone 06/17/2023 5.79 (H) 0.44 - 3.98 mIU/L Final Thyroxine, Free 06/17/2023 1.08 0.61 - 1.12 ng/dL Final POCT Glucose 06/17/2023 123 (H) 74 - 99 mg/dL Final POCT Glucose 06/17/2023 103 (H) 74 - 99 mg/dL Final POCT Glucose 06/17/2023 165 (H) 74 - 99 mg/dL Final Magnesium 06/18/2023 2.05 1.60 - 2.40 mg/dL Final WBC 06/18/2023 8.5 4.4 - 11.3 x10*3/uL Final nRBC 06/18/2023 0.0 0.0 - 0.0 /100 WBCs Final RBC 06/18/2023 4.63 4.00 - 5.20 x10*6/uL Final Hemoglobin 06/18/2023 13.3 12.0 - 16.0 g/dL Final Hematocrit 06/18/2023 43.4 36.0 - 46.0 % Final MCV 06/18/2023 94 80 - 100 fL Final MCH 06/18/2023 28.7 26.0 - 34.0 pg Final MCHC 06/18/2023 30.6 (L) 32.0 - 36.0 g/dL Final RDW 06/18/2023 13.8 11.5 - 14.5 % Final Platelets 06/18/2023 200 150 - 450 x10*3/uL Final Glucose 06/18/2023 139 (H) 74 - 99 mg/dL Final Sodium 06/18/2023 134 (L) 136 - 145 mmol/L Final Potassium 06/18/2023 3.8 3.5 - 5.3 mmol/L Final MILD HEMOLYSIS DETECTED. The result may be falsely elevated due to hemolysis or other interferents.Clinical correlation is recommended. Repeat testing may be considered. Chloride 06/18/2023 105 98 - 107 mmol/L Final Bicarbonate 06/18/2023 19 (L) 21 - 32 mmol/L Final Anion Gap 06/18/2023 14 10 - 20 mmol/L Final Urea Nitrogen 06/18/2023 10 6 - 23 mg/dL Final Creatinine 06/18/2023 0.70 0.50 - 1.05 mg/dL Final eGFR 06/18/2023 >90 >60 mL/min/1.73m*2 Final Calculations of estimated GFR are performed using the 2020 CKD-EPI Study Refit equation without therace variable for the IDMS-Traceable creatinine methods. https://jasn.asnjournals.org/content/early//ASN.5492228270 Calcium 06/18/2023 9.4 8.6 - 10.3 mg/dL Final Albumin 06/18/2023 4.0 3.4 - 5.0 g/dL Final Alkaline Phosphatase 06/18/2023 224 (H) 33 - 110 U/L Final Total Protein 06/18/2023 7.2 6.4 - 8.2 g/dL Final AST 06/18/2023 258 (H) 9 - 39 U/L Final MILD HEMOLYSIS DETECTED. The result may be falsely elevated due to hemolysis or other interferents.Clinical correlation is recommended. Repeat testing may be considered. Bilirubin, Total 06/18/2023 0.7 0.0 - 1.2 mg/dL Final ALT 06/18/2023 230 (H) 7 - 45 U/L Final Patients treated with Sulfasalazine may generate falsely decreased results for ALT. POCT Glucose 06/17/2023 120 (H) 74 - 99 mg/dL Final POCT Glucose 06/18/2023 126 (H) 74 - 99 mg/dL Final POCT Glucose 06/18/2023 171 (H) 74 - 99 mg/dL Final Thyroxine, Free 06/18/2023 1.15 (H) 0.61 - 1.12 ng/dL Final Admission on 06/16/2023, Discharged on 06/17/2023 Component Date Value Ref Range Status HCG, Urine 06/16/2023 NEGATIVE NEGATIVE Final Glucose 06/16/2023 421 (H) 74 - 99 mg/dL Final Sodium 06/16/2023 131 (L) 136 - 145 mmol/L Final Potassium 06/16/2023 3.8 3.5 - 5.3 mmol/L Final Chloride 06/16/2023 101 98 - 107 mmol/L Final Bicarbonate 06/16/2023 19 (L) 21 - 32 mmol/L Final Anion Gap 06/16/2023 15 10 - 20 mmol/L Final Urea Nitrogen 06/16/2023 16 6 - 23 mg/dL Final Creatinine 06/16/2023 0.73 0.50 - 1.05 mg/dL Final eGFR 06/16/2023 >90 >60 mL/min/1.73m*2 Final Calculations of estimated GFR are performed using the 2020 CKD-EPI Study Refit equation without therace variable for the IDMS-Traceable creatinine methods. https://jasn.asnjournals.org/content//ASN.6468911104 Calcium 06/16/2023 9.6 8.6 - 10.3 mg/dL Final Albumin 06/16/2023 4.5 3.4 - 5.0 g/dL Final Alkaline Phosphatase 06/16/2023 262 (H) 33 - 110 U/L Final Total Protein 06/16/2023 7.6 6.4 - 8.2 g/dL Final AST 06/16/2023 159 (H) 9 - 39 U/L Final Bilirubin, Total 06/16/2023 0.3 0.0 - 1.2 mg/dL Final ALT 06/16/2023 219 (H) 7 - 45 U/L Final Patients treated with Sulfasalazine may generate falsely decreased results for ALT. Lipase 06/16/2023 57 9 - 82 U/L Final WBC 06/16/2023 9.8 4.4 - 11.3 x10*3/uL Final nRBC 06/16/2023 0.0 0.0 - 0.0 /100 WBCs Final RBC 06/16/2023 4.63 4.00 - 5.20 x10*6/uL Final Hemoglobin 06/16/2023 13.6 12.0 - 16.0 g/dL Final Hematocrit 06/16/2023 41.5 36.0 - 46.0 % Final MCV 06/16/2023 90 80 - 100 fL Final MCH 06/16/2023 29.4 26.0 - 34.0 pg Final MCHC 06/16/2023 32.8 32.0 - 36.0 g/dL Final RDW 06/16/2023 13.3 11.5 - 14.5 % Final Platelets 06/16/2023 223 150 - 450 x10*3/uL Final Color, Urine 06/16/2023 Straw Straw, Yellow Final Appearance, Urine 06/16/2023 Clear Clear Final Specific [place], Urine 06/16/2023 1.027 1.005 - 1.035 Final pH, Urine 06/16/2023 5.0 5.0, 5.5, 6.0, 6.5, 7.0, 7.5, 8.0 Final Protein, Urine 06/16/2023 NEGATIVE NEGATIVE mg/dL Final Glucose, Urine 06/16/2023 >=500 (3+) (A) NEGATIVE mg/dL Final Blood, Urine 06/16/2023 NEGATIVE NEGATIVE Final Ketones, Urine 06/16/2023 NEGATIVE NEGATIVE mg/dL Final Bilirubin, Urine 06/16/2023 NEGATIVE NEGATIVE Final Urobilinogen, Urine 06/16/2023 <2.0 <2.0 mg/dL Final Nitrite, Urine 06/16/2023 NEGATIVE NEGATIVE Final Leukocyte Esterase, Urine 06/16/2023 NEGATIVE NEGATIVE Final Extra Tube 06/16/2023 Hold for add-ons. Final Auto resulted. Hemoglobin A1C 06/16/2023 7.3 (H) see below % Final Estimated Average Glucose 06/16/2023 163 Not Established mg/dL Final Ventricular Rate 06/16/2023 76 BPM Preliminary Atrial Rate 06/16/2023 76 BPM Preliminary MT Interval 06/16/2023 142 ms Preliminary QRS Duration 06/16/2023 80 ms Preliminary QT Interval 06/16/2023 364 ms Preliminary QTC Calculation(Bazett) 06/16/2023 409 ms Preliminary P [place] 06/16/2023 3 degrees Preliminary R [place] 06/16/2023 74 degrees Preliminary T [place] 06/16/2023 31 degrees Preliminary QRS Count 06/16/2023 12 beats Preliminary Q Onset 06/16/2023 219 ms Preliminary P Onset 06/16/2023 148 ms Preliminary P Offset 06/16/2023 197 ms Preliminary T Offset 06/16/2023 401 ms Preliminary QTC Fredericia 06/16/2023 393 ms Preliminary POCT Glucose 06/16/2023 201 (H) 74 - 99 mg/dL Final POCT Glucose 06/16/2023 113 (H) 74 - 99 mg/dL Final Imaging ECG 12 Lead Normal sinus rhythm Cannot rule out Inferior infarct , age undetermined Abnormal ECG When compared with ECG of 23-JAN-2022 15:29, No significant change was found Patient Active Problem List Diagnosis Atypical chest pain Depression Exotropia Hair loss Near syncope Obesity affecting in second trimester Placenta previa antepartum in second trimester Placenta previa without hemorrhage, antepartum PVC's (premature ventricular contractions) Skin tag Vitamin D deficiency Diarrhea due to malabsorption Transaminitis RUQ abdominal pain New onset type 2 diabetes mellitus (CMS/HCC) Hyperglycemia Hepatic steatosis Calculus of bile duct with obstruction Dizziness and giddiness PTSD (post-traumatic stress disorder) JUANA (generalized anxiety disorder) Seborrheic dermatitis Assessment/Plan Principal Problem: Transaminitis Active Problems: RUQ abdominal pain New onset type 2 diabetes mellitus (CMS/HCC) Hyperglycemia Hepatic steatosis Related to hepatic steatosis patient continued to have right upper quadrant pain I will order rightupper quadrant ultrasound rule out possibility of any gallbladder etiology History of diabetes new onset continue to monitor continue the sliding scale IBS with constipation start patient on Dulcolax suppository monitor symptoms Maicol Pollard MD * Reynold Ruiz DO - 06/18/2023 6:43 AM EST Endocrinology Inpatient Consult Progress Note PATIENT NAME: Anahi Dwyer DATE: 06/18/2023 CONSULTING PHYSICIAN: Dr. Roge Hernandez REASON FOR CONSULT: Uncontrolled T2DM. Interval Events Patient was vomiting when I saw her this morning. She tried to eat Jell-O and beef broth and had emesis. She states that she still feels queasy. She is nauseous. Denies any abdominal pain. She wanted to talk about her diabetes. Physical Examination BP 107/57 (BP Location: Left arm, Patient Position: Lying) Pulse 71 Temp 36.2 C (97.2 F) (Temporal) Resp 14 Ht 1.549 m (5' 0.98) Wt 87.1 kg (191 lb 15.3 oz) LMP 06/02/2023 (Approximate) SpO2 95% BMI 36.29 kg/m No acute distress. Appropriate affect. Regular rate and rhythm. Nonlabored respiration. Generalized abdominal tenderness. No rebound. No pedal edema bilaterally. Medications Reviewed MAR Data Recent Labs and Imaging Reviewed Assessment / Plan # Uncontrolled Type 2 Diabetes Mellitus Home Regimen: None. Hemoglobin A1c (06/14): 7.3% Nutrition: Clear Liquid Diet. New diagnosis. I discussed with her that we could proceed with therapy versus diet and exercise. The patient does feel confident that she could maintain a diet and exercise program. She admittedly thinks that she needs to be on therapy. I will have her be seen by dietitian to talk to her about carbohydrates. I am not too confident that she will be able to make drastic lifestyle changes to improve her bloodsugars. Her sugars on presentation were in the 400s. I am not keen on putting her on metformin given her gastro issues. Perhaps we can use a sulfonylurea, glimepiride 4 mg daily? We can discuss this at discharge. For now as an inpatient: -Cont glargine 12 units this morning -Change SSI to TID AC + HS -We will broach perhaps starting metformin once her abdominal pain improves. # Abnormal TFTs: TSH 5.79. Obtain FT4 and tPO. # MASLD: As seen on CT on admission. Explained that she needs to lose 5% of her body weight. She can benefit from a FibroScan as an outpatient. # HTN: uAlb:Cr found to be 25.7. No need for ACEi or ARB. #Dyslipidemia: Mildly elevated LDL. No statin for now. Counseled about dietary changes. # Class III Obesity: As above. Consider GLP-1 receptor analog and/or metformin. Reynold Ruiz DO Endocrinology, Diabetes, and Metabolism Available via [employer] Please excuse any typographical or unwanted errors within this documentation as voice recognition software was used to dictate this note. \ * Ciara Rosario RN - 06/17/2023 11:00 AM EST 06/17/23 1100 Discharge Planning Patient expects to be discharged to: Home Does the patient need discharge transport arranged? No Met with pt to review her dc plan. Pt lives at home with her and daughter. States she is independent with ADL's and able to tolerate steps without any difficulty. Pt PCP is Dr. Glez andprescriptions are filled at [facility] without any barriers noted. Pt has a ride home upon dc. documented in this [facility] Work Phone: 1(830) 814-397603-01-2024 Hospital course Narrative* Maicol Pollard MD - 06/20/2023 12:48 PM EST Discharge Diagnosis Transaminitis Issues Requiring Follow-Up Follow-up with GI related to his liver biopsy Discharge Meds Your medication list ASK your doctor about these medications Instructions Last Dose Given Next Dose Due ARIPiprazole 5 mg tablet Commonly known as: Abilify artificial tears (sbbnukr-kmkulpm-bipbuysu) 0.1-0.3-0.2 % ophthalmic solution cholestyramine 4 gram powder Commonly known as: Questran Take 1 packet (4 g) by mouth 2 times a day with meals. Dissolve in 8 oz of liquid and drink before a meal ergocalciferol 1.25 MG (08505 UT) capsule Commonly known as: Vitamin D-2 fluocinonide 0.05 % external solution Commonly known as: Lidex Massage into the scalp, no need to rinse off. ONCE A WEEK FLUoxetine 20 mg capsule Commonly known as: PROzac ketoconazole 2 % shampoo Commonly known as: NIZOral Apply topically 1 (one) time per week. AT LEAST ONCE A WEEK.LEAVE ON FOR 6 MINUTESBEFORE WASHING OFF loratadine 10 mg tablet Commonly known as: Claritin Take 1 tablet (10 mg) by mouth once daily. minoxidil 2.5 mg tablet Commonly known as: Loniten Take 0.5 tablets (1.25 mg) by mouth once daily. SUMAtriptan 100 mg tablet Commonly known as: Imitrex topiramate 25 mg tablet Commonly known as: Topamax Test Results Pending At Discharge Pending Labs Order Current Status Surgical Pathology Exam In process Surgical Pathology Exam In process Hospital Course Patient was admitted to the hospital related to nausea vomiting abdominal pain she was diagnosed with constipation and significant elevation of her LFT ultrasound consistent with hepatic steatosis patient will have liver biopsy today if possible discharged with follow-up as an outpatient with GI Pertinent Physical Exam At Time of Discharge Physical Exam HENT: Right Ear: External ear normal. Left Ear: External ear normal. Mouth/Throat: Mouth: Mucous membranes are moist. Cardiovascular: Rate and Rhythm: Normal rate and regular rhythm. Heart sounds: No murmur heard. No friction rub. No gallop. Pulmonary: Effort: No accessory muscle usage or respiratory distress. Breath sounds: No stridor. No wheezing or rhonchi. Chest: Chest wall: No tenderness. Abdominal: General: There is no distension. Palpations: There is no mass. Tenderness: There is no abdominal tenderness. There is no guarding or rebound. Musculoskeletal: General: No deformity or signs of injury. Cervical back: No rigidity or tenderness. Normal range of motion. Right lower leg: No edema. Left lower leg: No edema. Skin: Coloration: Skin is not jaundiced or pale. Findings: No lesion. Neurological: General: No focal deficit present. Mental Status: She is alert, oriented to person, place, and time and easily aroused. Cranial Nerves: No cranial nerve deficit. Sensory: No sensory deficit. Motor: No weakness. Outpatient Follow-Up Future Appointments Date Time Provider Department Center 08/14/2023 9:30 AM Titi Quezada DO [id number] [facility] 08/22/2023 10:00 AM Dustin Franklin MD [id number] [facility] Maicol Pollard MD documented in this [facility] Work Phone: 1(526) 791-686103-01-2024 Note* Post-Procedure Note - Moe Clifford, TOOL DISPATCHER-RED CROSS WORKER - 06/20/2023 10:59 AM EST Interventional Radiology Brief Postprocedure Note Attending: Augie Archibald MD Corner Cutter: none Diagnosis: Liver mass Description of procedure: Successful US guided targeted liver mass biopsy. 3 passes made. Anesthesia: MAC Complications: None Estimated Blood Loss: none Medications As of 06/20/23 1059 sodium chloride 0.9% infusion (mL/hr) Total volume: 1,060.66 mL* Dosing weight: 87.1 *From user-documented volume Date/Time Rate/Dose/Volume Action 06/17/23 0216 100 mL/hr New Bag 0224 100 mL/hr - 13.33 mL Rate Verify 0900 100 mL/hr - 714 mL Rate Verify 1220 100 mL/hr - 333.33 mL Rate Verify 1246 0 mL Stopped ondansetron (Zofran) injection 4 mg (mg) Total dose: 32 mg Dosing weight: 87.1 Date/Time Rate/Dose/Volume Action 06/17/23 0736 4 mg Given 1800 4 mg Given 06/18/23 0247 4 mg Given 0856 4 mg Given 1933 4 mg Given 06/19/23 0153 4 mg Given 1814 4 mg Given 06/20/23 0053 4 mg Given ondansetron (Zofran) injection 4 mg (mg) Total dose: 4 mg Dosing weight: 82.1 Date/Time Rate/Dose/Volume Action 06/19/23 1022 4 mg Given insulin lispro (HumaLOG) injection 0-10 Units (Units) Total dose: 8 Units Dosing weight: 87.1 Date/Time Rate/Dose/Volume Action 06/17/23 0216 2 Units Given 0630 *Not included in total Missed 1030 *Not included in total Missed 1430 *Not included in total Missed 1830 *Not included in total Missed 2230 *Not included in total Missed 06/18/23 0230 *Not included in total Missed 0640 2 Units Given 1131 2 Units Given 1430 *Not included in total Missed 1830 *Not included in total Missed 2224 2 Units Given 06/19/23 0230 *Not included in total Missed 0630 *Not included in total Missed 1030 *Not included in total Missed 1430 *Not included in total Missed 1830 *Not included in total Missed 2230 *Not included in total Missed 06/20/23 0230 *Not included in total Missed 0630 *Not included in total Missed pantoprazole (ProtoNix) injection 40 mg (mg) Total dose: 40 mg Dosing weight: 87.1 Date/Time Rate/Dose/Volume Action 06/17/23 0854 40 mg Given ketorolac (Toradol) injection 15 mg (mg) Total dose: 30 mg Dosing weight: 87.1 Date/Time Rate/Dose/Volume Action 06/17/23 0255 15 mg Given 1213 15 mg Given insulin glargine (Lantus) injection 12 Units (Units) Total dose: 48 Units Dosing weight: 87.1 Date/Time Rate/Dose/Volume Action 06/17/23 0854 12 Units Given 06/18/23 1123 12 Units Given 06/19/23 1205 12 Units Given 06/20/23 0842 12 Units Given sennosides-docusate sodium (Bobbi-Colace) 8.6-50 mg per tablet 2 tablet (tablet) Total dose: 4 tablet* Dosing weight: 87.1 *Administration not included in total Date/Time Rate/Dose/Volume Action 06/17/23 0930 *2 tablet Missed 2233 2 tablet Given 06/18/23 0856 2 tablet Given 2100 *2 tablet Missed 06/19/23 0900 *2 tablet Missed 2100 *2 tablet Missed 06/20/23 0900 *2 tablet Missed polyethylene glycol (Glycolax, Miralax) packet 17 g (g) Total dose: 34 g* Dosing weight: 87.1 *Administration not included in total Date/Time Rate/Dose/Volume Action 06/17/23 0930 *17 g Missed 1500 *17 g Missed 2233 17 g Given 06/18/23 0856 17 g Given 1500 *17 g Missed 2100 *17 g Missed 06/19/23 0900 *17 g Missed 1500 *17 g Missed 2100 *17 g Missed 06/20/23 0900 *17 g Missed FLUoxetine (PROzac) capsule 20 mg (mg) Total dose: 40 mg* *Administration not included in total Date/Time Rate/Dose/Volume Action 06/17/23 1213 *Not included in total Held by provider 1230 *20 mg Missed 1717 *Not included in total Unheld by provider 06/18/23 1119 20 mg Given 06/19/23 1202 20 mg Given ARIPiprazole (Abilify) tablet 5 mg (mg) Total dose: 10 mg* Dosing weight: 87.1 *Administration not included in total Date/Time Rate/Dose/Volume Action 06/17/23 1213 *Not included in total Held by provider 1230 *5 mg Missed 1717 *Not included in total Unheld by provider 06/18/23 1118 5 mg Given 06/19/23 1202 5 mg Given loratadine (Claritin) tablet 10 mg (mg) Total dose: 20 mg* Dosing weight: 87.1 *Administration not included in total Date/Time Rate/Dose/Volume Action 06/17/23 1213 *Not included in total Held by provider 1230 *10 mg Missed 1717 *Not included in total Unheld by provider 06/18/23 1119 10 mg Given 06/19/23 1202 10 mg Given minoxidil (Loniten) tablet 1.25 mg (mg) Total dose: 2.5 mg* *Administration not included in total Date/Time Rate/Dose/Volume Action 06/17/23 1213 *Not included in total Held by provider 1230 *1.25 mg Missed 1717 *Not included in total Unheld by provider 06/18/23 1118 1.25 mg Given 06/19/23 1202 1.25 mg Given topiramate (Topamax) tablet 100 mg (mg) Total dose: 200 mg* *Administration not included in total Date/Time Rate/Dose/Volume Action 06/17/23 1213 *Not included in total Held by provider 1230 *100 mg Missed 1717 *Not included in total Unheld by provider 2233 100 mg Given 06/18/23 1119 100 mg Given topiramate (Topamax) tablet 50 mg (mg) Total dose: 100 mg* *Administration not included in total Date/Time Rate/Dose/Volume Action 06/18/23 2100 *50 mg Missed 06/19/23 1202 50 mg Given 2020 50 mg Given dicyclomine (Bentyl) capsule 10 mg (mg) Total dose: 40 mg Dosing weight: 87.1 Date/Time Rate/Dose/Volume Action 06/17/23 1739 10 mg Given 06/18/23 0626 10 mg Given 1999 10 mg Given 06/19/23 1202 10 mg Given pantoprazole (ProtoNix) EC tablet 40 mg (mg) Total dose: 40 mg* Dosing weight: 87.1 *Administration not included in total Date/Time Rate/Dose/Volume Action 06/18/23 0626 40 mg Given 06/19/23 0700 *40 mg Missed 06/20/23 0700 *40 mg Missed prochlorperazine (Compazine) injection 10 mg (mg) Total dose: 30 mg Dosing weight: 87.1 Date/Time Rate/Dose/Volume Action 06/17/23 2227 10 mg Given 06/18/23 1328 10 mg Given 06/19/23 1319 10 mg Given bisacodyl (Dulcolax) suppository 10 mg (mg) Total dose: 10 mg* Dosing weight: 85.3 *Administration not included in total Date/Time Rate/Dose/Volume Action 06/18/23 1124 10 mg Given 06/19/23 0900 *10 mg Missed 06/20/23 0900 *10 mg Missed morphine injection 1 mg (mg) Total dose: 1 mg Dosing weight: 85.3 Date/Time Rate/Dose/Volume Action 06/18/23 1328 1 mg Given morphine injection 2 mg (mg) Total dose: 2 mg Dosing weight: 85.3 Date/Time Rate/Dose/Volume Action 06/19/23 0153 2 mg Given morphine injection 2 mg (mg) Total dose: 6 mg Dosing weight: 85.3 Date/Time Rate/Dose/Volume Action 06/19/23 0436 2 mg Given 1558 2 mg Given 2020 2 mg Given sodium chloride 0.9 % bolus 1,000 mL (mL/hr) Total volume: 1,000 mL* Dosing weight: 85.3 *From user-documented volume Date/Time Rate/Dose/Volume Action 06/19/23 0041 1,000 mL - 1,000 mL/hr (over 60 min) New Bag 0141 1,000 mL Stopped lactated Ringer's infusion (mL/hr) Total volume: 1,818.25 mL* Dosing weight: 85.3 *From user-documented volume Date/Time Rate/Dose/Volume Action 06/19/23 0152 85 mL/hr New Bag 0544 85 mL/hr - 328.67 mL Rate Verify 1019 389.58 mL 1040 100 mL 1700 Stopped 1800 1,000 mL lactated Ringer's infusion (mL/hr) Total volume: 300 mL* Dosing weight: 82.1 *From user-documented volume Date/Time Rate/Dose/Volume Action 06/19/23 1800 300 mL 06/20/23 0227 100 mL/hr New Bag simethicone (Mylicon) drops (mg) Total dose: 300 mg Date/Time Rate/Dose/Volume Action 06/19/23 0944 300 mg Given lidocaine PF (Xylocaine) 10 mg/mL (1 %) injection (mL) Total volume: 10 mL Date/Time Rate/Dose/Volume Action 06/20/23 1045 10 mL Given oxyCODONE (Roxicodone) immediate release tablet 5 mg (mg) Total dose: Cannot be calculated* Dosing weight: 82.1 *Administration dose not documented Date/Time Rate/Dose/Volume Action 06/20/23 Canceled Entry HYDROmorphone (Dilaudid) injection 0.5 mg (mg) Total dose: 1.5 mg Dosing weight: 82.1 Date/Time Rate/Dose/Volume Action 06/19/23 1034 0.5 mg Given 1050 0.5 mg Given 06/20/23 0053 0.5 mg Given fentaNYL PF (Sublimaze) injection (mcg) Total dose: 50 mcg Date/Time Rate/Dose/Volume Action 06/20/23 1044 50 mcg Given midazolam (Versed) injection (mg) Total dose: 2 mg Date/Time Rate/Dose/Volume Action 06/20/23 1044 2 mg Given See detailed result report with images in PACS. The patient tolerated the procedure well without incident or complication and is in stable condition. [facility] Work Phone: 1(468) 417-174303-01-2024 Note* Pre-Procedure Note - Augie Archibald MD - 06/20/2023 10:41 AM EST Interventional Radiology Preprocedure Note Indication for procedure: The encounter diagnosis was RUQ abdominal pain. Elevated LFT's, evidence of portal HTN on EGD. Presenting for random liver biopsy. Relevant review of systems: NA Relevant Labs: Lab Results Component Value Date CREATININE 0.81 06/20/2023 EGFR >90 06/20/2023 INR 1.2 (H) 06/19/2023 PROTIME 13.4 (H) 06/19/2023 Planned Sedation/Anesthesia: Moderate Airway assessment: normal Directed physical examination: Awake and alert, oriented No acute distress Regular rate, rhythm Breathing non-labored Mallampati: I (soft palate, uvula, fauces, and tonsillar pillars visible) ASA Score: ASA 3 - Patient with moderate systemic disease with functional limitations Benefits, risks and alternatives of procedure and planned sedation have been discussed with the patient and/or their artist's representative. All questions answered and they agree to proceed. [facility] Work Phone: 1(137) 222-338202-29-2024 Plan of care note* Care Plan - Dalila Cortes RN - 06/19/2023 9:54 PM EST The patient's goals for the shift include maintaining systolic BP above 100 and blood sugars below 200 The clinical goals for the shift include completed NPO at midnight for IR to biopsy liver [facility]02-29-2024 Plan of care note* Care Plan - BENJAMIN Santos - 06/19/2023 12:43 PM EST Patient underwent EGD with Dr. Krause today noting gastritis, mild mosaic portal hypertensive gastropathy in the stomach. Normal duodenum. Plan: - continue supportive care - wean narcotics d/t nausea - continue bowel regimen - continue to trend liver enzymes daily - await pathology - IR for liver biopsy given portal HTN on EGD Plan has been discussed with Dr. Campbell. GI will continue to follow. Porfirio Norton APRN/CORINA [facility] Work Phone: 1(335) 936-847902-29-2024 Plan of care note* Care Plan - Emy Kohli RN - 06/19/2023 12:25 PM EST Problem: Skin Goal: Decreased wound size/increased tissue granulation at next dressing change Flowsheets (Taken 06/19/2023 1223) Decreased wound size/increased tissue granulation at next dressing change: Protective dressings over bony prominences Goal: Participates in plan/prevention/treatment measures Flowsheets (Taken 06/19/2023 1223) Participates in plan/prevention/treatment measures: Elevate heels Discuss with provider PT/OT consult Increase activity/out of bed for meals Goal: Prevent/manage excess moisture Flowsheets (Taken 06/19/2023 1223) Prevent/manage excess moisture: Moisturize dry skin Monitor for/manage infection if present Goal: Prevent/minimize sheer/friction injuries Flowsheets (Taken 06/19/2023 1223) Prevent/minimize sheer/friction injuries: Increase activity/out of bed for meals Goal: Promote/optimize nutrition Flowsheets (Taken 06/19/2023 1224) Promote/optimize nutrition: Assist with feeding Goal: Promote skin healing Flowsheets (Taken 06/19/2023 1224) Promote skin healing: Protective dressings over bony prominences Assess skin/pad under line(s)/device(s) The patient's goals for the shift include The clinical goals for the shift include completed [facility]02-28-2024 Plan of care note* Care Plan - Dalila Cortes RN - 06/18/2023 7:50 PM EST The patient's goals for the shift include decreased abd pain The clinical goals for the shift include remain afebrile Patient has been incontinent of loose stools from laxatives. 9pm laxatives held. Npo at midnight for EGD tomorrow. [facility] Work Phone: [phone] 683-302702-28-2024 Plan of care note* Care Plan - Lior Ledesma RN - 06/18/2023 9:25 AM EST The patient's goals for the shift include remain fall free The clinical goals for the shift include remain afebrile [facility]02-28-2024 Plan of care note* Care Plan - Sushila Quispe RN - 06/18/2023 5:30 AM EST The patient's goals for the shift include Problem: Pain Goal: My pain/discomfort is manageable 06/18/2023 043 by Sushila Quispe RN Outcome: Progressing 06/18/2023 0433 by Sushila Quispe RN Outcome: Progressing Problem: Safety Goal: Patient will be injury free during hospitalization 06/18/2023 043 by Sushila Quispe RN Outcome: Progressing 06/18/2023 0433 by Sushila Quispe RN Outcome: Progressing Goal: I will remain free of falls 06/18/2023433 by Sushila Quispe RN Outcome: Progressing 06/18/2023 0433 by Sushila Quispe RN Outcome: Progressing Problem: Daily Care Goal: Daily care needs are met 06/18/2023 0434 by Sushila Quispe RN Outcome: Progressing 06/18/2023 043 by Sushila Quispe RN Outcome: Progressing Problem: Psychosocial Needs Goal: Demonstrates ability to cope with hospitalization/illness 06/18/2023 0434 by Sushila Quispe RN Outcome: Progressing 06/18/2023 0433 by Sushila Quispe RN Outcome: Progressing Goal: Collaborate with me, my family, and caregiver to identify my specific goals 06/18/2023 0434 by Sushila Quispe RN Outcome: Progressing 06/18/2023 043 by Sushila Quispe RN Outcome: Progressing Problem: Discharge Barriers Goal: My discharge needs are met 06/18/2023 043 by Sushila Quispe RN Outcome: Progressing 06/18/2023 043 by Sushila Quispe RN Outcome: Progressing Problem: Skin Goal: Decreased wound size/increased tissue granulation at next dressing change 06/18/2023 0434 by Sushila Quispe RN Outcome: Progressing 06/18/2023 0433 by Sushila Quispe RN Outcome: Progressing Goal: Participates in plan/prevention/treatment measures 06/18/2023 043 by Sushila Quispe RN Outcome: Progressing 06/18/2023 043 by Sushila Quispe RN Outcome: Progressing Goal: Prevent/manage excess moisture 06/18/2023 043 by Sushila Quispe RN Outcome: Progressing 06/18/2023 043 by Sushila Quispe RN Outcome: Progressing Goal: Prevent/minimize sheer/friction injuries 06/18/2023 0434 by Sushila Quispe RN Outcome: Progressing 06/18/2023 0433 by Sushila Quispe RN Outcome: Progressing Goal: Promote/optimize nutrition 06/18/2023 043 by Sushila Quispe RN Outcome: Progressing 06/18/2023 043 by Sushila Quispe RN Outcome: Progressing Goal: Promote skin healing 06/18/2023 0434 by Sushila Quispe RN Outcome: Progressing 06/18/2023 0433 by Sushila Quispe RN Outcome: Progressing Problem: Fall/Injury Goal: Not fall by end of shift 06/18/2023 0434 by Sushila Quispe RN Outcome: Progressing 06/18/2023 043 by Sushila Quispe RN Outcome: Progressing Goal: Be free from injury by end of the shift 06/18/2023433 by Sushila Quispe RN Outcome: Progressing 06/18/2023432 by Sushila Quispe RN Outcome: Progressing Goal: Verbalize understanding of personal risk factors for fall in the hospital 06/18/2023433 by Sushila Quispe RN Outcome: Progressing 06/18/2023432 by Sushila Quispe RN Outcome: Progressing Goal: Verbalize understanding of risk factor reduction measures to prevent injury from fall in the home 06/18/2023433 by Sushila Quispe RN Outcome: Progressing 06/18/2023432 by Sushila Quispe RN Outcome: Progressing Goal: Use assistive devices by end of the shift 06/18/2023433 by Sushila Quispe RN Outcome: Progressing 06/18/2023432 by Sushila Quispe RN Outcome: Progressing Goal: Pace activities to prevent fatigue by end of the shift 06/18/2023433 by Sushila Quispe RN Outcome: Progressing 06/18/2023432 by Sushila Quispe RN Outcome: Progressing Problem: Pain Goal: Takes deep breaths with improved pain control throughout the shift 06/18/2023433 by Sushila Quispe RN Outcome: Progressing 06/18/2023432 by Sushila Quispe RN Outcome: Progressing Goal: Turns in bed with improved pain control throughout the shift 06/18/2023433 by Sushila Quispe RN Outcome: Progressing 06/18/2023432 by Sushila Quispe RN Outcome: Progressing Goal: Walks with improved pain control throughout the shift 06/18/2023433 by Sushila Quispe RN Outcome: Progressing 06/18/2023432 by Sushila Quispe RN Outcome: Progressing Goal: Performs ADL's with improved pain control throughout shift 06/18/2023433 by Sushila Quispe RN Outcome: Progressing 06/18/2023432 by Sushila Quispe RN Outcome: Progressing Goal: Participates in PT with improved pain control throughout the shift 06/18/2023433 by Sushila Quispe RN Outcome: Progressing 06/18/2023432 by Sushila Quispe RN Outcome: Progressing Goal: Free from opioid side effects throughout the shift 06/18/2023 043 by Sushila Quispe RN Outcome: Progressing 06/18/2023 043 by Sushila Quispe RN Outcome: Progressing Goal: Free from acute confusion related to pain meds throughout the shift 06/18/2023 043 by Sushila Quispe RN Outcome: Progressing 06/18/2023 043 by Sushila Quispe RN Outcome: Progressing Problem: Respiratory Goal: Clear secretions with interventions this shift 06/18/2023 043 by Sushila Quispe RN Outcome: Progressing 06/18/2023 043 by Sushila Quispe RN Outcome: Progressing Goal: Minimize anxiety/maximize coping throughout shift 06/18/2023 043 by Sushila Quispe RN Outcome: Progressing 06/18/2023 043 by Sushila Quispe RN Outcome: Progressing Goal: Minimal/no exertional discomfort or dyspnea this shift 06/18/2023 043 by Sushila Quispe RN Outcome: Progressing 06/18/2023 043 by Sushila Quispe RN Outcome: Progressing Goal: No signs of respiratory distress (eg. Use of accessory muscles. Peds grunting) 06/18/2023 043 by Sushila Quispe RN Outcome: Progressing 06/18/2023432 by Sushila Quispe RN Outcome: Progressing Goal: Patent airway maintained this shift 06/18/2023 043 by Sushila Quispe RN Outcome: Progressing 06/18/2023432 by Sushila Quispe RN Outcome: Progressing Goal: Tolerate mechanical ventilation evidenced by VS/agitation level this shift 06/18/2023 043 by Sushila Quispe RN Outcome: Progressing 06/18/2023 043 by Sushila Quispe RN Outcome: Progressing Goal: Tolerate pulmonary toileting this shift 06/18/2023 043 by Sushila Quispe RN Outcome: Progressing 06/18/2023432 by Sushila Quispe RN Outcome: Progressing Goal: Verbalize decreased shortness of breath this shift 06/18/2023 043 by Sushila Quispe RN Outcome: Progressing 06/18/2023432 by Sushila Quispe RN Outcome: Progressing Goal: Wean oxygen to maintain O2 saturation per order/standard this shift 06/18/2023433 by Sushila Quispe RN Outcome: Progressing 06/18/2023432 by Sushila Quispe RN Outcome: Progressing Goal: Increase self care and/or family involvement in next 24 hours 06/18/2023433 by Sushila Quispe RN Outcome: Progressing 06/18/2023432 by Sushila Quispe RN Outcome: Progressing Problem: Diabetes Goal: Achieve decreasing blood glucose levels by end of shift Outcome: Progressing Goal: Increase stability of blood glucose readings by end of shift Outcome: Progressing Goal: Maintain glucose levels >70mg/dl to <250mg/dl throughout shift Outcome: Progressing Goal: No changes in neurological exam by end of shift Outcome: Progressing Goal: Vital signs within normal range for age by end of shift Outcome: Progressing Goal: Increase self care and/or family involovement by end of shift Outcome: Progressing The clinical goals for the shift include labs/vital signs stable, nausea controlled, and patient safety maintained Over the shift, the patient did make progress toward the following goals. Patient labs and vital signs stable. Patient's nausea controlled with PRN antiemetics. Patient given education regarding diabetes. Patient safety maintained. [facility]02-27-2024 Plan of care note* Care Plan - Chiquita Kunz RN - 06/17/2023 12:36 PM EST The patient's goals for the shift include The clinical goals for the shift include safety, patient education on diabetes Problem: Pain Goal: My pain/discomfort is manageable Outcome: Progressing Problem: Safety Goal: Patient will be injury free during hospitalization Outcome: Progressing Goal: I will remain free of falls Outcome: Progressing Problem: Daily Care Goal: Daily care needs are met Outcome: Progressing Problem: Psychosocial Needs Goal: Demonstrates ability to cope with hospitalization/illness Outcome: Progressing Goal: Collaborate with me, my family, and caregiver to identify my specific goals Outcome: Progressing Problem: Discharge Barriers Goal: My discharge needs are met Outcome: Progressing Problem: Skin Goal: Decreased wound size/increased tissue granulation at next dressing change Outcome: Progressing Goal: Participates in plan/prevention/treatment measures Outcome: Progressing Goal: Prevent/manage excess moisture Outcome: Progressing Goal: Prevent/minimize sheer/friction injuries Outcome: Progressing Goal: Promote/optimize nutrition Outcome: Progressing Goal: Promote skin healing Outcome: Progressing Problem: Fall/Injury Goal: Not fall by end of shift Outcome: Progressing Goal: Be free from injury by end of the shift Outcome: Progressing Goal: Verbalize understanding of personal risk factors for fall in the hospital Outcome: Progressing Goal: Verbalize understanding of risk factor reduction measures to prevent injury from fall in the home Outcome: Progressing Goal: Use assistive devices by end of the shift Outcome: Progressing Goal: Pace activities to prevent fatigue by end of the shift Outcome: Progressing Problem: Pain Goal: Takes deep breaths with improved pain control throughout the shift Outcome: Progressing Goal: Turns in bed with improved pain control throughout the shift Outcome: Progressing Goal: Walks with improved pain control throughout the shift Outcome: Progressing Goal: Performs ADL's with improved pain control throughout shift Outcome: Progressing Goal: Participates in PT with improved pain control throughout the shift Outcome: Progressing Goal: Free from opioid side effects throughout the shift Outcome: Progressing Goal: Free from acute confusion related to pain meds throughout the shift Outcome: Progressing Problem: Respiratory Goal: Clear secretions with interventions this shift Outcome: Progressing Goal: Minimize anxiety/maximize coping throughout shift Outcome: Progressing Goal: Minimal/no exertional discomfort or dyspnea this shift Outcome: Progressing Goal: No signs of respiratory distress (eg. Use of accessory muscles. Peds grunting) Outcome: Progressing Goal: Patent airway maintained this shift Outcome: Progressing Goal: Tolerate mechanical ventilation evidenced by VS/agitation level this shift Outcome: Progressing Goal: Tolerate pulmonary toileting this shift Outcome: Progressing Goal: Verbalize decreased shortness of breath this shift Outcome: Progressing Goal: Wean oxygen to maintain O2 saturation per order/standard this shift Outcome: Progressing Goal: Increase self care and/or family involvement in next 24 hours Outcome: Progressing [facility]02-27-2024 Consult note* Porfirio Norton APRN- [place] - 06/17/2023 9:04 AM ESTAssociated Order(s): IP CONSULT TO GASTROENTEROLOGY Reason for consult transaminitis HPI Anahi Dwyer is a 37 y.o. female presenting with RUQ pain, nausea. PMH significant for IBS, obstructive cholelithiasis s/p cholecystectomy, diarrhea secondary to malabsorption, recent norovirus. Patient presented from home noting RUQ discomfort that worsened with sitting upright, walking, movement.Pain has been going on for months though has gotten worse over the past few days. She was unable tosleep 3 nights ago and pain became more continuous. She had nausea without vomiting. Nausea has been going on for about 1 month. It is similar to morning sickness. She had not been taking anything for pain or nausea at home. She has been tolerating food. Pain and nausea do not seem to be related tofluid intake. She was able to eat scrambled eggs for breakfast yesterday. She has been having diarrhea, 1-2 episodes daily that has been treated by her GI in [place] with improvement. No chest pain or shortness of breath. She follows with [facility]Dr. Titi Quezada. She has had frequent communications with their office. She was most recently seen for follow-up with diarrhea, abdominal pain 06/12/2023 with transaminitis noted with full workup ordered. Workup NTD. She also had previous transaminitis back in 2020. Plan for possible outpatient FibroScan. Current liver enzymes noting alk phos 195, ALT 214, AST 267. Bilirubin WNL. Alk phos and ALT downtrending from yesterday with elevation in AST today from 159 yesterday. Ferritin 943. Remaining iron studies WNL. Patient is afebrile, HDS on RA. PMH She has a past medical history of Calculus of bile duct with obstruction (06/17/2023), Depression (5-16-21), Dizziness and giddiness (04/02/2023), JUANA (generalized anxiety disorder) (05/19/2023), Irritable bowel syndrome (4-20-19), Migraines, Near syncope (02/16/2023), Other specified health status, Placenta previa antepartum in second trimester (02/25/2020), PTSD (post-traumatic stress disorder)(05/19/2023), PVC's (premature ventricular contractions) (02/16/2023), Seborrheic dermatitis (06/17/2023), and Vitamin D deficiency (02/16/2023). PSH She has a past surgical history that includes section, low transverse (16 and 02-28-20) and Cholecystectomy. Family Family History Adopted: Yes Family history unknown: Yes Social She reports that she has never smoked. She has never used smokeless tobacco. She reports that she does not drink alcohol and does not use drugs. Review of Systems ROS negative unless stated otherwise in HPI Objective BP 114/61 (BP Location: Left arm, Patient Position: Lying) Pulse 65 Temp 36 C (96.8 F) (Temporal) Resp 17 Ht 1.549 m (5' 0.98) Wt 87.1 kg (191 lb 15.3 oz) LMP 06/02/2023 (Approximate) SpO2 98% BMI 36.29 kg/m Physical Exam Constitutional: Alert, pleasant and interactive, in NAD Eyes: PERRL, sclera clear, no conjunctival injection Skin: Warm and dry, no rash or ecchymosis ENMT: Mucous membranes moist, no lesions noted Resp: CTAB, even and unlabored CV: RRR, normal S1, S2, no m,r,g GI: +BS, soft, round, RUQ TTP, no rebound tenderness or guarding, no palpable masses or organomegaly MSK: 5/5 strength, ROM intact, no joint swelling Extremities: Extremities warm, no edema, contusions, wounds or cyanosis Neuro: Alert and oriented x3 Psych: Appropriate mood and behavior Medications Scheduled medications insulin glargine, 12 Units, subcutaneous, Daily insulin lispro, 0-10 Units, subcutaneous, q4h pantoprazole, 40 mg, intravenous, Daily Continuous medications sodium chloride 0.9%, 100 mL/hr, Last Rate: 100 mL/hr (06/17/23 0224) PRN medications PRN medications: dextrose, glucagon, melatonin, ondansetron, polyethylene glycol Labs Lab Results Component Value Date WBC 9.2 06/17/2023 HGB 12.2 06/17/2023 HCT 37.8 06/17/2023 MCV 89 06/17/2023 PLT 203 06/17/2023 Lab Results Component Value Date GLUCOSE 142 (H) 06/17/2023 CALCIUM 8.7 06/17/2023 NA 137 06/17/2023 K 3.6 06/17/2023 CO2 18 (L) 06/17/2023 CL 108 (H) 06/17/2023 BUN 14 06/17/2023 CREATININE 0.63 06/17/2023 Lab Results Component Value Date ALT 214 (H) 06/17/2023 AST 267 (H) 06/17/2023 ALKPHOS 195 (H) 06/17/2023 BILITOT 0.5 06/17/2023 Lab Results Component Value Date IRON 108 12/19/2021 TIBC 382 12/19/2021 FERRITIN 943 (H) 06/12/2023 Lab Results Component Value Date INR 1.1 02/03/2021 PROTIME 12.6 02/03/[address] A/P with IV contrast 06/16/2023 noting: Impression: 1. Hepatic steatosis. 2. Previous cholecystectomy. 3. Stool-filled colon. Signed by Terry Weems M.D. Assessment: Anahi Dwyer is a 37 y.o. female presenting with RUQ pain, nausea. PMH significant for obstructive cholelithiasis s/p cholecystectomy, recent norovirus, diarrhea. Patient follows with GI and [place]-Dr. Quezada who recently saw her for diarrhea improved with cholestyramine. Transaminitis with negative workup thus far. Plan for possible FibroScan. Liver enzymes also elevated in 2020. CT not noting any biliary abnormalities. Does note stool-filled colon. Hepatic steatosis. # transaminitis- could be multifactorial: Recent norovirus v hepatic steatosis- likely unrelated topain # abd pain- possibly r/t constipation, colonic spasms # stool filled colon # hepatic steatosis # recent norovirus Plan: - continue supportive care - clear liquids ok from GI standpoint - continue IVF's until able tolerate sufficient clears - miralax tid - continue analgesics and antiemetics as needed - continue to follow up remaining liver work up - can trial bentyl d/t concern for colonic spasms - pt will continue to follow up with her outpatient GI in [place] Plan has been discussed with Dr. Campbell. GI will continue to follow. Porfirio Norton APRN/CORINA [facility] Work Phone: 1(255) 895-188102-27-2024 History and physical note* Stephanie Hernandez MD - 06/17/2023 8:53 AM EST History Of Present Illness Anahi Dwyer is a 37 y.o. female presenting with 37-year-old female who presents to [facility]. She has a history of IBS JUANA and PTSD. Patient has been having issues with transaminitis. She has been having progressively increasing right upper quadrant pain. She was found to have a diffuse fatty liver with pathogens have been reviewed.. Past Medical History Past Medical History: Diagnosis Date Calculus of bile duct with obstruction 06/17/2023 Depression 09-03-20 Dizziness and giddiness 04/02/2023 JUANA (generalized anxiety disorder) 05/19/2023 Irritable bowel syndrome 08-08-18 Migraines Near syncope 02/16/2023 Other specified health status No pertinent past medical history Placenta previa antepartum in second trimester 02/25/2020 PTSD (post-traumatic stress disorder) 05/19/2023 PVC's (premature ventricular contractions) 02/16/2023 Seborrheic dermatitis 06/17/2023 Vitamin D deficiency 02/16/2023 Surgical History Past Surgical History: Procedure Laterality Date SECTION, LOW TRANSVERSE and 02-28-20 x2 CHOLECYSTECTOMY Social History She reports that she has never smoked. She has never used smokeless tobacco. She reports that she does not drink alcohol and does not use drugs. Family History Family History Adopted: Yes Family history unknown: Yes Allergies Hydrocodone-acetaminophen, Bee venom protein (honey bee), Hydrocodone, Lexapro [escitalopram oxalate], and Tramadol Review of Systems onstitutional: NEGATIVE: Fever, Chills, Malaise, Weight Loss, Fatigue Eyes: NEGATIVE: Blurry Vision, Vision Loss/ Change, Redness, Drainage ENMT: NEGATIVE: Nasal Discharge, Nasal Congestion, Throat Pain, Mouth Pain, Ear Pain Respiratory: NEGATIVE: Dry Cough, Productive Cough, Shortness of Breath, Wheezing, Hemoptysis Cardiac: NEGATIVE: Chest Pain, Dyspnea on Exertion, Palpitations, Orthopnea, Syncope Gastrointestinal: Negative: Nausea, Vomiting, Diarrhea, Constipation, Abdominal Pain Genitourinary: NEGATIVE: Dysuria, Frequency, Hematuria, Flank Pain Musculoskeletal: Negative: Decreased ROM, Pain, Weakness, Swelling Neurological: NEGATIVE: Confusion, Dizziness, Headache, Syncope, Seizures Psychiatric: NEGATIVE: Anxiety, Depression Skin: NEGATIVE: Mass, Rash, Pruritus, Ulcer, Pain Endocrine: NEGATIVE: Sweat, Thirst, Polydipsia Hematologic/Lymph: NEGATIVE: Anemia, Bruising, Night Sweats Allergic/Immunologic: NEGATIVE: Itching, Sneezing Physical Exam Constitutional: Awake and alert, Calm, and Cooperative. Speech clear. No acute distress. Skin: Boley, warm, and dry. No lesions or rashes. Eyes: PERRL, sclera clear, No swelling or drainage noted ENMT: Mucous membranes pink and moist, no apparent injury, no lesions seen Head/Neck: Neck Supple, no apparent injury, trachea midline, no palpable masses on head Cardiac: Regular rhythm and rate, Auscultated S1 & S2, no murmurs Lungs: CTAB, symmetrical chest rise, no accessory muscle usage, unlabored Abdomen: Soft, tender to palpation in RUQ, nondistended, positive bowel sounds in all quadrants Musculoskeletal: ROM intact, no joint swelling, normal strength Extremities: No edema, No cyanosis, 2+ pulses of the extremities, see skin assessment for wounds Neurological: Alert and Oriented x 3, intact senses, bilateral hand grasps and foot push/pulls equal. Psychological: Appropriate mood and behavior. Last Recorded Vitals Blood pressure 114/61, pulse 65, temperature 36 C (96.8 F), temperature source Temporal, resp. rate17, height 1.549 m (5' 0.98), weight 87.1 kg (191 lb 15.3 oz), last menstrual period 06/02/2023, SpO2 98 %. Relevant Results Assessment/Plan Principal Problem: Transaminitis Active Problems: RUQ abdominal pain New onset type 2 diabetes mellitus (CMS/HCC) Hyperglycemia Hepatic steatosis GI and Endo evaluation IV fluids N.p.o. Hypoglycemic protocol N.p.o. except for sips of water Monitor lab work SCDs for DVT prophylaxis I spent 40 minutes in the professional and overall care of this patient. Stephanie Hernandez MD [facility] Work Phone: [phone] History and physical note* Stephanie Hernandez MD - 06/17/2023 8:53 AM EST History Of Present Illness Anahi Dwyer is a 37 y.o. female presenting with 37-year-old female who presents to [facility]. She has a history of IBS JUANA and PTSD. Patient has been having issues with transaminitis. She has been having progressively increasing right upper quadrant pain. She was found to have a diffuse fatty liver with pathogens have been reviewed.. Past Medical History Past Medical History: Diagnosis Date Calculus of bile duct with obstruction 06/17/2023 Depression 16 Dizziness and giddiness 04/02/2023 JUANA (generalized anxiety disorder) 05/19/2023 Irritable bowel syndrome 2019 Migraines Near syncope 02/16/2023 Other specified health status No pertinent past medical history Placenta previa antepartum in second trimester 02/25/2020 PTSD (post-traumatic stress disorder) 05/19/2023 PVC's (premature ventricular contractions) 02/16/2023 Seborrheic dermatitis 06/17/2023 Vitamin D deficiency 02/16/2023 Surgical History Past Surgical History: Procedure Laterality Date SECTION, LOW TRANSVERSE and 02-28-20 x2 CHOLECYSTECTOMY Social History She reports that she has never smoked. She has never used smokeless tobacco. She reports that she does not drink alcohol and does not use drugs. Family History Family History Adopted: Yes Family history unknown: Yes Allergies Hydrocodone-acetaminophen, Bee venom protein (honey bee), Hydrocodone, Lexapro [escitalopram oxalate], and Tramadol Review of Systems onstitutional: NEGATIVE: Fever, Chills, Malaise, Weight Loss, Fatigue Eyes: NEGATIVE: Blurry Vision, Vision Loss/ Change, Redness, Drainage ENMT: NEGATIVE: Nasal Discharge, Nasal Congestion, Throat Pain, Mouth Pain, Ear Pain Respiratory: NEGATIVE: Dry Cough, Productive Cough, Shortness of Breath, Wheezing, Hemoptysis Cardiac: NEGATIVE: Chest Pain, Dyspnea on Exertion, Palpitations, Orthopnea, Syncope Gastrointestinal: Negative: Nausea, Vomiting, Diarrhea, Constipation, Abdominal Pain Genitourinary: NEGATIVE: Dysuria, Frequency, Hematuria, Flank Pain Musculoskeletal: Negative: Decreased ROM, Pain, Weakness, Swelling Neurological: NEGATIVE: Confusion, Dizziness, Headache, Syncope, Seizures Psychiatric: NEGATIVE: Anxiety, Depression Skin: NEGATIVE: Mass, Rash, Pruritus, Ulcer, Pain Endocrine: NEGATIVE: Sweat, Thirst, Polydipsia Hematologic/Lymph: NEGATIVE: Anemia, Bruising, Night Sweats Allergic/Immunologic: NEGATIVE: Itching, Sneezing Physical Exam Constitutional: Awake and alert, Calm, and Cooperative. Speech clear. No acute distress. Skin: Boley, warm, and dry. No lesions or rashes. Eyes: PERRL, sclera clear, No swelling or drainage noted ENMT: Mucous membranes pink and moist, no apparent injury, no lesions seen Head/Neck: Neck Supple, no apparent injury, trachea midline, no palpable masses on head Cardiac: Regular rhythm and rate, Auscultated S1 & S2, no murmurs Lungs: CTAB, symmetrical chest rise, no accessory muscle usage, unlabored Abdomen: Soft, tender to palpation in RUQ, nondistended, positive bowel sounds in all quadrants Musculoskeletal: ROM intact, no joint swelling, normal strength Extremities: No edema, No cyanosis, 2+ pulses of the extremities, see skin assessment for wounds Neurological: Alert and Oriented x 3, intact senses, bilateral hand grasps and foot push/pulls equal. Psychological: Appropriate mood and behavior. Last Recorded Vitals Blood pressure 114/61, pulse 65, temperature 36 C (96.8 F), temperature source Temporal, resp. rate17, height 1.549 m (5' 0.98), weight 87.1 kg (191 lb 15.3 oz), last menstrual period 06/02/2023, SpO2 98 %. Relevant Results Assessment/Plan Principal Problem: Transaminitis Active Problems: RUQ abdominal pain New onset type 2 diabetes mellitus (CMS/HCC) Hyperglycemia Hepatic steatosis GI and Endo evaluation IV fluids N.p.o. Hypoglycemic protocol N.p.o. except for sips of water Monitor lab work SCDs for DVT prophylaxis I spent 40 minutes in the professional and overall care of this patient. Stephanie Hernandez MD * Marjorie Wharton APRN-RED CROSS WORKER - 06/17/2023 2:26 AM EST History Of Present Illness Anahi Dwyer is a 37 y.o. female presenting to [facility] on 06/16/2023 with pertinent medical history of IBS, JUANA, PTSD, PVC, calculus of bile duct with obstruction s/p cholecystectomy, and transaminitis who presents to the ED with increased right upper quadrant abdominal pain and nausea without vomitingfrom home. Patient reports that her RUQ maureen pain hurts when sitting up straight and walking. Denies any recent fever/chills, headache, dizziness, chest pain / palpitations, shortness of breath, cough, V/D/C, dysuria, or hematuria. In the ED, CBC unremarkable. CMP with glucose 421, sodium 131, bicarb 19, alkaline phosphatase 262,ALT 219, and AST 159 (06/02/2023 [facility] [place] 203, AST 108, and ALT 189). Lipase WNL at 57. Hemoglobin A1c 7.3. UA negative for UTI, glucose greater than 500. CT abdomen and pelvis shows hepatic steatosisand stool-filled colon. While in the ED patient received Toradol 15 mg IV, Toradol 30 mg IV, Zofran4 mg IV x 3, and normal saline x 2 L. Patient admitted for observation with transaminitis and new onset DM 2 with hyperglycemia with a consult to GI and endocrinology. Of note, 05/23/2023 abdominal ultrasound showed enlarged liver with diffuse fatty infiltration. 06/12/2023 acute hepatitis panel negative. 05/28/2023 stool pathogen positive for norovirus. 05/21/2023 TSH 2.32 and T4 15.3. 05/21/2023 vitamin D 13. 05/21/2023 cholesterol 233, triglycerides 159, HDL 48, LDL 153. 03/06/2022 echo with EF of 60%. Past Medical History She has a past medical history of Calculus of bile duct with obstruction (06/17/2023), Depression (5-16-21), Dizziness and giddiness (04/02/2023), JUANA (generalized anxiety disorder) (05/19/2023), Irritable bowel syndrome (4-20-19), Migraines, Near syncope (02/16/2023), Other specified health status, Placenta previa antepartum in second trimester (02/25/2020), PTSD (post-traumatic stress disorder)(05/19/2023), PVC's (premature ventricular contractions) (02/16/2023), Seborrheic dermatitis (06/17/2023), and Vitamin D deficiency (02/16/2023). Surgical History She has a past surgical history that includes section, low transverse ( and 02-28-20) and Cholecystectomy. Social History She reports that she has never smoked. She has never used smokeless tobacco. She reports that she does not drink alcohol and does not use drugs. Family History Family History Adopted: Yes Family history unknown: Yes Allergies Hydrocodone-acetaminophen, Bee venom protein (honey bee), Hydrocodone, Lexapro [escitalopram oxalate], and Tramadol Review of Systems (Bold words are positive) Constitutional: NEGATIVE: Fever, Chills, Malaise, Weight Loss, Fatigue Eyes: NEGATIVE: Blurry Vision, Vision Loss/ Change, Redness, Drainage ENMT: NEGATIVE: Nasal Discharge, Nasal Congestion, Throat Pain, Mouth Pain, Ear Pain Respiratory: NEGATIVE: Dry Cough, Productive Cough, Shortness of Breath, Wheezing, Hemoptysis Cardiac: NEGATIVE: Chest Pain, Dyspnea on Exertion, Palpitations, Orthopnea, Syncope Gastrointestinal: Negative: Nausea, Vomiting, Diarrhea, Constipation, Abdominal Pain Genitourinary: NEGATIVE: Dysuria, Frequency, Hematuria, Flank Pain Musculoskeletal: Negative: Decreased ROM, Pain, Weakness, Swelling Neurological: NEGATIVE: Confusion, Dizziness, Headache, Syncope, Seizures Psychiatric: NEGATIVE: Anxiety, Depression Skin: NEGATIVE: Mass, Rash, Pruritus, Ulcer, Pain Endocrine: NEGATIVE: Sweat, Thirst, Polydipsia Hematologic/Lymph: NEGATIVE: Anemia, Bruising, Night Sweats Allergic/Immunologic: NEGATIVE: Itching, Sneezing Physical Exam Constitutional: Awake and alert, Calm, and Cooperative. Speech clear. No acute distress. Skin: Boley, warm, and dry. No lesions or rashes. Eyes: PERRL, sclera clear, No swelling or drainage noted ENMT: Mucous membranes pink and moist, no apparent injury, no lesions seen Head/Neck: Neck Supple, no apparent injury, trachea midline, no palpable masses on head Cardiac: Regular rhythm and rate, Auscultated S1 & S2, no murmurs Lungs: CTAB, symmetrical chest rise, no accessory muscle usage, unlabored Abdomen: Soft, tender to palpation in RUQ, nondistended, positive bowel sounds in all quadrants Musculoskeletal: ROM intact, no joint swelling, normal strength Extremities: No edema, No cyanosis, 2+ pulses of the extremities, see skin assessment for wounds Neurological: Alert and Oriented x 3, intact senses, bilateral hand grasps and foot push/pulls equal. Psychological: Appropriate mood and behavior. Last Recorded Vitals Blood pressure 115/62, pulse 67, temperature 36.2 C (97.2 F), resp. rate 16, height 1.549 m (5' 0.98), weight 87.1 kg (191 lb 15.3 oz), last menstrual period 06/02/2023, SpO2 97 %. Visit Vitals BP 115/62 (BP Location: Left arm) Pulse 67 Temp 36.2 C (97.2 F) Resp 16 Ht 1.549 m (5' 0.98) Wt 87.1 kg (191 lb 15.3 oz) LMP 06/02/2023 (Approximate) SpO2 97% BMI 36.29 kg/m OB Status Having periods Smoking Status Never BSA 1.94 m Weight: 87.1 kg (191 lb 15.3 oz) Pain Assessment: 0-10 Pain Score: 0 - No pain Pain Type: Acute pain Pain Location: Abdomen Pain Orientation: Right; Upper Pain Descriptors: Radiating; Pressure Pain Frequency: Constant/continuous Relevant Results Results for orders placed or performed during the hospital encounter of 06/17/23 (from the past 24 hour(s)) POCT GLUCOSE Result Value Ref Range POCT Glucose 172 (H) 74 - 99 mg/dL CT abdomen pelvis w IV contrast Result Date: 06/16/2023 STUDY: CT Abdomen and Pelvis with IV Contrast; 06/16/2023 7:25 PM. INDICATION: Elevated liver function tests. Right upper quadrant abdominal pain. COMPARISON: CT AP 03/14/2023; US abd 05/23/2023. ACCESSION NUMBER(S): [id number] ORDERING CLINICIAN: DESMOND LAI TECHNIQUE: CT of the abdomen and pelviswas performed. Contiguous axial images were obtained at 3 mm slice thickness through the abdomen and pelvis. Coronal and sagittal reconstructions at 3 mm slice thickness were performed. Omnipaque [id number] mL was administered intravenously. FINDINGS: LOWER CHEST: No cardiomegaly. No pericardial effusion. Lung bases are clear. ABDOMEN: LIVER: No hepatomegaly. Smooth surface contour. There is hepatic s teatosis without focal liver lesion. BILE DUCTS: No intrahepatic or extrahepatic biliary ductal dilatation. GALLBLADDER: The gallbladder is surgically absent STOMACH: No abnormalities identified. PANCREAS: No masses or ductal dilatation. SPLEEN: No splenomegaly or focal splenic lesion. ADRENAL GLANDS: No thickening or nodules. KIDNEYS AND URETERS: Kidneys are normal in size and location. No renalor ureteral calculi. PELVIS: BLADDER: No abnormalities identified. REPRODUCTIVE ORGANS: The gynecological structures are unremarkable. BOWEL: Colon is stool-filled. Surgical clips are seen in the right lower quadrant in the absence of a visible appendix. Finding may appendectomy. VESSELS: No abnorma lities identified. Abdominal aorta is normal in caliber. PERITONEUM/RETROPERITONEUM/LYMPH NODES: Nofree fluid. No pneumoperitoneum. No lymphadenopathy. ABDOMINAL WALL: No abnormalities identified. SOFT TISSUES: No abnormalities identified. BONES: No acute fracture or aggressive osseous lesion. 1. Hepatic steatosis. 2. Previous cholecystectomy. 3. Stool-filled colon. Signed by Terry Weems M.D. EKG: Normal sinus rhythm, ventricular rate 76, MT 142, QRS 80, QTc 409. No ST elevation or depression noted. Medications Scheduled medications insulin lispro, 0-10 Units, subcutaneous, q4h ketorolac, 15 mg, intravenous, Once pantoprazole, 40 mg, intravenous, Daily Continuous medications sodium chloride 0.9%, 100 mL/hr, Last Rate: 100 mL/hr (06/17/23 022) PRN medications PRN medications: dextrose, glucagon, melatonin, ondansetron, polyethylene glycol Assessment/Plan Principal Problem: Transaminitis Active Problems: RUQ abdominal pain New onset type 2 diabetes mellitus (CMS/HCC) Hyperglycemia Hepatic steatosis Plan: Code Status: Full Code Consult: GI and endocrinology. ATB: None indicated at this time. IVFs: Normal saline at 100 MLS per hour x 12 hours. Meds: Protonix 40 mg IV daily, Toradol 15 mg IV x 1, Zofran 4 mg IV every 6 hours as needed for nausea/vomiting, lispro SS per Accu-Chek every 4 hours, hypoglycemic protocol, melatonin 3 milligrams p.o. daily as needed for insomnia, MiraLAX 17 gms p.o daily as needed for constipation. Avoid hepatic toxic medications. Monitor for hypo/hyperglycemia signs and symptoms. Diet: N.p.o except meds with sip of water. Telemetry monitoring. Vital signs with BP, HR, & RR Q 4 hours. Pulse ox Q 4 hours. Admission height and weight. Labs ordered: CBC, CMP, magnesium, phosphorus, ammonia level. Test ordered: Defer to attending and consults. Monitor / trend labs while inpatient. Replace electrolytes as needed. Aspiration precautions. Out of bed with assistance Fall precautions Call physician for temperature < 36.5 or >38.0 degrees celsius. Call physician for pulse <50 or >120. Call physician for respiratory rate <10 or >22. Call physician for systolic blood pressure <90 or >170. Call physician for diastolic blood pressure < 50 or >100. Call physician for pulse ox <92%. See orders for further plan of care ordered. VTE prophylaxis: BLE SCDs. Monitor for s/s of bleeding Medication reconciliation to be completed when nursing/pharmacy are able to verify patient's accurate home medications. Further evaluation and management per attending and consulting physicians. This note has been transcribed using [employer] voice recognition system and there is a possibility of unintentional typing misprints. Any information found to be copied from previous providers is done in the best interest of the patient to provide accurate, quality, and continuity of care. I spent 45 minutes in the professional and overall care of this patient. BENJAMIN Méndez [facility] [place] documented in this [facility] Work Phone: [phone] Consult note* Reynold Ruiz DO - 06/17/2023 6:51 AM ESTAssociated Order(s): IP CONSULT TO ENDOCRINOLOGY Endocrinology Initial Inpatient Consult Note PATIENT NAME: Anahi Dwyer DATE: 06/17/2023 CONSULTING PHYSICIAN: Dr. Hernandez REASON FOR CONSULT: Uncontrolled T2DM History of Presenting Illness 37y F w. PMHx of: # Irritable Bowel Syndrome # Prediabetes # Class III Obesity # MDD/JUANA Patient presented to [place] ER on 06/16 complaining of worsening abdominal pain. She states is most in the right upper quadrant. She states that this has been going on for many months, but for the last 2 days it has worsened. She reports that it can be 10 out of 10 in nature. She states it is sharp when it does occur. The patient reports that she is having the pain on our interview. She reports that she is been following with gastroenterology. He has done many testing but without much of an answer. In the ER, CMP was remarkable for hyponatremia 131, her glucose was found to be 421 mg/dL. CO2 was 19 with an anion gap of 15. Serum lipase was 57. CBC was without any acute process. Her hemoglobin A1c was found be 7.3%. Her urinalysis did show glycosuria but did not show any nitrite, leukocyte Estrace or pyuria. The patient underwent a CT of the abdomen and pelvis which showed steatosis as well as a previous cholecystectomy. Otherwise there was no acute process. She was constipated. In regards to diabetes, the patient states that she is adopted. She does not know her family history. She is told that she had prediabetes. The patient states that she has a lot of sugary beverages by means of regular soda. Does not drink diet pop. Has juice as well. Patient does not watch her carbohydrates. She states that she does not exercise. She does not check her sugars either. Review of Systems (Bold if Positive) General: Fevers, Chills, Weight Loss, or Night Sweats HEENT: Headaches or Blurry Vision Cardiovascular: CP, Palpitations, Diaphoresis, or Peripheral Edema Respiratory: Cough, Shortness of Breath, or Hemoptysis Gastrointestinal: N/V, Abdominal Pain, Constipation, Diarrhea, Melena, Hematochezia Genitourinary: Polyruia, Dysuria, Urgency Endo: Polydipsia, Heat/Cold Intolerance, Hair/Skin/Nail Changes Rheum: Joint Pain MSK: LBP, Muscle Pain Psych: Anxiety, Depression Physical Examination BP 115/62 (BP Location: Left arm) Pulse 67 Temp 36.2 C (97.2 F) Resp 16 Ht 1.549 m (5' 0.98) Wt 87.1 kg (191 lb 15.3 oz) LMP 06/02/2023 (Approximate) SpO2 97% BMI 36.29 kg/m General: No acute distress. A&Ox3. HEENT: PERRLA. EOMi. Exophthalmos Neck: No LAD. No acanthosis nigricans. Thyroid: 20 g. Bruit CV: Normal rate and rhythm. No murmurs or rubs auscultated. Resp: CTA b/l. No wheezing or crackles. Abdomen: Soft nondistended obese abdomen. Right upper quadrant pain. Negative Hoyt sign. Noted laparotomy scars. Extremities: Trace pedal edema b/l. Neuro: CN II-XII Grossly Intact. Tremor. Brisk Reflexes. Psych: Appropriate affect Skin: No apparent rashes Past Medical / Surgical / Family / Social History Past Medical History: Diagnosis Date Calculus of bile duct with obstruction 06/17/2023 Depression 5-16-21 Dizziness and giddiness 04/02/2023 JUANA (generalized anxiety disorder) 05/19/2023 Irritable bowel syndrome 20-19 Migraines Near syncope 02/16/2023 Other specified health status No pertinent past medical history Placenta previa antepartum in second trimester 02/25/2020 PTSD (post-traumatic stress disorder) 05/19/2023 PVC's (premature ventricular contractions) 02/16/2023 Seborrheic dermatitis 06/17/2023 Vitamin D deficiency 02/16/2023 Past Surgical History: Procedure Laterality Date SECTION, LOW TRANSVERSE and 02-28-20 x2 CHOLECYSTECTOMY Family History Adopted: Yes Family history unknown: Yes Social History Socioeconomic History Marital status: Spouse name: Not on file Number of children: Not on file Years of education: Not on file Highest education level: Not on file Occupational History Not on file Tobacco Use Smoking status: Never Smokeless tobacco: Never Vaping Use Vaping Use: Never used Substance and Sexual Activity Alcohol use: Never Drug use: Never Sexual activity: Yes Partners: Male Other Topics Concern Not on file Social History Narrative Not on file Social Determinants of Health Financial Resource Strain: Low Risk (06/17/2023) Overall Financial Resource Strain (CARDIA) Difficulty of Paying Living Expenses: Not very hard Food Insecurity: Not on file Transportation Needs: No Transportation Needs (06/17/2023) PRAPARE - Transportation Lack of Transportation (Medical): No Lack of Transportation (Non-Medical): No Physical Activity: Not on file Stress: Not on file Social Connections: Not on file Intimate Partner Violence: Not on file Housing Stability: Low Risk (06/17/2023) Housing Stability Vital Sign Unable to Pay for Housing in the Last Year: No Number of Places Lived in the Last Year: 1 Unstable Housing in the Last Year: No Medications & Allergies 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 Hemoglobin A1c (06/14): 7.3% Nutrition: NPO. New diagnosis. Her A1c is not bad, but she was able to mount a blood sugar of 400 on her CMP. The patient is symptomatic from her hyperglycemia. I will start her on basal insulin as well as sliding scale every 4 hours. I did explain to her that we can use oral therapies to help with this. I explained to her other therapies which have been shown to help with weight loss. Unfortunately her history of IBS may be prohibitive for her to use a GLP-1 receptor analog and/or metformin. -Start glargine 12 units this morning -Continue lispro sliding scale #2 every 4 hours -We will broach perhaps starting metformin once her abdominal pain improves. # MASLD: As seen on CT on admission. Explained that she needs to lose 5% of her body weight. She can benefit from a FibroScan as an outpatient. # HTN: Obtain urine albumin creatinine ratio given this is a new diagnosis of T2DM. #Dyslipidemia: Obtain lipids. # Class III Obesity: As above. Consider GLP-1 receptor analog and/or metformin. Reynold Ruiz DO Endocrinology, Diabetes, and Metabolism Available via [employer] Please excuse any typographical or unwanted errors within this documentation as voice recognition software was used to dictate this note. [facility] Work Phone: [phone] History and physical note* Marjorie Wharton APRN-RED CROSS WORKER - 06/17/2023 2:26 AM EST History Of Present Illness Anahi Dwyer is a 37 y.o. female presenting to [facility] on 06/16/2023 with pertinent medical history of IBS, JUANA, PTSD, PVC, calculus of bile duct with obstruction s/p cholecystectomy, and transaminitis who presents to the ED with increased right upper quadrant abdominal pain and nausea without vomitingfrom home. Patient reports that her RUQ maureen pain hurts when sitting up straight and walking. Denies any recent fever/chills, headache, dizziness, chest pain / palpitations, shortness of breath, cough, V/D/C, dysuria, or hematuria. In the ED, CBC unremarkable. CMP with glucose 421, sodium 131, bicarb 19, alkaline phosphatase 262,ALT 219, and AST 159 (06/02/2023 [facility] 203, AST 108, and ALT 189). Lipase WNL at 57. Hemoglobin A1c 7.3. UA negative for UTI, glucose greater than 500. CT abdomen and pelvis shows hepatic steatosisand stool-filled colon. While in the ED patient received Toradol 15 mg IV, Toradol 30 mg IV, Zofran4 mg IV x 3, and normal saline x 2 L. Patient admitted for observation with transaminitis and new onset DM 2 with hyperglycemia with a consult to GI and endocrinology. Of note, 05/23/2023 abdominal ultrasound showed enlarged liver with diffuse fatty infiltration. 06/12/2023 acute hepatitis panel negative. 05/28/2023 stool pathogen positive for norovirus. 05/21/2023 TSH 2.32 and T4 15.3. 05/21/2023 vitamin D 13. 05/21/2023 cholesterol 233, triglycerides 159, HDL 48, LDL 153. 03/06/2022 echo with EF of 60%. Past Medical History She has a past medical history of Calculus of bile duct with obstruction (06/17/2023), Depression (516-21), Dizziness and giddiness (04/02/2023), JUANA (generalized anxiety disorder) (05/19/2023), Irritable bowel syndrome (20-19), Migraines, Near syncope (02/16/2023), Other specified health status, Placenta previa antepartum in second trimester (02/25/2020), PTSD (post-traumatic stress disorder)(05/19/2023), PVC's (premature ventricular contractions) (02/16/2023), Seborrheic dermatitis (06/17/2023), and Vitamin D deficiency (02/16/2023). Surgical History She has a past surgical history that includes section, low transverse (16 and 02-28-20) and Cholecystectomy. Social History She reports that she has never smoked. She has never used smokeless tobacco. She reports that she does not drink alcohol and does not use drugs. Family History Family History Adopted: Yes Family history unknown: Yes Allergies Hydrocodone-acetaminophen, Bee venom protein (honey bee), Hydrocodone, Lexapro [escitalopram oxalate], and Tramadol Review of Systems (Bold words are positive) Constitutional: NEGATIVE: Fever, Chills, Malaise, Weight Loss, Fatigue Eyes: NEGATIVE: Blurry Vision, Vision Loss/ Change, Redness, Drainage ENMT: NEGATIVE: Nasal Discharge, Nasal Congestion, Throat Pain, Mouth Pain, Ear Pain Respiratory: NEGATIVE: Dry Cough, Productive Cough, Shortness of Breath, Wheezing, Hemoptysis Cardiac: NEGATIVE: Chest Pain, Dyspnea on Exertion, Palpitations, Orthopnea, Syncope Gastrointestinal: Negative: Nausea, Vomiting, Diarrhea, Constipation, Abdominal Pain Genitourinary: NEGATIVE: Dysuria, Frequency, Hematuria, Flank Pain Musculoskeletal: Negative: Decreased ROM, Pain, Weakness, Swelling Neurological: NEGATIVE: Confusion, Dizziness, Headache, Syncope, Seizures Psychiatric: NEGATIVE: Anxiety, Depression Skin: NEGATIVE: Mass, Rash, Pruritus, Ulcer, Pain Endocrine: NEGATIVE: Sweat, Thirst, Polydipsia Hematologic/Lymph: NEGATIVE: Anemia, Bruising, Night Sweats Allergic/Immunologic: NEGATIVE: Itching, Sneezing Physical Exam Constitutional: Awake and alert, Calm, and Cooperative. Speech clear. No acute distress. Skin: Boley, warm, and dry. No lesions or rashes. Eyes: PERRL, sclera clear, No swelling or drainage noted ENMT: Mucous membranes pink and moist, no apparent injury, no lesions seen Head/Neck: Neck Supple, no apparent injury, trachea midline, no palpable masses on head Cardiac: Regular rhythm and rate, Auscultated S1 & S2, no murmurs Lungs: CTAB, symmetrical chest rise, no accessory muscle usage, unlabored Abdomen: Soft, tender to palpation in RUQ, nondistended, positive bowel sounds in all quadrants Musculoskeletal: ROM intact, no joint swelling, normal strength Extremities: No edema, No cyanosis, 2+ pulses of the extremities, see skin assessment for wounds Neurological: Alert and Oriented x 3, intact senses, bilateral hand grasps and foot push/pulls equal. Psychological: Appropriate mood and behavior. Last Recorded Vitals Blood pressure 115/62, pulse 67, temperature 36.2 C (97.2 F), resp. rate 16, height 1.549 m (5' 0.98), weight 87.1 kg (191 lb 15.3 oz), last menstrual period 06/02/2023, SpO2 97 %. Visit Vitals BP 115/62 (BP Location: Left arm) Pulse 67 Temp 36.2 C (97.2 F) Resp 16 Ht 1.549 m (5' 0.98) Wt 87.1 kg (191 lb 15.3 oz) LMP 06/02/2023 (Approximate) SpO2 97% BMI 36.29 kg/m OB Status Having periods Smoking Status Never BSA 1.94 m Weight: 87.1 kg (191 lb 15.3 oz) Pain Assessment: 0-10 Pain Score: 0 - No pain Pain Type: Acute pain Pain Location: Abdomen Pain Orientation: Right; Upper Pain Descriptors: Radiating; Pressure Pain Frequency: Constant/continuous Relevant Results Results for orders placed or performed during the hospital encounter of 06/17/23 (from the past 24 hour(s)) POCT GLUCOSE Result Value Ref Range POCT Glucose 172 (H) 74 - 99 mg/dL CT abdomen pelvis w IV contrast Result Date: 06/16/2023 STUDY: CT Abdomen and Pelvis with IV Contrast; 06/16/2023 7:25 PM. INDICATION: Elevated liver function tests. Right upper quadrant abdominal pain. COMPARISON: CT AP 03/14/2023; US abd 05/23/2023. ACCESSION NUMBER(S): [id number] ORDERING CLINICIAN: DESMOND LAI TECHNIQUE: CT of the abdomen and pelviswas performed. Contiguous axial images were obtained at 3 mm slice thickness through the abdomen and pelvis. Coronal and sagittal reconstructions at 3 mm slice thickness were performed. Omnipaque [id number] mL was administered intravenously. FINDINGS: LOWER CHEST: No cardiomegaly. No pericardial effusion. Lung bases are clear. ABDOMEN: LIVER: No hepatomegaly. Smooth surface contour. There is hepatic s teatosis without focal liver lesion. BILE DUCTS: No intrahepatic or extrahepatic biliary ductal dilatation. GALLBLADDER: The gallbladder is surgically absent STOMACH: No abnormalities identified. PANCREAS: No masses or ductal dilatation. SPLEEN: No splenomegaly or focal splenic lesion. ADRENAL GLANDS: No thickening or nodules. KIDNEYS AND URETERS: Kidneys are normal in size and location. No renalor ureteral calculi. PELVIS: BLADDER: No abnormalities identified. REPRODUCTIVE ORGANS: The gynecological structures are unremarkable. BOWEL: Colon is stool-filled. Surgical clips are seen in the right lower quadrant in the absence of a visible appendix. Finding may appendectomy. VESSELS: No abnorma lities identified. Abdominal aorta is normal in caliber. PERITONEUM/RETROPERITONEUM/LYMPH NODES: Nofree fluid. No pneumoperitoneum. No lymphadenopathy. ABDOMINAL WALL: No abnormalities identified. SOFT TISSUES: No abnormalities identified. BONES: No acute fracture or aggressive osseous lesion. 1. Hepatic steatosis. 2. Previous cholecystectomy. 3. Stool-filled colon. Signed by Terry Weems M.D. EKG: Normal sinus rhythm, ventricular rate 76, MT 142, QRS 80, QTc 409. No ST elevation or depression noted. Medications Scheduled medications insulin lispro, 0-10 Units, subcutaneous, q4h ketorolac, 15 mg, intravenous, Once pantoprazole, 40 mg, intravenous, Daily Continuous medications sodium chloride 0.9%, 100 mL/hr, Last Rate: 100 mL/hr (06/17/23 0224) PRN medications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 [facility]* Attachments The following attachments cannot be sent through Care Everywhere. * Depression: Self Care ([place]) [facility]* Attachments The following attachments cannot be sent through Care Everywhere. * Depression: Self Care ([place]) [facility]* Attachments The following attachments cannot be sent through Care Everywhere. * Physical Activity: Walking ([place]) documented in this encounterOhioHealthReason for referral (narrative)* Diagnostic Procedure Only (Routine) - Authorized Specialty Diagnoses / Procedures Referred By Sung guerin Referred To Contact US IMAGING Diagnoses Elevated liver enzymes Procedures US ABD RT UPPER QUADRANT ULTRASOUND-ABDOMINAL PC Radha Campos APRN.CNP [address] [place] [address] Us Imaging Referral ID Status Reason Start Date Expiration Date Visits Requested Visits Authorized [id number] Authorized Auto-Generat ed Referral 01/23/2021 02/22/2022 1 1 [facility] for referral (narrative)* Consultation (Routine) - Authorized Specialty Diagnoses / Procedures Referred By Sung guerin Referred To Contact Primary Care Diagnoses Type 2 diabetes mellitus without complication, without long-term current use of insulin (CMS/HCC) Procedures Follow Up In Primary Care - Established Nicola Glez DO [address] [facility] [place] [address] Referral ID Status Reason Start Date Expiration Date V isits Requested Visits Authorized [id number] Authorized 06/25/2023 06/24/2024 1 1 * Consultation (Routine) - Authorized Specialty Diagnoses / Procedures Referred By Contac t Referred To Contact Nutrition Diagnoses Type 2 diabetes mellitus without complication, without long-term current use of insulin (CMS/HCC) Nicola Glez DO [address] [facility] [place] [address] Referral ID Status Reason Start Date Expiration Date Visits Requested Visits Authorized [id number] Authorized Specialty Services Required 06/25/2023 06/24/2024 1 1 * Imaging (Routine) - Authorized Specialty Diagnoses / Procedures Referred By Contac t Referred To Contact Radiology Diagnoses Thyroid enlargement Procedures US thyroid Nicola Glez DO [address] [facility] [place] [address] Referral ID Status Reason Start Date Expiration Date Visits Requested Visits Authorized [id number] Authorized Perform Procedure 06/25/2023 06/24/2024 1 1 [facility] Work Phone: reason for referral (narrative)* Consultation (Routine) - Authorized Specialty Diagnoses / Procedures Referred By Contac t Referred To Contact Hepatology Diagnoses Hepatic steatosis Transaminitis Procedures Follow Up In Hepatology Rach Ballesteros, TOOL DISPATCHER-RED CROSS WORKER [address] [facility] Department of [place] [address] Referral ID Status Reason Start Date Expiration Date V isits Requested Visits Authorized [id number] Authorized 08/14/2023 08/13/2024 1 1 [facility] Work Phone: Rehiln for referral (narrative)* Consultation (Routine) - Authorized Specialty Diagnoses / Procedures Referred By Contac t Referred To Contact Primary Care Procedures Follow Up In Primary Care - Established Nicola Glez DO [address] [facility] [place] [address] Referral ID Status Reason Start Date Expiration Date V isits Requested Visits Authorized [id number] Authorized 09/25/2023 09/24/2024 1 1 * Consultation (Routine) - Authorized Specialty Diagnoses / Procedures Referred By Sung t Referred To Contact Endocrinology Diagnoses Type 2 diabetes mellitus without complication, without long-term current use of insulin (Multi) Nicola Glez DO [address] [facility] [place] [address] Referral ID Status Reason Start Date Expiration Date Visits Requested Visits Authorized [id number] Authorized Specialty Services Required 09/25/2023 09/24/2024 1 1 [facility] Work Phone: Repsfv for referral (narrative)* Consultation (Routine) - Authorized Specialty Diagnoses / Procedures Referred By Sung guerin Referred To Contact Pharmacy Diagnoses New onset type 2 diabetes mellitus (Multi) Procedures Follow Up In Clinical Pharmacy Nicola Glez DO [address] [facility] [place] [address] [facility] [address] [place] [address] Referral ID Status Reason Start Date Expiration Date V isits Requested Visits Authorized [id number] Authorized 10/28/2023 10/27/2024 1 1 [facility] Work Phone: Reuybe for referral (narrative)* Consultation (Routine) - Authorized Specialty Diagnoses / Procedures Referred By Contac t Referred To Contact Pharmacy Diagnoses New onset type 2 diabetes mellitus (Multi) Procedures Follow Up In Clinical Pharmacy Nicola Glez DO [address] [facility] [place] [address] [facility] [address] [place] [address] Referral ID Status Reason Start Date Expiration Date V isits Requested Visits Authorized [id number] Authorized 11/04/2023 11/03/2024 1 1 T [facility] Work Phone: Rekmbc for referral (narrative)* Consultation (Routine) - Authorized Specialty Diagnoses / Procedures Referred By Contac t Referred To Contact Pharmacy Diagnoses New onset type 2 diabetes mellitus (Multi) Procedures Follow Up In Clinical Pharmacy Nicola Glez DO [address] [facility] Physician [place] [id number] [facility] [address] [place] [address] Referral ID Status Reason Start Date Expiration Date V isits Requested Visits Authorized [id number] Authorized 11/10/2023 11/09/2024 1 1 [facility] Work Phone: Reuvih for referral (narrative)* Consultation (Routine) - Authorized Specialty Diagnoses / Procedures Referred By Contac t Referred To Contact Pharmacy Diagnoses New onset type 2 diabetes mellitus (Multi) Procedures Follow Up In Clinical Pharmacy Nicola Glez DO [address] [facility] Physician [place] [id number] [facility] [address] [place] [address] Referral ID Status Reason Start Date Expiration Date V isits Requested Visits Authorized [id number] Authorized 12/05/2023 12/04/2024 1 1 T [facility] Work Phone: Reason for referral (narrative)* Consultation (Routine) - Authorized Specialty Diagnoses / Procedures Referred By Contac t Referred To Contact Primary Care Procedures Follow Up In Primary Care - Established Nicola Glez DO [address] [facility] Physician [place] [id number] Referral ID Status Reason Start Date Expiration Date V isits Requested Visits Authorized [id number] Authorized 12/11/2023 12/10/2024 1 1 * Consultation (Routine) - Authorized Specialty Diagnoses / Procedures Referred By Contac t Referred To Contact Endocrinology Diagnoses New onset type 2 diabetes mellitus (Multi) Nicola Glez DO [address] [place] [address] [place] [address] Referral ID Status Reason Start Date Expiration Date Visits Requested Visits Authorized [id number] Authorized Specialty Services Required 12/11/2023 12/10/2024 1 1 * Consultation (Routine) - Pending Review Specialty Diagnoses / Procedures Referred By Contac t Referred To Contact Physical Therapy Diagnoses Chronic bilateral low back pain with bilateral sciatica Nicola Glez DO [address] [facility] [place] [address] Referral ID Status Reason Start Date Expiration Date Visits Requested Visits Authorized [id number] Pending Review Specialty Services Required 12/11/2023 12/10/2024 1 1 [facility] Work Phone: Rejfzb for referral (narrative)* Consultation (Routine) - Authorized Specialty Diagnoses / Procedures Referred By Contac t Referred To Contact Primary Care Procedures Follow Up In Primary Care - Established Nicola Glez DO [address] [facility] [place] [address] Referral ID Status Reason Start Date Expiration Date V isits Requested Visits Authorized [id number] Authorized 12/30/2023 12/29/2024 1 1 [facility] Work Phone: Reason for visit Narrative* Imaging (Routine) - Authorized Specialty Diagnoses / Procedures Referred By Contac t Referred To Contact Radiology Diagnoses Neck mass Procedures US head neck soft tissue Nicola Glez DO [address] [facility] [place] [address] Phone: tel: fax: Referral ID Status Reason Start Date Expiration Date Visits Requested Visits Authorized [id number] Authorized Perform Procedure 06/15/2024 06/15/2025 1 1 [facility] Work Phone: Hospital Course Note Department of Obstetrics and Gynecology [facility] Discharge Summary Admission on 02/25/2020 5:36 PM Anahi Dwyer is a 34 y.o. at 24w0d who was admitted as a transfer from [place] for monitoring due to VB and tPTL in the setting of complete placenta previa. Began elio at 1730 on 02/24/20. Reports spotting throughout whole but increased VB requiring 2 pantiliners/day since 02/22/20. In [place], patient was started on magnesium sulfate for neuroprotection, given betamethasone, and given procardia x1 for tocolysis. On arrival, no vaginal bleeding was noted and cervix was visually closed with no contractions on toco. Received BMZ on 02/24 & 02/25. She had a large bleed and 10/10 abdominal pain on 02/28/20 and was delivered via classical . Meds: Anahi Dwyer Home Medication Instructions LAURIE:[id number] Printed on:02/25/20 [id number] Medication Information docusate sodium (COLACE) 100 MG capsule Take 100 mg by mouth 2 times daily as needed for Constipation hasnt used since end (more content not included)... Discharge Instructions * Discharge Instr - Diet* Holley Barahona DO - 03/01/2020 10:47 AM EST Good nutrition is important when healing from an illness, injury, or surgery. Follow any nutrition recommendations given to you during your hospital stay. If you were given an oral nutrition supplement while in the hospital, continue to take this supplement at home. You can take it with meals, in-between meals, and/or before bedtime. These supplements can be purchased at most local grocery stores, pharmacies, and chain [employer]-stores. If you have any questions about your diet or nutrition, call the hospital and ask for the dietitian. * Additional Instructions* Lotus Kilpatrick RN - 03/01/2020 After Your Delivery (the Period): Your Care Instructions Congratulations on the of your baby. Like , the period can be a time of excitement, gerry, and exhaustion. You may look at your wondrous little baby and feel happy. You may also be overwhelmed by your new sleep hours and new responsibilities. In these first weeks after delivery, try to take good care of yourself. It may take 4 to 6 weeks to feel like yourself again, and possibly longer if you had a . You will likely feel very tired for several weeks. Your dayswill be full of ups and downs, but lots of gerry as well. FOLLOW-UP: Your follow-up care is a espinal part of your treatment and safety. Follow-up with your OB doctor in {Time; 1 to 12 weeks:99969} weeks or as specified by your physician. Be sure to make and go to all appointments, and call your doctor if you are having problems. It's also a good idea to know your test results and keep a list of the medicines you take. BLEEDING Vaginal bleeding will decrease in amount over the next few weeks. Bleeding may pick up and delivery driver and then decrease again around 7-10 days . Use pads instead of tampons for the bloody flow that may last as long as 2 weeks. You will notice that as your activity increases, your flow may increase. Call your doctor if you are saturating one maxi pad in an hour & passing large clots for 3 hours or more. ACTIVITY NO SEXUAL activity for 6 weeks or until advised by your doctor; Nothing in vagina: intercourse, tampons, or douching. Showering is okay; NO tub baths, swimming, or hot tubs. Gradually increase your activity. Resume exercise regimen only after advice by your doctor. Avoid lifting anything heavier than your baby or a gallon of milk for six weeks. Avoid driving 1 week for vaginal delivery and 2 weeks for section, or longer if you are onprescription pain medicine unless otherwise instructed by your doctor. Rise slowly from a lying to sitting and then a standing position. Climb stairs carefully. Use caution when carrying your baby up and down the stairs. You may feel tired or have a lack of energy. You may continue your vitamin to replenish nutrients post delivery. Nap when baby naps to catch up on sleep. EMOTIONS You may feel joy, sad, teary, & overwhelmed for the first 2 weeks ; however, feelings of post depression may occur any time within the first year after delivery. Contact your OB provider if you feel you may be showing signs of depression, or have thoughts of harming yourself or your infant. If will not stop crying, contact another adult for help or place infant in their crib on their back and take a break. NEVER shake your . WOUND CARE For Vaginal Delivery: Shower daily, and cleanse your perineum (bottom) with mild soap from front to Back. Use the plasticsquirt bottle until bleeding stops each time you use the restroom instead of wiping with toilet paper. Ease soreness of hemorrhoids and the area between your vagina and rectum with ice compresses or witch ena pads. If used, stitches will dissolve in 4-6 weeks on their own. You may use a sitz bath or soak in a clean tub with drain open and water running for comfort. Kegel exercises will help restore bladder control. To do these tighten your muscles as if you were stopping your urine flow. Hold for a few seconds and then relax. Do these throughout the day. For Section Delivery: Keep your incision clean and dry. If you had steri-strips you may remove these once they start falling off. If you have logan they need to be removed 3-10 days after delivery. If you have steri-strips, remove after 7 - 10 days. Do not wear clothing that irritates the incision line. If your incision in in a crease that is not dry, use a hair-dryer to dry the area 3 times a day. If you develop fever, shaking chills, redness, swelling, drainage or discharge from your wound, or if your wound looks like it's coming apart call your doctor immediately. BREAST CARE If you develop a warm, red, tender area on your breast or develop a fever contact your doctor. For moms: If you become engorged, feeding may be more difficult or painful for 1-2 days. You may find it helpful to hand express some milk so that the can latch on more easily or ease soreness with wet,warm washcloths. While , continue to take your vitamins as directed by your doctor. For non- moms: You may apply ice packs to your breasts over you bra for twenty minutes at a time for comfort. Cabbage leaves may be applied to breasts, replace when wilted. Avoid stimulation to your breasts, when showering allow the water to strike your back not your breasts. Do not express milk or your body will make more. Wear a good fitting bra until your milk dries, such as a sports bra. DIET & CONSTIPATION Eat a well balanced diet focusing on foods high in fiber and protein such as: whole grain cereals and breads, fruits and vegetables and legumes (eg, beans, lentils) Drink 8-10 glasses of fluids daily, especially water. To avoid constipation you may take a mild kiwr-jib-ordnyui stool softener (such as colace) as recommended by your doctor. SWELLING Try to keep your legs elevated when you are sitting or lying down. Stay hydrated and take walks. BABY Babies sleep safest on their back in a crib without bumpers, blankets or stuffed animals. Do not sleep with your baby in your bed or the couch. Do not expose baby to smoke, this can increase risks of asthma and sudden syndrome. Ifyou or someone around baby smokes have them change their shirt and wash any facial hair before holding baby. Do not smoke inside the house and change the ventilation filters in the house before bringing baby home. WHEN TO CALL THE DOCTOR Signs of infection, including fever and chills Increased bleeding: soaking more than one sanitary pad an hour Wounds that become red, swollen or drain pus Vaginal discharge that smells foul New pain, swelling, or tenderness in your legs Pain that you can't control with the medications you've been given Pain, burning, urgency or frequency of urination, or persistent bleeding in the urine Cough, shortness of breath, or chest pain Depression, suicidal thoughts, or feelings of harming your baby Breasts that are hot, red and accompanied by fever Any cracking or bleeding from the nipple or areola (the dark-colored area of the breast) In case of an emergency, call 911 immediately. After Your Delivery Discharge Instructions After Discharge Orders: No future appointments. Medical equipment: none Call the Physician with any signs and symptoms: Warning signs regarding incision: Popping of stitches or logan Foul smelling discharge or pus More redness or streaks around incision than before Incision care: Keep incision uncovered No tub baths until OK'd by your Physician or Hat Finishing Materials Preparer You may use cold compresses on incision site After your delivery - signs and symptoms to watch for: Fever - Oral temperature greater than 100.4 degrees Fahrenheit Foul-smelling vaginal discharge Headache unrelieved by pain meds Difficulty urinating Breasts reddened, hard, hot to the touch Nipple discharge which is foul-smelling or contains pus Increased pain at the site of the surgical incision Difficulty breathing with or without chest pain New calf pain especially if only on one side Sudden, continuing increased vaginal bleeding with or without clots Unrelieved feelings of: Inability to cope Sadness Anxiety Lack of interest in baby Insomnia Crying What to do at home: See patient education handouts for full information Resume activity gradually Don't lift anything heavier than baby and carrier until OK'd by your Physician or Hat Finishing Materials Preparer No sex until OK'd by your Physician or Hat Finishing Materials Preparer Take care of yourself by sleeping/resting as much as possible Eat regular nutritious meals Let someone else care for you, your baby, and housework as much as possible Take pain medication as prescribed whenever you need them Wear compression stockings if prescribed To avoid/relieve constipation take stool softeners if advised Drink lots of water/fruit juices Increase fiber in your diet Breast care: Wear support bra 11/11; use lanolin ointment/cream as needed Refer to [place] Discharge Instructions for problems or follow-up regarding feeding/pumping * Attachments The following attachments cannot be sent through Care Everywhere. * Section: Post-op ([place]) * Care: : Baby in NICU ([place]) * OB CORONAVIRUS (COVID-19): , AND BABY CARE DISCHARGE INSTRUCTIONS documented in this encounter History of Present Illness * Iris Cortes IBCLC - 03/01/2020 11:15 AM EST Baby at [facility], 24 [id number]. She has been pumping without difficulty not getting much yet. Enc continued pumping and discussed importance of breast stimulation related to supply, benefits of keshawn in any amount. Reviewed pump regimen and settings, flange fit. Enc to call for flange fit assessment when pumping next time. Reviewed breast milk storage and collection. Discussed hospital grade pump for home use. [facility] with [facility] Enc hands on pumping. Informed of support and how to contact when needed. Verbalizes understanding. * Leticia Hui MD - 03/01/2020 5:31 AM EST POST OPERATIVE DAY # 2 Anahi Dwyer is a 34 y.o. female This patient was seen & examined today. Her was complicated by: Patient Active Problem List Diagnosis Placenta previa antepartum in second trimester Today she is doing well without any chief complaint. Her lochia is light. She denies chest pain, shortness of breath, lightheadedness and blurred vision. She is ambulating well. Flatus present. Bowelmovement present. Voiding spontaneously. She is tolerating solids. Pain is controlled yes. Vital Signs: Vitals: 02/29/20 0442 02/29/20 0913 02/29/20 1202 02/29/20 2047 BP: (!) 101/53 106/65 104/63 103/66 Pulse: 74 91 88 83 Resp: Temp: 97.8 F (36.6 C) 98.5 F (36.9 C) 97.7 F (36.5 C) 97.7 F (36.5 C) TempSrc: Temporal Temporal Temporal Temporal SpO2: 97% 98% 98% 96% Weight: Height: Urine Input & Output last 24hrs: Intake/Output Summary (Last 24 hours) at 03/01/2020 0535 Last data filed at 02/29/2020 0913 Gross per 24 hour Intake Output 200 ml Net -200 ml Physical Exam: General: no apparent distress, alert and cooperative Affect: appropriate Lungs: No increased work of breathing, good air exchange Abdomen: abdomen soft, non-distended, non-tender Fundus: non-tender, normal size, firm Incision: Clean, dry, and intact Extremities: no calf tenderness, non edematous Labs: Lab Results Component Value Date WBC 13.8 (H) 02/28/2020 HGB 9.0 (L) 02/29/2020 HCT 36.4 02/28/2020 MCV 86.2 02/28/2020 PLT 259 02/28/2020 A POS Antibody Screen: Antibody Screen Date Value Ref Range Status 02/28/2020 NEG NA Final No results found for: RUBELLAIGG LABOR DELIVERY ??? SCD's ONLY (labor through ambulation) SCD's PLUS Prophylactic Anticoagulation until discharge SCD's PLUS Prophylactic Anticoagulation for 6 weeks SCD's PLUS Therapeutic Anticoagulation for 6 weeks Vaginal Delivery [] BMI ? 40 kg/m2 Delivery All patients Vaginal Delivery [] BMI ? 40 kg/m2 AND [] Antepartum hospitalization ? 72 hours within the past month Delivery 1 Major Risk Factor: [] BMI ? 35 kg/m2 [] Low Risk Thrombophilia [] PPH+RBCs, IR, or operation [] Infection+Antibiotics [x] Antepartum hospitalization ? 72 hours within the past month [] PMH: Sickle Cell, SLE, Cardiac Dz, Active IBD, Active Cancer, Nephrotic Syndrome OR 2 Minor Risk Factors: [] Multiple gestation [] Age > 40 [x] PPH ? 1,000cc [] (+)FMH of VTE [] Smoker [] Preeclampsia [] BMI ? 40 kg/m2 AND [] Low Risk Thrombophilia OR ANY OF THE FOLLOWING: [] High Risk Thrombophilia without prior VTE [] Low Risk Thrombophilia with (+)FMH of VTE [] Any single prior VTE ANY OF THE FOLLOWING: [] Already on LMWH/UFH [] Multiple prior VTE [] High Risk Thrombophilia with prior VTE Low Risk Thrombophilia: FVL (heterozygous), Prothrombin (heterozygous), Protein C, Protein S High Risk Thrombophilia: FVL (homozygous), Prothrombin (homozygous), FVL+Prothrombin (heterozygous), Antithrombin III, APLS Assessment/Plan: 1. Anahi Dwyer is a POD # 2 s/p RLTCS 2. Care - Doing well, VSS - Female - Breast feeding - Contraception: Per private attending - Encourage ambulation and use of incentive spirometer - Postop Hb 9.0 - VTE Prophylaxis: Prophylactic Dosing until Discharge 3. Maternal PVC's - Chronic, evaluated by cardiology - Asx 4. Anxiety/Depression - Not on meds - Currently stable 5. Acute blood loss anemia - Hgb 12.1->9.0 - Iron and colace ordered 6. Disposition: Anticipate discharge today per private attending's discretion Based on my clinical assessment, this patient is safe for self discharge (does not need transport by wheelchair) if she so chooses. Provider's Name: MD Leticia Hernández MD 03/01/2020, 5:35 AM * Rach Tamez RN - 02/29/2020 6:12 PM EST Mom in wheelchair FOB escorting patient out to visit baby at [facility].Mom verbally understand's has to return to [facility] once done visiting baby. * Ruben Franklin DO - 02/29/2020 5:53 AM EST POST OPERATIVE DAY # 1 Anahi Dwyer is a 34 y.o. female This patient was seen & examined today. Her was complicated by: Patient Active Problem List Diagnosis Placenta previa antepartum in second trimester Today she is doing well without any chief complaint. Her lochia is light. She denies chest pain, shortness of breath, lightheadedness and blurred vision. She is ambulating well. Flatus present. Bowelmovement absent. Voiding spontaneously. She is tolerating solids. Pain is controlled yes. Vital Signs: Vitals: 02/28/20 1734 02/28/20 2017 02/28/20 2347 02/29/20 0442 BP: 129/66 109/65 109/61 (!) 101/53 Pulse: 93 73 59 74 Resp: 20 20 20 Temp: 98 F (36.7 C) 98.1 F (36.7 C) 97.8 F (36.6 C) TempSrc: Temporal Oral Temporal Temporal SpO2: 97% 97% 97% 97% Weight: Height: Urine Input & Output last 24hrs: Intake/Output Summary (Last 24 hours) at 02/29/2020 0553 Last data filed at 02/29/2020 0445 Gross per 24 hour Intake 3210 ml Output 4400 ml Net -1190 ml Physical Exam: General: no apparent distress, alert and cooperative Affect: appropriate Lungs: No increased work of breathing, good air exchange Abdomen: abdomen soft, non-distended, non-tender Fundus: non-tender, normal size, firm Incision: Dressing remains in place Extremities: no calf tenderness, non edematous Labs: Lab Results Component Value Date WBC 13.8 (H) 02/28/2020 HGB 9.0 (L) 02/29/2020 HCT 36.4 02/28/2020 MCV 86.2 02/28/2020 PLT 259 02/28/2020 A POS Antibody Screen: Antibody Screen Date Value Ref Range Status 02/28/2020 NEG NA Final No results found for: RUBELLAIGG LABOR DELIVERY ??? SCD's ONLY (labor through ambulation) SCD's PLUS Prophylactic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 07/23/2024 [facility] DATE CREATED AUTHOR AUTHOR'S ORGANIZ ATION 08/29/2024 [facility] DATE CREATED AUTHOR AUTHOR'S ORGANIZ ATION 09/22/2024 [facility] DATE CREATED AUTHOR AUTHOR'S ORGANIZ ATION 11/06/2024 [facility] DATE CREATED AUTHOR AUTHOR'S ORGANIZ ATION 11/07/2024 [facility] DATE CREATED AUTHOR AUTHOR'S ORGANIZ ATION 11/21/2024 [facility] <item><item> Privacy Markings (unrecogniz ed section and content) Section Author: Brandee Melton PROHIBITION ON REDISCLOSURE OF CONFIDENTIAL INFORMATION This notice accompanies a disclosure of information concerning a client made to you with the consent of such client. Section Author: Brandee Melton PROHIBITION ON REDISCLOSURE OF CONFIDENTIAL INFORMATION This notice accompanies a disclosure of information concerning a client made to you with the consent of such client. Source Comments (unrecognize d section and content) In the event this informatio n is protected by the Federal Confidentiality of Alcohol and Drug Abuse Patient Records regulations: The Federal rules restrict any use of the information to criminally investigate or prosecute any alcohol or drug abuse patient.[facility] the event this information is protected by the Federal Confidentiality of Alcohol and Drug Abuse Patient Records regulations: The Federal rules restrict any use of the information to criminally investigate or prosecute any alcohol or drug abuse patient.[facility] the event this information is protected by the Federal Confidentiality of Alcohol and Drug Abuse Patient Records regulations: The Federal rules restrict any use of the information to criminally investigate or prosecute any alcohol or drug abuse patient.[facility] the event this information is protected by the Federal Confidentiality of Alcohol and Drug Abuse Patient Records regulations: The Federal rules restrict any use of the information to criminally investigate or prosecute any alcohol or drug abuse patient.[facility] CampusIn the event this information is protected by the Federal Confidentiality of Alcohol and Drug Abuse Patient Records regulations: The Federal rules restrict any use of the information to criminally investigate or prosecute any alcohol or drug abuse patient.[facility] CampusIn the event this information is protected by the Federal Confidentiality of Alcohol and Drug Abuse Patient Records regulations: The Federal rules restrict any use of the information to criminally investigate or prosecute any alcohol or drug abuse patient.[facility] CampusIn the event this information is protected by the Federal Confidentiality of Alcohol and Drug Abuse Patient Records regulations: The Federal rules restrict any use of the information to criminally investigate or prosecute any alcohol or drug abuse patient.[facility] CampusIn the event this information is protected by the Federal Confidentiality of Alcohol and Drug Abuse Patient Records regulations: The Federal rules restrict any use of the information to criminally investigate or prosecute any alcohol or drug abuse patient.[facility] CampusIn the event this information is protected by the Federal Confidentiality of Alcohol and Drug Abuse Patient Records regulations: The Federal rules restrict any use of the information to criminally investigate or prosecute any alcohol or drug abuse patient.[facility] CampusIn the event this information is protected by the Federal Confidentiality of Alcohol and Drug Abuse Patient Records regulations: The Federal rules restrict any use of the information to criminally investigate or prosecute any alcohol or drug abuse patient.[facility] CampusIn the event this information is protected by the Federal Confidentiality of Alcohol and Drug Abuse Patient Records regulations: The Federal rules restrict any use of the information to criminally investigate or prosecute any alcohol or drug abuse patient.[facility] CampusIn the event this information is protected by the Federal Confidentiality of Alcohol and Drug Abuse Patient Records regulations: The Federal rules restrict any use of the information to criminally investigate or prosecute any alcohol or drug abuse patient.[facility] CampusIn the event this information is protected by the Federal Confidentiality of Alcohol and Drug Abuse Patient Records regulations: The Federal rules restrict any use of the information to criminally investigate or prosecute any alcohol or drug abuse patient.[facility] Care Teams (unrecognized sec tion and content) Technical Business Systems Analyst Relationship Specialty Start Date End Date Nelly Agarwal MD [address] [place] [address] PCP - General Family Practice 01/06/19 Technical Business Systems Analyst Relationship Specialty Start Date End Date Francesca Vásquez DDS [address] [place] [address] Fellow Dentistry 01/19/22 Technical Business Systems Analyst Relationship Specialty Start Date End Date Nicola Glez [address] [address] PCP - General Internal Medicine 03/18/22 Technical Business Systems Analyst Relationship Specialty Start Date End Date Nicola Glez [address] [address] PCP - General Internal Medicine 03/18/22 Technical Business Systems Analyst Relationship Specialty Start Date End Date Francesca Vásquez REGINAS [address] [place] [address] Fellow Dentistry 01/19/22 Technical Business Systems Analyst Relationship Specialty Start Date End Date Francesca Vásquez DDS [address] [place] [address] Fellow Dentistry 01/19/22 Technical Business Systems Analyst Relationship Specialty Start Date End Date Nicola Glez [address] [address] PCP - General Internal Medicine 03/18/22 Technical Business Systems Analyst Relationship Specialty Start Date End Date Francesca Vásquez DDS [address] [place] [address] Fellow Dentistry 01/19/22 Technical Business Systems Analyst Relationship Specialty Start Date End Date Nicola Glez DO [address] [facility] [place] [address] PCP - General 12/13/21 Technical Business Systems Analyst Relationship Specialty Start Date End Date Francesca Vásquez DDS [address] [place] [address] Fellow Dentistry 01/19/22 Team Status: Active Member Role Status Dates Radha Campos ANALYTICS SENIOR MANAGER, ANALYTICS SENIOR MANAGER-C Family Provider Active Dr. Nicola Glez , DO Primary Care Provider Active Team Status: Inactive Member Role Status Dates Dr. Michelle Huerta , DO Attending Provider Activ e Dr. Nicola Glez , DO Primary Care Provider, Refer ring Provider Active Team Status: Inactive Member Role Status Dates Dr. Nicola Glez , DO Primary Care Provider Active Dr. Michelle Huerta , DO Attending Provider, Refe rring Provider Active Technical Business Systems Analyst Relationship Specialty Start Date End Date Nicola Glez DO [address] [facility] [place] [address] PCP - General 12/13/21 Nicola Glez DO [address] [facility] [place] [address] PCP - [facility] Medicaid PCP 07/20/22 Technical Business Systems Analyst Relationship Specialty Start Date End Date Nicola Glez DO [address] [facility] [place] [address] PCP - General 12/13/21 Nicola Glez DO [address] [facility] [place] [address] PCP - [facility] Medicaid PCP 07/20/22 Team Status: Inactive Member Role Status Dates Dr. Nicola Glez , DO Primary Care Provider, Refer ring Provider Active Dr. Michelle Huerta , DO Attending Provider Activ e Team Status: Inactive Member Role Status Dates Dr. Nicola Glez , DO Primary Care Provider Active Dr. Tyler Ariza , DO Emergency Provider Active Team Status: Inactive Member Role Status Dates Dr. Nicola Glez , DO Primary Care Provider Active Dr. Tyler Ariza , DO Attending Provider, Emergency Provider Active Technical Business Systems Analyst Relationship Specialty Start Date End Date Nicola Glez DO [address] [place] [address] PCP - General Internal Medicine 03/18/22 Technical Business Systems Analyst Relationship Specialty Start Date End Date Nicola Glez DO [address] [place] [address] PCP - General Internal Medicine 03/18/22 Technical Business Systems Analyst Relationship Specialty Start Date End Date Nicola Glez DO [address] [place] [address] PCP - General Internal Medicine 03/18/22 Technical Business Systems Analyst Relationship Specialty Start Date End Date Nicola Glez DO [address] [facility] [place] [address] PCP - General 12/13/21 Nicola Glez DO [address] [facility] [place] [address] PCP - [facility] Medicaid PCP 07/20/22 Technical Business Systems Analyst Relationship Specialty Start Date End Date Nicola Glez DO [address] [facility] [place] [address] PCP - General 12/13/21 Nicola Glez, DO [address] [facility] [place] [address] PCP - [facility] Medicaid PCP 07/20/22 Technical Business Systems Analyst Relationship Specialty Start Date End Date Nicola Glez, DO [address] [facility] [place] [address] PCP - General 12/13/21 Nicola Glez, DO [address] [facility] [place] [address] PCP - [facility] Medicaid PCP 07/20/22 Technical Business Systems Analyst Relationship Specialty Start Date End Date Nicola Glez, DO [address] [facility] [place] [address] PCP - General 12/13/21 Nicola Glez, DO [address] [facility] [place] [address] PCP - [facility] Medicaid PCP 07/20/22 Technical Business Systems Analyst Relationship Specialty Start Date End Date Nicola Glez, DO [address] [facility] [place] [address] PCP - General 12/13/21 Nicola Glez, DO [address] [facility] [place] [address] PCP - [facility] Medicaid PCP 07/20/22 Technical Business Systems Analyst Relationship Specialty Start Date End Date Nicola Glez DO [address] [facility] [place] [address] PCP - General 12/13/21 Nicola Glez DO [address] [facility] [place] [address] PCP - [facility] Medicaid PCP 07/20/22 Technical Business Systems Analyst Relationship Specialty Start Date End Date Nicola Glez DO [address] [facility] [place] [address] PCP - General 12/13/21 Nicola Glez DO [address] [facility] [place] [address] PCP - [facility] Medicaid PCP 07/20/22 Say Foley LPN Care Shop Repairer 06/23/23 Technical Business Systems Analyst Relationship Specialty Start Date End Date Nelly Agarwal MD [address] [place] [address] PCP - General Family Medicine 01/06/19 Technical Business Systems Analyst Relationship Specialty Start Date End Date Nelly Agarwal MD [address] [place] [address] PCP - General Family Medicine 01/06/19 Technical Business Systems Analyst Relationship Specialty Start Date End Date Nicola Glez DO [address] [place] [address] PCP - General Internal Medicine 03/18/22 Technical Business Systems Analyst Relationship Specialty Start Date End Date Nelly Agarwal MD [address] [place] [address] PCP - General Family Medicine 01/06/19 Technical Business Systems Analyst Relationship Specialty Start Date End Date Nelly Agarwal MD [address] [place] [address] PCP - General Family Medicine 01/06/19 Technical Business Systems Analyst Relationship Specialty Start Date End Date Nelly Agarwal MD [address] [place] [address] PCP - General Family Medicine 01/06/19 Technical Business Systems Analyst Relationship Specialty Start Date End Date Nelly Agarwal MD [address] [place] [address] PCP - General Family Medicine 01/06/19 Technical Business Systems Analyst Relationship Specialty Start Date End Date Nicola Glez DO [address] [place] [address] PCP - General Internal Medicine 03/18/22 Technical Business Systems Analyst Relationship Specialty Start Date End Date Nelly Agarwal MD [address] [place] [address] PCP - General Family Medicine 01/06/19 Technical Business Systems Analyst Relationship Specialty Start Date End Date Nelly Agarwal MD [address] [place] [address] PCP - General Family Medicine 01/06/19 Technical Business Systems Analyst Relationship Specialty Start Date End Date Nelly Agarwal MD [address] [place] [address] PCP - General Family Medicine 01/06/19 Technical Business Systems Analyst Relationship Specialty Start Date End Date Nicola Glez DO [address] [facility] [place] [address] PCP - General 12/13/21 Nicola Glez DO [address] [facility] [place] [address] PCP - [facility] Medicaid PCP 07/20/22 Say Foley LPN Care Shop Repairer 06/23/23 Team Status: Inactive Member Role Status Dates Dr. Nicola Glez , Primary Care Provider, Refer ring Provider Active Kasie Aden ANALYTICS SENIOR MANAGER, ANALYTICS SENIOR MANAGER-C Attending Provider Active Team Status: Inactive Member Role Status Dates Dr. Nicola Glez , Primary Care Provider Active Kasie Aden ANALYTICS SENIOR MANAGER, ANALYTICS SENIOR MANAGER-C Attending Provider, Referring Provider Active Technical Business Systems Analyst Relationship Specialty Start Date End Date Nicola Glez DO [address] [place] [address] PCP - General Internal Medicine 03/18/22 Technical Business Systems Analyst Relationship Specialty Start Date End Date Nicola Glez DO [address] [facility] [place] [address] PCP - General 12/13/21 Nicola Glez DO [address] [facility] [place] [address] PCP - [facility] Medicaid PCP 07/20/22 Say Foley LPN Care Shop Repairer 06/23/23 09/01/23 Technical Business Systems Analyst Relationship Specialty Start Date End Date Nicola Glez DO [address] [facility] [place] [address] PCP - General 12/13/21 Nicola Glez DO [address] [facility] [place] [address] PCP - [facility] Medicaid PCP 07/20/22 Say Foley LPN Care Shop Repairer 09/04/23 Technical Business Systems Analyst Relationship Specialty Start Date End Date Nicola Glez DO [address] [place] [address] PCP - General Internal Medicine 03/18/22 Technical Business Systems Analyst Relationship Specialty Start Date End Date Nicola Glez DO [address] [place] [address] PCP - General Internal Medicine 03/18/22 Technical Business Systems Analyst Relationship Specialty Start Date End Date Nicola Glez DO [address] [place] [address] PCP - General Internal Medicine 03/18/22 Technical Business Systems Analyst Relationship Specialty Start Date End Date Nicola Glez DO [address] [place] [address] PCP - General Internal Medicine 03/18/22 Technical Business Systems Analyst Relationship Specialty Start Date End Date Nelly Agarwal MD [address] [place] [address] PCP - General Family Medicine 01/06/19 08/26/23 Technical Business Systems Analyst Relationship Specialty Start Date End Date Nicola Glez DO [address] [facility] [place] [address] PCP - General 12/13/21 Titi Quezada, DO [address] [facility], [address] [address] PCP - [facility] Medicaid PCP 10/20/23 Technical Business Systems Analyst Relationship Specialty Start Date End Date Nicola Glez DO [address] [facility] [place] [address] PCP - General 12/13/21 Titi Quezada, [address] [facility], [place] [id number] PCP - [facility] Medicaid PCP 10/20/23 Kinza Perez LPN Care Shop Repairer 02/09/24 Technical Business Systems Analyst Relationship Specialty Start Date End Date Nicola Glez, [address] [facility] Physician [place] [id number] PCP - General 12/13/21 Titi Quezada DO [address] [facility], [place] [id number] PCP - [facility] Medicaid PCP 10/20/23 Kinza Perez LPN Care Shop Repairer 02/09/24 Technical Business Systems Analyst Relationship Specialty Start Date End Date Nicola Glez, [address] [facility] [place] [address] PCP - General 12/13/21 Titi Quezada DO [address] [facility], [address] [address] PCP - [facility] Medicaid PCP 10/20/23 Kinza Perez LPN Care Shop Repairer 02/09/24 Technical Business Systems Analyst Relationship Specialty Start Date End Date Nicola Glez DO [address] [facility] [place] [address] PCP - General 12/13/21 Kinza Perez LPN Care Shop Repairer 02/09/24 Technical Business Systems Analyst Relationship Specialty Start Date End Date Nicola Glez, DO [address] [place] [address] PCP - General Internal Medicine 03/18/22 Technical Business Systems Analyst Relationship Specialty Start Date End Date Nicola Glez DO [address] [facility] [place] [address] PCP - General 12/13/21 Technical Business Systems Analyst Relationship Specialty Start Date End Date Nicola Glez, DO [address] [facility] [place] [address] PCP - General 12/13/21 Technical Business Systems Analyst Relationship Specialty Start Date End Date Nicola Glez DO [address] [facility] [place] [address] PCP - General 12/13/21 Technical Business Systems Analyst Relationship Specialty Start Date End Date Nicola Glez, DO [address] [facility] [place] [address] PCP - General 12/13/21 Technical Business Systems Analyst Relationship Specialty Start Date End Date Nicola Glez DO [address] [facility] [place] [address] PCP - General 12/13/21 Technical Business Systems Analyst Relationship Specialty Start Date End Date Nicola Glez DO [address] [facility] [place] [address] PCP - General 12/13/21 Titi Quezada, DO [address] [facility], [facility] [address] [place] [id number] PCP - [facility] Medicaid PCP 10/20/23 Technical Business Systems Analyst Relationship Specialty Start Date End Date Nicola Glez DO [address] [facility] Physician [place] [phone] PCP - General 12/13/21 Technical Business Systems Analyst Relationship Specialty Start Date End Date Nicola Glez DO [address] [place] [id number] PCP - General Internal Medicine 03/18/22 Technical Business Systems Analyst Relationship Specialty Start Date End Date Nicola Glez DO [address] [facility] [place] [address] PCP - General 12/13/21 Technical Business Systems Analyst Relationship Specialty Start Date End Date Nicola Glez DO [address] [facility] [place] [address] PCP - General 12/13/21 Technical Business Systems Analyst Relationship Specialty Start Date End Date Nicola Glez DO [address] [facility] [place] [address] PCP - General 12/13/21 Team Status: Active Member Role Status Dates No Primary Care Physician Primary Care Provider Active Team Status: Inactive Member Role Status Dates Dr. Nicola Glez DO Primary Care Provider Active Start: March 26, 2024 End: March 26, 2024 Prabhakar Dempsey MD Attending Provider Active St art: March 26, 2024 End: March 26, 2024 Prabhakar Dempsey MD Referring Provider Active St art: March 26, 2024 End: March 26, 2024 Team Status: Inactive Member Role Status Dates Dr. Nicola Glez DO Primary Care Provider Active Start: April 02, 2024 End: April 02, 2024 Dr. Nicola Glez DO Referring Provider Active Start: April 02, 2024 End: April 02, 2024 Dr. Rosas Lopes MD Attending Provider Active Start: April 02, 2024 End: April 02, 2024 Team Status: Inactive Member Role Status Dates Dr. Nicola Glez DO Primary Care Provider Active Start: April 07, 2024 End: April 07, 2024 Dr. Rosas Lopes MD Attending Provider Active Start: April 07, 2024 End: April 07, 2024 Dr. Rosas Lopes MD Referring Provider Active Start: April 07, 2024 End: April 07, 2024 Team Status: Inactive Member Role Status Dates Dr. Nicola Glez DO Primary Care Provider Active Start: June 28, 2024 End: June 28, 2024 Dr. Nicola Glez DO Referring Provider Active Start: June 28, 2024 End: June 28, 2024 MARIA VICTORIA Berumen Attending Provider Active Start: June 28, 2024 End: June 28, 2024 Team Status: Inactive Member Role Status Dates No Primary Care Physician Primary Care Provider Active Start: June 30, 2024 End: June 30, 2024 MARIA VICTORIA Berumen Attending Provider Active Start: June 30, 2024 End: June 30, 2024 MARIA VICTORIA Berumen Referring Provider Active Start: June 30, 2024 End: June 30, 2024 Team Status: Inactive Member Role Status Dates Dr. Nicola Glez DO Referring Provider Active Start: June 30, 2024 End: June 30, 2024 Dr. Michelle Huerta DO Attending Provider Activ e Start: June 30, 2024 End: June 30, 2024 No Primary Care Physician Primary Care Provider Active Start: June 30, 2024 End: June 30, 2024 Team Status: Active Member Role Status Dates No Primary Care Physician Primary Care Provider Active Start: July 16, 2024 Dr. Michelle Huerta DO Attending Provider Activ e Start: July 16, 2024 Dr. Michelle Huerta DO Referring Provider Activ e Start: July 16, 2024 Team Status: Active Member Role Status Dates Dr. Michelle Huerta DO Attending Provider Activ e Start: July 18, 2024 No Primary Care Physician Primary Care Provider Active Start: July 18, 2024 Team Status: Inactive Member Role Status Dates No Primary Care Physician Primary Care Provider Active Start: July 19, 2024 End: July 19, 2024 Dr. Dwaine Jacome MD Emergency Provider Active Start: July 19, 2024 End: July 19, 2024 Team Status: Inactive Member Role Status Dates No Primary Care Physician Primary Care Provider Active Start: July 16, 2024 End: July 16, 2024 Dr. Michelle Huerta DO Attending Provider Activ e Start: July 16, 2024 End: July 16, 2024 Dr. Michelle Huerta DO Referring Provider Activ e Start: July 16, 2024 End: July 16, 2024 Technical Business Systems Analyst Relationship Specialty Start Date End Date Carri Carrasco PA-C [address] [place] [address] PCP - General Internal Medicine 06/22/24 Team Status: Inactive Member Role Status Dates Dr. Michelle Huerta DO Attending Provider Activ e Start: July 18, 2024 End: July 18, 2024 No Primary Care Physician Primary Care Provider Active Start: July 18, 2024 End: July 18, 2024 Technical Business Systems Analyst Relationship Specialty Start Date End Date Nicola lGez DO [address] [place] [address] PCP - General Internal Medicine 03/18/22 Technical Business Systems Analyst Relationship Specialty Start Date End Date Generic Provider, No Assigned MD Ed[facility] [place] [address] PCP - General Aircraft Delivery Checker 08/24/24 Technical Business Systems Analyst Relationship Specialty Start Date End Date Generic Provider, [place] [address] PCP - General Aircraft Delivery Checker 08/24/24 Team Status: Inactive Member Role Status Dates No Primary Care Physician Primary Care Provider Active Start: July 19, 2024 End: July 19, 2024 Dr. Dwaine Jacome MD Attending Provider Active Start: July 19, 2024 End: July 19, 2024 Dr. Dwaine Jacome MD Emergency Provider Active Start: July 19, 2024 End: July 19, 2024 Team Status: Inactive Member Role Status Dates No Primary Care Physician Primary Care Provider Active Start: July 22, 2024 End: July 22, 2024 No Primary Care Physician Referring Provider Active Start: July 22, 2024 End: July 22, 2024 Dr. Michelle Huerta DO Attending Provider Activ e Start: July 22, 2024 End: July 22, 2024 Team Status: Inactive Member Role Status Dates No Primary Care Physician Primary Care Provider Active Start: October 04, 2024 End: October 04, 2024 Estefania Mc CNM Attending Provider Active S tart: October 04, 2024 End: October 04, 2024 Estefania Mc CNM Referring Provider Active S tart: October 04, 2024 End: October 04, 2024 Team Status: Active Member Role/Relationship Status Dates JANNA Medina Primary Care Provider Active Team Status: Inactive Member Role/Relationship Status Dates No Primary Care Physician Primary Care Provider Active Start: July 16, 2024 End: July 16, 2024 Dr. Michelle Huerta DO Attending Provider Activ e Start: July 16, 2024 End: July 16, 2024 Dr. Michelle Huerta DO Referring Provider Activ e Start: July 16, 2024 End: July 16, 2024 Team Status: Inactive Member Role/Relationship Status Dates Dr. Michelle Huerta DO Attending Provider Activ e Start: July 18, 2024 End: July 18, 2024 No Primary Care Physician Primary Care Provider Active Start: July 18, 2024 End: July 18, 2024 Team Status: Inactive Member Role/Relationship Status Dates No Primary Care Physician Primary Care Provider Active Start: July 19, 2024 End: July 19, 2024 Dr. Dwaine Jacome MD Attending Provider Active Start: July 19, 2024 End: July 19, 2024 Dr. Dwaine Jacome MD Emergency Provider Active Start: July 19, 2024 End: July 19, 2024 Team Status: Inactive Member Role/Relationship Status Dates No Primary Care Physician Primary Care Provider Active Start: July 22, 2024 End: July 22, 2024 No Primary Care Physician Referring Provider Active Start: July 22, 2024 End: July 22, 2024 Dr. Michelle Huerta DO Attending Provider Activ e Start: July 22, 2024 End: July 22, 2024 Team Status: Inactive Member Role/Relationship Status Dates No Primary Care Physician Primary Care Provider Active Start: October 04, 2024 End: October 04, 2024 Estefania Mc CNM Attending Provider Active S tart: October 04, 2024 End: October 04, 2024 Estefania Mc CNM Referring Provider Active S tart: October 04, 2024 End: October 04, 2024 Team Status: Inactive Member Role/Relationship Status Dates Micki Gomez PA-C Attending Provider Active St art: October 28, 2024 End: October 28, 2024 Micki Gomez PA-C Referring Provider Active St art: October 28, 2024 End: October 28, 2024 JANNA Medina Primary Care Provider Active Start: October 28, 2024 End: October 28, 2024 Technical Business Systems Analyst Relationship Specialty Start Date End Date Carri Carrasco PA-C [address] [place] [address] PCP - General Physician Corner Cutter 11/02/24 Technical Business Systems Analyst Relationship Specialty Start Date End Date Carri Carrasco PA-C [address] [place] [address] PCP - General Internal Medicine 11/24/24 Goals (unrecognized section and content) Goals may be documented in a n alternate sectionGoals may be documented in an alternate sectionGoals may be documented in an alternate sectionGoals may be documented in an alternate sectionGoals may be documented in an alternate sectionGoals may be documented in an alternate sectionGoals may be documented in an alternate sectionGoals may be documented in an alternate sectionGoals may be documented in an alternate sectionGoals may be documented in an alternate sectionGoals may be documented in an alternate section Scheduled Active and Recently Administ ered Medications (unrecognized section and content) Medication Order 03/12/2023 03/13/2023 03/14/2023 iohexol (OMNIPaque) 350 mg iodine/mL solution 70 mL (COMPLETED) 70 mL, intravenous, Once in imaging, Starting on Fri03/14/23 at 1155, For 1 dose 1156 (Given - Provid er: Lor Shepard) morphine injection 4 mg (COMPLETED) 4 mg, intravenous, Once, On Fri03/14/23 at 1040, For 1 dose 1111 (Given - Provid er: Elena Monahan RN) ondansetron (Zofran) injection 4 mg (COMPLETED) 4 mg, intravenous, Once, On Fri03/14/23 at 1040, For 1 dose, When administering via IV Push, administer over 3-5 minutes. 1111 (Given - Provid er: Elena Monahan RN) sodium chloride 0.9 % bolus 1,000 mL (COMPLETED) 1,000 mL, intravenous, at 1,000 mL/hr, Administer over 1 Hours, Once, On Fri03/14/23 at 1040, For 1 dose 1110 (New Bag - Prov ider: Elena Monahan RN)1210 (Stopped - Provider: Elena Monahan RN) Continuous Medication Order 03/12/2023 03/13/2023 03/14/2023 sodium chloride 0.9% infusion 150 mL/hr, intravenous, Continuous, Starting on Fri03/14/23 at 1040 1040 (Not Given - Pr ovider: Elena Monahan RN - Reason: Other - Comment: pt D/C) Scheduled Medication Order 06/18/2023 06/19/2023 06/20/2023 ARIPiprazole (Abilify) tablet 5 mg 5 mg, oral, Daily, First dose on Fri06/17/23 at 1230 1118 (Given - Provider: Lior Ledesma RN) 1202 (Given - Provider: Emy Kohli, RN) 1153 (Given - Provider: Ayush Bosch, RN) bisacodyl (Dulcolax) suppository 10 mg 10 mg, rectal, Daily, First dose on Fri06/18/23 at 1015 1124 (Given - Provider: Lior Ledesma RN) 0900 (Not Given - Provider: Emy Kohli RN - Reason: Contraindicated) 0900 (Not Given - Provider: Ayush Bosch RN - Reason: Patient/family refused) FLUoxetine (PROzac) capsule 20 mg 20 mg, oral, Daily, First dose on Fri06/17/23 at 1230 1119 (Given - Provider: Lior Ledesma RN) 1202 (Given - Provider: Emy Kohli RN) 1152 (Given - Provider: Ayush Bosch, RN) insulin glargine (Lantus) injection 12 Units 12 Units, subcutaneous, Daily, First dose on Fri06/17/23 at 0900 1123 (Given - Provider: Lior Ledesma RN) 1205 (Given - Provider: Emy Kohli, MIRYAM) 0842 (Given - Provider: Ayush Bosch, RN) insulin lispro (HumaLOG) injection 0-10 Units 0-10 Units, subcutaneous, Every 4 hours, First dose on Fri06/17/23 at 0230, Insulin Lispro Corrective Scale #2 Hypoglycemia protocol Call LIP unit(s) if Blood Glucose is between 0 - 70 mg/dL 0 unit(s) if Blood glucose is between 71-150 2 unit(s) if Blood glucose is between 151-200 4 unit(s) if Blood glucose is between 201-250 6 unit(s) if Blood glucose is between 251-300 8 unit(s) if Blood glucose is between 301-350 10 unit(s) if Blood glucose is between 351-400 Notify provider unit(s) if Blood Glucose is greater than 400 mg/dL 0230 (Not Given - Provider: Sushila Quispe RN - Reason: Order parameters not met - Comment: Patient's blood glucose 126)0640 (Given - Provider: Sushila Quispe RN - Comment: blood glucose 171)1131 (Given - Provider: Lior Ledesma RN)1430 (Not Given - Provider: Lior Ledesma RN - Reason: Order parameters not met)1830 (Not Given - Provider: Lior Ledesma RN - Reason: Order parameters not met)2224 (Given - Provider: Dalila Cortes RN) 0230 (Not Given - Provider: Dalila Cortes RN - Reason: Order parameters not met)0630 (Not Given - Provider: Dalila Cortes RN - Reason: Order parameters not met - Comment: bbs was 110)1030 (Not Given - Provider: Emy Kohli RN - Reason: Contraindicated)1430 (Not Given - Provider: Emy Kohli RN - Reason: Contraindicated)1830 (Not Given - Provider: Emy Kohli RN - Reason: Contraindicated)2230 (Not Given - Provider: Dalila Cortes RN - Reason: Order parameters not met) 0230 (Not Given - Provider: Dalila Cortes RN - Reason: Order parameters not met - Comment: bbs was 114)0630 (Not Given - Provider: Dalila Cortes RN - Reason: Order parameters not met - Comment: BBS 129)1030 (Not Given - Provider: Ayush Bosch RN - Reason: Order parameters not met - Comment: BS 108)1430 (Not Given - Provider: Ayush Bosch RN - Reason: Order parameters not met - Comment: BS 111)1830 (Due)2230 (Due) loratadine (Claritin) tablet 10 mg 10 mg, oral, Daily, First dose on Fri06/17/23 at 1230 1119 (Given - Provider: Lior Ledesma RN) 1202 (Given - Provider: Emy Kohli RN) 1152 (Given - Provider: Ayush Bosch, MIRYAM) minoxidil (Loniten) tablet 1.25 mg 1.25 mg, oral, Daily, First dose on Fri06/17/23 at 1230 1118 (Given - Provider: Lior Ledesma RN) 1202 (Given - Provider: Emy Kohli, MIRYAM) 1151 (Given - Provider: Ayush Bosch RN) morphine injection 1 mg (COMPLETED) 1 mg, intravenous, Once, On Fri06/18/23 at 1345, For 1 dose, For severe pain patient n.p.o. 1328 (Given - Provider: Lior Ledesma RN) morphine injection 2 mg (COMPLETED) 2 mg, intravenous, Once, On Leana 06/19/23 at 0100, For 1 dose 0153 (Given - Provider: Dalila Cortes RN) pantoprazole (ProtoNix) EC tablet 40 mg 40 mg, oral, Daily before breakfast, First dose on Fri06/18/23 at 0700, Do not crush, chew, or split. 0626 (Given - Provider: Sushila Quispe RN) 0700 (Not Given - Provider: Dalila Cortes RN - Reason: NPO) 0700 (Not Given - Provider: Dalila Cortes RN - Reason: NPO) polyethylene glycol (Glycolax, Miralax) packet 17 g (CANCELED) 17 g, oral, 3 times daily, First dose (after last modification) on Fri06/17/23 at 1500, Bowel Regimen - for prevention of constipation. 0856 (Given - Provider: Lior Ledesma RN)1500 (Not Given - Provider: Lior Ledesma RN - Reason: NPO)2100 (Not Given - Provider: Dalila Cortes RN - Reason: Other - Comment: incontinent of stools too loose) 0900 (Not Given - Provider: Emy Kohli RN - Reason: Contraindicated)1500 (Not Given - Provider: Emy Kohli RN - Reason: Contraindicated)2100 (Not Given - Provider: Dalila Cortes RN - Reason: Other - Comment: has diarrhea from laxatives yesterday) 0900 (Not Given - Provider: Ayush Bosch RN - Reason: Patient/family refused) polyethylene glycol (Glycolax, Miralax) packet 17 g 17 g, oral, Daily, First dose (after last modification) on Fri06/21/23 at 0900, Bowel Regimen - for prevention of constipation. sennosides-docusate sodium (Bobbi-Colace) 8.6-50 mg per tablet 2 tablet 2 tablet, oral, 2 times daily, First dose on Fri06/17/23 at 0930 0856 (Given - Provider: Lior Ledesma RN)2100 (Not Given - Provider: Dalila Cortes RN - Reason: Other - Comment: held due to loose stools) 0900 (Not Given - Provider: Emy Kohli RN - Reason: Contraindicated)2100 (Not Given - Provider: Dalila Cortes RN - Reason: Other - Comment: has diarrhea from laxatives yesterday) 0900 (Not Given - Provider: Ayush Bosch RN - Reason: Patient/family refused)2100 (Due) sodium chloride 0.9 % bolus 1,000 mL (COMPLETED) 1,000 mL, intravenous, at 1,000 mL/hr, Administer over 1 Hours, Once, On Leana 06/19/23 at 0045, For 1 dose 0041 (New Bag - Provider: Dalila Cortes RN)0141 (Stopped - Provider: Dalila Cortes RN) topiramate (Topamax) tablet 100 mg (CANCELED) 100 mg, oral, 2 times daily, First dose on Fri06/17/23 at 1230 1119 (Given - Provider: Lior Ledesma RN) topiramate (Topamax) tablet 50 mg 50 mg, oral, 2 times daily, First dose (after last modification) on Fri06/18/23 at 2100 2100 (Not Given - Provider: Dalila Cortes RN - Reason: Other - Comment: had 100mg today already) 1202 (Given - Provider: Emy Kohli RN)2020 (Given - Provider: Dalila Cortes RN) 1152 (Given - Provider: Ayush Bosch RN)2100 (Due) Continuous Medication Order 06/18/2023 06/19/2023 06/20/2023 lactated Ringer's infusion () 85 mL/hr, intravenous, Continuous, Starting on Leana 06/19/23 at 0045, For 12 hours, Start after bolus 0152 (New Bag - Provider: Dalila Cortes RN)0544 (Rate/Dose Verify - Provider: Dalila Cortes RN)0935 (Continued by Anesthesia - Provider: LYUDMILA Crystal)1019 (Anesthesia Volume Adjustment - Provider: LYUDMILA Crystal)1700 (Stopped - Provider: Emy Kohli RN) lactated Ringer's infusion (CANCELED) 100 mL/hr, intravenous, Continuous, Starting on Leana 06/19/23 at 1115, Recovery (only) 0227 (New Bag - Provider: Dalila Cortes, RN)1041 (Stopped - Provider: Ayush Bosch RN) PRN Medication Order 06/18/2023 06/19/2023 06/20/2023 dextrose 50 % injection 25 g 25 g, intravenous, Every 15 min PRN, For blood glucose less than or equal to 40 mg/dL, Starting on Fri06/17/23 at 0202, May repeat until blood glucose level reaches 100 mg/dL or greater. Push 2 - 3 mL/minute if patient has secure IV access. dicyclomine (Bentyl) capsule 10 mg 10 mg, oral, 3 times daily PRN, abdominal discomfort, concern for colonic spasms, Starting on Fri06/17/23 at 1243 0626 (Given - Provider: Sushila Quispe RN)2000 (Given - Provider: Dalila Cortes, MIRYAM) 1202 (Given - Provider: Emy Kohli RN) fentaNYL PF (Sublimaze) injection (COMPLETED) intravenous, Once PRN Procedure, Starting on Fri06/20/23 at 1044, For 1 dose, Intraprocedure 1044 (Given - Provider: Raine Norman, MIRYAM) glucagon (Glucagen) injection 1 mg 1 mg, intramuscular, Every 15 min PRN, low blood sugar - see comments, For blood glucose less than or equal to 70 mg/dL and no IV access, Starting on Fri06/17/23 at 0202, Give until blood glucose is 100 mg/dL or greater. If patient DOES NOT HAVE secure IV access & patient is unconscious, NPO or is unable to eat or drink. HYDROmorphone (Dilaudid) injection 0.5 mg (CANCELED) 0.5 mg, intravenous, Every 5 min PRN, pain severe (7-10), first line, Starting on Leana 06/19/23 at 1047, Recovery (only), Max total of 4 mg regardless of dose. 1034 (Given - Provider: Lisa Shields, MIRYAM)1050 (Given - Provider: Lisa Shields, RN) 0053 (Given - Provider: Dalila Cortes, MIRYAM) lidocaine PF (Xylocaine) 10 mg/mL (1 %) injection (COMPLETED) infiltration, Once PRN Procedure, Starting on Fri06/20/23 at 1045, For 1 dose, Intraprocedure 1045 (Given - Provider: Augie Archibald MD) lubricating eye drops ophthalmic solution 1 drop 1 drop, Both Eyes, 4 times daily PRN, dry eyes, Starting on Fri06/17/23 at 1211 melatonin tablet 3 mg 3 mg, oral, Daily PRN, sleep, Starting on Fri06/17/23 at 0158 midazolam (Versed) injection (COMPLETED) intravenous, Once PRN Procedure, Starting on Fri06/20/23 at 1044, For 1 dose, Intraprocedure 1044 (Given - Provider: Raine Norman RN) morphine injection 2 mg (COMPLETED) 2 mg, intravenous, Every 3 hours PRN, pain moderate (4-6), first line, pain severe (7-10), first line, Starting on Fri06/19/23 at 0422, For 3 doses 0436 (Given - Provider: Dalila Cortes RN)1558 (Given - Provider: Emy Kohli RN)2020 (Given - Provider: Dalila Cortes RN) ondansetron (Zofran) injection 4 mg 4 mg, intravenous, Every 6 hours PRN, nausea/vomiting, first line, Starting on Fri06/17/23 at 0200, 1st Line. Give IV if patient is unable to take orally. If inadequate response within 60 minutes, proceed to next-line agent for same PRN reason or contact provider if no further options ordered. When administering via IV Push, administer over 3-5 minutes. 0247 (Given - Provider: Sushila Quispe RN)0856 (Given - Provider: Lior Ledesma RN)1933 (Given - Provider: Dalila Cortes RN) 0153 (Given - Provider: Dalila Cortes RN)0945 (Given - Provider: Alva Jeffery APRN-[employer] WAISTLINE JOINER)1021 (Due)1814 (Given - Provider: Emy Kohli RN) 0053 (Given - Provider: Dalila Cortes RN) ondansetron (Zofran) injection 4 mg (COMPLETED) 4 mg, intravenous, Once as needed, nausea/vomiting, first line, Starting on Fri06/19/23 at 1047, For 1 dose, Recovery (only), When administering via IV Push, administer over 3-5 minutes. 1022 (Given - Provider: Lisa Shields, MIRYAM) oxyCODONE (Roxicodone) immediate release tablet 5 mg 5 mg, oral, Every 6 hours PRN, pain severe (7-10), first line, Starting on Fri06/20/23 at 1251, If ordered PRN for pain, nurse is permitted to administer this medication for higher pain scores based on patient preference? Yes prochlorperazine (Compazine) injection 10 mg 10 mg, intravenous, Every 6 hours PRN, nausea/vomiting, second line, Starting on Fri06/17/23 at 2206, Give IV if patient is unable to take orally. 1328 (Given - Provider: Lior Ledesma RN) 1319 (Given - Provider: Emy Kohli RN) simethicone (Mylicon) drops (COMPLETED) As needed, Starting on Leana 06/19/23 at 0944, Intraprocedure 0944 (Given - Provider: Deirdre Krause MD) Scheduled Medication Order 09/01/2023 09/02/2023 09/03/2023 ARIPiprazole (Abilify) tablet 5 mg 5 mg, oral, Daily, First dose on 08/31/23 at 1615 0932 (Given - Provider: Rach Alvarenga RN) 0809 (Given - Provider: Olga Martinez, MIRYAM) 0851 (Given - Provider: Radha Plummer, MIRYAM) cholestyramine light (Prevalite) 4 gram packet 4 g 4 g, oral, 2 times daily, First dose on 08/31/23 at 2100 0932 (Given - Provider: Rach Alvarenga, MIRYAM)2041 (Given - Provider: Heather Escalante, MIRYAM) 0809 (Not Given - Provider: Olga Martinez, MIRYAM - Reason: Patient/family refused)2035 (Given - Provider: Heather Escalante RN) 0851 (Given - Provider: Radha Plummer, MIRYAM)2099 (Due) cyanocobalamin (Vitamin B-12) tablet 1,000 mcg 1,000 mcg, oral, Daily, First dose on 08/31/23 at 1615 0932 (Given - Provider: Rach Alvarenga RN) 0809 (Given - Provider: Olga Martinez RN) 0851 (Given - Provider: Radha Plummer RN) FLUoxetine (PROzac) capsule 20 mg 20 mg, oral, Daily, First dose on Fri09/01/23 at 0900 0932 (Given - Provider: Rach Alvarenga RN) 0809 (Given - Provider: Olga Martinez RN) 0851 (Given - Provider: Radha Plummer RN) gadoterate meglumine (Dotarem) 0.5 mmol/mL contrast injection 17 mL (COMPLETED) 17 mL, intravenous, Once in imaging, Starting on Fri09/01/23 at 1542, For 1 dose, Administer undiluted as rapid I.V. bolus injection 1543 (Given - Provider: Puja Kirkpatrick) insulin glargine (Lantus) injection 32 Units 32 Units, subcutaneous, Every 24 hours, First dose on 08/31/23 at 2100 204 (Given - Provider: Heather Escalante RN) 2038 (Given - Provider: Heather Escalante RN) 2100 (Due) insulin lispro (HumaLOG) injection 0-5 Units 0-5 Units, subcutaneous, 3 times daily (morning, midday, late afternoon), First dose on 08/31/23 at 1700, Do not hold when patient is not eating, continue order as scheduled for hyperglycemia management. Insulin Lispro Corrective Scale #1 Hypoglycemia protocol Call LIP unit(s) if Blood Glucose is between 0 - 70 mg/dL 0 unit(s) if Blood glucose is between 71-150 1 unit(s) if Blood glucose is between 151-200 2 unit(s) if Blood glucose is between 201-250 3 unit(s) if Blood glucose is between 251-300 4 unit(s) if Blood glucose is between 301-350 5 unit(s) if Blood glucose is between 351-400 Notify provider unit(s) if Blood Glucose is greater than 400 mg/dL 0934 (Given - Provider: Rach Alvarenga RN)1200 (Not Given - Provider: Rach Alvarenga RN - Reason: Order parameters not met - Comment: BS 135)1700 (Not Given - Provider: Rach Alvarenga RN - Reason: Order parameters not met - Comment: BS 134) 0810 (Given - Provider: Sandrine Walker RN - Comment: BG [phone])1208 (Given - Provider: Olga Martinez RN - Comment: BG [phone])1718 (Given - Provider: Olga Martinez RN) 0857 (Given - Provider: Radha Plummer RN)1248 (Given - Provider: Radha Plummer RN)1700 (Due) pantoprazole (ProtoNix) EC tablet 40 mg 40 mg, oral, Daily before breakfast, First dose on 09/01/23 at 0700, Do not crush, chew, or split. 0939 (Given - Provider: Rach Alvarenga RN) 0815 (Given - Provider: Olga Martinez RN) 0850 (Given - Provider: Radha Plummer RN) polyethylene glycol (Glycolax, Miralax) packet 17 g 17 g, oral, Daily, First dose on 08/31/23 at 1615, Bowel Regimen - for prevention of constipation. 0900 (Not Given - Provider: Rach Alvarenga RN - Reason: Patient/family refused) 0900 (Not Given - Provider: Olga Martinez RN - Reason: Patient/family refused) 0851 (Given - Provider: Radha Plummer RN) topiramate (Topamax) tablet 50 mg 50 mg, oral, 2 times daily, First dose on 08/31/23 at 2100 0932 (Given - Provider: Rach Alvarenga RN)2042 (Given - Provider: Heather Escalante RN) 0809 (Given - Provider: Olga Martinez RN)2036 (Given - Provider: Heather Escalante RN) 0851 (Given - Provider: Radha Plummer RN)2100 (Due) Continuous Medication Order 09/01/2023 09/02/2023 09/03/2023 sodium chloride 0.9% infusion 75 mL/hr, intravenous, Continuous, Starting on 08/31/23 at 1615 0029 (New Bag - Provider: Melissa Jaquez RN)0931 (New Bag - Provider: Rach Alvarenga RN)1409 (Rate/Dose Verify - Provider: Rach Alvarenga RN)1411 (Rate/Dose Change - Provider: Rach Alvarenga RN)1725 (Rate/Dose Verify - Provider: Rach Alvarenga RN)2339 (New Bag - Provider: Heather Escalante RN)2348 (Rate/Dose Verify - Provider: Heather Escalante RN) 0500 (Rate/Dose Verify - Provider: Heather Escalante RN)0754 (Rate/Dose Verify - Provider: Olga Martinez RN)1015 (Rate/Dose Verify - Provider: Olga Martinez RN)1224 (Rate/Dose Verify - Provider: Olga Martinez RN)1402 (New Bag - Provider: Olga Martinez RN)1437 (Rate/Dose Verify - Provider: Olga Martinez RN)1710 (Rate/Dose Verify - Provider: Olga Martinez RN) 0230 (New Bag - Provider: Heather Escalante RN) PRN Medication Order 09/01/2023 09/02/2023 09/03/2023 acetaminophen (Tylenol) oral liquid 650 mg(Linked Group 1) 650 mg, nasogastric tube, Every 4 hours PRN, fever (temp greater than 38.0 C), greater than or equal to 38 C, Starting on 08/31/23 at 1545 1035 (See Alternative - Provider: Radha Plummer RN) acetaminophen (Tylenol) oral liquid 650 mg(Linked Group 2) 650 mg, oral, Every 4 hours PRN, pain mild (1-3), first line, Starting on 08/31/23 at 1545, Give oral liquid per feeding tube if present. acetaminophen (Tylenol) suppository 650 mg(Linked Group 1) 650 mg, rectal, Every 4 hours PRN, fever (temp greater than 38.0 C), greater than or equal to 38 C, Starting on 08/31/23 at 1545, If ordered PRN for pain, nurse is permitted to administer this medication for higher pain scores based on patient preference? Yes 1035 (See Alternative - Provider: Radha Plummer RN) acetaminophen (Tylenol) suppository 650 mg(Linked Group 2) 650 mg, rectal, Every 4 hours PRN, pain mild (1-3), first line, Starting on 08/31/23 at 1545, Give rectally if unable to administer by mouth or feeding tube., If ordered PRN for pain, nurse is permitted to administer this medication for higher pain scores based on patient preference? Yes acetaminophen (Tylenol) tablet 650 mg(Linked Group 1) 650 mg, oral, Every 4 hours PRN, fever (temp greater than 38.0 C), greater than or equal to 38 C, Starting on 08/31/23 at 1545, If ordered PRN for pain, nurse is permitted to administer this medication for higher pain scores based on patient preference? Yes 1035 (Given - Provider: Radha Plummer RN) acetaminophen (Tylenol) tablet 650 mg(Linked Group 2) 650 mg, oral, Every 4 hours PRN, pain mild (1-3), first line, Starting on Fri08/31/23 at 1545, If ordered PRN for pain, nurse is permitted to administer this medication for higher pain scores based on patient preference? Yes benzocaine-menthol (Cepastat Sore Throat) lozenge 1 lozenge 1 lozenge, Mouth/Throat, Every 2 hour PRN, sore throat, Starting on Fri08/31/23 at 2109 dextrose 50 % injection 12.5 g 12.5 g, intravenous, Every 15 min PRN, For blood glucose less than or equal to 70 mg/dL, Starting on Fri08/31/23 at 1544, May repeat until blood glucose level reaches 100 mg/dL or greater. Push 2 - 3 mL/minute if patient has secure IV access. dextrose 50 % injection 25 g 25 g, intravenous, Every 15 min PRN, For blood glucose less than or equal to 40 mg/dL, Starting on Fri08/31/23 at 1544, May repeat until blood glucose level reaches 100 mg/dL or greater. Push 2 - 3 mL/minute if patient has secure IV access. dicyclomine (Bentyl) capsule 10 mg 10 mg, oral, 3 times daily PRN, concern for colonic spasms, Starting on Fri09/03/23 at 0839 1035 (Given - Provider: Radha Plummer RN) glucagon (Glucagen) injection 1 mg 1 mg, intramuscular, Every 15 min PRN, low blood sugar - see comments, For blood glucose less than or equal to 40 mg/dL and no IV access, Starting on Fri08/31/23 at 1544, Give until blood glucose is 100 mg/dL or greater. If patient DOES NOT HAVE secure IV access & patient is unconscious, NPO or is unable to eat or drink. glucagon (Glucagen) injection 1 mg 1 mg, intramuscular, Every 15 min PRN, low blood sugar - see comments, For blood glucose less than or equal to 70 mg/dL and no IV access, Starting on 08/31/23 at 1544, Give until blood glucose is 100 mg/dL or greater. If patient DOES NOT HAVE secure IV access & patient is unconscious, NPO or is unable to eat or drink. meclizine (Antivert) tablet 25 mg 25 mg, oral, 3 times daily PRN, dizziness, Starting on 08/31/23 at 1545 morphine injection 0.5 mg 0.5 mg, intravenous, Every 4 hours PRN, pain moderate (4-6), first line, Starting on 08/31/23 at 1545 2338 (Given - Provider: Heather Escalante RN) 0429 (Given - Provider: Heather Escalante RN) morphine injection 1 mg 1 mg, intravenous, Every 4 hours PRN, pain severe (7-10), first line, Starting on 08/31/23 at 1545 0038 (Given - Provider: Melissa Jaquez RN)0511 (Given - Provider: Melissa Jaquez RN)1110 (Given - Provider: Rach Alvarenga, MIRYAM)1815 (Given - Provider: Rach Alvarenga, MIRYAM) 0834 (Given - Provider: Olga Martinez, MIRYAM)1306 (Given - Provider: Olga Martinez RN)1718 (Given - Provider: Olga Martinez, MIRYAM)2230 (Given - Provider: Heather Escalante, RN) 0231 (Given - Provider: Heather Escalante, RN)0637 (Given - Provider: Heather Escalante, RN) ondansetron (Zofran) injection 4 mg(Linked Group 3) 4 mg, intravenous, Every 8 hours PRN, nausea/vomiting, first line, Starting on 08/31/23 at 1545, 1st Line. Give IV if patient is unable to take orally. If inadequate response within 60 minutes, proceed to next-line agent for same PRN reason or contact provider if no further options ordered. When administering via IV Push, administer over 3-5 minutes. 0512 (Given - Provider: Melissa Jaquez RN) ondansetron ODT (Zofran-ODT) disintegrating tablet 4 mg(Linked Group 3) 4 mg, oral, Every 8 hours PRN, nausea/vomiting, first line, Starting on 08/31/23 at 1545, 1st Line. Use oral route first, if possible. If inadequate response within 60 minutes, proceed to next-line agent for same PRN reason or contact provider if no further options ordered. 0512 (See Alternative - Provider: Melissa Jaquez RN) Linked Groups Order Group 1: acetaminophen (Tylenol) tablet 650 mgJump to med 650 mg, oral, Every 4 hours PRN, fever (temp greater than 38.0 C), greater than or equal to 38 C, Starting on 08/31/23 at 1545, If ordered PRN for pain, nurse is permitted to administer this medication for higher pain scores based on patient preference? Yes Or acetaminophen (Tylenol) oral liquid 650 mgJump to med 650 mg, nasogastric tube, Every 4 hours PRN, fever (temp greater than 38.0 C), greater than or equal to 38 C, Starting on 08/31/23 at 1545 Or acetaminophen (Tylenol) suppository 650 mgJump to med 650 mg, rectal, Every 4 hours PRN, fever (temp greater than 38.0 C), greater than or equal to 38 C, Starting on 08/31/23 at 1545, If ordered PRN for pain, nurse is permitted to administer this medication for higher pain scores based on patient preference? Yes Group 2: acetaminophen (Tylenol) tablet 650 mgJump to med 650 mg, oral, Every 4 hours PRN, pain mild (1-3), first line, Starting on 08/31/23 at 1545, If ordered PRN for pain, nurse is permitted to administer this medication for higher pain scores based on patient preference? Yes Or acetaminophen (Tylenol) oral liquid 650 mgJump to med 650 mg, oral, Every 4 hours PRN, pain mild (1-3), first line, Starting on 08/31/23 at 1545, Give oral liquid per feeding tube if present. Or acetaminophen (Tylenol) suppository 650 mgJump to med 650 mg, rectal, Every 4 hours PRN, pain mild (1-3), first line, Starting on 08/31/23 at 1545, Give rectally if unable to administer by mouth or feeding tube., If ordered PRN for pain, nurse is permitted to administer this medication for higher pain scores based on patient preference? Yes Group 3: ondansetron ODT (Zofran-ODT) disintegrating tablet 4 mgJump to med 4 mg, oral, Every 8 hours PRN, nausea/vomiting, first line, Starting on 08/31/23 at 1545, 1st Line. Use oral route first, if possible. If inadequate response within 60 minutes, proceed to next-line agent for same PRN reason or contact provider if no further options ordered. Or ondansetron (Zofran) injection 4 mgJump to med 4 mg, intravenous, Every 8 hours PRN, nausea/vomiting, first line, Starting on 08/31/23 at 1545, 1st Line. Give IV if patient is unable to take orally. If inadequate response within 60 minutes, proceed to next-line agent for same PRN reason or contact provider if no further options ordered. When administering via IV Push, administer over 3-5 minutes. Scheduled Medication Order 02/05/2024 02/06/2024 02/07/2024 ARIPiprazole (Abilify) tablet 5 mg 5 mg, oral, Daily, First dose on Fri02/06/24 at 0900 0925 (Given - Provider: Malgorzata Cazares RN) 0848 (Given - Provider: Jayda Villegas RN) cholestyramine light (Prevalite) 4 gram packet 4 g 4 g, oral, 2 times daily (morning and late afternoon), First dose on Fri02/06/24 at 0800 0925 (Given - Provider: Malgorzata Cazares RN)1748 (Not Given - Provider: Malgorzata Cazares RN - Reason: Medication not available) 0831 (Given - Provider: Jayda Villegas RN)1700 (Due) FLUoxetine (PROzac) capsule 40 mg 40 mg, oral, Daily (629), First dose on Fri02/06/24 at 0630 0924 (Given - Provider: Malgorzata Cazares RN - Comment: pt. takes after breakfast) 0848 (Given - Provider: Jayda Villegas RN) insulin glargine (Lantus) injection 60 Units 60 Units, subcutaneous, Daily before breakfast, First dose on Fri02/06/24 at 0700 0836 (Given - Provider: Heather Jarrett RN) 0827 (Not Given - Provider: Jayda Villegas RN - Reason: See Provider Order - Comment: HOLD per dr. Mo) insulin lispro (HumaLOG) injection 0-20 Units 0-20 Units, subcutaneous, 3 times daily before meals and nightly, First dose on Fri02/06/24 at 0700, Do not hold when patient is not eating, continue order as scheduled for hyperglycemia management. Insulin Lispro Corrective Scale #4 Hypoglycemia protocol Call LIP unit(s) if Blood Glucose is between 0 - 70 mg/dL 0 unit(s) if Blood glucose is between 71-150 4 unit(s) if Blood glucose is between 151-200 8 unit(s) if Blood glucose is between 201-250 12 unit(s) if Blood glucose is between 251-300 16 unit(s) if Blood glucose is between 301-350 20 unit(s) if Blood glucose is between 351-400 Notify provider unit(s) if Blood Glucose is greater than 400 mg/dL 0742 (Not Given - Provider: Malgorzata Cazares RN - Reason: Order parameters not met - Comment: bs [phone] (Not Given - Provider: Malgorzata Cazares RN - Reason: Order parameters not met - Comment: bs [phone] (Not Given - Provider: Malgorzata Cazares RN - Reason: Order parameters not met - Comment: bs [phone] (Not Given - Provider: Ayush Wilkins RN - Reason: Contraindicated - Comment: [phone]) 0808 (Not Given - Provider: Jayda Villegas RN - Reason: Order parameters not met - Comment: acc check [phone] (Not Given - Provider: Jayda Villegas RN - Reason: Order parameters not met - Comment: acc check [phone] (Due)2100 (Due) iohexol (OMNIPaque) 350 mg iodine/mL solution 68 mL (COMPLETED) 68 mL, intravenous, Once in imaging, Starting on Fri02/05/24 at 1709, For 1 dose 1710 (Given - Provider: Nicola Jane) ketorolac (Toradol) injection 15 mg (COMPLETED) 15 mg, intravenous, Once, On Leana 02/05/24 at 1725, For 1 dose 1730 (Given - Provider: Rica Chanel RN) ketorolac (Toradol) injection 30 mg 30 mg, intravenous, Every 6 hours scheduled, First dose on Fri02/06/24 at 0215, For 5 days 0405 (Given - Provider: Raine Wilkinson RN)0925 (Given - Provider: Malgorzata Cazares RN)1601 (Given - Provider: Yany Mendez RN) 0058 (Not Given - Provider: Ayush Wilkins RN - Reason: Patient/family refused)0531 (Given - Provider: Ayush Wilkins RN - Comment: pt changed mind and wanted medication)1121 (Given - Provider: Jayda Villegas RN)1700 (Due - Provider: Natalia Guan Friday Kang [facility])2300 (Due - Provider: Natalia Guan Friday Kang [facility]) morphine injection 4 mg (COMPLETED) 4 mg, intravenous, Once, On Leana 02/05/24 at 1605, For 1 dose 1620 (Given - Provider: Rica Chanel RN) ondansetron (Zofran) injection 4 mg (COMPLETED) 4 mg, intravenous, Once, On Leana 02/05/24 at 1605, For 1 dose, When administering via IV Push, administer over 3-5 minutes. 1618 (Given - Provider: Rica Chanel RN) pantoprazole (ProtoNix) EC tablet 40 mg 40 mg, oral, Daily before breakfast, First dose on Fri02/06/24 at 0700, Do not crush, chew, or split. 0924 (Given - Provider: Malgorzata Cazares RN - Comment: pt. takes after breakfast) 0831 (Given - Provider: Jayda Villegas RN) resmetirom tablet 80 mg 80 mg, oral, Daily, First dose on Fri02/06/24 at 0900 0900 (Due) 0845 (Not Given - Provider: Jayda Villegas RN - Reason: Other - Comment: not availaable) topiramate (Topamax) tablet 50 mg 50 mg, oral, 2 times daily, First dose on Fri02/06/24 at 0900 0925 (Given - Provider: Malgorzata Cazares RN)1952 (Given - Provider: Ayush Wilkins RN - Comment: pt request) 0848 (Given - Provider: Jayda Villegas RN)1952 (Due - Provider: Ayush Wilkins RN)2100 (Due) PRN Medication Order 02/05/2024 02/06/2024 02/07/2024 dextrose 50 % injection 12.5 g 12.5 g, intravenous, Every 15 min PRN, For blood glucose 41 to 70 mg/dL, Starting on Fri02/06/24 at 0317, May repeat until blood glucose level reaches 100 mg/dL or greater. Push 2 - 3 mL/minute if patient has secure IV access. dextrose 50 % injection 25 g 25 g, intravenous, Every 15 min PRN, For blood glucose less than or equal to 40 mg/dL, Starting on Fri02/06/24 at 0317, May repeat until blood glucose level reaches 100 mg/dL or greater. Push 2 - 3 mL/minute if patient has secure IV access. glucagon (Glucagen) injection 1 mg 1 mg, intramuscular, Every 15 min PRN, blood glucose less than or equal to 40 mg/dL - see comments, For blood glucose less than or equal to 40 mg/dL and no IV access, Starting on Fri02/06/24 at 0317, Give until blood glucose is 100 mg/dL or greater. If patient DOES NOT HAVE secure IV access & patient is unconscious, NPO or is unable to eat or drink. glucagon (Glucagen) injection 1 mg 1 mg, intramuscular, Every 15 min PRN, low blood sugar - see comments, For blood glucose less than or equal to 70 mg/dL and no IV access, Starting on Fri02/06/24 at 0317, Give until blood glucose is 100 mg/dL or greater. If patient DOES NOT HAVE secure IV access & patient is unconscious, NPO or is unable to eat or drink. morphine injection 2 mg 2 mg, intravenous, Every 3 hours PRN, pain severe (7-10), first line, Starting on Fri02/06/24 at 0115 0130 (Given - Provider: Raine Wilkinson RN)0726 (Given - Provider: Raine Wilkinson RN) 0847 (Given - Provider: Jayda Villegas, MIRYAM) oxyCODONE (Roxicodone) immediate release tablet 5 mg 5 mg, oral, Every 4 hours PRN, pain moderate (4-6), first line, Starting on 02/06/24 at 0311, If ordered PRN for pain, nurse is permitted to administer this medication for higher pain scores based on patient preference? Yes 1504 (Given - Provider: Malgorzata Cazares, MIRYAM)1953 (Given - Provider: Ayush Wilkins, MIRYAM) 0548 (Given - Provider: Ayush Wilkins, MIRYAM) Scheduled Medication Order 02/10/2024 02/11/2024 02/12/2024 ondansetron (Zofran) injection 4 mg (COMPLETED) 4 mg, intravenous, Once, On Leana 02/12/24 at 0110, For 1 dose, When administering via IV Push, administer over 3-5 minutes. 0115 (Given - Provid er: Parvin Padilla RN) Scheduled Medication Order 05/20/2024 05/21/2024 05/22/2024 iohexol (OMNIPaque) 350 mg iodine/mL solution 72 mL (COMPLETED) 72 mL, intravenous, Once in imaging, Starting on 05/22/24 at 0112, For 1 dose 0113 (Given - Provid er: Aurelia Brandt) morphine injection 4 mg (COMPLETED) 4 mg, intravenous, Once, On Fri05/21/24 at 2320, For 1 dose 2334 (Given - Provider: Marysol Love, MIRYAM) ondansetron (Zofran) injection 4 mg (COMPLETED) 4 mg, intravenous, Once, On Fri05/21/24 at 2320, For 1 dose, When administering via IV Push, administer over 3-5 minutes. 2333 (Given - Provider: Marysol Love, MIRYAM) Scheduled Medication Order 06/17/2024 06/18/2024 06/19/2024 iohexol (OMNIPaque) 350 mg iodine/mL solution 69 mL (COMPLETED) 69 mL, intravenous, Once in imaging, Starting on 06/19/24 at 1339, For 1 dose 1339 (Given - Provid er: Raul Rico, RT - Comment: 3.8 mL/s) Scheduled Medication Order 08/23/2024 08/24/2024 08/25/2024 pantoprazole (Protonix) injection 40 mg (COMPLETED) 40 mg, intravenous, Once, On Fri08/24/24 at 2310, For 1 dose, Reconstitute each 40 mg vial with 10 mL NS to make 4 mg/mL solution. 2336 (Given - Provider: Lorene Swift RN) sucralfate (Carafate) tablet 1 g (COMPLETED) 1 g, oral, Once, On Fri08/25/24 at 0010, For 1 dose, Give on an empty stomach (1 hr before meals, at bedtime). Separate all other meds by at least 2 hours (exception: antacids may be given only 30 minutes apart). 0015 (Given - Provid er: Lorene Swift RN) Scheduled Medication Order 11/22/2024 11/23/2024 11/24/2024 diazePAM (Valium) tablet 5 mg (COMPLETED) 5 mg, oral, Once, On Fri11/24/24 at 0205, For 1 dose 0208 (Given - Provid er: Marysol Love RN) HYDROmorphone (Dilaudid) injection 0.5 mg (COMPLETED) 0.5 mg, intramuscular, Once, On Fri11/24/24 at 0205, For 1 dose 0207 (Given - Provid er: Marysol Love RN) ketorolac (Toradol) injection 15 mg (COMPLETED) 15 mg, intramuscular, Once, On Fri11/24/24 at 0205, For 1 dose 0207 (Given - Provid er: Marysol Love RN) FOR RECORDS PERTAINING TO PATIENTS WHO ARE OR HAVE BEEN ENROLLED IN A CHEMICAL DEPENDENCY/SUBSTANCEABUSE PROGRAM, SOME INFORMATION MAY BE OMITTED. This clinical summary was aggregated from multiple sources. Caution should be exercised in using it in the provision of clinical care. This summary normalizes information from multiple sources, and as a consequence, information in this document may materially change the coding, format and clinical context of patient data. In addition, data may be omitted in some cases. CLINICAL DECISIONS SHOULD BE BASED ON THE PRIMARY CLINICAL RECORDS. [employer] [facility]. provides no warranty or guarantee of the accuracy or completeness of information in this document.
== END 2024-11-24 21:13 | disposition home or self-care (01) ==
PROVIDERS: Emergency Provider Emergency Medicine; PCP Physician Assistant Medical; Visit Provider Emergency Medicine
DX: M43.06 Spondylolysis, lumbar region (principal); E11.9 Type 2 diabetes mellitus without complications; M51.26 Other intervertebral disc displacement, lumbar region; M21.70 Unequal limb length (acquired), unspecified site; K75.81 Nonalcoholic steatohepatitis (NASH)
CPT/HCPCS: 96374; 99283

== ENCOUNTER → 2025-01-13 | Outpatient (CLI) | payer MEDICAID, SELFPAY ==
[2025-01-13 13:16] LABS: Creatinine, Urine (random) 343.00 mg/dL (28.00-217.00); Microalbumin,Random Urine 137.0 mg/L (<20 mg/L)
[2025-01-13 13:26] LABS: AST(SGOT) 99 U/L (<=31); Alanine Aminotransfer ALT/SGPT 139 U/L (<=34); Albumin, Serum 4.3 g/dL (3.5-5.0); Alkaline Phosphatase 223 U/L (35-104); Anion Gap 14 (5-15); BUN 12 mg/dL (4-19); BUN/Creat Ratio 16.8 RATIO (10-20); Calcium,Total 9.2 mg/dL (7.6-11.0); Carbon Dioxide 22.3 mmol/L (21.0-32.0); Chloride 100 mmol/L (98-108); Cholesterol 221 mg/dL (<=200); Globulin 3.2 g/dL (2.2-4.2); Glucose 281 mg/dL (70-99); Low Density Lipoprotein Calc. 137 mg/dL; Potassium 3.9 mmol/L (3.3-5.1); Triglycerides 219 mg/dL; Very Low Density Lipoprotein 44 mg/dL (5-40); Vitamin D,25 Hydroxy 25.6 ng/mL (30-100); cholesterol:hdl ratio screen 5.51
== END | disposition home or self-care (01) ==
LOC: LAB 11:28
PROVIDERS: PCP Physician Assistant Medical; Referring Provider Nurse Practitioner Family; Visit Provider Nurse Practitioner Family
DX: E11.65 Type 2 diabetes mellitus with hyperglycemia (principal); Z79.4 Long term (current) use of insulin
CPT/HCPCS: 36415; 80053; 80061; 82043; 82306; 82570; 84443